=== PATIENT | male | born 1960 | race Caucasian/White ===

== ENCOUNTER 2016-06-29 | Outpatient (CLI) | END 2016-06-29 10:29 | disposition critical access hospital (66) | CPT/HCPCS: A0425; A0429 ==

== ENCOUNTER 2016-06-29 10:55 | Emergency (ER) | payer MEDICAID | END 2016-06-29 14:07 | disposition home or self-care (01) | DX: S90.822A Blister (nonthermal), left foot, initial encounter (principal); S90.821A Blister (nonthermal), right foot, initial encounter; X58.XXXA Exposure to other specified factors, initial encounter; G62.9 Polyneuropathy, unspecified; J44.9 Chronic obstructive pulmonary disease, unspecified; Z85.118 Personal history of other malignant neoplasm of bronchus and lung; F17.200 Nicotine dependence, unspecified, uncomplicated ==

== ENCOUNTER 2016-07-03 13:44 | Outpatient (CLI) | payer MEDICAID | END 2016-07-03 13:45 | disposition home or self-care (01) | DX: N40.0 Benign prostatic hyperplasia without lower urinary tract symptoms (principal) ==

== ENCOUNTER 2016-07-11 08:00 | Outpatient (CLI) | payer MEDICAID | END 2016-07-11 23:59 | disposition home or self-care (01) | DX: L97.519 Non-pressure chronic ulcer of other part of right foot with unspecified severity (principal); G62.9 Polyneuropathy, unspecified ==

== ENCOUNTER 2016-09-05 11:45 | Outpatient (CLI) | payer MEDICAID ==
--- NOTE | 2016-09-05 14:38 | XRAY Report ---
THREE-VIEW LEFT FOT: 09/05/2016 CLINICAL INDICATION: Pain. FINDINGS: AP, lateral, oblique views of the left foot are compared to previous films of 06/29/2016. There is no evidence of fracture or dislocation. Distal soft tissue swelling is unchanged. No radi opaque foreign body is seen in the soft tissues. IMPRESSION: SOFT TISSUE SWELLING. NO INTERVAL FRACTURE. JOB #: [id number] EXT JOB #:[id number]
== END 2016-09-05 11:46 | disposition home or self-care (01) ==
LOC: DI.S 11:45
PROVIDERS: ATTEND Nurse Practitioner Family
DX: M79.672 Pain in left foot (principal); G62.9 Polyneuropathy, unspecified; R22.42 Localized swelling, mass and lump, left lower limb

== ENCOUNTER 2016-10-03 14:25 | Outpatient (CLI) | payer MEDICAID | END 2016-10-03 14:26 | disposition home or self-care (01) | DX: G62.9 Polyneuropathy, unspecified (principal) ==

== ENCOUNTER 2016-10-09 13:50 | Outpatient (CLI) | payer MEDICAID | END 2016-10-09 13:51 | disposition home or self-care (01) | DX: M19.011 Primary osteoarthritis, right shoulder (principal) ==

== ENCOUNTER 2016-11-06 11:18 | Outpatient (CLI) | payer MEDICAID | END 2016-11-06 11:19 | disposition home or self-care (01) | DX: M51.36 Other intervertebral disc degeneration, lumbar region (principal); M47.896 Other spondylosis, lumbar region ==

== ENCOUNTER 2016-11-12 22:40 | Outpatient (CLI) | payer MEDICAID | END 2016-11-12 22:41 | disposition critical access hospital (66) | LOC: EMS 22:40 | PROVIDERS: ATTEND Surgery | DX: R07.9 Chest pain, unspecified (principal); R68.84 Jaw pain; R51 Headache | CPT/HCPCS: A0425; A0427 ==

== ENCOUNTER 2016-11-12 23:09 | Observation (INO) | payer MEDICAID ==
[2016-11-12] MEDS ORDERED: ASPIRIN CHEW 81 MG TABLET PO STA (23:15)
[2016-11-12] MEDS ORDERED: ASPIRIN CHEW 81 MG TABLET ONE (23:23)
[2016-11-12 23:36] LABS: BASOPHILS # (AUTO) 0.1 10^3/uL (0.0-0.1); EOSINOPHILS # (AUTO) 0.1 10^3/uL (0.0-0.7); EOSINOPHILS % (AUTO) 1.4 %; HCT - HEMATOCRIT 38.9 % (42.0-52.0); HGB - HEMOGLOBIN 13.5 g/dL (14.0-18.0); LYMPHOCYTES # (AUTO) 0.6 10^3/uL (1.5-3.5); LYMPHOCYTES % (AUTO) 10.8 %; MEAN CORPUSCULAR HEMOGLOBIN 32.7 pg (27.0-31.0); MEAN CORPUSCULAR HGB CONC 34.6 g/dL (32.0-36.0); MEAN CORPUSCULAR VOLUME 94.3 fL (80.0-94.0); MEAN PLATELET VOLUME 7.4 fL (7.4-11.4); MONOCYTES # (AUTO) 0.7 10^3/uL (0.0-1.0); MONOCYTES % (AUTO) 10.9 %; NEUTROPHILS # (AUTO) 4.5 10^3/uL (1.5-6.6); NEUTROPHILS % (AUTO) 75.9 %; NUCLEATED RED BLOOD CELLS AUTO 0.1 /100WBC; RED BLOOD COUNT 4.12 10^6/uL (4.70-6.10); RED CELL DISTRIBUTION WIDTH 15.8 % (12.0-15.0)
[2016-11-12 23:43] LABS: PT - PROTHROMBIN TIME 11.3 secs (9.9-12.6)
[2016-11-12 23:50] LABS: ALBUMIN/GLOBULIN RATIO 1.3 (1.0-2.2); BILIRUBIN,TOTAL 0.8 mg/dL (0.2-1.0); CALCIUM 8.7 mg/dL (8.5-10.3); CREATININE 0.9 mg/dL (0.6-1.2); TOTAL PROTEIN 7.3 g/dL (6.7-8.2)
--- NOTE | 2016-11-13 00:49 | CT Preliminary Report ---
Exam: CT Chest Angio (PE) IMPRESSION: 1. No pulmonary emboli seen. 2. Advanced emphysema. 3. Ill-defined irregular area of airspace opacity in the posterior segment of the right upper lobe is somewhat more platelike and less masslike compared with the prior CT of 2 years previously, but the overall region is larger at 7.2 x 5.0 cm. 4. Subtle bilateral interstitial disease with lower lobe predominance, increased compared with the pr ior CT. [facility] SITE ID: [id number]
[2016-11-13] MEDS ORDERED: IPRATROPIUM/ALBUTEROL 3 ML NEB INH STA ×3 (00:51→01:10)
--- NOTE | 2016-11-13 00:52 | CT Report ---
EXAM: CT ANGIOGRAM CHEST EXAM DATE: 11/13/2016 12:21 AM. CLINICAL HISTORY: Chest pain, hypoxia, tachycardia, lung ca. COMPARISON: 11/12/2014. TECHNIQUE: Routine helical imaging was performed through the chest in the pulmonary arterial phase. I V Contrast: Nonionic. Reconstructions: Coronal 3-D MIP reconstructions.Sagittal and coronal. In accordance with CT protocol optimization, one or more of the following dose reduction techniques w ere utilized for this exam: automated exposure control, adjustment of mA and/or KV based on patient s ize, or use of iterative reconstructive technique. FINDINGS: Pulmonary Arteries: Diagnostic quality: Adequate through the segmental arteries. No evidence for acute or chronic pulmona ry emboli. No evidence of right heart strain. Lungs/Pleura: Advanced emphysema. Irregular region of airspace opacity in the posterior segment of th e right upper lobe is larger but less masslike compared with the prior exam. Overall this area measur es about 7.2 x 5.0 cm, . There is mild interstitial disease bilaterally. No pleural effusion is s een. No pneumothorax is noted. Mediastinum: Heart size is normal. Coronary artery calcifications. Normal sized mediastinal lymph nod es. Thoracic Aorta: Ascending aorta measures 3.9 cm. Mild atherosclerosis. No aortic dissection. Upper Abdomen: Suspect fatty liver. Other: None. IMPRESSION: 1. No pulmonary emboli seen. 2. Advanced emphysema. 3. Ill-defined irregular area of airspace opacity in the posterior segment of the right upper lobe is somewhat more platelike and less masslike compared with the prior CT of 2 years previously, but the overall region is larger at 7.2 x 5.0 cm. 4. Subtle bilateral interstitial disease with lower lobe predominance, increased compared with the pr ior CT. [facility] Referring Provider Line: [phone] SITE ID: [id number]
--- NOTE | 2016-11-13 00:53 | XRAY Preliminary Report ---
Exam: XR Chest 1 View IMPRESSION: 1. Increased area of streaky right upper lobe opacity compared with 05/03/2015. See chest CT report. [facility] SITE ID: [id number]
--- NOTE | 2016-11-13 00:55 | XRAY Report ---
EXAM: CHEST RADIOGRAPHY EXAM DATE: 11/13/2016 12:21 AM. CLINICAL HISTORY: Chest pain and hypoxia. Tachycardia. Lung cancer. COMPARISON: 05/03/2015. TECHNIQUE: 1 view. FINDINGS: Lungs/Pleura: Moderate streaky right upper lobe opacity which is somewhat better seen on the chest CT . This area has increased in size compared with the prior exam. No pleural effusion. No pneumothorax. Mediastinum: Within exam limitations, cardiomediastinal contour is normal. Other: None. IMPRESSION: 1. Increased area of streaky right upper lobe opacity compared with 05/03/2015. See chest CT report. [facility] Referring Provider Line: [phone] SITE ID: [id number]
[2016-11-13] MEDS ORDERED: IPRATROPIUM/ALBUTEROL 3 ML NEB INH ONE ×3 (00:59→01:21)
--- NOTE | 2016-11-13 01:01 | ED Physician Documentation ---
PD HPI CHEST PAIN - Stated complaint Stated Complaint: CP - Chief complaint Chief Complaint: Cardiac - History obtained from History obtained from: Patient, EMS - History of Present Illness Timing - onset: How many days ago (2), Unknown Timing - onset during: Rest Timing - details: Gradual onset, Intermittant Quality: Pressure, Aching Location: Left chest, Left jaw Radiation: Jaw Improved by: Rest Worsened by: Exertion Associated symptoms: Feeling faint / dizzy. No: Shortness of air, Nausea, Vomiting Recently seen: Not recently seen - Additional information Additional information: Patient is a 56 year old male with a history of copd, (daily smoker and drinker) , htn, lung ca, htn and obesity who is presenting to the emergency department for chest pain. patient states that the chest pain has been going on for the last 2-3 days. Patient states that it is in his left chest with radiation into his left jaw. Patient denies aggravating or alleviating factors. Patient states that it never went away so he called ems. When ems arrived he was mildly htn. He was treated with nitro and morphine enroute. Review of Systems Constitutional: denies: Fever, Chills Eyes: denies: Photophobia Ears: denies: Ear pain, Drainage/discharge Nose: denies: Rhinorrhea / runny nose, Congestion Throat: denies: Dental pain / toothache, Oral lesions / sores, Sore throat Cardiac: reports: Chest pain / pressure. denies: Palpitations, Calf pain Respiratory: reports: Dyspnea, Cough, Wheezing GI: denies: Nausea, Vomiting, Constipation, Diarrhea : denies: Dysuria, Frequency, Hesitancy Skin: denies: Rash, Lesions Musculoskeletal: denies: Neck pain, Back pain, Extremity pain, Extremity swelling Neurologic: denies: Generalized weakness, Focal weakness Psychiatric: denies: Depressed Immunocompromised: denies: Immunocompromised PD PAST MEDICAL HISTORY - Past Medical History Cardiovascular: Hypertension, Coronary artery disease, Peripheral Vascular Disease Respiratory: Other Neuro: Peripheral neuropathy GI: GERD, Diverticulitis : Benign prostate hypertrophy Psych: Anxiety Musculoskeletal: Chronic back pain Derm: None - Past Surgical History Past Surgical History: Yes - Present Medications Home Medications: Ambulatory Orders Medication Instructions Recorded Confirmed Albuterol [Ventolin Hfa] 2 puffs INH BID PRN 11/11/14 11/12/16 Docusate Sodium 1 - 2 mg PO DAILY PRN 03/17/15 11/12/16 oxyCODONE [Roxicodone] 1 - 2 tab PO RTQ4H PRN 04/14/15 11/12/16 Loperamide [Imodium] 2 mg PO ONCE PRN 05/06/15 11/12/16 Lorazepam [Ativan] 1 mg PO Q8HR PRN 09/23/15 11/12/16 predniSONE [Deltasone] 2 tab PO BID 10/14/15 11/12/16 Metoprolol Succinate 100 mg PO DAILY 04/11/16 11/12/16 Potassium Gluconate 1 tab PO DAILY 04/11/16 11/12/16 Tamsulosin [Flomax] 1 cap PO DAILY 06/29/16 11/12/16 Cyanocobalamin (Vitamin B-12) 1,000 mcg PO DAILY 08/10/16 11/12/16 [Vitamin B-12] Esomeprazole Magnesium [Nexium 20 mg PO DAILY 08/10/16 11/12/16 24Hr] Gabapentin 600 mg PO BID 09/06/16 11/12/16 oxyCODONE [Roxicodone] 5 mg PO BID 09/06/16 11/12/16 Magnesium Oxide [Magnesium] 400 mg PO DAILY 10/09/16 11/12/16 Furosemide [Lasix] 20 mg PO DAILY 11/12/16 11/12/16 - Allergies Allergies/Adverse Reactions: Allergies Allergy/AdvReac Type Severity Reaction Status Date / Time BRONWYN Inhibitors Allergy Emesis Verified 11/12/16 23:14 lisinopril Allergy "THROAT Verified 11/12/16 23:14 SWELLING" - Social History Does the pt smoke?: Yes Smoking Status: Current every day smoker Does the pt drink ETOH?: Yes Does the pt have substance abuse?: No - Immunizations Immunizations are current?: Yes - POLST Patient has POLST: No PD ED PE NORMAL - Vitals Vital signs reviewed: Yes - General General: Alert and oriented X 3, No acute distress - HEENT HEENT: Atraumatic, PERRL - Neck Neck: No JVD - Neuro Neuro: No motor deficit, No sensory deficit, Normal speech - Psych Psych: Normal mood, Normal affect PD ED PE EXPANDED - General General: Alert, No acute distress - HEENT HEENT: Dry mucous membranes, Other (staining of teeth and walker from cigarette smoke) - Cardiac Cardiac: Tachy - Abdomen Abdomen: Other (obese). No: Rebound, Guarding - Extremities Extremities: Pedal edema bilateral Results - Vitals Vitals: Vital Signs - 24 hr 11/12/16 11/13/16 11/13/16 23:06 00:14 00:35 Temperature 36.6 C Heart Rate 123 H 98 Respiratory 22 16 Rate Blood Pressure 126/79 132/86 H O2 Saturation 93 94 89 L 11/13/16 11/13/16 00:36 01:11 Temperature Heart Rate 110 H Respiratory 16 Rate Blood Pressure O2 Saturation 95 Oxygen O2 Source Nasal cannula - EKG (time done) 2314 Rate: Rate (enter#) (116) Rhythm: Sinus tachycardia Bruin: Normal Intervals: Normal IN QRS: Normal Ischemia: ST depression Computer interpretation: Agree with computer - Labs Labs: Laboratory Tests 11/12/16 11/12/16 11/12/16 23:28 23:28 23:28 WBC 6.0 RBC 4.12 L Hgb 13.5 L Hct 38.9 L MCV 94.3 H MCH 32.7 H MCHC 34.6 RDW 15.8 H Plt Count 103 L MPV 7.4 Neut # 4.5 Lymph # 0.6 L [place] # 0.7 Eos # 0.1 Baso # 0.1 Absolute Nucleated RBC 0.00 Nucleated RBCs 0.1 PT 11.3 INR 1.0 APTT 27.0 Sodium 137 Potassium 4.0 Chloride 100 L Carbon Dioxide 25 Anion Gap 12.0 BUN 13 Creatinine 0.9 Estimated GFR (MDRD) 88 L Glucose 131 H Calcium 8.7 Total Bilirubin 0.8 AST 37 ALT 20 Alkaline Phosphatase 54 Troponin I B-Natriuretic Peptide Total Protein 7.3 Albumin 4.1 Globulin 3.2 Albumin/Globulin Ratio 1.3 Lipase 68 H 11/12/16 11/12/16 23:28 23:28 WBC RBC Hgb Hct MCV MCH MCHC RDW Plt Count MPV Neut # Lymph # [place] # Eos # Baso # Absolute Nucleated RBC Nucleated RBCs PT INR APTT Sodium Potassium Chloride Carbon Dioxide Anion Gap BUN Creatinine Estimated GFR (MDRD) Glucose Calcium Total Bilirubin AST ALT Alkaline Phosphatase Troponin I < 0.04 B-Natriuretic Peptide 22 Total Protein Albumin Globulin Albumin/Globulin Ratio Lipase - Rads (name of study) ct chest Radiology: Final report received (no PE, advanced emphysema, ), See rad report PD MEDICAL DECISION MAKING - ED course Complexity details: reviewed old records, reviewed results, re-evaluated patient , considered differential, d/w patient, d/w fitness consultant ED course: Patient was seen and examined at bedside. IV access was gained and labs were drawn. Patient was treated with aspirin. ekg was performed which showed sinus tachycardia. Due to the tachycardia, hypoxia and history of CA PE study was ordered. When patient's labs came back, PE study was performed. When patient returned the results were reviewed. patient had no PE. Patient's HEART score was 4 putting the patient at higher risk for a major cardiac event. Hospitalist was contacted and the case was discussed with her. patient was admitted under her service for further evaluation and care. Departure - Departure Disposition: ED Place in Observation Clinical Impression: Chest pain Condition: Good Discharge Date/Time: 11/13/16 01:41
[2016-11-13] MEDS ORDERED: ACETAMINOPHEN 325 MG TABLET PO PRN (01:17)
[2016-11-13] MEDS ORDERED: ONDANSETRON 4 MG/2 ML VIAL IVP PRN (01:17)
[2016-11-13] MEDS ORDERED: NITROGLYCERIN SL 0.4 MG TABLET SL PRN (01:21)
[2016-11-13] MEDS ORDERED: MAGNESIUM SULFATE 2 GRAM 50 ML IV ONE (01:27)
[2016-11-13] MEDS ORDERED: LORazepam 2 MG/ML SYRINGE IVP PRN (01:27)
[2016-11-13] MEDS ORDERED: LORazepam 0.5 MG TABLET PO PRN (01:34)
[2016-11-13] MEDS ORDERED: ALBUTEROL 8 GM INHALER INH PRN (01:34)
[2016-11-13] MEDS ORDERED: ALBUTEROL NEB 2.5 MG/3 ML INH PRN (01:37)
[2016-11-13 02:06] LABS: BASOPHILS % (AUTO) 0.7 %; EOSINOPHILS # (AUTO) 0.1 10^3/uL (0.0-0.7); EOSINOPHILS % (AUTO) 1.6 %; HCT - HEMATOCRIT 40.3 % (42.0-52.0); HGB - HEMOGLOBIN 13.4 g/dL (14.0-18.0); LYMPHOCYTES # (AUTO) 1.4 10^3/uL (1.5-3.5); LYMPHOCYTES % (AUTO) 24.7 %; MEAN CORPUSCULAR HGB CONC 33.4 g/dL (32.0-36.0); MEAN PLATELET VOLUME 7.4 fL (7.4-11.4); MONOCYTES # (AUTO) 0.6 10^3/uL (0.0-1.0); MONOCYTES % (AUTO) 11.7 %; NEUTROPHILS # (AUTO) 3.4 10^3/uL (1.5-6.6); NEUTROPHILS % (AUTO) 61.3 %; NUCLEATED RED BLOOD CELLS AUTO 0.1 /100WBC; RED CELL DISTRIBUTION WIDTH 15.6 % (12.0-15.0); UNCORRECTED WHITE BLOOD COUNT 5.6 x10^3/uL; WHITE BLOOD COUNT 5.6 x10^3/uL (4.8-10.8)
[2016-11-13 02:12] LABS: PT - PROTHROMBIN TIME 11.5 secs (9.9-12.6)
[2016-11-13 02:17] LABS: ALBUMIN/GLOBULIN RATIO 1.4 (1.0-2.2); BILIRUBIN,TOTAL 0.7 mg/dL (0.2-1.0); CALCIUM 8.7 mg/dL (8.5-10.3); POTASSIUM 3.8 mmol/L (3.5-5.0); TOTAL PROTEIN 7.3 g/dL (6.7-8.2)
[2016-11-13] MEDS: SODIUM CHLORIDE FLUSH 0.9% 10 ML SYRINGE IVP PRN ×4 (02:19→16:16)
[2016-11-13] MEDS: SODIUM CHLORIDE FLUSH 0.9% 10 ML SYRINGE IVP SCH ×4 (05:25→17:44)
[2016-11-13] MEDS: MORPHINE 2 MG/ML SYRINGE IVP PRN ×3 (05:25→16:12)
--- NOTE | 2016-11-13 05:57 | HISTORY & PHYSICAL EXAMINATION ---
DATE OF ADMISSION: 11/13/2016 CHIEF COMPLAINT: Chest pain. HISTORY OF PRESENT ILLNESS: This is a 56-year-old male with a history of COPD who presents with chest pain going on for approximately 2 days constant. He also has some epigastric discomfort along with s ome right upper quadrant pain. He notes some alternating constipation and diarrhea over the past few days. Denies any fevers or chills, has been nauseated x2 days and had some vomiting today. Notes no c hange in his COPD or coughing. He does have a history of coronary artery disease, had seen the cardio logist at [facility], but not recently. His evaluation in the emergency room includes an EKG, which shows sinus tachycardia at a rate of 116. No acute abnormalities seen. Initial troponin was le ss than 0.04. BNP is 22. Lipase was borderline elevated at 68. CTA of chest revealed no pulmonary emb adarsh, advanced emphysema, ill-defined irregular area of airspace and posterior segment of the right up per lobe, which is somewhat more platelike and less mass-like compared with prior CT of 2 years previ ously, but the oral region is larger, 7.2 and 5.0 cm. Of note, the patient does have a history of non small cell carcinoma of the lung that was treated with stereotactic radiation therapy. Her subtle sis ateral interstitial disease with lower lobe predominance compared with prior CT scan. Part of the [facility] er that was seen on CT of chest revealed suspect fatty liver. PAST MEDICAL HISTORY 1. History of chronic ITP associated with a prior, but treated hepatitis C. 2. History of nonsmall cell carcinoma of the lung, treated with stereotactic radiation. According to Dr. Ng's note from 11/01/2016, it was felt that there was no recurrence of nonsmall cell carc inoma of the lung present. 3. History of tobacco abuse. 4. History of ETOH dependence. MEDICATIONS UPON ADMISSION 1. Docusate 1-2 tabs p.o. daily. 2. Nexium 20 mg p.o. daily. 3. Lasix 20 mg p.o. daily. 4. Loperamide 2 mg p.o. p.r.n. 5. Magnesium oxide 400 mg p.o. daily. 6. Potassium gluconate 99 mg p.o. daily. 7. Oxycodone 5 mg p.o. b.i.d. and 1-2 tabs p.o. q.4h. p.r.n. pain. 8. Albuterol 2 puffs inhaled b.i.d. 9. Vitamin B12 1000 mcg p.o. daily. 10. Gabapentin 600 mg p.o. b.i.d. 11. Lorazepam 1 mg p.o. q.8h. p.r.n. anxiety. 12. Metoprolol succinate 100 mg p.o. daily. 13. Flomax 0.4 mg p.o. daily. 14. Prednisone 2 tabs p.o. b.i.d. ALLERGIES: BRONWYN INHIBITORS. SOCIAL HISTORY: Smoking half pack per day. Alcohol, 2 to 3 beers daily. FAMILY MEDICAL HISTORY: Mother and father with a history of lung carcinoma. REVIEW OF SYSTEMS: All other review of systems are reviewed and are negative except for as in HPI. PHYSICAL EXAMINATION VITAL SIGNS: Temperature is afebrile, heart rate 110, respiratory rate 18, 2 L nasal cannula, O2 satu ration 94%. CONSTITUTIONAL: Disheveled middle-aged male who appears older than his stated age. HEAD: Normocephalic, atraumatic. EYES: PERRLA-DC, EOMI. MOUTH: No lesions. NECK: No adenopathy. CHEST: Reveals scattered expiratory wheezes. COR: Regular rate and rhythm, S1, S2. ABDOMEN: Soft. There is tenderness in the epigastrium. Tenderness in the right upper quadrant. No rachel ound, no guarding. Bowel sounds are present. EXTREMITIES: Trace bilateral pedal edema. SKIN: Reveals no rashes. PSYCHIATRIC: Mood and affect are appropriate. NEUROLOGIC: Alert and oriented x3. Motor strength is intact bilaterally. LABORATORY: Sodium 137, potassium 4.0, chloride 100, bicarbonate 25, BUN 13, creatinine 0.9, calculat ed GFR 88, glucose 131, calcium 8.7, total bilirubin 0.8, AST 37, ALT 20, alkaline phosphatase 54, to jesús protein 7.3, albumin 4.1, lipase 68. INR 1.0, PTT 27.0. Alcohol level 141. White count 6.0, hemat ocrit 38.9, MCV 94.3, platelets 103, neutrophils 4.5. ASSESSMENT AND PLAN 1. Chest pain, acute, present on admission. It has been present for 2 days, constant. We will check s erial cardiac enzymes, but the fact that it first was negative suggests that he is not having an [place]. We will go ahead and check echocardiogram in a.m. Suspect is pain from radiating from a GI source. 2. Epigastric pain, right upper quadrant pain, acute, present on admission. We will go ahead and chec k an abdominal ultrasound, CT of abdomen if needed. We will repeat a lipase in the a.m. Recheck labs in a.m. We will go ahead and put her on IV Protonix b.i.d. May have alcoholic gastritis as another po ssibility or cholecystitis, biliary colic. 3. ETOH abuse, chronic, present on admission. We will place on CIWA protocol, supplement with MDI and thiamine. Check urine tox screen. 4. Tobacco dependence, chronic, present on admission. Employment Recruiter regarding importance of smoking cessati on and use of nicotine patches offered. 5. History of idiopathic thrombocytopenia purpura, chronic, present on admission, monitored by his on cologist. Continue prednisone therapy. 6. Chronic obstructive pulmonary disease, chronic, present on admission. Place on Albuterol nebs p.r. n. and DuoNebs q.i.d. and monitor. 7. History of nonsmall cell lung carcinoma, present on admission. According to Oncology's note on , currently has no evidence of any recurrence. 8. Deep venous thrombosis prophylaxis. We will place on subcutaneous Lovenox and SCDs. 9. Code status: THE PATIENT IS FULL CODE. TIME SPENT: 60 minutes. JOB #: [id number] EXT JOB #:[id number]
[2016-11-13] MEDS: PANTOPRAZOLE 40 MG VIAL IVP SCH ×2 (06:32→17:44)
[2016-11-13] MEDS ORDERED: IPRATROPIUM/ALBUTEROL 3 ML NEB INH SCH (07:00)
[2016-11-13 07:08] LABS: BILIRUBIN,URINE NEGATIVE (NEGATIVE); PH,URINE 5.5 PH (5.0-7.5)
[2016-11-13 07:14] LABS: UA CHARGE (STRIP ONLY) YES; UR CULTURE IF IND NOT INDICATED
[2016-11-13 08:03] LABS: BASOPHILS # (AUTO) 0.1 10^3/uL (0.0-0.1); BASOPHILS % (AUTO) 0.8 %; EOSINOPHILS # (AUTO) 0.1 10^3/uL (0.0-0.7); EOSINOPHILS % (AUTO) 1.1 %; HCT - HEMATOCRIT 36.6 % (42.0-52.0); HGB - HEMOGLOBIN 12.5 g/dL (14.0-18.0); LYMPHOCYTES # (AUTO) 0.8 10^3/uL (1.5-3.5); MEAN CORPUSCULAR HEMOGLOBIN 32.5 pg (27.0-31.0); MEAN CORPUSCULAR HGB CONC 34.2 g/dL (32.0-36.0); MEAN PLATELET VOLUME 7.4 fL (7.4-11.4); MONOCYTES # (AUTO) 0.7 10^3/uL (0.0-1.0); MONOCYTES % (AUTO) 7.5 %; NEUTROPHILS # (AUTO) 7.1 10^3/uL (1.5-6.6); NEUTROPHILS % (AUTO) 81.6 %; NUCLEATED RED BLOOD CELLS AUTO 0.1 /100WBC; RED BLOOD COUNT 3.86 10^6/uL (4.70-6.10); RED CELL DISTRIBUTION WIDTH 15.8 % (12.0-15.0); UNCORRECTED WHITE BLOOD COUNT 8.8 x10^3/uL; WHITE BLOOD COUNT 8.8 x10^3/uL (4.8-10.8)
[2016-11-13 08:26] LABS: ALBUMIN/GLOBULIN RATIO 1.4 (1.0-2.2); BILIRUBIN,TOTAL 0.9 mg/dL (0.2-1.0); BUN - BLOOD UREA NITROGEN 10 mg/dL (6-20); CALCIUM 8.7 mg/dL (8.5-10.3); CARBON DIOXIDE - CO2 23 mmol/L (21-32); CHLORIDE 102 mmol/L (101-111); CHOL/HDL RATIO 2.7 (<5.0); CHOLESTEROL 202 mg/dL; CREATININE 0.9 mg/dL (0.6-1.2); GFR - MDRD 88 (>89); GLUCOSE 101 mg/dL (70-100); HDL CHOLESTEROL 76 mg/dL; LDL/HDL RATIO 1.5 (<3.6); LIPASE 38 U/L (22-51); PHOSPHORUS 4.4 mg/dL (2.5-4.6); POTASSIUM 3.7 mmol/L (3.5-5.0); SODIUM 137 mmol/L (135-145); TOTAL PROTEIN 6.9 g/dL (6.7-8.2); TRIGLYCERIDES 45 mg/dL; VLDL CHOLESTEROL 9 mg/dL
[2016-11-13] MEDS ORDERED: THIAMINE 100 MG TABLET PO SCH (09:00)
[2016-11-13] MEDS ORDERED: METOPROLOL SUCCINATE 50 MG TABLET PO SCH (09:00)
[2016-11-13] MEDS ORDERED: PRENATAL VITAMIN TABLET PO SCH (09:00)
[2016-11-13] MEDS ORDERED: oxyCODONE 5 MG TABLET PO SCH (09:00)
[2016-11-13] MEDS ORDERED: TAMSULOSIN 0.4 MG CAPSULE PO SCH (09:00)
[2016-11-13] MEDS ORDERED: GABAPENTIN 300 MG CAPSULE PO SCH (09:00)
[2016-11-13] MEDS ORDERED: predniSONE 20 MG TABLET PO SCH (09:00)
[2016-11-13] MEDS ORDERED: ASPIRIN EC 81 MG TABLET PO SCH (09:00)
[2016-11-13] MEDS ORDERED: POLYETHYLENE GLYCOL 3350 17 GM PACKET PO SCH (09:00)
[2016-11-13] MEDS ORDERED: METOPROLOL 5 MG/5 ML VIAL IVP ONE (09:00)
[2016-11-13] MEDS ORDERED: CYANOCOBALAMIN 500 MCG TABLET PO SCH (09:00)
--- NOTE | 2016-11-13 13:10 | Discharge Plan ---
Discharge Plan Disposition: 01 Home, Self Care Condition: Stable Diet: Regular Shower Restrictions: No Driving Restrictions: No Additional Instructions or Follow Up instructions: Chest/epigastric pain x ~ 2 days persistently before admission; likely of GI source/ possible gastritis You were evaluated for possible cardiac pain. The heart enzymes were normal, your EKG did not have evidence of low oxygen to heart, your oxygen level was ok (it droppped to the low 90's hen your heart rate was fast. the fast rate was not irregular. ("sinus tachycardia") A CT-angiogram of the chest was done to be sure you did not have a blood clot in the lung; no clot An abdominal CT showed no acute finding of the gallbladder, liver or pancreas or bile ducts. Your liver enzymes and bile system labs were normal The echocardiogram per the rn procedures it support technician was unremarkable. ( formal read by cardiology pending, but she did not note left sided dysfunction. Since you were out of your nexium for a few days, this pain might reflect gastritis (inflammation of the stomach/ and or worse reflux off the nexium). It could be alcoholic gastritis (inflammation of the stomach wall due to alcohol.) It would be good to reduce the amount / frequency of beer intake to help this. (Your alcohol level was measureable at the time of presentation to the ED) You developed a fast heart rate ~ 50 after a nebulizer treatment (albuterol) YOu felt a little light headed , but after a small IV dose of you home metoprolol On our summary we will recommend a different bronchodilator (xopenex) rather than albuterol if you are in the hospital that doesnt affect your heart rate Continue your regular follow up with Blaire from the [facility] for the foot wounds No change in your medications. FYI regarding your ITP: your platelet count on admission was 103K (103,000, and on 11/13 it is 82K (82,000). frequent Alcohol can also affect the platelet count which is another reason to try to cut down No Smoking: If you smoke, Please STOP! Call for help. Follow-up with: Yessica Patel ARNP [Primary Care Provider] -
[2016-11-13 16:17] VITALS: BP 146/84
[2016-11-13] MEDS ORDERED: ALBUTEROL NEB 2.5 MG/3 ML INH SCH (19:00)
--- NOTE | 2016-11-14 10:00 | DISCHARGE SUMMARY ---
DATE OF ADMISSION: 11/13/2016 DATE OF DISCHARGE: 11/13/2016 PRIMARY CARE PHYSICIAN: RAMAN Harvey PRIMARY DISCHARGE DIAGNOSES 1. Epigastric pain, possibly alcoholic gastritis versus gastroesophageal reflux disease exacerbated by having run out of his Nexium. 2. Alcohol use. 3. Thrombocytopenia. 4. Idiopathic thrombocytopenic purpura. CONSULTATIONS: None. PROCEDURES: None. DIAGNOSTIC IMAGING STUDIES Chest x-ray done on 11/12/2016: Increased area of sticky right upper lobe opacity compared with April 2015. On a chest CT, this is further delineated. CTA of the chest on 11/12/2016: 1. No pulmonary emboli. 2. Advanced emphysema. 3. Ill-defined irregular area of airspace opacity in the posterior segment of the right upper lobe, somewhat more platelike and less masslike compared with the prior CT of 2 years previously, overall region 7.2 x 5 cm. Also, subtle bibasilar interstitial disease with lower lobe predominant. DIAGNOSTIC LABORATORY STUDIES: Hematology: White count 8.8, hemoglobin 12.5, hematocrit 36.6, platelets 82,000. admission and 94,000. INR 1.0: Sodium 137, potassium 3.7, chloride 102, bicarbonate 23, BUN 10, creatinine 0.9, glucose 101 , troponin less than 0.04 x3. BNP 22. Total cholesterol 202, LDL 117, HDL 76, triglycerides 45. Urine tox screen was positive for opiates and, of note, his alcohol level was 141 mg/dL. Urinalysis was unremarkable. An echocardiogram , thus far this is the preliminary read, normal LV size and function with an EF of approximately 65% to 70%. Compared with the prior echo, the EF actually had improved from an estimate of 50% previously. No wall motion abnormalities. Valves notable for only trace mitral regurgitation and mild tricuspid regurgitation. BRIEF HOSPITAL COURSE 1. The patient is a 56-year-old male who presented to the ED after nearly 2 days of continuous chest pain, which was primarily epigastric along with the right upper quadrant pain. 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 We requested outside records but they were not sent in the short time he was here. His EKG was without acute ischemic changes. Troponins were less than 0.04 x3. An echocardiogram actually showed an improved EF compared with prior studies. The patient had been empirically started on IV proton pump inhibitor. His abdominal imaging as well as his laboratory studies did not show any hepatobiliary dysfunction nor ductal dilatation, and in speaking further with the patient he is on Nexium chronically for GERD. He had run out for approximately a full week and only just got back on his Nexium 1 or 2 days prior to these symptoms, and of note he does drink approximately 4-5 beers daily. Given the otherwise negative workup, possibly this represented either alcoholic gastritis versus simply GERD that had been off his PPI. 2. Supraventricular tachycardia related to albuterol nebulizer; In the whey department operator of 11/13/2016 he was noted to have a heart rate in the 150s (sinus tach) . He had no chest pain with this. He was very mildly lightheaded. His oxygenation was in the low 90s, where it had been in the mid 90s. He responded to 5 mg of metoprolol IV and received his dose of oral Toprol for the day. He denied a prior history of PSVT or palpitations. Shortly thereafter it was learned from the respiratory therapist she had just given him an albuterol treatment and the SVT seems to have been related to the albuterol nebulizer. If he is admitted for any reason in the future, would recommend Xopenex nebs rather than the albuterol. He does tolerate his MDI ProAir without any difficulty at home. 3. Thrombocytopenia. His platelet count is stable. Neither 100,000. does have ITP, for which he is on prednisone. He was advised that the alcohol good effect not only possibly GERD symptoms, but also might affect his platelet count was advised to cut down on the alcohol. His pain was significantly improved at the time of discharge and he will continue his home medications, which include: 1. Magnesium oxide 400 mg once daily. 2. Oxycodone 5-10 mg every 4 hours p.r.n. pain. 3. Albuterol 2 puffs every 4 hours p.r.n. 4. Prednisone 20 mg once daily for his ITP. 5. Flomax 0.4 mg each evening. 6. Omeprazole 20 mg once daily. 7. Lasix 20 mg once daily. 8. Metoprolol succinate 100 mg once daily. 9. Ativan 1 mg every 8 hours p.r.n. anxiety. 10. Imodium 2 mg as needed for diarrhea. 11. Gabapentin 600 mg twice daily. 12. Chlorhexidine gluconate 50 mg once daily. PHYSICAL EXAMINATION ON THE DAY OF DISCHARGE GENERAL: The patient is a gentleman who appears significantly older than stated age, primarily because his hair is white and he has a very lengthy walker. He is alert, oriented and appropriate, very pleasant. HEENT: His sclerae are anicteric. His oral mucosa is moist. VITAL SIGNS: Afebrile 36.6, heart rate 87, 146/84, respiratory rate 20, 94% saturation on room air. CHEST: Clear to auscultation. CARDIOVASCULAR: This morning, his heart rate was 150s with a normal rate, which was normal sinus tachycardia on his EKG. He had a room air oxygenation of 91% on that and is consistently hemodynamically stable with a systolic between 126 and higher, with the rate improved to 1-teens after his morning beta-jessica and the IV beta jessica dose. His heart has a regular S1, S2. No appreciable extra sounds. ABDOMEN: Generous. EXTREMITIES: His periphery is notable for approximately 1-2+ edema both legs, left greater than right, with a black eschar at the base of his left 1st metatarsal and there is no open sore. This is being managed by Blaire Patino in the [facility] clinic. FOLLOWUP: Patient does not require any particular followup specifically for this hospitalization. He should continue to follow up for his ongoing management of his chronic medical problems. JOB #: [id number] EXT JOB #:[id number] MARINO
== END 2016-11-13 18:00 | disposition home or self-care (01) ==
LOC: EDUNIT# → SUPCPDRO 23:09 → ED 23:09 → MS 11-13 01:17
PROVIDERS: ADMIT Specialist; ATTEND Nurse Practitioner
DX: R10.13 Epigastric pain (principal); K21.9 Gastro-esophageal reflux disease without esophagitis; D69.3 Immune thrombocytopenic purpura; J44.9 Chronic obstructive pulmonary disease, unspecified; I11.9 Hypertensive heart disease without heart failure; I47.1 Supraventricular tachycardia; T48.6X5A Adverse effect of antiasthmatics, initial encounter; F10.10 Alcohol abuse, uncomplicated; F17.210 Nicotine dependence, cigarettes, uncomplicated; F41.9 Anxiety disorder, unspecified; E66.9 Obesity, unspecified; L98.8 Other specified disorders of the skin and subcutaneous tissue; Z68.32 Body mass index [BMI] 32.0-32.9, adult; Y92.230 Patient room in hospital as the place of occurrence of the external cause; Z86.19 Personal history of other infectious and parasitic diseases; Z85.118 Personal history of other malignant neoplasm of bronchus and lung; Z79.891 Long term (current) use of opiate analgesic; Z79.51 Long term (current) use of inhaled steroids; Z79.52 Long term (current) use of systemic steroids; Z79.899 Other long term (current) drug therapy
CPT/HCPCS: 36415; 71010; 71275; 80053; 80061; 80306; 80320; 81003; 83690; 83735; 83880; 84100; 84484; 85025; 85610; 85730; 93005; 93010; 93306; 94640; 96365; 96375; 96376; 99284; 99285; A9270; G0378; J7512; J7620; 81001; 87086

== ENCOUNTER 2016-12-11 15:08 | Outpatient (CLI) | payer MEDICAID ==
--- NOTE | 2016-12-12 08:43 | XRAY Report ---
X-RAY OF RIGHT SHOULDER, TWO VIEWS: 12/11/2016 FINDINGS: Soft tissues appear normal. Right AC joint shows no significant abnormality. There is a suggestion of some mild spurring along the inferior aspect of the distal right clavicle and inferior aspect of the right glenoid. No significant change is seen as compared to 10/09/2016. Some mild interstitial parenchymal disease is noted in the right lung. This was not definitely seen on preceding exam. Suggest chest, PA and lateral for further evaluation. IMPRESSION: 1. RIGHT SHOULDER SHOWS NO SIGNIFICANT ABNORMALITY AND NO SIGNIFICANT CHANGE. 2. INTERVAL APPEARANCE OF MILD INTERSTITIAL PARENCHYMAL DISEASE IS SEEN IN THE RIGHT [id number] LO BE. THE FINDING MAY REPRESENT ATELECTASIS OR SCARRING BUT CANNOT EXCLUDE A MINIMAL PNEUMONIA. CHE FLORES CHEST, PA AND LATERAL FOR FURTHER EVALUATION. JOB #: [id number] EXT JOB #:[id number]
--- NOTE | 2016-12-12 08:46 | XRAY Report ---
RIGHT FOOT, THREE VIEWS: 12/11/2016 CLINICAL HISTORY: The patient has been having some right toe pain. FINDINGS: Soft tissues appear normal. No significant osteoarthritic change is seen. No acute fract ures are noted. There is a suggestion of some subtle old periosteal callus formation in association with the lateral aspect of the distal shafts of the right 4th and 5th metatarsals. This suggests old metatarsal stress fractures. IMPRESSION: 1. NO ACUTE ABNORMALITY. 2. SUGGESTION OF OLD, HEALED RIGHT 4TH AND 5TH METATARSAL SHAFT FRACTURES. 3. SMALL SPUR OR EXOSTOSIS IS SEEN EXTENDING FROM THE MEDIAL ASPECT OF THE BASE OF THE MIDDLE PHALAN X OF THE RIGHT LITTLE TOE. 4. MILD OSTEOARTHRITIS IS SEEN AT THE PROXIMAL INTERPHALANGEAL JOINT OF THE RIGHT 3RD AND 4TH TOES W ITH MILD JOINT SPACE NARROWING. JOB #: [id number] EXT JOB #:[id number]
== END 2016-12-11 15:09 | disposition home or self-care (01) ==
LOC: DI.S 15:08
PROVIDERS: ATTEND Nurse Practitioner Family
DX: M25.511 Pain in right shoulder (principal); R91.8 Other nonspecific abnormal finding of lung field; M77.8 Other enthesopathies, not elsewhere classified; M19.071 Primary osteoarthritis, right ankle and foot

== ENCOUNTER 2016-12-15 15:49 | Outpatient (CLI) | payer MEDICAID ==
--- NOTE | 2016-12-15 19:08 | XRAY Report ---
EXAM: CHEST RADIOGRAPHY EXAM DATE: 12/15/2016 04:05 PM. CLINICAL HISTORY: PNEUMONIA. COMPARISON: 11/12/2016. TECHNIQUE: 2 views. FINDINGS: Lungs/Pleura: Persistent air space opacity right lower lung. There is right perihilar atelectasis and /or scarring, unchanged. The left lung remains clear. No pleural effusion or pneumothorax. Mediastinum: Heart and mediastinal contours are unremarkable. Other: None. IMPRESSION: Persistent right lower lung airspace opacities similar to the previous exam. No new findi ngs. RADIA Referring Provider Line: [phone] SITE ID: [id number]
== END 2016-12-15 15:50 | disposition home or self-care (01) ==
LOC: DI.S 15:49
PROVIDERS: ATTEND Nurse Practitioner Family
DX: J18.9 Pneumonia, unspecified organism (principal)
CPT/HCPCS: 71020

== ENCOUNTER 2017-01-05 12:00 | Outpatient (CLI) | payer MEDICAID | END 2017-01-05 12:01 | disposition home or self-care (01) | LOC: LAB.R 12:00 | PROVIDERS: ATTEND Nurse Practitioner Family | DX: Z79.891 Long term (current) use of opiate analgesic (principal) | CPT/HCPCS: 80307 ==

== ENCOUNTER 2017-01-23 12:08 | Outpatient (CLI) | payer MEDICAID | END 2017-01-23 12:09 | disposition critical access hospital (66) | LOC: EMS 12:08 | PROVIDERS: ATTEND Surgery | DX: R53.1 Weakness (principal); W18.39XA Other fall on same level, initial encounter; Y92.009 Unspecified place in unspecified non-institutional (private) residence as the place of occurrence of the external cause | CPT/HCPCS: A0425; A0429 ==

== ENCOUNTER 2017-01-23 12:08 | Emergency (ER) | payer MEDICAID ==
--- NOTE | 2017-01-23 13:17 | ED Physician Documentation ---
History of Present Illness - Stated complaint Stated Complaint: GLF - Chief complaint Chief Complaint: General - History obtained from History obtained from: Patient, EMS - Additonal information Additional information: The patient is a 56-year-old male with a history of lung cancer that was diagnosed in 2014, who presents with left leg weakness with frequent falling over the past 2 weeks. He fell today when his leg gave out on him. He denies any injury from falling. He has been using a cane to assist with ambulation. He states he has been dragging his left leg when walking for the past 2 or 3 weeks, and states that his left arm has felt "wimpy." He also complains of a right-sided headache. He denies chest pain, abdominal pain, vomiting or diarrhea. He denies dysuria or fever. In addition to lung cancer for which he underwent radiation therapy he has a history of peripheral neuropathy and history of left inguinal hernia. Review of Systems Constitutional: reports: Fatigue. denies: Fever Eyes: denies: Decreased vision Ears: denies: Tinnitus/ringing Nose: denies: Congestion Throat: denies: Sore throat Cardiac: denies: Chest pain / pressure, Palpitations Respiratory: denies: Cough GI: denies: Abdominal Pain, Vomiting, Diarrhea : denies: Dysuria Skin: denies: Rash Neurologic: reports: Focal weakness (Left upper and lower extremities.), Headache. denies: Seizure, Altered mental status PD PAST MEDICAL HISTORY - Past Medical History Past Medical History: Yes Cardiovascular: Hypertension, Coronary artery disease, Peripheral Vascular Disease Respiratory: Other (Lung cancer) Neuro: Peripheral neuropathy Endocrine/Autoimmune: None GI: GERD, Diverticulitis : Benign prostate hypertrophy Psych: Anxiety Musculoskeletal: Chronic back pain Derm: None - Past Surgical History Past Surgical History: Yes - Present Medications Home Medications: Ambulatory Orders Medication Instructions Recorded Confirmed Albuterol [Ventolin Hfa] 2 puffs INH Q4H PRN 11/11/14 01/23/17 oxyCODONE [Roxicodone] 10 mg PO QID PRN 04/14/15 01/23/17 Lorazepam [Ativan] 1 mg PO Q8HR PRN 09/23/15 01/23/17 predniSONE [Deltasone] 20 mg PO DAILY 10/14/15 01/23/17 Tamsulosin [Flomax] 0.4 mg PO QPM 06/29/16 01/23/17 Esomeprazole Magnesium [Nexium 20 mg PO DAILY 08/10/16 01/23/17 24Hr] Gabapentin 600 mg PO BID 09/06/16 01/23/17 Furosemide [Lasix] 20 mg PO DAILY 11/12/16 01/23/17 - Allergies Allergies/Adverse Reactions: Allergies Allergy/AdvReac Type Severity Reaction Status Date / Time BRONWYN Inhibitors Allergy Emesis Verified 01/23/17 12:54 lisinopril Allergy "THROAT Verified 01/23/17 12:54 SWELLING" - Social History Does the pt smoke?: Yes Smoking Status: Current every day smoker Does the pt drink ETOH?: Yes ETOH Use: Beer Does the pt have substance abuse?: No - Immunizations Immunizations are current?: Yes - POLST Patient has POLST: No PD ED PE NORMAL - Vitals Vital signs reviewed: Yes (Normal) - General General: Alert and oriented X 3, Well developed/nourished, Other (Ill kempt, with odor of stale alcohol on his breath.) - HEENT HEENT: Atraumatic, EOMI, Pharynx benign - Neck Neck: Supple, no meningeal sign, No adenopathy, No JVD - Cardiac Cardiac: RRR, No murmur - Respiratory Respiratory: No respiratory distress, Clear bilaterally - Abdomen Abdomen: Soft, Non tender, Other (Large left inguinal hernia, which I was able to reduce at the bedside with the patient in Trendelenburg.) - Back Back: No CVA TTP - Derm Derm: No rash - Extremities Extremities: No calf tenderness / cord, Other (1+ pedal edema bilaterally.1+ pedal edema bilaterally.) - Neuro Neuro: Alert and oriented X 3, Normal speech, Other (Decreased light touch sensation in the left upper extremity compared to the right. There is marked weakness in the left upper extremity and left lower extremity. No cranial nerve deficit is detected.) Results - Vitals Vitals: Vital Signs - 24 hr 01/23/17 01/23/17 01/23/17 17:00 19:38 21:14 Temperature 36.8 C 36.9 C Heart Rate 82 76 74 Respiratory 20 19 20 Rate Blood Pressure 121/69 161/92 H 163/97 H O2 Saturation 95 95 Oxygen O2 Source Room air - EKG (time done) 13:10 Rate: Rate (enter#) (74) Rhythm: NSR [place]: Normal Intervals: Normal [place] QRS: Normal Ischemia: Normal ST segments Computer interpretation: Agree with computer - Labs Labs: Laboratory Tests 01/23/17 01/23/17 01/23/17 13:05 13:52 13:52 WBC 8.0 RBC 4.17 L Hgb 13.3 L Hct 39.7 L MCV 95.2 H MCH 31.9 H MCHC 33.5 RDW 14.9 Plt Count 126 L MPV 7.0 L Neut # 6.7 H Lymph # 0.7 L [place] # 0.4 Eos # 0.2 Baso # 0.1 Absolute Nucleated RBC 0.00 Nucleated RBCs 0.0 Sodium 137 Potassium 4.1 Chloride 100 L Carbon Dioxide 26 Anion Gap 11.0 BUN 9 Creatinine 0.8 Estimated GFR (MDRD) 101 Glucose 104 H Calcium 9.1 Total Bilirubin 1.0 AST 34 ALT 21 Alkaline Phosphatase 59 Total Protein 7.6 Albumin 4.1 Globulin 3.5 Albumin/Globulin Ratio 1.2 Lipase 36 Urine Color YELLOW Urine Clarity CLEAR Urine pH 6.0 Ur Specific [place] <=1.005 Urine Protein NEGATIVE Urine Glucose (UA) NEGATIVE Urine Ketones NEGATIVE Urine Occult Blood NEGATIVE Urine Nitrite NEGATIVE Urine Bilirubin NEGATIVE Urine Urobilinogen 0.2 (NORMAL) Ur Leukocyte Esterase NEGATIVE Ur Microscopic Review NOT INDICATED Urine Culture Comments NOT INDICATED Urine Opiates Screen NEGATIVE Ur Oxycodone Screen POSITIVE H Urine Methadone Screen NEGATIVE Ur Propoxyphene Screen NEGATIVE Ur Barbiturates Screen NEGATIVE Ur Tricyclics Screen NEGATIVE Ur Phencyclidine Scrn NEGATIVE Ur Amphetamine Screen NEGATIVE U Methamphetamines Scrn NEGATIVE U Benzodiazepines Scrn NEGATIVE Urine Cocaine Screen NEGATIVE U Cannabinoids Screen NEGATIVE Ethyl Alcohol 232.2 - Rads (name of study) Head CT w/o Radiology: Prelim report reviewed, EMP read contemporaneously, See rad report ( Several highly vascular aggressive nonhemorrhagic lesions right frontal and probably right parietal lobe, as well as exuberant amount of adjacent malignant edema. Given his history of lung cancer, metastatic lung disease is first in the differential. Full differential of these lesions would also include abscesses.) PD MEDICAL DECISION MAKING - ED course Complexity details: reviewed old records, reviewed results, re-evaluated patient , considered differential, d/w patient, d/w internal audit consultant ED course: The patient's presentation is significant for frequent falling associated with edema on the right side of the brain associated with metastatic lesions. With his history of lung cancer these are most likely lung metastases. There is no intracranial hemorrhage on CT scan. Treatment in the emergency department included administration of dexamethasone 10 mg IV. I discussed his condition with Dr. Igor Damon, radiation oncologist, and subsequently with Dr. Ortega, the hospitalist. She evaluated the patient in the emergency department and subsequently discussed his condition with the interventional neurology team at [facility]. Determination was made to transfer the patient to [facility] for further evaluation and treatment. He is being transferred by [facility] ambulance. Transfer forms were completed. Departure - Departure Disposition: 02 Transfer Acute Care Hosp Clinical Impression: Brain metastases, History of lung cancer, Brain edema, Left-sided weakness Condition: Stable Discharge Date/Time: 01/23/17 21:25
[2017-01-23 13:21] LABS: BILIRUBIN,URINE NEGATIVE (NEGATIVE)
[2017-01-23 13:23] LABS: UA CHARGE (STRIP ONLY) YES; UR CULTURE IF IND NOT INDICATED
[2017-01-23 14:06] LABS: BASOPHILS # (AUTO) 0.1 10^3/uL (0.0-0.1); BASOPHILS % (AUTO) 1.5 %; EOSINOPHILS # (AUTO) 0.2 10^3/uL (0.0-0.7); EOSINOPHILS % (AUTO) 2.1 %; HCT - HEMATOCRIT 39.7 % (42.0-52.0); HGB - HEMOGLOBIN 13.3 g/dL (14.0-18.0); LYMPHOCYTES # (AUTO) 0.7 10^3/uL (1.5-3.5); LYMPHOCYTES % (AUTO) 8.3 %; MEAN CORPUSCULAR HEMOGLOBIN 31.9 pg (27.0-31.0); MEAN CORPUSCULAR HGB CONC 33.5 g/dL (32.0-36.0); MEAN CORPUSCULAR VOLUME 95.2 fL (80.0-94.0); MONOCYTES # (AUTO) 0.4 10^3/uL (0.0-1.0); MONOCYTES % (AUTO) 5.4 %; NEUTROPHILS # (AUTO) 6.7 10^3/uL (1.5-6.6); NEUTROPHILS % (AUTO) 82.7 %; RED BLOOD COUNT 4.17 10^6/uL (4.70-6.10); RED CELL DISTRIBUTION WIDTH 14.9 % (12.0-15.0)
[2017-01-23 14:18] LABS: ALBUMIN/GLOBULIN RATIO 1.2 (1.0-2.2); CALCIUM 9.1 mg/dL (8.5-10.3); CREATININE 0.8 mg/dL (0.6-1.2); POTASSIUM 4.1 mmol/L (3.5-5.0); TOTAL PROTEIN 7.6 g/dL (6.7-8.2)
--- NOTE | 2017-01-23 14:21 | CT Preliminary Report ---
Exam: CT Head W/O IMPRESSION: Several highly vascular aggressive nonhemorrhagic lesions right frontal and probably rig ht parietal lobe as well with exuberant amount of adjacent malignant edema. Given this gentleman's hi story of lung cancer, metastatic lung disease is first in the differential. Full differential of thes e lesions would also include abscesses. RADIA The above critical findings were discussed with by Dr. Kimberley Lam at 14:20 hrs on 01/23. SITE ID: [id number]
--- NOTE | 2017-01-23 14:59 | CT Report ---
EXAM: CT HEAD EXAM DATE: 01/23/2017 01:39 PM. CLINICAL HISTORY: Lung cancer. Patient fell today, could not get up. Left-sided weakness since the fa ll. COMPARISON: Head MRI 12/17/2014. No prior head CT. TECHNIQUE: Multiaxial CT images were obtained from the foramen magnum to the vertex. IV contrast: Non e. Reformats: Sagittal and coronal. In accordance with CT protocol optimization, one or more of the following dose reduction techniques w ere utilized for this exam: automated exposure control, adjustment of mA and/or KV based on patient s ize, or use of iterative reconstructive technique. FINDINGS: Parenchyma: 2.0 x 1.0 x 1.3 cm thick-walled hypervascular necrotic lesion superior mid right frontal lobe. Severa l millimeters posterior to it is a 1.2 cm similar appearing lesion. Both of these lesions are located at the cantu-white junction. Marked amount of edema with malignant characteristics, involving the sub cortical U- fibers throughout the right frontal white matter. As causes effacement of the sulci as we ll as right sylvian fissure. Equivocal visualization of several 4 mm and smaller similar lesions at the cantu-white junction superi or right parietal lobe. Moderate amount of nonspecific supratentorial white matter disease left cerebral hemisphere. Extraaxial Spaces: Normal for age. No subdural or epidural collections identified. Ventricles: Moderate effacement right lateral ventricle. No midline shift. No entrapment of the left lateral ventricle. Rest of the ventricle is of normal caliber. Sinuses: Imaged paranasal sinuses, orbits, and mastoids show no significant abnormality. Bones: No evidence of fracture or calvarial defect. No bony metastatic disease. Other: None. IMPRESSION: Several highly vascular aggressive nonhemorrhagic lesions right frontal and probably righ t parietal lobe as well with exuberant amount of adjacent malignant edema. Given this gentleman's his tory of lung cancer, metastatic lung disease is first in the differential. Full differential of these lesions would also include abscesses. RADIA The above critical findings were discussed with Dr. Moreno by Dr. Kimberley Lam at 14:20 hrs on 01/23/17. Referring Provider Line: [phone] SITE ID: [id number]
[2017-01-23] MEDS ORDERED: DEXAMETHASONE 10 MG/ML VIAL IVP STA (15:29)
[2017-01-23] MEDS ORDERED: DEXAMETHASONE 10 MG/ML VIAL ONE (15:35)
--- NOTE | 2017-01-23 20:46 | CONSULTATION NOTE ---
DATE OF CONSULTATION: 01/23/2017 00:00:00 REQUESTING PROVIDER: CONSULTATION LOCATION: Emergency room REASON FOR CONSULTATION: Neurologic changes. HISTORY OF PRESENT ILLNESS: This is a 56-year-old with a history of lung cancer for which she receive d radiation therapy that was completed 1-1/2 years ago. He is followed by a radiation oncologist. The patient states that he gets imaging studies of his chest every 6 months and that the last images wer e stable and he is not needed further radiation therapy. The patient does take prednisone daily. He also reports there is a history of "weakness of his left ventricle". He does not have any stents and denies any coronary disease. The patient presents to the emergency room with complaints of 3 weeks of falling and needing to use a cane for ambulation and then this morning having marked weakness of the left arm and leg with fallin g even more frequently today. The patient denies any chest pain, shortness of breath, fever, chills, cough, abdominal discomfort, nausea, vomiting or diarrhea. With his falls he has developed a bruise o marcin the right anterior hernandez which is healing. REVIEW OF SYSTEMS: The patient states he is seen in [facility] wound clinic for poorly healing wounds of his feet, but most recently these have all been epithelialized and he has not needed any wound care of t he feet. SOCIAL HISTORY: He is a current smoker. He drinks alcohol daily with beer, but denies excessive use. MEDICATIONS AT HOME: 1. Albuterol inhaler 2 puffs q. 4 hours p.r.n. 2. Oxycodone 10 mg p.o. q.i.d. p.r.n. 3. Ativan 1 mg p.o. every 8 hours p.r.n. 4. Prednisone 20 mg p.o. daily. 5. Flomax 0.4 mg p.o. every evening. 6. Nexium 20 mg p.o. daily. 7. Gabapentin 600 mg p.o. b.i.d. 8. Lasix 20 mg p.o. daily. ALLERGIES: BRONWYN INHIBITORS, SPECIFICALLY LISINOPRIL. FAMILY HISTORY: Is not known. PHYSICAL EXAMINATION: GENERAL: Reveals a white male who was in no distress, lying in the left lateral decubitus position an d being seen in the emergency room. VITAL SIGNS: His blood pressure is normal and heart rate is 60 to 70 in normal regular rhythm. HEENT: Shows normal moist mucosa of the oropharynx. He has poor dentition. His smile is symmetrical. Cranial nerves II through XII are grossly intact. NECK: Supple. There is no JVD in a supine position. CHEST: Has diminished breath sounds diffusely but no rales or rhonchi are heard. HEART: Sounds are normal with no audible murmur or gallop. ABDOMEN: Soft, with positive bowel sounds. It is normal. EXTREMITIES: Show 1+ edema bilaterally to the knees. There is an eschar over the right hernandez with wa rmth and redness of the area of the leg more distal to this eschar. The feet were not examined. NEUROLOGICALLY: He has decreased in strength of the left upper extremity and left lower extremity. LABORATORY DATA: Show white count of 8, hemoglobin 13.3, platelet count 126, sodium 137, potassium 4 .1, BUN is 9, creatinine 0.8, glucose 104. EKG: Normal sinus rhythm with a rate of 74, and within normal limits. Head CT showed 2.0 x 1.0 x 1.3 cm thick-walled hypervascular necrotic lesion of the superior mid-right frontal lobe and several mm posterior to it is a 1.2 cm similar-appearing lesion. Both of these lesions are located in the cantu w lon junction. There is marked amount of edema with malignant characteristics, involving the subcorti sean U fibers throughout the right frontal white matter, causing effacement of the sulci as well as th e right Sylvian fissure. There was a moderate amount of white matter disease of the left cerebral hem isphere. There is equivocal visualization of another smaller lesion in the right parietal lobe. The o verall impression is that of several highly vascular aggressive nonhemorrhagic lesions of the right f rontal and probably right parietal lobe as well with exuberant amount of adjacent malignant edema wit h differential of metastatic lung disease versus abscess. IMPRESSION: 1. Slowly progressive weakness with multiple falls and today marked left arm and leg and weakness. A bnormal head CT with evidence of brain edema as well as lesions of the brain suspicious of metastatic disease. 2. COPD with continued smoking. The patient is immunocompromised being on prednisone. PLAN: The patient was given IV dexamethasone x1 in the emergency room. I spoke to the [place] neurologis t at [facility] in [place] who advised that I contact the neurointensivist at [facility] who accept ed this patient in transfer for higher level of care. The patient will be transferred from the emerge ncy room to the accepting hospital (Dr. Montano had been contacted). Thank you for allowing us to participate in the care of this patient. JOB #: [id number] EXT JOB #:[id number]
[2017-01-23 21:14] VITALS: BP 163/97
== END 2017-01-23 21:25 | disposition short-term general hospital (02) ==
LOC: ED 12:08
DX: C79.31 Secondary malignant neoplasm of brain (principal); G93.6 Cerebral edema; M62.81 Muscle weakness (generalized); I10 Essential (primary) hypertension; I25.10 Atherosclerotic heart disease of native coronary artery without angina pectoris; I73.9 Peripheral vascular disease, unspecified; F17.200 Nicotine dependence, unspecified, uncomplicated; Z85.118 Personal history of other malignant neoplasm of bronchus and lung
CPT/HCPCS: 36415; 70450; 80053; 80306; 80320; 81001; 81003; 83690; 85025; 87086; 93005; 96374; 99284; 99285

== ENCOUNTER 2017-01-23 21:27 | Outpatient (CLI) | payer MEDICAID | END 2017-01-23 21:28 | disposition short-term general hospital (02) | LOC: EMS 21:27 | PROVIDERS: ATTEND Surgery | DX: R53.1 Weakness (principal); M54.5 Low back pain; M79.605 Pain in left leg; M79.604 Pain in right leg | CPT/HCPCS: A0170; A0425; A0428 ==

== ENCOUNTER 2017-02-26 16:05 | Outpatient (CLI) | payer MEDICAID | END 2017-02-26 16:06 | disposition short-term general hospital (02) | LOC: EMS 16:05 | PROVIDERS: ATTEND Surgery | DX: R53.1 Weakness (principal); H53.9 Unspecified visual disturbance; R51 Headache; R53.83 Other fatigue | CPT/HCPCS: A0425; A0429 ==

== ENCOUNTER 2017-06-10 19:59 | Outpatient (CLI) | payer MEDICAID | END 2017-06-10 20:00 | disposition short-term general hospital (02) | LOC: EMS 19:59 | PROVIDERS: ATTEND Surgery | DX: M79.672 Pain in left foot (principal); M79.89 Other specified soft tissue disorders | CPT/HCPCS: A0425; A0427 ==

== ENCOUNTER 2017-06-13 15:00 | Outpatient (CLI) | payer MEDICAID ==
[2017-06-13 16:13] LABS: CREATININE 1.8 mg/dL (0.6-1.2); MAGNESIUM 1.3 mg/dL (1.7-2.8)
== END 2017-06-13 15:01 | disposition home or self-care (01) ==
LOC: LAB.R 15:00
PROVIDERS: ATTEND Nurse Practitioner Family
DX: I10 Essential (primary) hypertension (principal); E87.6 Hypokalemia; E83.42 Hypomagnesemia
CPT/HCPCS: 80048; 83735

== ENCOUNTER 2017-06-26 12:25 | Outpatient (CLI) | payer MEDICAID ==
[2017-06-26 12:20] LABS: CALCIUM 9.3 mg/dL (8.5-10.3); CREATININE 1.4 mg/dL (0.6-1.2); MAGNESIUM 1.3 mg/dL (1.7-2.8)
== END 2017-06-26 12:26 | disposition home or self-care (01) ==
LOC: LAB 12:25
PROVIDERS: ATTEND Nurse Practitioner Family
DX: N28.9 Disorder of kidney and ureter, unspecified (principal)
CPT/HCPCS: 36415; 80048; 83735

== ENCOUNTER 2017-07-26 13:18 | Outpatient (CLI) | payer MEDICAID ==
--- NOTE | 2017-07-26 17:31 | CONSULTATION NOTE ---
Palliative Care Consultation - Referral Referring Provider: Dr. Jodee Castillo Time of Visit: [id number] [place] [facility] [place] [facility] [place] Reason: Non Small Cell Lung Cancer with brain mets s/p crainiotomy - Information Sources Records reviewed: Previous records reviewed History/Review of Systems obtained from: Patient, Family (sister Savana present) Exam limitations: No limitations - History of Present Illness Brief History of Present Illness: This is a 57-year-old gentleman who has metastatic non-small cell lung cancer status post craniotomy for brain metastases in 02/08. Patient has shown progression of disease from his CT scan done on 06/26/2017. He is to start immunotherapy of pembrolizumab (Keytruda) next week. He has recently and Sharif undergone amputation of his left second third fourth toe related to cellulitis and gangrene, he has had increased trouble with his lower extremity edema, and most recently several falls which has exacerbated his underlying neuropathies and chronic pain syndrome. He does have alcohol-related cardiomyopathy with systolic Heart failure, progressive neuropathy, peripheral vascular disease, and cervical disc disease with radiculopathy down his right arm. He has had increased swelling in his lower extremities, increased discomfort in his legs as well as his neck, and increased pain in his right chest area. He does report it radiates around to his front thoracic area. He has increased his use of his oxycodone 10 mg tabs up to 6 and 24 hours, he has ran out of his prescription early as it was for QID, and reports escalating pain and discomfort. .He has increased stressors as he currently is homeless, he is living with his sister Savana at this point in time on her couch, has been recently supported by home health for wound care following his surgery, as well as therapy services. He has recently been discharged though. Medical/Surgical History - Past Medical History Cardiovascular: reports: Congestive heart failure (systolic/etoh cardiomyopathy) , Hypertension, Coronary artery disease, Peripheral Vascular Disease Respiratory: reports: COPD, Shortness of breath, Other (Lung cancer dx 2013 with radiation tx; no hx of chemotherapy) Neuro: reports: Peripheral neuropathy Endocrine/Autoimmune: reports: None, Other (ITP) GI: reports: GERD, Chronic constipation, Diverticulitis : reports: Benign prostate hypertrophy Psych: reports: Anxiety Musculoskeletal: reports: Chronic back pain, Other (recent gangrene of left foot ) Derm: reports: None MRSA Hx?: No - Past Surgical History Ortho: reports: Amputation (2,3,4 toes of left foot) Cardiovascular: reports: Cardiac catheterization - Substance History Use: Uses substance without health or social issues: Tobacco (smoking about 8-9 cigarettes daily), Alcohol (2-3 beers daily) Tobacco Details: Cigarettes Social History - Living Situation Living arrangement: Homeless Living Situation: With family (Living with sister Savana who has 3 children who are teenagers at home. At this point in time does not have a solid plan, is hoping for placement, is supposedly working with [employer] application. Given phone number of [facility] for follow up on application status.) Family History - Family History Family History: Mother: , Cancer, Diabetes, Type 2, Father: , Cancer, Sister: Alive and Well (daughter has cancer), Cancer, Other family: Alive and Well Medications/Allergies - Medications Home Medications: Ambulatory Orders Medication Instructions Recorded Confirmed Albuterol [Ventolin Hfa] 2 puffs INH Q4H PRN 11/11/14 07/26/17 Lorazepam [Ativan] 1 mg PO Q8HR PRN 09/23/15 07/26/17 Tamsulosin [Flomax] 0.4 mg PO QPM 06/29/16 07/26/17 Esomeprazole Magnesium [Nexium 20 mg PO DAILY 08/10/16 07/26/17 24Hr] Oxycodone HCl [Oxycontin] 20 mg PO BID 07/04/17 07/26/17 Torsemide 10 mg PO DAILY PRN 07/04/17 07/26/17 Docusate Sodium 100 mg PO BID 07/26/17 07/26/17 Magnesium Oxide [Mag Ox] 400 mg PO DAILY 07/26/17 07/26/17 Oxycodone HCl 10 - 20 mg PO Q4HR PRN MDD 6 tabs 07/26/17 07/26/17 Potassium Chloride 20 meq PO BID 07/26/17 07/26/17 Vitamin B Complex 1 tab PO DAILY 07/26/17 07/26/17 levETIRAcetam [Levetiracetam] 500 mg PO BID 07/26/17 07/26/17 - Allergies Allergies/Adverse Reactions: Allergies Allergy/AdvReac Type Severity Reaction Status Date / Time BRONWYN Inhibitors Allergy Emesis Verified 01/23/17 12:54 lisinopril Allergy "THROAT Verified 01/23/17 12:54 SWELLING" Review of Systems - Constitutional Constitutional: reports: Fatigue, Poor appetite, Weight loss - Eyes Eyes: reports: Vision loss, Corrective lenses - Ears, Nose & Throat Ears, Nose & Throat: reports: Hearing loss, Dry mouth - Cardiovascular Cardiovascular: reports: Edema, Exertional dyspnea, Decr. exercise tolerance. denies: Chest pain - Respiratory Respiratory: reports: SOB at rest, SOB with exertion - Gastrointestinal Gastrointestinal: reports: Constipation (does not have much for bowels secondary to costs), Poor appetite, Early satiety - Genitourinary Genitourinary: reports: Frequency - Musculoskeletal Musculoskeletal: reports: Back pain, Stiffness, Limited range of motion, Muscle weakness, Assistive devices (dislikes walker but willing to learn more how to use;), Transfer issues (using transport wheelchair for mobility) - Integumentary Integumentary: reports: Dryness, Other (redness/edema le fluctuates; uses massage and "ice" to help) - Neurological Neurological: reports: General weakness, Abnormal gait - Psychiatric Psychiatric: reports: Depression, Anxiety - Hematologic/Lymphatic Hematologic/Lymphatic: reports: Recurrent infections (has struggled over this last year with "blisters" and wounds in LE) - All Other Systems All Other Systems: reports: Reviewed and negative Physical Exam - Vital Signs Temperature: 97.0 C Pulse Rate: 77 Respiratory Rate: 18 O2 Saturation: 99 (ra @ rest) Blood Pressure: 86/66 - Physical Exam General Appearance: positive: Mild distress, Anxious Eyes Bilateral: positive: Normal inspection ENT: positive: Dry mucous membranes Neck: positive: No JVD, Trachea midline, Stiff neck (limited ROM) Cardiovascular: positive: Regular rate & rhythm Respiratory: positive: Diminished in bases, Rhonchi (scattered anteriorly/clear with cough) Abdomen: positive: Non-tender, Soft Skin: positive: Other (LE dull pink ankles to mid calf; no open areas) Extremities: positive: Pedal edema (2+ LE edema; has not taken diuretic today) Neurologic/Psychiatric: positive: Oriented x3, Depressed mood/affect, Flat affect Palliative Care - POLST Patient has POLST: No Pain: Pain worsening, Location (cervical area radiating down right arm; upper right chest area worsening with cough; lower back pain; severe LE sharp shooting pains; worse at night. Using Oxycontin 20 ER mg BID; works with "background pain"; not on pregablin though on "list" or gabapentin as doesn't think it "helps"; using oxycodone 10 mg for BTP about 5-6 times a day; exacerbated pain with recent fall last week-had been taking 4 times a day; Left knee pain most acute pain currently) Tiredness/Fatigue: Moderate (4-6) Drowsiness/Sedation: Moderate (4-6) (not sleeping well; on couch and "not settled") Nausea: Mild (1-3) Depression: Moderate (4-6) Anxiety: Moderate (4-6) Dyspnea: Moderate (4-6) (having breathlessness and cough) Anorexia: Moderate (4-6) Sleep: Variable sleep pattern Constipation: Yes, Opoid induced, Unmanaged Feelings of wellbeing/Perceived Quality of Life: Poor, Worsening Performance Status: Patient walking short distances, does not trust himself with his balance off with new amputation. Is aware should use the walker, but needs some more walker training. He does have poor activity tolerance, has had a couple falls, this complicated given his current living situation. He is interested though in getting stronger, and building confidence in his ambulation. - Palliative Care Discussion: Patient currently believes his daughter is his DPO A, her name is Miya Robison, we did discuss in the context of current support whether his sister should be it or not. I did provide him with the DPOA form, as well as [address] form. His goal currently is to deal with his most immediate stressors, which of course are homelessness and his acute pain. He remains distressed at the continued difficulty with his ongoing health problems, particularly his lower extremity swelling and ongoing wound issues. Results - Lab Results Lab results reviewed: Yes Lab and Imaging Results: hct 32.2; Impression and Recommendations - Palliative Care Impression: This is a 57-year-old gentleman with metastatic adenocarcinoma of the lung with brain metastases that his symptoms progressed, he is about to start immunotherapy. He has multiple underlying comorbidities that are impacting his quality of life, including a recent toe amputations of his left foot, lower extremity edema, long-term peripheral neuropathy pain. He also has many psychosocial stressors, including trying to find permanent home, financial challenges, his goal is to try and stabilize both his physical and financial's status. Palliative care is to provide support for pain and symptom management and established goals of care. Recommendations/Counseling Done: 1. Acute on chronic pain. Patient with exacerbation of pain in neck and back and left knee secondary to recent fall, has been using oxycodone 10 mg tabs up to 6 tabs in 24 hours. He does have OxyContin 20 mg extended release twice daily for pain, he has since stopped any neuropathic pain medications. Counseling regarding underlying pathophysiology of pain, concern regarding regimen may need adjusting, patient willing to revisit in future visits. Will follow up with PCP regarding prescriptions, should only have one patient provider prescribing. Will revisit adding something for neuropathic pain, patient actually would probably be a good candidate for methadone, but given his unstable living situation more likely adding a try cyclic would be the next step. 2. Constipation multifactorial in origin and opioid induced. Patient with limited financial resources, has been instructed in the past to use senna, he does not know what he currently has at home available. We did discuss the need for regular bowel program given opioid use. 3. Lower extremity edema. Patient using torsemide 10 mg only as needed, patient does have underlying cardiomyopathy with systolic heart failure, did encourage when patient's blood pressure back into range greater than 100/60, to consider reinstating for torsemide. 4. Hypotension. Patient has been running low blood pressures, does not appear he is getting adequate fluid intake, as well as increased difficulty managing meds. Reviewed current medication list from home health reconciliation, again unclear if accurate at this point in time. Did discuss in the context of patient unable to keep up with fluids, making arrangements for IV fluids. Reports patient that he has had this before, and did not find this helpful nor did it address his underlying problem. Recommended Ensure for caloric intake as well as fluids, patient has very strong ideas about what is acceptable, particularly around taste, and cooking. Has had decreased intake overall. 5.Muscle weakness again multifactorial in origin. Patient with recent falls, increased pain exacerbation because of falls, reports increased pain and back pain. Is aware needs to work on gait training for its walker, home exercise program, and balance training. Is interested in follow-up on an outpatient as has been discharged from home health. Prescription sent for outpatient follow up at [facility] as is in [place] currently. 6.Advanced care planning. Patient's goals are to receive treatment, and helping to stabilize both his psychosocial situation, financial situation as well as his symptoms. Many barriers as far as being able to meet long-term care needs, will follow up with social work case manager at clinic to see where current standing is on [employer] and housing application. Time Spent: 60 minutes with greater than 50% of this done in counseling regarding pain and symptom management, establishing rapport, and anticipatory guidance.
== END 2017-07-26 13:19 | disposition home or self-care (01) ==
LOC: PC 13:18
PROVIDERS: ATTEND Nurse Practitioner Adult Health
DX: Z51.5 Encounter for palliative care (principal); G89.29 Other chronic pain; M54.12 Radiculopathy, cervical region; M54.42 Lumbago with sciatica, left side; K59.03 Drug induced constipation; T40.2X5D Adverse effect of other opioids, subsequent encounter; R60.0 Localized edema; I95.9 Hypotension, unspecified; M62.81 Muscle weakness (generalized); C34.90 Malignant neoplasm of unspecified part of unspecified bronchus or lung; C79.31 Secondary malignant neoplasm of brain; Z98.890 Other specified postprocedural states; Z89.422 Acquired absence of other left toe(s); Z91.81 History of falling; I42.6 Alcoholic cardiomyopathy; G62.9 Polyneuropathy, unspecified; I73.9 Peripheral vascular disease, unspecified; I10 Essential (primary) hypertension; F41.9 Anxiety disorder, unspecified; F17.210 Nicotine dependence, cigarettes, uncomplicated; Z79.891 Long term (current) use of opiate analgesic; Z79.51 Long term (current) use of inhaled steroids; F32.9 Major depressive disorder, single episode, unspecified
CPT/HCPCS: 99205

== ENCOUNTER 2017-08-02 04:58 | Outpatient (CLI) | payer MEDICAID | END 2017-08-02 04:59 | disposition critical access hospital (66) | LOC: EMS 04:58 | PROVIDERS: ATTEND Surgery | DX: R51 Headache (principal); R06.00 Dyspnea, unspecified | CPT/HCPCS: A0425; A0429 ==

== ENCOUNTER 2017-08-02 05:17 | Emergency (ER) | payer MEDICAID ==
--- NOTE | 2017-08-02 05:25 | ED Physician Documentation ---
History of Present Illness - Stated complaint Stated Complaint: CO2 EXPOSURE - History obtained from History obtained from: Patient, EMS - History of Present Illness Timing: Today - Additonal information Additional information: Patient is a 57 year old male with a history of metastatic lung cancer, chf and coronary artery disease who is presenting to the emergency department for possible carbon monoxide exposure. The heat was off in a house and there had been a generator going on for the last two days. Two children were brought in and the patient had originally refused but the patient's sister insisted that the patient come in. Patient recently had brain surgery and is supposed to start chemo. Patient complained of a mild headache. Patient states that he has had chest pain for over the past week. patient still smokes half a pack a day. Review of Systems Constitutional: denies: Fever, Chills, Myalgias Eyes: denies: Decreased vision Ears: denies: Ear pain Nose: denies: Rhinorrhea / runny nose, Congestion Throat: denies: Dental pain / toothache, Sore throat Cardiac: reports: Chest pain / pressure. denies: Calf pain Respiratory: denies: Dyspnea, Cough, Wheezing GI: denies: Abdominal Pain, Nausea, Vomiting Skin: denies: Rash, Lesions Musculoskeletal: denies: Neck pain, Back pain Neurologic: reports: Headache. denies: Near syncope, Syncope, Confused, Altered mental status, Head injury Psychiatric: denies: Depressed Immunocompromised: denies: Immunocompromised PD PAST MEDICAL HISTORY - Past Medical History Cardiovascular: Congestive heart failure, Hypertension, Coronary artery disease , Peripheral Vascular Disease Respiratory: COPD, Shortness of breath, Other Neuro: Peripheral neuropathy Endocrine/Autoimmune: None, Other GI: GERD, Chronic constipation, Diverticulitis : Benign prostate hypertrophy Psych: Anxiety Musculoskeletal: Chronic back pain, Other Derm: None - Past Surgical History Past Surgical History: Yes Ortho: Amputation Cardiovascular: Cardiac catheterization - Present Medications Home Medications: Ambulatory Orders Medication Instructions Recorded Confirmed Albuterol [Ventolin Hfa] 2 puffs INH Q4H PRN 11/11/14 07/26/17 Lorazepam [Ativan] 1 mg PO Q8HR PRN 09/23/15 07/26/17 Tamsulosin [Flomax] 0.4 mg PO QPM 06/29/16 07/26/17 Esomeprazole Magnesium [Nexium 20 mg PO DAILY 08/10/16 07/26/17 24Hr] Oxycodone HCl [Oxycontin] 20 mg PO BID 07/04/17 07/26/17 Torsemide 10 mg PO DAILY PRN 07/04/17 07/26/17 Docusate Sodium 100 mg PO BID 07/26/17 07/26/17 Magnesium Oxide [Mag Ox] 400 mg PO DAILY 07/26/17 07/26/17 Oxycodone HCl 10 - 20 mg PO Q4HR PRN MDD 6 tabs 07/26/17 07/26/17 Potassium Chloride 20 meq PO BID 07/26/17 07/26/17 Vitamin B Complex 1 tab PO DAILY 07/26/17 07/26/17 levETIRAcetam [Levetiracetam] 500 mg PO BID 07/26/17 07/26/17 - Allergies Allergies/Adverse Reactions: Allergies Allergy/AdvReac Type Severity Reaction Status Date / Time BRONWYN Inhibitors Allergy Emesis Verified 08/02/17 05:33 lisinopril Allergy "THROAT Verified 08/02/17 05:33 SWELLING" - Social History Does the pt smoke?: Yes Smoking Status: Current every day smoker Does the pt drink ETOH?: Yes Does the pt have substance abuse?: No - Immunizations Immunizations are current?: Yes - POLST Patient has POLST: No PD ED PE NORMAL - Vitals Vital signs reviewed: Yes - General General: Alert and oriented X 3, No acute distress - HEENT HEENT: Atraumatic, PERRL, Moist mucous membranes - Neck Neck: No JVD - Abdomen Abdomen: Soft, Non distended - Derm Derm: Normal color, No rash - Extremities Extremities: No deformity, Normal ROM s pain - Neuro Neuro: Alert and oriented X 3, planisher 2-12 intact, No motor deficit, No sensory deficit, Normal speech Eye Opening: Spontaneous Motor: Obeys Commands Verbal: Oriented GCS Score: 15 PD ED PE EXPANDED - HEENT HEENT: Atraumatic - Cardiac Cardiac: Tachy - Respiratory Respiratory: Clear to ausultation sis Results - Vitals Vitals: Vital Signs - 24 hr 08/02/17 08/02/17 08/02/17 05:20 05:30 06:13 Temperature 37.3 C Heart Rate 110 H 109 H 99 Respiratory 17 21 18 Rate Blood Pressure 96/62 84/61 L 89/64 L O2 Saturation 100 100 100 08/02/17 06:37 Temperature Heart Rate 88 Respiratory 21 Rate Blood Pressure 101/68 O2 Saturation 100 Oxygen O2 Source Room air Oxygen Flow Rate 10 - EKG (time done) 0525 Rate: Rate (enter#) (107) Rhythm: Sinus tachycardia [place]: Normal Intervals: Prolonged AR QRS: Normal Ischemia: Normal ST segments Compare to prior EKG: Changed from prior EKG - Labs Labs: Laboratory Tests 08/02/17 08/02/17 08/02/17 05:55 05:55 05:55 WBC 8.0 RBC 3.70 L Hgb 10.8 L Hct 31.8 L MCV 86.0 MCH 29.3 MCHC 34.0 RDW 17.0 H Plt Count 298 MPV 7.5 Neut # 6.0 Lymph # 0.9 L Stark # 0.6 Eos # 0.4 Baso # 0.1 Absolute Nucleated RBC 0.00 Nucleated RBC % 0.0 VBG pH VBG pCO2 VBG pO2 VBG HCO3 VBG Total CO2 VBG O2 Saturation VBG Base Excess VBG Total Hgb VBG Oxyhemoglobin VBG Carboxyhemoglobin VBG Methemoglobin Sodium 132 L Potassium 3.3 L Chloride 90 L Carbon Dioxide 26 Anion Gap 16.0 H BUN 10 Creatinine 1.5 H Estimated GFR (MDRD) 49 L Glucose 107 H Calcium 8.9 Total Bilirubin 0.6 AST 23 ALT < 10 L Alkaline Phosphatase 76 Troponin I < 0.04 Total Protein 6.7 Albumin 2.9 L Globulin 3.8 Albumin/Globulin Ratio 0.8 L Lipase 12 L 08/02/17 08/02/17 06:08 06:08 WBC RBC Hgb Hct MCV MCH MCHC RDW Plt Count MPV Neut # Lymph # Stark # Eos # Baso # Absolute Nucleated RBC Nucleated RBC % VBG pH 7.447 H VBG pCO2 39.0 L VBG pO2 39.8 VBG HCO3 26.3 VBG Total CO2 27.5 VBG O2 Saturation 81.8 H VBG Base Excess 2.2 H VBG Total Hgb 11.3 L VBG Oxyhemoglobin 67 L VBG Carboxyhemoglobin 17.8 H VBG Methemoglobin 0.2 Sodium Potassium Chloride Carbon Dioxide Anion Gap BUN Creatinine Estimated GFR (MDRD) Glucose Calcium Total Bilirubin AST ALT Alkaline Phosphatase Troponin I Total Protein Albumin Globulin Albumin/Globulin Ratio Lipase - Rads (name of study) chest x-ray Radiology: Final report received (no acute abnormality) ct head Radiology: Final report received (post resection of the mass, less edema, no acute changes) PD MEDICAL DECISION MAKING - ED course Complexity details: reviewed old records, reviewed results, re-evaluated patient , considered differential, d/w patient ED course: patient was seen and examined at bedside. patient was on supplemental oxygen. labs were drawn. ekg was performed and showed mild tachycardia but otherwise unremarkable. chest x-rays showed no acute changes. further questioning revealed that the patient's biggest concern was his head since he hit it and recentlay had had surgery. CT was ordered. When patient returned the results were reviewed. Patient had no acute changes on his CT. patient's CO2 level was initially elevated but patient was a daily smoker and was treated with 90 minutes of non-rebreather. Patient had multiple co-morbidities but no acute changes. Patient required no further inpatient work up and was stable for discharge with outpatient follow up. Departure - Departure Disposition: 01 Home, Self Care Clinical Impression: Carbon monoxide poisoning Condition: Good Instructions: ED CO Poisoning Follow-Up: primary,care provider [Other] - Tomorrow Comments: It is important to stay out of your house until the CO has cleared. You should follow up with your doctor today at your appointment. You may return to the emergency department as needed for new, worsening or uncontrollable symptoms.
[2017-08-02] MEDS ORDERED: SODIUM CHLORIDE 0.9% 1,000 ML IV ONE (05:41)
--- NOTE | 2017-08-02 05:56 | XRAY Report ---
EXAM: CHEST RADIOGRAPHY EXAM DATE: 08/02/2017 05:38 AM. CLINICAL HISTORY: Short of breath, lung cancer. COMPARISON: 06/26/2007 CT, 11/12/2016. TECHNIQUE: 1 view. FINDINGS: Lungs/Pleura: Large volumes. Chronic right perihilar opacity, better evaluated by CT. No new focal op acities evident. No pneumothorax or pleural effusion. Mediastinum: Within exam limitations, cardiomediastinal contour is normal. Other: None. IMPRESSION: 1. COPD without acute process seen in the chest. 2. Chronic right perihilar opacity, compatible with history of lung cancer, better evaluated by CT. [facility] Referring Provider Line: [phone] SITE ID: [id number]
[2017-08-02 06:07] LABS: BASOPHILS # (AUTO) 0.1 10^3/uL (0.0-0.1); BASOPHILS % (AUTO) 1.2 %; EOSINOPHILS # (AUTO) 0.4 10^3/uL (0.0-0.7); EOSINOPHILS % (AUTO) 4.7 %; HGB - HEMOGLOBIN 10.8 g/dL (14.0-18.0); LYMPHOCYTES # (AUTO) 0.9 10^3/uL (1.5-3.5); LYMPHOCYTES % (AUTO) 11.8 %; MEAN CORPUSCULAR HEMOGLOBIN 29.3 pg (27.0-31.0); MEAN PLATELET VOLUME 7.5 fL (7.4-11.4); MONOCYTES # (AUTO) 0.6 10^3/uL (0.0-1.0); MONOCYTES % (AUTO) 7.4 %; NEUTROPHILS % (AUTO) 74.9 %; PLT - PLATELET COUNT 298 10^3/uL (130-450)
[2017-08-02 06:11] LABS: VBG BASE EXCESS 2.2 mmol/L (-2 - +2); VBG PH 7.447 (7.31-7.41); VBG PO2 39.8 mmHg (25-47); VBG TOTAL CO2 27.5 mmol/L (24-29)
[2017-08-02 06:20] LABS: ALBUMIN 2.9 g/dL (3.2-5.5); ALBUMIN/GLOBULIN RATIO 0.8 (1.0-2.2); ALKALINE PHOSPHATASE 76 IU/L (42-121); ALT ALANINE AMINOTRANSFERASE < 10 IU/L (10-60); AST ASPARTATE AMINOTRANSFERASE 23 IU/L (10-42); BILIRUBIN,TOTAL 0.6 mg/dL (0.2-1.0); BUN - BLOOD UREA NITROGEN 10 mg/dL (6-20); CALCIUM 8.9 mg/dL (8.5-10.3); CARBON DIOXIDE - CO2 26 mmol/L (21-32); CHLORIDE 90 mmol/L (101-111); CREATININE 1.5 mg/dL (0.6-1.2); GFR - MDRD 49 (>89); GLUCOSE 107 mg/dL (70-100); LIPASE 12 U/L (22-51); SODIUM 132 mmol/L (135-145); TOTAL PROTEIN 6.7 g/dL (6.7-8.2)
--- NOTE | 2017-08-02 06:52 | CT Preliminary Report ---
Exam: CT HEAD W/O IMPRESSION: 1. Compared to the brain CT from 01/23/2017, interval resection of a mass in the posterior right fron jesús lobe with markedly decreased vasogenic edema throughout the right cerebral hemisphere. 2. No acute intracranial process identified on the current study. [facility] SITE ID: [id number]
--- NOTE | 2017-08-02 06:59 | CT Report ---
EXAM: CT HEAD EXAM DATE: 08/02/2017 06:34 AM. CLINICAL HISTORY: Shortness of breath, fall, prior brain surgery. COMPARISON: Brain CT from 01/23/2017. TECHNIQUE: Multiaxial CT images were obtained from the foramen magnum to the vertex. Reformats: Coron al. IV contrast: None. In accordance with CT protocol optimization, one or more of the following dose reduction techniques w ere utilized for this exam: automated exposure control, adjustment of mA and/or KV based on patient s ize, or use of iterative reconstructive technique. FINDINGS: Parenchyma: Since the prior brain CT, there has been interval resection of the mass in the posterior right frontal lobe. No additional intracranial mass lesion is identified. No acute intracranial hemor rhage is seen. Vasogenic edema throughout the right frontal and parietal lobes has resolved. However, patchy cerebral white matter hypodensity persists which could reflect posttreatment changes or chron ic microvascular ischemic changes. The cantu-white matter differentiation remains distinct elsewhere i n the brain. Extraaxial Spaces: Normal for age. No subdural or epidural collections identified. Ventricles: The ventricles are midline without evidence of hydrocephalus or ventricular trapping. Sinuses and Orbits: Mild mucosal thickening is noted in the right maxillary sinus. The orbits and mas toid sinuses are unremarkable. Bones: Postsurgical changes from a right-sided craniotomy are noted. There is no acute calvarial frac ture or scalp hematoma. Other: Mild intracranial atherosclerosis is noted. IMPRESSION: 1. Compared to the brain CT from 01/23/2017, interval resection of a mass in the posterior right fron jesús lobe with markedly decreased vasogenic edema throughout the right cerebral hemisphere. 2. No acute intracranial process identified on the current study. [facility] Referring Provider Line: [phone] SITE ID: [id number]
[2017-08-02 09:45] VITALS: BP 101/79
== END 2017-08-02 09:46 | disposition home or self-care (01) ==
LOC: EDUNIT# → ED 05:17
DX: T58.8X1A Toxic effect of carbon monoxide from other source, accidental (unintentional), initial encounter (principal); R51 Headache; Y92.029 Unspecified place in mobile home as the place of occurrence of the external cause; C78.00 Secondary malignant neoplasm of unspecified lung; I11.0 Hypertensive heart disease with heart failure; I50.9 Heart failure, unspecified; I25.10 Atherosclerotic heart disease of native coronary artery without angina pectoris; I73.9 Peripheral vascular disease, unspecified; G62.9 Polyneuropathy, unspecified; K21.9 Gastro-esophageal reflux disease without esophagitis; N40.0 Benign prostatic hyperplasia without lower urinary tract symptoms; F17.200 Nicotine dependence, unspecified, uncomplicated
CPT/HCPCS: 36415; 70450; 71045; 80053; 82375; 82803; 83690; 84484; 85025; 93005; 96360; 96361; 99284

== ENCOUNTER 2017-08-02 10:33 | Outpatient (CLI) | payer MEDICAID | END 2017-08-02 10:34 | disposition home or self-care (01) | LOC: PC 10:33 | PROVIDERS: ATTEND Nurse Practitioner Adult Health | DX: Z51.5 Encounter for palliative care (principal) ==

== ENCOUNTER 2017-08-10 14:17 | Outpatient (CLI) | payer MEDICAID ==
--- NOTE | 2017-08-10 18:06 | CONSULTATION NOTE ---
Palliative Care Follow Up - Referral Referring Provider: Dr. Jodee Castillo Time of Visit: [id number] Referral setting: Home (Patient is seen in his home setting secondary is considerable and taxing effort to leave the home as well as to facilitate treatment plan.) Referral Reason: Metastatic Lung Cancer - Information Sources Records reviewed: RN notes reviewed, Previous records reviewed History/Review of Systems obtained from: Patient Exam limitations: Clinical condition (Patient with short term memory issues; but appropriate answers for exam) - History of Present Illness Update Brief HPI Update: This is a 57-year-old gentleman with adenocarcinoma of the lung, with known brain metastases, and progressive disease now starting immunotherapy. He did receive his first dose a couple days ago, he is having some increased joint flare and discomfort, as well as perceived increased discomfort in his lower peripheral edema. He has multiple underlying comorbidities, as well as many financial and psychosocial stressors. I am seen in his home setting to try and assist with treatment planning, as well as evaluate medication adherence, particularly in the context of his opioid use. He continues to have severe fatigue, intermittent confusion, high anxiety, and depression. Patient presents this morning with dry heaves, exacerbation of his pain, and poor sleep. Social History - Living Situation Living arrangement: Other (Currently staying on the couch in living room area of his sister up in [place], this is a temporary arrangement until further housing can be arranged.) Medications/Allergies - Medications Home Medications: Ambulatory Orders Medication Instructions Recorded Confirmed Albuterol [Ventolin Hfa] 2 puffs INH Q4H PRN 11/11/14 08/08/17 Lorazepam [Ativan] 1 mg PO Q8HR PRN 09/23/15 08/08/17 Tamsulosin [Flomax] 0.4 mg PO QPM 06/29/16 08/08/17 Esomeprazole Magnesium [Nexium 20 mg PO DAILY 08/10/16 08/08/17 24Hr] Oxycodone HCl [Oxycontin] 20 mg PO BID 07/04/17 08/08/17 Torsemide 10 mg PO DAILY PRN 07/04/17 08/08/17 Docusate Sodium 100 mg PO BID 07/26/17 08/08/17 Magnesium Oxide [Mag Ox] 400 mg PO DAILY 07/26/17 08/08/17 Oxycodone HCl 10 - 20 mg PO Q4HR PRN MDD 6 tabs 02/01/18 02/14/18 Potassium Chloride 20 meq PO BID 07/26/17 08/08/17 Vitamin B Complex 1 tab PO DAILY 07/26/17 08/08/17 levETIRAcetam [Levetiracetam] 500 mg PO BID 07/26/17 08/08/17 Sennosides [Senna Lax] 2 tab PO BID 08/10/17 08/10/17 - Allergies Allergies/Adverse Reactions: Allergies Allergy/AdvReac Type Severity Reaction Status Date / Time BRONWYN Inhibitors Allergy Emesis Verified 08/02/17 05:33 lisinopril Allergy "THROAT Verified 08/02/17 05:33 SWELLING" Review of Systems - Constitutional Constitutional: reports: Fatigue, Poor appetite (eats a meal about once a day; otherwise just snacks), Weight loss (no weights available) - Eyes Eyes: reports: Vision loss (This is actually been huge problematic component to patient's care, he can only see very large print, unable to read pill bottles, this is worsened over the last several months. It is suspect is most likely related to his treatment/brain metastases.), Corrective lenses - Ears, Nose & Throat Ears, Nose & Throat: reports: Hearing loss, Nasal congestion, Dental decay, Dry mouth - Cardiovascular Cardiovascular: reports: Irregular heart rate, Palpitations, Edema, Lightheadedness, Exertional dyspnea, Decr. exercise tolerance, Orthopnea - Respiratory Respiratory: reports: Cough, Sputum production, Wheezing, Orthopnea, SOB at rest , SOB with exertion - Gastrointestinal Gastrointestinal: reports: Constipation, Nausea (dry heaves), Poor appetite, Early satiety - Genitourinary Genitourinary: reports: Urgency - Musculoskeletal Musculoskeletal: reports: Muscle pain, Back pain, Muscle aches, Stiffness, Limited range of motion, Muscle weakness, Assistive devices (uses rolling chair in house to get around; walker/wheelchair for appointments) - Integumentary Integumentary: reports: Dryness, Other (venous stasis lower extremities) - Neurological Neurological: reports: General weakness, Headache, Dizziness, Numbness ( bilateraly peripheral neuropathy), Memory problems, Abnormal gait, Slurred speech (speech difficult to understand at times) - Psychiatric Psychiatric: reports: Depression, Anxiety - Endocrine Endocrine: reports: Intolerance to heat - Hematologic/Lymphatic Hematologic/Lymphatic: reports: Anemia (31.8 hct) - All Other Systems All Other Systems: reports: Reviewed and negative Physical Exam - Vital Signs Temperature: 98.8 C Pulse Rate: 64 Respiratory Rate: 20 O2 Saturation: 95 (ra @ rest) Blood Pressure: 102/64 - Physical Exam General Appearance: positive: Mild distress, Anxious, Lethargic Eyes Bilateral: positive: Conjunctivae nml ENT: positive: Other (poor dentition) Neck: positive: No JVD, Trachea midline, Stiff neck Cardiovascular: positive: Regular rate & rhythm Respiratory: positive: Diminished throughout, Rhonchi (loose cough; sputum thick elizalde in color;) Abdomen: positive: Non-tender, Soft, Nml bowel sounds Skin: positive: Other (had "ice pack" wrapped with bronwyn wraps on lower extemities on arrival; skin bright pink from cold; faded through visit; no open areas or bright erythema but difficult to tell) Extremities: positive: Pedal edema (Patient reports was without his torsemide for about 10-11 days, he does have 1-2+ pedal edema up to about his mid calf, he does tend to sit with his feet in a dependent position.) Neurologic/Psychiatric: positive: Oriented x3, Weakness, Depressed mood/affect, Flat affect Palliative Care - POLST Patient has POLST: No Pain: Pain worsening, Location (Patient perceives increased pain and flare with immunotherapy in joints, particularly in his left hand, neck, and shoulders. He does have long-term peripheral neuropathy who feels this has worsened with increased pain on the balls of his feet. He currently is on OxyContin 20 mg twice daily, using oxycodone 10 mg tabs 4-6 per day, we discussed gabapentin he reports it was too sedating and did not do well with it previously. He also reports residual right rib pain from a previous fall.) Tiredness/Fatigue: Severe (7-10) Drowsiness/Sedation: Moderate (4-6) Nausea: Severe (7-10), With vomiting (Patient with dry heaves on arrival, he reports this is intermittent and more indicative when he is stressed. He reports he is quite stressed currently with his current situation. He had gone to [employer] yesterday with his daughter and continues to be frustrated with this.) Depression: Moderate (4-6) Anxiety: Severe (7-10) Dyspnea: Severe (7-10) Anorexia: Moderate (4-6) (Reports taste changes as well as difficulty getting access to food, continues to drink maybe 1 beer in 24 hours.) Sleep: Variable sleep pattern (Had a very difficult night sleep last night, reports this is related to his appointment with [employer] yesterday.) Constipation: Yes, Opoid induced, Unmanaged Feelings of wellbeing/Perceived Quality of Life: Poor, Worsening Performance Status: Patient quite frail and weak, does use rolling chair to ambulate around the house. Does have increased confusion particularly when he uses his Lorazepam or increased pain meds. He is so most likely impacted by his difficulty with reading, thus dependent on his memory as he is unable to take notes. He reports this is how he is coped in the past, and his lack of eyesight has been frustrating and overwhelming for him. Does have difficulty bathing because of his fatigue and shortness of breath, he does report dizziness also interferes with his ability to provide self-care. I would put him at a PPS at 60%. - Palliative Care Discussion: Patient has had multiple stressors, he has been trying to get Social Security disability, and because of his unstable living situation did not realize he had an appointment with [facility] until yesterday. He was as a result of documentation, needing to take a "payee" with him, he did take his daughter candosito though he has great concerns. As this means that the money goes into her account, she does have some reservations as far as trusting that he will have access to it. He is also quite concerned that if he makes different arrangements, she will disown him again. There has been a somewhat volatile relationship. He is unclear when the money will finally appear, is hoping at that point in time will have more options as far as follow-up with housing. Though it does not appear he has anyone specifically helping him navigate this task. He has been in contact with trenton from [employer] as well as Lorin from social work. Patient also has very poor insight into the seriousness of his illness, he did have metastatic disease present with as far as brain metastases earlier in the year, but has very little understanding that he has been receiving palliative interventions, with the hope to extend his quantity and quality of life. His understanding he was going for a "cure". This is somewhat distressing to him though it does appear necessary to be able to discuss this more for long-term planning. He is in agreement with this. I will follow-up with Dr. Castillo as far as expected prognosis particularly in the light of his psychosocial situation and need for long-term planning. Patient up to this point in time has wanted to be a "full code" though he is definitely poor risk for a good outcome if he were to have a need for CPR. Of note patient did take care of his father who of lung cancer at home for about 3 years so he has some perception of an experience of this journey from the viewpoint of a caregiver. Results - Lab Results Lab results reviewed: Yes Impression and Recommendations - Palliative Care Impression: This is a 57-year-old gentleman with metastatic adenocarcinoma of the lung with brain metastases, with progressive disease. He has started immunotherapy, he has multiple underlying comorbidities that are impacting his quality of life including recent toe amputations of his left foot, lower extremity edema, as well as long-term peripheral nerve neuropathic pain that is quite severe. He presents with multiple challenges both psychosocial and financial stressors, his goal is to stabilize his current situation. Palliative care to provide support for symptom management and coordination of care as well as assistance and anticipatory guidance Recommendations/Counseling Done: 1.Acute on chronic pain. Patient is self-medicating from his bottles his OxyContin, and his oxycodone 10 mg tabs. We did discuss in the context of opioid safety, and need to stay within prescribed amount. He has aware, and often runs out previous to his prescription. He does feel currently though his current regimen is satisfactory, he is not interested in adding anything else for pain as far as a neuropathic pain medication. He does feel his pain is been exacerbated with his recent immunotherapy, will continue to watch this, had encouraged to add just some acetaminophen but he declined. 2. Metastatic lung cancer. Patient is getting palliative treatment, patient with limited understanding regarding this, will follow up with his oncologist regarding prognostication to be able to support him in long-term planning. 3. Nausea and vomiting. Patient was then noted dry heaves, did offer to provide antiemetic, reports he does have some that this does not help. He attributes it to actual stressing, he does get dry heaves this is increased symptom of his anxiety. He does use Lorazepam about 1-2 if he is stressed otherwise he tends to avoid it. He does report when he went to get his Social Security appointment he [place] and just [place] through most of the appointment. 4. Constipation. Patient has been intermittently using milk of mag, did write a prescription for senna 2 tabs twice daily requested he use this versus a milk of mag secondary to needing a steady bowel program with opioid use. 5. Muscle weakness, multifactorial in origin. He is had some recent falls, has had home PT, is to start outpatient follow-up at [facility]. He is looking forward to this. 6. Advanced care planning. Is currently distressed regarding long-term planning, will reach out to Lorin see if she is still working with him, patient is going to need some assistance for navigating housing as well as a long-term plan. 7. Medication adherence. Patient unable to read bottles. He does have his pain pills placed accordingly so where he can find them and accepts them. His sister does help him with his medications once a day, as she reads the bottles and he tells how much, we did discuss in the context of his symptom management medications for the Lorazepam as well as the opioids to have one prescriber of writing for this, he is in agreement with this. We also discussed the time limits, he would like to have them more instinct there is about a week's difference between his 2 opioid prescriptions, we will continue to evaluate this as we move forward. Time Spent: 60 minutes with greater than 50% of this done in counseling coordination of care , evaluation of patient is home setting for medication adherence, as well as anticipatory guidance and counseling regarding safe opioid use
== END 2017-08-10 14:18 | disposition home or self-care (01) ==
LOC: PC 14:17
PROVIDERS: ATTEND Nurse Practitioner Adult Health
DX: Z51.5 Encounter for palliative care (principal); M54.9 Dorsalgia, unspecified; G89.29 Other chronic pain; C34.90 Malignant neoplasm of unspecified part of unspecified bronchus or lung; C79.31 Secondary malignant neoplasm of brain; K59.03 Drug induced constipation; T40.605D Adverse effect of unspecified narcotics, subsequent encounter; R11.2 Nausea with vomiting, unspecified; M62.81 Muscle weakness (generalized); R53.83 Other fatigue; G62.9 Polyneuropathy, unspecified; R63.0 Anorexia; R42 Dizziness and giddiness; R26.9 Unspecified abnormalities of gait and mobility; R47.81 Slurred speech; R41.0 Disorientation, unspecified; F41.9 Anxiety disorder, unspecified; F32.9 Major depressive disorder, single episode, unspecified; H54.7 Unspecified visual loss; H91.90 Unspecified hearing loss, unspecified ear; Z79.51 Long term (current) use of inhaled steroids; Z79.891 Long term (current) use of opiate analgesic; Z79.899 Other long term (current) drug therapy
CPT/HCPCS: 99350

== ENCOUNTER 2017-08-20 11:59 | Outpatient (CLI) | payer MEDICAID | END 2017-08-20 12:00 | disposition critical access hospital (66) | LOC: EMS 11:59 | PROVIDERS: ATTEND Surgery | DX: R55 Syncope and collapse (principal) | CPT/HCPCS: A0425; A0429 ==

== ENCOUNTER 2017-08-20 12:21 | Observation (INO) | payer MEDICAID ==
[2017-08-20 13:07] LABS: BASOPHILS # (AUTO) 0.1 10^3/uL (0.0-0.1); BASOPHILS % (AUTO) 1.1 %; EOSINOPHILS # (AUTO) 0.2 10^3/uL (0.0-0.7); EOSINOPHILS % (AUTO) 4.4 %; HGB - HEMOGLOBIN 11.3 g/dL (14.0-18.0); MEAN CORPUSCULAR HEMOGLOBIN 30.3 pg (27.0-31.0); MEAN CORPUSCULAR HGB CONC 34.7 g/dL (32.0-36.0); MEAN CORPUSCULAR VOLUME 87.4 fL (80.0-94.0); MEAN PLATELET VOLUME 6.8 fL (7.4-11.4); MONOCYTES # (AUTO) 0.5 10^3/uL (0.0-1.0); MONOCYTES % (AUTO) 9.8 %; NEUTROPHILS # (AUTO) 3.1 10^3/uL (1.5-6.6); NEUTROPHILS % (AUTO) 64.7 %; PLT - PLATELET COUNT 145 10^3/uL (130-450); RED BLOOD COUNT 3.72 10^6/uL (4.70-6.10); RED CELL DISTRIBUTION WIDTH 17.9 % (12.0-15.0); WHITE BLOOD COUNT 4.8 x10^3/uL (4.8-10.8)
[2017-08-20 13:24] LABS: ALBUMIN 3.1 g/dL (3.2-5.5); ALBUMIN/GLOBULIN RATIO 0.9 (1.0-2.2); BILIRUBIN,TOTAL 0.6 mg/dL (0.2-1.0); CALCIUM 8.1 mg/dL (8.5-10.3); TOTAL PROTEIN 6.4 g/dL (6.7-8.2)
[2017-08-20] MEDS ORDERED: POTASSIUM BICARB 25 MEQ TABLET PO STA (13:47)
--- NOTE | 2017-08-20 14:25 | ED Physician Documentation ---
PD HPI SYNCOPE - Stated complaint Stated Complaint: Syncope - Chief complaint Chief Complaint: Neuro - History obtained from History obtained from: Patient - History of Present Illness Witnessed: Unwitnessed Timing - onset: Last night (he has had increasing weakness for past several days to a week, and last night going to bathroom from bed, he fell, feeling too weak to get there. called neighber to come and help lift him off the floor and back to bed. Patient was unable to get out of bed this morning, with geeneral weakness.) Preceding symptoms: Nausea / vomiting (has had several days of nausea without vomiting nor diarrhea, but poor appetite and oral intake.), Generalized weakness. No: Headache, Abdominal pain, Light headed Associated symptoms: Nausea / vomiting. No: Incontinant of urine, Headache, Chest pain, Palpitations, Dyspnea, Abdominal pain Contributing factors: Decreased PO intake (for several days). No: Recent med change Injury occurred: Fell, Neck injury (did strike his head and is having some back of head pain. Feeling some pain in his neck after the fall as well.). No: Head injury Similar symptoms before: Has not had sx before Recently seen: Not recently seen Review of Systems Unable to obtain: Confused, Other (info from family as well) Constitutional: reports: Myalgias. denies: Fever, Chills Eyes: denies: Loss of vision, Decreased vision Nose: denies: Rhinorrhea / runny nose, Congestion Throat: denies: Sore throat Cardiac: denies: Chest pain / pressure, Palpitations Respiratory: reports: Dyspnea. denies: Cough GI: reports: Nausea. denies: Abdominal Pain, Vomiting, Diarrhea : denies: Dysuria, Frequency Skin: denies: Abrasion (s), Laceration (s) Musculoskeletal: reports: Back pain. denies: Neck pain Neurologic: reports: Generalized weakness, Confused, Altered mental status. denies: Focal weakness, Numbness, Headache, Head injury Psychiatric: denies: Suicidal Endocrine: denies: Weight loss, Easy bruising / bleeding Immunocompromised: denies: Immunocompromised PD PAST MEDICAL HISTORY - Past Medical History Cardiovascular: Congestive heart failure, Hypertension, Coronary artery disease , Peripheral Vascular Disease Respiratory: COPD, Shortness of breath, Other Neuro: Peripheral neuropathy Endocrine/Autoimmune: None, Other GI: GERD, Chronic constipation, Diverticulitis : Benign prostate hypertrophy Psych: Anxiety Musculoskeletal: Chronic back pain, Other Derm: None Other Past Medical History: 2 brain tumors removed. - Past Surgical History Past Surgical History: Yes Ortho: Amputation Cardiovascular: Cardiac catheterization - Present Medications Home Medications: Ambulatory Orders Medication Instructions Recorded Confirmed Albuterol [Ventolin Hfa] 2 puffs INH Q4H PRN 11/11/14 08/08/17 Lorazepam [Ativan] 1 mg PO Q8HR PRN 09/23/15 08/20/17 Tamsulosin [Flomax] 0.4 mg PO QPM 06/29/16 08/20/17 Esomeprazole Magnesium [Nexium 20 mg PO DAILY 08/10/16 08/08/17 24Hr] Oxycodone HCl [Oxycontin] 20 mg PO BID 07/04/17 08/20/17 Torsemide 20 mg PO BID 07/04/17 08/08/17 Magnesium Oxide [Mag Ox] 400 mg PO DAILY 07/26/17 08/08/17 Oxycodone HCl 10 mg PO Q4HR PRN MDD 6 tabs 07/26/17 08/20/17 Potassium Chloride 20 meq PO BID 07/26/17 08/08/17 Vitamin B Complex 1 tab PO DAILY 07/26/17 08/08/17 levETIRAcetam [Levetiracetam] 500 mg PO BID 07/26/17 08/08/17 Sennosides [Senna Lax] 2 tab PO BID 08/10/17 08/20/17 Lidocaine Ointment 5% [Xylocaine 1 appful TOP PRN PRN 08/20/17 08/20/17 Ointment 5%] - Allergies Allergies/Adverse Reactions: Allergies Allergy/AdvReac Type Severity Reaction Status Date / Time BRONWYN Inhibitors Allergy Emesis Verified 08/20/17 12:32 lisinopril Allergy "THROAT Verified 08/20/17 12:32 SWELLING" - Social History Does the pt smoke?: Yes Smoking Status: Current every day smoker Does the pt drink ETOH?: Yes Does the pt have substance abuse?: No - Immunizations Immunizations are current?: Yes - POLST Patient has POLST: No PD ED PE NORMAL - Vitals Vital signs reviewed: Yes - General General: No acute distress, Well developed/nourished, Other (somewhat sleepy but rousable. Moderately unkempt walker. ) - HEENT HEENT: Moist mucous membranes, Pharynx benign, Other (contusion with some local swelling left frontal area. ) - Neck Neck: Supple, no meningeal sign, No adenopathy, Other (mid to lower neck with some mid to side tenderness. ) - Respiratory Respiratory: No respiratory distress, Clear bilaterally - Abdomen Abdomen: Normal bowel sounds, Soft, Non tender, Non distended, No organomegaly - Back Back: No CVA TTP - Derm Derm: Normal color, Warm and dry - Extremities Extremities: No deformity, No tenderness to palpate - Neuro Neuro: Alert and oriented X 3, No motor deficit, Normal speech Eye Opening: To Voice Motor: Obeys Commands Verbal: Confused GCS Score: 13 - Psych Psych: No: Normal affect (somewhat flat) Results - Vitals Vitals: Vital Signs - 24 hr 08/20/17 08/20/17 12:26 16:03 Temperature 36.6 C Heart Rate 85 83 Respiratory 12 16 Rate Blood Pressure 98/69 132/89 H O2 Saturation 92 95 Oxygen O2 Source Room air - Labs Labs: Laboratory Tests 08/20/17 08/20/17 08/20/17 12:59 12:59 12:59 WBC 4.8 RBC 3.72 L Hgb 11.3 L Hct 32.5 L MCV 87.4 MCH 30.3 MCHC 34.7 RDW 17.9 H Plt Count 145 MPV 6.8 L Neut # 3.1 Lymph # 1.0 L [place] # 0.5 Eos # 0.2 Baso # 0.1 Absolute Nucleated RBC 0.00 Nucleated RBC % 0.0 Sodium 135 Potassium 2.3 L* Chloride 91 L Carbon Dioxide 29 Anion Gap 15.0 H BUN 7 Creatinine 1.0 Estimated GFR (MDRD) 78 L Glucose 97 Lactic Acid Calcium 8.1 L Magnesium 1.6 L Total Bilirubin 0.6 AST 54 H ALT 16 Alkaline Phosphatase 107 Total Protein 6.4 L Albumin 3.1 L Globulin 3.3 Albumin/Globulin Ratio 0.9 L Lipase 43 Urine Color Urine Clarity Urine pH Ur Specific [place] Urine Protein Urine Glucose (UA) Urine Ketones Urine Occult Blood Urine Nitrite Urine Bilirubin Urine Urobilinogen Ur Leukocyte Esterase Ur Microscopic Review Urine Culture Comments 08/20/17 08/20/17 13:37 15:50 WBC RBC Hgb Hct MCV MCH MCHC RDW Plt Count MPV Neut # Lymph # [place] # Eos # Baso # Absolute Nucleated RBC Nucleated RBC % Sodium Potassium Chloride Carbon Dioxide Anion Gap BUN Creatinine Estimated GFR (MDRD) Glucose Lactic Acid 2.2 Calcium Magnesium Total Bilirubin AST ALT Alkaline Phosphatase Total Protein Albumin Globulin Albumin/Globulin Ratio Lipase Urine Color YELLOW Urine Clarity CLEAR Urine pH 6.0 Ur Specific [place] 1.010 Urine Protein NEGATIVE Urine Glucose (UA) NEGATIVE Urine Ketones NEGATIVE Urine Occult Blood NEGATIVE Urine Nitrite NEGATIVE Urine Bilirubin NEGATIVE Urine Urobilinogen 0.2 (NORMAL) Ur Leukocyte Esterase NEGATIVE Ur Microscopic Review NOT INDICATED Urine Culture Comments NOT INDICATED - Rads (name of study) head and neck CT Radiology: Prelim report reviewed (no fractures, no acute bleeding) neck CT Radiology: Prelim report reviewed (no fractures) PD MEDICAL DECISION MAKING - ED course Complexity details: reviewed results, considered differential (General weakness and apparent dehydration with poor intake recently. Not clear the cause of this. He does not have any obvious sepsis or focal infections. He has not had any vomiting. He states he has some regular diarrhea. He did have a syncopal episode today. He still has general weakness with difficulty getting up. His potassium is markedly low at 2.3. He is given IV fluids as well as oral and IV potassium supplements. I do not see getting his level up adequately in the ER timeframe and also the issue of maintaining hydration given the current nausea and less intake. His syncope seems likely postural hypotension as opposed to cardiovascular per se. I talked with the hospitalist who will come and evaluate the patient for possible hospital treatment.), d/w patient Departure - Departure Disposition: ED Place in Observation Clinical Impression: Generalized weakness, Hypokalemia, Dehydration, Nausea Episode of syncope Qualifiers: Syncope type: unspecified Qualified Code(s): R55 - Syncope and collapse Condition: Stable Record reviewed to determine appropriate education?: Yes Discharge Date/Time: 08/20/17 18:20
[2017-08-20] MEDS ORDERED: SODIUM CHLORIDE 0.9% 1,000 ML IV ONE ×2 (14:50→16:35)
[2017-08-20] MEDS ORDERED: POTASSIUM CHLOR 10 MEQ/100 ML 10 MEQ/100 ML BAG IV ONE (14:51)
--- NOTE | 2017-08-20 16:03 | CT Preliminary Report ---
Exam: CT HEAD W/O IMPRESSION: No acute intracranial abnormality, specifically no intracranial hemorrhage, with similar findings of prior craniotomy and right posterior frontal lobe mass resection without evidence of comm on location. [facility] SITE ID: [id number]
--- NOTE | 2017-08-20 16:14 | CT Report ---
EXAM: CT HEAD EXAM DATE: 08/20/2017 03:37 PM. CLINICAL HISTORY: Fall and struck head. COMPARISON: CT head without contrast 08/02/2017.. TECHNIQUE: Multiaxial CT images were obtained from the foramen magnum to the vertex. Reformats: Coron al. IV contrast: None. In accordance with CT protocol optimization, one or more of the following dose reduction techniques w ere utilized for this exam: automated exposure control, adjustment of mA and/or KV based on patient s ize, or use of iterative reconstructive technique. FINDINGS: Parenchyma: No intracranial hemorrhage. No mass effect, midline shift or evidence of a mass. No evide nce of interval infarct. As before, the patient is post resection of posterior right frontal lobe mas s with patchy cerebral white matter hypodensity similar to prior exam, predominating in the region of resection, possibly posttreatment changes or chronic microvascular ischemic changes. Similar punctat e focus of hyperdensity within the resection bed, possibly calcification (09/14). Extraaxial Spaces: Normal for age. No subdural or epidural collections identified. Similar subcentime ter focus of hyperdensity immediately deep to the craniotomy, likely posttreatment change or calcific ation (09/16). Ventricles: Normal in size and position. Sinuses and Orbits: Partially visualized minimal mucosal thickening in the right maxillary sinus with out air-fluid level. Otherwise, the imaged paranasal sinuses, orbits, and mastoids show no significan t abnormality. Bones: No evidence of fracture or suspicious lesion. Post right craniotomy as before. Other: Mild intracranial calcific atherosclerosis as before. IMPRESSION: No acute intracranial abnormality, specifically no intracranial hemorrhage, with similar findings of prior craniotomy and right posterior frontal lobe mass resection without evidence of comp lication. [facility] Referring Provider Line: [phone] SITE ID: [id number]
[2017-08-20 16:17] LABS: BILIRUBIN,URINE NEGATIVE (NEGATIVE); GLUCOSE, URINE (UA) NEGATIVE (NEGATIVE); KETONES,URINE (UA) NEGATIVE (NEGATIVE); LEUKOCYTE ESTERASE, URINE NEGATIVE (NEGATIVE); NITRITE,URINE NEGATIVE (NEGATIVE); OCCULT BLOOD,URINE NEGATIVE (NEGATIVE); PROTEIN,URINE NEGATIVE (NEGATIVE); UROBILINOGEN,URINE 0.2 (NORMAL) E.U./dL (NORMAL)
[2017-08-20 16:19] LABS: CLARITY,URINE CLEAR (CLEAR)
--- NOTE | 2017-08-20 16:21 | CT Preliminary Report ---
Exam: CT CERVICAL SPINE W/O IMPRESSION: 1. No acute osseous abnormality or malalignment of the cervical spine with mild degenerative changes at C5-C6. 2. Emphysema. [facility] SITE ID: [id number]
--- NOTE | 2017-08-20 16:26 | CT Report ---
EXAM: CT CERVICAL SPINE WITHOUT CONTRAST DATE: 08/20/2017 03:50 PM. HISTORY: Fall and struck head, neck pain. COMPARISONS: CT soft tissue neck with contrast 03/12/2017. Cervical spine radiographs 04/26/2017. TECHNIQUE: Thin-section axial images were acquired of the cervical spine without contrast. Post-proce ssing: Coronal and sagittal reformats. Other: None. In accordance with CT protocol optimization, one or more of the following dose reduction techniques w ere utilized for this exam: automated exposure control, adjustment of mA and/or KV based on patient s ize, or use of iterative reconstructive technique. FINDINGS: Alignment: No scoliosis or spondylolisthesis. Bones: No fracture or bone lesion. Similar minimal superior endplate deformity of T1 with small Schmo rl's node. Interspace Levels/Facets: Minimal degenerative change at the atlantodental joint. No significant degenerative facet. Mild disk height loss at C5-C6 with bilateral uncovertebral spurring at this level causing mild bilateral neura l foraminal narrowing. Musculature: Normal. No fatty atrophy. Other: The paravertebral and prevertebral soft tissues are unremarkable. Mild centrilobular and moder ate to marked paraseptal emphysema with right upper lobe blebs/bullae. IMPRESSION: 1. No acute osseous abnormality or malalignment of the cervical spine with mild degenerative changes at C5-C6. 2. Emphysema. [facility] Referring Provider Line: [phone] SITE ID: [id number]
[2017-08-20] MEDS ORDERED: SODIUM CHLORIDE FLUSH 0.9% 10 ML SYRINGE IVP PRN (17:38)
[2017-08-20] MEDS ORDERED: HYDROmorphone 1 MG/ML SYRINGE IVP STA (17:46)
--- NOTE | 2017-08-20 19:16 | HISTORY & PHYSICAL EXAMINATION ---
Chief Complaint - Chief Complaint Chief Complaint: syncope and collapse History of Present Illness - Admitted From Admitted From:: ED - History Obtained From Records Reviewed: yes History obtained from: chart review, patient, patient's daughter Exam Limitations: none - History of Present Illness HPI Comment/Other: Pal Wise III is an ill appearing 57-year old white male with a past medical history of shortness of breath, COPD, tobacco dependence, alcohol dependence, CHF, hypertension, CAD, peripheral vascular disease, chronic BLE edema, peripheral neuropathy, GERD, chronic constipation, diverticulitis, BPH, urinary incontinence, anxiety, chronic back pain, brain tumor removal 01/2017, and recent lung mass with radiation. The patient fell at home around 11:30am today while ambulating to the bathroom. His sister, Savana heard the fall and called EMS. He claims that he frequently falls ~a few times per week, due to weakness in his legs and this usually happens as he is trying to get to the bathroom. He states that his vision has become severely impaired and can no longer see his cell phone or read. His vision loss has been progressively worse since at least May 2017, and he has been missing his ophthalmology appointments. His daughter, Miya was in the room for the admission exam and states that her father does not have help at home since his sister Savana is consumed with raising her 3 teenage sons. Once the patient got to the ED he was found to have moderate hypokalemia with a potassium of 2.3, a low magnesium of 1.6. He will be admitted for electrolyte replacement using IVFs, in observation status. History - Past Medical History Cardiovascular: reports: Congestive heart failure, Hypertension, Coronary artery disease, Peripheral Vascular Disease Respiratory: reports: COPD, Shortness of breath, Other (recent lung mass-sees Dr. [facility].) Neuro: reports: Headache/migraine, Peripheral neuropathy, Other (brain tumor removal 01/2017.) Endocrine/Autoimmune: reports: None GI: reports: GERD, Chronic constipation, Diverticulitis : reports: Benign prostate hypertrophy, Incontinence, Nocturia, Frequency HEENT: reports: Chronic vision loss Psych: reports: Anxiety Musculoskeletal: reports: Chronic back pain, Other Derm: reports: None MRSA Hx?: No - Past Surgical History Ortho: reports: Amputation Cardiovascular: reports: Cardiac catheterization - Family & Social History Family History: Mother: , Cancer, Diabetes, Type 2, Father: , Cancer, Sister: Alive and Well, Cancer, Other family: Alive and Well Living arrangement: At home Living Situation: With family - Substance History Use: Uses substance without health or social issues: Tobacco, Alcohol Use Issues: Anxiety Disorder Abuse: Recurrent use of substance despite neg consequences: Alcohol Abuse Issues: Anxiety Disorder Dependence: Experiences withdrawal or developed tolerances: Tobacco, Alcohol Dependence Issues: Anxiety Disorder Tobacco Details: Cigarettes - POLST Patient has POLST: No POLST Status: Full Code Meds/Allgy - Home Medications Home Medications: Ambulatory Orders Medication Instructions Recorded Confirmed Albuterol [Ventolin Hfa] 2 puffs INH Q4H PRN 11/11/14 08/30/17 Lorazepam [Ativan] 1 mg PO Q8HR PRN 09/23/15 08/30/17 Tamsulosin [Flomax] 0.4 mg PO QPM 06/29/16 08/30/17 Esomeprazole Magnesium [Nexium 20 mg PO DAILY 08/10/16 08/30/17 24Hr] Oxycodone HCl [Oxycontin] 20 mg PO BID 07/04/17 08/30/17 Torsemide 20 mg PO BID 07/04/17 08/30/17 Oxycodone HCl 10 mg PO Q4HR PRN MDD 8 tabs 07/26/17 08/30/17 Vitamin B Complex 1 tab PO DAILY 07/26/17 08/30/17 levETIRAcetam [Levetiracetam] 500 mg PO BID 07/26/17 08/30/17 Sennosides [Senna Lax] 2 tab PO BID 08/10/17 08/30/17 Lidocaine Ointment 5% [Xylocaine 1 appful TOP PRN PRN 08/20/17 08/30/17 Ointment 5%] Amlodipine Besylate [Amlodipine 10 mg PO DAILY 08/21/17 08/30/17 Besylate] Melatonin 1 tab PO DAILY PM 08/29/17 08/30/17 Magnesium Oxide [Magnesium] 400 mg PO BID 08/30/17 08/30/17 Potassium Chloride [K-Dur] 40 meq PO BID 08/30/17 08/30/17 - Allergies Allergies/Adverse Reactions: Allergies Allergy/AdvReac Type Severity Reaction Status Date / Time BRONWYN Inhibitors Allergy Emesis Verified 08/20/17 12:32 lisinopril Allergy "THROAT Verified 08/20/17 12:32 SWELLING" Review of Systems - Constitutional Constitutional: reports: Fatigue, Weakness - Eyes Eyes: reports: Blurred vision, Vision loss - Ears, Nose & Throat Ears, Nose & Throat: reports: Hearing loss - Cardiovascular Cariovascular: reports: Decr. exercise tolerance - Respiratory Respiratory: reports: Cough, Orthopnea, SOB with exertion - Gastrointestinal Gastrointestinal: reports: Reflux/heartburn, Poor appetite - Genitourinary Genitourinary: reports: Dysuria, Frequency, Incontinence, Nocturia - Musculoskeletal Musculoskeletal: reports: Back pain - Integumentary Integumentary: reports: Dryness - Neurological Neurological: reports: General weakness, Headache, Pre-existing deficit, Abnormal gait, Incoordination - Psychiatric Psychiatric: reports: Depression, Anxiety - All Other Systems All Other Systems: reports: Reviewed and negative Exam - Vital Signs Reviewed Vital Signs: Yes - Physical Exam General Appearance: positive: Alert, Moderate distress, Anxious Eyes Bilateral: positive: Normal inspection ENT: positive: ENT inspection nml, Pharynx nml, Dry mucous membranes Neck: positive: Nml inspection, Thyroid nml, No JVD Respiratory: positive: Chest non-tender, No respiratory distress, Wheezes, Other (crackles) Cardiovascular: positive: No gallop, Irregularly irregular, Systolic murmur, Decreased pulse(s) Peripheral Pulses: positive: 1+ Abdomen: positive: Non-tender, No organomegaly, Nml bowel sounds Back: positive: Nml inspection Skin: positive: No rash, Warm, Dry, Pallor Extremities: positive: Pedal edema, Joint swelling Neurologic/Psychiatric: positive: Oriented x3, CN's nml (2-12), Motor nml, Sensation nml, Weakness, Depressed mood/affect Reflexes: Bicep (R): 3+, Bicep (L): 3+ Conclusion/Plan - Problem List (1) Episode of syncope Conclusion/Plan: Patient presents to ED after a fall in which the neighbor came into the home to assist with transport back to bed. He admits to recent diarrhea that has made him more weak due to frequency. Plan: Check orthostatic vital signs, telemetry monitoring, replace electrolytes , complete neuro checks, and manage diarrhea. Qualifiers: Syncope type: unspecified Qualified Code(s): R55 - Syncope and collapse (2) Hypokalemia Conclusion/Plan: Potassium was reduced at 2.3 at the time of admission. Plan: Replace using PO and IV forms. Re-check labs in the AM. (3) Tobacco use disorder, continuous Conclusion/Plan: Patient admits to being "a life long smoker". He continues to use tobacco despite negative consequences such as SOB, cough and COPD exacerbations. Plan: Offer nicotine patch and encourage cessation. (4) Diarrhea Conclusion/Plan: Patient complains of cyclical diarrhea that his not new. He believes it has to do with "what he ate". He denies skin break down, but continues with mild diffuse abdominal discomfort. Plan: Give antiemetics, high fiber diet and manage electrolyte imbalance. Qualifiers: Diarrhea type: unspecified type Qualified Code(s): R19.7 - Diarrhea, unspecified - Lab Results Lab results reviewed: Yes Fish Bones: 08/21/17 05:55 08/21/17 14:43 - EKG Results EKG Interpreted Independently: Yes Core Measures - Anticipated LOS I expect patient to be DC'd or transferred within 96 hours.: Yes - DVT/VTE - Prophylaxis VTE/DVT Device ordered at admit?: Yes VTE/DVT Prophylaxis med ordered at admit?: Yes - Stroke - Rehab Assessment Rehab services assessment to be ordered?: Yes - AMI - Statin at Admit Aspirin Prescribed on Admit: Yes
[2017-08-20] MEDS: NS W/20 MEQ KCL 1,000 ML IV SCH (19:21)
[2017-08-20] MEDS ORDERED: POTASSIUM CHLORIDE 20 MEQ/15 ML UDC PO SCH (19:47)
[2017-08-20] MEDS: oxyCODONE ER 10 MG TABLET PO SCH (20:34)
[2017-08-20] MEDS: MAGNESIUM OXIDE 400 MG TABLET PO SCH (20:34)
[2017-08-20] MEDS ORDERED: TAMSULOSIN 0.4 MG CAPSULE PO SCH (21:00)
[2017-08-20] MEDS: FLUOCINONIDE 0.05% CREAM 15 GM TUBE TOP SCH ×2 (21:18→22:03)
[2017-08-20] MEDS: SENNA 8.6 MG TABLET PO SCH (22:22)
[2017-08-20] MEDS ORDERED: ALBUTEROL NEB 2.5 MG/3 ML INH PRN (22:36)
[2017-08-20] MEDS: SODIUM CHLORIDE FLUSH 0.9% 10 ML SYRINGE IVP SCH (23:29)
--- NOTE | 2017-08-21 01:52 | XRAY Report ---
EXAM: CHEST RADIOGRAPHY EXAM DATE: 08/20/2017 11:00 PM. CLINICAL HISTORY: Cough, aspiration?. COMPARISON: 08/02/2017 chest x-ray. TECHNIQUE: 1 view. FINDINGS: Lungs/Pleura: Again seen is an irregular linear right perihilar density related to known lung cancer. There is no evidence of acute airspace consolidation. Emphysematous changes again noted. Mediastinum: Within exam limitations, the cardiomediastinal contour is normal. Other: None. IMPRESSION: 1. No evidence of acute airspace disease. 2. Emphysema and right perihilar opacity related to known lung cancer or posttreatment changes. [facility] Referring Provider Line: [phone] SITE ID: [id number]
[2017-08-21] MEDS: NS W/20 MEQ KCL 1,000 ML IV SCH (04:59)
[2017-08-21 06:07] LABS: EOSINOPHILS # (AUTO) 0.1 10^3/uL (0.0-0.7); EOSINOPHILS % (AUTO) 2.9 %; HGB - HEMOGLOBIN 10.6 g/dL (14.0-18.0); LYMPHOCYTES # (AUTO) 0.8 10^3/uL (1.5-3.5); LYMPHOCYTES % (AUTO) 19.5 %; MEAN CORPUSCULAR HEMOGLOBIN 29.4 pg (27.0-31.0); MEAN CORPUSCULAR HGB CONC 33.1 g/dL (32.0-36.0); MEAN CORPUSCULAR VOLUME 88.8 fL (80.0-94.0); MEAN PLATELET VOLUME 7.3 fL (7.4-11.4); MONOCYTES # (AUTO) 0.4 10^3/uL (0.0-1.0); NEUTROPHILS # (AUTO) 2.8 10^3/uL (1.5-6.6); NEUTROPHILS % (AUTO) 66.6 %; PLT - PLATELET COUNT 125 10^3/uL (130-450); RED BLOOD COUNT 3.59 10^6/uL (4.70-6.10); RED CELL DISTRIBUTION WIDTH 17.9 % (12.0-15.0); WHITE BLOOD COUNT 4.2 x10^3/uL (4.8-10.8)
[2017-08-21 06:13] LABS: CALCIUM 7.9 mg/dL (8.5-10.3); CREATININE 0.8 mg/dL (0.6-1.2)
[2017-08-21] MEDS: SENNA 8.6 MG TABLET PO SCH (08:10)
[2017-08-21] MEDS: SODIUM CHLORIDE FLUSH 0.9% 10 ML SYRINGE IVP SCH ×2 (08:12→17:08)
[2017-08-21] MEDS: oxyCODONE ER 10 MG TABLET PO SCH (08:59)
[2017-08-21] MEDS: MAGNESIUM OXIDE 400 MG TABLET PO SCH (09:00)
[2017-08-21] MEDS ORDERED: POLYETHYLENE GLYCOL 3350 17 GM PACKET PO SCH (09:00)
[2017-08-21] MEDS: FLUOCINONIDE 0.05% CREAM 15 GM TUBE TOP SCH (09:04)
[2017-08-21] MEDS ORDERED: POTASSIUM CHLORIDE INJ 40 MEQ in SODIUM CHLORIDE 0.9% 480 ML IV ONE (10:52)
[2017-08-21] MEDS ORDERED: oxyCODONE 5 MG TABLET PO PRN (10:56)
--- NOTE | 2017-08-21 10:59 | Discharge Plan ---
Discharge Plan Disposition: 01 Home, Self Care Condition: Good Diet: Cardiac Activity Restrictions: No Restrictions Shower Restrictions: No Driving Restrictions: Yes Weight Bearing: Full Weight Additional Instructions or Follow Up instructions: You were admitted for a low potassium and after a fall. Imaging of your brain showed no bleeding. You were watched over night on telemetry. You likely had low potassium due to diarrhea. You were given potassium and a medication to slow down your bowels. You have a little more potassium to take, you will have another lab draw around 2pm today and if your potassium is improved, you may go home. Please see your PCP within a week. No Smoking: If you smoke, Please STOP! Call for help. Follow-up with: Yessica Patel ARNP [Primary Care Provider] -
[2017-08-21] MEDS: DIPHENOX/ATROPINE 2.5/0.025 MG TABLET PO SCH ×3 (11:14→17:08)
[2017-08-21 12:56] VITALS: BP 152/87
[2017-08-21] MEDS ORDERED: TORSEMIDE 20 MG TABLET PO SCH (13:45)
--- NOTE | 2017-08-21 15:19 | DISCHARGE SUMMARY ---
Discharge Summary Admit Date: 08/20/17 Discharge Date: 08/21/17 Discharging Provider: RAMAN Henriquez Primary Care Provider: Yessica Patel Code Status: Attempt Resuscitation Condition at Discharge: Good Discharge Disposition: 01 Home, Self Care - DIAGNOSES Admission Diagnoses: Syncope and collapse (R55) Hypokalemia (E87.6) Alcohol dependence (F10.20) Tobacco abuse (Z72.0) Lung malignancy (C34.90) Discharge Diagnoses with Status of Each Condition: Syncope and collapse (R55) Hypokalemia (E87.6) Alcohol dependence (F10.20) Tobacco abuse (Z72.0) Lung malignancy (C34.90) - HPI History of Present Illness: Pal Wise III is an ill appearing 57-year old white male with a past medical history of shortness of breath, COPD, tobacco dependence, alcohol dependence, CHF, hypertension, CAD, peripheral vascular disease, chronic BLE edema, peripheral neuropathy, GERD, chronic constipation, diverticulitis, BPH, urinary incontinence, anxiety, chronic back pain, brain tumor removal 01/2017, and recent lung mass with radiation. The patient fell at home around 11:30am today while ambulating to the bathroom. His sister, Savana heard the fall and called EMS. He claims that he frequently falls ~a few times per week, due to weakness in his legs and this usually happens as he is trying to get to the bathroom. He states that his vision has become severely impaired and can no longer see his cell phone or read. His vision loss has been progressively worse since at least May 2017, and he has been missing his ophthalmology appointments. His daughter, Miya was in the room for the admission exam and states that her father does not have help at home since his sister Savana is consumed with raising her 3 teenage sons. Once the patient got to the ED he was found to have moderate hypokalemia with a potassium of 2.3, a low magnesium of 1.6. He will be admitted for electrolyte replacement using IVFs, in observation status. - HOSPITAL COURSE Hospital Course: Patient had an uneventful observation stay; Electrolytes were replaced, diarrhea was managed, PT evaluated and patient was found to be back to base line. Palliative care- Kari Thornton made a visit. Patient was in stable condition at the time of discharge and was transported via private car home with sister. - ALLERGIES Allergies/Adverse Reactions: Allergies Allergy/AdvReac Type Severity Reaction Status Date / Time BRONWYN Inhibitors Allergy Emesis Verified 08/20/17 12:32 lisinopril Allergy "THROAT Verified 08/20/17 12:32 SWELLING" - MEDICATIONS Home Medications: Ambulatory Orders Medication Instructions Recorded Confirmed Albuterol [Ventolin Hfa] 2 puffs INH Q4H PRN 11/11/14 08/30/17 Lorazepam [Ativan] 1 mg PO Q8HR PRN 09/23/15 08/30/17 Tamsulosin [Flomax] 0.4 mg PO QPM 06/29/16 08/30/17 Esomeprazole Magnesium [Nexium 20 mg PO DAILY 08/10/16 08/30/17 24Hr] Oxycodone HCl [Oxycontin] 20 mg PO BID 07/04/17 08/30/17 Torsemide 20 mg PO BID 07/04/17 08/30/17 Oxycodone HCl 10 mg PO Q4HR PRN MDD 8 tabs 07/26/17 08/30/17 Vitamin B Complex 1 tab PO DAILY 07/26/17 08/30/17 levETIRAcetam [Levetiracetam] 500 mg PO BID 07/26/17 08/30/17 Sennosides [Senna Lax] 2 tab PO BID 08/10/17 08/30/17 Lidocaine Ointment 5% [Xylocaine 1 appful TOP PRN PRN 08/20/17 08/30/17 Ointment 5%] Amlodipine Besylate [Amlodipine 10 mg PO DAILY 08/21/17 08/30/17 Besylate] Melatonin 1 tab PO DAILY PM 08/29/17 08/30/17 Magnesium Oxide [Magnesium] 400 mg PO BID 08/30/17 08/30/17 Potassium Chloride [K-Dur] 40 meq PO BID 08/30/17 08/30/17 - PHYSICAL EXAM AT DISCHARGE General Appearance: positive: No acute distress, Alert Eyes Bilateral: positive: Normal inspection, PERRL ENT: positive: ENT inspection nml, Pharynx nml, Dry mucous membranes Neck: positive: Nml inspection, Thyroid nml, No JVD, Stiff neck Respiratory: positive: Chest non-tender, No respiratory distress, Other ( crackles in low bases.) Cardiovascular: positive: No gallop, Irregularly irregular, Systolic murmur, Decreased pulse(s) Peripheral Pulses: positive: 1+ Abdomen: positive: Tenderness, Guarding, Hepatomegaly, Abnml bowel sounds ( hyperactive) Back: positive: Nml inspection Skin: positive: No rash, Warm, Dry Extremities: positive: Non-tender, Full ROM, Nml appearance, Pedal edema ( chronic dependent edema), Joint swelling Neurologic/Psychiatric: positive: Oriented x3, Weakness, Sensory loss, Depressed mood/affect Reflexes: Bicep (R): 1+, Bicep (L): 1+ - LABS Result Diagrams: 08/21/17 05:55 08/21/17 14:43 - DIAGNOSTIC IMAGING Diagnostic Imaging Results: Final report reviewed Diagnostic Imaging Results Comments: EXAM: CHEST RADIOGRAPHY EXAM DATE: 08/20/2017 11:00 PM. CLINICAL HISTORY: Cough, aspiration?. COMPARISON: 08/02/2017 chest x-ray. TECHNIQUE: 1 view. FINDINGS: Lungs/Pleura: Again seen is an irregular linear right perihilar density related to known lung cancer. There is no evidence of acute airspace consolidation. Emphysematous changes again noted. Mediastinum: Within exam limitations, the cardiomediastinal contour is normal. IMPRESSION: 1. No evidence of acute airspace disease. 2. Emphysema and right perihilar opacity related to known lung cancer or posttreatment changes. - FOLLOW UP Follow Up: Disposition: 01 Home, Self Care Condition: Good Diet: Cardiac Activity Restrictions: No Restrictions Shower Restrictions: No Driving Restrictions: Yes Weight Bearing: Full Weight Additional Instructions or Follow Up instructions: You were admitted for a low potassium and after a fall. Imaging of your brain showed no bleeding. You were watched over night on telemetry. You likely had low potassium due to diarrhea. You were given potassium and a medication to slow down your bowels. You have a little more potassium to take, you will have another lab draw around 2pm today and if your potassium is improved, you may go home. Please see your PCP within a week. - TIME SPENT Time Spent in Discharge (Minutes): 40
[2017-08-21 15:20] LABS: CREATININE 0.8 mg/dL (0.6-1.2)
== END 2017-08-21 18:00 | disposition home or self-care (01) ==
LOC: EDUNIT# → ED 12:21 → OBS 17:38
PROVIDERS: ADMIT Nurse Practitioner; ATTEND Nurse Practitioner
DX: R55 Syncope and collapse (principal); E87.6 Hypokalemia; F10.280 Alcohol dependence with alcohol-induced anxiety disorder; F17.218 Nicotine dependence, cigarettes, with other nicotine-induced disorders; C34.90 Malignant neoplasm of unspecified part of unspecified bronchus or lung; E86.0 Dehydration; R11.0 Nausea; R19.7 Diarrhea, unspecified; S00.83XA Contusion of other part of head, initial encounter; M54.2 Cervicalgia; Y92.003 Bedroom of unspecified non-institutional (private) residence as the place of occurrence of the external cause; W19.XXXA Unspecified fall, initial encounter; H53.8 Other visual disturbances; I11.0 Hypertensive heart disease with heart failure; I50.9 Heart failure, unspecified; I25.10 Atherosclerotic heart disease of native coronary artery without angina pectoris; I73.9 Peripheral vascular disease, unspecified; J43.9 Emphysema, unspecified; K21.9 Gastro-esophageal reflux disease without esophagitis; G62.9 Polyneuropathy, unspecified; G89.29 Other chronic pain; N40.1 Benign prostatic hyperplasia with lower urinary tract symptoms; N39.498 Other specified urinary incontinence; Z79.891 Long term (current) use of opiate analgesic; Z92.3 Personal history of irradiation; Z91.81 History of falling
CPT/HCPCS: 36415; 51701; 70450; 71045; 72125; 80048; 80053; 81003; 83605; 83690; 83735; 85025; 87040; 93005; 96361; 96365; 96366; 96375; 97161; 99284; 99285; A9270; G0378; G8978; G8979; G8980; J1170; J3490; 81001; 87086

== ENCOUNTER 2017-08-29 15:39 | Outpatient (CLI) | payer MEDICAID ==
--- NOTE | 2017-08-30 09:01 | XRAY Report ---
TWO VIEW CHEST X-RAY: 08/29/2017 CLINICAL INDICATION: Thrombocytopenia, lung cancer. FINDINGS: Frontal and lateral views of the chest are compared to previous film of 08/20/2017. The cardiac silhouette is not enlarged. Right-sided parenchymal opacity and emphysema are stable. No effusion or pneumothorax is seen. IMPRESSION: NO SIGNIFICANT INTERVAL CHANGE AND RIGHT LUNG LESION AND EMPHYSEMA. TD: 08/30/2017 09:00
== END 2017-08-29 15:40 | disposition home or self-care (01) ==
LOC: DI 15:39
PROVIDERS: ATTEND Internal Medicine
DX: D69.6 Thrombocytopenia, unspecified (principal); C34.90 Malignant neoplasm of unspecified part of unspecified bronchus or lung; J43.9 Emphysema, unspecified
CPT/HCPCS: 71046

== ENCOUNTER 2017-08-30 20:04 | Outpatient (CLI) | payer MEDICAID ==
--- NOTE | 2017-08-30 21:44 | CONSULTATION NOTE ---
Palliative Care Follow Up - Referral Referring Provider: Dr. Castillo Time of Visit: [id number] Referral setting: Home Referral Reason: Lung Cancer with brain mets/pain of neoplastic origin - Information Sources Records reviewed: Previous records reviewed History/Review of Systems obtained from: Patient Exam limitations: Clinical condition - History of Present Illness Update Brief HPI Update: This is a feisty 52-year-old gentleman with adenocarcinoma of the lung, with known brain metastases with surgery done at [facility] in 02/2017. He is status post right parietal lobe resection, his brain metastases is being followed by MRI. His original stage IV adenocarcinoma was treated with radiation, is now on Pembrolizumab. He just completed his third cycle. He has had complications with diarrhea, musculoskeletal joint discomfort and flare, and severe fatigue. He presents today with a litany of complaints, he has now been severely hypokalemic twice, the first time resulting in hospitalization as he was not taking his potassium and having diarrhea, His potassium yesterday at clinic was 2.6, I suspect this is related to his torsemide use and not adequate supplementation.His daughter adriana whom I have not met, has set up his pill boxes, this is distressed him greatly today, as he has unable to see with his cataracts and is distrustful of what is in them. We are unable to locate a list , so med reconciliation is of concern today. Patient despite his short-term memory deficits and irritability, can usually recite the medications he is on, and today he is trying to clarify his potassium dosing. Patient does present with high symptom burden, including severe fatigue, intermittent confusion, high anxiety, depression though he feels this is improving, as well as significant pain.Today his lower extremity edema is actually fairly well controlled, reports he is feeling better after fluids and potassium yesterday, he continues quite distressed as he has awaiting the outcome of his SSI to be able to further pursue finding a place to live. Social History - Living Situation Living arrangement: Homeless, Other (living with sister on couch;) Living Situation: With family (He is currently living with his sister and her 3 teenagers, it is fairly chaotic household. He is living on the couch, his medications and pill bottles are in multiple bags and with his eyesight it is difficult for him to track most things.) Medications/Allergies - Medications Home Medications: Ambulatory Orders Medication Instructions Recorded Confirmed Albuterol [Ventolin Hfa] 2 puffs INH Q4H PRN 11/11/14 08/30/17 Lorazepam [Ativan] 1 mg PO Q8HR PRN 09/23/15 08/30/17 Tamsulosin [Flomax] 0.4 mg PO QPM 06/29/16 08/30/17 Esomeprazole Magnesium [Nexium 20 mg PO DAILY 08/10/16 08/30/17 24Hr] Oxycodone HCl [Oxycontin] 20 mg PO BID 07/04/17 08/30/17 Torsemide 20 mg PO BID 07/04/17 08/30/17 Oxycodone HCl 10 mg PO Q4HR PRN MDD 8 tabs 07/26/17 08/30/17 Vitamin B Complex 1 tab PO DAILY 07/26/17 08/30/17 levETIRAcetam [Levetiracetam] 500 mg PO BID 07/26/17 08/30/17 Sennosides [Senna Lax] 2 tab PO BID 08/10/17 08/30/17 Lidocaine Ointment 5% [Xylocaine 1 appful TOP PRN PRN 08/20/17 08/30/17 Ointment 5%] Amlodipine Besylate [Amlodipine 10 mg PO DAILY 08/21/17 08/30/17 Besylate] Melatonin 1 tab PO DAILY PM 08/29/17 08/30/17 Magnesium Oxide [Magnesium] 400 mg PO BID 08/30/17 08/30/17 Potassium Chloride [K-Dur] 40 meq PO BID 08/30/17 08/30/17 - Allergies Allergies/Adverse Reactions: Allergies Allergy/AdvReac Type Severity Reaction Status Date / Time BRONWYN Inhibitors Allergy Emesis Verified 08/20/17 12:32 lisinopril Allergy "THROAT Verified 08/20/17 12:32 SWELLING" Review of Systems - Constitutional Constitutional: reports: Fatigue. denies: Fever, Chills - Eyes Eyes: reports: Vision loss (had appointment with eye MD; has cataracts; vision changes severe) - Ears, Nose & Throat Ears, Nose & Throat: reports: Hearing loss, Other (poor dentition) - Cardiovascular Cardiovascular: reports: Chest pain (left rib pain), Edema, Lightheadedness, Decr. exercise tolerance - Respiratory Respiratory: reports: Cough, Sputum production, Wheezing, SOB at rest, SOB with exertion - Gastrointestinal Gastrointestinal: reports: Constipation, Poor appetite, Early satiety - Genitourinary Genitourinary: reports: Urgency - Musculoskeletal Musculoskeletal: reports: Muscle pain, Back pain, Muscle aches, Stiffness, Limited range of motion, Muscle weakness, Gout, Joint pain, Joint swelling, Assistive devices (uses walker) - Integumentary Integumentary: reports: Rash, Dryness, Other (venous stasis) - Neurological Neurological: reports: General weakness, Numbness, Memory problems, Abnormal gait - Psychiatric Psychiatric: reports: Depression, Anxiety - Hematologic/Lymphatic Hematologic/Lymphatic: reports: Anemia - All Other Systems All Other Systems: reports: Reviewed and negative Physical Exam - Vital Signs Temperature: 97.7 C Pulse Rate: 108 Respiratory Rate: 20 O2 Saturation: 94 (ra @ rest) Blood Pressure: 108/72 - Physical Exam General Appearance: positive: Mild distress, Anxious Eyes Bilateral: positive: Normal inspection ENT: positive: No signs of dehydration Neck: positive: Trachea midline Cardiovascular: positive: Regular rate & rhythm Respiratory: positive: Diminished in bases. negative: Wheezes, Rales, Rhonchi Abdomen: positive: Non-tender, Soft, Distended Skin: positive: Pallor, Other (lower legs wrapped; what able to examine is without blisters or openings) Extremities: positive: Pedal edema (1-2+ up to mid calf; is titrating toresimide according to swelling; takes daily adds second based on swelling; most days takes second one) Neurologic/Psychiatric: positive: Disoriented to time, Depressed mood/affect, Other (Patient cooperative and engaged in exam, he tends to be quite as per his definition "loquacious", is distracted and distressed with his daughter and her filling of the Mediset's,) Palliative Care - POLST Patient has POLST: No Pain: Pain worsening, Location (Patient reports several pain etiologies; patient has lower extremity sharp shooting pain from peripheral neuropathy, he has trialed gabapentin and disliked side effects, he also complains of left rib pain located in the rib cage radiating around to his back. Reports this occurred after a fall several weeks ago. This is not improved much. He also reports an exacerbation of joint pain in his hands elbows shoulders and hips he attributes this to his immunotherapy, does exacerbate within a few days and then starts to improve. He is currently taking OxyContin 20 mg twice daily, with oxycodone 10 mg anywhere from 6-8 tabs in 24 hours, he does feel this is actually adequate regimen.) Tiredness/Fatigue: Severe (7-10) Drowsiness/Sedation: Mild (1-3) Nausea: Mild (1-3) Depression: Moderate (4-6) (Patient reports he did have an exacerbation of his depression, when he realized that this was palliative treatment in nature and not curative. He reports usually he is able to really educated" on his treatment, he is unable to read with his cataracts and so has not been able to address his usual mode of coping which is information and searching the Internet. Of note though he also did not understand her exhibits understanding that the radiation and brain treatment is palliative in nature as well. We will continue to support and address questions as they arise) Anxiety: Moderate (4-6) Dyspnea: Moderate (4-6) Anorexia: Mild (1-3) Sleep: Variable sleep pattern Constipation: Yes, Opoid induced, Unmanaged Feelings of wellbeing/Perceived Quality of Life: Fair, Acceptable Performance Status: Patient does appear stronger this visit, he is getting from sitting to standing with only moderate effort. He is able to ambulate short distance though his balance remains of concern. He has started physical therapy, continues to be challenged with transportation and follow through on appointments.Is unable to bathe secondary to cannot get upstairs to the shower, is hoping to find a one level living space. - Palliative Care Discussion: Patient expressing frustration regarding continue to feel overwhelmed by financial stressors, current living situation, relationship with daughter. From his description, it does appear she is trying to assist with helping him manage his medications, appointments, but though he is appreciative he is quite distressed. From his personal sharing it does sound complex, with many factors playing in to this. He is able to acknowledge his fluctuating mood and depression related to the seriousness of his illness, he is hoping for the best and some increased quality and quantity of time. He gets very frustrated with the system, also appears to have some difficulty tracking information as he reports his "brain still is not together". He does have some insight into some of his cognitive deficits. Results - Lab Results Lab results reviewed: Yes Impression and Recommendations - Palliative Care Impression: This is a 57-year-old gentleman with metastatic adenocarcinoma of the lung with brain metastases, currently undergoing immunotherapy. Patient does have multiple underlying comorbidities that are impacting his quality of life, has multiple challenges both psychosocial and financial, and high symptom burden. Palliative care providing support and assistance with pain and symptom management as well as teasing out goals of care in this complex and unique patient. Recommendations/Counseling Done: 1. Hypokalemia. Patient to be on 20 mEq 2 tabs twice daily, this is reviewed with patient and written. I did follow-up with his Mediset's this is what is in his pillbox. Did receive confirmation from [facility], of dosing as well. Counseling regarding importance of medication adherence particularly in the context of his 2.6 potassium yesterday. 2. Acute on chronic pain, this is multifactorial in origin. Patient currently on OxyContin 20 mEq twice daily, and oxycodone 1-2 tablets for breakthrough pain not to exceed 8 tablets in 24 hours. Patient does have difficulty secondary eyesight and cognitive deficits as well as impulsivity staying within guidelines, we did count his pills, currently he is on track and his prescriptions should be adequate. I did write out for him on his list when next refills are to, with counseling regarding need to stay within prescribed limits. He did acknowledge understanding though admits when acutely distressed R with significant pain does take extra dosing. Given the high level of his discomfort, and increased chest pain, though did discuss weighing benefits of burdens of increasing OxyContin to 3 times daily to decrease breakthrough dosing , patient at this point in time does not want to change current regimen. Of note patient probably good candidate for methadone given the neuropathic nature of his pain, but given his living situation would need more supervision to make this transition. 3. Constipation. Patient is taking prescribed senna 2 tabs twice daily, has decreased use of [place] milk of mag as instructed. Will continue to titrate accordingly. 3. Anorexia. Patient is trying to work on adequate calorie intake, is come complex in his current living situation and presents with many frustrations regarding this. 4. Depression. Patient not currently on an antidepressant, though given his intensity for hyponatremia would like to avoid this as well as concerns regarding medication adherence. Counseling provided and normalizing his feelings of grief and loss as well as processing the seriousness of his illness. He feels like he is doing better than a couple weeks ago. 5. Anxiety. This is both most likely chronic, as well situational. Patient cannot move forward on any further plans until SSI starts. He is working with daughter for transportation, is signed up with Senior services, as well as paratransit though this is difficult for him to use given the long wait times. 6. Advanced care planning. Patient remains ambiguous as who he wants as his DPO A. By default to [facility], at this point in time it would be his daughter adriana. Will continue to explore this as we move forward. 7. Medication adherence. Patient distressed with current Mediset's, unable to locate master list, we did discuss having list with medications and available to providers who are seeing him on a regular basis. He will follow-up with his daughter. Time Spent: 60 minutes with greater than 50% of this done in counseling regarding opioid safety and management of pain, counseling for depression and anxiety, anticipatory guidance. Patient has pending appointments 09/14 cardiology, we set an appointment in 2 weeks, patient is also following up on cataract surgery and sees Dr. Castillo at end of month.
== END 2017-08-30 20:05 | disposition home or self-care (01) ==
LOC: PC 20:04
PROVIDERS: ATTEND Nurse Practitioner Adult Health
DX: Z51.5 Encounter for palliative care (principal); E87.6 Hypokalemia; K59.03 Drug induced constipation; T40.2X5D Adverse effect of other opioids, subsequent encounter; R63.0 Anorexia; F32.9 Major depressive disorder, single episode, unspecified; F41.9 Anxiety disorder, unspecified; C34.90 Malignant neoplasm of unspecified part of unspecified bronchus or lung; G89.3 Neoplasm related pain (acute) (chronic); C79.31 Secondary malignant neoplasm of brain; Z79.891 Long term (current) use of opiate analgesic
CPT/HCPCS: 99350

== ENCOUNTER 2017-09-11 15:15 | Outpatient (CLI) | payer MEDICAID ==
--- NOTE | 2017-09-11 19:57 | CONSULTATION NOTE ---
Palliative Care Follow Up - Referral Referring Provider: Dr. Castillo Time of Visit: [id number] Referral setting: Home Referral Reason: Acute on chronic Pain/Lung Cancer/CHF - Information Sources Records reviewed: Previous records reviewed History/Review of Systems obtained from: Patient Exam limitations: No limitations - History of Present Illness Update Brief HPI Update: This is a feisty 57-year-old gentleman with adenocarcinoma of the lung, with known brain metastases with surgery done at [facility] in 02/2017. Reports neurologist has instructed him to taper off his Levetiracetam, At this point it is unclear if he has had a seizure in the past, but perceives he has not. He also has had an exacerbation of his lower extremity edema for which he has taken a significant increase of his torsemide a reported 3-4 a day for couple days, currently he presents with no lower extremity edema other than baseline trace to 1+ with his feet wrapped. He does report he does get increased shortness of breath with his fluid retention. He is due to see the director fraud this Sunday, his overall complex medical management remains challenging given patient's propensity to self manage medications. Patient does present with high symptom burden, review of pain regimen of OxyContin 20 mg twice daily as well as oxycodone 10 mg tablets for breakthrough pain. Patient does try to stay within the limits, he has been given instruction for 6 tabs daily, 8 tabs for exacerbation in 24 hours. His pain is multifactorial in origin. Does have improving left chest pain, he has had exacerbation of his arthritis pain particularly in his hands and knees, this has worsened with his immunotherapy, which can be a known side effect. He also reports increased depressive symptoms, is quite tearful, is worried about the future. Continues to have multiple financial stressors, SSI did come through, and now is on search for finding housing. He does continue to drink, the reports he has decreased both alcohol and smoking from baseline. He also has severe anxiety disorder, this exacerbates with any kind of interaction related to the medical system and the current psychosocial challenges he is dealing with. Social History - Living Situation Living arrangement: Homeless, Other Living Situation: With family (Currently staying on sister's couch, this is complicated as sister has 3 teenage boys she is caring for. She is quite supportive but he is wanting to be more independent.) Medications/Allergies - Medications Home Medications: Ambulatory Orders Medication Instructions Recorded Confirmed Albuterol [Ventolin Hfa] 2 puffs INH Q4H PRN 11/11/14 09/11/17 Lorazepam [Ativan] 1 mg PO Q8HR PRN 09/23/15 09/11/17 Tamsulosin [Flomax] 0.4 mg PO QPM 06/29/16 09/11/17 Esomeprazole Magnesium [Nexium 20 mg PO DAILY 08/10/16 09/11/17 24Hr] Oxycodone HCl [Oxycontin] 20 mg PO BID 07/04/17 09/11/17 Torsemide 20 mg PO BID 07/04/17 09/11/17 Oxycodone HCl 10 mg PO Q4HR PRN MDD 8 tabs 07/26/17 09/11/17 Vitamin B Complex 1 tab PO DAILY 07/26/17 09/11/17 levETIRAcetam [Levetiracetam] 500 mg PO .TITRATING DOWN & DC 07/26/17 09/11/17 Sennosides [Senna Lax] 2 tab PO BID 08/10/17 09/11/17 Lidocaine Ointment 5% [Xylocaine 1 appful TOP PRN PRN 08/20/17 09/11/17 Ointment 5%] Amlodipine Besylate [Amlodipine 10 mg PO DAILY 08/21/17 09/11/17 Besylate] Melatonin 1 tab PO DAILY PM 08/29/17 09/11/17 Magnesium Oxide [Magnesium] 400 mg PO BID 08/30/17 09/11/17 Potassium Chloride [K-Dur] 40 meq PO BID 08/30/17 09/11/17 - Allergies Allergies/Adverse Reactions: Allergies Allergy/AdvReac Type Severity Reaction Status Date / Time [place] Inhibitors Allergy Emesis Verified 08/20/17 12:32 lisinopril Allergy "THROAT Verified 08/20/17 12:32 SWELLING" Review of Systems - Constitutional Constitutional: reports: Fatigue, Weakness, Poor appetite - Eyes Eyes: reports: Vision loss (weighting on referral for cataract surgery) - Ears, Nose & Throat Ears, Nose & Throat: reports: Hearing loss, Sore throat, Hoarseness, Dental decay - Cardiovascular Cardiovascular: reports: Edema, Exertional dyspnea, Decr. exercise tolerance. denies: Chest pain - Respiratory Respiratory: reports: Cough, Sputum production, SOB at rest, SOB with exertion, Other (attempting to decrease smoking) - Gastrointestinal Gastrointestinal: reports: Constipation (titrating Senna with better control of constipation;), Nausea (needing ondansetron a few times a week; still having intermittent gagging; worsens with anxiety), Poor appetite, Early satiety. denies: Reflux/heartburn - Genitourinary Genitourinary: reports: Frequency, Urgency, Incontinence - Musculoskeletal Musculoskeletal: reports: Back pain, Muscle aches, Stiffness, Limited range of motion, Muscle weakness, Joint pain - Integumentary Integumentary: reports: Dryness, Other (Reports saw splicer helper with review of his skin, toes, and "bump on the bottom of his left foot. Denies any open areas or areas of concern currently. Does have [place] wraps intact) - Neurological Neurological: reports: General weakness, Memory problems - Psychiatric Psychiatric: reports: Depression, Anxiety - All Other Systems All Other Systems: reports: Reviewed and negative Physical Exam - Vital Signs Temperature: 97.8 C Pulse Rate: 112 Respiratory Rate: 18 O2 Saturation: 98 (ra @ rest) Blood Pressure: 92/64 - Physical Exam General Appearance: positive: Mild distress Eyes Bilateral: positive: Normal inspection ENT: positive: Pharyngeal erythema (complaining of "sore throat" has chorohexidine rinse to be using; poor dentition) Neck: positive: No JVD, Trachea midline. negative: Lymphadenopathy (R), Lymphadenopathy (L) Cardiovascular: positive: Tachycardia (patient reports baseline; does appear dry today though taking fluids) Respiratory: positive: Diminished throughout. negative: Wheezes, Rales, Rhonchi Abdomen: positive: Soft Skin: positive: Pallor Extremities: positive: Pedal edema (1+ difficult to evaluate with [place] wraps) Neurologic/Psychiatric: positive: Oriented x3, Weakness, Depressed mood/affect ( easily moved to tears today) Palliative Care - POLST Patient has POLST: No Pain: Pain worsening, Location (exacerbation of pain in knuckles/bilat knees; baseline neuropathic pain; chest pain improved) Tiredness/Fatigue: Moderate (4-6) (sleeps alot during day; up late at night) Drowsiness/Sedation: Moderate (4-6) Nausea: Moderate (4-6) (has daily; taking ondansetron several times a week; gagging with anxiety) Depression: Severe (7-10) (reports feeling more significant feelings of loss; anticipatory grief related to dx; and overwhelmed with current situation) Anxiety: Moderate (4-6) (underlying anxiety disorder; uses lorazepam 2x a day to manage exacerbations; long term care social worker easily frustrated) Dyspnea: Moderate (4-6) (improved with use of torsemide) Anorexia: Moderate (4-6) ("forces" self to eat; suspect loosing weight) Sleep: Variable sleep pattern Constipation: Yes, Opoid induced, Intermittent constipation (baseline senna 2 tabs BID; intermittent use of MOM) - Palliative Care Discussion: Patient admits to feeling despondent today, quite tearful through visit. When asked what worries him most he is concerned about his children, is unable to really expand on the same, but is expressing feelings of anticipatory grief. He does admit he needs to talk to someone, is willing to meet with meet the manager social Mirta, has had difficulty connecting with social workers in the past. But is willing to give her a try. He does feel able to share some with CASE MANAGEMENT ASSISTANT , but does admit needing to have someone to talk to. Has not completed advanced directives, given content of conversation today will defer to next appointment. Impression and Recommendations - Palliative Care Impression: This is a 57-year-old gentleman with metastatic adenocarcinoma of the lung with brain metastases, currently Receiving immunotherapy. Patient does have multiple underlying comorbidities that are impacting his quality of life, and continued challenges both psychosocial and financial with high symptom burden. Palliative care providing support and assistance with pain and symptom management, addressing goals of care in this complex and unique patient Recommendations/Counseling Done: 1. Hypokalemia. Patient is on 20 mEq 2 tab twice daily, has abandoned the pillboxes. Did review if going to increase torsemide on his own, also needs to add increased potassium. Again counseling regarding importance of medication adherence particularly the context of his ongoing issues. 2. Acute on chronic pain, this is multifactorial in origin. Patient currently managed on OxyContin 20 mg twice a day and oxycodone up to 8 tabs for breakthrough pain medication. Actually patient not interested in increasing baseline, does appear to be managing adequately, does understand will need to stay within the limits and continue to use one provider. 3. Congestive heart failure. Patient is seeing director fraud this Sunday. Patient continues to somewhat self regulate his torsemide, patient's blood pressure low today, does have some poor health literacy and understanding regarding the impact of his titrating his torsemide. His blood pressure is 92/ 64 and he is slightly tachycardic. He reports tachycardia is his baseline though of concern, particularly in the context of his fatigue. Reviewed again the need to stay within parameters, instructed to hold torsemide this evening, to take every morning and p.m. only if swelling continues, if going to add increased torsemide needs to add potassium but recommended to remain adherent to the guidelines. 3. Depression. I discussed at length benefits and burdens regarding past experiences with antidepressants, does sound like he has had sedation and has not been adherent long enough to experience any significant results. We did discuss in the context of the situational depression using her considering allowing the manager social to provide some support. Patient is expressing feelings of grief and loss, does have underlying general anxiety disorder and difficulty processing the palliative intent of his treatment. 4. Anxiety. Patient does have chronic underlying generalized anxiety disorder , as well as increased stressors. He does have difficulty managing his multiple appointments, his sister does provide support as well his daughter. Will continue to work with him for long-term plan. 5. Advanced care planning. Patient remains ambiguous in today with high anxiety and depression, will continue to explore this as we move forward. 6 medication adherence. Patient abandoned pillboxes filled by daughter, does take from his bottles, his sister does try to support him in this. Patient able to verbalize what he is taking, unclear his adherence accordingly. Patient continues with complex needs and complex medical decision-making. Will continue to see him every 2 weeks for ongoing support.Referral to palliative care manager social for psychosocial support long-term planning and counseling for adjustment illness Time Spent: 60 minutes with greater than 50% of this done in counseling regarding pain and symptom management, depression, and anticipatory guidance
== END 2017-09-11 15:16 | disposition home or self-care (01) ==
LOC: PC 15:15
PROVIDERS: ATTEND Nurse Practitioner Adult Health
DX: Z51.5 Encounter for palliative care (principal); E87.6 Hypokalemia; G89.29 Other chronic pain; I50.9 Heart failure, unspecified; F41.8 Other specified anxiety disorders; C34.90 Malignant neoplasm of unspecified part of unspecified bronchus or lung; C79.31 Secondary malignant neoplasm of brain; F17.200 Nicotine dependence, unspecified, uncomplicated; D69.6 Thrombocytopenia, unspecified; R45.89 Other symptoms and signs involving emotional state; R53.83 Other fatigue; R53.1 Weakness; R63.0 Anorexia; H54.7 Unspecified visual loss; H91.90 Unspecified hearing loss, unspecified ear; K02.9 Dental caries, unspecified; J02.9 Acute pharyngitis, unspecified; R00.0 Tachycardia, unspecified; R06.00 Dyspnea, unspecified; Z79.891 Long term (current) use of opiate analgesic; K59.03 Drug induced constipation; Z59.0 Homelessness
CPT/HCPCS: 99350

== ENCOUNTER 2017-09-25 14:15 | Outpatient (CLI) | payer MEDICAID ==
--- NOTE | 2017-09-25 20:46 | CONSULTATION NOTE ---
Palliative Care Follow Up - Referral Referring Provider: Dr. Castillo Time of Visit: [id number] Referral setting: Home (It is a taxing and considerable effort for the patient to leave the home related to fatigue/pain; home visit to evaluate treatment plan /medication adherence) Referral Reason: Lung Cancer/ Acute on chronic pain - Information Sources Records reviewed: Previous records reviewed History/Review of Systems obtained from: Patient Exam limitations: Clinical condition (patient with intermittent STM issues; fairly clear today) - History of Present Illness Update Brief HPI Update: This is a feisty 52-year-old gentleman with adenocarcinoma of the lung, with known brain metastases, surgery done at [facility] 02/2017. Patient has been tapered off his Keppra, it is unclear if he has had seizures in the past. He is currently on pembrolizumab, just completed his fourth cycle. He does get an exacerbation of joint pain, and swelling for about a week. He reports this is fairly severe in nature, and congruent with the timing of his immunotherapy. Patient had canceled his cardiology appointment, secondary to transportation issues. Encouraged to be schedule, is somewhat nonchalant in his torsemide use , does get lower extremity edema which exacerbates his neuropathies. Is using the torsemide 20 mg twice daily, and increases for lower extremity edema. He does keep his legs wrapped, though he also keep some dependent with resulting increased swelling. Patient also recently started on gabapentin, currently at 800 mg twice daily. Patient had "panicked" as he had had a pain exacerbation, and had used more of his oxycodone. Have been told by a friend Arielleryley which is not covered by his insurance, was the magic pill. He does have severe lower extremity neuropathy, most likely related to his alcoholism. At this point in time he has not seen much improvement, though he does report some increased sedation, which is why he was not willing to try it prior. Is also on OxyContin 20 mg twice daily, did not get that filled for about a week after he ran out, so he did use more of his oxycodone. Continues to have difficulty managing with medication adherence, this certainly has significant underlying pain. He does still continue to smoke, as well as drink 1-2 beers a day, sometimes vodka. This has been a maintenance level for him for fairly long period of time. Social History - Living Situation Living arrangement: Other (staying on sister's couch; working on finding place) Support System: Is perseverating quite a bit today on having his daughter adriana as his "payee" for Social Security, he is trying to figure out his finances so as to be able to find some more permanent housing. [place] there. Medications/Allergies - Medications Home Medications: Ambulatory Orders Medication Instructions Recorded Confirmed Albuterol [Ventolin Hfa] 2 puffs INH Q4H PRN 11/11/14 09/25/17 Lorazepam [Ativan] 1 mg PO Q8HR PRN 09/23/15 09/25/17 Tamsulosin [Flomax] 0.4 mg PO BID 06/29/16 09/25/17 Esomeprazole Magnesium [Nexium 20 mg PO DAILY 08/10/16 09/25/17 24Hr] Oxycodone HCl [Oxycontin] 20 mg PO BID 07/04/17 09/25/17 Torsemide 20 mg PO BID MDD extra dose PRN 07/04/17 09/25/17 Oxycodone HCl 10 mg PO Q4HR PRN MDD 8 tabs 07/26/17 09/25/17 Vitamin B Complex 1 tab PO DAILY 07/26/17 09/25/17 Sennosides [Senna Lax] 2 tab PO BID 08/10/17 09/25/17 Lidocaine Ointment 5% [Xylocaine 1 appful TOP PRN PRN 08/20/17 09/25/17 Ointment 5%] Amlodipine Besylate [Amlodipine 10 mg PO DAILY 08/21/17 09/25/17 Besylate] Melatonin 5 mg PO DAILY PM 08/29/17 09/25/17 Magnesium Oxide [Magnesium] 400 mg PO BID 08/30/17 09/25/17 Potassium Chloride [K-Dur] 40 meq PO BID 08/30/17 09/25/17 Gabapentin [Neurontin] 800 mg PO BID 09/27/17 09/27/17 - Allergies Allergies/Adverse Reactions: Allergies Allergy/AdvReac Type Severity Reaction Status Date / Time BRONW[place] Inhibitors Allergy Emesis Verified 08/20/17 12:32 lisinopril Allergy "THROAT Verified 08/20/17 12:32 SWELLING" Review of Systems - Constitutional Constitutional: reports: Fatigue. denies: Fever, Chills - Eyes Eyes: reports: Vision loss (only able to see shapes; awaiting cataract surgery) - Ears, Nose & Throat Ears, Nose & Throat: reports: Hearing loss, Dental decay - Cardiovascular Cardiovascular: reports: Exertional dyspnea, Decr. exercise tolerance. denies: Chest pain (resolved, attributed to rib fractures) - Respiratory Respiratory: reports: Cough (occasional; "smokers" still smoking), SOB with exertion - Gastrointestinal Gastrointestinal: reports: Constipation, Nausea (using ondansetron about 2 x a day), Poor appetite (feels improved last week), Early satiety - Genitourinary Genitourinary: reports: Frequency, Urgency, Other (retentive symptoms; using tamulosin BID). denies: Dysuria - Musculoskeletal Musculoskeletal: reports: Back pain, Muscle aches, Stiffness, Limited range of motion, Muscle weakness, Joint pain, Joint swelling (worse after immunotherapy) - Integumentary Integumentary: reports: Dryness - Neurological Neurological: reports: General weakness, Memory problems (fluctuating), Abnormal gait - Psychiatric Psychiatric: reports: Depression (patient still wanting to process his concerns relate to depression with "counselor" ; tearfulness better; resmains stressed), Anxiety (gets anxiety attacks) - Endocrine Endocrine: reports: Intolerance to cold - Hematologic/Lymphatic Hematologic/Lymphatic: reports: Anemia (last hct 35.9). denies: Recurrent infections - All Other Systems All Other Systems: reports: Reviewed and negative Physical Exam - Vital Signs Temperature: 97.4 C Pulse Rate: 104 Respiratory Rate: 18 O2 Saturation: 94 (ra @ rest) Blood Pressure: 112/64 - Physical Exam General Appearance: positive: Mild distress, Anxious Eyes Bilateral: positive: No lid inflammation, Conjunctivae nml ENT: positive: No signs of dehydration Neck: positive: No JVD, Trachea midline Cardiovascular: positive: Tachycardia Respiratory: positive: Diminished throughout. negative: Wheezes, Rales, Rhonchi Abdomen: positive: Soft Skin: positive: Pallor, Dryness, Other (legs wrapped not observed) Extremities: positive: Pedal edema Neurologic/Psychiatric: positive: Oriented x3, Weakness, Depressed mood/affect, Flat affect Palliative Care - POLST Patient has POLST: No Pain: Pain worsening, Location (Patient is on OxyContin 20 mg twice a day as well as oxycodone 10 mg tabs for breakthrough pain, he has been trying to stay within his 8 tabs in 24 hours though has exceeded this as he ran out of OxyContin. His pain is multifactorial in origin, he has initiated gabapentin at 400 mg, is titrated currently at 2 capsules twice daily, has had some sedation, at this point has not noticed increased pain relief. Does have some intermittent left chest pain that this has been improving, he is post 1 week from his immunotherapy which exacerbates the arthritis in his hands and knees, which can be a known side effect.) Tiredness/Fatigue: Moderate (4-6) Drowsiness/Sedation: Moderate (4-6) Nausea: Mild (1-3) Depression: Severe (7-10) Anxiety: Moderate (4-6) Dyspnea: Moderate (4-6) Anorexia: Mild (1-3) Sleep: Sleeps poorly Constipation: Yes, Opoid induced, Managed Feelings of wellbeing/Perceived Quality of Life: Fair, Acceptable Performance Status: Patient mostly sedentary, is participating in physical therapy, is finding this quite helpful. He is ambulatory around the house, does have poor activity tolerance for longer distances. Does sleep on a couch, with most the time his feet dependent which does make this complicated. The shower is upstairs, but does do bed baths. Is hoping to find a place with a more accessible shower. I would put him at a PPS of 60%. - Palliative Care Discussion: Patient seems less depressed today, more alert and oriented and engaged in conversation. Remains quite stressed in trying to navigate the living situation , is running against many barriers with this. He is still hoping to meet with the medical palliative care rebar worker, to process some of his anxiety regarding his seriousness of his illness. Impression and Recommendations - Palliative Care Impression: This is a 57-year-old gentleman with metastatic adenocarcinoma of the lung with brain metastases, currently receiving immunotherapy, just this completed cycle 4 , will receive restaging CT scan after 6 cycles of his treatment. Continues to struggle with medication adherence, pain management, financial and social stressors. Palliative care providing support regarding pain and symptom management, as well as coordination of care as patient allows. Recommendations/Counseling Done: 1. Hypokalemia. Patient is on 20 mEq of K-Dur 2 tabs daily, continues to titrate his turned some mild, but is taking increased potassium when he does this. Did not follow through on his cardiology appointment, this no labs have been drawn, will arrange for BMP for Sunday just to monitor status given past experience. 2. 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 He is on OxyContin 20 mg twice a day and oxycodone when adherent up to 8 tabs for breakthrough pain. Has initiated gabapentin via his PCP, currently is taking 800 mg twice daily, is instructed to stay on current dosing and no further titration without support. Counseling regarding sedation and pain management expectations, will titrate again in 2 weeks, patient in agreement. Encouraged continued participation and adherence with physical therapy, as well as decreasing his isolation. 3. Congestive heart failure. Patient remains somewhat hypotensive ongoing, instructed to follow-up with cardiology appointment. He does continue to have tachycardia, though this is his baseline. Remains at high risk for exacerbation. 4. Anxiety. Patient does have underlying chronic generalized anxiety disorder , this has been exacerbated with his increased stressors. Is trying to work on long-term plan. 5. Depression. Patient at this point in time did not want to trial antidepressant, and is awaiting appointment with medical palliative care rebar worker, continues to struggle with multiple stressors, and adjustment illness. 6. Advanced care planning. Patient remains ambiguous again today about DPOA, His goals currently are defined a more supportive living environment, retain some control over his finances, and process some of his depressive symptoms. Time Spent: 60 minutes with greater than 50% of this done in counseling regarding medication adherence, pain management, and depression. Palliative care to follow for ongoing support and anticipatory guidance.
== END 2017-09-25 14:16 | disposition home or self-care (01) ==
LOC: PC 14:15
PROVIDERS: ATTEND Nurse Practitioner Adult Health
DX: Z51.5 Encounter for palliative care (principal); E87.6 Hypokalemia; G89.3 Neoplasm related pain (acute) (chronic); C34.90 Malignant neoplasm of unspecified part of unspecified bronchus or lung; C79.31 Secondary malignant neoplasm of brain; G62.1 Alcoholic polyneuropathy; I50.9 Heart failure, unspecified; F41.1 Generalized anxiety disorder; F32.9 Major depressive disorder, single episode, unspecified; Z79.899 Other long term (current) drug therapy; F17.200 Nicotine dependence, unspecified, uncomplicated; K59.03 Drug induced constipation; T40.2X5A Adverse effect of other opioids, initial encounter; Z79.891 Long term (current) use of opiate analgesic
CPT/HCPCS: 99350

== ENCOUNTER 2017-10-10 11:45 | Outpatient (CLI) | payer MEDICAID ==
--- NOTE | 2017-10-10 14:10 | CONSULTATION NOTE ---
Palliative Care Follow Up - Referral Referring Provider: Dr. Jodee Castillo Time of Visit: [id number] Referral setting: [facility] [place] Referral Reason: Pain of neoplastic origin/Depression/NSCLC - Information Sources Records reviewed: RN notes reviewed, Previous records reviewed History/Review of Systems obtained from: Patient, Family (daughter Miya at visit) Exam limitations: No limitations - History of Present Illness Update Brief HPI Update: This is a feisty 57-year-old gentleman with adenocarcinoma of the lung, with known brain metastases, surgery done at [place] [id number]. Is currently receiving pembrolizumab, Now on his fifth cycle. Plan is to restage after cycle #6. He does get exacerbation of joint pain and swelling for 1-2 weeks after immunotherapy, this is fairly severe in nature. Patient seen for management of pain, he is on OxyContin 20 mg twice daily, oxycodone 10 mg 1-2 tabs not to exceed 8 tabs in 24 hours, and recently initiated on gabapentin 400 mg twice daily. Patient reports he is finally having some relief of the neuropathy, does attribute this to the gabapentin. He is much clear today, able to engage in conversation, has been participating in physical therapy. He continues to remain quite anxious overall regarding his financial stressors, social stressors, and dealing with his ongoing addiction issues. He has been compliant with his torsemide, he does now have a follow-up appointment 11/09 with the engine inspector. His lower extremity edema does appear improved. Social History - Living Situation Living arrangement: Other (living with sister currently) Support System: Currently seen patient at his [facility] [place] appointment, daughter is accompanying him. Patient does oversee his own care, with support from his sister and daughter for transportation. Medications/Allergies - Medications Home Medications: Ambulatory Orders Medication Instructions Recorded Confirmed Albuterol [Ventolin Hfa] 2 puffs INH Q4H PRN 11/11/14 10/10/17 Lorazepam [Ativan] 1 mg PO Q8HR PRN 09/23/15 10/10/17 Tamsulosin [Flomax] 0.4 mg PO BID 06/29/16 10/10/17 Esomeprazole Magnesium [Nexium 20 mg PO DAILY 08/10/16 10/10/17 24Hr] Oxycodone HCl [Oxycontin] 20 mg PO BID 07/04/17 10/10/17 Torsemide 20 mg PO BID MDD extra dose PRN 07/04/17 10/10/17 Oxycodone HCl 10 mg PO Q4HR PRN MDD 8 tabs 07/26/17 10/10/17 Vitamin B Complex 1 tab PO DAILY 07/26/17 10/10/17 Sennosides [Senna Lax] 2 tab PO BID 08/10/17 10/10/17 Lidocaine Ointment 5% [Xylocaine 1 appful TOP PRN PRN 08/20/17 10/10/17 Ointment 5%] Amlodipine Besylate [Amlodipine 10 mg PO DAILY 08/21/17 10/10/17 Besylate] Melatonin 5 mg PO DAILY PM 08/29/17 10/10/17 Magnesium Oxide [Magnesium] 400 mg PO BID 08/30/17 10/10/17 Potassium Chloride [K-Dur] 40 meq PO BID 08/30/17 10/10/17 Gabapentin [Neurontin] 800 mg PO BID 09/27/17 10/10/17 - Allergies Allergies/Adverse Reactions: Allergies Allergy/AdvReac Type Severity Reaction Status Date / Time BRONWYN Inhibitors Allergy Emesis Verified 08/20/17 12:32 lisinopril Allergy "THROAT Verified 08/20/17 12:32 SWELLING" Review of Systems - Constitutional Constitutional: reports: Fatigue, Weight stable (226). denies: Fever - Eyes Eyes: reports: Vision loss (follow up on cataracts; surgery planned in November; disappointed as anxious to be able to read again) - Ears, Nose & Throat Ears, Nose & Throat: reports: Hearing loss (mild), Dry mouth - Cardiovascular Cardiovascular: reports: Edema, Decr. exercise tolerance. denies: Chest pain - Respiratory Respiratory: reports: Cough (chronic AM no change), SOB with exertion - Gastrointestinal Gastrointestinal: reports: Constipation (intermittent), Nausea (reports consistently on awakening; worsens with immunotherapy for a few days), Good appetite - Genitourinary Genitourinary: reports: Frequency - Musculoskeletal Musculoskeletal: reports: Muscle pain, Back pain, Muscle aches, Stiffness, Limited range of motion, Muscle weakness, Joint pain, Joint swelling (worsens for about two weeks with immunotherapy), Assistive devices (uses cane) - Integumentary Integumentary: reports: Dryness, Other (denies blisters or open areas on feet; wraps on) - Neurological Neurological: reports: General weakness, Memory problems (fluctuates) - Psychiatric Psychiatric: reports: Depression (remains tearful when talking about stressors) , Anxiety ("gets stressed" has cut back again on drinking now that has medication) - Endocrine Endocrine: reports: Intolerance to cold - Hematologic/Lymphatic Hematologic/Lymphatic: reports: Anemia. denies: Recurrent infections - All Other Systems All Other Systems: reports: Reviewed and negative Physical Exam - Physical Exam General Appearance: positive: No acute distress Eyes Bilateral: positive: Normal inspection ENT: positive: No signs of dehydration Neck: positive: No JVD, Trachea midline Cardiovascular: positive: Regular rate & rhythm Respiratory: positive: Diminished throughout Abdomen: positive: Soft, Nml bowel sounds Skin: positive: Pallor Extremities: positive: Pedal edema (left greater right) Neurologic/Psychiatric: positive: Oriented x3, Mood/affect nml Palliative Care - POLST Patient has POLST: No Pain: Pain improved, Location (midsternal chest area; left rib area; LE neuropathy; back pain) Tiredness/Fatigue: Moderate (4-6) Drowsiness/Sedation: Moderate (4-6) Nausea: Moderate (4-6) (having difficulty with RX at pharmacy; nausea most severe on awakening; does have intermittent retching; had been taking ondansetron) Depression: Severe (7-10) Anxiety: Moderate (4-6) Dyspnea: Mild (1-3) Anorexia: Moderate (4-6) Sleep: Variable sleep pattern Constipation: Yes, Opoid induced, Managed Feelings of wellbeing/Perceived Quality of Life: Fair, Improved Performance Status: Patient benefiting from physical therapy, is walking with a cane and not walker. He is feeling somewhat stronger. He still has poor activity tolerance , but is able to manage his own ADLs. He is starting to do some cooking, though has difficulty tolerating standing for long periods of time secondary to his neuropathy. I would put him at a PPS of 70% - Palliative Care Discussion: Patient continues to struggle with multiple stressors, both external and internal. He did meet with the medical palliative care social work professor, is still trying to navigate his living situation. Continues to have high anxiety ongoing regarding his cancer. Results - Lab Results Lab results reviewed: Yes Impression and Recommendations - Palliative Care Impression: This is a 57-year-old gentleman with metastatic adenocarcinoma of the lung with brain metastases, currently receiving immunotherapy completing his fifth treatment today. Continues to struggle with high symptom burden, financial and social stressors. Palliative care providing ongoing support regarding pain and symptom management as well as coordination of care. Recommendations/Counseling Done: 1. Acute on chronic pain, multifactorial in origin. Has had response to gabapentin 800 mg twice daily with his neuropathy, patient counseled to contact me if he starts using increased oxycodone, preferably would like to increase gabapentin versus use of opioid. Patient verbalizes understanding. Patient counseled on adherence and instructed on opioid safety in the context of using with benzodiazepines and alcohol. Patient verbalizes understanding. Encouraged again continue participation and adherence with physical therapy, as well as decreasing isolation. 3. Congestive heart failure. Patient continues to titrate torsemide according to lower extremity edema. This is better controlled today. He did not follow up on BMP as instructed, but labs today are within normal limits. He is taking extra potassium when he takes extra torsemide, counseled to follow-up with his cardiology appointment both with patient and daughter who provides transportation. 3. Anxiety. patient has underlying chronic generalized anxiety disorder, continues to be difficult with increased stressors, has met with medical palliative care social work professor. 4. Advanced care planning. Patient remains ambiguous again what to do about his DPOAE, his goals currently are to complete his immunotherapy, find a more supportive living environment, and focus on quality of life. Time Spent: 30 minutes spent on counseling regarding pain management, pain medications safety, counseling for depression and anxiety and anticipatory guidance
== END 2017-10-10 11:46 | disposition home or self-care (01) ==
LOC: PC 11:45
PROVIDERS: ATTEND Nurse Practitioner Adult Health
DX: Z51.5 Encounter for palliative care (principal); C34.90 Malignant neoplasm of unspecified part of unspecified bronchus or lung; G89.3 Neoplasm related pain (acute) (chronic); C79.31 Secondary malignant neoplasm of brain; G62.9 Polyneuropathy, unspecified; Z79.891 Long term (current) use of opiate analgesic; M62.81 Muscle weakness (generalized); F32.9 Major depressive disorder, single episode, unspecified; R11.0 Nausea; F41.9 Anxiety disorder, unspecified; K59.03 Drug induced constipation; T40.2X5D Adverse effect of other opioids, subsequent encounter; Z79.899 Other long term (current) drug therapy
CPT/HCPCS: 99214

== ENCOUNTER 2017-10-26 12:25 | Outpatient (CLI) | payer MEDICAID | END 2017-10-26 12:26 | disposition home or self-care (01) | LOC: LAB.R 12:25 | PROVIDERS: ATTEND Nurse Practitioner Family | DX: B82.9 Intestinal parasitism, unspecified (principal) | CPT/HCPCS: 87177; 87209 ==

== ENCOUNTER 2017-10-31 14:35 | Outpatient (CLI) | payer MEDICAID ==
--- NOTE | 2017-10-31 19:38 | CONSULTATION NOTE ---
Palliative Care Follow Up - Referral Referring Provider: Dr. Castillo Time of Visit: [id number] Referral setting: [facility] [place] Referral Reason: Acute on chronic pain/depression/Goals of care/Lung Cancer - Information Sources Records reviewed: Previous records reviewed History/Review of Systems obtained from: Patient Exam limitations: Clinical condition (patient with STM issues; poor recall) - History of Present Illness Update Brief HPI Update: This is a feisty 57-year-old gentleman with adenocarcinoma of the lung, with known brain metastases, status post CyberKnife for at [facility] 2016. He is currently receiving pembrolizumab, Now starting his 6 cycle, plan is to restage after this point. He does have a fluctuating cycle with exacerbation of joint pain and swelling after immunotherapy, this is fairly severe in nature, and more difficult to control his pain. 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 Continues to struggle with medication adherence, currently on OxyContin 20 mg twice daily, oxycodone 10 mg tabs 1-2 tabs with the goal first 6 or less a day, is consistently using 8-10 related to increase in severity over the last couple weeks. He has also been initiated on gabapentin 800 mg twice daily, most recently increased to 800 mg TID. Patient does oversee and manage his own medications, patient with poor eyesight secondary to severe cataracts. He is able to teach back his current meds and regimen. He does report increase in loose stools over the last 2 weeks, denies that it is attributed to drug withdrawal, was concerned he had parasites in his stool, we did review these tests were negative. Patient continues to deal with multiple stressors related to finances and brink of homelessness he is currently staying at his sister's couch Social History - Living Situation Living arrangement: Other Living Situation: With family (Continued to live on sister's couch in [place] , having difficulty finding housing. Now has plan to move him with disabled friend, but has no definitive apartment, but it, are pending lease. This is been a huge stressor for both patient and for her sister.) Medications/Allergies - Medications Home Medications: Ambulatory Orders Medication Instructions Recorded Confirmed Albuterol [Ventolin Hfa] 2 puffs INH Q4H PRN 11/11/14 10/31/17 Lorazepam [Ativan] 1 mg PO Q8HR PRN 09/23/15 10/31/17 Tamsulosin [Flomax] 0.4 mg PO BID 06/29/16 10/31/17 Esomeprazole Magnesium [Nexium 20 mg PO DAILY 08/10/16 10/31/17 24Hr] Oxycodone HCl [Oxycontin] 20 mg PO TID 07/04/17 10/31/17 Torsemide 20 mg PO BID MDD extra dose PRN 07/04/17 10/31/17 Oxycodone HCl 10 mg PO Q4HR PRN MDD 8 tabs 07/26/17 10/31/17 Vitamin B Complex 1 tab PO DAILY 07/26/17 10/31/17 Sennosides [Senna Lax] 2 tab PO BID 08/10/17 10/31/17 Lidocaine Ointment 5% [Xylocaine 1 appful TOP PRN PRN 08/20/17 10/31/17 Ointment 5%] Amlodipine Besylate [Amlodipine 10 mg PO DAILY 08/21/17 10/31/17 Besylate] Melatonin 5 mg PO DAILY PM 08/29/17 10/31/17 Magnesium Oxide [Magnesium] 400 mg PO BID 08/30/17 10/31/17 Potassium Chloride [K-Dur] 40 meq PO BID 08/30/17 10/31/17 Gabapentin [Neurontin] 800 mg PO TID 09/27/17 10/31/17 - Allergies Allergies/Adverse Reactions: Allergies Allergy/AdvReac Type Severity Reaction Status Date / Time BRONWYN Inhibitors Allergy Emesis Verified 08/20/17 12:32 lisinopril Allergy "THROAT Verified 08/20/17 12:32 SWELLING" Review of Systems - Constitutional Constitutional: reports: Fatigue, Weakness, Poor appetite - Eyes Eyes: reports: Vision loss (awaiting cataract surgery) - Ears, Nose & Throat Ears, Nose & Throat: reports: Hearing loss, Nasal congestion, Dental decay - Cardiovascular Cardiovascular: reports: Chest pain, Edema, Lightheadedness, Exertional dyspnea , Decr. exercise tolerance - Respiratory Respiratory: reports: Cough (reports frequent phelgm in am), SOB with exertion. denies: Hemoptysis, SOB at rest - Gastrointestinal Gastrointestinal: reports: Diarrhea (reports loose stool for "couple of weeks" had ova/parasites which was negative), Nausea (intermittent; using ondansetron with relief), Reflux/heartburn, Poor appetite, Early satiety - Genitourinary Genitourinary: reports: Frequency, Urgency, Incontinence. denies: Dysuria - Musculoskeletal Musculoskeletal: reports: Muscle pain, Back pain, Muscle aches, Stiffness, Limited range of motion, Muscle weakness, Joint pain, Assistive devices (using cane), Other (continuing to work with PT though reports "messed up visits" last week) - Integumentary Integumentary: reports: Dryness - Neurological Neurological: reports: General weakness, Memory problems, Abnormal gait - Psychiatric Psychiatric: reports: Depression, Anxiety - Endocrine Endocrine: reports: Diabetes type 2, Intolerance to cold - Hematologic/Lymphatic Hematologic/Lymphatic: denies: Recurrent infections - All Other Systems All Other Systems: reports: Reviewed and negative Physical Exam - Vital Signs Pulse Rate: 88 Blood Pressure: 120/81 - Physical Exam General Appearance: positive: Mild distress, Anxious Eyes Bilateral: positive: Normal inspection ENT: positive: No signs of dehydration, Other (poor dentition) Neck: positive: No JVD, Trachea midline Cardiovascular: positive: Regular rate & rhythm Respiratory: positive: Diminished in bases Abdomen: positive: Non-tender, Soft, Nml bowel sounds, Distended Skin: positive: Dryness, Other (LE wrapped in aces; patient history of wounds reports healed at this time) Extremities: positive: Pedal edema Neurologic/Psychiatric: positive: Oriented x3, Mood/affect nml, Weakness Palliative Care - POLST Patient has POLST: No Pain: Pain worsening, Location (Patient describes pain and midsternal chest area , increases with cough or deep breaths, denies any increase in cough or sputum production. Often radiates around to the back. Most severe pain is his lower extremities, severe sharp shooting neuropathy, does report the increase in the gabapentin from 800 twice daily to 800 3 times daily has started to help. Patient had run out of his pain medications short acting as before. Patient is using about 60-80 mg of oxycodone as well as his 40 mg of OxyContin, reports when he has "all on board" his pain is well controlled. Reviewed again concern about using lorazepam/opioids/alcohol (2 beers/some vodka) daily and risk for falls and respiratory depression.) Tiredness/Fatigue: Moderate (4-6) Drowsiness/Sedation: Moderate (4-6) Nausea: Mild (1-3) Depression: Severe (7-10) Anxiety: Severe (7-10) Dyspnea: Moderate (4-6) Anorexia: Mild (1-3) Sleep: Variable sleep pattern Constipation: Comment (not using bowel meds currently with loose stool) Feelings of wellbeing/Perceived Quality of Life: Fair, Acceptable, No change Performance Status: Patient does report some increase and baseline endurance and strength. Though he does still spend most of his time on the couch, just ambulating to the bathroom, as well as sleeping for the greater part of the day. He does get up and assist with some meal prep, he is dependent on others for transportation, was often disorganized in his thinking and ability to follow through. Shower is upstairs, patient is sponge bathing only. - Palliative Care Discussion: Patient's biggest worry is currently has financial stressors and finding of living situation. He had actually introduced that he had been watching the " end game" which is a [employer] documentary on palliative and end-of-life care, when asked about his reflections on this, he was able to share that is hard to go there, did agree that when things settle down, we should talk about his end- of-life plans. He gets very anxious and considering his future, at this point in time he does understand he is receiving palliative chemotherapy only, continues to suffer with depression, and has fluctuating moods impacted By his situation and his medication use. Has been provided resources regarding counseling, is meeting with medical palliative care social services designee on a regular basis, patient has difficulty being compliant with making appointments and follow-through Results - Lab Results Lab results reviewed: Yes Impression and Recommendations - Palliative Care Impression: This is a 57-year-old gentleman with metastatic adenocarcinoma the lung with known brain metastases status post CyberKnife. He is currently receiving immunotherapy, to initiate his fifth treatment today. He continues to struggle with high symptom burden, uncontrolled pain, financial and social stressors, uncontrolled depression and exacerbated anxiety. Palliative care team attempting to provide support for pain and symptom management in this very complex patient. Recommendations/Counseling Done: 1. Acute on chronic pain, multifactorial in origin. Gabapentin has been recently titrated up to 800 3 times daily, this is to address his increase in severity of his neuropathies, discussed his increased use of oxycodone, does feel like when he gets at a therapeutic dose which is around 100 mg of oxycodone equivalent, he does feel his chest pain and discomfort and some impact on his lower extremities. Will go ahead and increase his OxyContin 20 mg to 3 times daily today, with the goal to decrease his oxycodone use, patient did verbalize the intent and goals with this, as well as the goal to stay at 6 tabs are less than 24 hours. Patient has been counseled about safety issues, including storage, concurrent use of alcohol and benzodiazepines, as well as instructed to improve his adherence with physical therapy. Patient able to verbalize back instructions and written instructions provided in large black print given patient's inability to read with his cataracts 2. Congestive heart failure. Patient continues to titrate torsemide according to lower extremity edema, he is still not had [place] Currently his labs reflect no increasing concern. 3 depression. Patient continues to experience depressive persistent symptoms, he does attribute this to his current living situation, as well as financial stressors. He has been offered various resources, as well as support from the palliative care social services designee. Patient declines use of antidepressant, which I suspect is good not adding yet another pill. 4diarrhea. Unclear current etiology, patient is continuing still to drink, has irregular eating patterns, most recently had him which exacerbated his swelling. Patient perceives this gets a more stable living situation, would have more control over his meal prep and would be more compliant. Did instruct though to monitor closely, as patient has been having severe constipation in the past, he does have senna we reviewed bowel program. 5 Advanced care planning. Patient continues to be somewhat ambivalent and pudding wishes and to advance directives, he does have a high anxiety when contemplating end-of-life plans. He very much so wants to address this, patient initiated the conversation this time, agreed we would revisit after he is stabilized his living situation. Time Spent: Time spent 30 minutes with greater than 50% of this done in counseling regarding pain and symptom management, opioid safety, counseling for depression , and anticipatory guidance
== END 2017-10-31 14:36 | disposition home or self-care (01) ==
LOC: PC 14:35
PROVIDERS: ATTEND Nurse Practitioner Adult Health
DX: Z51.5 Encounter for palliative care (principal); C34.90 Malignant neoplasm of unspecified part of unspecified bronchus or lung; C79.31 Secondary malignant neoplasm of brain; Z79.899 Other long term (current) drug therapy; J44.9 Chronic obstructive pulmonary disease, unspecified; I50.9 Heart failure, unspecified; F32.9 Major depressive disorder, single episode, unspecified; F41.9 Anxiety disorder, unspecified; H26.9 Unspecified cataract; Z89.429 Acquired absence of other toe(s), unspecified side; Z79.891 Long term (current) use of opiate analgesic; H91.90 Unspecified hearing loss, unspecified ear; R19.7 Diarrhea, unspecified; G89.29 Other chronic pain; E11.42 Type 2 diabetes mellitus with diabetic polyneuropathy; R35.0 Frequency of micturition; R39.15 Urgency of urination; R32 Unspecified urinary incontinence
CPT/HCPCS: 99214

== ENCOUNTER 2017-11-21 15:06 | Outpatient (CLI) | payer MEDICAID ==
--- NOTE | 2017-11-21 18:11 | CONSULTATION NOTE ---
Palliative Care Follow Up - Referral Referring Provider: Dr. Jodee Castillo Time of Visit: [id number] Ref[place] setting: [facility] [place] [facility] [place] Reason: Pain of neoplastic origin/Lung Cancer - Information Sources Records reviewed: Previous records reviewed History/Review of Systems obtained from: Patient Exam limitations: Clinical condition (patient with poor short term memory) - History of Present Illness Update Brief HPI Update: Wilson has had restaging CT scan. His mass in the posterior right lung now measures 6.24.1 cm slight decrease, but there are new nodular opacities in the right middle lobe, concern with a represent infiltrate or metastatic disease. He has been started on Augmentin by the oncologist,. Patient's abdominal CT showed a stable right inguinal hernia, fatty infiltration of the liver, and no further evidence of metastatic disease. 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 Patient does struggle with addiction disorder, he is a chronic alcoholic, he reports he is drinking only 2 beers and occasional rum and coke, this is his baseline and has not changed for several months. He also continues to smoke, but reports he is down to 10 cigarettes a day. He also has ongoing pain, this is somewhat multifactorial in origin. He does have dull frequent ache in his right chest area that radiates around to the back. He also has bilateral peripheral neuropathy, that fluctuates in severity. He is currently on OxyContin 20 mg 3 times daily, oxycodone 10 mg tabs 1-2 averaging about 6-8 a day, as well as gabapentin 800 mg 3 times daily. He does oversee his own pain meds, which is a concern with his limited eyesight, but he has limited caregiving support. He continues to deal with multiple stressors and depression most of these are related to his finances, is currently on his sister 's couch, is unable to resolve his homelessproblemis is a feisty 52-year-old gentleman with adenocarcinoma of the lung with known brain metastasis disease, status post CyberKnife at [facility] 02/2017. He has received 6 cycles of Pembrolizumab, Social History - Living Situation Living arrangement: Other (continues to live with sister on couch, has not made any progress for finding living situation) Support System: Currently estranged from daughter; is distressed as she is the "payee"; is trying to find out how to change though is unable to identify back up "he trusts " Medications/Allergies - Medications Home Medications: Ambulatory Orders Medication Instructions Recorded Confirmed Albuterol [Ventolin Hfa] 2 puffs INH Q4H PRN 11/11/14 11/21/17 Lorazepam [Ativan] 1 mg PO Q8HR PRN 09/23/15 11/21/17 Tamsulosin [Flomax] 0.4 mg PO BID 06/29/16 11/21/17 Esomeprazole Magnesium [Nexium 20 mg PO DAILY 08/10/16 11/21/17 24Hr] Oxycodone HCl [Oxycontin] 20 mg PO TID 07/04/17 11/21/17 Torsemide 20 mg PO BID MDD extra dose PRN 07/04/17 11/21/17 Oxycodone HCl 10 mg PO Q4HR PRN MDD 8 tabs 07/26/17 11/21/17 Vitamin B Complex 1 tab PO DAILY 07/26/17 11/21/17 Sennosides [Senna Lax] 2 tab PO BID 08/10/17 11/21/17 Lidocaine Ointment 5% [Xylocaine 1 appful TOP PRN PRN 08/20/17 11/21/17 Ointment 5%] Amlodipine Besylate [Amlodipine 10 mg PO DAILY 08/21/17 11/21/17 Besylate] Melatonin 5 mg PO DAILY PM 08/29/17 11/21/17 Magnesium Oxide [Magnesium] 400 mg PO BID 08/30/17 11/21/17 Potassium Chloride [K-Dur] 40 meq PO BID 08/30/17 11/21/17 Gabapentin [Neurontin] 800 mg PO TID 09/27/17 11/21/17 Amox/Clav 875/125 [Augmentin 1 tab PO BID 11/21/17 11/22/17 875/125] Amoxicillin 875 mg PO BID 10 Days #20 tablet 11/22/17 - Allergies Allergies/Adverse Reactions: Allergies Allergy/AdvReac Type Severity Reaction Status Date / Time BRONWYN Inhibitors Allergy Emesis Verified 08/20/17 12:32 lisinopril Allergy "THROAT Verified 08/20/17 12:32 SWELLING" Review of Systems - Constitutional Constitutional: reports: Fatigue, Weight stable (225). denies: Fever, Chills - Eyes Eyes: reports: Vision loss, Other (worsening vision; more debilitating; scheduled for cataract surgery 12/03 & 12/17 feels this will improve his QOL significantly) - Ears, Nose & Throat Ears, Nose & Throat: reports: Hearing loss, Postnasal drainage, Dental decay - Cardiovascular Cardiovascular: reports: Edema (LE "wraps" to assist with management but often removed because of pain), Exertional dyspnea, Decr. exercise tolerance, Other ( has not followed through on cardiology appointment related to transportation; estranged from daughter again so "lost his ride"). denies: Chest pain - Respiratory Respiratory: reports: SOB at rest, SOB with exertion - Gastrointestinal Gastrointestinal: reports: Nausea (continues with baseline nausea; rarely vomits ; using ondansetron 1-2 x a day with control), Early satiety - Genitourinary Genitourinary: reports: Frequency - Musculoskeletal Musculoskeletal: reports: Back pain, Muscle aches, Stiffness, Limited range of motion, Muscle weakness, Assistive devices (uses cane; still participating in PT ; reports increase pain/discomfort in neck area exacerbated by positioning of head to see/walk/sleeping on couch) - Integumentary Integumentary: reports: Dryness, Other (reports weeping edema at incision line; "no open areas" ; but does have small area had "scratched" decline to take off wraps and examine; denies redness or pain/is going on AB for lungs; inst. follow through on plan to see PCP) - Neurological Neurological: reports: General weakness, Memory problems - Psychiatric Psychiatric: reports: Depression (reports some improvement; still wanting to see "counselor"), Anxiety (remains problematic for patient) - Endocrine Endocrine: reports: Hypothyroidism - Hematologic/Lymphatic Hematologic/Lymphatic: reports: Anemia, Recurrent infections (patient with infiltrates on CT; Dr. Castillo started on AB) - All Other Systems All Other Systems: reports: Reviewed and negative Physical Exam - Vital Signs Temperature: 36.7 C Pulse Rate: 96 Respiratory Rate: 18 Blood Pressure: 107/79 - Physical Exam General Appearance: positive: No acute distress, Alert Eyes Bilateral: positive: Normal inspection ENT: positive: No signs of dehydration Neck: positive: No JVD, Trachea midline Cardiovascular: positive: Regular rate & rhythm Respiratory: positive: Diminished in bases. negative: Wheezes, Rales, Rhonchi Abdomen: positive: Soft Skin: positive: Pallor, Other (wraps on lower extremities) Extremities: positive: Pedal edema (right greater than left;) Neurologic/Psychiatric: positive: Oriented x3, Mood/affect nml, Weakness Palliative Care - POLST Patient has POLST: No Pain: Location Tiredness/Fatigue: Moderate (4-6) Drowsiness/Sedation: Moderate (4-6) Nausea: Moderate (4-6) Depression: Moderate (4-6) Anxiety: Moderate (4-6) Dyspnea: Moderate (4-6) Anorexia: Mild (1-3) Sleep: Sleeps well Constipation: Yes, Opoid induced, Managed Feelings of wellbeing/Perceived Quality of Life: Poor, No change Performance Status: Patient does report continues to ambulate, with some improvement. He does spend most of his time in his couch and is quite sedentary. He also spends a greater part of the day sleeping. He does assist some with meal prep, is dependent for transportation, he is often disorganized in his thinking and his ability to follow through. - Palliative Care Discussion: Patient continues to perseverate that he did not understand his treatment was palliative in nature. He is encouraged for the results of this test, and is very much looking forward to his cataract surgery. He does feel this will improve his quality of life dramatically, and I did actually concur as far as the limitations it currently provides. We did approach the question again about DPOAE, he has not formalized any forms. He is currently estranged again from his daughter, she thinks I am a grumpy old man on was his comment. We did discuss by [place] law it would default to her if there was a need to make decisions. He feels he could still trust her to make the right decision though they are not talking. He remains quite skittish about talking about any kind of advanced directives are looking in the future for long-term care planning. We continue to develop rapport I do believe he can have those conversations when needed, patient is quite resistant to moving this topic forward. He does not want to be kept vegetable, nor have prolonged suffering or heroic measures. Results - Lab Results Lab results reviewed: Yes Impression and Recommendations - Palliative Care Impression: This is a 57-year-old gentleman with known metastatic adenocarcinoma of the lung currently receiving K to do. Is also known brain metastases status post CyberKnife. He continues to struggle with high symptom burden, and multiple stressors. Palliative care team providing support for pain and symptom management and anticipatory guidance as allowed Recommendations/Counseling Done: No medications prescribed are changed today. 1. Acute on chronic pain, multifactorial in origin. Patient has been titrated up, will make no further changes during the meantime. Patient has been instructed on opioid safety multiple times, particularly regarding concerns and combining alcohol, opioids, and benzodiazepines. Patient acknowledges risks, and able to verbalize back instructions. He does feel he is currently satisfied with his current regimen, he does understand he is not going to get any new early prescriptions and needs to pace himself. 2. Congestive heart failure. Patient continues to titrate torsemide carding to lower extremity edema, he is having some weeping and open areas, he has plan to follow-up with his PCP. His he has no transportation to cardiology at this point in time. We will continue to monitor his labs in the context of his heart failure as well as his cancer treatment. 3. Depression. Patient continues to experience multiple stressors both personal and financial. He has been offered various resources and support but given his disorganized thinking and follow-through has been difficult. 5. Advanced care planning patient remains ambivalent about putting his wishes to paper. He does have high anxiety regarding end-of-life conversation or planning. Does feel we have adequate rapport if needs to weigh further benefits of burdens regarding upcoming decisions. Agreed would continue to revisit it on a regular basis Time Spent: 30 minutes with greater than 50% of this done in counseling regarding pain and symptom management safety regarding use of narcotics and anticipatory guidance
== END 2017-11-21 15:07 | disposition home or self-care (01) ==
LOC: PC 15:06
PROVIDERS: ATTEND Nurse Practitioner Adult Health
DX: Z51.5 Encounter for palliative care (principal); R52 Pain, unspecified; G89.29 Other chronic pain; I50.9 Heart failure, unspecified; F32.9 Major depressive disorder, single episode, unspecified; C34.91 Malignant neoplasm of unspecified part of right bronchus or lung; C79.31 Secondary malignant neoplasm of brain; R60.0 Localized edema; K40.90 Unilateral inguinal hernia, without obstruction or gangrene, not specified as recurrent; J44.9 Chronic obstructive pulmonary disease, unspecified; G62.9 Polyneuropathy, unspecified; Z89.422 Acquired absence of other left toe(s); F10.20 Alcohol dependence, uncomplicated; F17.200 Nicotine dependence, unspecified, uncomplicated; H54.7 Unspecified visual loss; Z79.891 Long term (current) use of opiate analgesic; H91.90 Unspecified hearing loss, unspecified ear; K02.9 Dental caries, unspecified; R06.02 Shortness of breath; R11.0 Nausea; Z59.0 Homelessness
CPT/HCPCS: 99214

== ENCOUNTER 2017-11-23 10:41 | Outpatient (CLI) | payer MEDICAID | END 2017-11-23 10:42 | disposition critical access hospital (66) | LOC: EMS 10:41 | PROVIDERS: ATTEND Surgery | DX: R55 Syncope and collapse (principal); R11.2 Nausea with vomiting, unspecified; R42 Dizziness and giddiness; R41.82 Altered mental status, unspecified; W18.11XA Fall from or off toilet without subsequent striking against object, initial encounter; Y92.031 Bathroom in apartment as the place of occurrence of the external cause | CPT/HCPCS: A0425; A0427 ==

== ENCOUNTER 2017-11-23 11:10 | Emergency (ER) | payer MEDICAID ==
[2017-11-23] MEDS ORDERED: SODIUM CHLORIDE 0.9% 1,000 ML IV ONE (11:13)
--- NOTE | 2017-11-23 11:22 | ED Physician Documentation ---
PD HPI SYNCOPE - Stated complaint Stated Complaint: ALOC - History obtained from History obtained from: Patient, Family - History of Present Illness Witnessed: Witnessed Timing - onset: Today Duration: Seconds (40) Preceding symptoms: Diaphoresis, Light headed, Generalized weakness Associated symptoms: Dyspnea, Other (cough) Contributing factors: Other (pneumonia has been diagnosed yesterday) Similar symptoms before: Has not had sx before Recently seen: Clinic - Additional information Additional information: 57-year-old male who is undergoing treatment for lung cancer with keytruda has developed a secondary infection and was started on some amoxicillin/clav yesterday. He took a single dose which he vomited and this morning he was up on the commode feeling a bit weak diaphoretic and dizzy when he had a syncopal episode. He was out for about 40 seconds and he has recovered. Blood sugar at the scene was 112. Review of Systems Constitutional: reports: Chills, Fatigue, Sweats. denies: Fever Eyes: denies: Decreased vision Ears: denies: Ear pain Nose: denies: Rhinorrhea / runny nose, Congestion Throat: denies: Sore throat Cardiac: reports: Chest pain / pressure Respiratory: reports: Dyspnea, Cough GI: reports: Nausea, Vomiting. denies: Abdominal Pain : denies: Dysuria, Frequency Skin: denies: Rash Musculoskeletal: denies: Neck pain, Back pain, Extremity pain PD PAST MEDICAL HISTORY - Past Medical History Past Medical History: Yes Cardiovascular: Congestive heart failure, Hypertension, Coronary artery disease , Peripheral Vascular Disease Respiratory: COPD, Shortness of breath, Other Endocrine/Autoimmune: None GI: GERD, Chronic constipation, Diverticulitis : Benign prostate hypertrophy, Incontinence, Nocturia, Frequency HEENT: Chronic vision loss Psych: Anxiety Musculoskeletal: Chronic back pain, Other Derm: None - Past Surgical History Past Surgical History: Yes Ortho: Amputation Cardiovascular: Cardiac catheterization - Present Medications Home Medications: Ambulatory Orders Medication Instructions Recorded Confirmed Albuterol [Ventolin Hfa] 2 puffs INH Q4H PRN 11/11/14 11/21/17 Lorazepam [Ativan] 1 mg PO Q8HR PRN 09/23/15 11/21/17 Tamsulosin [Flomax] 0.4 mg PO BID 06/29/16 11/21/17 Esomeprazole Magnesium [Nexium 20 mg PO DAILY 08/10/16 11/21/17 24Hr] Oxycodone HCl [Oxycontin] 20 mg PO TID 07/04/17 11/21/17 Torsemide 20 mg PO BID MDD extra dose PRN 07/04/17 11/21/17 Oxycodone HCl 10 mg PO Q4HR PRN MDD 8 tabs 07/26/17 11/21/17 Vitamin B Complex 1 tab PO DAILY 07/26/17 11/21/17 Sennosides [Senna Lax] 2 tab PO BID 08/10/17 11/21/17 Lidocaine Ointment 5% [Xylocaine 1 appful TOP PRN PRN 08/20/17 11/21/17 Ointment 5%] Amlodipine Besylate [Amlodipine 10 mg PO DAILY 08/21/17 11/21/17 Besylate] Melatonin 5 mg PO DAILY PM 08/29/17 11/21/17 Magnesium Oxide [Magnesium] 400 mg PO BID 08/30/17 11/21/17 Potassium Chloride [K-Dur] 40 meq PO BID 08/30/17 11/21/17 Gabapentin [Neurontin] 800 mg PO TID 09/27/17 11/21/17 Amox/Clav 875/125 [Augmentin 1 tab PO BID 11/21/17 11/22/17 875/125] Amoxicillin 875 mg PO BID 10 Days #20 tablet 11/22/17 Azithromycin [Zithromax] 250 mg PO DAILY #6 tablet 11/23/17 Cefdinir 300 mg PO BID #20 capsule 11/23/17 Levetiracetam [Keppra] 500 mg PO BID #30 tablet 11/23/17 - Allergies Allergies/Adverse Reactions: Allergies Allergy/AdvReac Type Severity Reaction Status Date / Time BRONWYN Inhibitors Allergy Emesis Verified 08/20/17 12:32 lisinopril Allergy "THROAT Verified 08/20/17 12:32 SWELLING" - Social History Does the pt smoke?: Yes Smoking Status: Current every day smoker Does the pt drink ETOH?: Yes Does the pt have substance abuse?: No - Immunizations Immunizations are current?: Yes - POLST Patient has POLST: No POLST Status: Full Code PD ED PE NORMAL - Vitals Vital signs reviewed: Yes (tachy) - General General: Alert and oriented X 3, No acute distress, Well developed/nourished - HEENT HEENT: Atraumatic, PERRL, EOMI - Neck Neck: Supple, no meningeal sign - Cardiac Cardiac: No murmur, Other (tachy to 112) - Respiratory Respiratory: No respiratory distress, Other (mid lung field rhonchi on the right ) - Abdomen Abdomen: Soft, Non tender - Back Back: No CVA TTP, No spinal TTP - Derm Derm: Normal color, Warm and dry, No rash - Extremities Extremities: No deformity, No edema - Neuro Neuro: Alert and oriented X 3, No motor deficit, No sensory deficit, Normal speech Eye Opening: Spontaneous Motor: Obeys Commands Verbal: Oriented GCS Score: 15 - Psych Psych: Normal mood, Normal affect Results - Vitals Vitals: Vital Signs - 24 hr 11/23/17 11/23/17 11:11 15:09 Temperature 36.8 C Heart Rate 108 H 100 Respiratory 18 18 Rate Blood Pressure 120/73 123/85 H O2 Saturation 93 95 Oxygen O2 Source Room air - EKG (time done) 1113 Rate: Rate (enter#) (100) [place]: LAD Intervals: Prolonged GA, Prolonged QT Ischemia: ST depression (subtle laterally ) Compare to prior EKG: Changed from prior EKG (SPT 08-20-17 the rate has increased. ) Computer interpretation: Agree with computer - Labs Labs: Laboratory Tests 11/23/17 11/23/17 11/23/17 12:06 12:06 12:16 WBC 5.1 RBC 3.84 L Hgb 13.2 L Hct 37.8 L MCV 98.4 H MCH 34.3 H MCHC 34.8 RDW 15.9 H Plt Count 66 L MPV 8.6 Neut # (Auto) 3.8 Lymph # (Auto) 0.7 L [place] # (Auto) 0.3 Eos # (Auto) 0.1 Baso # (Auto) 0.1 Absolute Nucleated RBC 0.01 Nucleated RBC % 0.1 Sodium Potassium Chloride Carbon Dioxide Anion Gap BUN Creatinine Estimated GFR (MDRD) Glucose Lactic Acid Calcium Total Bilirubin AST ALT Alkaline Phosphatase Total Creatine Kinase 73 CK-MB (CK-2) 2.7 Troponin I Total Protein Albumin Globulin Albumin/Globulin Ratio Lipase Urine Color Urine Clarity Urine pH Ur Specific [place] Urine Protein Urine Glucose (UA) Urine Ketones Urine Occult Blood Urine Nitrite Urine Bilirubin Urine Urobilinogen Ur Leukocyte Esterase Ur Microscopic Review Urine Culture Comments 11/23/17 11/23/17 11/23/17 12:16 12:16 12:16 WBC RBC Hgb Hct MCV MCH MCHC RDW Plt Count MPV Neut # (Auto) Lymph # (Auto) [place] # (Auto) Eos # (Auto) Baso # (Auto) Absolute Nucleated RBC Nucleated RBC % Sodium 129 L Potassium 3.4 L Chloride 91 L Carbon Dioxide 28 Anion Gap 10.0 BUN 6 Creatinine 1.0 Estimated GFR (MDRD) 78 L Glucose 98 Lactic Acid 1.5 Calcium 8.7 Total Bilirubin 1.5 H AST 52 H ALT 13 Alkaline Phosphatase 116 Total Creatine Kinase CK-MB (CK-2) Troponin I 0.05 Total Protein 7.5 Albumin 3.7 Globulin 3.8 Albumin/Globulin Ratio 1.0 Lipase 41 Urine Color Urine Clarity Urine pH Ur Specific [place] Urine Protein Urine Glucose (UA) Urine Ketones Urine Occult Blood Urine Nitrite Urine Bilirubin Urine Urobilinogen Ur Leukocyte Esterase Ur Microscopic Review Urine Culture Comments 11/23/17 12:47 WBC RBC Hgb Hct MCV MCH MCHC RDW Plt Count MPV Neut # (Auto) Lymph # (Auto) [place] # (Auto) Eos # (Auto) Baso # (Auto) Absolute Nucleated RBC Nucleated RBC % Sodium Potassium Chloride Carbon Dioxide Anion Gap BUN Creatinine Estimated GFR (MDRD) Glucose Lactic Acid Calcium Total Bilirubin AST ALT Alkaline Phosphatase Total Creatine Kinase CK-MB (CK-2) Troponin I Total Protein Albumin Globulin Albumin/Globulin Ratio Lipase Urine Color YELLOW Urine Clarity CLEAR Urine pH 6.5 Ur Specific [place] 1.010 Urine Protein NEGATIVE Urine Glucose (UA) NEGATIVE Urine Ketones NEGATIVE Urine Occult Blood NEGATIVE Urine Nitrite NEGATIVE Urine Bilirubin NEGATIVE Urine Urobilinogen 0.2 (NORMAL) Ur Leukocyte Esterase NEGATIVE Ur Microscopic Review NOT INDICATED Urine Culture Comments NOT INDICATED - Rads (name of study) 2 view chest Radiology: Prelim report reviewed (Impression: 1. Mild right middle lobe opacification which could be related to developing pneumonia. Notably, recent CT suggested developing nodular opacities in this area. 2. Grossly stable right midlung focal opacification correlating with masslike consolidation seen on recent CT.), EMP read indepedently, See rad report CT head without Radiology: Prelim report reviewed (Impression: 1. Punctate hyperdense focus in low density consistent with gliosis at prior tumor resection site at the right frontal convexity unchanged. 2. Mild patchy hypodensity elsewhere in the bilateral cerebral white matter as before which may reflect chronic small vessel ischemic change. 3. No new low or high-density lesions no mass-effect.), EMP read indepedently, See rad report Procedures - IVC sono (time) 1117 Bedside IVC sono: IVC measures (cm) (1.34), Dehydration (est 1 liter deficit) PD MEDICAL DECISION MAKING - ED course Complexity details: reviewed results, re-evaluated patient, considered differential, d/w patient, d/w family ED course: 57-year-old male with metastatic lung cancer on ketruda has developed cough and congestion, has pneumonia on chest x-ray and CT scan. He was started on Augmentin yesterday, has taken a single dose, and had a syncopal episode this morning. He is given a dose of Rocephin here in the emergency department and a liter of saline. He does have good oxygen saturation. Late in the visit the patient describes the incident in more detail and indicates that his left leg straightened out and spasmed followed by syncope and this happened once while on the couch and once while on the commode. He is wondering about the possibility of seizure and this does seem entirely possible given the additional history. A CT scan is obtained of the head which does not demonstrate any obvious progression of disease. He is administered 10 mg of dexamethasone and we will put him back on Keppra 500 mg twice daily. Departure - Departure Disposition: 01 Home, Self Care Clinical Impression: Seizure Pneumonia Qualifiers: Pneumonia type: due to unspecified organism Laterality: right Lung location: middle lobe of lung Qualified Code(s): J18.1 - Lobar pneumonia, unspecified organism Condition: Stable Instructions: ED Pneumonia Adult, ED Seizure New Onset Unk Cause Follow-Up: Yessica Patel ARNP [Primary Care Provider] - Prescriptions: Azithromycin [Zithromax] 250 mg PO DAILY #6 tablet Cefdinir 300 mg PO BID #20 capsule Levetiracetam [Keppra] 500 mg PO BID #30 tablet Comments: Today it appears that you have a pneumonia in her right lung and it appears you are not tolerating the Augmentin. We have given you a dose of Rocephin intravenously here today and I recommend you start on azithromycin and switch the Augmentin to Cefdinidr. The episode this morning could represent a seizure and we have restarted your Keppra.
--- NOTE | 2017-11-23 12:12 | XRAY Report ---
EXAM: CHEST RADIOGRAPHY EXAM DATE: 11/23/2017 11:44 AM. CLINICAL HISTORY: Cough and syncope. COMPARISON: 08/29/2017. 11/15/2017. TECHNIQUE: 2 views. FINDINGS: Lungs/Pleura: As before, there is stable mild right midlung focal opacification. There is potential n ew right middle lobe airspace disease seen, nonspecific. The left lung is clear. There is no effusion , pneumothorax, or gastric congestion. Mediastinum: Heart and mediastinal contours are unremarkable. Other: None. IMPRESSION: 1. Mild right middle lobe opacification which could be related to developing pneumonia. Notably, rece nt CT suggested developing nodular opacities in this area. 2. Grossly stable right midlung focal opacification correlating with masslike consolidation seen on r ecent CT. [facility] Referring Provider Line: [phone] SITE ID: [id number]
--- NOTE | 2017-11-23 12:12 | XRAY Preliminary Report ---
Exam: XR CHEST 2 VIEW X-RAY IMPRESSION: 1. Mild right middle lobe opacification which could be related to developing pneumonia. Notably, rece nt CT suggested developing nodular opacities in this area. 2. Grossly stable right midlung focal opacification correlating with masslike consolidation seen on r ecent CT. [facility] SITE ID: [id number]
[2017-11-23] MEDS ORDERED: cefTRIAXone 1 GM in SODIUM CHLORIDE 0.9% MINIBAG 100 ML IV STA (12:16)
[2017-11-23 12:27] LABS: BASOPHILS # (AUTO) 0.1 10^3/uL (0.0-0.1); BASOPHILS % (AUTO) 1.1 %; EOSINOPHILS # (AUTO) 0.1 10^3/uL (0.0-0.7); EOSINOPHILS % (AUTO) 2.9 %; HGB - HEMOGLOBIN 13.2 g/dL (14.0-18.0); LYMPHOCYTES # (AUTO) 0.7 10^3/uL (1.5-3.5); LYMPHOCYTES % (AUTO) 13.9 %; MEAN CORPUSCULAR HEMOGLOBIN 34.3 pg (27.0-31.0); MEAN CORPUSCULAR HGB CONC 34.8 g/dL (32.0-36.0); MEAN CORPUSCULAR VOLUME 98.4 fL (80.0-94.0); MEAN PLATELET VOLUME 8.6 fL (7.4-11.4); MONOCYTES # (AUTO) 0.3 10^3/uL (0.0-1.0); MONOCYTES % (AUTO) 6.6 %; NEUTROPHILS # (AUTO) 3.8 10^3/uL (1.5-6.6); NEUTROPHILS % (AUTO) 75.5 %; PLT - PLATELET COUNT 66 10^3/uL (130-450); RED BLOOD COUNT 3.84 10^6/uL (4.70-6.10); RED CELL DISTRIBUTION WIDTH 15.9 % (12.0-15.0); WHITE BLOOD COUNT 5.1 x10^3/uL (4.8-10.8)
[2017-11-23 12:43] LABS: ALBUMIN 3.7 g/dL (3.2-5.5); BILIRUBIN,TOTAL 1.5 mg/dL (0.2-1.0); CALCIUM 8.7 mg/dL (8.5-10.3); TOTAL PROTEIN 7.5 g/dL (6.7-8.2)
[2017-11-23 12:59] LABS: BILIRUBIN,URINE NEGATIVE (NEGATIVE); GLUCOSE, URINE (UA) NEGATIVE (NEGATIVE); KETONES,URINE (UA) NEGATIVE (NEGATIVE); LEUKOCYTE ESTERASE, URINE NEGATIVE (NEGATIVE); NITRITE,URINE NEGATIVE (NEGATIVE); OCCULT BLOOD,URINE NEGATIVE (NEGATIVE); PH,URINE 6.5 PH (5.0-7.5); PROTEIN,URINE NEGATIVE (NEGATIVE); UROBILINOGEN,URINE 0.2 (NORMAL) E.U./dL (NORMAL)
[2017-11-23 13:02] LABS: CLARITY,URINE CLEAR (CLEAR)
--- NOTE | 2017-11-23 14:55 | CT Report ---
EXAM: CT HEAD EXAM DATE: 11/23/2017 01:58 PM. CLINICAL HISTORY: Seizure, mets. History of lung cancer. COMPARISON: 08/20/2017, 08/02/2017. MRI brain 12/17/2014. TECHNIQUE: Multiaxial CT images were obtained from the foramen magnum to the vertex. Reformats: Coron al. IV contrast: None. In accordance with CT protocol optimization, one or more of the following dose reduction techniques w ere utilized for this exam: automated exposure control, adjustment of mA and/or KV based on patient s ize, or use of iterative reconstructive technique. FINDINGS: Parenchyma: There has been no change in the appearance of the right frontal convexity tumor resection site with moderate subcortical hypodensity and a tiny 4 mm hyperdense focus. There also is mild patc hy hypodensity elsewhere in the bilateral cerebral white matter greatest in the left parietal lobe, u nchanged, without mass effect, suggesting chronic small vessel ischemic change. No new low or high-de nsity lesions. No mass effect. Nielson-white differentiation is intact. Extraaxial Spaces: Mild generalized sulcal prominence. No abnormal fluid collections. No subdural or epidural collections identified. Ventricles: Mild generalized ventriculomegaly, unchanged. Sinuses and Orbits: Imaged paranasal sinuses, orbits, and mastoids show no significant abnormality. Bones: Right frontoparietal craniotomy, as before. Other: Minimal calcification in bilateral cavernous internal carotid arteries. IMPRESSION: 1. Punctate hyperdense focus and low density consistent with gliosis at prior tumor resection site at the right frontal convexity, unchanged. 2. Mild patchy hypodensity elsewhere in the bilateral cerebral white matter as before which may refle ct chronic small vessel ischemic change. 3. No new low or high-density lesions. No mass effect. [facility] Referring Provider Line: [phone] SITE ID: [id number]
[2017-11-23] MEDS ORDERED: levETIRAcetam 250 MG TABLET PO STA (15:01)
[2017-11-23] MEDS ORDERED: DEXAMETHASONE 10 MG/ML VIAL PO STA (15:01)
[2017-11-23] MEDS ORDERED: CHERRY SYRUP 10 ML UDC PO ONE (15:17)
[2017-11-23 17:04] VITALS: BP 127/76
== END 2017-11-23 16:54 | disposition home or self-care (01) ==
LOC: ED 11:10
DX: R56.9 Unspecified convulsions (principal); J18.1 Lobar pneumonia, unspecified organism; R94.31 Abnormal electrocardiogram [ECG] [EKG]; I11.0 Hypertensive heart disease with heart failure; I50.9 Heart failure, unspecified; I73.9 Peripheral vascular disease, unspecified; F17.200 Nicotine dependence, unspecified, uncomplicated
CPT/HCPCS: 36415; 70450; 71046; 80053; 81003; 82550; 82553; 83605; 83690; 84484; 85025; 87040; 93005; 96361; 96365; 96366; 99284; A9270; 81001; 87086

== ENCOUNTER 2017-12-12 08:55 | Outpatient (CLI) | payer MEDICAID ==
--- NOTE | 2017-12-12 18:32 | XRAY Report ---
Procedure Date: 12/12/2017 Accession Number: [id number] / [id number] Procedure: XR - Chest 2 View X-Ray CPT Code: 47674 FULL RESULT: EXAM: CHEST RADIOGRAPHY EXAM DATE: 12/12/2017 09:20 AM. CLINICAL HISTORY: Thrombocytopenia, lung cancer. COMPARISON: Radiographs 11/23/[address] 10/26/2017. TECHNIQUE: 2 views. FINDINGS: Lungs/Pleura: Improved aeration of the right middle lobe with decreased airspace opacities. Some patchy and linear opacities persist in this region. Focal right midlung opacity is similar. Left lung is clear. No pleural effusion or pneumothorax. Mediastinum: Heart and mediastinal contours are unremarkable. Other: None. IMPRESSION: 1. Decreased airspace opacities right middle lobe, suggestive of improving pneumonia. Some patchy and linear opacities persist. 2. Masslike consolidation right midlung, similar. [facility]
== END 2017-12-12 08:56 | disposition home or self-care (01) ==
LOC: DI 08:55
PROVIDERS: ATTEND Internal Medicine
DX: D69.6 Thrombocytopenia, unspecified (principal); C34.90 Malignant neoplasm of unspecified part of unspecified bronchus or lung; R91.8 Other nonspecific abnormal finding of lung field
CPT/HCPCS: 71046

== ENCOUNTER 2017-12-17 12:02 | Outpatient (CLI) | payer MEDICAID | END 2017-12-17 12:03 | disposition critical access hospital (66) | LOC: EMS 12:02 | PROVIDERS: ATTEND Surgery | DX: R53.81 Other malaise (principal); R53.1 Weakness; R46.4 Slowness and poor responsiveness | CPT/HCPCS: A0425; A0429 ==

== ENCOUNTER 2017-12-17 12:21 | Emergency (ER) | payer MEDICAID ==
[2017-12-17] MEDS ORDERED: SODIUM CHLORIDE 0.9% 1,000 ML IV ONE (13:24)
--- NOTE | 2017-12-17 13:29 | ED Physician Documentation ---
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 This was originally diagnosed in 2015. He is in palliative care but not hospice. Over the last 3 days he is declined with increased cough, generalized weakness. He is basically sleeping all the time. He ran out of his pain medications and he is in pain all over. He is also been drinking alcohol.) Review of Systems Ten Systems: 10 systems reviewed and negative Constitutional: reports: Chills. denies: Fever Nose: denies: Rhinorrhea / runny nose, Congestion Cardiac: denies: Chest pain / pressure, Palpitations Respiratory: reports: Dyspnea, Cough GI: reports: Diarrhea (once today, incontinent). denies: Abdominal Pain : denies: Dysuria PD PAST MEDICAL HISTORY - Past Medical History Cardiovascular: Congestive heart failure, Hypertension, Coronary artery disease , Peripheral Vascular Disease Respiratory: COPD, Shortness of breath, Other Endocrine/Autoimmune: None GI: GERD, Chronic constipation, Diverticulitis : Benign prostate hypertrophy, Incontinence, Nocturia, Frequency HEENT: Chronic vision loss Psych: Anxiety Musculoskeletal: Chronic back pain, Other Derm: None - Past Surgical History Past Surgical History: Yes Ortho: Amputation Cardiovascular: Cardiac catheterization - Present Medications Home Medications: Ambulatory Orders Medication Instructions Recorded Confirmed Albuterol [Ventolin Hfa] 2 puffs INH Q4H PRN 11/11/14 12/12/17 Lorazepam [Ativan] 1 mg PO Q8HR PRN 09/23/15 12/12/17 Tamsulosin [Flomax] 0.4 mg PO BID 06/29/16 12/12/17 Esomeprazole Magnesium [Nexium 20 mg PO DAILY 08/10/16 12/12/17 24Hr] Oxycodone HCl [Oxycontin] 20 mg PO TID 07/04/17 12/12/17 Torsemide 20 mg PO BID MDD extra dose PRN 07/04/17 12/12/17 Oxycodone HCl 10 mg PO Q4HR PRN MDD 8 tabs 07/26/17 12/12/17 Vitamin B Complex 1 tab PO DAILY 07/26/17 12/12/17 Sennosides [Senna Lax] 2 tab PO BID 08/10/17 12/12/17 Lidocaine Ointment 5% [Xylocaine 1 appful TOP PRN PRN 08/20/17 12/12/17 Ointment 5%] Amlodipine Besylate [Amlodipine 10 mg PO DAILY 08/21/17 12/12/17 Besylate] Melatonin 5 mg PO DAILY PM 08/29/17 12/12/17 Magnesium Oxide [Magnesium] 400 mg PO BID 08/30/17 12/12/17 Potassium Chloride [K-Dur] 40 meq PO BID 08/30/17 12/12/17 Gabapentin [Neurontin] 800 mg PO TID 09/27/17 12/12/17 Amoxicillin 875 mg PO BID 10 Days #20 tablet 11/22/17 Azithromycin [Zithromax] 250 mg PO DAILY #6 tablet 11/23/17 12/12/17 Cefdinir 300 mg PO BID #20 capsule 11/23/17 12/12/17 Levetiracetam [Keppra] 500 mg PO BID #30 tablet 11/23/17 12/12/17 Cephalexin [Keflex] 500 mg PO QID #40 capsule 12/17/17 - Allergies Allergies/Adverse Reactions: Allergies Allergy/AdvReac Type Severity Reaction Status Date / Time BRONWYN Inhibitors Allergy Emesis Verified 12/17/17 12:29 amoxicillin [From Augmentin] Allergy Emesis Verified 12/17/17 12:29 clavulanic acid Allergy Emesis Verified 12/17/17 12:29 [From Augmentin] lisinopril Allergy "THROAT Verified 12/17/17 12:29 SWELLING" - Social History Does the pt smoke?: Yes Smoking Status: Current every day smoker Does the pt drink ETOH?: Yes Does the pt have substance abuse?: No - Family History Family history: reports: Non contributory - Immunizations Immunizations are current?: Yes - POLST Patient has POLST: No POLST Status: Full Code PD ED PE NORMAL - Vitals Vital signs reviewed: Yes - General General: Other (He is sleepy but easily arousable and answers questions and follows commands appropriately.) - HEENT HEENT: PERRL, EOMI - Neck Neck: Supple, no meningeal sign, No bony TTP - Cardiac Cardiac: RRR, No murmur - Respiratory Respiratory: Other (Rhonchorous throughout) - Abdomen Abdomen: Soft, Non tender - Back Back: No CVA TTP, No spinal TTP - Derm Derm: Normal color, Warm and dry - Extremities Extremities: No edema, No calf tenderness / cord, Other (hE IS s/p AMPUTATION OF lEFT 2ND-4TH TOES. There is a little bit of open area with purulent material but no cellulitis near where the second toe was.) - Neuro Neuro: Alert and oriented X 3, Normal speech - Psych Psych: Normal mood, Normal affect Results - Vitals Vitals: Vital Signs - 24 hr 12/17/17 12:24 Temperature 35.9 C L Heart Rate 86 Respiratory 18 Rate Blood Pressure 101/68 O2 Saturation 97 Oxygen O2 Source Room air - Labs Labs: Laboratory Tests 12/17/17 12/17/17 12/17/17 13:38 13:38 13:38 WBC 3.3 L RBC 3.76 L Hgb 13.2 L Hct 37.9 L MCV 100.8 H MCH 35.1 H MCHC 34.8 RDW 17.3 H Plt Count 65 L MPV 8.1 Neut # (Auto) 1.8 Lymph # (Auto) 1.0 L [place] # (Auto) 0.3 Eos # (Auto) 0.1 Baso # (Auto) 0.0 Absolute Nucleated RBC 0.00 Nucleated RBC % 0.1 Sodium 131 L Potassium 2.7 L Chloride 90 L Carbon Dioxide 29 Anion Gap 12.0 BUN 5 L Creatinine 0.7 Estimated GFR (MDRD) 117 Glucose 95 Calcium 8.1 L Magnesium 1.6 L Total Bilirubin 1.0 AST 87 H ALT 19 Alkaline Phosphatase 125 H Total Creatine Kinase 84 Troponin I < 0.04 Total Protein 7.3 Albumin 3.5 Globulin 3.8 Albumin/Globulin Ratio 0.9 L Lipase 56 H Ethyl Alcohol 424.1 - Rads (name of study) 1v chest Radiology: EMP read contemporaneously (Stable irregular densities in the right lung base.) PD MEDICAL DECISION MAKING - ED course ED course: 57-year-old gentleman presents with diffuse weakness being out of his pain medication. He is found to have some electrolyte abnormalities which are repleted both IV and orally. It seems the main issue would be significant alcohol intoxication. The family was at the bedside and they will try to keep alcohol away from him. He says he is just drinking because of the pain and being out of his pain medications. He declined to go to detox. I also spoke with palliative care nurse, they will take care of any pain medications. - Sepsis Event Vital Signs: Vital Signs - 24 hr 12/17/17 12:24 Temperature 35.9 C L Heart Rate 86 Respiratory 18 Rate Blood Pressure 101/68 O2 Saturation 97 Oxygen O2 Source Room air Departure - Departure Disposition: Home, Self Care Clinical Impression: Tobacco use disorder, continuous, History of lung cancer, Brain metastases, Dehydration, Hypokalemia Alcohol intoxication Qualifiers: Complication of substance-induced condition: uncomplicated Qualified Code(s): F10.920 - Alcohol use, unspecified with intoxication, uncomplicated Condition: Stable Record reviewed to determine appropriate education?: Yes Instructions: Hypokalemia Dc, ED Alcohol Intoxication Prescriptions: Cephalexin [Keflex] 500 mg PO QID #40 capsule Comments: SLOW DOWN THE DRINKING!!!!! Call your doctor to arrange a follow-up appointment, make the next available appointment. In the interim, return anytime if worse or if new symptoms develop.
--- NOTE | 2017-12-17 14:02 | XRAY Report ---
Procedure Date: 12/17/2017 Accession Number: [id number] / [id number] Procedure: XR - Chest 1 View X-Ray CPT Code: 64270 FULL RESULT: EXAM: CHEST RADIOGRAPHY EXAM DATE: 12/17/2017 01:34 PM. CLINICAL HISTORY: Lung cancer. Cough, weak for one day. COMPARISON: 12/12/2017. TECHNIQUE: 1 view. FINDINGS: Lungs/Pleura: Stable irregular horizontal density right mid lung. Stable interstitial infiltrate or fibrosis right medial lung base. Left lung is clear. No effusion, vascular congestion, nor pneumothorax. Mediastinum: Within exam limitations, the cardiomediastinal contour is normal. Other: Old left seventh rib fracture. IMPRESSION: Stable irregular densities/infiltrate right lung base. [facility]
[2017-12-17 14:06] LABS: BASOPHILS % (AUTO) 0.8 %; EOSINOPHILS # (AUTO) 0.1 10^3/uL (0.0-0.7); EOSINOPHILS % (AUTO) 2.9 %; HGB - HEMOGLOBIN 13.2 g/dL (14.0-18.0); LYMPHOCYTES % (AUTO) 31.9 %; MEAN CORPUSCULAR HEMOGLOBIN 35.1 pg (27.0-31.0); MEAN CORPUSCULAR HGB CONC 34.8 g/dL (32.0-36.0); MEAN CORPUSCULAR VOLUME 100.8 fL (80.0-94.0); MEAN PLATELET VOLUME 8.1 fL (7.4-11.4); MONOCYTES # (AUTO) 0.3 10^3/uL (0.0-1.0); MONOCYTES % (AUTO) 10.6 %; NEUTROPHILS # (AUTO) 1.8 10^3/uL (1.5-6.6); NEUTROPHILS % (AUTO) 53.8 %; PLT - PLATELET COUNT 65 10^3/uL (130-450); RED BLOOD COUNT 3.76 10^6/uL (4.70-6.10); RED CELL DISTRIBUTION WIDTH 17.3 % (12.0-15.0); WHITE BLOOD COUNT 3.3 x10^3/uL (4.8-10.8)
[2017-12-17] MEDS ORDERED: oxyCODONE 5 MG TABLET PO STA (14:13)
[2017-12-17 14:19] LABS: ALBUMIN 3.5 g/dL (3.2-5.5); ALBUMIN/GLOBULIN RATIO 0.9 (1.0-2.2); CALCIUM 8.1 mg/dL (8.5-10.3); CREATININE 0.7 mg/dL (0.6-1.2); MAGNESIUM 1.6 mg/dL (1.7-2.8); TOTAL PROTEIN 7.3 g/dL (6.7-8.2)
[2017-12-17] MEDS ORDERED: POTASSIUM CHLOR 10 MEQ/100 ML 10 MEQ/100 ML BAG IV ONE (14:35)
[2017-12-17] MEDS ORDERED: POTASSIUM BICARB 25 MEQ TABLET PO STA (14:35)
[2017-12-17] MEDS ORDERED: MAGNESIUM SULFATE 2 GRAM 2 GM/50 ML BAG IV ONE (14:35)
[2017-12-17] MEDS ORDERED: cephALEXin 250 MG CAPSULE PO STA (14:48)
[2017-12-17 16:18] VITALS: BP 103/68
== END 2017-12-17 16:32 | disposition home or self-care (01) ==
LOC: EDUNIT# → EDBD → ED 12:21
DX: E86.0 Dehydration (principal); E87.6 Hypokalemia; F10.920 Alcohol use, unspecified with intoxication, uncomplicated; C34.90 Malignant neoplasm of unspecified part of unspecified bronchus or lung; C79.31 Secondary malignant neoplasm of brain; F17.210 Nicotine dependence, cigarettes, uncomplicated; I11.0 Hypertensive heart disease with heart failure; I50.9 Heart failure, unspecified; I25.10 Atherosclerotic heart disease of native coronary artery without angina pectoris; J44.9 Chronic obstructive pulmonary disease, unspecified
CPT/HCPCS: 36415; 71045; 80053; 80320; 82550; 83690; 83735; 84484; 85025; 96361; 96365; 96367; 99283; 99284; A9270

== ENCOUNTER 2017-12-20 17:54 | Outpatient (CLI) | payer MEDICAID ==
--- NOTE | 2017-12-20 20:39 | CONSULTATION NOTE ---
Palliative Care Follow Up - Referral Referring Provider: Dr. Jodee Castillo Time of Visit: [id number] Referral setting: Home - Information Sources Records reviewed: RN notes reviewed, Previous records reviewed History/Review of Systems obtained from: Patient Exam limitations: Clinical condition - History of Present Illness Update Brief HPI Update: This is a feisty 57-year-old gentleman with adenocarcinoma of the lung, with known brain metastases status post [facility]Kn[facility] at [facility] 02/2017. Recently restarted on Keppra for seizures, MRI 12/11 did not show progressive dx. He is currently receiving pembrolizumab, has received 6 cycles, but has been on hold related to his ongoing health issues. Patient does struggle with addiction disorder, he is a chronic alcoholic, continues to smoke, and has difficulty with medication adherence. Unfortunately related to his social situation, he also has difficulty with adhering to his treatment plan, and now has missed both his surgeries for his cataracts, which are an important issue for him related to his quality of life. His latest mishap, as he ran out of his pain pills early, and over the weekend had a drinking binge, unfortunately it is unclear the series of events as far as teasing out etiology. He did have severe nausea and vomiting, diarrhea, and dehydration which resulted in altered mental status and electrolyte and balances and an admission to the ED on Sunday. He feels it is not related to withdrawal symptoms, as he has consistently run out before, and does not believe he "drank that much" that the alcohol reading must be wrong.He was restarted on antibiotics on Sunday, again given his social situation, I have pick those up and delivered him to her home visit today. I find him somewhat pale, though he is clear, alert and oriented today. He does report he is back to his baseline beer 1-2 daily. He has been drinking adequate amounts of water, he has been out of his OxyContin, but is taking his oxycodone and gabapentin with moderate relief. He reports his exacerbation of pain is mostly joint and muscle to his shoulders elbows and hands as well as his baseline severe peripheral neuropathy. He is only been able to eat small amounts, has had no further vomiting. Reports the diarrhea is slowing down, but is fearful of getting constipated is at his his usual norm. He reports he has been taking an extra potassium over the last few days, patient takes his pills from bottles, he has his own system, unclear exactly his adherence and accuracy. Social History - Living Situation Living arrangement: Other (He continues to live on his sister's couch, he has a friend Radha, who is coming from [place]. They are looking at moving into an apartment in [place], but finances are a huge barrier to this. She has significant health problems as well, and is an alcoholic. Transportation and support will continue to be a problem. But he does feel it would be an improvement over his current situation.) Medications/Allergies - Medications Home Medications: Ambulatory Orders Medication Instructions Recorded Confirmed Albuterol [Ventolin Hfa] 2 puffs INH Q4H PRN 11/11/14 12/20/17 Lorazepam [Ativan] 1 mg PO Q8HR PRN 09/23/15 12/20/17 Tamsulosin [Flomax] 0.4 mg PO BID 06/29/16 12/20/17 Esomeprazole Magnesium [Nexium 20 mg PO DAILY 08/10/16 12/20/17 24Hr] Oxycodone HCl [Oxycontin] 20 mg PO TID 07/04/17 12/20/17 Torsemide 20 mg PO BID MDD extra dose PRN 07/04/17 12/20/17 Oxycodone HCl 10 - 20 mg PO Q4HR PRN MDD 8 tabs 07/26/17 12/20/17 Vitamin B Complex 1 tab PO DAILY 07/26/17 12/20/17 Sennosides [Senna Lax] 2 tab PO BID 08/10/17 12/20/17 Lidocaine Ointment 5% [Xylocaine 1 appful TOP PRN PRN 08/20/17 12/20/17 Ointment 5%] Amlodipine Besylate [Amlodipine 10 mg PO DAILY 08/21/17 12/20/17 Besylate] Melatonin 5 mg PO DAILY PM 08/29/17 12/20/17 Magnesium Oxide [Magnesium] 400 mg PO BID 08/30/17 12/20/17 Potassium Chloride [K-Dur] 40 meq PO BID 08/30/17 12/20/17 Gabapentin [Neurontin] 800 mg PO TID 09/27/17 12/20/17 Levetiracetam [Keppra] 500 mg PO BID #30 tablet 11/23/17 12/20/17 Cephalexin [Keflex] 500 mg PO QID 12/19/17 12/20/17 Loperamide [Imodium] 2 mg PO Q4HR PRN 12/20/17 12/20/17 Ondansetron [Ondansetron Odt] 4 mg SL Q4HR PRN 12/20/17 12/20/17 - Allergies Allergies/Adverse Reactions: Allergies Allergy/AdvReac Type Severity Reaction Status Date / Time BRONWYN Inhibitors Allergy Emesis Verified 12/17/17 12:29 amoxicillin [From Augmentin] Allergy Emesis Verified 12/17/17 12:29 clavulanic acid Allergy Emesis Verified 12/17/17 12:29 [From Augmentin] lisinopril Allergy "THROAT Verified 12/17/17 12:29 SWELLING" Review of Systems - Constitutional Constitutional: reports: Fatigue, Malaise, Weakness, Poor appetite - Eyes Eyes: reports: Vision loss (missed appointments for cataract surgery; almost blind) - Ears, Nose & Throat Ears, Nose & Throat: reports: Other (poor dentition) - Cardiovascular Cardiovascular: reports: Edema, Decr. exercise tolerance. denies: Chest pain - Respiratory Respiratory: reports: Cough (no increase), SOB with exertion. denies: SOB at rest - Gastrointestinal Gastrointestinal: reports: Abdominal pain (exacerbation of right groin pain with coughing/ known hernia), Diarrhea (only loose stools a couple of times today), Nausea (improved/no vomiting), Poor appetite - Genitourinary Genitourinary: reports: Frequency - Musculoskeletal Musculoskeletal: reports: Back pain, Muscle aches, Stiffness, Limited range of motion, Muscle weakness, Other (difficulty walking with increased weakness last few days) - Integumentary Integumentary: reports: Other (incision left foot open to air/has not done dressings/can't find supplies in home) - Neurological Neurological: reports: General weakness, Memory problems, Seizures (no further seizures) - Psychiatric Psychiatric: reports: Depression, Anxiety - Hematologic/Lymphatic Hematologic/Lymphatic: reports: Anemia, Recurrent infections (recently treated for pnemonia; unclear why on Keflex from ED-patient said it was for his " gastric virus";) - All Other Systems All Other Systems: reports: Reviewed and negative Physical Exam - Vital Signs Temperature: 98.4 C Pulse Rate: 54 Respiratory Rate: 18 O2 Saturation: 99 (ra @ rest) Blood Pressure: 92/64 - Physical Exam General Appearance: positive: Alert, Mild distress Eyes Bilateral: positive: Normal inspection ENT: positive: No signs of dehydration Neck: positive: No JVD, Trachea midline Cardiovascular: positive: Regular rate & rhythm Respiratory: positive: Diminished in bases (right greater than left). negative : Wheezes, Rales, Rhonchi Abdomen: positive: Soft, Tenderness Skin: positive: Pallor, Dryness, Rash (upper arms), Wound (dried crusted surgical incision; no erythema or redness; great nail with dried yellow/ blackend toenail with drainage at nailbed; dressings off) Extremities: positive: Pedal edema (mild compared to norm; 1+ up to mid calf) Neurologic/Psychiatric: positive: Oriented x3, Mood/affect nml, Weakness Palliative Care - POLST Patient has POLST: No Pain: Pain unchanged, Location (Pain multifactorial in origin, does have some central chest pain, somewhat diffuse. Reports pain in multiple joints, this is been exacerbated, and has lower extremity peripheral neuropathy pain which is his most significant distress. His prescribed regimen is OxyContin 20 mg 3 times daily, with oxycodone 10 mg not to exceed 8 tabs in 24 hours. He is also on gabapentin 800 mg 3 times daily.) Tiredness/Fatigue: Severe (7-10) Drowsiness/Sedation: Moderate (4-6) Nausea: Mild (1-3) Depression: Moderate (4-6) Anxiety: Moderate (4-6) Dyspnea: Mild (1-3) Anorexia: Moderate (4-6) Sleep: Variable sleep pattern Constipation: Yes, Opoid induced, Managed, Comment (currently with acute illness struggling with diarrhea) Feelings of wellbeing/Perceived Quality of Life: Fair, Acceptable, No change, Comment (most of his QOL are social stressors currently) Performance Status: Patient had had some improvement with his functional status, today presents is quite weak and shaky, is able to ambulate short distances, but difficulty from getting from sitting to standing and has been very sedentary over the last couple weeks. - Palliative Care Discussion: Revisited with patient continued concerns regarding his struggles with being compliant with his treatment plans, doctor's appointments, and lifestyle choices. Patient does admit to be feeling quite overwhelmed, and anxious. Has very little social support and resources. Is a long-term history of dealing with his alcoholism, He is very fearful of dying of his cancer, reviewed his current lifestyle choices are putting him at more risk for end-of-life event. In reviewing his continued goals of care, patient is still quite clear he would accept CPR, but would not want to be on a ventilator or have his life extended if he were not to return back to some level of independence and functioning. He is somewhat terrified to explore further if he were to experience any ongoing decline related to his cancer, he remains hopeful that things will improve when he gets to his own place and has more control over his environment. Results - Lab Results Lab results reviewed: Yes Impression and Recommendations - Palliative Care Impression: This is a 57-year-old gentleman with known metastatic adenocarcinoma of the lung , currently receiving immunotherapy. He does have known brain metastases status post CyberKnife, recent MRI shows no progression of disease despite recurrence of his seizures. Patient continues to struggle with high symptom burden, multiple social and financial stressors, and his underlying addiction issues. Palliative care team continue to provide support and anticipatory guidance. Recommendations/Counseling Done: 1. Acute on chronic pain, multifactorial in origin. Patient is on gabapentin 800 mg 3 times daily, OxyContin 20 mg 3 times daily, and oxycodone 10 mg not to exceed 8 tabs in 24 hours. Patient continues to struggle with pacing his prescriptions, we did discuss in the context of this I was not going to increase his opioids, as most of his acute pain is peripheral neuropathy. We reviewed again concerns regarding safety, safe storage, and strategies to remain compliant with his current regimen. Patient able to verbalize risks and concerns, no changes made to current regimen. 2. Hypokalemia. Most likely related to his diarrhea and recent drinking binge. His edema is currently controlled, he has reported taking increase potassium from his baseline of 40 mEq twice daily. Will recheck at his appointment with wound care on Sunday, with appropriate recommendations for titration. 3. Congestive heart failure. Patient's lower extremity edema does appear improved today. Unclear as far as patient's compliance, he is hypotensive today , requested he hold his torsemide for this evening. 4. Left foot wound. Patient without any acute signs or symptoms of infection, instructed to keep it clean and dry at this point. Counseling the need to be compliant and follow-up, patient is concerned he is going to have his foot continued to be "trapped away". Reviewed need then to be compliant with instructions and follow-up with care 5. Acute GI distress. This does appear to be improving, unclear etiology if withdrawals, drinking on an empty stomach, or food poisoning giving the current social environment. Patient is getting adequate fluids, has decreased his drinking to his baseline daily beer, has reintroduced and eating small amounts of food and fluids. Diarrhea is improving, nauseated and vomiting resolved 6. Medication adherence. Patient able to review most medications, has difficulty reading labels and no current assistance as his sister is been gone for a few days. Did deliver the antibiotics and reviewed instruction, again instructed on opioid storage and safety. 7. Depression. Patient continues to struggle with multiple financial and social stressors, chaotic environment with minimal support regarding transportation and managing his current medical regimen. Unclear if his current plan is going to be much of an improvement. Has connections with multiple social sciences professor, just continues to struggle with follow-through. 8. Advanced care planning. Patient continues to be overwhelmed with any kind of future decision making her planning regarding his healthcare directives,. Palliative care to continue to provide support as able in this complex patient and complicated social situation. Time Spent: 45 minutes with greater than 50% of this done in counseling regarding medication adherence, opioid safety, evaluation of symptoms, and anticipatory guidance
== END 2017-12-20 17:55 | disposition home or self-care (01) ==
LOC: PC 17:54
PROVIDERS: ATTEND Nurse Practitioner Adult Health
DX: Z51.5 Encounter for palliative care (principal); C34.90 Malignant neoplasm of unspecified part of unspecified bronchus or lung; C79.31 Secondary malignant neoplasm of brain; F10.20 Alcohol dependence, uncomplicated; G89.29 Other chronic pain; G62.9 Polyneuropathy, unspecified; R07.9 Chest pain, unspecified; M25.50 Pain in unspecified joint; E87.6 Hypokalemia; I50.9 Heart failure, unspecified; K30 Functional dyspepsia; F32.9 Major depressive disorder, single episode, unspecified; F17.200 Nicotine dependence, unspecified, uncomplicated; H26.9 Unspecified cataract; Z91.14 Patient's other noncompliance with medication regimen; Z79.51 Long term (current) use of inhaled steroids; Z79.2 Long term (current) use of antibiotics; Z79.899 Other long term (current) drug therapy
CPT/HCPCS: 99349

== ENCOUNTER 2018-01-11 11:15 | Outpatient (CLI) | payer MEDICAID ==
--- NOTE | 2018-01-13 13:56 | CONSULTATION NOTE ---
Palliative Care Follow Up - Referral Referring Provider: Dr. Jodee Castillo Time of Visit: VISIT DATE THURSDAY 01/11 11:20-12:00 Referral setting: Home (It is a taxing and considerable effort for the patient to leave the home, unable to get into appointments related to transporation issues; needing follow up) Referral Reason: Neuropathic & Neoplastic Pain/Lung Cancer/Depression - Information Sources Records reviewed: RN notes reviewed, Previous records reviewed History/Review of Systems obtained from: Patient Exam limitations: Clinical condition (patient with little insight at times to seriousness of condition; STM issues) - History of Present Illness Update Brief HPI Update: This is a feisty 57-year-old gentleman with adenocarcinoma of the lung, with known brain metastases status post CyberKnife at [facility] 02/2017. Recently restarted on Keppra for seizures, MRI 12/11 Did not show any progressive disease. He is currently receiving pembrolizumab, Has received 6 cycles, has been on hold secondary to ongoing health issues and concern for pneumonia. Patient was received today, but missed his appointment secondary to transportation issues. Patient does continue to struggle with addiction disorder he is a chronic alcoholic, continues to smoke, and has difficulty with medication adherence. He does have trouble meeting his appointments, adhering to his treatment plan, and now has missed his surgeries for cataracts. He has been out of his potassium for several days, he has had several ED visits as a result of hypokalemia, could not find anyone to pick them up. I find him pale today, though he is alert and oriented and able to participate in exam. He reports he is back to his baseline beers 1-2 daily, has been drinking adequate amounts of water, he is at OxyContin 20 mg twice daily a decrease from 3 times daily secondary to his insurance issues, we have increase his gabapentin in response, he continues to have severe neuropathic pain, and chest discomfort. He has had some functional decline, is unable to continue with physical therapy, and has limited mobility as he now is experiencing increased trouble with his left foot wound/toe nail. He is missing his wound care appointment as well. Social History - Living Situation Living arrangement: Other (living with sister on couch; now has friend "Radha" who also has health issues with him; goal to move out to [facility]; more distress and complex dynamics in current situation impacting mood and anxiety) Medications/Allergies - Medications Home Medications: Ambulatory Orders Medication Instructions Recorded Confirmed Albuterol [Ventolin Hfa] 2 puffs INH Q4H PRN 11/11/14 01/13/18 Lorazepam [Ativan] 1 mg PO Q8HR PRN 09/23/15 01/13/18 Tamsulosin [Flomax] 0.4 mg PO BID 06/29/16 01/13/18 Esomeprazole Magnesium [Nexium 20 mg PO DAILY 08/10/16 01/13/18 24Hr] Oxycodone HCl [Oxycontin] 20 mg PO TID 07/04/17 01/13/18 Torsemide 20 mg PO BID MDD extra dose PRN 07/04/17 01/13/18 Oxycodone HCl 10 - 20 mg PO Q4HR PRN MDD 8 tabs 07/26/17 01/13/18 Vitamin B Complex 1 tab PO DAILY 07/26/17 01/13/18 Sennosides [Senna Lax] 2 tab PO BID PRN 08/10/17 01/13/18 Lidocaine Ointment 5% [Xylocaine 1 appful TOP PRN PRN 08/20/17 01/13/18 Ointment 5%] Amlodipine Besylate [Amlodipine 10 mg PO DAILY 08/21/17 01/13/18 Besylate] Melatonin 5 mg PO DAILY PM 08/29/17 01/13/18 Magnesium Oxide [Magnesium] 400 mg PO BID 08/30/17 01/13/18 Potassium Chloride [K-Dur] 40 meq PO BID 08/30/17 01/13/18 Gabapentin [Neurontin] 1,600 mg PO BID 09/27/17 01/13/18 Levetiracetam [Keppra] 500 mg PO BID #30 tablet 11/23/17 01/13/18 Loperamide [Imodium] 2 mg PO Q4HR PRN 12/20/17 01/13/18 Ondansetron [Ondansetron Odt] 4 mg SL Q4HR PRN 12/20/17 01/13/18 - Allergies Allergies/Adverse Reactions: Allergies Allergy/AdvReac Type Severity Reaction Status Date / Time BRONWYN Inhibitors Allergy Emesis Verified 12/17/17 12:29 amoxicillin [From Augmentin] Allergy Emesis Verified 12/17/17 12:29 clavulanic acid Allergy Emesis Verified 12/17/17 12:29 [From Augmentin] lisinopril Allergy "THROAT Verified 12/17/17 12:29 SWELLING" Review of Systems - Constitutional Constitutional: reports: Fatigue, Weakness. denies: Fever, Chills - Eyes Eyes: reports: Vision loss (has not rescheduled cataract surgery; feels left eye vision worsening with some double vision at times) - Ears, Nose & Throat Ears, Nose & Throat: reports: Dental decay, Dry mouth - Cardiovascular Cardiovascular: reports: Edema, Decr. exercise tolerance - Respiratory Respiratory: reports: Cough (not changed from baseline;), SOB with exertion - Gastrointestinal Gastrointestinal: reports: Abdominal pain (resolving with AB finished), Nausea ( intermittent), Good appetite. denies: Constipation - Genitourinary Genitourinary: reports: Frequency - Musculoskeletal Musculoskeletal: reports: Muscle aches, Stiffness, Limited range of motion, Muscle weakness, Assistive devices (uses cane when out) - Integumentary Integumentary: reports: Other (left great toe with eschar; insicion from amputation) - Neurological Neurological: reports: General weakness, Memory problems (impacted by adherence to medications and alcohol use) - Psychiatric Psychiatric: reports: Depression, Anxiety (regarding current living situation), Aggitation (easily distress in current living situation; now with Radha currently living with quentin) - Hematologic/Lymphatic Hematologic/Lymphatic: reports: Recurrent infections (finished AB for pneumonia ; feels some improvement in chest discomfort) - All Other Systems All Other Systems: reports: Reviewed and negative Physical Exam - Vital Signs Temperature: 97.8 C Pulse Rate: 96 Respiratory Rate: 18 O2 Saturation: 91 (ra @ rest) Blood Pressure: 106/68 - Physical Exam General Appearance: positive: Moderate distress, Anxious Eyes Bilateral: positive: Normal inspection ENT: positive: No signs of dehydration Neck: positive: No JVD, Trachea midline Cardiovascular: positive: Regular rate & rhythm Respiratory: positive: Diminished throughout. negative: Wheezes, Rales, Rhonchi Abdomen: positive: Non-tender, Nml bowel sounds Skin: positive: Wound (left toe; thickened brown eschar surrounding fungal nail ; does dull color no erythema or s/s cellulitis today-missed wound care appointment; patient describes digging around nail and squeezing out puss as it was swollen and red; has since resolved with serous drainage though not observe; ) Extremities: positive: Pedal edema (improved from other times seen; 1+ over instep left over right; trace up into calf area), Other (amb. short distance in home; sleeps on couch appears weak and shakey) Neurologic/Psychiatric: positive: Oriented x3, Weakness, Depressed mood/affect, Flat affect Palliative Care - POLST Patient has POLST: No Pain: Pain worsening, Location (central chest area; most severe is LE neuropathy using [id number] mg BID; 10 mg oxycodone to be staying at 8/24 hours often runs short; gabapentin 1600 mg BID; topical lidocaine;) Tiredness/Fatigue: Severe (7-10) Drowsiness/Sedation: Moderate (4-6) Nausea: Mild (1-3) Depression: Moderate (4-6) Anxiety: Severe (7-10) Dyspnea: Moderate (4-6) Anorexia: Mild (1-3) Sleep: Variable sleep pattern Constipation: Intermittent constipation Performance Status: Patient weak and shaky with ambulation, balance very poor secondary his neuropathies. He denies any recent falls. He does have a transport wheelchair , but uses a cane mostly when going further distances. He also has a 4 wheeled walker. Patient currently meeting his own ADLs, though infrequently baths secondary to the shower being upstairs - Palliative Care Discussion: Patient is quite wound up today, had counted on sister providing transportation , she has not been around for a couple days. He is brought up his new friend Radha from [place], they are arguing and in distress, as well as the kids hanging around the house are "driving him crazy". Patient is planning to get his own apartment, but having difficulty in following through. Continues to struggle and putting all the pieces together, but stays up late through the night, and sleeps through the day which adds to the complexity of scheduling and follow-through Impression and Recommendations - Palliative Care Impression: This is a 57-year-old gentleman with known metastatic adenocarcinoma of the lung , currently receiving immunotherapy. He does have known brain metastases status post CyberKnife, recent MRI shows no progression of disease, despite recurrence of his seizures. He is having some increased vision changes in his left eye on top of his cataract. Patient continues to struggle with high symptom burden, addiction issues, multiple social and financial stressors including transportation and adherence to treatment plan. Palliative care continue to provide support as able and anticipatory guidance. Recommendations/Counseling Done: 1. Acute on chronic pain, multifactorial in origin. Patient is on 1200 mg of gabapentin twice daily, he is able to be more compliant with twice a day dosing , OxyContin 20 mg twice daily secondary insurance issues decreased from 3 times daily, and oxycodone 10 mg not to exceed 8 tabs in 24 hours. Patient does continue to struggle with pacing of his prescription, he is aware he needs to follow within parameters. Counseling regarding safety, safe storage given his current living situation, and strategies to remain compliant with his current regimen. Patient able to verbalize back risks and concerns, prescription provided for oxycodone. 2. Hypokalemia. Patient without his potassium for several days, did deliver for him and recommend he take extra 20 mg for the next 4-5 days. He is to reschedule his appointments, he has had no labs recently. Will follow up, he is to have a wound care appointment if he follows through, will have him get labs then. 3. Congestive heart failure. Patient's current lower extremity edema does not appear controlled today, patient reports he does take the extra torsemide if his feet or too swollen, at this point in time it does appear controlled. 4. Left foot wound. Patient had been breathing it himself, instructed to wait wound care appointment, and no further doctoring himself. Unclear exactly what patient is doing for wound care, reports he has lots of ointments etc. Patient at this point in time the wound appears quite dried, no redness erythema, or signs or symptoms of infection. 5. Medication adherence. Patient does have his own system, is able to the most part tell me what he is taking, he does have bottles marked. Unclear patient's ongoing compliance. 6. Depression. Patient continues to struggle with multiple financial and social stressors, chaotic environment with minimally available support regarding transportation and managing his current medical regimen. Having met his new roommate Radha, am concerned about the appropriateness of his plan. He is already feeling overwhelmed and they are arguing fairly loudly. 8. Advanced care planning. Patient continues to be overwhelmed with any kind of future decision making, though does admit he understands his condition is not curable. Both his mother and father of lung cancer at fairly young ages. He is quite terrified of dying per his report, much less having a conversation about the what next, agreed we would continue to visit it around the edges as able. Time Spent: 40 minutes was given 50% of this done in counseling regarding medication medication adherence, pain medication and safety, as well as anticipatory guidance
== END 2018-01-11 11:16 | disposition home or self-care (01) ==
LOC: PC 11:15
PROVIDERS: ATTEND Nurse Practitioner Adult Health
DX: Z51.5 Encounter for palliative care (principal); G89.29 Other chronic pain; E87.6 Hypokalemia; T50.3X6A Underdosing of electrolytic, caloric and water-balance agents, initial encounter; Z91.138 Patient's unintentional underdosing of medication regimen for other reason; I50.9 Heart failure, unspecified; C34.90 Malignant neoplasm of unspecified part of unspecified bronchus or lung; C79.31 Secondary malignant neoplasm of brain; F10.20 Alcohol dependence, uncomplicated; M79.2 Neuralgia and neuritis, unspecified; F32.9 Major depressive disorder, single episode, unspecified; F41.9 Anxiety disorder, unspecified; B35.1 Tinea unguium; R56.9 Unspecified convulsions; Z72.0 Tobacco use; Z79.891 Long term (current) use of opiate analgesic; Z79.899 Other long term (current) drug therapy; Z87.01 Personal history of pneumonia (recurrent); Z60.8 Other problems related to social environment
CPT/HCPCS: 99349

== ENCOUNTER 2018-02-02 13:21 | Outpatient (CLI) | payer MEDICAID | END 2018-02-02 13:22 | disposition critical access hospital (66) | LOC: EMS 13:21 | PROVIDERS: ATTEND Surgery | DX: R11.2 Nausea with vomiting, unspecified (principal); R50.9 Fever, unspecified | CPT/HCPCS: A0425; A0429; A0999 ==

== ENCOUNTER 2018-02-02 13:43 | Emergency (ER) | payer MEDICAID ==
[2018-02-02] MEDS ORDERED: HYDROmorphone 2 MG/ML VIAL IVP STA (13:55)
[2018-02-02] MEDS ORDERED: SODIUM CHLORIDE 0.9% 1,000 ML IV ONE (13:55)
[2018-02-02] MEDS ORDERED: ONDANSETRON 4 MG/2 ML VIAL IVP STA (13:55)
--- NOTE | 2018-02-02 13:57 | ED Physician Documentation ---
PD HPI ABD PAIN - Stated complaint Stated Complaint: N/V - Chief complaint Chief Complaint: Abd Pain - History obtained from History obtained from: Patient, EMS - History of Present Illness Timing - onset: Other (58-year-old gentleman with metastatic lung cancer and palliative care undergoing immunotherapy. He has had 2 days of diarrhea and now a days worth of vomiting and abdominal pain and chills. When asked if he has had a fever he says yes and it was 98.9. He has chest and abdominal pain from the retching. He notes no hematemesis. No family or personal contacts with diarrheal/vomiting illnesses. He does have a productive cough as well. On his last visit he was quite drunk, I asked him if he has been drinking and he says he did drink last night but had to stop because of the illness.) Review of Systems Constitutional: reports: Fever ("98.9"), Chills Nose: reports: Rhinorrhea / runny nose Throat: reports: Sore throat Respiratory: reports: Dyspnea, Cough GI: reports: Abdominal Pain, Nausea, Vomiting, Diarrhea. denies: Hematemesis, Bloody / black stool PD PAST MEDICAL HISTORY - Past Medical History Cardiovascular: Congestive heart failure, Hypertension, Coronary artery disease , Peripheral Vascular Disease Respiratory: COPD, Shortness of breath, Other Endocrine/Autoimmune: None GI: GERD, Chronic constipation, Diverticulitis : Benign prostate hypertrophy, Incontinence, Nocturia, Frequency HEENT: Chronic vision loss Psych: Anxiety Musculoskeletal: Chronic back pain, Other Derm: None - Past Surgical History Past Surgical History: Yes Ortho: Amputation Cardiovascular: Cardiac catheterization - Present Medications Home Medications: Ambulatory Orders Medication Instructions Recorded Confirmed Albuterol [Ventolin Hfa] 2 puffs INH Q4H PRN 11/11/14 01/23/18 Lorazepam [Ativan] 1 mg PO Q8HR PRN 09/23/15 01/23/18 Tamsulosin [Flomax] 0.4 mg PO BID 06/29/16 01/23/18 Esomeprazole Magnesium [Nexium 20 mg PO DAILY 08/10/16 01/23/18 24Hr] Oxycodone HCl [Oxycontin] 20 mg PO TID 07/04/17 01/23/18 Torsemide 20 mg PO BID MDD extra dose PRN 07/04/17 01/23/18 Oxycodone HCl 10 - 20 mg PO Q4HR PRN MDD 8 tabs 07/26/17 01/23/18 Vitamin B Complex 1 tab PO DAILY 07/26/17 01/23/18 Sennosides [Senna Lax] 2 tab PO BID PRN 08/10/17 01/23/18 Lidocaine Ointment 5% [Xylocaine 1 appful TOP PRN PRN 08/20/17 01/23/18 Ointment 5%] Amlodipine Besylate [Amlodipine 10 mg PO DAILY 08/21/17 01/23/18 Besylate] Melatonin 5 mg PO DAILY PM 08/29/17 01/23/18 Magnesium Oxide [Magnesium] 400 mg PO BID 08/30/17 01/23/18 Potassium Chloride [K-Dur] 40 meq PO BID 08/30/17 01/23/18 Gabapentin [Neurontin] 1,600 mg PO BID 09/27/17 01/23/18 Levetiracetam [Keppra] 500 mg PO BID #30 tablet 11/23/17 01/23/18 Loperamide [Imodium] 2 mg PO Q4HR PRN 12/20/17 01/23/18 Ondansetron [Ondansetron Odt] 4 mg SL Q4HR PRN 12/20/17 01/23/18 HYDROcod/ACETAM 5/325 [Havana 5/325] 1 - 2 ea PO Q6H PRN #15 tablet 02/02/18 Loperamide [Imodium] 2 mg PO QID PRN #10 capsule 02/02/18 Nystatin 5 ml PO Q4HR #300 ml 02/02/18 Promethazine [Phenergan] 25 - 50 mg PO Q6H PRN #15 tab 02/02/18 - Allergies Allergies/Adverse Reactions: Allergies Allergy/AdvReac Type Severity Reaction Status Date / Time BRONWYN Inhibitors Allergy Emesis Verified 02/02/18 13:50 amoxicillin [From Augmentin] Allergy Emesis Verified 02/02/18 13:50 clavulanic acid Allergy Emesis Verified 02/02/18 13:50 [From Augmentin] lisinopril Allergy "THROAT Verified 02/02/18 13:50 SWELLING" - Social History Does the pt smoke?: Yes Smoking Status: Current every day smoker Does the pt drink ETOH?: Yes Does the pt have substance abuse?: No - Immunizations Immunizations are current?: Yes - POLST Patient has POLST: No POLST Status: Full Code PD ED PE NORMAL - Vitals Vital signs reviewed: Yes - General General: Alert and oriented X 3, No acute distress - HEENT HEENT: Pharynx benign, Other (He has thrush on the tongue) - Neck Neck: Supple, no meningeal sign, No bony TTP - Cardiac Cardiac: RRR, No murmur - Respiratory Respiratory: No respiratory distress, Other (Rhonchorous and diminished throughout) - Abdomen Abdomen: Other (Very mild right-sided tenderness with hyperactive bowel tones and no surgical signs) - Back Back: No CVA TTP, No spinal TTP - Derm Derm: Normal color, Warm and dry - Extremities Extremities: No edema, No calf tenderness / cord - Neuro Neuro: Alert and oriented X 3, Normal speech Results - Vitals Vitals: Vital Signs - 24 hr 02/02/18 02/02/18 02/02/18 13:46 14:21 14:51 Temperature 36.4 C L Heart Rate 118 H 116 H 118 H Respiratory 22 18 20 Rate Blood Pressure 125/81 H 113/72 110/69 O2 Saturation 98 97 95 02/02/18 15:29 Temperature Heart Rate 112 H Respiratory 10 L Rate Blood Pressure 120/76 O2 Saturation 97 Oxygen O2 Source Room air - EKG (time done) 1403 Rate: Rate (enter#) (116) Rhythm: Sinus tachycardia Cranks: RAD Intervals: Normal MI QRS: Normal Ischemia: Normal ST segments Computer interpretation: Agree with computer - Labs Labs: Laboratory Tests 02/02/18 02/02/18 02/02/18 14:03 14:03 14:05 WBC 5.7 RBC 3.99 L Hgb 13.4 L Hct 36.7 L MCV 92.1 MCH 33.5 H MCHC 36.4 H RDW 14.8 Plt Count 118 L MPV 7.8 Neut # (Auto) 4.4 Lymph # (Auto) 0.8 L [place] # (Auto) 0.4 Eos # (Auto) 0.0 Baso # (Auto) 0.0 Absolute Nucleated RBC 0.00 Nucleated RBC % 0.0 Sodium 122 L Potassium 3.6 Chloride 89 L Carbon Dioxide 23 Anion Gap 10.0 BUN 5 L Creatinine 0.7 Estimated GFR (MDRD) 117 Glucose 85 Lactic Acid 0.9 Calcium 9.3 Total Bilirubin 1.4 H AST 49 H ALT 12 Alkaline Phosphatase 96 Total Protein 7.0 Albumin 3.8 Globulin 3.2 Albumin/Globulin Ratio 1.2 Lipase 49 Ethyl Alcohol < 5.0 PD MEDICAL DECISION MAKING - ED course ED course: 68-year-old gentleman in palliative care for metastatic cancer on immunotherapy presents with vomiting and diarrhea. Sounds like a viral illness. His blood work is reassuring he was feeling better after medications and IV fluids here. He does have oral thrush and this is treated as well. - Sepsis Event Vital Signs: Vital Signs - 24 hr 02/02/18 02/02/18 02/02/18 13:46 14:21 14:51 Temperature 36.4 C L Heart Rate 118 H 116 H 118 H Respiratory 22 18 20 Rate Blood Pressure 125/81 H 113/72 110/69 O2 Saturation 98 97 95 02/02/18 15:29 Temperature Heart Rate 112 H Respiratory 10 L Rate Blood Pressure 120/76 O2 Saturation 97 Oxygen O2 Source Room air Departure - Departure Disposition: 01 Home, Self Care Clinical Impression: History of lung cancer Vomiting Qualifiers: Vomiting type: unspecified Vomiting Intractability: non-intractable Nausea presence: with nausea Qualified Code(s): R11.2 - Nausea with vomiting, unspecified Abdominal pain Qualifiers: Abdominal location: generalized Qualified Code(s): R10.84 - Generalized abdominal pain Diarrhea Qualifiers: Diarrhea type: unspecified type Qualified Code(s): R19.7 - Diarrhea, unspecified Condition: Good Record reviewed to determine appropriate education?: Yes Instructions: ED Gastroenteritis Viral, Thrush Oral Prescriptions: Nystatin 5 ml PO Q4HR #300 ml HYDROcod/ACETAM 5/325 [Havana 5/325] 1 - 2 ea PO Q6H PRN #15 tablet PRN Reason: Pain Loperamide [Imodium] 2 mg PO QID PRN #10 capsule PRN Reason: Diarrhea Promethazine [Phenergan] 25 - 50 mg PO Q6H PRN #15 tab PRN Reason: Nausea / Vomiting Comments: Call your doctor to arrange a follow-up appointment, make the next available appointment. In the interim, return anytime if worse or if new symptoms develop.
[2018-02-02 14:21] LABS: BASOPHILS % (AUTO) 0.6 %; EOSINOPHILS % (AUTO) 0.7 %; HGB - HEMOGLOBIN 13.4 g/dL (14.0-18.0); LYMPHOCYTES # (AUTO) 0.8 10^3/uL (1.5-3.5); MEAN CORPUSCULAR HEMOGLOBIN 33.5 pg (27.0-31.0); MEAN CORPUSCULAR HGB CONC 36.4 g/dL (32.0-36.0); MEAN CORPUSCULAR VOLUME 92.1 fL (80.0-94.0); MEAN PLATELET VOLUME 7.8 fL (7.4-11.4); MONOCYTES # (AUTO) 0.4 10^3/uL (0.0-1.0); MONOCYTES % (AUTO) 7.2 %; NEUTROPHILS # (AUTO) 4.4 10^3/uL (1.5-6.6); NEUTROPHILS % (AUTO) 77.5 %; PLT - PLATELET COUNT 118 10^3/uL (130-450); RED BLOOD COUNT 3.99 10^6/uL (4.70-6.10); RED CELL DISTRIBUTION WIDTH 14.8 % (12.0-15.0); WHITE BLOOD COUNT 5.7 x10^3/uL (4.8-10.8)
[2018-02-02 14:29] LABS: ALBUMIN 3.8 g/dL (3.2-5.5); ALBUMIN/GLOBULIN RATIO 1.2 (1.0-2.2); ALKALINE PHOSPHATASE 96 IU/L (42-121); ALT ALANINE AMINOTRANSFERASE 12 IU/L (10-60); AST ASPARTATE AMINOTRANSFERASE 49 IU/L (10-42); BILIRUBIN,TOTAL 1.4 mg/dL (0.2-1.0); BUN - BLOOD UREA NITROGEN 5 mg/dL (6-20); CALCIUM 9.3 mg/dL (8.5-10.3); CARBON DIOXIDE - CO2 23 mmol/L (21-32); CHLORIDE 89 mmol/L (101-111); CREATININE 0.7 mg/dL (0.6-1.2); GFR - MDRD 117 (>89); GLUCOSE 85 mg/dL (70-100); LIPASE 49 U/L (22-51); SODIUM 122 mmol/L (135-145)
--- NOTE | 2018-02-02 15:17 | XRAY Report ---
Procedure Date: 02/02/2018 Accession Number: [id number] / [id number] Procedure: XR - Chest 2 View X-Ray CPT Code: 48249 FULL RESULT: EXAM: CHEST RADIOGRAPHY EXAM DATE: 02/02/2018 02:45 PM. CLINICAL HISTORY: Cough. COMPARISON: 12/17/2017. TECHNIQUE: 2 views. FINDINGS: Lungs/Pleura: There is persistent right midlung opacification similar to prior study. Left lung is clear. Mediastinum: Heart and mediastinal contours are unremarkable. Other: None. IMPRESSION: No acute findings. Right midlung opacification is again seen. RADIA
[2018-02-02 15:29] VITALS: BP 120/76
[2018-02-02] MEDS ORDERED: NYSTATIN 500000 UNITS/5 ML UDC PO STA (15:32)
[2018-02-02] MEDS ORDERED: LIDOCAINE VISCOUS 2% 15 ML UDC MM STA (15:32)
== END 2018-02-02 16:13 | disposition home or self-care (01) ==
LOC: EDUNIT# → ED 13:43
DX: C34.90 Malignant neoplasm of unspecified part of unspecified bronchus or lung (principal); R11.2 Nausea with vomiting, unspecified; R10.84 Generalized abdominal pain; R19.7 Diarrhea, unspecified; R00.0 Tachycardia, unspecified; B37.0 Candidal stomatitis; I11.0 Hypertensive heart disease with heart failure; I50.9 Heart failure, unspecified; I25.10 Atherosclerotic heart disease of native coronary artery without angina pectoris; I73.9 Peripheral vascular disease, unspecified; F17.200 Nicotine dependence, unspecified, uncomplicated
CPT/HCPCS: 36415; 71046; 80053; 80320; 83605; 83690; 85025; 87040; 93005; 96361; 96374; 99284; A9270; J1170

== ENCOUNTER 2018-02-13 11:19 | Outpatient (CLI) | payer MEDICAID ==
--- NOTE | 2018-02-13 17:16 | CONSULTATION NOTE ---
Palliative Care Follow Up - Referral Referring Provider: Dr. Castillo Time of Visit: [id number] [place] [facility] [place] Reason: Chronic Pain/Met Lung Cancer - Information Sources Records reviewed: Previous records reviewed History/Review of Systems obtained from: Patient Exam limitations: No limitations - History of Present Illness Update Brief HPI Update: This is a feisty 58-year-old gentleman with adenocarcinoma of the lung with known branding metastases status post [facility] in 2016. He is currently receiving pembrolizumab, his CT scan done after 6 cycles show stable right lung disease. His most pressing symptoms still continue to be his lower extremity pain, he has had severe lower extremity neuropathy, is currently on gabapentin 1600 mg twice daily, OxyContin 20 mg 3 times daily, and oxycodone 10-20 mg up to 8 tabs for breakthrough pain. Patient does get an escalation when he is feeling poorly, after his treatment he does get a flare in his joint pain, he has had increased lower extremity edema which increases his neuropathic pain syndrome. He does tend to not track his pain medication on a regular basis, and often runs out. He does seem to tolerate this, he is a long-term alcoholic, and still drinking though at lower quantities. He does report he had an acute illness, it is the precipitating factor for an ED visit, they found nothing acute. Patient also recently diagnosed with cellulitis in his right great toe, and is finishing antibiotics of unknown type as he cannot remember. Today he actually feels pretty good, his pain is moderately controlled, he is making good eye contact, he is actually quite clear. He [place] this [place]. At this point in time he will be moving in with the batch and furnace manager of the apartment, his son will be helping him. He reports he will have a better bed, and Jeffry can better support with rides and assistance. He has so set up [employer]rans[employer], and has used it now for both appointments, patient does tend to get overwhelmed and missed appointments as well as his difficulty with medication adherence Social History - Living Situation Living arrangement: Other (still living at sister's on the couch; friend whom he was going to live with is at [facility] and in poor health; is going to room with apt. batch and furnace manager; plan to move in this coming weekend) Medications/Allergies - Medications Home Medications: Ambulatory Orders Medication Instructions Recorded Confirmed Albuterol [Ventolin Hfa] 2 puffs INH Q4H PRN 11/11/14 02/13/18 Lorazepam [Ativan] 1 mg PO Q8HR PRN 09/23/15 02/13/18 Tamsulosin [Flomax] 0.4 mg PO BID 06/29/16 02/13/18 Esomeprazole Magnesium [Nexium 20 mg PO DAILY 08/10/16 02/13/18 24Hr] Oxycodone HCl [Oxycontin] 20 mg PO TID 07/04/17 02/13/18 Torsemide 20 mg PO BID MDD extra dose PRN 07/04/17 02/13/18 Oxycodone HCl 10 - 20 mg PO Q4HR PRN MDD 8 tabs 07/26/17 02/13/18 Vitamin B Complex 1 tab PO DAILY 07/26/17 02/13/18 Sennosides [Senna Lax] 2 tab PO BID PRN 08/10/17 02/13/18 Lidocaine Ointment 5% [Xylocaine 1 appful TOP PRN PRN 08/20/17 02/13/18 Ointment 5%] Amlodipine Besylate [Amlodipine 10 mg PO DAILY 08/21/17 02/13/18 Besylate] Melatonin 5 mg PO DAILY PM 08/29/17 02/13/18 Magnesium Oxide [Magnesium] 400 mg PO DAILY 08/30/17 02/13/18 Potassium Chloride [K-Dur] 40 meq PO BID 08/30/17 02/13/18 Gabapentin [Neurontin] 1,600 mg PO BID 09/27/17 02/13/18 Levetiracetam [Keppra] 500 mg PO BID #30 tablet 11/23/17 02/13/18 Loperamide [Imodium] 2 mg PO Q4HR PRN 12/20/17 02/13/18 Ondansetron [Ondansetron Odt] 4 mg SL Q4HR PRN 12/20/17 02/13/18 Polyethylene Glycol 3350 [Miralax] 17 gm PO DAILY 02/13/18 02/13/18 - Allergies Allergies/Adverse Reactions: Allergies Allergy/AdvReac Type Severity Reaction Status Date / Time BRONWYN Inhibitors Allergy Emesis Verified 02/02/18 13:50 amoxicillin [From Augmentin] Allergy Emesis Verified 02/02/18 13:50 clavulanic acid Allergy Emesis Verified 02/02/18 13:50 [From Augmentin] lisinopril Allergy "THROAT Verified 02/02/18 13:50 SWELLING" Review of Systems - Constitutional Constitutional: reports: Fatigue, Chills. denies: Fever - Eyes Eyes: reports: Vision loss (severe cataracts; poor vision; has not rescheduled appointments) - Ears, Nose & Throat Ears, Nose & Throat: reports: Hearing loss, Sore throat (new today; scratchy feels might be the smoke), Dry mouth - Cardiovascular Cardiovascular: reports: Edema (reports increased over last several days; wearing aces; taking extra torsemide), Decr. exercise tolerance - Respiratory Respiratory: reports: Cough (baseline), SOB with exertion. denies: SOB at rest - Gastrointestinal Gastrointestinal: reports: Constipation (intermittent), Vomiting (resolved felt had viral illness was in ED; feeling better has resolved; does not attribute was out of pain meds though as was feeling better about the time he got his oxycontine), Good appetite. denies: Reflux/heartburn (better now he is taking his nexium again; had run out) - Genitourinary Genitourinary: reports: Frequency - Musculoskeletal Musculoskeletal: reports: Muscle pain, Back pain, Muscle aches, Stiffness, Limited range of motion, Muscle weakness, Joint pain (right shoulder), Assistive devices (uses cane for ambulation) - Integumentary Integumentary: reports: Dryness, Other (seeing wound clinic for ongoing issues related to right toe wound) - Neurological Neurological: reports: General weakness, Memory problems (intermittent) - Psychiatric Psychiatric: reports: Depression, Anxiety - Hematologic/Lymphatic Hematologic/Lymphatic: reports: Anemia, Recurrent infections (now with MRSA positive toe wound; taking AB does not know what kind but almost done) - All Other Systems All Other Systems: reports: Reviewed and negative Palliative Care - POLST Patient has POLST: No Pain: Pain unchanged, Location (bilateral neuropathies severe/right shoulder pain/back and neck pain which flair with immunotherapy) Tiredness/Fatigue: Moderate (4-6) Drowsiness/Sedation: Mild (1-3) Nausea: None Depression: Moderate (4-6) Anxiety: Moderate (4-6) Dyspnea: Moderate (4-6) Anorexia: Mild (1-3) Sleep: Variable sleep pattern Constipation: Yes, Opoid induced, Intermittent constipation Feelings of wellbeing/Perceived Quality of Life: Fair Performance Status: Patient is able to ambulate short distances with his cane, he has been quite sedentary particularly through his acute illness over the last few weeks. He is able to independently shower. His most limiting factor is actually his eyesight, he has not rescheduled his cataract surgeries. - Palliative Care Discussion: Patient continues to have multiple stressors both financial and family. He is looking forward to moving and being away from some of what he calls the craziness. His perception is he will have better psychosocial support with friends down there, and better able to manage in his own place. Patient continues to be quite anxious when talking about any kind of advanced care planning, is appreciative of palliative care support and will continue to work with patient regarding management of his serious illness Results - Lab Results Lab results reviewed: Yes Impression and Recommendations - Palliative Care Impression: This is a 58-year-old gentleman with known metastatic adenocarcinoma of the lung , with metastatic disease to the brain status post [facility]Knife. Recent MRI shows no progression of disease, despite recurrence of seizures. He is to have a repeats MRI in 6 weeks. He is currently receiving immunotherapy, his most prominent side effects have been fatigue, low-grade nausea, and flare of his arthritis and lower extremity neuropathies. Patient continues to struggle with multiple symptom burden issues, addiction issues multiple social and financial stressors. Palliative care to continue to provide support as able and anticipatory guidance Recommendations/Counseling Done: 1. Acute on chronic pain, multifactorial in origin. Patient is currently on 1600 mg of gabapentin twice daily, he is more able to be compliant with twice a day dosing, OxyContin 3 times daily, and outs E 10 mg for breakthrough pain not to exceed 8 tabs in 24 hours. He was provided a prescription of oxycodone 10 mg total of 240 tabs. Counseling done regarding opioid safety, locking hip his medications, tracking on a regular basis, and pacing his prescriptions. 2. Congestive heart failure. Patient's current lower extremity edema appears to be exacerbated again, he has been taking extra torsemide for swelling in the feet, he does not have any crackles or increased shortness of breath. He was to follow-up with a display artist, [place] , and [place] is not been followed through on. 3. Right foot wound. Patient being followed by back wound care clinic, recently diagnosed with MRSA positive and started on antibiotics, he reports this has improved. 4. Medication adherence. Patient continues to struggle though identifies his own system. It is difficult to identify the ongoing compliance. 5. Depression patient continues to struggle with multiple financial and social stressors, chaotic environment, he is looking forward to his transition to the [facility]. Hopefully this will be more supportive of him in the future. 6. Advanced care planning. Patient continues to be overwhelmed with any kind of future decision making, though he does have insight to his condition is not curable. Will continue to work on this is allowed by the patient. Time Spent: 30 minutes with >50% of this done in counseling regarding opioid safety pain management and anticipatory guidance
== END 2018-02-13 11:20 | disposition home or self-care (01) ==
LOC: PC 11:19
PROVIDERS: ATTEND Nurse Practitioner Adult Health
DX: Z51.5 Encounter for palliative care (principal); G89.29 Other chronic pain; M79.605 Pain in left leg; M79.604 Pain in right leg; G62.9 Polyneuropathy, unspecified; I50.9 Heart failure, unspecified; R60.0 Localized edema; F32.9 Major depressive disorder, single episode, unspecified; C34.90 Malignant neoplasm of unspecified part of unspecified bronchus or lung; C79.31 Secondary malignant neoplasm of brain; F10.20 Alcohol dependence, uncomplicated; K59.03 Drug induced constipation; T40.2X5A Adverse effect of other opioids, initial encounter; M62.81 Muscle weakness (generalized); A49.02 Methicillin resistant Staphylococcus aureus infection, unspecified site
CPT/HCPCS: 99214

== ENCOUNTER 2018-03-01 12:35 | Outpatient (CLI) | payer MEDICAID | END 2018-03-01 12:36 | disposition home or self-care (01) | LOC: LAB.R 12:35 | PROVIDERS: ATTEND Nurse Practitioner Family | DX: T87.81 Dehiscence of amputation stump (principal) | CPT/HCPCS: 87070; 87181; 87205 ==

== ENCOUNTER 2018-03-06 15:24 | Outpatient (CLI) | payer MEDICAID ==
--- NOTE | 2018-03-06 21:13 | CONSULTATION NOTE ---
Palliative Care Follow Up - Referral Referring Provider: Dr. Jodee Castillo Time of Visit: 2396-1922 [place] [facility] [place] Reason: Acute on Chronic Pain/Lung Cancer - Information Sources Records reviewed: Previous records reviewed History/Review of Systems obtained from: Patient Exam limitations: Clinical condition (patient with STM issues: easily overwhelmed difficulty tracking) - History of Present Illness Update Brief HPI Update: This is a feisty 58-year-old gentleman with adenocarcinoma the lung dx in 2013, with known brain metastases status post [facility] at [facility] in 02/2017. Is currently receiving pembrolizumab, and CT scan done after 6 cycles had shown stable right lung disease. His most pressing symptoms continue to be related to his severe lower extremity neuropathy, he is currently on gabapentin 1600 mg twice daily, OxyContin 20 mg 3 times daily, and oxycodone 10-20 mg up to 8 tabs for breakthrough pain. He does get escalating pain status post his immunotherapy infusion, with joint pain and muscle discomfort. It also escalates with lower extremity edema, he does have fluctuating issues around this, had never followed through on his cardiology appointment. He is managed with torsemide twice a day and as needed dosing. Most recently presented with increased infection in his left toe wound, patient has been having difficulty get [place] [facility] secondary to his increasing debilitated state, his previous unstable home situation, and with his cognitive issues compliance with appointments and medications. He saw Yessica review his PCP on Sunday, wound culture was done, today he presents with increasing redness, signs and symptoms of infection, but his lower extremity edema is improved. He attributes this to his new situation, as he is sleeping out of bed without his feet dependent, previously slept on his sister's couch. Patient somewhat discombobulated, with multiple appointments. He did not know he was receiving his immunotherapy today, he has missed most of his wound appointments, and was scheduled for follow-up with palliative care. Discussed what might make things go easier for patient, patient is currently homebound, is a taxing considerable effort for him to leave the home. He had after his original surgery with his amputation, had home health and was able to transition to outpatient PT. Again given a chaotic history over the last several weeks to months, has lost functional strength, diminished ability to ambulate, and presents is deconditioned. Social History - Living Situation Living arrangement: At home Living Situation: With friend(s) (Most of patient's support in the context of friends, and family members though they are not currently involved in his care, [place]. [place] to move back [place] there, And due to a series of unfortunate events, has finally been able to manage to find a roommate and apartment. It is furnished, he is currently now sleeping in the bed versus a couch, is less chaotic, he is able to do his own meal prep, he does have significant limitations with his cognitive issues, intermittent alcohol misuse, as well as poor eyesight secondary to cataracts.) Medications/Allergies - Medications Home Medications: Ambulatory Orders Medication Instructions Recorded Confirmed Albuterol [Ventolin Hfa] 2 puffs INH Q4H PRN 11/11/14 03/07/18 Lorazepam [Ativan] 1 mg PO Q8HR PRN 09/23/15 03/07/18 Tamsulosin [Flomax] 0.4 mg PO DAILY 06/29/16 03/07/18 Esomeprazole Magnesium [Nexium 20 mg PO DAILY 08/10/16 03/07/18 24Hr] Oxycodone HCl [Oxycontin] 20 mg PO TID 07/04/17 03/07/18 Torsemide 20 mg PO BID MDD extra dose PRN 07/04/17 03/07/18 Oxycodone HCl 10 - 20 mg PO Q4HR PRN MDD 8 tabs 07/26/17 03/07/18 Vitamin B Complex 1 tab PO DAILY 07/26/17 03/07/18 Sennosides [Senna Lax] 2 - 4 tab PO BID PRN 08/10/17 03/07/18 Lidocaine Ointment 5% [Xylocaine 1 appful TOP PRN PRN 08/20/17 03/07/18 Ointment 5%] Melatonin 5 mg PO DAILY PM 08/29/17 03/07/18 Magnesium Oxide [Magnesium] 400 mg PO DAILY 08/30/17 03/07/18 Potassium Chloride [K-Dur] 40 meq PO BID MDD extra with 08/30/17 03/07/18 diuretic Gabapentin [Neurontin] 1,600 mg PO BID 09/27/17 03/07/18 Levetiracetam [Keppra] 500 mg PO BID #30 tablet 11/23/17 03/07/18 Loperamide [Imodium] 2 mg PO Q4HR PRN 12/20/17 03/07/18 Ondansetron [Ondansetron Odt] 4 mg SL Q4HR PRN 12/20/17 03/07/18 Polyethylene Glycol 3350 [Miralax] 17 gm PO DAILY PRN 02/13/18 03/07/18 Sulfamethox/Trimeth 800/160 1 tab PO BID 03/07/18 03/07/18 [Bactrim Ds] - Allergies Allergies/Adverse Reactions: Allergies Allergy/AdvReac Type Severity Reaction Status Date / Time BRONWYN Inhibitors Allergy Emesis Verified 02/02/18 13:50 amoxicillin [From Augmentin] Allergy Emesis Verified 02/02/18 13:50 clavulanic acid Allergy Emesis Verified 02/02/18 13:50 [From Augmentin] lisinopril Allergy "THROAT Verified 02/02/18 13:50 SWELLING" Review of Systems - Constitutional Constitutional: reports: Fatigue, Malaise, Weakness. denies: Fever - Eyes Eyes: reports: Vision loss (severe cataracts; cannot read unless bolded black lettering making medication management challenging) - Ears, Nose & Throat Ears, Nose & Throat: reports: Hearing loss, Hoarseness, Dental decay, Dry mouth - Cardiovascular Cardiovascular: reports: Edema, Exertional dyspnea, Decr. exercise tolerance - Respiratory Respiratory: reports: Cough, Sputum production, SOB with exertion. denies: SOB at rest - Gastrointestinal Gastrointestinal: reports: Constipation (intermittent; has bowel medicaitons), Nausea (regularly needs 1-2 ondansetron daily), Other (fluctuating appetite; hopes to improve with new situation) - Genitourinary Genitourinary: reports: Frequency, Urgency - Musculoskeletal Musculoskeletal: reports: Muscle pain, Back pain, Muscle aches, Stiffness, Limited range of motion, Muscle weakness, Joint pain, Assistive devices (uses cane; had previous walker at home) - Integumentary Integumentary: reports: Other (Patient with nonhealing amputation incision, and great left toe wound. Recently tested positive for MRSA and treated/current wound culture negative for MRSA.) - Neurological Neurological: reports: General weakness, Dizziness, Memory problems, Incoordination - Psychiatric Psychiatric: reports: Depression, Anxiety (has longstanding anxiety disorder) - Hematologic/Lymphatic Hematologic/Lymphatic: reports: Anemia, Recurrent infections (foot/toe) - All Other Systems All Other Systems: reports: Reviewed and negative Physical Exam - Vital Signs Temperature: 36.6 C Pulse Rate: 104 Respiratory Rate: 18 Blood Pressure: 121/77 - Physical Exam General Appearance: positive: Mild distress, Anxious Neck: positive: Nml inspection Cardiovascular: positive: Regular rate & rhythm, Tachycardia Respiratory: positive: No respiratory distress Abdomen: positive: Soft, Nml bowel sounds Skin: positive: Pallor, Pruritis, Wound (left toe wound; small wounds/blisters bilaterally; legs with tubigrips put on after dressing by wound care nurse) Extremities: positive: Pedal edema (much improved from baseline) Neurologic/Psychiatric: positive: Oriented x3, Weakness, Flat affect Palliative Care - POLST Patient has POLST: No Pain: Pain worsening, Location (Patient has fluctuating pain, reports acute pain worsened with recent infection. Is on gabapentin 1400 mg twice daily, OxyContin 20 mg 3 times daily, and oxycodone 10 mg tabs that they tabs in 24 hours. Patient often runs short of Benjy codon/OxyContin; he uses 1 more than the other when runs out, he has been working on better timing and adjustment of this, recently spilled his meds when moving, new prescription provided by Yessica CAMARGO in communication. Patient usually very honest in regards to opioid use.) Tiredness/Fatigue: Severe (7-10) Drowsiness/Sedation: Moderate (4-6) Nausea: Mild (1-3) Depression: Severe (7-10) Anxiety: Severe (7-10) Dyspnea: Moderate (4-6) Anorexia: Mild (1-3) Sleep: Sleeps well, Variable sleep pattern Constipation: Yes, Opoid induced, Intermittent constipation Feelings of wellbeing/Perceived Quality of Life: Fair, Acceptable, Improved Performance Status: Patient is able to ambulate with cane, reports decreased activity in tolerance, has been mostly "couch bound" for the last several weeks given his situation and intermittent acute illness. Patient does present as deconditioned, difficulty getting from sitting to standing, and now needs to be independent. He has a new apartment, with new bathing facilities, would benefit from home exercise program with safety eval, and evaluation for equipment needs for bathroom - Palliative Care Discussion: Patient has been working all summer on his goal to transition to independent living, and move off of his sister's couch. Environment was very difficult for him, particularly in the context of his medication management, and anxiety. Patient though now feeling somewhat overwhelmed, trying to manage and organize himself, does admit to cognitive issues and memory problems which add to his distress. He wants help with transportation, though he has been given resources multiple times, does just have difficulty tracking. He does have run from [employer], [facility] director social welfare, palliative care director social welfare has worked with him as well. Will check in with her to see if she can offer him some further resources. Patient does feel like given now he is in a more stable environment he will be able to follow through on his [employer] application, this would be assistance as far is also helping with transportation Results - Lab Results Lab results reviewed: Yes Impression and Recommendations - Palliative Care Impression: This is a 58-year-old gentleman who continues to struggle with both high symptom burden and psychosocial stressors. Patient does have lung cancer currently being treated with immunotherapy, is having positive response. Patient with exacerbation of wounds, this is multifactorial in origin including lower extremity edema, difficulty with wound care clinic appointments, and poor eyesight. Patient has also lost ground regarding his current functional status. Palliative care continue to provide support for pain and symptom management and coordination of care. Recommendations/Counseling Done: 1. Left toe and wound infection. Review of culture and sensitivities, will go ahead and order Bactrim DS 1 tab twice daily, called into [facility], this is also communicated with Yessica CAMARGO, As patient had not picked up or been able to locate antibiotic prescription. Examination of wounds with wound care nurse, patient does warrant treatment at this point in time. Given patient's difficulty with wound care secondary eyesight, homebound status, needing more aggressive oversight and intervention will go ahead and facilitate home health referral. 2. Acute on chronic pain, this is multifactorial in origin. No changes made to current regimen, patient again reminded to stay within the context of his prescription, opioid safety given his new setting, RX for OxyContin 20 mg 3 times daily for 90 tabs was provided. 3. Constipation. Patient has been instructed on bowel program multiple times, this is often impacted by the medications he has in the home. He will have access to friends of friends again for his [id number] medications, he is not been financially able to afford those up to this point in time. 4. Anxiety. Patient does have underlying generalized anxiety disorder, this is been exacerbated by his recent move, he has felt quite overwhelmed. Though he is overall feeling much more hopeful now that he is in his new setting, he actually looks much better and more relaxed despite the chaos during this visit. 5. Advanced care planning. Patient did agree once he settles into his new setting that we can revisit long-term care planning as well as advanced directives, will address at next visit as patient allows. 6. Medication adherence. Review patient's current medication list was done and updated. Patient does have his own unique way of doing medications, he has the vials labeled, arranges them so he can do them from memory. Will have home health review medications with patient, continue to monitor for compliance. Patient has done many sets in the past and has found these quite distressful, patient actually has a pretty good handle on his meds just needs frequent reminding and instruction multiple times for changes. [id number] for home health. Patient is homebound it is a considerable and taxing effort for the patient to leave the home, he has declined in his overall strength with increased fatigue. Patient needing home health nursing, to evaluate and treat provide support for wound care and monitoring, patient is quite vision impaired and has difficulty with dressing and monitoring for signs or symptoms of infection. PT for home safety eval equipment recommendations, and progressive home exercise program. Patient's goal is to transition back to outpatient physical therapy when he is doing better. Time Spent: Time spent 30 minutes with greater than 50% of this done and coordination of care, review and evaluation of medications, as well as instruction on pain and safety. Addendum 03/07 follow-up regarding provider to sign plan of care, identify Dr. Ayo Mandujano through primary care clinic. Orders sent off, agreed to do [id number].
== END 2018-03-06 15:25 | disposition home or self-care (01) ==
LOC: PC 15:24
PROVIDERS: ATTEND Nurse Practitioner Adult Health
DX: Z51.5 Encounter for palliative care (principal); C34.90 Malignant neoplasm of unspecified part of unspecified bronchus or lung; C79.31 Secondary malignant neoplasm of brain; K59.00 Constipation, unspecified; G31.84 Mild cognitive impairment of uncertain or unknown etiology; G89.29 Other chronic pain; G62.9 Polyneuropathy, unspecified; T81.4XXD Infection following a procedure, subsequent encounter; B99.9 Unspecified infectious disease; Y83.5 Amputation of limb(s) as the cause of abnormal reaction of the patient, or of later complication, without mention of misadventure at the time of the procedure; H26.9 Unspecified cataract; H91.90 Unspecified hearing loss, unspecified ear; R35.0 Frequency of micturition; R39.15 Urgency of urination; Z79.891 Long term (current) use of opiate analgesic; Z79.51 Long term (current) use of inhaled steroids; Z79.899 Other long term (current) drug therapy; Z72.89 Other problems related to lifestyle
CPT/HCPCS: 99214

== ENCOUNTER 2018-03-19 18:07 | Outpatient (CLI) | payer MEDICAID | END 2018-03-19 18:08 | disposition critical access hospital (66) | LOC: EMS 18:07 | PROVIDERS: ATTEND Surgery | DX: R56.9 Unspecified convulsions (principal) | CPT/HCPCS: A0425; A0429; A0999 ==

== ENCOUNTER 2018-03-19 18:45 | Emergency (ER) | payer MEDICAID ==
--- NOTE | 2018-03-19 19:31 | ED Physician Documentation ---
PD HPI SEIZURE - Stated complaint Stated Complaint: SZ - Chief complaint Chief Complaint: Neuro - History obtained from History obtained from: Patient, EMS - History of Present Illness Timing - onset: Today Witnessed: Unwitnessed (he was by himself but says he is aware of having seizure, with legs and arms stiffening. He remained awake for it.) Number of seizures: Single, Lasted minutes (a minute or less) Description of seizure activity: Focal Injury during seizure: None Associated symptoms: No: Headache, Palpitations History of seizures: Known seizure disorder (He says he has had just a few seizures in the past 6 months or so. Prior brain surgery.) Contributing factors: Other (he was ill yesterday with vomiting and nausea. No diarrhea. Less vomiting today but still low intake. He says he did vomit some of his meds.). No: Off meds, Out of meds Similar symptoms before: Diagnosis (recent seizures with prior brain surgery) Review of Systems Constitutional: denies: Fever, Chills Nose: denies: Rhinorrhea / runny nose, Congestion Throat: denies: Sore throat Respiratory: denies: Cough GI: reports: Nausea, Vomiting (past 2 days). denies: Diarrhea Neurologic: reports: Generalized weakness. denies: Focal weakness, Numbness, Ne ar syncope PD PAST MEDICAL HISTORY - Past Medical History Cardiovascular: Congestive heart failure, Hypertension, Coronary artery disease, Peripheral Vascular Disease Respiratory: COPD, Shortness of breath, Other Neuro: Seizure disorder, Other Endocrine/Autoimmune: None GI: GERD, Chronic constipation, Diverticulitis : Benign prostate hypertrophy, Incontinence, Nocturia, Frequency HEENT: Chronic vision loss Psych: Anxiety Musculoskeletal: Chronic back pain, Other Derm: None - Past Surgical History Past Surgical History: Yes Ortho: Amputation Cardiovascular: Cardiac catheterization - Present Medications Home Medications: Ambulatory Orders Medication Instructions Recorded Confirmed Albuterol [Ventolin Hfa] 2 puffs INH Q4H PRN 11/11/14 03/07/18 Lorazepam [Ativan] 1 mg PO Q8HR PRN 09/23/15 03/07/18 Tamsulosin [Flomax] 0.4 mg PO DAILY 06/29/16 03/07/18 Esomeprazole Magnesium [Nexium 20 mg PO DAILY 08/10/16 03/07/18 24Hr] Oxycodone HCl [Oxycontin] 20 mg PO TID 07/04/17 03/07/18 Torsemide 20 mg PO BID MDD extra dose PRN 07/04/17 03/07/18 Oxycodone HCl 10 - 20 mg PO Q4HR PRN MDD 8 tabs 07/26/17 03/07/18 Vitamin B Complex 1 tab PO DAILY 07/26/17 03/07/18 Sennosides [Senna Lax] 2 - 4 tab PO BID PRN 08/10/17 03/07/18 Lidocaine Ointment 5% [Xylocaine 1 appful TOP PRN PRN 08/20/17 03/07/18 Ointment 5%] Melatonin 5 mg PO DAILY PM 08/29/17 03/07/18 Magnesium Oxide [Magnesium] 400 mg PO DAILY 08/30/17 03/07/18 Potassium Chloride [K-Dur] 40 meq PO BID MDD extra with 08/30/17 03/07/18 diuretic Gabapentin [Neurontin] 1,600 mg PO BID 09/27/17 03/07/18 Levetiracetam [Keppra] 500 mg PO BID #30 tablet 11/23/17 03/07/18 Loperamide [Imodium] 2 mg PO Q4HR PRN 12/20/17 03/07/18 Ondansetron [Ondansetron Odt] 4 mg SL Q4HR PRN 12/20/17 03/07/18 Polyethylene Glycol 3350 [Miralax] 17 gm PO DAILY PRN 02/13/18 03/07/18 Sulfamethox/Trimeth 800/160 1 tab PO BID 03/07/18 03/07/18 [Bactrim Ds] Ondansetron Odt [Zofran] 4 mg TL Q6H PRN #15 tablet 03/19/18 - Allergies Allergies/Adverse Reactions: Allergies Allergy/AdvReac Type Severity Reaction Status Date / Time BRONWYN Inhibitors Allergy Emesis Verified 03/19/18 18:51 amoxicillin [From Augmentin] Allergy Emesis Verified 03/19/18 18:51 clavulanic acid Allergy Emesis Verified 03/19/18 18:51 [From Augmentin] lisinopril Allergy "THROAT Verified 03/19/18 18:51 SWELLING" - Social History Does the pt smoke?: Yes Smoking Status: Current every day smoker Does the pt drink ETOH?: Yes Does the pt have substance abuse?: No - Immunizations Immunizations are current?: Yes - POLST Patient has POLST: No POLST Status: Full Code PD ED PE NORMAL - Vitals Vital signs reviewed: Yes - General General: Alert and oriented X 3, No acute distress, Well developed/nourished, Other (unkempt and appears frail and older than age. ) - HEENT HEENT: Atraumatic, Moist mucous membranes, Pharynx benign - Neck Neck: Supple, no meningeal sign, No adenopathy - Cardiac Cardiac: RRR, No murmur - Respiratory Respiratory: Clear bilaterally - Abdomen Abdomen: Normal bowel sounds, Soft, Non tender - Derm Derm: Normal color, Warm and dry - Extremities Extremities: No tenderness to palpate, Normal ROM s pain, Other (bilateral edema with wrapped legs up to knees. ) - Neuro Neuro: Alert and oriented X 3, mobile development manager 2-12 intact, No motor deficit, No sensory deficit, Normal speech Eye Opening: Spontaneous Motor: Obeys Commands Verbal: Oriented GCS Score: 15 Results - Vitals Vitals: Vital Signs - 24 hr 03/19/18 03/19/18 03/19/18 18:44 19:28 20:00 Temperature 37.3 C Heart Rate 112 H 111 H 104 H Respiratory 15 17 20 Rate Blood Pressure 109/60 94/53 L 103/55 L O2 Saturation 97 95 96 03/19/18 03/19/18 03/19/18 21:16 22:16 22:54 Temperature Heart Rate 100 100 100 Respiratory 18 18 20 Rate Blood Pressure 117/74 122/78 111/78 O2 Saturation 93 91 L 92 03/19/18 23:08 Temperature Heart Rate 99 Respiratory 18 Rate Blood Pressure 119/66 O2 Saturation 96 Oxygen O2 Source Room air - Labs Labs: Laboratory Tests 03/19/18 03/19/18 03/19/18 20:00 20:00 20:00 WBC 3.9 L RBC 3.29 L Hgb 10.8 L Hct 31.5 L MCV 95.6 H MCH 32.9 H MCHC 34.4 RDW 15.1 H Plt Count 77 L MPV 7.5 Neut # (Auto) 2.5 Lymph # (Auto) 0.8 L [place] # (Auto) 0.4 Eos # (Auto) 0.1 Baso # (Auto) 0.1 Absolute Nucleated RBC 0.00 Nucleated RBC % 0.1 Sodium 130 L Potassium 4.3 Chloride 95 L Carbon Dioxide 27 Anion Gap 8.0 BUN 8 Creatinine 1.0 Estimated GFR (MDRD) 77 L Glucose 94 Calcium 8.9 Magnesium 1.8 Total Bilirubin 1.4 H AST 27 ALT < 10 L Alkaline Phosphatase 95 B-Natriuretic Peptide 258 H Total Protein 6.8 Albumin 3.6 Globulin 3.2 Albumin/Globulin Ratio 1.1 Lipase 37 Urine Color Urine Clarity Urine pH Ur Specific [place] Urine Protein Urine Glucose (UA) Urine Ketones Urine Occult Blood Urine Nitrite Urine Bilirubin Urine Urobilinogen Ur Leukocyte Esterase Ur Microscopic Review Urine Culture Comments 03/19/18 22:03 WBC RBC Hgb Hct MCV MCH MCHC RDW Plt Count MPV Neut # (Auto) Lymph # (Auto) [place] # (Auto) Eos # (Auto) Baso # (Auto) Absolute Nucleated RBC Nucleated RBC % Sodium Potassium Chloride Carbon Dioxide Anion Gap BUN Creatinine Estimated GFR (MDRD) Glucose Calcium Magnesium Total Bilirubin AST ALT Alkaline Phosphatase B-Natriuretic Peptide Total Protein Albumin Globulin Albumin/Globulin Ratio Lipase Urine Color YELLOW Urine Clarity CLEAR Urine pH 8.0 H Ur Specific [place] 1.015 Urine Protein NEGATIVE Urine Glucose (UA) NEGATIVE Urine Ketones NEGATIVE Urine Occult Blood NEGATIVE Urine Nitrite NEGATIVE Urine Bilirubin NEGATIVE Urine Urobilinogen 0.2 (NORMAL) Ur Leukocyte Esterase NEGATIVE Ur Microscopic Review NOT INDICATED Urine Culture Comments NOT INDICATED PD MEDICAL DECISION MAKING - ED course Complexity details: reviewed results, considered differential (claims seizure with arms and legs spasming but he was awake and aware of it. He had been ill with vomiting yesterday and less intake today. Given IV fluids. He had missed dose of meds due to illness so given IV dose Keppra. Not clearly a seizure. He appears unkempt and frail but not ill at this time. ), d/w patient - Sepsis Event Vital Signs: Vital Signs - 24 hr 03/19/18 03/19/18 03/19/18 18:44 19:28 20:00 Temperature 37.3 C Heart Rate 112 H 111 H 104 H Respiratory 15 17 20 Rate Blood Pressure 109/60 94/53 L 103/55 L O2 Saturation 97 95 96 03/19/18 03/19/18 03/19/18 21:16 22:16 22:54 Temperature Heart Rate 100 100 100 Respiratory 18 18 20 Rate Blood Pressure 117/74 122/78 111/78 O2 Saturation 93 91 L 92 03/19/18 23:08 Temperature Heart Rate 99 Respiratory 18 Rate Blood Pressure 119/66 O2 Saturation 96 Oxygen O2 Source Room air Departure - Departure Disposition: 01 Home, Self Care Clinical Impression: Seizure, Generalized weakness Vomiting Qualifiers: Vomiting type: unspecified Vomiting Intractability: non-intractable Nausea presence: without nausea Qualified Code(s): R11.11 - Vomiting without nausea Condition: Stable Record reviewed to determine appropriate education?: Yes Follow-Up: Yessica Patel ARNP [Primary Care Provider] - Prescriptions: Ondansetron Odt [Zofran] 4 mg TL Q6H PRN #15 tablet PRN Reason: Nausea / Vomiting Comments: You may have been under hydrated because of the vomiting yesterday. We gave you some IV fluids. This can allow for a seizure to occur if you have a seizure disorder. Your looking okay at this point. I do not see any abnormality that suggests the need for being in the hospital. Continue usual medications at home. Drink lots of fluids. Discharge Date/Time: 03/19/18 23:18
[2018-03-19] MEDS ORDERED: ONDANSETRON 4 MG/2 ML VIAL IVP STA (19:46)
[2018-03-19] MEDS ORDERED: levETIRAcetam INJ 500 MG in SODIUM CHLORIDE 0.9% 100ML 100 ML IV STA (19:46)
[2018-03-19] MEDS ORDERED: SODIUM CHLORIDE 0.9% 500 ML IV ONE (19:46)
[2018-03-19 20:06] LABS: BASOPHILS # (AUTO) 0.1 10^3/uL (0.0-0.1); BASOPHILS % (AUTO) 1.3 %; EOSINOPHILS # (AUTO) 0.1 10^3/uL (0.0-0.7); EOSINOPHILS % (AUTO) 2.5 %; HGB - HEMOGLOBIN 10.8 g/dL (14.0-18.0); LYMPHOCYTES # (AUTO) 0.8 10^3/uL (1.5-3.5); LYMPHOCYTES % (AUTO) 21.5 %; MEAN CORPUSCULAR HEMOGLOBIN 32.9 pg (27.0-31.0); MEAN CORPUSCULAR HGB CONC 34.4 g/dL (32.0-36.0); MEAN CORPUSCULAR VOLUME 95.6 fL (80.0-94.0); MEAN PLATELET VOLUME 7.5 fL (7.4-11.4); MONOCYTES # (AUTO) 0.4 10^3/uL (0.0-1.0); MONOCYTES % (AUTO) 9.8 %; NEUTROPHILS # (AUTO) 2.5 10^3/uL (1.5-6.6); NEUTROPHILS % (AUTO) 64.9 %; PLT - PLATELET COUNT 77 10^3/uL (130-450); RED BLOOD COUNT 3.29 10^6/uL (4.70-6.10); RED CELL DISTRIBUTION WIDTH 15.1 % (12.0-15.0); WHITE BLOOD COUNT 3.9 x10^3/uL (4.8-10.8)
[2018-03-19 20:19] LABS: ALBUMIN 3.6 g/dL (3.2-5.5); ALBUMIN/GLOBULIN RATIO 1.1 (1.0-2.2); ALKALINE PHOSPHATASE 95 IU/L (42-121); ALT ALANINE AMINOTRANSFERASE < 10 IU/L (10-60); AST ASPARTATE AMINOTRANSFERASE 27 IU/L (10-42); BILIRUBIN,TOTAL 1.4 mg/dL (0.2-1.0); BUN - BLOOD UREA NITROGEN 8 mg/dL (6-20); CALCIUM 8.9 mg/dL (8.5-10.3); CARBON DIOXIDE - CO2 27 mmol/L (21-32); CHLORIDE 95 mmol/L (101-111); GFR - MDRD 77 (>89); GLUCOSE 94 mg/dL (70-100); LIPASE 37 U/L (22-51); MAGNESIUM 1.8 mg/dL (1.7-2.8); SODIUM 130 mmol/L (135-145); TOTAL PROTEIN 6.8 g/dL (6.7-8.2)
[2018-03-19] MEDS ORDERED: oxyCODONE 5 MG TABLET PO STA (20:38)
--- NOTE | 2018-03-19 20:49 | XRAY Report ---
Reason: dyspnea/seizure Procedure Date: 03/19/2018 Accession Number: [id number] / [id number] Procedure: XR - Chest 1 View X-Ray CPT Code: 30842 FULL RESULT: EXAM: CHEST RADIOGRAPHY EXAM DATE: 03/19/2018 08:05 PM. CLINICAL HISTORY: Dyspnea/seizure. COMPARISON: Chest 2 view 02/02/2018 2:34 PM. Chest 2 view PA/lateral 06/18/2013 3:21 PM. TECHNIQUE: 1 view. FINDINGS: Lungs/Pleura: Transverse right mid lung density again seen. Increasing reticular nodular infiltrates right base. Left lung is clear. Emphysematous changes. No pneumothorax. Mediastinum: Within exam limitations, the cardiomediastinal contour is normal. Other: Several old left rib fractures. Subacute right fifth and sixth rib mildly displaced fractures. Sixth rib fracture present previously although the fifth rib fracture not seen. IMPRESSION: 1. Increasing acute on chronic lung disease consisting of right lung base infiltrate. 2. Persistent dominant right mid lung opacity. Findings worrisome for lung cancer. Correlate clinically with consideration of chest CT. 3. Subacute right fifth and sixth rib fractures. RADIA
[2018-03-19 22:11] LABS: BILIRUBIN,URINE NEGATIVE (NEGATIVE); GLUCOSE, URINE (UA) NEGATIVE (NEGATIVE); KETONES,URINE (UA) NEGATIVE (NEGATIVE); LEUKOCYTE ESTERASE, URINE NEGATIVE (NEGATIVE); NITRITE,URINE NEGATIVE (NEGATIVE); OCCULT BLOOD,URINE NEGATIVE (NEGATIVE); PROTEIN,URINE NEGATIVE (NEGATIVE); UROBILINOGEN,URINE 0.2 (NORMAL) E.U./dL (NORMAL)
[2018-03-19 22:14] LABS: CLARITY,URINE CLEAR (CLEAR)
[2018-03-19 23:10] VITALS: BP 119/66
== END 2018-03-19 23:18 | disposition home or self-care (01) ==
LOC: EDUNIT# → ED 18:45
DX: G40.909 Epilepsy, unspecified, not intractable, without status epilepticus (principal); R53.1 Weakness; R11.11 Vomiting without nausea; R00.0 Tachycardia, unspecified; I11.0 Hypertensive heart disease with heart failure; I50.9 Heart failure, unspecified; I25.10 Atherosclerotic heart disease of native coronary artery without angina pectoris; I73.9 Peripheral vascular disease, unspecified; F17.200 Nicotine dependence, unspecified, uncomplicated
CPT/HCPCS: 36415; 71045; 80053; 80177; 81003; 83690; 83735; 83880; 85025; 93005; 96361; 96374; 99284; A9270; 81001; 87086

== ENCOUNTER 2018-03-20 16:00 | Outpatient (CLI) | payer MEDICAID ==
--- NOTE | 2018-03-20 18:04 | CONSULTATION NOTE ---
Palliative Care Follow Up - Referral Referring Provider: Dr. Jodee Castillo Time of Visit: [id number] Referral setting: Home (Patient is seen in the home setting to facilitate family conference and treatment plan and it is a taxing considerable effort for the patient to leave the home) Referral Reason: Lung Cancer/Seizure/Brain mets - Information Sources Records reviewed: Previous records reviewed History/Review of Systems obtained from: Patient, Family (son Alonso present for visit) Exam limitations: Clinical condition (pateint very anxious difficulty con centrating) - History of Present Illness Update Brief HPI Update: This is a feisty 58-year-old gentleman with adenocarcinoma of the lung diagnosed in 2013, with known brain metastases status post [facility] in 02/2017. He presented yesterday with seizure, reports he was feeling somewhat tremulous and shaky prior, he had been having some nausea and vomiting most likely was somewhat dehydrated. Patient has been very anxious given his current social situation, trying to confirm whether his insurance has been counseled or not. He reports "I puke" when he is stressed. Is very fearful about having a recurrent seizure. His last seizure was in November of this year, and he was restarted on his Keppra at that time. His last MRI was in November as well, which showed no progression or symptoms of disease. He does report over the last several weeks, increased left-sided weakness, most likely exacerbated over the last several days, reports decreased strength in his left upper extremity, some left foot drop and dragging, denies any increased confusion, headache, vision changes, dizziness, or dysphagia. He also received a chest x-ray in the ED, which shows old left rib fractures, right fifth and sixth mildly displaced fractures, increasing acute on chronic lung disease right base infiltrate. Denies any increased respiratory distress, cough, hemoptysis, wheezing, does have baseline shortness of breath with any kind of activity. Patient also has ongoing chronic pain, this is attributed to his severe lower extremity neuropathy, lower extremity edema, and does have some central chest pain. He is on OxyContin 20 mg 3 times daily, oxycodone 10-20 mg for breakthrough pain and gabapentin 1600 mg twice daily. He has had an e xacerbation of his pain as he has had to move his belongings from his sister couch down to a new apartment in [place]. He has not had a chance to settle in, his anxiety is almost immobilizing for him at this point in time. Though he is grateful to finally be in his own home setting. Social History - Living Situation Living arrangement: At home Living Situation: Other (new roomate; apt. sparse and disorganized but clean.) Support System: Patient has more friends down in the [place] area to be able to provide support, his son Alonso was at the visit. He had picked him up at the ED last night, he has limited availability to help patient, but is willing to provide what he can. Patient has been in the process of [facility] prior to move, is feeling like now he is home can focus on getting services in place. Medications/Allergies - Medications Home Medications: Ambulatory Orders Medication Instructions Recorded Confirmed Albuterol [Ventolin Hfa] 2 puffs INH Q4H PRN 11/11/14 03/21/18 Lorazepam [Ativan] 1 mg PO Q8HR PRN 09/23/15 03/21/18 Tamsulosin [Flomax] 0.4 mg PO DAILY 06/29/16 03/21/18 Esomeprazole Magnesium [Nexium 20 mg PO DAILY 08/10/16 03/21/18 24Hr] Oxycodone HCl [Oxycontin] 20 mg PO TID 07/04/17 03/21/18 Torsemide 20 mg PO BID MDD extra dose PRN 07/04/17 03/21/18 Oxycodone HCl 10 - 20 mg PO Q4HR PRN MDD 8 tabs 07/26/17 03/21/18 Vitamin B Complex 1 tab PO DAILY 07/26/17 03/21/18 Sennosides [Senna Lax] 2 - 4 tab PO BID PRN 08/10/17 03/21/18 Lidocaine Ointment 5% [Xylocaine 1 appful TOP PRN PRN 08/20/17 03/21/18 Ointment 5%] Melatonin 5 mg PO DAILY PM 08/29/17 03/21/18 Magnesium Oxide [Magnesium] 400 mg PO DAILY 08/30/17 03/21/18 Potassium Chloride [K-Dur] 40 meq PO BID MDD extra with 08/30/17 03/21/18 diuretic Gabapentin [Neurontin] 1,600 mg PO BID 09/27/17 03/21/18 Levetiracetam [Keppra] 500 mg PO BID #30 tablet 11/23/17 03/21/18 Loperamide [Imodium] 2 mg PO Q4HR PRN 12/20/17 03/21/18 Polyethylene Glycol 3350 [Miralax] 17 gm PO DAILY PRN 02/13/18 03/21/18 Ondansetron Odt [Zofran] 4 mg TL Q6H PRN #15 tablet 03/19/18 03/21/18 - Allergies Allergies/Adverse Reactions: Allergies Allergy/AdvReac Type Severity Reaction Status Date / Time BRONWYN Inhibitors Allergy Emesis Verified 03/19/18 18:51 amoxicillin [From Augmentin] Allergy Emesis Verified 03/19/18 18:51 clavulanic acid Allergy Emesis Verified 03/19/18 18:51 [From Augmentin] lisinopril Allergy "THROAT Verified 03/19/18 18:51 SWELLING" Review of Systems - Constitutional Constitutional: reports: Fatigue, Weakness, Poor appetite - Eyes Eyes: reports: Vision loss, Other (Patient has scheduled his cataract surgeries again first 1 is on 04/24 and second 1 in 05/08. This is a huge quality of life issue for him, transportation remains the barrier, his son has agreed to take him on the first 1.) - Ears, Nose & Throat Ears, Nose & Throat: reports: Hearing loss (mild), Postnasal drainage, Hoarseness, Dental decay, Dry mouth - Cardiovascular Cardiovascular: reports: Exertional dyspnea, Decr. exercise tolerance. denies: Chest pain - Respiratory Respiratory: reports: Cough, Sputum production (white frothy at baseline;), SOB with exertion, Other (patient has started smoking more again) - Gastrointestinal Gastrointestinal: reports: Constipation (had been constipated for 5-6 days feels this contributed to nausea; back on bowel meds), Nausea, Poor appetite, Early satiety, Other (has minimal food in home; using Ensure, yogurt). denies: Vomiting - Genitourinary Genitourinary: reports: Frequency, Urgency - Musculoskeletal Musculoskeletal: reports: Muscle pain, Back pain, Muscle aches, Stiffness, Limited range of motion, Muscle weakness, Joint pain, Joint swelling, Assistive devices (using rolling walker in home), Other (reports increase left sided weakness; decreased strength LUE and foot drop on LLE; has not been started with PT, [facility] appointment [facility]; has decline functionally over last few weeks) - Integumentary Integumentary: reports: Other (LE wounds improved getting HH RN; finishing care plan this week) - Neurological Neurological: reports: General weakness, Memory problems, Abnormal gait - Psychiatric Psychiatric: reports: Anxiety (very anxious about insurance issues; won't "know" until Sunday. Having difficulty focusing on anything else) - Endocrine Endocrine: reports: Intolerance to cold - Hematologic/Lymphatic Hematologic/Lymphatic: reports: Recurrent infections (finished AB today for wound infection) - All Other Systems All Other Systems: reports: Reviewed and negative Physical Exam - Vital Signs Temperature: 98.0 C Pulse Rate: 113 Respiratory Rate: 18 O2 Saturation: 91 (ra @ rest) Blood Pressure: 102/58 - Physical Exam General Appearance: positive: Moderate distress, Anxious Eyes Bilateral: positive: Normal inspection ENT: negative: Pharyngeal erythema Neck: positive: No JVD, Trachea midline Cardiovascular: positive: Tachycardia Respiratory: positive: Diminished throughout Abdomen: positive: Soft, Nml bowel sounds Skin: positive: Pallor, Dryness, Bruising, Other (LE have drsgs intact; redness and swelling improved) Extremities: positive: Pedal edema (continues to wrap at night; now has bed so can elevated legs) Neurologic/Psychiatric: positive: Oriented x3, Weakness, Depressed mood/affect. negative: Facial droop, Slurred/abnml speech Palliative Care - POLST Patient has POLST: No Pain: Pain worsening, Location (LE and chest attributed to rib fractures; exacerbated with moving and lifting related to this) Tiredness/Fatigue: Severe (7-10) Drowsiness/Sedation: Moderate (4-6) (awake at night secondary to anxiety; sleeping more in the day) Nausea: Mild (1-3) Depression: Moderate (4-6) Anxiety: Severe (7-10) Dyspnea: Moderate (4-6) Anorexia: Moderate (4-6), Weight loss Sleep: Variable sleep pattern Constipation: Yes, Opoid induced, Unmanaged, Comment (restarting on bowel program) Feelings of wellbeing/Perceived Quality of Life: Fair, Improved Performance Status: Patient ambulatory around the apartment with front wheeled walker. Has very poor activity tolerance, unclear if is going to be able to independently bathe, no equipment in the home. Is using urinal in his room and not ambulating to the bathroom. Minimal meal prep, feels like he needs to settle in before he understands what his new baseline will be. - Palliative Care Discussion: Patient unable to really focus on anything else other than his insurance issue, he is quite anxious, has gotten multiple different answers from different people. He has made multiple calls, is followed through on everything people of asked him to but has no definitive answer. I had had our insurance business analyst look into it, [employer] say he does have insurance through the end of 2018. He is also quite shaken up by the seizure, worried about his "brain". Somewhat rattled by his relocation, and all the things that are falling on him to follow- up on. He is trying to "keep it together". Results - Lab Results Lab results reviewed: Yes Lab and Imaging Results: ED results Impression and Recommendations - Palliative Care Impression: This is a 58-year-old gentleman with adenocarcinoma the lung, currently getting treatment of pembrolizumab, And had been shown to have stable disease. He also has known brain metastases status post CyberKnife, now with a second seizure. Patient very anxious related to social and financial stressors, continues to struggle with lower extremity wounds, weakness, and lower extremity edema. Palliative care providing support regarding pain and symptom management and coordination of care. Recommendations/Counseling Done: 1. Seizures. Did confirm patient has been taking his Keppra, he is fearful of seizures and is actually quite vigilant in taking his antiseizure medication. Patient does have some increased neurological left-sided weakness, had spoken with Dr. Castillo prior to visit, as far as follow-up scans prior to her visit.Message left at [facility], as office hours now closed. Will need to come through oncologist secondary to a marrow group insurance approval process. Counseling provided regarding seizures and seizure precautions. 2. Adenocarcinoma of the lung. Patient does not present with any signs or symptoms of pneumonitis, increased shortness of breath is at baseline and feels more attributed to activity intolerance. Does not seem as acute, will defer to Dr. Castillo and when timing of next CT scan. 3. Acute on chronic pain. Patient with pain exacerbation secondary to moving and increased activity. Patient is taking pain medications as prescribed, new prescription provided for oxycodone secondary to patient's fearfulness of having no insurance after Sunday, OxyContin will not be allowed to be refilled patient okay with gabapentin and oxycodone at this point in time. 4. Deconditioning. Patient's goals are to regain some independence and functional status, has made arrangements for therapy at [facility]. Message left for home health regarding current nursing plan. PT not available for home support. 5. Lower extremity wounds. Redness and swelling does seem improved, patient is finished his antibiotics as of today. Had requested he continue with home health RN to evaluate secondary to his visual limitations, he reports he will have his son Alonso check them, he does feel they are almost healed, and is doing much better. 6. Anxiety. Patient presents with overwhelming anxiety, unfortunately unable to reassure him given that he has spoken to multiple people with multiple different answers. Will need to await final outcome on Sunday to verify if continues to have insurance or is been discontinued. He is working with clinic social welfare clerk as well as a case planner, will defer. 7. Weight loss. Patient appears much thinner, attributes this to just disorganization and difficulty getting settled plus anxiety. Patient's nausea and vomiting currently controlled, encouraged to continue to push fluids but to limit that to 2 L given his propensity for lower extremity edema, CHF, and hyponatremia. He does continue to drink 1 or 2 beers a day, this is his baseline. Encouraged to increase his Ensure during this time until he gets organized. 8. Advanced care planning. Patient continues to interface with the healthcare system quite frequently, ED would like to have a [facility] on file with directions, given patient's high anxiety did not initiate this conversation at this visit. Patient has always been pretty clear he wants to be a full code, and gets quite anxious talking about his cancer and future plans. We will continue to work with patient in the context of having forward and documentation of his wishes Time Spent: 45 minutes with greater than 50% of this done in counseling, follow-up regarding patient's medications, coordination of care, counseling regarding seizure and seizure precautions
== END 2018-03-20 16:01 | disposition home or self-care (01) ==
LOC: PC 16:00
PROVIDERS: ATTEND Nurse Practitioner Adult Health
DX: Z51.5 Encounter for palliative care (principal); C34.90 Malignant neoplasm of unspecified part of unspecified bronchus or lung; C79.31 Secondary malignant neoplasm of brain; R56.9 Unspecified convulsions; G62.9 Polyneuropathy, unspecified; F41.9 Anxiety disorder, unspecified; H54.7 Unspecified visual loss; H91.90 Unspecified hearing loss, unspecified ear; R63.4 Abnormal weight loss; R53.1 Weakness; R53.83 Other fatigue; M21.372 Foot drop, left foot; R35.0 Frequency of micturition; R39.15 Urgency of urination; K59.03 Drug induced constipation; T40.2X5A Adverse effect of other opioids, initial encounter; Z79.51 Long term (current) use of inhaled steroids; Z79.891 Long term (current) use of opiate analgesic
CPT/HCPCS: 99349

== ENCOUNTER 2018-03-26 12:49 | Outpatient (CLI) | payer MEDICAID ==
[2018-03-26] MEDS ORDERED: IOPAMIDOL-300 100 ML VIAL ONE (12:53)
[2018-03-26] MEDS ORDERED: IOPAMIDOL-300 50 ML VIAL ONE (12:53)
[2018-03-26] MEDS ORDERED: IOPAMIDOL-300 50 ML VIAL PO ONE (16:32)
[2018-03-26] MEDS ORDERED: IOPAMIDOL-300 100 ML VIAL IVP ONE (16:32)
--- NOTE | 2018-03-26 16:32 | CT Report ---
Reason: LUNG CANCER, THROMPOCYTOPENIA Procedure Date: 03/26/2018 Accession Number: [id number] / [id number] Procedure: CT - Abdomen/Pelvis W/ CPT Code: FULL RESULT: EXAM: CT CHEST ABDOMEN PELVIS EXAM DATE: 03/26/2018 02:06 PM. CLINICAL HISTORY: Lung cancer, thrombocytopenia. COMPARISONS: ABDOMEN/PELVIS W/ 11/15/2017 4:06 PM CHEST W/ 03/26/2018 1:54 PM CHEST W/ 11/15/2017 4:06 PM. TECHNIQUE: Routine helical CT imaging was performed through the chest, abdomen, and pelvis. IV contrast: ISOVUE 300 100mL. Enteric contrast: No. Reconstructions: Coronal and sagittal. In accordance with CT protocol optimization, one or more of the following dose reduction techniques were utilized for this exam: automated exposure control, adjustment of mA and/or KV based on patient size, or use of iterative reconstructive technique. FINDINGS: Lungs: Advanced emphysematous changes appear similar to May. The spiculated right upper lobe mass now measures 4.0 x 1.7 cm when measured coronally in AP by CC dimensions on image 42 series 5 where it can be seen to cross the fissure (previously 3.9 x 1.8 cm when remeasured coronally in similar fashion, which is stable accounting for differences in technique). Axially, image 31 series 3. The previously seen minimal pleural effusion on the right has enlarged and is now small. There is surrounding septal thickening consistent with spread of disease in the upper lobe. Consolidative change is seen at both lung bases posteriorly. Mediastinum: Thoracic aortic as well as three-vessel coronary calcifications are noted. The heart is stable in appearance without pericardial effusion. There is no thoracic or mediastinal lymphadenopathy. Liver: Normal. No masses. Gallbladder/Bile Ducts: Unremarkable. Spleen: Normal. Pancreas: Normal. Adrenal Glands: Normal. Kidneys: Normal. No masses or hydronephrosis. Peritoneal Cavity/Bowel: Normal. No free fluid, free air or adenopathy. No masses or acute inflammatory process. The appendix is well visualized and normal. Pelvic Organs: There is a large bowel-containing left inguinal and scrotal hernia, mild fat stranding is seen at the inguinal ring. The bladder and visualized pelvic organs are within normal limits. Vasculature: Atherosclerosis without abdominal aortic aneurysm. Bones: No aggressive osseous lesion is identified. Superior endplate Schmorl's node of L4 appears similar to prior. Other: None. IMPRESSION: Interval increase in the malignant right pleural effusion with overall similar size of the primary mass when taking into account coronal projection. No evidence of metastatic disease to the abdomen or pelvis. Correlate mild fat stranding at the inguinal ring to reducibility of the bowel-containing inguinal hernia on physical exam. RADIA
== END 2018-03-26 12:50 | disposition home or self-care (01) ==
LOC: DI 12:49
PROVIDERS: ATTEND Internal Medicine
DX: C34.11 Malignant neoplasm of upper lobe, right bronchus or lung (principal); J91.0 Malignant pleural effusion; K40.90 Unilateral inguinal hernia, without obstruction or gangrene, not specified as recurrent; D69.6 Thrombocytopenia, unspecified
CPT/HCPCS: 71260; 74177; Q9967

== ENCOUNTER 2018-04-04 16:33 | Outpatient (CLI) | payer MEDICAID ==
[2018-04-04] MEDS ORDERED: GADOBUTROL 10 MMOL/10 ML VIAL ONE (17:13)
== END 2018-04-04 16:34 | disposition home or self-care (01) ==
LOC: DI 16:33
PROVIDERS: ATTEND Internal Medicine
DX: Z53.9 Procedure and treatment not carried out, unspecified reason (principal)

== ENCOUNTER 2018-04-06 10:29 | Outpatient (CLI) | payer MEDICAID | END 2018-04-06 10:30 | disposition EMS.NT | LOC: EMS 10:29 | PROVIDERS: ATTEND Surgery | DX: R56.9 Unspecified convulsions (principal) ==

== ENCOUNTER 2018-04-09 14:23 | Day surgery (SDC) | payer MEDICAID ==
[~2018-04-09 14:23] MED LIST: ceFAZolin 2 GM/50 ML 2 GM/50 ML BAG IV ONE
[2018-04-09] MEDS ORDERED: LACTATED RINGERS 1,000 ML IV ONE (14:24)
--- NOTE | 2018-04-09 14:54 | ANESTHESIA ---
Pre-Anesthesia VS, & Labs - Diagnosis Lung cancer - Procedure Port placement Vital Signs: Temp Pulse Resp BP Pulse Ox 36.3 C L 93 18 117/74 97 04/09/18 14:37 04/09/18 14:37 04/09/18 14:37 04/09/18 14:37 04/09/18 14:37 Height 6 ft Weight (kg) 98 kg Body Mass Index 28.5 - NPO >8 hours - Lab Results Lab results reviewed: Yes Home Medications and Allergies Albuterol [Ventolin Hfa] 2 puffs INH Q4H PRN 11/11/14 Lorazepam [Ativan] 1 mg PO Q8HR PRN 09/23/15 Tamsulosin [Flomax] 0.4 mg PO DAILY 06/29/16 Esomeprazole Magnesium [Nexium 24Hr] 20 mg PO DAILY 08/10/16 Oxycodone HCl [Oxycontin] 20 mg PO TID 07/04/17 Oxycodone HCl 10 - 20 mg PO Q4HR PRN MDD 8 tabs 07/26/17 Vitamin B Complex 1 tab PO DAILY 07/26/17 Sennosides [Senna Lax] 2 - 4 tab PO BID PRN 08/10/17 Lidocaine Ointment 5% [Xylocaine Ointment 5%] 1 appful TOP PRN PRN 08/20/17 Melatonin 5 mg PO DAILY PM 08/29/17 Magnesium Oxide [Magnesium] 400 mg PO DAILY 08/30/17 Potassium Chloride [K-Dur] 40 meq PO BID MDD extra with diuretic 08/30/17 Gabapentin [Neurontin] 1,600 mg PO BID 09/27/17 Loperamide [Imodium] 2 mg PO Q4HR PRN 12/20/17 Polyethylene Glycol 3350 [Miralax] 17 gm PO DAILY PRN 02/13/18 Allergies/Adverse Reactions: Allergies Allergy/AdvReac Type Severity Reaction Status Date / Time BRONWYN Inhibitors Allergy Emesis Verified 03/19/18 18:51 amoxicillin [From Augmentin] Allergy Emesis Verified 03/19/18 18:51 clavulanic acid Allergy Emesis Verified 03/19/18 18:51 [From Augmentin] lisinopril Allergy "THROAT Verified 03/19/18 18:51 SWELLING" Anes History & Medical History - Medical History Cardiovascular: reports: Congestive heart failure, Hypertension, Coronary artery disease, Peripheral Vascular Disease Pulmonary: reports: COPD, Shortness of breath, Other Gastrointestinal: reports: GERD, Chronic constipation, Diverticulitis Urinary: reports: Benign prostate hypertrophy, Incontinence, Nocturia, Frequency Neuro: reports: Seizure disorder, Other Musculoskeletal: reports: Chronic back pain, Other Endocrine/Autoimmune: reports: None Blood Disorders: reports: None Skin: reports: None Smoking Status: Current every day smoker - Surgical History Cardiothoracic: Cardiac catheterization Neurologic: Craniotomy Orthopedic: Amputation Other Past Surgical History: Craniotomy for tumor Exam General: Alert, Oriented x3, Cooperative, No acute distress Dental: Other (edentulous) Mouth Openin Fingerbreadth Neck Mobility: Limited Mallampati classification: IV Thyromental Distance: 4-6 cm Respiratory: Lungs clear, Normal breath sounds, No respiratory distress, No accessory muscle use Cardiovascular: Regular rate, Normal S1, Normal S2, No murmurs Mental/Cognitive Status: Alert/Oriented X3, Normal for patient Cognitive Status: Within normal limits Plan Anesthesia Type: MAC Consent for Procedure(s) Verified and Reviewed: Yes Code Status: Attempt Resuscitation ASA classification: 4-Incapacitating disease Is this case an emergency?: No
[2018-04-09] MEDS ORDERED: fentaNYL 100 MCG/2 ML VIAL ONE (15:04)
[2018-04-09] MEDS ORDERED: BUPIVACAINE 0.5% PF 30 ML VIAL SUBQ ONE (16:10)
[2018-04-09] MEDS ORDERED: HYDROmorphone 0.5 MG/0.5 ML SYRINGE IVP PRN (16:22)
[2018-04-09] MEDS ORDERED: HYDROcod/ACETAM 5/325 MG TABLET PO PRN (16:22)
[2018-04-09] MEDS ORDERED: ONDANSETRON 4 MG/2 ML VIAL IVP PRN (16:22)
--- NOTE | 2018-04-09 16:27 | OPERATIVE REPORT ---
Operative Report - General Procedure Date: 04/09/18 Planned Procedure: Port-A-Cath placement Pre-Op Diagnosis: Metastatic lung cancer Procedure Performed: Left subclavian vein Port-A-Cath placement Post Op Diagnosis: Same - Procedure Note Primary Surgeon: Daniel Briones MD Anesthesia Provider: Lydia Sanchez CRNA Anesthesia Technique: Local (30 mL of half percent Marcaine), MAC IV Fluids (mL): 500 Estimated Blood Loss (mL): 5 Complications: None, chest x-ray in room showing good placement in the right atrium/right supracardiac vena cava. [place] not seen well and will be seen on postop chest x- ray but no obvious pneumothorax seen. - Other Other Information/Narrative: OPERATIVE DESCRIPTION/REPORT: After verbal and written informed consent was obtained detailing the risks of infection, bleeding requiring transfusion with its risks, nerve injury, and , and after I met with the patient confirming the surgery and the site of the surgery, the patient was brought to the operative suite and placed supine on the operating table. Great care was taken to avoid pressure points to prevent pressure necrosis or nerve injury. Monitoring devices were applied along with TEDs and pneumatic compressive stockings (to prevent DVT). The patient received preoperative antibiotics for surgical prophylaxis. Lydia Sanchez CRNA sedated and anesthetized the patient for the entire procedure. The patient was prepped and draped in the usual sterile manner. A "time in" then confirmed that the patient was identified with 3 identifiers (name, date and medical record number), the history and physical was in the chart, the signed consent confirming the procedure was in the chart, the patient was in the correct position, the aforementioned prophylactic measures were in place or given, we had the correct personnel and equipment to complete the procedure and that anesthesia, surgery and nursing were given an opportunity to express any concerns. With the agreement of everyone in the room, we proceeded with the operation. After the subclavian region was anesthetized using % marcaine and the patient placed in Trendelenberg position, an Angiodynamics Smartport kit (UPN #[id number], Lot #[id number]) was opened. The finder needle was inserted into the subclavian vein taking great care to place it just under the clavicle in order to minimize the risk of pneumothorax. When good venous blood return was obtained, the wire was placed through the needle and into the vein without difficulty. Cardiac irritability confirmed that the catheter was correctly going down towards the heart. Below and lateral to the needle insertion site, the area was anesthetized again using % marcaine and a transverse incision was made just large enough to accommodate the port. This incision was taken down to the fascia using sharp dissection and the area for the port was created using blunt downward dissection. Meticulous hemostasis was obtained using Bovie electrocautery. A knife was inserted along the wire to widen the insertion site and this was further dilated using a Purvi. The port was flushed with heparinized saline and placed in the pouch and the catheter was then passed to the needle opening using the passer. The catheter was then measured against the patients anterior chest and cut so that the tip would lie 2 cm below the manubrial-sternal junction. The port was secured to the fascia using a 3-0 Prolene on the side of the opening of the port. The catheter was then wiped and wrapped with a heparinized soaked 4x4. The dilator and sheath were then carefully inserted over the wire and the dilator and wire withdrawn. The catheter was then inserted into the sheath and the sheath was broken away from the catheter leaving the catheter in place in the vein. An X-ray confirmed placement of the catheter tip in the right atrium/supracardiac vena cava without pneumothorax. The very apex of the lung was not seen on the x-ray and will be obtained in a chest x-ray ordered for the recovery room. Using a Hueber needle the port was accessed and good blood return as well as easy flush was noted. The subcutaneous tissue was approximated using 3-0 Vicryl and the skin incisions were approximated with 4-0 Monocryl in a subcuticular fashion. The skin prep was washed off and prepped with benzoin. Steristrips were applied. At this point a time out was performed that confirmed that all the counts were correct, the procedure that was performed, the blood loss, the IV fluids administered, and the patients condition. A dressing was placed on the wound. Having tolerated the procedure well, the patient was taken to short stay in good and stable condition. The patient was instructed that the Portacath could be used immediately. [employer] disclaimer: This document was created in part using voice recognition technology. Because of the inherent limitations of the system ([employer]'s [employer] user manual states that the licensee understands that speech recognition is a statistical process and that recognition errors are inherent in the process), occasional same sounding word substitutions and grammatical errors do occur and persist despite proofreading. Please read this document for context.
--- NOTE | 2018-04-09 16:56 | XRAY Report ---
Reason: line placement Procedure Date: 04/09/2018 Accession Number: [id number] / [id number] Procedure: XR - Chest for Line Placement CPT Code: FULL RESULT: EXAM: CHEST RADIOGRAPHY EXAM DATE: 04/09/2018 04:22 PM. CLINICAL HISTORY: Line placement. COMPARISON: 03/19/2018. TECHNIQUE: 1 view. FINDINGS: Left chest port catheter has been placed with tip appropriately positioned in the distal superior vena cava. The small right pleural effusion has mildly increased. Right mid and lower lung opacities have mildly increased as well. Mild reticulation in the left midlung. No left pleural effusion. No pneumothorax. IMPRESSION: 1. Appropriately positioned chest port catheter. No pneumothorax. 2. Mildly increased small right pleural effusion and adjacent opacities. RADIA
[2018-04-09] MEDS ORDERED: HYDROcod/ACETAM 5/325 MG TABLET ONE (17:16)
[2018-04-09 17:28] VITALS: BP 119/70
== END 2018-04-09 14:24 | disposition home or self-care (01) ==
LOC: SDS 14:23
PROVIDERS: ATTEND Surgery
PROC: 02HV33Z Insertion of Infusion Device into Superior Vena Cava, Percutaneous Approach (ICD-10-PCS; 2018-04-09)
PROC: 0JH60WZ Insertion of Totally Implantable Vascular Access Device into Chest Subcutaneous Tissue and Fascia, Open Approach (ICD-10-PCS; principal; 2018-04-09 14:30)
DX: C34.90 Malignant neoplasm of unspecified part of unspecified bronchus or lung (principal); C79.31 Secondary malignant neoplasm of brain; I25.10 Atherosclerotic heart disease of native coronary artery without angina pectoris; I12.9 Hypertensive chronic kidney disease with stage 1 through stage 4 chronic kidney disease, or unspecified chronic kidney disease; N18.3 Chronic kidney disease, stage 3 (moderate); J44.9 Chronic obstructive pulmonary disease, unspecified; F17.210 Nicotine dependence, cigarettes, uncomplicated; Z86.39 Personal history of other endocrine, nutritional and metabolic disease; Z79.899 Other long term (current) drug therapy
CPT/HCPCS: 36561; A9270; C1788; J0690; J7120; 71045

== ENCOUNTER 2018-04-15 22:52 | Outpatient (CLI) | payer MEDICAID | END 2018-04-15 22:53 | disposition critical access hospital (66) | LOC: EMS 22:52 | PROVIDERS: ATTEND Surgery | DX: R53.1 Weakness (principal); R52 Pain, unspecified | CPT/HCPCS: A0425; A0429; A0999 ==

== ENCOUNTER 2018-04-15 23:27 | Emergency (ER) | payer MEDICAID ==
--- NOTE | 2018-04-16 00:48 | ED Physician Documentation ---
History of Present Illness - Stated complaint Stated Complaint: WEAKNESS - Chief complaint Chief Complaint: General - History obtained from History obtained from: Patient - History of Present Illness Timing: Chronic Pain level now: 6 Improved by: nothing Worsened by: ambulating - Additonal information Additional information: Patient has multiple complaints over various time frames. More pain than usual in my feet and joints. Also tired, weak, shaky. My roommate said I looked pale. He complains of nausea and vomiting and Poor appetite for past few days. He complains of intermittent abdominal cramping for past one to 2 weeks. Review of Systems Constitutional: reports: Myalgias, Fatigue, Weight Loss. denies: Fever, Chills, Sweats Eyes: reports: Reviewed and negative Throat: denies: Sore throat Cardiac: reports: Pedal edema. denies: Chest pain / pressure Respiratory: denies: Dyspnea, Cough GI: reports: Abdominal Pain, Nausea, Vomiting : denies: Dysuria, Frequency Musculoskeletal: reports: Neck pain, Back pain, Extremity pain, Joint pain, Extremity swelling, Joint swelling, Pain with weight bearing, Other (c/o diffuse pain, neck, back, all of my joints, all extremities) Neurologic: reports: Generalized weakness. denies: Focal weakness, Numbness, Altered mental status, Headache PD PAST MEDICAL HISTORY - Past Medical History Past Medical History: Yes Cardiovascular: Congestive heart failure, Hypertension, Coronary artery disease, Peripheral Vascular Disease Respiratory: COPD, Shortness of breath, Other Neuro: Seizure disorder, Other Endocrine/Autoimmune: None GI: GERD, Chronic constipation, Diverticulitis : Benign prostate hypertrophy, Incontinence, Nocturia, Frequency HEENT: Chronic vision loss Psych: Anxiety Musculoskeletal: Chronic back pain, Other Derm: None Other Past Medical History: USES WALKER/ CANE w/ ambulation... - Past Surgical History Past Surgical History: Yes Ortho: Amputation Cardiovascular: Cardiac catheterization Neuro: Craniotomy - Present Medications Home Medications: Ambulatory Orders Medication Instructions Recorded Confirmed Albuterol [Ventolin Hfa] 2 puffs INH Q4H PRN 11/11/14 03/27/18 Lorazepam [Ativan] 1 mg PO Q8HR PRN 09/23/15 03/27/18 Tamsulosin [Flomax] 0.4 mg PO DAILY 06/29/16 03/27/18 Esomeprazole Magnesium [Nexium 20 mg PO DAILY 08/10/16 03/27/18 24Hr] Oxycodone HCl [Oxycontin] 20 mg PO TID 07/04/17 03/27/18 Oxycodone HCl 10 - 20 mg PO Q4HR PRN MDD 8 tabs 07/26/17 03/27/18 Vitamin B Complex 1 tab PO DAILY 07/26/17 03/27/18 Sennosides [Senna Lax] 2 - 4 tab PO BID PRN 08/10/17 03/27/18 Lidocaine Ointment 5% [Xylocaine 1 appful TOP PRN PRN 08/20/17 03/27/18 Ointment 5%] Melatonin 5 mg PO DAILY PM 08/29/17 03/27/18 Magnesium Oxide [Magnesium] 400 mg PO DAILY 08/30/17 03/27/18 Potassium Chloride [K-Dur] 40 meq PO BID MDD extra with 08/30/17 03/27/18 diuretic Gabapentin [Neurontin] 1,600 mg PO BID 09/27/17 03/27/18 Levetiracetam [Keppra] 500 mg PO BID #30 tablet 11/23/17 03/27/18 Loperamide [Imodium] 2 mg PO Q4HR PRN 12/20/17 03/27/18 Polyethylene Glycol 3350 [Miralax] 17 gm PO DAILY PRN 02/13/18 03/27/18 Ondansetron Odt [Zofran] 4 mg TL Q6H PRN #15 tablet 03/19/18 03/27/18 - Allergies Allergies/Adverse Reactions: Allergies Allergy/AdvReac Type Severity Reaction Status Date / Time BRONWYN Inhibitors Allergy Emesis Verified 04/15/18 23:38 amoxicillin [From Augmentin] Allergy Emesis Verified 04/15/18 23:38 clavulanic acid Allergy Emesis Verified 04/15/18 23:38 [From Augmentin] lisinopril Allergy "THROAT Verified 04/15/18 23:38 SWELLING" - Social History Does the pt smoke?: Yes Smoking Status: Current every day smoker Does the pt drink ETOH?: Yes Does the pt have substance abuse?: No - Immunizations Immunizations are current?: Yes - POLST Patient has POLST: No POLST Status: Full Code PD ED PE NORMAL - Vitals Vital signs reviewed: Yes - General General: Alert and oriented X 3, No acute distress, Well developed/nourished - HEENT HEENT: PERRL, EOMI, Moist mucous membranes - Neck Neck: Supple, no meningeal sign - Cardiac Cardiac: RRR - Respiratory Respiratory: No respiratory distress, Other (course breath sounds bilateral bases) - Abdomen Abdomen: Soft, Non tender - Derm Derm: Normal color, Warm and dry - Neuro Neuro: Alert and oriented X 3, wheat buyer 2-12 intact, No motor deficit, No sensory deficit, Normal speech Eye Opening: Spontaneous Motor: Obeys Commands Verbal: Oriented GCS Score: 15 PD ED PE EXPANDED - Extremities Extremities: Pedal edema bilateral Results - Vitals Vitals: Oxygen O2 Source Room air Oxygen Flow Rate 2 - EKG (time done) No standard instances Rate: Rate (enter#) (81) Rhythm: NSR [place]: Normal Intervals: Normal MS, Wide QRS (NSIVCD) QRS: Normal Ischemia: Normal ST segments - Labs Labs: Laboratory Tests 04/16/18 04/16/18 04/16/18 01:15 02:22 02:22 WBC 4.4 L RBC 3.22 L Hgb 10.5 L Hct 30.0 L MCV 93.2 MCH 32.7 H MCHC 35.1 RDW 14.6 Plt Count 145 MPV 6.8 L Neut # (Auto) 2.6 Lymph # (Auto) 1.0 L [place] # (Auto) 0.5 Eos # (Auto) 0.3 Baso # (Auto) 0.0 Absolute Nucleated RBC 0.00 Nucleated RBC % 0.1 Sodium 123 L Potassium 3.7 Chloride 92 L Carbon Dioxide 23 Anion Gap 8.0 BUN < 5 L Creatinine 0.6 Estimated GFR (MDRD) 139 Glucose 93 Calcium 8.1 L Total Bilirubin 0.5 AST 28 ALT < 10 L Alkaline Phosphatase 101 Total Protein 6.3 L Albumin 3.3 Globulin 3.0 Albumin/Globulin Ratio 1.1 Lipase 25 Urine Color YELLOW Urine Clarity CLEAR Urine pH 6.0 Ur Specific [place] <=1.005 Urine Protein NEGATIVE Urine Glucose (UA) NEGATIVE Urine Ketones NEGATIVE Urine Occult Blood NEGATIVE Urine Nitrite NEGATIVE Urine Bilirubin NEGATIVE Urine Urobilinogen 0.2 (NORMAL) Ur Leukocyte Esterase NEGATIVE Ur Microscopic Review NOT INDICATED Urine Culture Comments NOT INDICATED - Rads (name of study) abdominal xrays Radiology: Prelim report reviewed, See rad report PD MEDICAL DECISION MAKING - ED course Complexity details: reviewed old records, reviewed results, re-evaluated patient, considered differential, d/w patient ED course: moderate hyponatremia noted, but sodium level and H+P do not suggest need for hsopitalization at this time. given 1 liter NS bolus to improve sodium level and he appeared well on reevaluation, says he feels better and is comfortable going home. instructed to return immediately if worse in any way, and to f/u with pmd for reevaluation, particularly regarding his hyponatremia. patient indicated to me this is not a new problem for him (and previous blood tests corroborate this), and that he was given fluid restriction parameters for both his CHF as well as his low sodium levels. Departure - Departure Disposition: 01 Home, Self Care Clinical Impression: Generalized weakness, Hyponatremia Condition: Good Instructions: ED Hyponatremia, ED Weakness [facility] Follow-Up: Yessica Patel ARNP [Primary Care Provider] - Within 3 Days Discharge Date/Time: 04/16/18 07:22
[2018-04-16] MEDS ORDERED: ONDANSETRON ODT 4 MG TABLET TL STA (01:02)
[2018-04-16 01:35] LABS: BILIRUBIN,URINE NEGATIVE (NEGATIVE); GLUCOSE, URINE (UA) NEGATIVE (NEGATIVE); KETONES,URINE (UA) NEGATIVE (NEGATIVE); LEUKOCYTE ESTERASE, URINE NEGATIVE (NEGATIVE); NITRITE,URINE NEGATIVE (NEGATIVE); OCCULT BLOOD,URINE NEGATIVE (NEGATIVE); PROTEIN,URINE NEGATIVE (NEGATIVE); UROBILINOGEN,URINE 0.2 (NORMAL) E.U./dL (NORMAL)
[2018-04-16 01:36] LABS: CLARITY,URINE CLEAR (CLEAR)
[2018-04-16 02:32] LABS: BASOPHILS % (AUTO) 1.1 %; EOSINOPHILS # (AUTO) 0.3 10^3/uL (0.0-0.7); EOSINOPHILS % (AUTO) 5.7 %; HGB - HEMOGLOBIN 10.5 g/dL (14.0-18.0); LYMPHOCYTES % (AUTO) 23.4 %; MEAN CORPUSCULAR HEMOGLOBIN 32.7 pg (27.0-31.0); MEAN CORPUSCULAR HGB CONC 35.1 g/dL (32.0-36.0); MEAN CORPUSCULAR VOLUME 93.2 fL (80.0-94.0); MEAN PLATELET VOLUME 6.8 fL (7.4-11.4); MONOCYTES # (AUTO) 0.5 10^3/uL (0.0-1.0); MONOCYTES % (AUTO) 10.8 %; NEUTROPHILS # (AUTO) 2.6 10^3/uL (1.5-6.6); PLT - PLATELET COUNT 145 10^3/uL (130-450); RED BLOOD COUNT 3.22 10^6/uL (4.70-6.10); RED CELL DISTRIBUTION WIDTH 14.6 % (12.0-15.0); WHITE BLOOD COUNT 4.4 x10^3/uL (4.8-10.8)
[2018-04-16 02:46] LABS: ALBUMIN 3.3 g/dL (3.2-5.5); ALBUMIN/GLOBULIN RATIO 1.1 (1.0-2.2); ALKALINE PHOSPHATASE 101 IU/L (42-121); ALT ALANINE AMINOTRANSFERASE < 10 IU/L (10-60); AST ASPARTATE AMINOTRANSFERASE 28 IU/L (10-42); BILIRUBIN,TOTAL 0.5 mg/dL (0.2-1.0); BUN - BLOOD UREA NITROGEN < 5 mg/dL (6-20); CALCIUM 8.1 mg/dL (8.5-10.3); CARBON DIOXIDE - CO2 23 mmol/L (21-32); CHLORIDE 92 mmol/L (101-111); CREATININE 0.6 mg/dL (0.6-1.2); GFR - MDRD 139 (>89); GLUCOSE 93 mg/dL (70-100); LIPASE 25 U/L (22-51); SODIUM 123 mmol/L (135-145); TOTAL PROTEIN 6.3 g/dL (6.7-8.2)
[2018-04-16] MEDS ORDERED: SODIUM CHLORIDE 0.9% 1,000 ML IV STA (02:58)
--- NOTE | 2018-04-16 04:23 | XRAY Report ---
Reason: abd. pain, n/v Procedure Date: 04/16/2018 Accession Number: [id number] / [id number] Procedure: XR - Abdomen Acute CPT Code: FULL RESULT: EXAM: ABDOMINAL SERIES AND PA CHEST EXAM DATE: 04/16/2018 04:06 AM. CLINICAL HISTORY: Abd. pain, n/v. COMPARISON: CHEST FOR LINE PLACEMENT 04/09/2018 4:10 PM. TECHNIQUE: 2 views abdomen and 1 view chest. FINDINGS: CHEST: Lungs/Pleura: Patchy bilateral parenchymal disease, stable. Small right pleural effusion. Mediastinum: Within exam limitations, cardiomediastinal contour is normal. Stable left subclavian port. ABDOMEN: Bowel Gas Pattern: Within normal limits. No dilated loops or abnormal fluid levels. Free Air: None. Other: None. IMPRESSION: Stable right greater than left parenchymal disease and small right effusion. No evidence of bowel obstruction or perforation. RADIA
[2018-04-16 07:22] VITALS: BP 118/65
== END 2018-04-16 07:22 | disposition home or self-care (01) ==
LOC: EDUNIT# → ED 23:27
DX: R53.1 Weakness (principal); E87.1 Hypo-osmolality and hyponatremia; I11.0 Hypertensive heart disease with heart failure; I50.9 Heart failure, unspecified; I25.10 Atherosclerotic heart disease of native coronary artery without angina pectoris; I73.9 Peripheral vascular disease, unspecified; I45.9 Conduction disorder, unspecified; F17.200 Nicotine dependence, unspecified, uncomplicated
CPT/HCPCS: 36415; 74022; 80053; 81003; 83690; 85025; 93005; 96361; 96374; 99283; 99284; Q0162; 81001; 87086

== ENCOUNTER 2018-04-17 12:24 | Outpatient (CLI) | payer MEDICAID ==
--- NOTE | 2018-04-17 18:52 | XRAY Report ---
Reason: NECK PAIN Procedure Date: 04/17/2018 Accession Number: [id number] / [id number] Procedure: XR - Cervical Spine 2 View CPT Code: FULL RESULT: EXAM: CERVICAL SPINE RADIOGRAPHY. EXAM DATE: 04/17/2018 12:58 PM. CLINICAL HISTORY: Neck pain. COMPARISONS: Cervical spine CT without 08/20/2017 3:39 PM. TECHNIQUE: 5 views. FINDINGS: Alignment: Marked kyphosis of the thoracic spine such that the cervical spine is almost horizontal in orientation. Bones: The cervical vertebral bodies and posterior elements are well visualized from the skull base through C7-T1. No fractures or bone lesions. Disks: Stable mild narrowing C4-C5 and C5-C6 with tiny osteophytes, indicating very mild degenerative disk disease. Facets: No degenerative disease. Soft Tissues: Left subclavian Port-A-Cath. IMPRESSION: No significant abnormality. RADIA
--- NOTE | 2018-04-18 08:30 | XRAY Report ---
Reason: NECK BACK PAIN Procedure Date: 04/17/2018 Accession Number: [id number] / [id number] Procedure: XR - Thoracic Spine 2 View CPT Code: FULL RESULT: EXAM: THORACIC SPINE RADIOGRAPHY EXAM DATE: 04/17/2018 12:58 PM. CLINICAL HISTORY: NECK BACK PAIN. COMPARISON: CHEST FOR LINE PLACEMENT 04/09/2018 4:10 PM CERVICAL SPINE 2 VIEW 04/17/2018 12:36 PM CHEST W/ 03/26/2018 1:54 PM. TECHNIQUE: 2 views. FINDINGS: Alignment: No evidence of dislocation. There is thoracic spine kyphosis. Bones: Bones are osteopenic. No clear evidence of acute fracture or focal bony lesion. Detail of the thoracic spine is somewhat limited. Disks: Disk spacing is maintained. Soft Tissues: There is focal opacity within the posterior right chest which could represent infiltrate. No pleural effusions. IMPRESSION: Negative thoracic spine radiography. No evidence of fracture or dislocation. No evidence of focal bony lesion. RADIA
== END 2018-04-17 12:25 | disposition home or self-care (01) ==
LOC: DI 12:24
PROVIDERS: ATTEND Nurse Practitioner Family
DX: M50.321 Other cervical disc degeneration at C4-C5 level (principal); M40.294 Other kyphosis, thoracic region
CPT/HCPCS: 72040; 72070

== ENCOUNTER 2018-04-21 23:09 | Outpatient (CLI) | payer MEDICAID | END 2018-04-21 23:10 | disposition critical access hospital (66) | LOC: EMS 23:09 | PROVIDERS: ATTEND Surgery | DX: M54.2 Cervicalgia (principal); R68.89 Other general symptoms and signs; W06.XXXA Fall from bed, initial encounter; Y92.092 Bedroom in other non-institutional residence as the place of occurrence of the external cause | CPT/HCPCS: A0425; A0429; A0999 ==

== ENCOUNTER 2018-04-21 23:45 | Emergency (ER) | payer MEDICAID ==
--- NOTE | 2018-04-21 23:54 | ED Physician Documentation ---
History of Present Illness - Stated complaint Stated Complaint: FALL/NECK PAIN - History obtained from History obtained from: Patient, EMS - History of Present Illness Timing: How many days ago (3-4) Improved by: nothing Worsened by: no exacerbating factors - Additonal information Additional information: IRAIS with multiple c/o, similar to when he presented to this ED 04/15. c/o nausea, generalized weakness, shaky (per patient), generalized pain that is chronic but worse than usual. he also says he fell either tonight or last night when getting out of bed, thinks he might have hit his head but isnt certain. Review of Systems Constitutional: reports: Fatigue. denies: Fever, Chills, Sweats Eyes: reports: Reviewed and negative Cardiac: reports: Reviewed and negative Respiratory: reports: Reviewed and negative GI: reports: Nausea, Vomiting. denies: Abdominal Pain : reports: Frequency. denies: Dysuria Musculoskeletal: reports: Neck pain, Extremity pain Neurologic: reports: Generalized weakness, Headache Endocrine: reports: Polyuria PD PAST MEDICAL HISTORY - Past Medical History Cardiovascular: Congestive heart failure, Hypertension, Coronary artery disease, Peripheral Vascular Disease Respiratory: COPD, Shortness of breath, Other Neuro: Seizure disorder, Other Endocrine/Autoimmune: None GI: GERD, Chronic constipation, Diverticulitis : Benign prostate hypertrophy, Incontinence, Nocturia, Frequency HEENT: Chronic vision loss Psych: Anxiety Musculoskeletal: Chronic back pain, Other Derm: None - Past Surgical History Past Surgical History: Yes Ortho: Amputation Cardiovascular: Cardiac catheterization Neuro: Craniotomy - Present Medications Home Medications: Ambulatory Orders Medication Instructions Recorded Confirmed Albuterol [Ventolin Hfa] 2 puffs INH Q4H PRN 11/11/14 03/27/18 Lorazepam [Ativan] 1 mg PO Q8HR PRN 09/23/15 03/27/18 Tamsulosin [Flomax] 0.4 mg PO DAILY 06/29/16 03/27/18 Esomeprazole Magnesium [Nexium 20 mg PO DAILY 08/10/16 03/27/18 24Hr] Oxycodone HCl [Oxycontin] 20 mg PO TID 07/04/17 03/27/18 Oxycodone HCl 10 - 20 mg PO Q4HR PRN MDD 8 tabs 07/26/17 03/27/18 Vitamin B Complex 1 tab PO DAILY 07/26/17 03/27/18 Sennosides [Senna Lax] 2 - 4 tab PO BID PRN 08/10/17 03/27/18 Lidocaine Ointment 5% [Xylocaine 1 appful TOP PRN PRN 08/20/17 03/27/18 Ointment 5%] Melatonin 5 mg PO DAILY PM 08/29/17 03/27/18 Magnesium Oxide [Magnesium] 400 mg PO DAILY 08/30/17 03/27/18 Potassium Chloride [K-Dur] 40 meq PO BID MDD extra with 08/30/17 03/27/18 diuretic Gabapentin [Neurontin] 1,600 mg PO BID 09/27/17 03/27/18 Levetiracetam [Keppra] 500 mg PO BID #30 tablet 11/23/17 03/27/18 Loperamide [Imodium] 2 mg PO Q4HR PRN 12/20/17 03/27/18 Polyethylene Glycol 3350 [Miralax] 17 gm PO DAILY PRN 02/13/18 03/27/18 Ondansetron Odt [Zofran] 4 mg TL Q6H PRN #15 tablet 03/19/18 03/27/18 - Allergies Allergies/Adverse Reactions: Allergies Allergy/AdvReac Type Severity Reaction Status Date / Time BRONWYN Inhibitors Allergy Emesis Verified 04/15/18 23:38 amoxicillin [From Augmentin] Allergy Emesis Verified 04/15/18 23:38 clavulanic acid Allergy Emesis Verified 04/15/18 23:38 [From Augmentin] lisinopril Allergy "THROAT Verified 04/15/18 23:38 SWELLING" - Social History Does the pt smoke?: Yes Smoking Status: Current every day smoker Does the pt drink ETOH?: Yes Does the pt have substance abuse?: No - Immunizations Immunizations are current?: Yes - POLST Patient has POLST: No POLST Status: Full Code PD ED PE NORMAL - Vitals Vital signs reviewed: Yes - General General: Alert and oriented X 3, No acute distress, Well developed/nourished - HEENT HEENT: Atraumatic, PERRL, EOMI, Moist mucous membranes - Neck Neck: Supple, no meningeal sign, No bony TTP - Cardiac Cardiac: RRR, No murmur - Respiratory Respiratory: No respiratory distress, Clear bilaterally - Abdomen Abdomen: Soft, Non tender - Derm Derm: Normal color, Warm and dry, No rash - Neuro Neuro: Alert and oriented X 3, ham facer 2-12 intact, No motor deficit, No sensory deficit, Normal speech Eye Opening: Spontaneous Motor: Obeys Commands Verbal: Oriented GCS Score: 15 PD ED PE EXPANDED - Extremities Extremities: Pedal edema bilateral Results - Vitals Vitals: Vital Signs - 24 hr 04/22/18 04/22/18 04/22/18 00:01 02:39 05:42 Temperature 36.9 C Heart Rate 81 82 88 Respiratory 20 20 20 Rate Blood Pressure 145/88 H 114/72 135/97 H O2 Saturation 96 94 94 Oxygen O2 Source Room air - Labs Labs: Laboratory Tests 04/22/18 04/22/18 04/22/18 00:35 01:34 01:34 WBC 4.8 RBC 3.46 L Hgb 11.4 L Hct 31.8 L MCV 92.1 MCH 32.9 H MCHC 35.7 RDW 15.3 H Plt Count 161 MPV 7.0 L Neut # (Auto) 2.8 Lymph # (Auto) 1.1 L [place] # (Auto) 0.6 Eos # (Auto) 0.3 Baso # (Auto) 0.0 Absolute Nucleated RBC 0.00 Nucleated RBC % 0.1 PT 14.5 H INR 1.3 H APTT 44.5 H Sodium Potassium Chloride Carbon Dioxide Anion Gap BUN Creatinine Estimated GFR (MDRD) Glucose Lactic Acid Calcium Total Bilirubin AST ALT Alkaline Phosphatase B-Natriuretic Peptide Total Protein Albumin Globulin Albumin/Globulin Ratio Lipase TSH Urine Color YELLOW Urine Clarity CLEAR Urine pH 7.0 Ur Specific [place] <=1.005 Urine Protein NEGATIVE Urine Glucose (UA) NEGATIVE Urine Ketones NEGATIVE Urine Occult Blood NEGATIVE Urine Nitrite NEGATIVE Urine Bilirubin NEGATIVE Urine Urobilinogen 0.2 (NORMAL) Ur Leukocyte Esterase NEGATIVE Ur Microscopic Review NOT INDICATED Urine Culture Comments NOT INDICATED 04/22/18 04/22/18 04/22/18 01:34 01:34 01:34 WBC RBC Hgb Hct MCV MCH MCHC RDW Plt Count MPV Neut # (Auto) Lymph # (Auto) [place] # (Auto) Eos # (Auto) Baso # (Auto) Absolute Nucleated RBC Nucleated RBC % PT INR APTT Sodium 125 L Potassium 3.8 Chloride 90 L Carbon Dioxide 25 Anion Gap 10.0 BUN 6 Creatinine 0.7 Estimated GFR (MDRD) 117 Glucose 87 Lactic Acid 1.1 Calcium 8.7 Total Bilirubin 0.9 AST 32 ALT < 10 L Alkaline Phosphatase 111 B-Natriuretic Peptide 169 H Total Protein 7.0 Albumin 3.7 Globulin 3.3 Albumin/Globulin Ratio 1.1 Lipase 24 TSH Urine Color Urine Clarity Urine pH Ur Specific [place] Urine Protein Urine Glucose (UA) Urine Ketones Urine Occult Blood Urine Nitrite Urine Bilirubin Urine Urobilinogen Ur Leukocyte Esterase Ur Microscopic Review Urine Culture Comments 04/22/18 01:34 WBC RBC Hgb Hct MCV MCH MCHC RDW Plt Count MPV Neut # (Auto) Lymph # (Auto) [place] # (Auto) Eos # (Auto) Baso # (Auto) Absolute Nucleated RBC Nucleated RBC % PT INR APTT Sodium Potassium Chloride Carbon Dioxide Anion Gap BUN Creatinine Estimated GFR (MDRD) Glucose Lactic Acid Calcium Total Bilirubin AST ALT Alkaline Phosphatase B-Natriuretic Peptide Total Protein Albumin Globulin Albumin/Globulin Ratio Lipase TSH 4.86 Urine Color Urine Clarity Urine pH Ur Specific [place] Urine Protein Urine Glucose (UA) Urine Ketones Urine Occult Blood Urine Nitrite Urine Bilirubin Urine Urobilinogen Ur Leukocyte Esterase Ur Microscopic Review Urine Culture Comments - Rads (name of study) [facility] Radiology: Prelim report reviewed, See rad report PD MEDICAL DECISION MAKING - ED course Complexity details: reviewed results, re-evaluated patient, considered differential, d/w patient Departure - Departure Disposition: 01 Home, Self Care Clinical Impression: Weakness, Hyponatremia Condition: Good Instructions: ED Hyponatremia, ED Weakness [facility] Follow-Up: [facility] [Provider Group] [facility] [Provider Group] Discharge Date/Time: 04/22/18 06:23
[2018-04-22 00:58] LABS: BILIRUBIN,URINE NEGATIVE (NEGATIVE); GLUCOSE, URINE (UA) NEGATIVE (NEGATIVE); KETONES,URINE (UA) NEGATIVE (NEGATIVE); LEUKOCYTE ESTERASE, URINE NEGATIVE (NEGATIVE); NITRITE,URINE NEGATIVE (NEGATIVE); OCCULT BLOOD,URINE NEGATIVE (NEGATIVE); PROTEIN,URINE NEGATIVE (NEGATIVE); UROBILINOGEN,URINE 0.2 (NORMAL) E.U./dL (NORMAL)
[2018-04-22 00:59] LABS: CLARITY,URINE CLEAR (CLEAR)
--- NOTE | 2018-04-22 01:04 | CT Report ---
Reason: fall, head injury, BARNES Procedure Date: 04/22/2018 Accession Number: [id number] / [id number] Procedure: CT - Head W/O CPT Code: FULL RESULT: EXAM: CT HEAD EXAM DATE: 04/22/2018 12:31 AM. CLINICAL HISTORY: Fall, head injury, BARNES. COMPARISON: 11/23/2017. TECHNIQUE: Multiaxial CT images were obtained from the foramen magnum to the vertex. Reformats: Sagittal and coronal. IV contrast: None. In accordance with CT protocol optimization, one or more of the following dose reduction techniques were utilized for this exam: automated exposure control, adjustment of mA and/or KV based on patient size, or use of iterative reconstructive technique. FINDINGS: Right frontal convexity craniotomy as before. Stable appearance to white matter hypodensity, small focus of calcification and cortical injury subjacent to the craniotomy flap consistent with prior tumor resection. CSF spaces appear diffusely prominent given the patient's age. No space-occupying lesion, hemorrhage, extracerebral fluid collection, evidence of infarct or hydrocephalus. No skull fracture suspected. Frontal sinuses are partially inadvertently excluded from the imaging volume. IMPRESSION: Changes of prior right frontal tumor resection. No acute intracranial process identified. RADIA
[2018-04-22 01:40] LABS: EOSINOPHILS # (AUTO) 0.3 10^3/uL (0.0-0.7); EOSINOPHILS % (AUTO) 5.5 %; HGB - HEMOGLOBIN 11.4 g/dL (14.0-18.0); INR 1.3 (0.8-1.2); LYMPHOCYTES # (AUTO) 1.1 10^3/uL (1.5-3.5); LYMPHOCYTES % (AUTO) 23.6 %; MEAN CORPUSCULAR HEMOGLOBIN 32.9 pg (27.0-31.0); MEAN CORPUSCULAR HGB CONC 35.7 g/dL (32.0-36.0); MEAN CORPUSCULAR VOLUME 92.1 fL (80.0-94.0); MONOCYTES # (AUTO) 0.6 10^3/uL (0.0-1.0); MONOCYTES % (AUTO) 11.9 %; NEUTROPHILS # (AUTO) 2.8 10^3/uL (1.5-6.6); PLT - PLATELET COUNT 161 10^3/uL (130-450); PT - PROTHROMBIN TIME 14.5 secs (9.9-12.6); RED BLOOD COUNT 3.46 10^6/uL (4.70-6.10); RED CELL DISTRIBUTION WIDTH 15.3 % (12.0-15.0); WHITE BLOOD COUNT 4.8 x10^3/uL (4.8-10.8)
[2018-04-22 01:49] LABS: ALBUMIN 3.7 g/dL (3.2-5.5); ALBUMIN/GLOBULIN RATIO 1.1 (1.0-2.2); ALKALINE PHOSPHATASE 111 IU/L (42-121); ALT ALANINE AMINOTRANSFERASE < 10 IU/L (10-60); AST ASPARTATE AMINOTRANSFERASE 32 IU/L (10-42); BILIRUBIN,TOTAL 0.9 mg/dL (0.2-1.0); BUN - BLOOD UREA NITROGEN 6 mg/dL (6-20); CALCIUM 8.7 mg/dL (8.5-10.3); CARBON DIOXIDE - CO2 25 mmol/L (21-32); CHLORIDE 90 mmol/L (101-111); CREATININE 0.7 mg/dL (0.6-1.2); GFR - MDRD 117 (>89); GLUCOSE 87 mg/dL (70-100); LIPASE 24 U/L (22-51); SODIUM 125 mmol/L (135-145)
[2018-04-22 05:43] VITALS: BP 135/97
== END 2018-04-22 06:23 | disposition home or self-care (01) ==
LOC: EDUNIT# → ED 23:45
DX: R53.1 Weakness (principal); E87.1 Hypo-osmolality and hyponatremia; I11.0 Hypertensive heart disease with heart failure; I50.9 Heart failure, unspecified; I25.10 Atherosclerotic heart disease of native coronary artery without angina pectoris; I73.9 Peripheral vascular disease, unspecified; F17.200 Nicotine dependence, unspecified, uncomplicated
CPT/HCPCS: 36415; 36556; 70450; 80053; 81001; 81003; 83605; 83690; 83880; 84443; 85025; 85610; 85730; 87086; 96374; 99283

== ENCOUNTER 2018-04-25 22:49 | Outpatient (CLI) | payer MEDICAID | END 2018-04-25 22:50 | disposition critical access hospital (66) | LOC: EMS 22:49 | PROVIDERS: ATTEND Surgery | DX: R53.1 Weakness (principal); R41.0 Disorientation, unspecified | CPT/HCPCS: A0425; A0427; A0999 ==

== ENCOUNTER 2018-04-25 23:14 | Inpatient (IN) | payer MEDICAID ==
[2018-04-25] MEDS ORDERED: SODIUM CHLORIDE 0.9% 1,000 ML IV ONE (23:26)
[2018-04-25 23:47] LABS: BASOPHILS # (AUTO) 0.1 10^3/uL (0.0-0.1); BASOPHILS % (AUTO) 1.1 %; EOSINOPHILS # (AUTO) 0.2 10^3/uL (0.0-0.7); EOSINOPHILS % (AUTO) 5.5 %; HGB - HEMOGLOBIN 10.7 g/dL (14.0-18.0); LYMPHOCYTES # (AUTO) 0.8 10^3/uL (1.5-3.5); LYMPHOCYTES % (AUTO) 18.7 %; MEAN CORPUSCULAR HEMOGLOBIN 33.3 pg (27.0-31.0); MEAN CORPUSCULAR HGB CONC 36.2 g/dL (32.0-36.0); MEAN CORPUSCULAR VOLUME 92.2 fL (80.0-94.0); MEAN PLATELET VOLUME 7.1 fL (7.4-11.4); MONOCYTES # (AUTO) 0.7 10^3/uL (0.0-1.0); NEUTROPHILS # (AUTO) 2.6 10^3/uL (1.5-6.6); NEUTROPHILS % (AUTO) 58.7 %; PLT - PLATELET COUNT 138 10^3/uL (130-450); RED CELL DISTRIBUTION WIDTH 14.6 % (12.0-15.0); WHITE BLOOD COUNT 4.5 x10^3/uL (4.8-10.8)
[2018-04-26 00:19] LABS: ALBUMIN 3.6 g/dL (3.2-5.5); ALBUMIN/GLOBULIN RATIO 1.2 (1.0-2.2); ALKALINE PHOSPHATASE 95 IU/L (42-121); ALT ALANINE AMINOTRANSFERASE < 10 IU/L (10-60); AST ASPARTATE AMINOTRANSFERASE 31 IU/L (10-42); BUN - BLOOD UREA NITROGEN 7 mg/dL (6-20); CALCIUM 8.6 mg/dL (8.5-10.3); CARBON DIOXIDE - CO2 23 mmol/L (21-32); CHLORIDE 88 mmol/L (101-111); CREATININE 0.7 mg/dL (0.6-1.2); GFR - MDRD 117 (>89); GLUCOSE 90 mg/dL (70-100); LIPASE 32 U/L (22-51); TOTAL PROTEIN 6.7 g/dL (6.7-8.2)
[2018-04-26 01:05] LABS: BILIRUBIN,URINE NEGATIVE (NEGATIVE); GLUCOSE, URINE (UA) NEGATIVE (NEGATIVE); KETONES,URINE (UA) NEGATIVE (NEGATIVE); LEUKOCYTE ESTERASE, URINE NEGATIVE (NEGATIVE); NITRITE,URINE NEGATIVE (NEGATIVE); OCCULT BLOOD,URINE NEGATIVE (NEGATIVE); PH,URINE 6.5 PH (5.0-7.5); PROTEIN,URINE NEGATIVE (NEGATIVE); UROBILINOGEN,URINE 0.2 (NORMAL) E.U./dL (NORMAL)
[2018-04-26 01:09] LABS: CLARITY,URINE CLEAR (CLEAR)
--- NOTE | 2018-04-26 01:23 | ED Physician Documentation ---
History of Present Illness - Stated complaint Stated Complaint: PAIN/WEAKNESS - Chief complaint Chief Complaint: General - History obtained from History obtained from: Patient, EMS (1) - History of Present Illness Timing: How many weeks ago (1) - Additonal information Additional information: 58 y/o male with a history of metastatic adenocarcinoma of the lung has become progressively weak and today he has called the ambulance for failure at home. He has pain in his shoulders chronically and is on pain management for this. He has been in to see Kari Yanez and he is on palliative care services and he is getting PD1 inhibitor with no progression of disease at last check earlier this month. Review of Systems Constitutional: reports: Fatigue. denies: Fever Eyes: denies: Decreased vision Ears: denies: Ear pain Nose: denies: Rhinorrhea / runny nose, Congestion Throat: denies: Sore throat Cardiac: denies: Chest pain / pressure, Palpitations Respiratory: reports: Dyspnea, Cough GI: denies: Abdominal Pain, Nausea, Vomiting : denies: Dysuria, Frequency Musculoskeletal: reports: Extremity pain, Extremity swelling Neurologic: reports: Generalized weakness. denies: Focal weakness, Numbness PD PAST MEDICAL HISTORY - Past Medical History Cardiovascular: Congestive heart failure, Hypertension, Coronary artery disease, Peripheral Vascular Disease Respiratory: COPD, Shortness of breath, Other Neuro: Seizure disorder, Other Endocrine/Autoimmune: None GI: GERD, Chronic constipation, Diverticulitis : Benign prostate hypertrophy, Incontinence, Nocturia, Frequency HEENT: Chronic vision loss Psych: Anxiety Musculoskeletal: Chronic back pain, Other Derm: None - Past Surgical History Past Surgical History: Yes Ortho: Amputation Cardiovascular: Cardiac catheterization Neuro: Craniotomy - Present Medications Home Medications: Ambulatory Orders Medication Instructions Recorded Confirmed Albuterol [Ventolin Hfa] 2 puffs INH Q4H PRN 11/11/14 03/27/18 Lorazepam [Ativan] 1 mg PO Q8HR PRN 09/23/15 03/27/18 Tamsulosin [Flomax] 0.4 mg PO DAILY 06/29/16 03/27/18 Esomeprazole Magnesium [Nexium 20 mg PO DAILY 08/10/16 03/27/18 24Hr] Oxycodone HCl [Oxycontin] 20 mg PO TID 07/04/17 03/27/18 Oxycodone HCl 10 - 20 mg PO Q4HR PRN MDD 8 tabs 07/26/17 03/27/18 Vitamin B Complex 1 tab PO DAILY 07/26/17 03/27/18 Sennosides [Senna Lax] 2 - 4 tab PO BID PRN 08/10/17 03/27/18 Lidocaine Ointment 5% [Xylocaine 1 appful TOP PRN PRN 08/20/17 03/27/18 Ointment 5%] Melatonin 5 mg PO DAILY PM 08/29/17 03/27/18 Magnesium Oxide [Magnesium] 400 mg PO DAILY 08/30/17 03/27/18 Potassium Chloride [K-Dur] 40 meq PO BID MDD extra with 08/30/17 03/27/18 diuretic Gabapentin [Neurontin] 1,600 mg PO BID 09/27/17 03/27/18 Levetiracetam [Keppra] 500 mg PO BID #30 tablet 11/23/17 03/27/18 Loperamide [Imodium] 2 mg PO Q4HR PRN 12/20/17 03/27/18 Polyethylene Glycol 3350 [Miralax] 17 gm PO DAILY PRN 02/13/18 03/27/18 Ondansetron Odt [Zofran] 4 mg TL Q6H PRN #15 tablet 03/19/18 03/27/18 Montelukast Sodium 10 mg PO 04/25/18 - Allergies Allergies/Adverse Reactions: Allergies Allergy/AdvReac Type Severity Reaction Status Date / Time BRONWYN Inhibitors Allergy Emesis Verified 04/15/18 23:38 amoxicillin [From Augmentin] Allergy Emesis Verified 04/15/18 23:38 clavulanic acid Allergy Emesis Verified 04/15/18 23:38 [From Augmentin] lisinopril Allergy "THROAT Verified 04/15/18 23:38 SWELLING" - Social History Does the pt smoke?: Yes Smoking Status: Current every day smoker Does the pt drink ETOH?: Yes Does the pt have substance abuse?: No - Immunizations Immunizations are current?: Yes - POLST Patient has POLST: No POLST Status: Full Code PD ED PE NORMAL - Vitals Vital signs reviewed: Yes (hypoxic ) - General General: Well developed/nourished, Other (The patient prefers to lay with his eyes closed and is less interactive. He does answer and he has some delay in execution of motor commands. ) - HEENT HEENT: Atraumatic, PERRL, EOMI - Neck Neck: Supple, no meningeal sign - Cardiac Cardiac: RRR, No murmur - Respiratory Respiratory: No respiratory distress, Clear bilaterally - Abdomen Abdomen: Soft, Non tender - Back Back: No CVA TTP, No spinal TTP - Derm Derm: Normal color, Warm and dry, No rash - Extremities Extremities: Other (There is pitting edema to both LE and they are wrapped ) - Neuro Neuro: car icer 2-12 intact, No motor deficit, No sensory deficit Eye Opening: Spontaneous Motor: Obeys Commands Verbal: Oriented GCS Score: 15 - Psych Psych: Other (mood is withdrawn and the affect is blunted. ) Results - Vitals Vitals: Vital Signs - 24 hr 04/25/18 04/26/18 23:16 00:36 Temperature 36.8 C Heart Rate 92 87 Respiratory 16 16 Rate Blood Pressure 116/74 114/74 O2 Saturation 91 L 94 Oxygen O2 Source Nasal cannula Oxygen Flow Rate 2 - Labs Labs: Laboratory Tests 04/25/18 04/25/18 04/25/18 23:35 23:35 23:35 Sodium 118 L* Potassium 4.9 Chloride 88 L Carbon Dioxide 23 Anion Gap 7.0 BUN 7 Creatinine 0.7 Estimated GFR (MDRD) 117 Glucose 90 Lactic Acid 0.8 Calcium 8.6 Total Bilirubin 1.0 AST 31 ALT < 10 L Alkaline Phosphatase 95 Troponin I < 0.04 Total Protein 6.7 Albumin 3.6 Globulin 3.1 Albumin/Globulin Ratio 1.2 Lipase 32 Urine Color Urine Clarity Urine pH Ur Specific [place] Urine Protein Urine Glucose (UA) Urine Ketones Urine Occult Blood Urine Nitrite Urine Bilirubin Urine Urobilinogen Ur Leukocyte Esterase Ur Microscopic Review Urine Culture Comments 04/26/18 00:46 Sodium Potassium Chloride Carbon Dioxide Anion Gap BUN Creatinine Estimated GFR (MDRD) Glucose Lactic Acid Calcium Total Bilirubin AST ALT Alkaline Phosphatase Troponin I Total Protein Albumin Globulin Albumin/Globulin Ratio Lipase Urine Color YELLOW Urine Clarity CLEAR Urine pH 6.5 Ur Specific [place] <=1.005 Urine Protein NEGATIVE Urine Glucose (UA) NEGATIVE Urine Ketones NEGATIVE Urine Occult Blood NEGATIVE Urine Nitrite NEGATIVE Urine Bilirubin NEGATIVE Urine Urobilinogen 0.2 (NORMAL) Ur Leukocyte Esterase NEGATIVE Ur Microscopic Review NOT INDICATED Urine Culture Comments NOT INDICATED Procedures - IVC sono (time) 5587 Bedside IVC sono: IVC measures (cm) (1.38), IVC collapsed c insp (cm) (complete), Dehydration (mild est <1 liter) PD MEDICAL DECISION MAKING - ED course Complexity details: reviewed old records, reviewed results, re-evaluated patient, considered differential, d/w patient ED course: 58 y/o male with lung cancer now has significant hyponatremia and weakness. Departure - Departure Disposition: 66 [facility] DC/Xfer Clinical Impression: Generalized weakness, Hyponatremia Condition: Serious
[2018-04-26] MEDS ORDERED: LIDOCAINE OINTMENT 5% 35.44 GM TUBE TOP PRN (01:49)
[2018-04-26] MEDS ORDERED: LORazepam 1 MG TABLET PO PRN (01:49)
[2018-04-26] MEDS ORDERED: ACETAMINOPHEN 325 MG TABLET PO PRN (01:54)
[2018-04-26] MEDS ORDERED: ONDANSETRON 4 MG/2 ML VIAL IVP PRN (01:54)
[2018-04-26] MEDS ORDERED: MORPHINE 2 MG/ML CARPUJECT IVP PRN (01:54)
[2018-04-26] MEDS ORDERED: oxyCODONE 5 MG TABLET PO PRN (01:54)
[2018-04-26] MEDS ORDERED: PROMETHAZINE 25 MG/1 ML VIAL IM PRN (01:54)
[2018-04-26] MEDS ORDERED: IPRATROPIUM/ALBUTEROL 3 ML NEB INH PRN (01:54)
[2018-04-26] MEDS ORDERED: PROCHLORPERAZINE 10 MG/2 ML VIAL IVP PRN (01:54)
[2018-04-26] MEDS ORDERED: SODIUM CHLORIDE FLUSH 0.9% 10 ML SYRINGE IVP PRN (01:54)
[2018-04-26] MEDS ORDERED: SODIUM CHLORIDE 0.9% 1,000 ML IV ONE (01:54)
[2018-04-26] MEDS ORDERED: SODIUM CHLORIDE 0.9% 1,000 ML IV SCH (02:00)
--- NOTE | 2018-04-26 02:03 | HISTORY & PHYSICAL EXAMINATION ---
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 The patient states that his symptoms have been ongoing for 3 weeks and have become progressively worse. He states that he has been having generalized weakness with falls at home, shakiness and nausea. He states that he has been feeling weaker and weaker to the point where today he states he could barely stand up out of his chair on his own. He states that he is continued to have nausea and vomits twice a day. He also states that he has been having diarrhea for the last several weeks. He states that he has a chronic cough and chronic shortness of breath which are getting worse. He also states that he has chronic chest pain that is getting worse. He also states that his pain in his neck, back, feet and shoulders has been getting worse as he has had several falls. The patient also states that he has been confused more than normal. When asked he cannot really specify what he has been confused about. He states that normal stuff that he would know he is been confused on. The patient has been in the emergency room 3 times in the last month with similar complaints. He was last admitted in July 2017 after a syncopal episode. On previous visits to the emergency department the patient has been found to have hyponatremia but not severe enough to require admission. The patient is followed at home by palliative care. The patient denies any headache, blurred vision, runny nose, sore throat, nasal congestion, orthopnea, PND, abdominal pain, urinary urgency, urinary frequency, dysuria, recent unintentional weight loss, change in his appetite, skin rash, skin changes, dizziness, polyuria, polydipsia, night sweats or any focal neurologic deficits. On presentation to the emergency department the patient is afebrile and slightly hypoxic with a oxygen saturation of 91% on room air. The patient's vital signs are otherwise stable. Patient underwent routine blood work given his generalized weakness which did reveal a mild leukopenia, anemia and severe hyponatremia. The patient's sodium was found to be 118 with a chloride of 88. The remainder of the patient's lab work was within normal limits. The patient had a negative urine analysis. Given the patient's severe hyponatremia with generalized weakness and confusion the patient was admitted to the [facility] for treatment of severe hyponatremia. History - Past Medical History Cardiovascular: reports: Hypertension, Coronary artery disease, Peripheral Vascular Disease Respiratory: reports: COPD, Shortness of breath, Other Neuro: reports: Seizure disorder, Other Endocrine/Autoimmune: reports: None GI: reports: GERD, Chronic constipation, Diverticulitis : reports: Benign prostate hypertrophy, Incontinence, Nocturia, Frequency HEENT: reports: Chronic vision loss Psych: reports: Anxiety Musculoskeletal: reports: Chronic back pain, Other Derm: reports: None MRSA Hx?: Yes Other Past Medical History: Metastatic adenocarcinoma of the lung with metastasis to the brain - Past Surgical History Ortho: reports: Amputation Cardiovascular: reports: Cardiac catheterization Neuro: reports: Craniotomy - Family & Social History Family History: Mother: , Cancer, Diabetes, Type 2, Father: , Cancer, Sister: Alive and Well, Cancer, Other family: Alive and Well Living arrangement: At home Living Situation: With friend(s) Social History Notes: The patient lives in [place], [place] with a roommate whom he has recently met. The patient was born in [place] at [facility]. His father was in the but the patient himself was not in the . The patient has 3 children and is . He has a sister who lives on [facility]. The patient continues to smoke almost 1 pack/day and has been d oing so for about 40 years. He also drinks 324 ounce beers and 3 shots of vodka daily. He denies any illicit drug use. - Substance History Use: Uses substance without health or social issues: Tobacco, Alcohol - POLST Patient has POLST: No POLST Status: Full Code Meds/Allgy - Home Medications Home Medications: Ambulatory Orders Medication Instructions Recorded Confirmed Albuterol [Ventolin Hfa] 2 puffs INH Q4H PRN 11/11/14 03/27/18 Lorazepam [Ativan] 1 mg PO Q8HR PRN 09/23/15 03/27/18 Tamsulosin [Flomax] 0.4 mg PO DAILY 06/29/16 03/27/18 Esomeprazole Magnesium [Nexium 20 mg PO DAILY 08/10/16 03/27/18 24Hr] Oxycodone HCl [Oxycontin] 20 mg PO TID 07/04/17 03/27/18 Oxycodone HCl 10 - 20 mg PO Q4HR PRN MDD 8 tabs 07/26/17 03/27/18 Vitamin B Complex 1 tab PO DAILY 07/26/17 03/27/18 Sennosides [Senna Lax] 2 - 4 tab PO BID PRN 08/10/17 03/27/18 Lidocaine Ointment 5% [Xylocaine 1 appful TOP PRN PRN 08/20/17 03/27/18 Ointment 5%] Melatonin 5 mg PO DAILY PM 08/29/17 03/27/18 Magnesium Oxide [Magnesium] 400 mg PO DAILY 08/30/17 03/27/18 Potassium Chloride [K-Dur] 40 meq PO BID MDD extra with 08/30/17 03/27/18 diuretic Gabapentin [Neurontin] 1,600 mg PO BID 09/27/17 03/27/18 Levetiracetam [Keppra] 500 mg PO BID #30 tablet 11/23/17 03/27/18 Loperamide [Imodium] 2 mg PO Q4HR PRN 12/20/17 03/27/18 Polyethylene Glycol 3350 [Miralax] 17 gm PO DAILY PRN 02/13/18 03/27/18 Ondansetron Odt [Zofran] 4 mg TL Q6H PRN #15 tablet 03/19/18 03/27/18 Montelukast Sodium 10 mg PO 04/25/18 - Allergies Allergies/Adverse Reactions: Allergies Allergy/AdvReac Type Severity Reaction Status Date / Time BRONWYN Inhibitors Allergy Emesis Verified 04/15/18 23:38 amoxicillin [From Augmentin] Allergy Emesis Verified 04/15/18 23:38 clavulanic acid Allergy Emesis Verified 04/15/18 23:38 [From Augmentin] lisinopril Allergy "THROAT Verified 04/15/18 23:38 SWELLING" Review of Systems - Other Findings Other Findings: A comprehensive review of systems was performed the pertinent positives and negatives are stated above in the HPI and the remainder of the review of systems is negative. Prior Level of Functionality: Patient lives independently and is still able to perform all his activities of daily living. Exam - Vital Signs Reviewed Vital Signs: Yes Vital Signs: Vital Signs x48h Temp Pulse Resp BP Pulse Ox 04/26/18 00:36 87 16 114/74 94 04/25/18 23:16 36.8 C 92 16 116/74 91 L - Physical Exam General Appearance: positive: No acute distress, Alert, Other (Disheveled appearance, smells of tobacco looks older than stated age.) Eyes Bilateral: positive: Normal inspection, PERRL, EOMI, No lid inflammation, Conjunctivae nml, No scleral icterus ENT: positive: ENT inspection nml, Pharynx nml, Dry mucous membranes. negative: Purulent nasal drainage, Pharyngeal erythema, Oral lesions Neck: positive: Nml inspection, Thyroid nml, No JVD, Trachea midline. negative: Thyromegaly, Lymphadenopathy (R), Lymphadenopathy (L), Stiff neck, Carotid bruit, Tracheal deviation Respiratory: positive: Chest non-tender, No respiratory distress, Wheezes (Scattered at the bases), Other (Decreased lung sounds throughout) Cardiovascular: positive: Regular rate & rhythm, No murmur, No gallop Peripheral Pulses: positive: 2+ Abdomen: positive: Non-tender, No organomegaly, Nml bowel sounds, No distention. negative: Guarding, Rebound, Hepatomegaly Back: positive: Nml inspection. negative: CVA tenderness (R), CVA tenderness (L) Skin: positive: Color nml, No rash, Warm, Dry, Other (Patient has bilateral lower extremity stasis dermatitis.). negative: Cyanosis, Diaphoresis, Pallor Extremities: positive: Non-tender, Full ROM, Nml appearance, Pedal edema (Patient has bilateral lower extremity edema which appears to be chronic.), Other (Patient has amputations of his second third and fourth toes on his left foot.) Neurologic/Psychiatric: positive: Oriented x3, CN's nml (2-12), Motor nml, Sensation nml, Mood/affect nml, Sensory loss (Bilateral lower extremities) Conclusion/Plan - Problem List (1) Hyponatremia Conclusion/Plan: The patient presents to the emergency department with 3 weeks of generalized weakness, nausea, vomiting and states he has been having confusion. The patient has presented with similar complaints 2 times in the last 2 weeks. During previous visits to the emergency department the patient was found to be hyponatremic with sodium ranging from 123-125. The patient did not require hospitalization but was given fluids and seemed to improve. Today however the patient presents with a sodium of 118 and is having difficulty just sitting up from the bed. Given his severe hyponatremia he is being hospitalized for treatment of hyponatremia. The patient does appear to have hypovolemic hyponatremia although given his history of lung cancer he may also have SIADH. At this point we will treat him with IV fluids and if he is not improving then we will need to consider fluid restriction. Plan: Give 1 L IV fluid bolus and then start patient on normal saline at 250 mL's per hour Monitor sodium every 6 hours Goal to increase sodium by no more than 8 mEq/L/day If sodium is increasing at a faster rate we will need to decrease the fluid Check urine sodium, urine creatinine and urine and serum osmolality Check TSH and cortisol level (2) Tobacco abuse Conclusion/Plan: Despite having metastatic lung cancer, COPD and peripheral vascular disease patient continues to smoke almost a pack a day. Patient was counseled on the need to quit smoking. Patient will be given a nicotine patch while he is hospitalized. (3) Metastatic adenocarcinoma to lung Conclusion/Plan: The patient has metastatic adenocarcinoma of the lung with metastasis to his brain. The patient has undergone brain radiation and is currently undergoing chemotherapy. Patient's last chemotherapy treatment was about a month ago. The patient does not seem to know when his next [facility] clinic appointment is. Patient does not appear to be the most compliant as he continues to smoke and drink. Plan: Check chest x-ray Patient will be continued on his antiepileptic medication for his history of brain metastases Patient will need to follow-up with oncology once he is discharged. Qualifiers: Laterality: right Qualified Code(s): C78.01 - Secondary malignant neoplasm of right lung (4) Chronic pain Conclusion/Plan: The patient has chronic pain which she describes as in his feet, knees, shoulders, neck and back. The patient is on chronic opioids for pain control with oxycodone and OxyContin at home. Plan: We will confirm the patient's home doses of oxycodone and OxyContin and continue him on them while he is hospitalized. Qualifiers: Chronic pain type: other chronic pain Qualified Code(s): G89.29 - Other chronic pain (5) COPD (chronic obstructive pulmonary disease) with acute bronchitis Conclusion/Plan: The patient has a history of COPD secondary to smoking. The patient continues to smoke cigarettes. The patient was advised to quit. The patient does not appear to be in exacerbation today. Patient will be given duo nebs as needed and oxygen as needed. Patient will also be continued on montelukast (6) Peripheral neuropathy Conclusion/Plan: The patient has a history of peripheral neuropathy and uses gabapentin at home. The patient will be continued on gabapentin while he is hospitalized. Qualifiers: Peripheral neuropathy type: polyneuropathy, other Qualified Code(s): G62.89 - Other specified polyneuropathies (7) BPH (benign prostatic hyperplasia) Conclusion/Plan: The patient has a history of BPH and uses Flomax at home. The patient will be continued on his home dose of Flomax while he is hospitalized. (8) Alcohol abuse Conclusion/Plan: Patient is a history of alcohol abuse and continues to drink daily. The patient has not had any history of alcohol withdrawal seizures or alcohol withdrawal. While the patient is hospitalized he will be placed on Ativan as needed. We will continue to monitor if patient starts to show signs of withdrawal he will be placed on CIWA protocol. Patient was counseled on the need to quit drinking. (9) Anemia Conclusion/Plan: Patient is followed by hematology and his anemia is believed to be related to his alcohol abuse. The patient's hemoglobin is stable and he is not showing any active signs of bleeding. We will continue to monitor the hemoglobin daily. It appears stable at this time. Qualifiers: Anemia type: unspecified type Qualified Code(s): D64.9 - Anemia, unspecified - Lab Results Lab results reviewed: Yes Fish Bones: 04/25/18 23:35 04/25/18 23:35 Other Lab Results: Laboratory Results WBC 4.5 x10^3/uL (4.8-10.8) L 04/25/18 23:35 RBC 3.20 10^6/uL (4.70-6.10) L 04/25/18 23:35 Hgb 10.7 g/dL (14.0-18.0) L 04/25/18 23:35 Hct 29.5 % (42.0-52.0) L 04/25/18 23:35 MCV 92.2 fL (80.0-94.0) 04/25/18 23:35 MCH 33.3 pg (27.0-31.0) H 04/25/18 23:35 MCHC 36.2 g/dL (32.0-36.0) H 04/25/18 23:35 RDW 14.6 % (12.0-15.0) 04/25/18 23:35 Plt Count 138 10^3/uL (130-450) 04/25/18 23:35 MPV 7.1 fL (7.4-11.4) L 04/25/18 23:35 Neut # (Auto) 2.6 10^3/uL (1.5-6.6) 04/25/18 23:35 Lymph # (Auto) 0.8 10^3/uL (1.5-3.5) L 04/25/18 23:35 [place] # (Auto) 0.7 10^3/uL (0.0-1.0) 04/25/18 23:35 Eos # (Auto) 0.2 10^3/uL (0.0-0.7) 04/25/18 23:35 Baso # (Auto) 0.1 10^3/uL (0.0-0.1) 04/25/18 23:35 Absolute Nucleated RBC 0.00 x10^3/uL 04/25/18 23:35 Nucleated RBC % 0.0 /100WBC 04/25/18 23:35 Sodium 118 mmol/L (135-145) L* 04/25/18 23:35 Potassium 4.9 mmol/L (3.5-5.0) 04/25/18 23:35 Chloride 88 mmol/L (101-111) L 04/25/18 23:35 Carbon Dioxide 23 mmol/L (21-32) 04/25/18 23:35 Anion Gap 7.0 (6-13) 04/25/18 23:35 BUN 7 mg/dL (6-20) 04/25/18 23:35 Creatinine 0.7 mg/dL (0.6-1.2) 04/25/18 23:35 Estimated GFR (MDRD) 117 (>89) 04/25/18 23:35 Glucose 90 mg/dL (70-100) 04/25/18 23:35 Lactic Acid 0.8 mmol/L (0.5-2.2) 04/25/18 23:35 Calcium 8.6 mg/dL (8.5-10.3) 04/25/18 23:35 Total Bilirubin 1.0 mg/dL (0.2-1.0) 04/25/18 23:35 AST 31 IU/L (10-42) 04/25/18 23:35 ALT < 10 IU/L (10-60) L 04/25/18 23:35 Alkaline Phosphatase 95 IU/L (42-121) 04/25/18 23:35 Troponin I < 0.04 ng/mL (<0.49) 04/25/18 23:35 Total Protein 6.7 g/dL (6.7-8.2) 04/25/18 23:35 Albumin 3.6 g/dL (3.2-5.5) 04/25/18 23:35 Globulin 3.1 g/dL (2.1-4.2) 04/25/18 23:35 Albumin/Globulin Ratio 1.2 (1.0-2.2) 04/25/18 23:35 Lipase 32 U/L (22-51) 04/25/18 23:35 Urine Color YELLOW 04/26/18 00:46 Urine Clarity CLEAR (CLEAR) 04/26/18 00:46 Urine pH 6.5 PH (5.0-7.5) 04/26/18 00:46 Ur Specific [employer] <=1.005 (1.002-1.030) 04/26/18 00:46 Urine Protein NEGATIVE mg/dL (NEGATIVE) 04/26/18 00:46 Urine Glucose (UA) NEGATIVE mg/dL (NEGATIVE) 04/26/18 00:46 Urine Ketones NEGATIVE mg/dL (NEGATIVE) 04/26/18 00:46 Urine Occult Blood NEGATIVE (NEGATIVE) 04/26/18 00:46 Urine Nitrite NEGATIVE (NEGATIVE) 04/26/18 00:46 Urine Bilirubin NEGATIVE (NEGATIVE) 04/26/18 00:46 Urine Urobilinogen 0.2 (NORMAL) E.U./dL (NORMAL) 04/26/18 00:46 Ur Leukocyte Esterase NEGATIVE (NEGATIVE) 04/26/18 00:46 Ur Microscopic Review NOT INDICATED 04/26/18 00:46 Urine Culture Comments NOT INDICATED 04/26/18 00:46 Core Measures - Anticipated LOS I expect patient to be DC'd or transferred within 96 hours.: Yes - DVT/VTE - Prophylaxis VTE/DVT Prophylaxis med ordered at admit?: Yes
[2018-04-26] MEDS ORDERED: NICOTINE 14 MG PATCH TOP STA (02:09)
--- NOTE | 2018-04-26 03:58 | XRAY Report ---
Reason: History of COPD and lung ca presenting w weakness Procedure Date: 04/26/2018 Accession Number: [id number] / [id number] Procedure: XR - Chest 1 View X-Ray CPT Code: 09517 FULL RESULT: EXAM: CHEST RADIOGRAPHY EXAM DATE: 04/26/2018 02:52 AM. CLINICAL HISTORY: History of COPD and lung cancer presenting with confusion and weakness. COMPARISON: 04/16/2018. TECHNIQUE: 1 view. FINDINGS: Lungs/Pleura: Small to moderate right pleural effusion is similar compared with the prior exam. Asymmetric interstitial and airspace opacities, left greater than right, also similar. No left pleural effusion is seen. No pneumothorax is identified. Mediastinum: Within exam limitations, heart size is upper normal. Other: Left-sided Port-A-Cath is unchanged. The tip is in the upper SVC. IMPRESSION: 1. Small to moderate right pleural effusion and asymmetric pulmonary opacities, right greater than left, which are similar compared with the prior exam. RADIA
[2018-04-26] MEDS: oxyCODONE 5 MG TABLET PO PRN ×2 (04:26→09:57)
[2018-04-26 05:22] LABS: CREATININE,URINE 13.5 mg/dL; POTASSIUM,URINE 35.3 mmol/L
[2018-04-26 05:53] LABS: SODIUM 118 mmol/L (135-145)
[2018-04-26] MEDS ORDERED: oxyCODONE ER 10 MG TABLET PO SCH (06:00)
[2018-04-26] MEDS: PANTOPRAZOLE 40 MG TABLET PO SCH (06:31)
[2018-04-26 07:52] LABS: INR 1.3 (0.8-1.2); PT - PROTHROMBIN TIME 14.7 secs (9.9-12.6)
[2018-04-26 08:01] LABS: CALCIUM 8.6 mg/dL (8.5-10.3); CREATININE 0.6 mg/dL (0.6-1.2); MAGNESIUM 1.7 mg/dL (1.7-2.8)
[2018-04-26] MEDS: SODIUM CHLORIDE 0.9% 1,000 ML IV SCH ×3 (09:12→17:56)
[2018-04-26] MEDS: ENOXAPARIN 40 MG/0.4 ML SYRINGE SUBQ SCH (09:14)
[2018-04-26] MEDS: levETIRAcetam 250 MG TABLET PO SCH ×2 (09:14→20:45)
[2018-04-26] MEDS: MAGNESIUM OXIDE 400 MG TABLET PO SCH (09:14)
[2018-04-26] MEDS: GABAPENTIN 400 MG CAPSULE PO SCH ×2 (09:14→20:44)
[2018-04-26] MEDS: TAMSULOSIN 0.4 MG CAPSULE PO SCH (09:15)
[2018-04-26] MEDS: predniSONE 20 MG TABLET PO SCH (09:15)
[2018-04-26] MEDS: NICOTINE 14 MG PATCH TOP SCH (09:15)
[2018-04-26] MEDS: SODIUM CHLORIDE FLUSH 0.9% 10 ML SYRINGE IVP SCH ×3 (09:15→23:40)
[2018-04-26] MEDS: POTASSIUM CHLORIDE 20 MEQ TABLET PO SCH ×2 (09:15→20:44)
[2018-04-26] MEDS: POLYETHYLENE GLYCOL 3350 17 GM PACKET PO SCH (09:15)
[2018-04-26 11:33] LABS: CALCIUM 8.4 mg/dL (8.5-10.3); CREATININE 0.7 mg/dL (0.6-1.2)
[2018-04-26 11:35] LABS: BASOPHILS % (AUTO) 1.2 %; EOSINOPHILS # (AUTO) 0.2 10^3/uL (0.0-0.7); EOSINOPHILS % (AUTO) 5.4 %; LYMPHOCYTES # (AUTO) 0.7 10^3/uL (1.5-3.5); LYMPHOCYTES % (AUTO) 17.7 %; MEAN CORPUSCULAR HEMOGLOBIN 33.1 pg (27.0-31.0); MEAN CORPUSCULAR HGB CONC 35.6 g/dL (32.0-36.0); MEAN CORPUSCULAR VOLUME 92.8 fL (80.0-94.0); MEAN PLATELET VOLUME 7.3 fL (7.4-11.4); MONOCYTES # (AUTO) 0.5 10^3/uL (0.0-1.0); NEUTROPHILS # (AUTO) 2.4 10^3/uL (1.5-6.6); NEUTROPHILS % (AUTO) 61.7 %; PLT - PLATELET COUNT 136 10^3/uL (130-450); RED BLOOD COUNT 3.33 10^6/uL (4.70-6.10); RED CELL DISTRIBUTION WIDTH 14.6 % (12.0-15.0); WHITE BLOOD COUNT 3.8 x10^3/uL (4.8-10.8)
--- NOTE | 2018-04-26 11:52 | CONSULTATION NOTE ---
Palliative Care Follow Up - Referral Referring Provider: Dr. Ragsdale Time of Visit: [id number] Referral setting: Hospitalized patient Referral Reason: Lung Cancer mets to brain s/p cyberknife; - Information Sources Records reviewed: RN notes reviewed History/Review of Systems obtained from: Patient Exam limitations: Clinical condition (patient with STM issues;) - History of Present Illness Update Brief HPI Update: This is a 58-year-old gentleman with adenocarcinoma originally diagnosed in 2013, has known brain metastases status post CyberKnife in [facility] 02/2017. He has been receiving pembrolizumab With his last treatment over a month ago. Patient had presented with several seizures right in a row, last seizure 10 days ago. For him to have an MRI of the brain, to evaluate if has recurrent disease, patient unable to lay flat because of his severe kyphosis in his neck, so arrangements were being made to have an open MRI. Unfortunately related to the fact he had surgery for his Port-A-Cath, he is not a candidate for MRI until 6 weeks out. His treatment was delayed in weighing benefits and burdens of going forward until had that information, the patient is continued to present multiple times with falls, increased confusion, intermittent diarrhea and nausea, and now presents to the hospital with hyponatremia of 118. Patient at baseline has multiple comorbidities, including CHF, lower extremity edema for which he takes torsemide often titrates himself. 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 Patient also has ongoing chronic pain, this is mostly attributed to his severe left lower extremity neuropathy, which worsens with treatment and joint pain with his Keytruda. He does have mild central chest pain, he has been on OxyContin 20 mg 3 times daily, oxycodone 20 mg up to 4 times a day, though often is noncompliant with this. He also has a severe underlying anxiety disorder, continues to smoke, and drinks at baseline 1-2 beers a day. He recently moved into his own apartment, has been trying to track his appointments, is feeling somewhat overwhelmed. He had hoped to have his cataracts, which is a huge quality of life issue, treated on Sunday but because of his kyphosis was unable to have surgery. He was unable to lay flat her back for them to be able to do the surgery. Patient gets very anxious when he comes to the hospital, worried they are not going to be giving him his right medications, as well as very worried he might , though he does understand he has lung cancer and getting palliative treatment. Social History - Living Situation Living arrangement: At home Living Situation: Other (roomate though does not participate in care) Support System: patient had VANDANA evaluation this week; unsure about where at in final hours/obt aining caregivers; patient trying to manage multiple appointments and care; does not have primary caregiver; son Alonso helps with transportation / groceries; has friend who helps some; paratransit has been set up; daughter Miya currently estranged; sister Mary calls frequently but is in [facility]; Medications/Allergies - Medications Active Medication List: Active Medications Acetaminophen (Tylenol) 650 mg PO Q4HR PRN PRN Reason: Pain 1 to 4 Albuterol/Ipratropium (Duoneb) 3 ml INH Q4HR PRN PRN Reason: Wheezing Enoxaparin Sodium (Lovenox) 40 mg SUBQ DAILY [facility] Last Admin: 04/26/18 09:14 Dose: Not Given Gabapentin (Neurontin) 1,600 mg PO BID [facility] Last Admin: 04/26/18 09:14 Dose: 1,600 mg Sodium Chloride (Normal Saline 0.9%) 1,000 mls @ 125 mls/hr IV .Q8H [facility] Last Admin: 04/26/18 09:12 Dose: 125 mls/hr Levetiracetam (Keppra) 500 mg PO BID [facility] Last Admin: 04/26/18 09:14 Dose: 500 mg Lorazepam (Ativan) 1 mg PO Q8HR PRN PRN Reason: Anxiety Last Admin: 04/26/18 09:57 Dose: 1 mg Magnesium Oxide (Mag Ox) 400 mg PO DAILY [facility] Last Admin: 04/26/18 09:14 Dose: 400 mg Morphine Sulfate (Morphine (Carpuject)) 2 mg IVP Q2HR PRN PRN Reason: Pain 8 to 10 Nicotine (Nicoderm) 1 patch TOP DAILY [facility] Last Admin: 04/26/18 09:15 Dose: 1 patch Ondansetron HCl (Zofran Inj) 4 mg IVP Q6HR PRN PRN Reason: Nausea / Vomiting Oxycodone HCl (Oxycontin) 20 mg PO QID [facility] Pantoprazole Sodium (Protonix) 40 mg PO QDAC [facility] Last Admin: 04/26/18 06:31 Dose: 40 mg Polyethylene Glycol (Miralax) 17 gm PO DAILY [facility] Last Admin: 04/26/18 09:15 Dose: 17 gm Potassium Chloride (K-Dur) 40 meq PO BID [facility] Last Admin: 04/26/18 09:15 Dose: 40 meq Prednisone (Deltasone) 20 mg PO DAILYWM [facility] Last Admin: 04/26/18 09:15 Dose: 20 mg Prochlorperazine Edisylate (Compazine Inj) 10 mg IVP Q6HR PRN PRN Reason: Nausea / Vomiting Promethazine HCl (Phenergan Inj) 25 mg IM Q6HR PRN PRN Reason: Nausea / Vomiting Sodium Chloride (Normal Saline Flush 0.9%) 10 ml IVP PRN PRN PRN Reason: NEEDED PER PROVIDER ORDERS Sodium Chloride (Normal Saline Flush 0.9%) 10 ml IVP 0100,0900,1700 [facility] Last Admin: 04/26/18 09:15 Dose: Not Given Tamsulosin HCl (Flomax) 0.4 mg PO DAILY [facility] Last Admin: 04/26/18 09:15 Dose: 0.4 mg Lorazepam [Ativan] 1 mg PO Q8HR PRN 16 Tamsulosin [Flomax] 0.4 mg PO DAILY 06/29/16 Esomeprazole Magnesium [Nexium 24Hr] 20 mg PO DAILY 08/10/16 Oxycodone HCl [Oxycontin] 20 mg PO TID 07/04/17 Oxycodone HCl 10 - 20 mg PO Q4HR PRN MDD 8 tabs 07/26/17 Vitamin B Complex 1 tab PO DAILY 07/26/17 Sennosides [Senna Lax] 17.2 mg PO TID 08/10/17 Lidocaine Ointment 5% [Xylocaine Ointment 5%] 1 appful TOP PRN PRN 08/20/17 Melatonin 3 mg PO DAILY PM 08/29/17 Magnesium Oxide [Magnesium] 400 mg PO DAILY 08/30/17 Potassium Chloride [K-Dur] 40 meq PO BID MDD extra with diuretic 08/30/17 Gabapentin [Neurontin] 800 mg PO TID 09/27/17 Loperamide [Imodium] 2 mg PO Q4HR PRN 12/20/17 Polyethylene Glycol 3350 [Miralax] 17 gm PO DAILY PRN 02/13/18 Torsemide 20 mg PO BID 04/26/18 Triamterene/Hydrochlorothiazid [Triamterene-Hctz 37.5-25 mg Tb] 1 tab PO DAILY 04/26/18 - Allergies Allergies/Adverse Reactions: Allergies Allergy/AdvReac Type Severity Reaction Status Date / Time BRONWYN Inhibitors Allergy Emesis Verified 04/15/18 23:38 amoxicillin [From Augmentin] Allergy Emesis Verified 04/15/18 23:38 clavulanic acid Allergy Emesis Verified 04/15/18 23:38 [From Augmentin] lisinopril Allergy "THROAT Verified 04/15/18 23:38 SWELLING" Review of Systems - Constitutional Constitutional: reports: Fatigue - Eyes Eyes: reports: Vision loss (went to [facility] for cataract surgery on ; unable to lay flat so not able to do; very disappointed as vision issues are signficant) - Ears, Nose & Throat Ears, Nose & Throat: reports: Hearing loss (mild), Nasal congestion, Dental decay - Cardiovascular Cardiovascular: reports: Edema (LE edema fluctuates; patient adjusts torsemide), Decr. exercise tolerance. denies: Chest pain - Respiratory Respiratory: reports: Cough (productive of yellow tinged sputum; no change), Orthopnea, SOB with exertion. denies: SOB at rest - Gastrointestinal Gastrointestinal: reports: Constipation, Diarrhea (alternates between constipation/diarrhea some incontinence), Nausea (intermittent; uses ondansetron a couple of times a day), Poor appetite, Early satiety - Genitourinary Genitourinary: reports: Frequency, Urgency - Musculoskeletal Musculoskeletal: reports: Muscle pain, Back pain, Muscle aches, Limited range of motion, Muscle weakness, Joint pain, Assistive devices - Integumentary Integumentary: reports: Dryness - Neurological Neurological: reports: Headache (new symptom over last couple of weeks; frontal; some relief with oxycodone;), Numbness (bilateral peripheral neuropathy; worsening over time; gabapentin 1600 mg BID;), Memory problems (flucutating difficulty to tell if medication use/ETOH/metabolic abnormalities;), Seizures (last seizure 10 days ago) - Psychiatric Psychiatric: reports: Depression, Anxiety, Aggitation (very irritable; gets anxious in hospital paranoid about getting wrong medications;) - All Other Systems All Other Systems: reports: Reviewed and negative Physical Exam - Vital Signs Vital Signs: Vital Signs x48h Temp Pulse Resp BP Pulse Ox 04/26/18 08:11 36.6 C 101 H 20 136/80 H 93 - Physical Exam General Appearance: positive: No acute distress, Alert, Anxious Eyes Bilateral: positive: Normal inspection Neck: positive: No JVD, Trachea midline Cardiovascular: positive: Regular rate & rhythm Respiratory: positive: Diminished throughout, Other (no BS RLL; dull to per cussion) Abdomen: positive: Soft, Nml bowel sounds Skin: positive: Pallor, Other Extremities: positive: Pedal edema, Other (Patient's left foot is hot to touch, no your erythema noted, patient does wrap his leg and ice and uses topical lidocaine to manage the significant pain on an ongoing basis. Patient has been treated multiple times for cellulitis in his left foot, has poor circulation, and has difficulty monitoring because of his vision) Neurologic/Psychiatric: positive: Oriented x3, Weakness, Depressed mood/affect, Flat affect Palliative Care - POLST Patient has POLST: No Pain: Pain worsening, Location (reports headache pain increasing over last couple of weeks; baseline back/lower extremity neuropathy and left chest pain unchanged;) Tiredness/Fatigue: Moderate (4-6) Drowsiness/Sedation: Moderate (4-6) Nausea: Moderate (4-6) Depression: Moderate (4-6) Anxiety: Severe (7-10) Dyspnea: Mild (1-3) Anorexia: Mild (1-3) Sleep: Sleeps poorly, Variable sleep pattern Constipation: Yes, Opoid induced, Intermittent constipation Feelings of wellbeing/Perceived Quality of Life: Poor, Worsening Performance Status: Patient had improved with his functional status short-term, but has continued to decline over the last several weeks. He did start physical therapy, his goal is to improve mobility and positioning of his head, though his neck x-rays are fairly extreme with the severe kyphosis. Patient is only able to ambulate short distances, he does use a walker, has difficulty getting from sit to stand. Patient would benefit from ongoing therapy during his stay here. - Palliative Care Discussion: Met with patient, remains quite irritable. Reviewed medications, particular a round pain meds, will follow up with hospitalist to release get to baseline. Patient reports he still wants to be a full code, remains quite anxious about dying or getting worse. Discussed with him again about Syeda HIGGINBOTHAM, reports he want his daughter Miya to do it but currently they are estranged. He does have 3 children actually total, but has not designated decision maker. Patient gets easily overwhelmed, he has many financial and social stressors, as well as multiple appointments and transportation issues. Results - Lab Results Lab results reviewed: Yes Fish Bones: 04/26/18 07:42 04/26/18 16:57 Lab and Imaging Results: Lab Results x24hrs 04/26/18 04/26/18 04/26/18 Range/Units 11:10 07:42 07:42 WBC (4.8-10.8) x10^3/uL RBC (4.70-6.10) 10^6/uL Hgb (14.0-18.0) g/dL Hct (42.0-52.0) % MCV (80.0-94.0) fL MCH (27.0-31.0) pg MCHC (32.0-36.0) g/dL RDW (12.0-15.0) % Plt Count (130-450) 10^3/uL MPV (7.4-11.4) fL Neut # (Auto) (1.5-6.6) 10^3/uL Lymph # (Auto) (1.5-3.5) 10^3/uL [place] # (Auto) (0.0-1.0) 10^3/uL Eos # (Auto) (0.0-0.7) 10^3/uL Baso # (Auto) (0.0-0.1) 10^3/uL Absolute Nucleated RBC x10^3/uL Nucleated RBC % /100WBC PT (9.9-12.6) secs INR (0.8-1.2) Sodium 126 L (135-145) mmol/L Potassium 4.4 (3.5-5.0) mmol/L Chloride 97 L (101-111) mmol/L Carbon Dioxide 23 (21-32) mmol/L Anion Gap 6.0 (6-13) BUN 7 (6-20) mg/dL Creatinine 0.7 (0.6-1.2) mg/dL Estimated GFR (MDRD) 117 (>89) Glucose 94 (70-100) mg/dL Lactic Acid (0.5-2.2) mmol/L Calcium 8.4 L (8.5-10.3) mg/dL Phosphorus (2.5-4.6) mg/dL Magnesium (1.7-2.8) mg/dL Total Bilirubin (0.2-1.0) mg/dL AST (10-42) IU/L ALT (10-60) IU/L Alkaline Phosphatase (42-121) IU/L Troponin I (<0.49) ng/mL Total Protein (6.7-8.2) g/dL Albumin (3.2-5.5) g/dL Globulin (2.1-4.2) g/dL Albumin/Globulin Ratio (1.0-2.2) Lipase (22-51) U/L TSH 5.58 (0.34-5.60) uIU/mL Cortisol AM Sample 1.4 ug/dL Urine Color Urine Clarity (CLEAR) Urine pH (5.0-7.5) PH Ur Specific [place] (1.002-1.030) Urine Protein (NEGATIVE) mg/dL Urine Glucose (UA) (NEGATIVE) mg/dL Urine Ketones (NEGATIVE) mg/dL Urine Occult Blood (NEGATIVE) Urine Nitrite (NEGATIVE) Urine Bilirubin (NEGATIVE) Urine Urobilinogen (NORMAL) E.U./dL Ur Leukocyte Esterase (NEGATIVE) Ur Microscopic Review Urine Culture Comments Urine Creatinine mg/dL Urine Sodium mmol/L Urine Potassium mmol/L 04/26/18 04/26/18 04/26/18 Range/Units 07:42 07:42 07:42 WBC (4.8-10.8) x10^3/uL RBC (4.70-6.10) 10^6/uL Hgb (14.0-18.0) g/dL Hct (42.0-52.0) % MCV (80.0-94.0) fL MCH (27.0-31.0) pg MCHC (32.0-36.0) g/dL RDW (12.0-15.0) % Plt Count (130-450) 10^3/uL MPV (7.4-11.4) fL Neut # (Auto) (1.5-6.6) 10^3/uL Lymph # (Auto) (1.5-3.5) 10^3/uL [place] # (Auto) (0.0-1.0) 10^3/uL Eos # (Auto) (0.0-0.7) 10^3/uL Baso # (Auto) (0.0-0.1) 10^3/uL Absolute Nucleated RBC x10^3/uL Nucleated RBC % /100WBC PT 14.7 H (9.9-12.6) secs INR 1.3 H (0.8-1.2) Sodium 126 L (135-145) mmol/L Potassium 4.4 (3.5-5.0) mmol/L Chloride 97 L (101-111) mmol/L Carbon Dioxide 22 (21-32) mmol/L Anion Gap 7.0 (6-13) BUN 7 (6-20) mg/dL Creatinine 0.6 (0.6-1.2) mg/dL Estimated GFR (MDRD) 139 (>89) Glucose 90 (70-100) mg/dL Lactic Acid 0.6 (0.5-2.2) mmol/L Calcium 8.6 (8.5-10.3) mg/dL Phosphorus 4.0 (2.5-4.6) mg/dL Magnesium 1.7 (1.7-2.8) mg/dL Total Bilirubin (0.2-1.0) mg/dL AST (10-42) IU/L ALT (10-60) IU/L Alkaline Phosphatase (42-121) IU/L Troponin I (<0.49) ng/mL Total Protein (6.7-8.2) g/dL Albumin (3.2-5.5) g/dL Globulin (2.1-4.2) g/dL Albumin/Globulin Ratio (1.0-2.2) Lipase (22-51) U/L TSH (0.34-5.60) uIU/mL Cortisol AM Sample ug/dL Urine Color Urine Clarity (CLEAR) Urine pH (5.0-7.5) PH Ur Specific [place] (1.002-1.030) Urine Protein (NEGATIVE) mg/dL Urine Glucose (UA) (NEGATIVE) mg/dL Urine Ketones (NEGATIVE) mg/dL Urine Occult Blood (NEGATIVE) Urine Nitrite (NEGATIVE) Urine Bilirubin (NEGATIVE) Urine Urobilinogen (NORMAL) E.U./dL Ur Leukocyte Esterase (NEGATIVE) Ur Microscopic Review Urine Culture Comments Urine Creatinine mg/dL Urine Sodium mmol/L Urine Potassium mmol/L 04/26/18 04/26/18 04/26/18 Range/Units 07:42 02:48 00:46 WBC 3.8 L (4.8-10.8) x10^3/uL RBC 3.33 L (4.70-6.10) 10^6/uL Hgb 11.0 L (14.0-18.0) g/dL Hct 30.9 L (42.0-52.0) % MCV 92.8 (80.0-94.0) fL MCH 33.1 H (27.0-31.0) pg MCHC 35.6 (32.0-36.0) g/dL RDW 14.6 (12.0-15.0) % Plt Count 136 (130-450) 10^3/uL MPV 7.3 L (7.4-11.4) fL Neut # (Auto) 2.4 (1.5-6.6) 10^3/uL Lymph # (Auto) 0.7 L (1.5-3.5) 10^3/uL [place] # (Auto) 0.5 (0.0-1.0) 10^3/uL Eos # (Auto) 0.2 (0.0-0.7) 10^3/uL Baso # (Auto) 0.0 (0.0-0.1) 10^3/uL Absolute Nucleated RBC 0.00 x10^3/uL Nucleated RBC % 0.1 /100WBC PT (9.9-12.6) secs INR (0.8-1.2) Sodium (135-145) mmol/L Potassium (3.5-5.0) mmol/L Chloride (101-111) mmol/L Carbon Dioxide (21-32) mmol/L Anion Gap (6-13) BUN (6-20) mg/dL Creatinine (0.6-1.2) mg/dL Estimated GFR (MDRD) (>89) Glucose (70-100) mg/dL Lactic Acid (0.5-2.2) mmol/L Calcium (8.5-10.3) mg/dL Phosphorus (2.5-4.6) mg/dL Magnesium (1.7-2.8) mg/dL Total Bilirubin (0.2-1.0) mg/dL AST (10-42) IU/L ALT (10-60) IU/L Alkaline Phosphatase (42-121) IU/L Troponin I (<0.49) ng/mL Total Protein (6.7-8.2) g/dL Albumin (3.2-5.5) g/dL Globulin (2.1-4.2) g/dL Albumin/Globulin Ratio (1.0-2.2) Lipase (22-51) U/L TSH (0.34-5.60) uIU/mL Cortisol AM Sample ug/dL Urine Color YELLOW Urine Clarity CLEAR (CLEAR) Urine pH 6.5 (5.0-7.5) PH Ur Specific [place] <=1.005 (1.002-1.030) Urine Protein NEGATIVE (NEGATIVE) mg/dL Urine Glucose (UA) NEGATIVE (NEGATIVE) mg/dL Urine Ketones NEGATIVE (NEGATIVE) mg/dL Urine Occult Blood NEGATIVE (NEGATIVE) Urine Nitrite NEGATIVE (NEGATIVE) Urine Bilirubin NEGATIVE (NEGATIVE) Urine Urobilinogen 0.2 (NORMAL) (NORMAL) E.U./dL Ur Leukocyte Esterase NEGATIVE (NEGATIVE) Ur Microscopic Review NOT INDICATED Urine Culture Comments NOT INDICATED Urine Creatinine 13.5 mg/dL Urine Sodium < 12.0 mmol/L Urine Potassium 35.3 mmol/L 04/25/18 04/25/18 04/25/18 Range/Units 23:35 23:35 23:35 WBC (4.8-10.8) x10^3/uL RBC (4.70-6.10) 10^6/uL Hgb (14.0-18.0) g/dL Hct (42.0-52.0) % MCV (80.0-94.0) fL MCH (27.0-31.0) pg MCHC (32.0-36.0) g/dL RDW (12.0-15.0) % Plt Count (130-450) 10^3/uL MPV (7.4-11.4) fL Neut # (Auto) (1.5-6.6) 10^3/uL Lymph # (Auto) (1.5-3.5) 10^3/uL [place] # (Auto) (0.0-1.0) 10^3/uL Eos # (Auto) (0.0-0.7) 10^3/uL Baso # (Auto) (0.0-0.1) 10^3/uL Absolute Nucleated RBC x10^3/uL Nucleated RBC % /100WBC PT (9.9-12.6) secs INR (0.8-1.2) Sodium 118 L* (135-145) mmol/L Potassium 4.9 (3.5-5.0) mmol/L Chloride 88 L (101-111) mmol/L Carbon Dioxide 23 (21-32) mmol/L Anion Gap 7.0 (6-13) BUN 7 (6-20) mg/dL Creatinine 0.7 (0.6-1.2) mg/dL Estimated GFR (MDRD) 117 (>89) Glucose 90 (70-100) mg/dL Lactic Acid 0.8 (0.5-2.2) mmol/L Calcium 8.6 (8.5-10.3) mg/dL Phosphorus (2.5-4.6) mg/dL Magnesium (1.7-2.8) mg/dL Total Bilirubin 1.0 (0.2-1.0) mg/dL AST 31 (10-42) IU/L ALT < 10 L (10-60) IU/L Alkaline Phosphatase 95 (42-121) IU/L Troponin I < 0.04 (<0.49) ng/mL Total Protein 6.7 (6.7-8.2) g/dL Albumin 3.6 (3.2-5.5) g/dL Globulin 3.1 (2.1-4.2) g/dL Albumin/Globulin Ratio 1.2 (1.0-2.2) Lipase 32 (22-51) U/L TSH (0.34-5.60) uIU/mL Cortisol AM Sample ug/dL Urine Color Urine Clarity (CLEAR) Urine pH (5.0-7.5) PH Ur Specific [place] (1.002-1.030) Urine Protein (NEGATIVE) mg/dL Urine Glucose (UA) (NEGATIVE) mg/dL Urine Ketones (NEGATIVE) mg/dL Urine Occult Blood (NEGATIVE) Urine Nitrite (NEGATIVE) Urine Bilirubin (NEGATIVE) Urine Urobilinogen (NORMAL) E.U./dL Ur Leukocyte Esterase (NEGATIVE) Ur Microscopic Review Urine Culture Comments Urine Creatinine mg/dL Urine Sodium mmol/L Urine Potassium mmol/L 04/25/18 Range/Units 23:35 WBC 4.5 L (4.8-10.8) x10^3/uL RBC 3.20 L (4.70-6.10) 10^6/uL Hgb 10.7 L (14.0-18.0) g/dL Hct 29.5 L (42.0-52.0) % MCV 92.2 (80.0-94.0) fL MCH 33.3 H (27.0-31.0) pg MCHC 36.2 H (32.0-36.0) g/dL RDW 14.6 (12.0-15.0) % Plt Count 138 (130-450) 10^3/uL MPV 7.1 L (7.4-11.4) fL Neut # (Auto) 2.6 (1.5-6.6) 10^3/uL Lymph # (Auto) 0.8 L (1.5-3.5) 10^3/uL [place] # (Auto) 0.7 (0.0-1.0) 10^3/uL Eos # (Auto) 0.2 (0.0-0.7) 10^3/uL Baso # (Auto) 0.1 (0.0-0.1) 10^3/uL Absolute Nucleated RBC 0.00 x10^3/uL Nucleated RBC % 0.0 /100WBC PT (9.9-12.6) secs INR (0.8-1.2) Sodium (135-145) mmol/L Potassium (3.5-5.0) mmol/L Chloride (101-111) mmol/L Carbon Dioxide (21-32) mmol/L Anion Gap (6-13) BUN (6-20) mg/dL Creatinine (0.6-1.2) mg/dL Estimated GFR (MDRD) (>89) Glucose (70-100) mg/dL Lactic Acid (0.5-2.2) mmol/L Calcium (8.5-10.3) mg/dL Phosphorus (2.5-4.6) mg/dL Magnesium (1.7-2.8) mg/dL Total Bilirubin (0.2-1.0) mg/dL AST (10-42) IU/L ALT (10-60) IU/L Alkaline Phosphatase (42-121) IU/L Troponin I (<0.49) ng/mL Total Protein (6.7-8.2) g/dL Albumin (3.2-5.5) g/dL Globulin (2.1-4.2) g/dL Albumin/Globulin Ratio (1.0-2.2) Lipase (22-51) U/L TSH (0.34-5.60) uIU/mL Cortisol AM Sample ug/dL Urine Color Urine Clarity (CLEAR) Urine pH (5.0-7.5) PH Ur Specific [place] (1.002-1.030) Urine Protein (NEGATIVE) mg/dL Urine Glucose (UA) (NEGATIVE) mg/dL Urine Ketones (NEGATIVE) mg/dL Urine Occult Blood (NEGATIVE) Urine Nitrite (NEGATIVE) Urine Bilirubin (NEGATIVE) Urine Urobilinogen (NORMAL) E.U./dL Ur Leukocyte Esterase (NEGATIVE) Ur Microscopic Review Urine Culture Comments Urine Creatinine mg/dL Urine Sodium mmol/L Urine Potassium mmol/L Impression and Recommendations - Palliative Care Impression: This is a 58-year-old gentleman with adenocarcinoma of the lung, Patient has known brain metastases status post CyberKnife, with recent seizures. Now presents acutely with hyponatremia, and functional decline. Patient continues to struggle, gets easily overwhelmed, with multiple stressors. Palliative care has been trying to assist with pain and symptom management, patient often misses his appointments. Recommendations/Counseling Done: 1. Pain of neoplastic origin. I would recommend keeping patient on his current regimen of OxyContin 20 mg 3 times daily, oxycodone 20 mg up to 4 times a day, and gabapentin 1600 mg twice daily. When patient is not in acute crisis this does seem to manage appropriately, he is aware of the limitations as far as what he is going to receive here. He just wants to be getting his baseline. This is communicated to the hospitalist. 2. Generalized weakness. Patient has had physical therapy, physical therapy at home, he is started on outpatient rehab. With the goal to improve his neck and shoulder pain and discomfort as well as kyphosis. Would recommend continue with physical therapy as patient is had multiple falls at home, any progress or improvement he can make care would be of benefit. 3. Seizures. Unfortunately patient's workup for seizures, and MRI are currently further delayed. Did follow-up with Dr. Castillo, left a message of patient's hospitalization. There seems to be some confusion about when patient is to restart immunotherapy, now given the delay in being able to evaluate for his brain metastases. We will follow-up next week. Patient quite anxious to have this answer. 4. Lower extremity edema. Patient at high risk for recurrent cellulitis, poor circulation, skin integrity often compromised. Patient has been using compression wraps, will have hospitalist order wound care support for wraps and evaluation 5. Advanced care planning. Patient has been evaluated for vandana, hopefully will have some increased support in the home, patient is easily overwhelmed, does not have a primary caregiver and gets often confused trying to manage all of his medical needs. Patient continues to express desires for full code, unable to identify D POA, does want to get this resolved, is hoping to get his children together over the next few months. Time Spent: 60 minutes with greater than 50% of this done in counseling and follow-up regarding patient's coordination of care for baseline pain management, lower extremity management, and counseling for goals of care.
[2018-04-26] MEDS: oxyCODONE ER 10 MG TABLET PO SCH ×3 (14:10→20:45)
--- NOTE | 2018-04-26 16:22 | PROVIDER PROGRESS NOTE ---
Subjective - Prog Note Date Prog Note Date: 04/26/18 - Subjective Pt reports feeling: No change Subjective: pt report he feel fatigue and weakness. he denies chest pain, fever, chill, cough, shortness of breath. Current Medications - Current Medications Current Medications: Active Medications Acetaminophen (Tylenol) 650 mg PO Q4HR PRN PRN Reason: Pain 1 to 4 Albuterol/Ipratropium (Duoneb) 3 ml INH Q4HR PRN PRN Reason: Wheezing Enoxaparin Sodium (Lovenox) 40 mg SUBQ DAILY [facility] Last Admin: 04/26/18 09:14 Dose: Not Given Gabapentin (Neurontin) 1,600 mg PO BID [facility] Last Admin: 04/26/18 09:14 Dose: 1,600 mg Sodium Chloride (Normal Saline 0.9%) 1,000 mls @ 125 mls/hr IV .Q8H [facility] Last Admin: 04/26/18 09:12 Dose: 125 mls/hr Levetiracetam (Keppra) 500 mg PO BID [facility] Last Admin: 04/26/18 09:14 Dose: 500 mg Lorazepam (Ativan) 1 mg PO Q8HR PRN PRN Reason: Anxiety Last Admin: 04/26/18 09:57 Dose: 1 mg Magnesium Oxide (Mag Ox) 400 mg PO DAILY [facility] Last Admin: 04/26/18 09:14 Dose: 400 mg Morphine Sulfate (Morphine (Carpuject)) 2 mg IVP Q2HR PRN PRN Reason: Pain 8 to 10 Nicotine (Nicoderm) 1 patch TOP DAILY [facility] Last Admin: 04/26/18 09:15 Dose: 1 patch Ondansetron HCl (Zofran Inj) 4 mg IVP Q6HR PRN PRN Reason: Nausea / Vomiting Oxycodone HCl (Oxycontin) 20 mg PO QID [facility] Last Admin: 04/26/18 14:10 Dose: 20 mg Pantoprazole Sodium (Protonix) 40 mg PO QDAC [facility] Last Admin: 04/26/18 06:31 Dose: 40 mg Polyethylene Glycol (Miralax) 17 gm PO DAILY [facility] Last Admin: 04/26/18 09:15 Dose: 17 gm Potassium Chloride (K-Dur) 40 meq PO BID [facility] Last Admin: 04/26/18 09:15 Dose: 40 meq Prednisone (Deltasone) 20 mg PO DAILYWM [facility] Last Admin: 04/26/18 09:15 Dose: 20 mg Prochlorperazine Edisylate (Compazine Inj) 10 mg IVP Q6HR PRN PRN Reason: Nausea / Vomiting Promethazine HCl (Phenergan Inj) 25 mg IM Q6HR PRN PRN Reason: Nausea / Vomiting Sodium Chloride (Normal Saline Flush 0.9%) 10 ml IVP PRN PRN PRN Reason: NEEDED PER PROVIDER ORDERS Sodium Chloride (Normal Saline Flush 0.9%) 10 ml IVP 0100,0900,1700 [facility] Last Admin: 04/26/18 09:15 Dose: Not Given Tamsulosin HCl (Flomax) 0.4 mg PO DAILY [facility] Last Admin: 04/26/18 09:15 Dose: 0.4 mg Lorazepam [Ativan] 1 mg PO Q8HR PRN 09/23/15 Tamsulosin [Flomax] 0.4 mg PO DAILY 06/29/16 Esomeprazole Magnesium [Nexium 24Hr] 20 mg PO DAILY 08/10/16 Oxycodone HCl [Oxycontin] 20 mg PO TID 07/04/17 Oxycodone HCl 10 - 20 mg PO Q4HR PRN MDD 8 tabs 07/26/17 Vitamin B Complex 1 tab PO DAILY 07/26/17 Sennosides [Senna Lax] 17.2 mg PO TID 08/10/17 Lidocaine Ointment 5% [Xylocaine Ointment 5%] 1 appful TOP PRN PRN 08/20/17 Melatonin 3 mg PO DAILY PM 08/29/17 Magnesium Oxide [Magnesium] 400 mg PO DAILY 08/30/17 Potassium Chloride [K-Dur] 40 meq PO BID MDD extra with diuretic 08/30/17 Gabapentin [Neurontin] 800 mg PO TID 09/27/17 Loperamide [Imodium] 2 mg PO Q4HR PRN 12/20/17 Polyethylene Glycol 3350 [Miralax] 17 gm PO DAILY PRN 02/13/18 Torsemide 20 mg PO BID 04/26/18 Triamterene/Hydrochlorothiazid [Triamterene-Hctz 37.5-25 mg Tb] 1 tab PO DAILY 04/26/18 Objective - Vital Signs/Intake & Output Reviewed Vital Signs: Yes Vital Signs: Vital Signs x48h Temp Pulse Pulse Resp BP BP Pulse Ox 04/26/18 16:00 36.9 C 84 24 111/62 98 04/26/18 13:18 36.6 C 100 22 117/74 94 04/26/18 11:15 87 14 Intake & Output: Intake & Output 04/23/18 04/24/18 04/25/18 04/26/18 23:59 23:59 23:59 23:59 Intake Total 3580.000 Output Total 4050 Balance -470.000 - Objective General Appearance: positive: No acute distress, Alert. negative: Lethargic Eyes Bilateral: positive: Normal inspection, PERRL, No lid inflammation, Conj unctivae nml ENT: positive: ENT inspection nml, Pharynx nml, No signs of dehydration. negative: Purulent nasal drainage, Pharyngeal erythema, Oral lesions Neck: positive: Nml inspection, Thyroid nml, No JVD, Trachea midline. negative: Thyromegaly, Lymphadenopathy (R), Lymphadenopathy (L), Stiff neck, Swelling/bruising, Tracheal deviation Respiratory: positive: Chest non-tender, No respiratory distress, Breath sounds nml. negative: Wheezes, Rales, Rhonchi Cardiovascular: positive: Regular rate & rhythm, No murmur, No gallop. negative: Irregularly irregular, Extrasystoles, Tachycardia, Bradycardia, JVD present, Systolic murmur, Diastolic murmur Peripheral Pulses: 2+ Radial (R), 2+ Radial (L), 2+ Dorsalis pedis (R), 2+ Dorsalis pedis (L) Abdomen: positive: Non-tender, No organomegaly, Nml bowel sounds, No distention. negative: Tenderness, Guarding, Rebound Back: positive: Nml inspection. negative: CVA tenderness (R), CVA tenderness (L) Skin: negative: Color nml Extremities: positive: Non-tender. negative: Calf tenderness, Joint swelling, Abhijit's sign/cords Neurologic/Psychiatric: positive: Oriented x3, Sensation nml, Mood/affect nml. negative: Weakness, Sensory loss, Facial droop, Slurred/abnml speech, Depressed mood/affect - Lab Results Fish Bones: 04/26/18 07:42 04/26/18 11:10 Other Labs: Lab Results x24hrs 04/26/18 04/26/18 04/26/18 Range/Units 11:10 07:42 07:42 WBC (4.8-10.8) x10^3/uL RBC (4.70-6.10) 10^6/uL Hgb (14.0-18.0) g/dL Hct (42.0-52.0) % MCV (80.0-94.0) fL MCH (27.0-31.0) pg MCHC (32.0-36.0) g/dL RDW (12.0-15.0) % Plt Count (130-450) 10^3/uL MPV (7.4-11.4) fL Neut # (Auto) (1.5-6.6) 10^3/uL Lymph # (Auto) (1.5-3.5) 10^3/uL [place] # (Auto) (0.0-1.0) 10^3/uL Eos # (Auto) (0.0-0.7) 10^3/uL Baso # (Auto) (0.0-0.1) 10^3/uL Absolute Nucleated RBC x10^3/uL Nucleated RBC % /100WBC PT (9.9-12.6) secs INR (0.8-1.2) Sodium 126 L (135-145) mmol/L Potassium 4.4 (3.5-5.0) mmol/L Chloride 97 L (101-111) mmol/L Carbon Dioxide 23 (21-32) mmol/L Anion Gap 6.0 (6-13) BUN 7 (6-20) mg/dL Creatinine 0.7 (0.6-1.2) mg/dL Estimated GFR (MDRD) 117 (>89) Glucose 94 (70-100) mg/dL Lactic Acid (0.5-2.2) mmol/L Calcium 8.4 L (8.5-10.3) mg/dL Phosphorus (2.5-4.6) mg/dL Magnesium (1.7-2.8) mg/dL Total Bilirubin (0.2-1.0) mg/dL AST (10-42) IU/L ALT (10-60) IU/L Alkaline Phosphatase (42-121) IU/L Troponin I (<0.49) ng/mL Total Protein (6.7-8.2) g/dL Albumin (3.2-5.5) g/dL Globulin (2.1-4.2) g/dL Albumin/Globulin Ratio (1.0-2.2) Lipase (22-51) U/L TSH 5.58 (0.34-5.60) uIU/mL Cortisol AM Sample 1.4 ug/dL Urine Color Urine Clarity (CLEAR) Urine pH (5.0-7.5) PH Ur Specific [place] (1.002-1.030) Urine Protein (NEGATIVE) mg/dL Urine Glucose (UA) (NEGATIVE) mg/dL Urine Ketones (NEGATIVE) mg/dL Urine Occult Blood (NEGATIVE) Urine Nitrite (NEGATIVE) Urine Bilirubin (NEGATIVE) Urine Urobilinogen (NORMAL) E.U./dL Ur Leukocyte Esterase (NEGATIVE) Ur Microscopic Review Urine Culture Comments Urine Creatinine mg/dL Urine Sodium mmol/L Urine Potassium mmol/L 04/26/18 04/26/18 04/26/18 Range/Units 07:42 07:42 07:42 WBC (4.8-10.8) x10^3/uL RBC (4.70-6.10) 10^6/uL Hgb (14.0-18.0) g/dL Hct (42.0-52.0) % MCV (80.0-94.0) fL MCH (27.0-31.0) pg MCHC (32.0-36.0) g/dL RDW (12.0-15.0) % Plt Count (130-450) 10^3/uL MPV (7.4-11.4) fL Neut # (Auto) (1.5-6.6) 10^3/uL Lymph # (Auto) (1.5-3.5) 10^3/uL [place] # (Auto) (0.0-1.0) 10^3/uL Eos # (Auto) (0.0-0.7) 10^3/uL Baso # (Auto) (0.0-0.1) 10^3/uL Absolute Nucleated RBC x10^3/uL Nucleated RBC % /100WBC PT 14.7 H (9.9-12.6) secs INR 1.3 H (0.8-1.2) Sodium 126 L (135-145) mmol/L Potassium 4.4 (3.5-5.0) mmol/L Chloride 97 L (101-111) mmol/L Carbon Dioxide 22 (21-32) mmol/L Anion Gap 7.0 (6-13) BUN 7 (6-20) mg/dL Creatinine 0.6 (0.6-1.2) mg/dL Estimated GFR (MDRD) 139 (>89) Glucose 90 (70-100) mg/dL Lactic Acid 0.6 (0.5-2.2) mmol/L Calcium 8.6 (8.5-10.3) mg/dL Phosphorus 4.0 (2.5-4.6) mg/dL Magnesium 1.7 (1.7-2.8) mg/dL Total Bilirubin (0.2-1.0) mg/dL AST (10-42) IU/L ALT (10-60) IU/L Alkaline Phosphatase (42-121) IU/L Troponin I (<0.49) ng/mL Total Protein (6.7-8.2) g/dL Albumin (3.2-5.5) g/dL Globulin (2.1-4.2) g/dL Albumin/Globulin Ratio (1.0-2.2) Lipase (22-51) U/L TSH (0.34-5.60) uIU/mL Cortisol AM Sample ug/dL Urine Color Urine Clarity (CLEAR) Urine pH (5.0-7.5) PH Ur Specific [place] (1.002-1.030) Urine Protein (NEGATIVE) mg/dL Urine Glucose (UA) (NEGATIVE) mg/dL Urine Ketones (NEGATIVE) mg/dL Urine Occult Blood (NEGATIVE) Urine Nitrite (NEGATIVE) Urine Bilirubin (NEGATIVE) Urine Urobilinogen (NORMAL) E.U./dL Ur Leukocyte Esterase (NEGATIVE) Ur Microscopic Review Urine Culture Comments Urine Creatinine mg/dL Urine Sodium mmol/L Urine Potassium mmol/L 04/26/18 04/26/18 04/26/18 Range/Units 07:42 02:48 00:46 WBC 3.8 L (4.8-10.8) x10^3/uL RBC 3.33 L (4.70-6.10) 10^6/uL Hgb 11.0 L (14.0-18.0) g/dL Hct 30.9 L (42.0-52.0) % MCV 92.8 (80.0-94.0) fL MCH 33.1 H (27.0-31.0) pg MCHC 35.6 (32.0-36.0) g/dL RDW 14.6 (12.0-15.0) % Plt Count 136 (130-450) 10^3/uL MPV 7.3 L (7.4-11.4) fL Neut # (Auto) 2.4 (1.5-6.6) 10^3/uL Lymph # (Auto) 0.7 L (1.5-3.5) 10^3/uL [place] # (Auto) 0.5 (0.0-1.0) 10^3/uL Eos # (Auto) 0.2 (0.0-0.7) 10^3/uL Baso # (Auto) 0.0 (0.0-0.1) 10^3/uL Absolute Nucleated RBC 0.00 x10^3/uL Nucleated RBC % 0.1 /100WBC PT (9.9-12.6) secs INR (0.8-1.2) Sodium (135-145) mmol/L Potassium (3.5-5.0) mmol/L Chloride (101-111) mmol/L Carbon Dioxide (21-32) mmol/L Anion Gap (6-13) BUN (6-20) mg/dL Creatinine (0.6-1.2) mg/dL Estimated GFR (MDRD) (>89) Glucose (70-100) mg/dL Lactic Acid (0.5-2.2) mmol/L Calcium (8.5-10.3) mg/dL Phosphorus (2.5-4.6) mg/dL Magnesium (1.7-2.8) mg/dL Total Bilirubin (0.2-1.0) mg/dL AST (10-42) IU/L ALT (10-60) IU/L Alkaline Phosphatase (42-121) IU/L Troponin I (<0.49) ng/mL Total Protein (6.7-8.2) g/dL Albumin (3.2-5.5) g/dL Globulin (2.1-4.2) g/dL Albumin/Globulin Ratio (1.0-2.2) Lipase (22-51) U/L TSH (0.34-5.60) uIU/mL Cortisol AM Sample ug/dL Urine Color YELLOW Urine Clarity CLEAR (CLEAR) Urine pH 6.5 (5.0-7.5) PH Ur Specific [place] <=1.005 (1.002-1.030) Urine Protein NEGATIVE (NEGATIVE) mg/dL Urine Glucose (UA) NEGATIVE (NEGATIVE) mg/dL Urine Ketones NEGATIVE (NEGATIVE) mg/dL Urine Occult Blood NEGATIVE (NEGATIVE) Urine Nitrite NEGATIVE (NEGATIVE) Urine Bilirubin NEGATIVE (NEGATIVE) Urine Urobilinogen 0.2 (NORMAL) (NORMAL) E.U./dL Ur Leukocyte Esterase NEGATIVE (NEGATIVE) Ur Microscopic Review NOT INDICATED Urine Culture Comments NOT INDICATED Urine Creatinine 13.5 mg/dL Urine Sodium < 12.0 mmol/L Urine Potassium 35.3 mmol/L 04/25/18 04/25/18 04/25/18 Range/Units 23:35 23:35 23:35 WBC (4.8-10.8) x10^3/uL RBC (4.70-6.10) 10^6/uL Hgb (14.0-18.0) g/dL Hct (42.0-52.0) % MCV (80.0-94.0) fL MCH (27.0-31.0) pg MCHC (32.0-36.0) g/dL RDW (12.0-15.0) % Plt Count (130-450) 10^3/uL MPV (7.4-11.4) fL Neut # (Auto) (1.5-6.6) 10^3/uL Lymph # (Auto) (1.5-3.5) 10^3/uL [place] # (Auto) (0.0-1.0) 10^3/uL Eos # (Auto) (0.0-0.7) 10^3/uL Baso # (Auto) (0.0-0.1) 10^3/uL Absolute Nucleated RBC x10^3/uL Nucleated RBC % /100WBC PT (9.9-12.6) secs INR (0.8-1.2) Sodium 118 L* (135-145) mmol/L Potassium 4.9 (3.5-5.0) mmol/L Chloride 88 L (101-111) mmol/L Carbon Dioxide 23 (21-32) mmol/L Anion Gap 7.0 (6-13) BUN 7 (6-20) mg/dL Creatinine 0.7 (0.6-1.2) mg/dL Estimated GFR (MDRD) 117 (>89) Glucose 90 (70-100) mg/dL Lactic Acid 0.8 (0.5-2.2) mmol/L Calcium 8.6 (8.5-10.3) mg/dL Phosphorus (2.5-4.6) mg/dL Magnesium (1.7-2.8) mg/dL Total Bilirubin 1.0 (0.2-1.0) mg/dL AST 31 (10-42) IU/L ALT < 10 L (10-60) IU/L Alkaline Phosphatase 95 (42-121) IU/L Troponin I < 0.04 (<0.49) ng/mL Total Protein 6.7 (6.7-8.2) g/dL Albumin 3.6 (3.2-5.5) g/dL Globulin 3.1 (2.1-4.2) g/dL Albumin/Globulin Ratio 1.2 (1.0-2.2) Lipase 32 (22-51) U/L TSH (0.34-5.60) uIU/mL Cortisol AM Sample ug/dL Urine Color Urine Clarity (CLEAR) Urine pH (5.0-7.5) PH Ur Specific [place] (1.002-1.030) Urine Protein (NEGATIVE) mg/dL Urine Glucose (UA) (NEGATIVE) mg/dL Urine Ketones (NEGATIVE) mg/dL Urine Occult Blood (NEGATIVE) Urine Nitrite (NEGATIVE) Urine Bilirubin (NEGATIVE) Urine Urobilinogen (NORMAL) E.U./dL Ur Leukocyte Esterase (NEGATIVE) Ur Microscopic Review Urine Culture Comments Urine Creatinine mg/dL Urine Sodium mmol/L Urine Potassium mmol/L 04/25/18 Range/Units 23:35 WBC 4.5 L (4.8-10.8) x10^3/uL RBC 3.20 L (4.70-6.10) 10^6/uL Hgb 10.7 L (14.0-18.0) g/dL Hct 29.5 L (42.0-52.0) % MCV 92.2 (80.0-94.0) fL MCH 33.3 H (27.0-31.0) pg MCHC 36.2 H (32.0-36.0) g/dL RDW 14.6 (12.0-15.0) % Plt Count 138 (130-450) 10^3/uL MPV 7.1 L (7.4-11.4) fL Neut # (Auto) 2.6 (1.5-6.6) 10^3/uL Lymph # (Auto) 0.8 L (1.5-3.5) 10^3/uL [place] # (Auto) 0.7 (0.0-1.0) 10^3/uL Eos # (Auto) 0.2 (0.0-0.7) 10^3/uL Baso # (Auto) 0.1 (0.0-0.1) 10^3/uL Absolute Nucleated RBC 0.00 x10^3/uL Nucleated RBC % 0.0 /100WBC PT (9.9-12.6) secs INR (0.8-1.2) Sodium (135-145) mmol/L Potassium (3.5-5.0) mmol/L Chloride (101-111) mmol/L Carbon Dioxide (21-32) mmol/L Anion Gap (6-13) BUN (6-20) mg/dL Creatinine (0.6-1.2) mg/dL Estimated GFR (MDRD) (>89) Glucose (70-100) mg/dL Lactic Acid (0.5-2.2) mmol/L Calcium (8.5-10.3) mg/dL Phosphorus (2.5-4.6) mg/dL Magnesium (1.7-2.8) mg/dL Total Bilirubin (0.2-1.0) mg/dL AST (10-42) IU/L ALT (10-60) IU/L Alkaline Phosphatase (42-121) IU/L Troponin I (<0.49) ng/mL Total Protein (6.7-8.2) g/dL Albumin (3.2-5.5) g/dL Globulin (2.1-4.2) g/dL Albumin/Globulin Ratio (1.0-2.2) Lipase (22-51) U/L TSH (0.34-5.60) uIU/mL Cortisol AM Sample ug/dL Urine Color Urine Clarity (CLEAR) Urine pH (5.0-7.5) PH Ur Specific [place] (1.002-1.030) Urine Protein (NEGATIVE) mg/dL Urine Glucose (UA) (NEGATIVE) mg/dL Urine Ketones (NEGATIVE) mg/dL Urine Occult Blood (NEGATIVE) Urine Nitrite (NEGATIVE) Urine Bilirubin (NEGATIVE) Urine Urobilinogen (NORMAL) E.U./dL Ur Leukocyte Esterase (NEGATIVE) Ur Microscopic Review Urine Culture Comments Urine Creatinine mg/dL Urine Sodium mmol/L Urine Potassium mmol/L ABX Reporting Has patient been on IV antibiotics over the past 48 hours?: No Assessment/Plan - Problem List (1) Hyponatremia Impression: Na is 126, less than 10 per 24 hours, not too fast adjusted, improved continue NS IV. pt's cortsol is low, add Prednisone 20 mg continue lab monitor (2) Tobacco abuse encourage pt quit (3) Metastatic adenocarcinoma to lung Conclusion/Plan: continue antiepileptic medication continue follow up oncologist as out-pt (4) Chronic pain Conclusion/Plan: continue home pain regimen (5) COPD (chronic obstructive pulmonary disease) with acute bronchitis stable, continue duo nebs as needed and oxygen as needed. Patient will also be continued on montelukast (6) Peripheral neuropathy history of peripheral neuropathy, continue gabapentin (7) BPH (benign prostatic hyperplasia) history of BPH, continue to uses Flomax at home. (8) Alcohol abuse Conclusion/Plan: Ativan as needed, continue CIWA protocol. Patient was counseled on the need to quit drinking. (9) Anemia Conclusion/Plan: hemoglobin is stable, anemia is believed to be related to his alcohol abuse, no any active signs of bleeding. monitor the hemoglobin daily.
[2018-04-26 17:39] LABS: CALCIUM 8.7 mg/dL (8.5-10.3); CREATININE 0.7 mg/dL (0.6-1.2)
[2018-04-26] MEDS: LORazepam 2 MG/ML VIAL IVP PRN ×2 (18:07→21:39)
--- NOTE | 2018-04-26 19:10 | Ultrasound Report ---
Reason: swelling, special left lower extremity Procedure Date: 04/26/2018 Accession Number: [id number] / [id number] Procedure: US - Duplex Ext Veins Bilateral CPT Code: FULL RESULT: EXAM: BILATERAL LOWER EXTREMITY VENOUS ULTRASOUND EXAM DATE: 04/26/2018 03:22 PM. CLINICAL HISTORY: Swelling, special left lower extremity. COMPARISON: None. TECHNIQUE: Real-time sonographic vascular imaging was performed by the resident physician in radiology through the lower extremities utilizing both color-flow and Doppler spectral analysis. Multiple patient financial representative static images were saved for review. FINDINGS: Right: Common Femoral Vein (CFV): Normal. CFV-GSV Junction: Normal. Profunda Femoral Vein (PFV): Normal. Femoral Vein (FV) Prox: Normal. Femoral Vein (FV) Mid: Normal. Femoral Vein (FV) Dist: Normal. Popliteal Vein: Normal. Left: Not imaged. Other: None. IMPRESSION: 1. No evidence of deep venous thrombosis within the right lower extremity above the level of the popliteal vein. 2. The left lower extremity was not imaged. RADIA
[2018-04-26 23:54] LABS: CALCIUM 8.4 mg/dL (8.5-10.3); CREATININE 0.8 mg/dL (0.6-1.2)
[2018-04-27 05:41] LABS: EOSINOPHILS % (AUTO) 1.3 %; HGB - HEMOGLOBIN 10.9 g/dL (14.0-18.0); LYMPHOCYTES # (AUTO) 0.8 10^3/uL (1.5-3.5); LYMPHOCYTES % (AUTO) 21.3 %; MEAN CORPUSCULAR HEMOGLOBIN 32.5 pg (27.0-31.0); MEAN CORPUSCULAR HGB CONC 34.5 g/dL (32.0-36.0); MEAN PLATELET VOLUME 7.3 fL (7.4-11.4); MONOCYTES # (AUTO) 0.5 10^3/uL (0.0-1.0); MONOCYTES % (AUTO) 14.3 %; NEUTROPHILS # (AUTO) 2.4 10^3/uL (1.5-6.6); NEUTROPHILS % (AUTO) 62.1 %; PLT - PLATELET COUNT 136 10^3/uL (130-450); RED BLOOD COUNT 3.37 10^6/uL (4.70-6.10); RED CELL DISTRIBUTION WIDTH 15.3 % (12.0-15.0); WHITE BLOOD COUNT 3.8 x10^3/uL (4.8-10.8)
[2018-04-27 05:52] LABS: CALCIUM 8.8 mg/dL (8.5-10.3); CREATININE 0.7 mg/dL (0.6-1.2); MAGNESIUM 1.7 mg/dL (1.7-2.8); PHOSPHORUS 3.4 mg/dL (2.5-4.6)
[2018-04-27] MEDS: SODIUM CHLORIDE 0.9% 1,000 ML IV SCH (07:23)
[2018-04-27] MEDS: oxyCODONE ER 10 MG TABLET PO SCH (08:19)
[2018-04-27] MEDS: predniSONE 20 MG TABLET PO SCH (08:21)
[2018-04-27] MEDS: PANTOPRAZOLE 40 MG TABLET PO SCH (08:21)
[2018-04-27] MEDS: TAMSULOSIN 0.4 MG CAPSULE PO SCH (08:23)
[2018-04-27] MEDS: levETIRAcetam 250 MG TABLET PO SCH (08:23)
[2018-04-27] MEDS: GABAPENTIN 400 MG CAPSULE PO SCH (08:23)
[2018-04-27] MEDS: POTASSIUM CHLORIDE 20 MEQ TABLET PO SCH (08:24)
[2018-04-27] MEDS: PRENATAL VITAMIN TABLET PO SCH ×2 (08:24→09:54)
[2018-04-27] MEDS: MAGNESIUM OXIDE 400 MG TABLET PO SCH (08:25)
[2018-04-27] MEDS: POLYETHYLENE GLYCOL 3350 17 GM PACKET PO SCH (08:27)
[2018-04-27] MEDS: SODIUM CHLORIDE FLUSH 0.9% 10 ML SYRINGE IVP SCH (08:31)
[2018-04-27] MEDS: ENOXAPARIN 40 MG/0.4 ML SYRINGE SUBQ SCH (08:40)
[2018-04-27] MEDS: NICOTINE 14 MG PATCH TOP SCH (08:41)
[2018-04-27] MEDS ORDERED: THIAMINE 100 MG TABLET PO SCH (09:00)
[2018-04-27] MEDS ORDERED: SENNA 8.6 MG TABLET PO SCH (09:00)
[2018-04-27 11:17] LABS: CALCIUM 8.9 mg/dL (8.5-10.3); CREATININE 0.8 mg/dL (0.6-1.2)
--- NOTE | 2018-04-27 11:45 | Discharge Plan ---
Discharge Plan Disposition: 01 Home, Self Care Condition: Serious Prescriptions: Prednisone 10 mg PO DAILY #7 [id number] Diet: Regular Activity Restrictions: Activity as Tolerated Shower Restrictions: No (fall precaution) Instruction Topics: Prednisone tablets, Alcoholism Get Help, Quit Smoking Get Support, Smoke Free Benefits, Hyponatremia Dc, ED Fall Dizziness Weakn Balance Additional Instructions or Follow Up instructions: You may follow up your PCP in one week, recheck your electrolytic including sodium, followup your oncologist at out-pt. Your Sodium increase to 130 from 118. You are advised to hold Triamterene-hydrochlorothiazide because this medication will reduce sodium. Your Cortisol in the test is low, you are prescribed 10 mg Prednison daily, please follow up your PCP to continue management. Should your symptoms return or worsen, you may present ER or call 911 for help. No Smoking: If you smoke, Please STOP! Call for help. Follow-up with: Yessica Patel ARNP [Provider Admit Priv/Credential] -
--- NOTE | 2018-04-27 12:17 | DISCHARGE SUMMARY ---
Discharge Summary Discharge Date: 04/27/18 Discharging Provider: Rolando Arreguin Primary Care Provider: Yessica Leija Condition at Discharge: Serious Discharge Disposition: 01 Home, Self Care Discharge Facility Name: home - DIAGNOSES Admission Diagnoses: (1) Hyponatremia (2) Tobacco abuse (3) Metastatic adenocarcinoma to lung (4) Chronic pain (5) COPD (chronic obstructive pulmonary disease) with acute bronchitis (6) Peripheral neuropathy (7) BPH (benign prostatic hyperplasia) (8) Alcohol abuse (9) Anemia Discharge Diagnoses with Status of Each Condition: (1) generalized weakness great improved, walk with PT per PT report. pt report he is ready to be d/c. 2) Hyponatremia improved from 118 to 130, reach pt's baseline. pt has chronic hyponatremia hold pt's home meds hydrochlorothiazide (3) Tobacco abuse advise pt quit (4) Metastatic adenocarcinoma to lung continue followup his oncologist, follow up palliative care (5) Chronic pain stable, follow up palliative care (6) COPD (chronic obstructive pulmonary disease) with acute bronchitis stable (7) Peripheral neuropathy stable, continue home regimen (8) BPH (benign prostatic hyperplasia) stable (9) Alcohol abuse pt even bring lots of alcohol into hospital advise pt reduce and finally cut (10) Anemia stable. (11) low cortisol level Cortisol level is down to 1.4 at morning, and pt is with hyponatremia prescribed is prescribe 10 mg Prednisone daily, follow up PCP and palliative care management. - HPI History of Present Illness: refer from Dr. 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 The patient states that his symptoms have been ongoing for 3 weeks and have become progressively worse. He states that he has been having generalized weakness with falls at home, shakiness and nausea. He states that he has been feeling weaker and weaker to the point where today he states he could barely stand up out of his chair on his own. He states that he is continued to have nausea and vomits twice a day. He also states that he has been having diarrhea for the last several weeks. He states that he has a chronic cough and chronic shortness of breath which are getting worse. He also states that he has chronic chest pain that is getting worse. He also states that his pain in his neck, back, feet and shoulders has been getting worse as he has had several falls. The patient also states that he has been confused more t lloyd normal. When asked he cannot really specify what he has been confused about. He states that normal stuff that he would know he is been confused on. The patient has been in the emergency room 3 times in the last month with similar complaints. He was last admitted in July 2017 after a syncopal episode. On previous visits to the emergency department the patient has been found to have hyponatremia but not severe enough to require admission. The patient is followed at home by palliative care. The patient denies any headache, blurred vision, runny nose, sore throat, nasal congestion, orthopnea, PND, abdominal pain, urinary urgency, urinary frequency, dysuria, recent unintentional weight loss, change in his appetite, skin rash, skin changes, dizziness, polyuria, polydipsia, night sweats or any focal neurologic deficits. On presentation to the emergency department the patient is afebrile and slightly hypoxic with a oxygen saturation of 91% on room air. The patient's vital signs are otherwise stable. Patient underwent routine blood work given his generalized weakness which did reveal a mild leukopenia, anemia and severe hyponatremia. The patient's sodium was found to be 118 with a chloride of 88. The remainder of the patient's lab work was within normal limits. The patient had a negative urine analysis. Given the patient's severe hyponatremia with generalized weakness and confusion the patient was admitted to the [facility] for treatment of severe hyponatremia. - HOSPITAL COURSE Hospital Course: pt was admitted for generalized weakness. pt had PT/OT evaluation and treatment, and had TSH, cortisol test. pt was found low cortisol level and hyponatremia at 118. Pt was treated with hydration with NS, and prescribed prednisone. After treatment, pt's Na level is increase to 130. pt report he had much more strong and walk with PT. he state he is ready to D/C to home. - ALLERGIES Allergies/Adverse Reactions: Allergies Allergy/AdvReac Type Severity Reaction Status Date / Time BRONWYN Inhibitors Allergy Emesis Verified 04/15/18 23:38 amoxicillin [From Augmentin] Allergy Emesis Verified 04/15/18 23:38 clavulanic acid Allergy Emesis Verified 04/15/18 23:38 [From Augmentin] lisinopril Allergy "THROAT Verified 04/15/18 23:38 SWELLING" - MEDICATIONS Home Medications: Ambulatory Orders Medication Instructions Recorded Confirmed Lorazepam [Ativan] 1 mg PO Q8HR PRN 09/23/15 04/26/18 Tamsulosin [Flomax] 0.4 mg PO DAILY 06/29/16 04/26/18 Esomeprazole Magnesium [Nexium 20 mg PO DAILY 08/10/16 04/26/18 24Hr] Oxycodone HCl [Oxycontin] 20 mg PO TID 07/04/17 04/26/18 Oxycodone HCl 10 - 20 mg PO Q4HR PRN MDD 8 tabs 07/26/17 04/26/18 Vitamin B Complex 1 tab PO DAILY 07/26/17 04/26/18 Sennosides [Senna Lax] 17.2 mg PO TID 08/10/17 04/26/18 Lidocaine Ointment 5% [Xylocaine 1 appful TOP PRN PRN 08/20/17 04/26/18 Ointment 5%] Melatonin 3 mg PO DAILY PM 08/29/17 04/26/18 Magnesium Oxide [Magnesium] 400 mg PO DAILY 08/30/17 04/26/18 Potassium Chloride [K-Dur] 40 meq PO BID MDD extra with 08/30/17 04/26/18 diuretic Gabapentin [Neurontin] 800 mg PO TID 09/27/17 04/26/18 Levetiracetam [Keppra] 500 mg PO BID #30 tablet 11/23/17 04/26/18 Loperamide [Imodium] 2 mg PO Q4HR PRN 12/20/17 04/26/18 Polyethylene Glycol 3350 [Miralax] 17 gm PO DAILY PRN 02/13/18 04/26/18 Ondansetron Odt [Zofran Odt] 4 mg TL Q6H PRN #15 tablet 03/19/18 04/26/18 Torsemide 20 mg PO BID 04/26/18 04/26/18 Prednisone 10 mg PO DAILY #7 tab.ds.pk 04/27/18 - PHYSICAL EXAM AT DISCHARGE General Appearance: positive: No acute distress, Alert. negative: Lethargic Eyes Bilateral: positive: Normal inspection, PERRL, No lid inflammation, Conjunctivae nml ENT: positive: ENT inspection nml, Pharynx nml, No signs of dehydration. negative: Purulent nasal drainage, Pharyngeal erythema, Oral lesions Neck: positive: Nml inspection, Thyroid nml, No JVD, Trachea midline. negative: Thyromegaly, Lymphadenopathy (R), Lymphadenopathy (L), Stiff neck, Swelling/bruising, Tracheal deviation Respiratory: positive: Chest non-tender, No respiratory distress, Breath sounds nml. negative: Wheezes, Rales, Rhonchi Cardiovascular: positive: Regular rate & rhythm, No murmur, No gallop. negative: Irregularly irregular, Extrasystoles, Tachycardia, Bradycardia, JVD present, Systolic murmur, Diastolic murmur Peripheral Pulses: positive: 2+ Abdomen: positive: Non-tender, No organomegaly, Nml bowel sounds, No distention. negative: Tenderness, Guarding, Rebound Back: positive: Nml inspection. negative: CVA tenderness (R), CVA tenderness (L) Skin: positive: Color nml, No rash, Warm, Dry. negative: Cyanosis, Diaphoresis, Pallor Extremities: positive: Non-tender. negative: Calf tenderness, Joint swelling, Abhijit's sign/cords Neurologic/Psychiatric: positive: Oriented x3, Sensation nml. negative: Weakness, Sensory loss, Facial droop, Slurred/abnml speech, Depressed mood/af fect - LABS Result Diagrams: 04/27/18 05:15 04/27/18 11:00 - FOLLOW UP Follow Up: You may follow up your PCP in one week, recheck your electrolytic including sodium, followup your oncologist at out-pt. Your Sodium increase to 130 from 118. You are advised to hold Triamterene-hydrochlorothiazide because this medication will reduce sodium. Your Cortisol in the test is low, you are prescribed 10 mg Prednison daily, please follow up your PCP to continue management. Should your symptoms return or worsen, you may present ER or call 911 for help. - TIME SPENT Time Spent in Discharge (Minutes): 50
[2018-04-27 12:35] VITALS: BP 127/78
== END 2018-04-27 13:10 | disposition home or self-care (01) | DRG 641 ==
LOC: EDUNIT# → ED 23:14 → MS2 04-26 01:54
PROVIDERS: ADMIT Internal Medicine; ATTEND Nurse Practitioner Gerontology
DX: E87.1 Hypo-osmolality and hyponatremia (principal); J44.0 Chronic obstructive pulmonary disease with (acute) lower respiratory infection; E27.40 Unspecified adrenocortical insufficiency; C78.01 Secondary malignant neoplasm of right lung; C79.31 Secondary malignant neoplasm of brain; J20.9 Acute bronchitis, unspecified; G62.9 Polyneuropathy, unspecified; F10.20 Alcohol dependence, uncomplicated; F17.210 Nicotine dependence, cigarettes, uncomplicated; D63.8 Anemia in other chronic diseases classified elsewhere; I10 Essential (primary) hypertension; G40.909 Epilepsy, unspecified, not intractable, without status epilepticus; I73.9 Peripheral vascular disease, unspecified; I87.2 Venous insufficiency (chronic) (peripheral); K21.9 Gastro-esophageal reflux disease without esophagitis; F41.9 Anxiety disorder, unspecified; M54.9 Dorsalgia, unspecified; I25.10 Atherosclerotic heart disease of native coronary artery without angina pectoris; M25.519 Pain in unspecified shoulder; M25.562 Pain in left knee; M25.561 Pain in right knee; M79.672 Pain in left foot; G89.3 Neoplasm related pain (acute) (chronic); R60.0 Localized edema; M79.671 Pain in right foot; D72.819 Decreased white blood cell count, unspecified; K59.09 Other constipation; N40.1 Benign prostatic hyperplasia with lower urinary tract symptoms; N39.498 Other specified urinary incontinence; R35.0 Frequency of micturition; R35.1 Nocturia; H54.7 Unspecified visual loss; Z51.5 Encounter for palliative care; Z89.422 Acquired absence of other left toe(s); Z79.51 Long term (current) use of inhaled steroids; Z79.891 Long term (current) use of opiate analgesic; Z79.899 Other long term (current) drug therapy; Z92.3 Personal history of irradiation; Z85.118 Personal history of other malignant neoplasm of bronchus and lung
CPT/HCPCS: 36415; 71045; 80048; 80053; 81001; 81003; 82533; 82570; 83605; 83690; 83735; 83930; 83935; 84100; 84133; 84300; 84443; 84484; 85025; 85610; 87086; 87640; 93970; 99233; 99283; 99284

== ENCOUNTER 2018-05-02 18:38 | Outpatient (CLI) | payer MEDICAID | END 2018-05-02 18:39 | disposition critical access hospital (66) | LOC: EMS 18:38 | PROVIDERS: ATTEND Surgery | DX: R41.82 Altered mental status, unspecified (principal); R53.1 Weakness | CPT/HCPCS: A0425; A0429; A0999 ==

== ENCOUNTER 2018-05-02 19:16 | Observation (INO) | payer MEDICAID ==
[2018-05-02 19:59] LABS: BASOPHILS # (AUTO) 0.1 10^3/uL (0.0-0.1); EOSINOPHILS # (AUTO) 0.1 10^3/uL (0.0-0.7); EOSINOPHILS % (AUTO) 1.2 %; HGB - HEMOGLOBIN 11.1 g/dL (14.0-18.0); LYMPHOCYTES # (AUTO) 0.9 10^3/uL (1.5-3.5); LYMPHOCYTES % (AUTO) 11.6 %; MEAN CORPUSCULAR HEMOGLOBIN 32.1 pg (27.0-31.0); MEAN CORPUSCULAR HGB CONC 34.3 g/dL (32.0-36.0); MEAN CORPUSCULAR VOLUME 93.7 fL (80.0-94.0); MEAN PLATELET VOLUME 6.5 fL (7.4-11.4); MONOCYTES # (AUTO) 1.1 10^3/uL (0.0-1.0); MONOCYTES % (AUTO) 13.8 %; NEUTROPHILS # (AUTO) 5.9 10^3/uL (1.5-6.6); NEUTROPHILS % (AUTO) 72.4 %; PLT - PLATELET COUNT 151 10^3/uL (130-450); RED BLOOD COUNT 3.47 10^6/uL (4.70-6.10); WHITE BLOOD COUNT 8.2 x10^3/uL (4.8-10.8)
[2018-05-02 20:15] LABS: ACETAMINOPHEN < 10 ug/mL (10-30); ALBUMIN 4.1 g/dL (3.2-5.5); ALBUMIN/GLOBULIN RATIO 1.3 (1.0-2.2); ALKALINE PHOSPHATASE 99 IU/L (42-121); ALT ALANINE AMINOTRANSFERASE 28 IU/L (10-60); AST ASPARTATE AMINOTRANSFERASE 137 IU/L (10-42); BILIRUBIN,TOTAL 1.7 mg/dL (0.2-1.0); BUN - BLOOD UREA NITROGEN 18 mg/dL (6-20); CALCIUM 8.9 mg/dL (8.5-10.3); CARBON DIOXIDE - CO2 24 mmol/L (21-32); CHLORIDE 95 mmol/L (101-111); CREATININE 1.2 mg/dL (0.6-1.2); GFR - MDRD 63 (>89); GLUCOSE 99 mg/dL (70-100); LIPASE 32 U/L (22-51); SALICYLATE < 6.0 mg/dL; SODIUM 128 mmol/L (135-145); TOTAL PROTEIN 7.2 g/dL (6.7-8.2)
[2018-05-02 20:38] LABS: MUDS CUTOFF CONCENTRATIONS CUTOFF CONC BELOW:
[2018-05-02 20:41] LABS: BILIRUBIN,URINE NEGATIVE (NEGATIVE); GLUCOSE, URINE (UA) NEGATIVE (NEGATIVE); KETONES,URINE (UA) NEGATIVE (NEGATIVE); LEUKOCYTE ESTERASE, URINE NEGATIVE (NEGATIVE); NITRITE,URINE NEGATIVE (NEGATIVE); OCCULT BLOOD,URINE SMALL (NEGATIVE); PH,URINE 5.5 PH (5.0-7.5); PROTEIN,URINE NEGATIVE (NEGATIVE); UROBILINOGEN,URINE 0.2 (NORMAL) E.U./dL (NORMAL)
[2018-05-02 20:52] LABS: CLARITY,URINE CLEAR (CLEAR)
[2018-05-02 20:53] LABS: BACTERIA,URINE None Seen /HPF (None Seen); RBC,URINE 0-5 /HPF (0-5); SQUAMOUS EPITHELIAL CELL,UR RARE Squamous (<= Few)
[2018-05-02 20:54] LABS: AMPHETAMINE SCREEN,URINE NEGATIVE (NEGATIVE); BENZODIAZEPINES SCREEN, URINE POSITIVE (NEGATIVE); COCAINE SCREEN URINE NEGATIVE (NEGATIVE); METHAMPHETAMINES SCREEN, URINE NEGATIVE (NEGATIVE); OPIATE SCREEN, URINE NEGATIVE (NEGATIVE)
[2018-05-02 20:55] LABS: METHADONE SCREEN, URINE NEGATIVE (NEGATIVE); OXYCODONE SCREEN, URINE POSITIVE (NEGATIVE); PROPOXYPHENE SCREEN, URINE NEGATIVE (NEGATIVE); TRICYCLIC ANTIDEPRESSANT,URINE NEGATIVE (NEGATIVE)
[2018-05-02] MEDS ORDERED: SODIUM CHLORIDE 0.9% 1,000 ML IV ONE (21:48)
--- NOTE | 2018-05-02 21:53 | ED Physician Documentation ---
History of Present Illness - Stated complaint Stated Complaint: CONFUSION - Chief complaint Chief Complaint: Neuro - History obtained from History obtained from: Patient - History of Present Illness Timing: Today - Additonal information Additional information: 58-year-old male with a history of lung cancer metastasis to the brain who is status post gamma knife and chemo who is now on pembrolizumab has recently been admitted in the hospital for hyponatremia and weakness. His sodium came up his strength improved he returned home for several days and today he feels confused and weak. He states he is having a hard time understanding why this is. He does have a chronic cough he is a smoker he states he has had some alcohol but not a lot. He is come to the emergency department today with chief complaint of generalized weakness and confusion. Review of Systems Constitutional: reports: Fatigue, Sweats. denies: Fever Eyes: reports: Decreased vision (cataracts) Ears: denies: Ear pain Nose: reports: Congestion Throat: denies: Sore throat Cardiac: reports: Pedal edema. denies: Chest pain / pressure, Palpitations Respiratory: reports: Dyspnea, Cough GI: denies: Abdominal Pain, Nausea, Vomiting : denies: Dysuria, Frequency Skin: denies: Rash Musculoskeletal: reports: Neck pain, Back pain Neurologic: reports: Generalized weakness, Confused. denies: Focal weakness, Numbness, Difficulty speaking, Headache, Head injury, LOC PD PAST MEDICAL HISTORY - Past Medical History Cardiovascular: Hypertension, Coronary artery disease, Peripheral Vascular Disease Respiratory: COPD, Shortness of breath, Other Neuro: Seizure disorder, Other Endocrine/Autoimmune: None GI: GERD, Chronic constipation, Diverticulitis : Benign prostate hypertrophy, Incontinence, Nocturia, Frequency HEENT: Chronic vision loss Psych: Anxiety Musculoskeletal: Chronic back pain, Other Derm: None - Past Surgical History Past Surgical History: Yes Ortho: Amputation Cardiovascular: Cardiac catheterization Neuro: Craniotomy - Present Medications Home Medications: Ambulatory Orders Medication Instructions Recorded Confirmed Lorazepam [Ativan] 1 mg PO Q8HR PRN 09/23/15 04/26/18 Tamsulosin [Flomax] 0.4 mg PO DAILY 06/29/16 04/26/18 Esomeprazole Magnesium [Nexium 20 mg PO DAILY 08/10/16 04/26/18 24Hr] Oxycodone HCl [Oxycontin] 20 mg PO TID 07/04/17 04/26/18 Oxycodone HCl 10 - 20 mg PO Q4HR PRN MDD 8 tabs 07/26/17 04/26/18 Vitamin B Complex 1 tab PO DAILY 07/26/17 04/26/18 Sennosides [Senna Lax] 17.2 mg PO TID 08/10/17 04/26/18 Lidocaine Ointment 5% [Xylocaine 1 appful TOP PRN PRN 08/20/17 04/26/18 Ointment 5%] Melatonin 3 mg PO DAILY PM 08/29/17 04/26/18 Magnesium Oxide [Magnesium] 400 mg PO DAILY 08/30/17 04/26/18 Potassium Chloride [K-Dur] 40 meq PO BID MDD extra with 08/30/17 04/26/18 diuretic Gabapentin [Neurontin] 800 mg PO TID 09/27/17 04/26/18 Levetiracetam [Keppra] 500 mg PO BID #30 tablet 11/23/17 04/26/18 Loperamide [Imodium] 2 mg PO Q4HR PRN 12/20/17 04/26/18 Polyethylene Glycol 3350 [Miralax] 17 gm PO DAILY PRN 02/13/18 04/26/18 Ondansetron Odt [Zofran Odt] 4 mg TL Q6H PRN #15 tablet 03/19/18 04/26/18 Torsemide 20 mg PO BID 04/26/18 04/26/18 Prednisone 10 mg PO DAILY #7 tab.ds.pk 04/27/18 - Allergies Allergies/Adverse Reactions: Allergies Allergy/AdvReac Type Severity Reaction Status Date / Time BRONWYN Inhibitors Allergy Emesis Verified 04/15/18 23:38 amoxicillin [From Augmentin] Allergy Emesis Verified 04/15/18 23:38 clavulanic acid Allergy Emesis Verified 04/15/18 23:38 [From Augmentin] lisinopril Allergy "THROAT Verified 04/15/18 23:38 SWELLING" - Social History Does the pt smoke?: Yes Smoking Status: Current every day smoker Does the pt drink ETOH?: Yes Does the pt have substance abuse?: No - Immunizations Immunizations are current?: Yes - POLST Patient has POLST: No POLST Status: Full Code PD ED PE NORMAL - Vitals Vital signs reviewed: Yes (normal ) - General General: No acute distress, Well developed/nourished, Other (awakens easily lays with the head tilted forward speaks slowly and has delay in execution of motor commands. ) - HEENT HEENT: Atraumatic, PERRL, EOMI - Neck Neck: Supple, no meningeal sign, No bony TTP - Cardiac Cardiac: Other (tachycardic with 2/6 holosystolic murmer. ) - Respiratory Respiratory: No respiratory distress, Other (diminished breath sounds right base and mild rhonchi in left base. ) - Abdomen Abdomen: Soft, Non tender - Back Back: No CVA TTP, No spinal TTP - Derm Derm: Normal color, Warm and dry - Extremities Extremities: Other (There is marked pitting edema of both lower ext. Seems less than last week. ) Results - Vitals Vitals: Vital Signs - 24 hr 05/02/18 05/02/18 05/02/18 19:24 21:35 23:40 Temperature 36.9 C Heart Rate 97 108 H 99 Respiratory 18 14 15 Rate Blood Pressure 131/77 H 130/73 111/66 O2 Saturation 92 90 L 90 L Oxygen O2 Source Room air - Labs Labs: Laboratory Tests 05/02/18 05/02/18 05/02/18 19:50 19:50 20:37 WBC 8.2 RBC 3.47 L Hgb 11.1 L Hct 32.5 L MCV 93.7 MCH 32.1 H MCHC 34.3 RDW 15.0 Plt Count 151 MPV 6.5 L Neut # (Auto) 5.9 Lymph # (Auto) 0.9 L Dyer # (Auto) 1.1 H Eos # (Auto) 0.1 Baso # (Auto) 0.1 Absolute Nucleated RBC 0.00 Nucleated RBC % 0.0 Sodium 128 L Potassium 4.6 Chloride 95 L Carbon Dioxide 24 Anion Gap 9.0 BUN 18 Creatinine 1.2 Estimated GFR (MDRD) 63 L Glucose 99 Calcium 8.9 Total Bilirubin 1.7 H AST 137 H ALT 28 Alkaline Phosphatase 99 Total Protein 7.2 Albumin 4.1 Globulin 3.1 Albumin/Globulin Ratio 1.3 Lipase 32 Urine Color YELLOW Urine Clarity CLEAR Urine pH 5.5 Ur Specific Gordon 1.015 Urine Protein NEGATIVE Urine Glucose (UA) NEGATIVE Urine Ketones NEGATIVE Urine Occult Blood SMALL H Urine Nitrite NEGATIVE Urine Bilirubin NEGATIVE Urine Urobilinogen 0.2 (NORMAL) Ur Leukocyte Esterase NEGATIVE Urine RBC 0-5 Urine WBC 0-3 Ur Squamous Epith Cells RARE Squamous Urine Bacteria None Seen Ur Microscopic Review INDICATED Urine Culture Comments NOT INDICATED Salicylates < 6.0 Urine Opiates Screen NEGATIVE Ur Oxycodone Screen POSITIVE H Urine Methadone Screen NEGATIVE Ur Propoxyphene Screen NEGATIVE Acetaminophen < 10 L Ur Barbiturates Screen NEGATIVE Ur Tricyclics Screen NEGATIVE Ur Phencyclidine Scrn NEGATIVE Ur Amphetamine Screen NEGATIVE U Methamphetamines Scrn NEGATIVE U Benzodiazepines Scrn POSITIVE H Urine Cocaine Screen NEGATIVE U Cannabinoids Screen NEGATIVE Ethyl Alcohol < 5.0 - Rads (name of study) 2 view chest Radiology: Prelim report reviewed (Impression: Small right pleural effusion appears unchanged. Mild right lung airspace disease more moderate at the right base, unchanged. Right mid upper posterior mass concerning for lung malignancy is again noted. New mild diffuse left lung airspace disease.), EMP read indepedently, See rad report Procedures - IVC sono (time) 2129 Bedside IVC sono: IVC measures (cm) (1.55), IVC collapsed c insp (cm) (complete), Dehydration (est <1 liter dificit) PD MEDICAL DECISION MAKING - ED course Complexity details: reviewed old records, reviewed results, re-evaluated patient, considered differential, d/w patient ED course: 58-year-old male with history of metastatic lung cancer who is on palliative treatment with pembrolizumab has recently been admitted to the hospital with hyponatremia and weakness he returned home in 5 days later he has complained of confusion and weakness. On workup today noted is some rhonchi in the left lung base and a chest x-ray demonstrating what appears to be some increased left lung disease in comparison to a chest x-ray done 6 days ago. He does have a chronic right lower effusion and mass. This appears unchanged from recent. He has had a scan of his head recently. He is found to be mildly dehydrated today and a liter of saline is administered he does not feel well following this. I suspect the findings on the CXR represent a developing infection or possibly pneumonitis related to the pembrolizumab. I have asked the hospitalist to hospitalize the patient for treatment. Departure - Departure Disposition: 66 [facility] DC/Xfer Clinical Impression: Dehydration, Pneumonitis Pneumonia Qualifiers: Pneumonia type: due to unspecified organism Laterality: left Lung location: lower lobe of lung Qualified Code(s): J18.1 - Lobar pneumonia, unspecified organism
--- NOTE | 2018-05-02 23:26 | XRAY Report ---
Reason: persistent weakness Procedure Date: 05/02/2018 Accession Number: [id number] / [id number] Procedure: XR - Chest 2 View X-Ray CPT Code: 11648 FULL RESULT: EXAM: CHEST RADIOGRAPHY EXAM DATE: 05/02/2018 10:35 PM. CLINICAL HISTORY: Persistent weakness. COMPARISON: CHEST 1 VIEW 04/26/2018 2:52 AM CHEST W/ 03/26/2018 1:54 PM. TECHNIQUE: 2 views. FINDINGS: Left Port-A-Cath central line with the tip at the distal supra vena cava, unchanged. Small right pleural effusion appears unchanged. Mild right lung airspace disease more moderate at the right base, unchanged. Right mid upper posterior mass concerning for lung malignancy is again noted. New mild diffuse left lung airspace disease. Normal heart size. IMPRESSION: Small right pleural effusion appears unchanged. Mild right lung airspace disease more moderate at the right base, unchanged. Right mid upper posterior mass concerning for lung malignancy is again noted. New mild diffuse left lung airspace disease. RADIA
[2018-05-03] MEDS ORDERED: TEMAZEPAM 15 MG CAPSULE PO PRN (00:17)
[2018-05-03] MEDS ORDERED: HYDROcod/ACETAM 5/325 MG TABLET PO PRN (00:17)
[2018-05-03] MEDS ORDERED: PROMETHAZINE 25 MG/1 ML VIAL IM PRN (00:17)
[2018-05-03] MEDS ORDERED: ACETAMINOPHEN 325 MG TABLET PO PRN (00:17)
[2018-05-03] MEDS ORDERED: SODIUM CHLORIDE FLUSH 0.9% 10 ML SYRINGE IVP PRN (00:17)
[2018-05-03] MEDS ORDERED: ONDANSETRON 4 MG/2 ML VIAL IVP PRN (00:17)
[2018-05-03] MEDS ORDERED: POLYETHYLENE GLYCOL 3350 17 GM PACKET PO PRN (00:19)
[2018-05-03] MEDS ORDERED: NON FORMULARY MED (Lorazepam [Ativan] 1 MG) PO PRN (00:19)
[2018-05-03] MEDS ORDERED: NON FORMULARY MED (Melatonin [Melatonin] 3 MG) PO SCH (00:30)
[2018-05-03] MEDS ORDERED: LORazepam 1 MG TABLET PO PRN (00:59)
--- NOTE | 2018-05-03 01:15 | HISTORY & PHYSICAL EXAMINATION ---
Chief Complaint - Chief Complaint Chief Complaint: Weakness History of Present Illness - Admitted From Admitted From:: ED - History Obtained From Records Reviewed: ED and previous admit History obtained from: Pt and Dr Carrillo, ED physician Exam Limitations: None - History of Present Illness HPI Comment/Other: Patient is a 58-year-old male with a past medical history significant for Lung cancer with metastatic lesions to the brain who was recently discharged from this facility having been admitted with severe hyponatremia and weakness who is now presenting with weakness and transient altered mental status noticed by his son who is at is his caregiver. Patient is living with a roommate in an apartment after the last discharge, and his son who came by to check on him noticed that he was saying things that did not make sense and seemed to be confused and he was taken to the emergency room. He was seen by Dr. Carrillo, the emergency room physician who has seen him several times in the past who noticed a change from his baseline. He seems to be improved since in the emergency room but not back to his baseline status. Some left basilar crackles were heard on exam and the patient ended up having a chest x-ray suggestive of a possible pneumonitis versus infection. He has recently been treated with pembrolizumab for his metastatic lung cancer for palliative treatments and apparently pneumonitis as a possible complication of this treatment.Patient is undergoing palliative care and is followed by palliati ve care team. Patient's lab work was otherwise generally unremarkable, and we were asked to admit the patient for observation and discharge planning to ensure safe discharge given his decrease in mobility. History - Past Medical History Cardiovascular: reports: Hypertension, Coronary artery disease, Peripheral Vascular Disease Respiratory: reports: COPD, Shortness of breath, Other Neuro: reports: Seizure disorder, Other (Lung cancer with metastatic brain lesions status post craniotomy) Endocrine/Autoimmune: reports: None GI: reports: GERD, Chronic constipation, Diverticulitis : reports: Benign prostate hypertrophy, Incontinence, Nocturia, Frequency HEENT: reports: Chronic vision loss Psych: reports: Anxiety Musculoskeletal: reports: Chronic back pain, Other Derm: reports: None MRSA Hx?: No - Past Surgical History Ortho: reports: Amputation Cardiovascular: reports: Cardiac catheterization Neuro: reports: Craniotomy, Gamma knife - Family & Social History Family History: Mother: , Cancer, Diabetes, Type 2, Father: , Cancer, Sister: Alive and Well, Cancer, Other family: Alive and Well Social History Notes: The patient lives in [place], [place] with a roommate whom he has recently met. The patient was born in [place] at [facility]. His father was in the but the patient himself was not in the . The patient has 3 children and is . He has a sister who lives on [facility]. The patient continues to smoke almost 1 pack/day and has been doing so for about 40 years. He also drinks 324 ounce beers and 3 shots of vodka daily. He denies any illicit drug use. - Substance History Use: Uses substance without health or social issues: Tobacco, Alcohol - POLST Patient has POLST: No POLST Status: Patient is to resuscitate but DO NOT INTUBATE Meds/Allgy - Home Medications Home Medications: Ambulatory Orders Medication Instructions Recorded Confirmed Lorazepam [Ativan] 1 mg PO Q8HR PRN 09/23/15 04/26/18 Tamsulosin [Flomax] 0.4 mg PO DAILY 06/29/16 04/26/18 Esomeprazole Magnesium [Nexium 20 mg PO DAILY 08/10/16 04/26/18 24Hr] Oxycodone HCl [Oxycontin] 20 mg PO TID 07/04/17 04/26/18 Oxycodone HCl 10 - 20 mg PO Q4HR PRN MDD 8 tabs 07/26/17 04/26/18 Vitamin B Complex 1 tab PO DAILY 07/26/17 04/26/18 Sennosides [Senna Lax] 17.2 mg PO TID 08/10/17 04/26/18 Lidocaine Ointment 5% [Xylocaine 1 appful TOP PRN PRN 08/20/17 04/26/18 Ointment 5%] Melatonin 3 mg PO DAILY PM 08/29/17 04/26/18 Magnesium Oxide [Magnesium] 400 mg PO DAILY 08/30/17 04/26/18 Potassium Chloride [K-Dur] 40 meq PO BID MDD extra with 08/30/17 04/26/18 diuretic Gabapentin [Neurontin] 800 mg PO TID 09/27/17 04/26/18 Levetiracetam [Keppra] 500 mg PO BID #30 tablet 11/23/17 04/26/18 Loperamide [Imodium] 2 mg PO Q4HR PRN 12/20/17 04/26/18 Polyethylene Glycol 3350 [Miralax] 17 gm PO DAILY PRN 02/13/18 04/26/18 Ondansetron Odt [Zofran Odt] 4 mg TL Q6H PRN #15 tablet 03/19/18 04/26/18 Torsemide 20 mg PO BID 04/26/18 04/26/18 Prednisone 10 mg PO DAILY #7 tab.ds.pk 04/27/18 - Allergies Allergies/Adverse Reactions: Allergies Allergy/AdvReac Type Severity Reaction Status Date / Time BRONWYN Inhibitors Allergy Emesis Verified 04/15/18 23:38 amoxicillin [From Augmentin] Allergy Emesis Verified 04/15/18 23:38 clavulanic acid Allergy Emesis Verified 04/15/18 23:38 [From Augmentin] lisinopril Allergy "THROAT Verified 04/15/18 23:38 SWELLING" Review of Systems - Constitutional Constitutional: reports: Fatigue, Weakness - Respiratory Respiratory: reports: Cough, Sputum production, SOB at rest - Neurological Neurological: reports: Pre-existing deficit, Abnormal gait, Other (Neuropathic pain) Prior Level of Functionality: Relatively independent, ambulatory Exam - Vital Signs Reviewed Vital Signs: Yes Vital Signs: Vital Signs x48h Temp Pulse Resp BP Pulse Ox 05/02/18 23:40 99 15 111/66 90 L 05/02/18 21:35 108 H 14 130/73 90 L 05/02/18 19:24 36.9 C 97 18 131/77 H 92 - Physical Exam General Appearance: positive: No acute distress Eyes Bilateral: positive: Normal inspection ENT: positive: ENT inspection nml Neck: positive: Nml inspection Respiratory: positive: Rhonchi. negative: Wheezes, Rales Cardiovascular: positive: Regular rate & rhythm, No murmur, No gallop Peripheral Pulses: positive: 2+ Abdomen: positive: Non-tender, No organomegaly, Nml bowel sounds Extremities: positive: Pedal edema Neurologic/Psychiatric: positive: Oriented x3, CN's nml (2-12), Mood/affect nml, Weakness Conclusion/Plan - Problem List (1) Pneumonitis Conclusion/Plan: Possibly related to pembrolizumab. Although this is not a definitive diagnosis and may benefit from a CT scan pending clinical course. There is no evidence of infection with respect to fever, elevated white blood cell counts, so at this point will hold off on antibiotics. If not improved with oral prednisone 60 mg daily, consider further diagnostic imaging versus addition of antibiotics if there is development of signs of infection. (2) Generalized weakness Conclusion/Plan: This is acute on chronic. Very similar to his most recent admission. Metabolically he seems better with no significant hyponatremia. It is unclear how much of this is going to really improve and the patient may benefit from a physical therapy evaluation is still weak in the morning and reconsideration of the discharge plan to home alone. (3) History of lung cancer Conclusion/Plan: Continue palliative care plan. Possible new lesion on chest x-ray. Will defer to outpatient treatment with oncologist already established. (4) Hyponatremia Conclusion/Plan: Patient's current sodium level is near his baseline. Is not demonstrating any significant signs of acute hyponatremia. We will continue to monitor. (5) Peripheral neuropathy Conclusion/Plan: Patient asking to continue the topical lidocaine. I think this is appropriate however he had previously been on 800 mg of gabapentin 3 times daily and this may be to have a dose given the change in mental status and gait. I will decrease this to 600 mg 3 times daily and see how he does. Qualifiers: Peripheral neuropathy type: polyneuropathy, other Qualified Code(s): G62.89 - Other specified polyneuropathies (6) Thoracic back pain Conclusion/Plan: Patient has chronic back pain with chronic narcotics, high doses. We will decrease the as needed but maintain his scheduled long-acting opiate to avoid withdrawal. May be worth trying to taper down slightly in the outpatient to see if this helps with preventing confusion and gait disturbances, weakness. (7) Tobacco use disorder, continuous Conclusion/Plan: Patient continues to smoke, counseled to quit. Will provide nicotine patch. - Lab Results Fish Bones: 05/02/18 19:50 05/02/18 19:50 - Diagnostic Imaging Results Diagnostic Imaging Results: positive: Final report reviewed, Read independently Core Measures - Anticipated LOS I expect patient to be DC'd or transferred within 96 hours.: Yes - DVT/VTE - Prophylaxis VTE/DVT Device ordered at admit?: Yes
[2018-05-03] MEDS: SODIUM CHLORIDE FLUSH 0.9% 10 ML SYRINGE IVP SCH ×3 (02:16→10:49)
[2018-05-03] MEDS: LIDOCAINE OINTMENT 5% 35.44 GM TUBE TOP SCH ×3 (02:16→14:06)
[2018-05-03] MEDS ORDERED: OXYCODONE HCL 20 MG PO SCH (06:00)
[2018-05-03] MEDS: oxyCODONE ER 10 MG TABLET PO SCH ×3 (06:57→14:18)
[2018-05-03] MEDS: GABAPENTIN 300 MG CAPSULE PO SCH ×3 (06:57→14:18)
[2018-05-03] MEDS ORDERED: predniSONE 20 MG TABLET PO SCH (08:00)
[2018-05-03] MEDS ORDERED: MAGNESIUM OXIDE 400 MG TABLET PO SCH (08:00)
[2018-05-03] MEDS: NICOTINE 14 MG PATCH TOP SCH ×2 (08:23→08:29)
[2018-05-03] MEDS ORDERED: VITAMIN B COMPLEX PO SCH (09:00)
[2018-05-03] MEDS ORDERED: POTASSIUM CHLORIDE 20 MEQ TABLET PO SCH (09:00)
[2018-05-03] MEDS ORDERED: MAGNESIUM OXIDE 400 MG PO SCH (09:00)
[2018-05-03] MEDS ORDERED: TAMSULOSIN 0.4 MG CAPSULE PO SCH (09:00)
[2018-05-03] MEDS ORDERED: TORSEMIDE 20 MG TABLET PO SCH (09:00)
[2018-05-03] MEDS ORDERED: PREDNISONE 40 MG PO SCH (09:00)
[2018-05-03] MEDS ORDERED: levETIRAcetam 250 MG TABLET PO SCH (09:00)
[2018-05-03] MEDS ORDERED: SENNA 8.6 MG TABLET PO SCH (09:00)
[2018-05-03] MEDS ORDERED: POLYETHYLENE GLYCOL 3350 17 GM PACKET PO SCH (09:00)
[2018-05-03] MEDS ORDERED: LEVETIRACETAM 500 MG PO SCH (09:00)
--- NOTE | 2018-05-03 11:18 | Discharge Plan ---
Discharge Plan Disposition: 01 Home, Self Care Condition: Good Prescriptions: Budesonide/Formoterol Fumarate [Symbicort 160-4.5 Mcg Inhaler] 10.2 gm IH BID #1 hfa.aer.ad Ipratropium/Albuterol [Duoneb] 3 ml INH Q4H PRN #120 neb PRN Reason: Shortness Of Air/Wheezing Nebulizer and Compressor [Easy Air Compressor Nebulizer] 1 each MC QID #1 each Nicotine 14 mg Patch [Nicoderm] 1 each TOP Q24H #7 patch Nicotine 7 mg Patch [Nicoderm] 1 each TOP Q24H #7 patch Prednisone 10 mg PO DAILY #14 tab.ds.pk Saccharomyces Boulardii [Florastor] 250 mg PO BID #60 capsule Sulfamethox/Trimeth 800/160 [Bactrim Ds] 1 each PO BID #14 tablet Diet: Regular Activity Restrictions: No Restrictions Shower Restrictions: No Weight Bearing: Full Weight Additional Instructions or Follow Up instructions: You were admitted for a short stay due to your requirement of oxygen and persistent shortness of breath. This was caused by either COPD or pneumonitis, so a short course of antibiotics will be needed along with a steroid taper. To help prevent this type of episode, I have prescribed a long acting steroid inhaler (to be taken twice daily), and nicotine patches, since smoking is irrita ting to your respiratory tract. I have also sent an order for a nebulizer, with duo-nebs that may be easier to use than an inhaler, as needed. A call was made to update Kari Thornton, Palliative care. Please continue to see your out patient providers/primary care within one week. No Smoking: If you smoke, Please STOP! Call for help. Follow-up with: Yessica Patel ARNP [Primary Care Provider] -
--- NOTE | 2018-05-03 11:37 | DISCHARGE SUMMARY ---
Discharge Summary Admit Date: 05/03/18 Discharge Date: 05/03/18 Discharging Provider: RAMAN Henriquez Primary Care Provider: Yessica Patel Code Status: Do Not Attempt Resuscitation Condition at Discharge: Good Discharge Disposition: 01 Home, Self Care - DIAGNOSES Admission Diagnoses: Pneumonia, unspecified organism (J18.9) Weakness (R53.1) Personal history of malignant neoplasm of bronchus and lung (Z85.118) Hypo-osmolality and hyponatremia (E87.1) Polyneuropathy, unspecified (G62.9) Pain in thoracic spine (M54.6) Tobacco use (Z72.0) Discharge Diagnoses with Status of Each Condition: Acute pneumonitis (J18.9) new on this admit, short course of antibiotic and steroid taper to continue at home. COPD exacerbation (J44.1) chronic COPD, LABA inhaler BID sent to pharmacy. Continue O/P therapies. Primary malignant neoplasm of lung with metastasis to brain (C34.90) chronic, set up with Palliative care, DNR status. Weakness (R53.1) progressive, ongoing, stable. Hypo-osmolality and hyponatremia (E87.1) chronic, stable. Polyneuropathy, unspecified (G62.9) chronic, stable. Pain in thoracic spine (M54.6) chronic, stable. Tobacco use (Z72.0)chronic, stable. Patient encouraged to stop, nicotine patches sent. Alcohol dependence (F10.20) chronic, stable. Multiple open wounds of lower extremity (S81.273G) chronic, wound consult not completed in the hospital due to staffing/scheduling. Would benefit out patient with a wound consult. - HPI History of Present Illness: Patient is a 58-year-old male with a past medical history significant for Lung cancer with metastatic lesions to the brain who was recently discharged from this facility having been admitted with severe hyponatremia and weakness who is now presenting with weakness and transient altered mental status noticed by his son who is at is his caregiver. Patient is living with a roommate in an apartment after the last discharge, and his son who came by to check on him noticed that he was saying things that did not make sense and seemed to be confused and he was taken to the emergency room. He was seen by Dr. Carrillo, the emergency room physician who has seen him several times in the past who noticed a change from his baseline. He seems to be improved since in the emergency room but not back to his baseline status. Some left basilar crackles were heard on exam and the patient ended up having a chest x-ray suggestive of a possible pneumonitis versus infection. He has recently been treated with pembrolizumab for his metastatic lung cancer for palliative treatments and apparently pneumonitis as a possible complication of this treatment.Patient is undergoing palliative care [facility] Patient's lab work was otherwise generally unremarkable, and we were asked to a dmit the patient for observation and discharge planning to ensure safe discharge given his decrease in mobility. - HOSPITAL COURSE Hospital Course: The patient was kept as a same day observation as he required oxygen and had ongoing shortness of breath concerning for COPD exacerbation/pneumonitis. He was very anxious to be on his way back home where he is closely followed by Palliative care. He was prescribed nicotine patches in hopes that he will quit smoking to limit these exacerbations. New prescriptions for a short course of Bactrim, steroid taper, a LABA inhaler, duo nebs, a nebulizer device and a probiotic. He was medically stable, and his brother transported him home via private car. He had hyponatremia while here, but on 04/25/18 his sodium was down to 118 and is now 128. His mental status was not altered, and this condition is most likely due to his chronic alcohol use, dehydration, and poor heart function. A wound care consult was made for his BLE/feet wounds, but this was not possible due to scheduling, so this will need to be deferred to out patient consult. - ALLERGIES Allergies/Adverse Reactions: Allergies Allergy/AdvReac Type Severity Reaction Status Date / Time BRONWYN Inhibitors Allergy Emesis Verified 04/15/18 23:38 amoxicillin [From Augmentin] Allergy Emesis Verified 04/15/18 23:38 clavulanic acid Allergy Emesis Verified 04/15/18 23:38 [From Augmentin] lisinopril Allergy "THROAT Verified 04/15/18 23:38 SWELLING" - MEDICATIONS Home Medications: Ambulatory Orders Medication Instructions Recorded Confirmed Lorazepam [Ativan] 1 mg PO Q8HR PRN 09/23/15 05/03/18 Tamsulosin [Flomax] 0.4 mg PO DAILY 06/29/16 05/03/18 Oxycodone HCl 10 - 20 mg PO Q4HR PRN MDD 8 tabs 07/26/17 05/03/18 Sennosides [Senna Lax] 17.2 mg PO TID 08/10/17 05/03/18 Lidocaine Ointment 5% [Xylocaine 1 appful TOP PRN PRN 08/20/17 05/03/18 Ointment 5%] Potassium Chloride [K-Dur] 40 meq PO BID 08/30/17 05/03/18 Gabapentin [Neurontin] 800 mg PO TID 09/27/17 05/03/18 Levetiracetam [Keppra] 500 mg PO BID #30 tablet 11/23/17 05/03/18 Ondansetron Odt [Zofran Odt] 4 mg TL Q6H PRN #15 tablet 03/19/18 05/03/18 Torsemide 20 mg PO BID 04/26/18 05/03/18 Budesonide/Formoterol Fumarate 10.2 gm IH BID #1 hfa.aer.ad 05/03/18 [Symbicort 160-4.5 Mcg Inhaler] Ipratropium/Albuterol [Duoneb] 3 ml INH Q4H PRN #120 neb 05/03/18 Nebulizer and Compressor [Easy Air 1 each MC QID #1 each 05/03/18 Compressor Nebulizer] Nicotine 14 mg Patch [Nicoderm] 1 each TOP Q24H #7 patch 05/03/18 Nicotine 7 mg Patch [Nicoderm] 1 each TOP Q24H #7 patch 05/03/18 Oxycodone HCl [Oxycodone HCl ER] 20 mg PO TID 05/03/18 05/03/18 Pantoprazole Sodium [Protonix] 40 mg PO QDAC 05/03/18 05/03/18 Prednisone 10 mg PO DAILY #14 tab.ds.pk 05/03/18 Saccharomyces Boulardii [Florastor] 250 mg PO BID #60 capsule 05/03/18 Sulfamethox/Trimeth 800/160 1 each PO BID #14 tablet 05/03/18 [Bactrim Ds] - PHYSICAL EXAM AT DISCHARGE General Appearance: positive: No acute distress, Alert Eyes Bilateral: positive: PERRL, No lid inflammation ENT: positive: Pharynx nml, No signs of dehydration Neck: positive: Thyroid nml, No JVD, Trachea midline Respiratory: positive: Chest non-tender, No respiratory distress, Rhonchi Cardiovascular: positive: No gallop, Irregularly irregular, Systolic murmur Peripheral Pulses: positive: 1+ Abdomen: positive: Non-tender, Nml bowel sounds, Other (rounded, soft) Back: positive: Nml inspection Skin: positive: No rash, Warm, Dry, Cyanosis, Pallor Extremities: positive: Pedal edema (gross edema, BLE), Joint swelling Neurologic/Psychiatric: positive: Oriented x3, CN's nml (2-12), Motor nml, Weakness, Depressed mood/affect Reflexes: Bicep (R): 2+, Bicep (L): 2+ - LABS Result Diagrams: 05/02/18 19:50 05/02/18 19:50 - DIAGNOSTIC IMAGING Diagnostic Imaging Results: Final report reviewed Diagnostic Imaging Results Comments: EXAM: CHEST RADIOGRAPHY EXAM DATE: 05/02/2018 10:35 PM. IMPRESSION: Small right pleural effusion appears unchanged. Mild right lung airspace disease more moderate at the right base, unchanged. Right mid upper posterior mass concerning for lung malignancy is again noted. New mild diffuse left lung airspace disease. - FOLLOW UP Follow Up: Disposition: Home, Self Care Prescriptions: Budesonide/Formoterol Fumarate [Symbicort 160-4.5 Mcg Inhaler] 10.2 gm IH BID #1 hfa.aer.ad Ipratropium/Albuterol [Duoneb] 3 ml INH Q4H PRN #120 neb PRN Reason: Shortness Of Air/Wheezing Nebulizer and Compressor [Easy Air Compressor Nebulizer] 1 each MC QID #1 each Nicotine 14 mg Patch [Nicoderm] 1 each TOP Q24H #7 patch Nicotine 7 mg Patch [Nicoderm] 1 each TOP Q24H #7 patch Prednisone 10 mg PO DAILY #14 tab.ds.pk Saccharomyces Boulardii [Florastor] 250 mg PO BID #60 capsule Sulfamethox/Trimeth 800/160 [Bactrim Ds] 1 each PO BID #14 tablet Additional Instructions or Follow Up instructions: You were admitted for a short stay due to your requirement of oxygen and persistent shortness of breath. This was caused by either COPD or pneumonitis, so a short course of antibiotics will be needed along with a steroid taper. To help prevent this type of episode, I have prescribed a long acting steroid inhaler (to be taken twice daily), and nicotine patches, since smoking is irritating to your respiratory tract. I have also sent an order for a nebulizer, with duo-nebs that may be easier to use than an inhaler, as needed. A call was made to update Kari Thornton, Palliative care. Please continue to see your out patient providers/primary care within one week. - TIME SPENT Time Spent in Discharge (Minutes): 55
[2018-05-03 11:42] VITALS: BP 146/90
== END 2018-05-03 14:15 | disposition home or self-care (01) ==
LOC: ED 19:16 → MS2 05-03 00:17
PROVIDERS: ADMIT Family Medicine Sports Medicine; ATTEND Nurse Practitioner
DX: J18.9 Pneumonia, unspecified organism (principal); J44.0 Chronic obstructive pulmonary disease with (acute) lower respiratory infection; J44.1 Chronic obstructive pulmonary disease with (acute) exacerbation; C34.90 Malignant neoplasm of unspecified part of unspecified bronchus or lung; C79.31 Secondary malignant neoplasm of brain; Z51.5 Encounter for palliative care; Z66 Do not resuscitate; E87.1 Hypo-osmolality and hyponatremia; G62.9 Polyneuropathy, unspecified; F17.210 Nicotine dependence, cigarettes, uncomplicated; M54.6 Pain in thoracic spine; F10.20 Alcohol dependence, uncomplicated; S81.809A Unspecified open wound, unspecified lower leg, initial encounter; I10 Essential (primary) hypertension; I25.10 Atherosclerotic heart disease of native coronary artery without angina pectoris; I73.9 Peripheral vascular disease, unspecified; G40.909 Epilepsy, unspecified, not intractable, without status epilepticus; F41.9 Anxiety disorder, unspecified; G89.29 Other chronic pain; M54.9 Dorsalgia, unspecified; K21.9 Gastro-esophageal reflux disease without esophagitis; K59.09 Other constipation; N40.1 Benign prostatic hyperplasia with lower urinary tract symptoms; N39.45 Continuous leakage; R35.0 Frequency of micturition; R35.1 Nocturia; Z79.891 Long term (current) use of opiate analgesic; Z79.51 Long term (current) use of inhaled steroids; Z79.52 Long term (current) use of systemic steroids; Z79.899 Other long term (current) drug therapy
CPT/HCPCS: 36415; 71046; 80053; 80306; 80307; 80320; 80329; 81001; 83690; 85025; 96360; 99284; A9270; G0378; J7512; J8499; 81003; 87086

== ENCOUNTER 2018-05-08 14:00 | Outpatient (CLI) | payer MEDICAID ==
--- NOTE | 2018-05-09 05:04 | CONSULTATION NOTE ---
Palliative Care Follow Up - Referral Referring Provider: Dr. Jodee Castillo Time of Visit: 05/08/2018 WED [id number] Referral setting: Home (Is a taxing considerable effort for the patient to leave the home secondary to fatigue and chronic pain. Home visit also arranged to verify medication adherence) Referral Reason: Lung Cancer with Brain mets/Pneumonia - Information Sources Records reviewed: Previous records reviewed History/Review of Systems obtained from: Patient Exam limitations: Clinical condition (patient with some STM issues; mental status improved today) - History of Present Illness Update Brief HPI Update: This is a feisty 58-year-old gentleman with adenocarcinoma of the lung originally diagnosed in 2013, with known brain metastases status post CyberKnife at [facility] 02/2017. He had been receiving Pembrolizumab, now on hold pending outcome of brain MRI. This is been complicated as patient was unable to lay flat for MRI at [facility], unfortunately in the meantime he gotten a Port-A-Cath. So receiving a alternative MRI has been pushed out to the required 8 weeks. Currently he is scheduled on 05/27 in [place], for stand up MRI. In the meantime the last few weeks he has had multiple encounters with the emergency room department and admits related to his hyponatremia, increased confusion, and now most recently on 05/03 for diagnosis of pneumonia. He has been on antibiotics and steroids, and actually is looking fairly good, his shortness of breath is improved, unfortunately he has not received his nebulizer, continues to have intermittent wheezing. Patient presents with multiple complex issues regarding his pain management, which palliative care has been overseeing. Patient has severe peripheral neuropathy, which actually had been escalating, related to his increased swelling, edema, exacerbated by his home situation with his feet down all the time. There is also been some concern regarding his current immunotherapy adding to as a side effect, to his pain syndrome. This is somewhat confirmed as his pain has improved the further out from his treatments he has gotten. Patient has found topical, that includes CBD, that has added to his relief, he has been able to titrate back his gabapentin to 1200 mg in the a.m. and 800 mg in the p.m. This is helped with his underlying altered mental status and confusion as well. In his new living situation he has been able to elevate his feet, his swelling is much better controlled, but he still struggles with intermittent wound issues. His other area of pain as upper neck and shoulder bilateral, does have pain that radiates to the chest and rib area, has a constant ache in his right "lung". He has been on OxyContin 20 mg 3 times daily, with oxycodone 10- 20 mg every 4 hours with a maximum of 8 tabs. He actually has been able to stay within his allotted amount of around 6-7 tabs a day. Social History - Living Situation Living arrangement: At home Living Situation: Other (has roomate; but is not involved in patient care) Support System: [facility] [place], does have a roommate but not involved in care. His son Alonso has been trying to assist him with appointments, follow-through, medications this is been somewhat sporadic in nature. Patient does have a few friends that he calls upon, but is continuing himself needing to direct and advocate for himself. He he is working on getting [employer] support, does have an interview with a caregiver this afternoon. Patiently easily overwhelmed with multiple phone calls, appointments, difficulty at times with follow-through. Medications/Allergies - Medications Home Medications: Ambulatory Orders Medication Instructions Recorded Confirmed Lorazepam [Ativan] 1 mg PO Q8HR PRN 09/23/15 05/09/18 Tamsulosin [Flomax] 0.4 mg PO DAILY 06/29/16 05/09/18 Oxycodone HCl 10 - 20 mg PO Q4HR PRN MDD 8 tabs 07/26/17 05/09/18 Sennosides [Senna Lax] 17.2 mg PO TID 08/10/17 05/09/18 Lidocaine Ointment 5% [Xylocaine 1 appful TOP PRN PRN 08/20/17 05/09/18 Ointment 5%] Potassium Chloride [K-Dur] 40 meq PO BID 08/30/17 05/09/18 Gabapentin [Neurontin] 400 mg PO .1200MG AM;800 MGPM 09/27/17 05/09/18 Levetiracetam [Keppra] 500 mg PO BID #30 tablet 11/23/17 05/09/18 Ondansetron Odt [Zofran Odt] 4 mg TL Q6H PRN #15 tablet 03/19/18 05/09/18 Torsemide 20 mg PO DAILY MDD 40 mg; second 04/26/18 05/09/18 dose prn Budesonide/Formoterol Fumarate 10.2 gm IH BID #1 hfa.aer.ad 05/03/18 05/09/18 [Symbicort 160-4.5 Mcg Inhaler] Ipratropium/Albuterol [Duoneb] 3 ml INH Q4H PRN #120 neb 05/03/18 05/09/18 Nebulizer and Compressor [Easy Air 1 each MC QID #1 each 05/03/18 05/09/18 Compressor Nebulizer] Oxycodone HCl [Oxycodone HCl ER] 20 mg PO TID 05/03/18 05/09/18 Prednisone 10 mg PO DAILY #14 tab.ds.pk 05/03/18 05/09/18 Sulfamethox/Trimeth 800/160 1 each PO BID #14 tablet 05/03/18 05/09/18 [Bactrim Ds] Albuterol Sulf [Ventolin Hfa 2 puffs INH Q4HR PRN 05/09/18 05/09/18 Inhaler] Esomeprazole Magnesium [Nexium] 1 tab PO DAILY 05/09/18 05/09/18 Loperamide [Imodium] 2 mg PO QID PRN 05/09/18 05/09/18 Magnesium Oxide [Magnesium] 400 mg PO DAILY 05/09/18 05/09/18 Melatonin 3 - 6 mg PO QPM PRN 05/09/18 05/09/18 Nystatin 5 ml PO QID 05/09/18 05/09/18 Vitamin B Complex/Folic Acid 1 tab PO DAILY 05/09/18 05/09/18 [Vitamin B-100 Complex Tablet] - Allergies Allergies/Adverse Reactions: Allergies Allergy/AdvReac Type Severity Reaction Status Date / Time BRONWYN Inhibitors Allergy Emesis Verified 04/15/18 23:38 amoxicillin [From Augmentin] Allergy Emesis Verified 04/15/18 23:38 clavulanic acid Allergy Emesis Verified 04/15/18 23:38 [From Augmentin] lisinopril Allergy "THROAT Verified 04/15/18 23:38 SWELLING" Review of Systems - Constitutional Constitutional: reports: Fatigue, Weight loss. denies: Fever, Chills - Eyes Eyes: reports: Vision loss, Corrective lenses - Ears, Nose & Throat Ears, Nose & Throat: reports: Hearing loss (mild), Dental decay (one tooth left) - Cardiovascular Cardiovascular: reports: Edema (improved), Exertional dyspnea, Decr. exercise tolerance - Respiratory Respiratory: reports: Cough, Wheezing, SOB with exertion - Gastrointestinal Gastrointestinal: reports: Nausea (using ondansetron 1-2 times a day), Early satiety. denies: Diarrhea - Genitourinary Genitourinary: reports: Frequency, Urgency - Musculoskeletal Musculoskeletal: reports: Muscle aches, Stiffness, Muscle weakness, Assistive devices (uses walker for longer distances) - Integumentary Integumentary: reports: Other (reports some open blisters; has wraps on) - Neurological Neurological: reports: General weakness, Memory problems. denies: Seizures (non recently) - Psychiatric Psychiatric: reports: Anxiety - Endocrine Endocrine: reports: Intolerance to cold - Hematologic/Lymphatic Hematologic/Lymphatic: reports: Recurrent infections (new dx of pneumonia) - All Other Systems All Other Systems: reports: Reviewed and negative Physical Exam - Vital Signs Temperature: 97.5 C Pulse Rate: 112 Respiratory Rate: 18 O2 Saturation: 97 (ra @ rest) Blood Pressure: 132/74 - Physical Exam General Appearance: positive: No acute distress, Anxious Eyes Bilateral: positive: Normal inspection ENT: negative: Pharyngeal erythema, Oral lesions Neck: positive: No JVD, Trachea midline Cardiovascular: positive: Tachycardia Respiratory: positive: Diminished throughout, Wheezes. negative: Rales, Rhonchi Abdomen: positive: Soft, Nml bowel sounds Skin: positive: Pallor, Dryness Extremities: positive: Pedal edema (much improved 1+ up to midcalf) Neurologic/Psychiatric: positive: Oriented x3, Weakness, Depressed mood/affect, Flat affect Palliative Care - POLST Patient has POLST: No POLST Status: Full Code Pain: Pain improved, Location (see HPI) Tiredness/Fatigue: Moderate (4-6) Drowsiness/Sedation: Moderate (4-6) Nausea: Moderate (4-6) Depression: Mild (1-3) Anxiety: Severe (7-10) Dyspnea: Moderate (4-6) Anorexia: Moderate (4-6) Sleep: Variable sleep pattern Constipation: Yes, Opoid induced, Managed Feelings of wellbeing/Perceived Quality of Life: Fair, Improved Performance Status: Patient has been ambulatory around apartment, does get quite winded with any exertion. Patient's activity tolerance has steadily gone down, most recently though was admitted with pneumonia. Patient has made several attempts to re- start physical therapy, multiple barriers regarding this including transportation, follow-through. Patient does report though trying to do home exercise program currently has. Awaiting [facility]AMES support to help with bathing; currently sponge bathing related to safety. - Palliative Care Discussion: Patient does have underlying anxiety disorder, chronic alcoholism, and has been feeling very stressed with all the multiple complexities of managing his current care situation and schedule. He is feeling somewhat better with his pneumonia treated, and as he has been able to back off on multiple medications has felt somewhat clear as well. He is pleased his son is somewhat supportive in his new situation, but continues to get easily frustrated. Patient continues to be quite anxious about his underlying serious illness, continues to access the healthcare system frequently, many attempts both by his PCP and myself to mitigate some of this has been difficult. Results - Lab Results Lab results reviewed: Yes Impression and Recommendations - Palliative Care Impression: This is a 58-year-old gentleman with adenocarcinoma of the lung brain metastases status post CyberKnife, history of seizures, hyponatremia, and now presents with pneumonia. Patient continues to struggle in the management of his medical condition, financial stressors, and social situation. Palliative care continue to try to assist with pain and symptom management, patient often misses appointments, home visit made today to evaluate medication adherence Recommendations/Counseling Done: 1. Pneumonia. Patient does appear much improved both mentally, and with respiratory status. Patient continues with some expiratory wheezes, does have the DuoNeb medications but not the nebulizer. Was not ordered from the right place, will facilitate receiving nebulizer from [facility] [place], and ongoing medications. Patient will benefit long-term from the use of the duo nebs given patient continues to smoke, and is quite fragile as far as his respiratory status. Counseling was provided regarding tobacco use, patient's perception is he has cut down, using a carton every 2 weeks instead of 1 week. Reviewed inhalers, patient is finishing up appropriately his antibiotic and steroids. 2. Pain of neoplastic origin. Patient has been able to stay within his allotted opioid use, reports his pain has improved somewhat, is using the OxyContin 20 mg 3 times a day, and Oxycodone 10- 20 mg up to 4 times a day. Rx provided for oxycontin, has "spilled" his oxycodone, aware he is not due for new RX, and has mapped out for rest of time. 3. Peripheral neuropathy. This has improved with the use of his topical "drag improve", this does include CBD. His swelling also has improved which has added to his management of his pain as well. In agreement with previous conversations, he has been decreasing his gabapentin, this is to assist with his altered mental clarity, he is down to 1200 mg a.m., and 800 mg in the evening, does feel he is at a good medium currently. 3. Medication adherence. We did review, all of his medications, patient does have a unique system but is able to verbalize exactly what is taking, he does have vision problems, is marked big letters on the top, he has not been able to use his DuoNeb so as he does not have a nebulizer. Arrangements will be made to get this delivered. Patient was going to put in hot water and boil to use his DuoNeb medication, using the steam. Patient was counseled this is not safe nor appropriate use of this medication. 4. Seizures. Still awaiting MRI, patient reports does have intermittent initial trembles, if patient can lay down with feet up, using Lorazepam can mitigate any seizure-like activity. This happens about 2 times a week. 5. Lower extremity edema. Patient continues at high risk for recurrent cellulitis, poor skin circulation, is seen PCP tomorrow for wound care check. Patient currently wrapped and declined evaluation at home visit today. 6. Advanced care planning. Patient awaiting follow-up to [facility] trying to secure worker at this point in time. Patient continues to get easily overwhelmed, he reports son is providing more support. Problem solving done regarding transportation and visit for MRI on 05/27. Will revisit close to the time to confirm patient has transportation and plans to follow through. Patient continues to express desires for full code, is thinking about having son for DPOA. [id number] for nebulizer treatment. Patient presents with lung cancer, long- standing COPD, now with pneumonia. Patient requires DuoNeb for management of wheezing, symptoms regarding his COPD, and delivery of medication. Time Spent: 45 minutes with greater than 50% of this done in counseling regarding medication management, pain management, safe use of storage of opioids, as well as anticipatory guidance and home safety check
== END 2018-05-08 14:01 | disposition home or self-care (01) ==
LOC: PC 14:00
PROVIDERS: ATTEND Nurse Practitioner Adult Health
DX: Z51.5 Encounter for palliative care (principal); J18.9 Pneumonia, unspecified organism; C34.90 Malignant neoplasm of unspecified part of unspecified bronchus or lung; G89.3 Neoplasm related pain (acute) (chronic); C79.31 Secondary malignant neoplasm of brain; R56.9 Unspecified convulsions; R60.0 Localized edema; F41.9 Anxiety disorder, unspecified; F10.20 Alcohol dependence, uncomplicated; G62.9 Polyneuropathy, unspecified; Z79.891 Long term (current) use of opiate analgesic; Z79.51 Long term (current) use of inhaled steroids; Z79.899 Other long term (current) drug therapy; R35.0 Frequency of micturition; R39.15 Urgency of urination
CPT/HCPCS: 99349

== ENCOUNTER 2018-05-09 11:56 | Outpatient (CLI) | payer MEDICAID ==
[2018-05-09 18:38] LABS: CALCIUM 8.8 mg/dL (8.5-10.3)
== END 2018-05-09 11:57 | disposition home or self-care (01) ==
LOC: LAB.F 11:56
PROVIDERS: ATTEND Nurse Practitioner Family
DX: E87.1 Hypo-osmolality and hyponatremia (principal)
CPT/HCPCS: 36415; 80048

== ENCOUNTER 2018-05-11 04:40 | Outpatient (CLI) | payer MEDICAID | END 2018-05-11 04:41 | disposition critical access hospital (66) | LOC: EMS 04:40 | PROVIDERS: ATTEND Surgery | DX: R68.89 Other general symptoms and signs (principal); R51 Headache | CPT/HCPCS: A0425; A0429; A0999 ==

== ENCOUNTER 2018-05-11 05:15 | Emergency (ER) | payer MEDICAID ==
--- NOTE | 2018-05-11 05:20 | ED Physician Documentation ---
History of Present Illness - Stated complaint Stated Complaint: ETOH, TIRED, SHAKY - History obtained from History obtained from: Patient - History of Present Illness Timing: How many days ago (2 days) Pain level now: 0 Improved by: nothing Worsened by: no ameliorating factors - Additonal information Additional information: IRAIS, patient called 911 due to feeling kind of shaky and confused (per patient). he says he has been having these symptoms on a recurrent basis for weeks and he is worried his sodium is low again. he had outpatient BMP 2 days ago, sodium was 128 at that time Review of Systems Constitutional: reports: Fatigue. denies: Fever, Chills, Sweats Cardiac: reports: Reviewed and negative Respiratory: reports: Reviewed and negative GI: reports: Reviewed and negative Neurologic: reports: Generalized weakness, Confused. denies: Focal weakness, Numbness, Headache PD PAST MEDICAL HISTORY - Past Medical History Past Medical History: Yes Other Past Medical History: lung CA with brain mets, hyponatremia - Present Medications Home Medications: Ambulatory Orders Medication Instructions Recorded Confirmed Lorazepam [Ativan] 1 mg PO Q8HR PRN 09/23/15 05/09/18 Tamsulosin [Flomax] 0.4 mg PO DAILY 06/29/16 05/09/18 Oxycodone HCl 10 - 20 mg PO Q4HR PRN MDD 8 tabs 07/26/17 05/09/18 Sennosides [Senna Lax] 17.2 mg PO TID 08/10/17 05/09/18 Lidocaine Ointment 5% [Xylocaine 1 appful TOP PRN PRN 08/20/17 05/09/18 Ointment 5%] Potassium Chloride [K-Dur] 40 meq PO BID 08/30/17 05/09/18 Gabapentin [Neurontin] 400 mg PO .1200MG AM;800 MGPM 09/27/17 05/09/18 Levetiracetam [Keppra] 500 mg PO BID #30 tablet 11/23/17 05/09/18 Ondansetron Odt [Zofran Odt] 4 mg TL Q6H PRN #15 tablet 03/19/18 05/09/18 Torsemide 20 mg PO DAILY MDD 40 mg; second 04/26/18 05/09/18 dose prn Budesonide/Formoterol Fumarate 10.2 gm IH BID #1 hfa.aer.ad 05/03/18 05/09/18 [Symbicort 160-4.5 Mcg Inhaler] Ipratropium/Albuterol [Duoneb] 3 ml INH Q4H PRN #120 neb 05/03/18 05/09/18 Nebulizer and Compressor [Easy Air 1 each MC QID #1 each 05/03/18 05/09/18 Compressor Nebulizer] Oxycodone HCl [Oxycodone HCl ER] 20 mg PO TID 05/03/18 05/09/18 Prednisone 10 mg PO DAILY #14 tab.ds.pk 05/03/18 05/09/18 Sulfamethox/Trimeth 800/160 1 each PO BID #14 tablet 05/03/18 05/09/18 [Bactrim Ds] Albuterol Sulf [Ventolin Hfa 2 puffs INH Q4HR PRN 05/09/18 05/09/18 Inhaler] Esomeprazole Magnesium [Nexium] 1 tab PO DAILY 05/09/18 05/09/18 Loperamide [Imodium] 2 mg PO QID PRN 05/09/18 05/09/18 Magnesium Oxide [Magnesium] 400 mg PO DAILY 05/09/18 05/09/18 Melatonin 3 - 6 mg PO QPM PRN 05/09/18 05/09/18 Nystatin 5 ml PO QID 05/09/18 05/09/18 Vitamin B Complex/Folic Acid 1 tab PO DAILY 05/09/18 05/09/18 [Vitamin B-100 Complex Tablet] - Allergies Allergies/Adverse Reactions: Allergies Allergy/AdvReac Type Severity Reaction Status Date / Time BRONWYN Inhibitors Allergy Emesis Verified 05/11/18 05:27 amoxicillin [From Augmentin] Allergy Emesis Verified 05/11/18 05:27 clavulanic acid Allergy Emesis Verified 05/11/18 05:27 [From Augmentin] lisinopril Allergy "THROAT Verified 05/11/18 05:27 SWELLING" - Living Situation Living Situation: reports: Alone Living Arrangement: reports: At home - Social History Does the pt drink ETOH?: Yes PD ED PE NORMAL - Vitals Vital signs reviewed: Yes - General General: Alert and oriented X 3, No acute distress, Well developed/nourished - HEENT HEENT: PERRL, EOMI, Moist mucous membranes - Neck Neck: Supple, no meningeal sign - Cardiac Cardiac: RRR, No murmur - Respiratory Respiratory: No respiratory distress, Other (bilateral end-expiratory wheezing) - Abdomen Abdomen: Soft, Non tender - Neuro Neuro: Alert and oriented X 3, vacuum furnace operator 2-12 intact, No motor deficit, No sensory deficit, Normal speech Eye Opening: Spontaneous Motor: Obeys Commands Verbal: Oriented GCS Score: 15 PD ED PE EXPANDED - Extremities Extremities: Pedal edema bilateral Results - Vitals Vitals: Vital Signs - 24 hr 05/11/18 05/11/18 05/11/18 05:13 05:34 06:46 Temperature 36.9 C Heart Rate 92 86 83 Respiratory 19 16 15 Rate Blood Pressure 134/84 H 113/71 131/79 H O2 Saturation 97 95 94 05/11/18 07:48 Temperature Heart Rate 84 Respiratory 18 Rate Blood Pressure 138/88 H O2 Saturation 95 Oxygen O2 Source Room air - Labs Labs: Laboratory Tests 05/11/18 05/11/18 05/11/18 06:25 06:25 06:35 WBC 8.1 RBC 3.28 L Hgb 10.7 L Hct 31.5 L MCV 96.1 H MCH 32.5 H MCHC 33.8 RDW 15.3 H Plt Count 164 MPV 6.2 L Neut # (Auto) 6.1 Lymph # (Auto) 1.2 L [place] # (Auto) 0.7 Eos # (Auto) 0.0 Baso # (Auto) 0.0 Absolute Nucleated RBC 0.00 Nucleated RBC % 0.1 Sodium 132 L Potassium 4.2 Chloride 100 L Carbon Dioxide 22 Anion Gap 10.0 BUN 20 Creatinine 0.7 Estimated GFR (MDRD) 117 Glucose 105 H Calcium 8.5 Total Bilirubin 0.5 AST 22 ALT 13 Alkaline Phosphatase 68 Total Protein 7.1 Albumin 3.8 Globulin 3.3 Albumin/Globulin Ratio 1.2 Lipase 62 H Urine Color YELLOW Urine Clarity CLEAR Urine pH 6.0 Ur Specific [place] <=1.005 Urine Protein NEGATIVE Urine Glucose (UA) NEGATIVE Urine Ketones NEGATIVE Urine Occult Blood NEGATIVE Urine Nitrite NEGATIVE Urine Bilirubin NEGATIVE Urine Urobilinogen 0.2 (NORMAL) Ur Leukocyte Esterase NEGATIVE Ur Microscopic Review NOT INDICATED Urine Culture Comments NOT INDICATED PD MEDICAL DECISION MAKING - ED course Complexity details: reviewed old records, reviewed results, re-evaluated patient, considered differential, d/w patient Departure - Departure Disposition: 01 Home, Self Care Clinical Impression: Generalized weakness Condition: Good Instructions: ED Weakness [facility]O Follow-Up: Yessica Patel ARNP [Provider Admit Priv/Credential] - Within 1 week Discharge Date/Time: 05/11/18 08:47
[2018-05-11 06:31] LABS: BASOPHILS % (AUTO) 0.5 %; EOSINOPHILS % (AUTO) 0.6 %; HGB - HEMOGLOBIN 10.7 g/dL (14.0-18.0); LYMPHOCYTES # (AUTO) 1.2 10^3/uL (1.5-3.5); LYMPHOCYTES % (AUTO) 14.5 %; MEAN CORPUSCULAR HEMOGLOBIN 32.5 pg (27.0-31.0); MEAN CORPUSCULAR HGB CONC 33.8 g/dL (32.0-36.0); MEAN CORPUSCULAR VOLUME 96.1 fL (80.0-94.0); MEAN PLATELET VOLUME 6.2 fL (7.4-11.4); MONOCYTES # (AUTO) 0.7 10^3/uL (0.0-1.0); MONOCYTES % (AUTO) 8.3 %; NEUTROPHILS # (AUTO) 6.1 10^3/uL (1.5-6.6); NEUTROPHILS % (AUTO) 76.1 %; PLT - PLATELET COUNT 164 10^3/uL (130-450); RED BLOOD COUNT 3.28 10^6/uL (4.70-6.10); RED CELL DISTRIBUTION WIDTH 15.3 % (12.0-15.0); WHITE BLOOD COUNT 8.1 x10^3/uL (4.8-10.8)
[2018-05-11 06:44] LABS: ALBUMIN 3.8 g/dL (3.2-5.5); ALBUMIN/GLOBULIN RATIO 1.2 (1.0-2.2); BILIRUBIN,TOTAL 0.5 mg/dL (0.2-1.0); CALCIUM 8.5 mg/dL (8.5-10.3); CREATININE 0.7 mg/dL (0.6-1.2); TOTAL PROTEIN 7.1 g/dL (6.7-8.2)
[2018-05-11 07:03] LABS: BILIRUBIN,URINE NEGATIVE (NEGATIVE); GLUCOSE, URINE (UA) NEGATIVE (NEGATIVE); KETONES,URINE (UA) NEGATIVE (NEGATIVE); LEUKOCYTE ESTERASE, URINE NEGATIVE (NEGATIVE); NITRITE,URINE NEGATIVE (NEGATIVE); OCCULT BLOOD,URINE NEGATIVE (NEGATIVE); PROTEIN,URINE NEGATIVE (NEGATIVE); UROBILINOGEN,URINE 0.2 (NORMAL) E.U./dL (NORMAL)
[2018-05-11 07:06] LABS: CLARITY,URINE CLEAR (CLEAR)
[2018-05-11 07:51] VITALS: BP 138/88
== END 2018-05-11 08:47 | disposition home or self-care (01) ==
LOC: EDUNIT# → ED 05:15
DX: R53.1 Weakness (principal); R60.0 Localized edema; C34.90 Malignant neoplasm of unspecified part of unspecified bronchus or lung; C79.31 Secondary malignant neoplasm of brain
CPT/HCPCS: 36415; 80053; 81001; 81003; 83690; 85025; 87086; 99282; 99283

== ENCOUNTER 2018-05-21 03:35 | Outpatient (CLI) | payer MEDICAID | END 2018-05-21 03:36 | disposition critical access hospital (66) | LOC: EMS 03:35 | PROVIDERS: ATTEND Surgery | DX: R06.02 Shortness of breath (principal); R50.9 Fever, unspecified; R00.0 Tachycardia, unspecified | CPT/HCPCS: A0425; A0427; A0999 ==

== ENCOUNTER 2018-05-21 04:09 | Emergency (ER) | payer MEDICAID ==
--- NOTE | 2018-05-21 04:17 | ED Physician Documentation ---
History of Present Illness - Stated complaint Stated Complaint: SOA, WEAKNESS - History obtained from History obtained from: Patient, EMS - History of Present Illness Timing: How many hours ago (2) Pain level now: 5 (chronic BLE pain) Improved by: no ameliorating factors Worsened by: no exacerbating factors - Additonal information Additional information: woke from sleep approximately 2 hours [employer] with shaking chills, dyspnea, generalized weakness. He called 911 and medics measured a temperature of 101 and pulse 150. Review of Systems Constitutional: reports: Fever, Chills, Myalgias. denies: Sweats Nose: reports: Reviewed and negative Throat: denies: Sore throat Cardiac: reports: Pedal edema (chronic). denies: Chest pain / pressure, Palpitations Respiratory: reports: Dyspnea, Cough. denies: Hemoptysis, Wheezing GI: denies: Abdominal Pain, Nausea, Vomiting, Constipation, Diarrhea : denies: Dysuria, Frequency Musculoskeletal: reports: Extremity pain (chronic BLE pain). denies: Neck pain, Back pain Neurologic: reports: Generalized weakness. denies: Focal weakness, Numbness, Headache PD PAST MEDICAL HISTORY - Past Medical History Cardiovascular: Hypertension, Coronary artery disease, Peripheral Vascular Disease Respiratory: COPD, Shortness of breath, Other Neuro: Seizure disorder, Other Endocrine/Autoimmune: None GI: GERD, Chronic constipation, Diverticulitis : Benign prostate hypertrophy, Incontinence, Nocturia, Frequency HEENT: Chronic vision loss Psych: Anxiety Musculoskeletal: Chronic back pain, Other Derm: None - Past Surgical History Past Surgical History: Yes Ortho: Amputation Cardiovascular: Cardiac catheterization Neuro: Craniotomy, Gamma knife - Present Medications Home Medications: Ambulatory Orders Medication Instructions Recorded Confirmed Lorazepam [Ativan] 1 mg PO Q8HR PRN 09/23/15 05/09/18 Tamsulosin [Flomax] 0.4 mg PO DAILY 06/29/16 05/09/18 Oxycodone HCl 10 - 20 mg PO Q4HR PRN MDD 8 tabs 07/26/17 05/09/18 Sennosides [Senna Lax] 17.2 mg PO TID 08/10/17 05/09/18 Lidocaine Ointment 5% [Xylocaine 1 appful TOP PRN PRN 08/20/17 05/09/18 Ointment 5%] Potassium Chloride [K-Dur] 40 meq PO BID 08/30/17 05/09/18 Gabapentin [Neurontin] 400 mg PO .1200MG AM;800 MGPM 09/27/17 05/09/18 Levetiracetam [Keppra] 500 mg PO BID #30 tablet 11/23/17 05/09/18 Ondansetron Odt [Zofran Odt] 4 mg TL Q6H PRN #15 tablet 03/19/18 05/09/18 Torsemide 20 mg PO DAILY MDD 40 mg; second 04/26/18 05/09/18 dose prn Budesonide/Formoterol Fumarate 10.2 gm IH BID #1 hfa.aer.ad 05/03/18 05/09/18 [Symbicort 160-4.5 Mcg Inhaler] Ipratropium/Albuterol [Duoneb] 3 ml INH Q4H PRN #120 neb 05/03/18 05/09/18 Nebulizer and Compressor [Easy Air 1 each MC QID #1 each 05/03/18 05/09/18 Compressor Nebulizer] Oxycodone HCl [Oxycodone HCl ER] 20 mg PO TID 05/03/18 05/09/18 Prednisone 10 mg PO DAILY #14 tab.ds.pk 05/03/18 05/09/18 Sulfamethox/Trimeth 800/160 1 each PO BID #14 tablet 05/03/18 05/09/18 [Bactrim Ds] Albuterol Sulf [Ventolin Hfa 2 puffs INH Q4HR PRN 05/09/18 05/09/18 Inhaler] Esomeprazole Magnesium [Nexium] 1 tab PO DAILY 05/09/18 05/09/18 Loperamide [Imodium] 2 mg PO QID PRN 05/09/18 05/09/18 Magnesium Oxide [Magnesium] 400 mg PO DAILY 05/09/18 05/09/18 Melatonin 3 - 6 mg PO QPM PRN 05/09/18 05/09/18 Nystatin 5 ml PO QID 05/09/18 05/09/18 Vitamin B Complex/Folic Acid 1 tab PO DAILY 05/09/18 05/09/18 [Vitamin B-100 Complex Tablet] Azithromycin [Zithromax] 250 mg PO DAILY #4 tablet 05/21/18 predniSONE [Prednisone] 40 mg PO DAILY 3 Days #6 tablet 05/21/18 - Allergies Allergies/Adverse Reactions: Allergies Allergy/AdvReac Type Severity Reaction Status Date / Time BRONWYN Inhibitors Allergy Emesis Verified 05/21/18 04:38 amoxicillin [From Augmentin] Allergy Emesis Verified 05/21/18 04:38 clavulanic acid Allergy Emesis Verified 05/21/18 04:38 [From Augmentin] lisinopril Allergy "THROAT Verified 05/21/18 04:38 SWELLING" - Social History Does the pt smoke?: Yes Smoking Status: Current every day smoker Does the pt drink ETOH?: Yes Does the pt have substance abuse?: No - Immunizations Immunizations are current?: Yes - POLST Patient has POLST: No POLST Status: Other PD ED PE NORMAL - Vitals Vital signs reviewed: Yes - General General: Alert and oriented X 3, No acute distress, Well developed/nourished - HEENT HEENT: Moist mucous membranes - Neck Neck: Supple, no meningeal sign - Cardiac Cardiac: No murmur - Respiratory Respiratory: No respiratory distress, Other (diminished breath sounds bilaterally with scattered rhonichi, most pronounced at right base) - Abdomen Abdomen: Soft, Non tender, Non distended - Back Back: No CVA TTP - Derm Derm: Normal color - Neuro Neuro: Alert and oriented X 3 Eye Opening: Spontaneous Motor: Obeys Commands Verbal: Oriented GCS Score: 15 PD ED PE EXPANDED - Cardiac Cardiac: Tachy, Regular Rhythm - Extremities Extremities: Pedal edema bilateral Results - Vitals Vitals: Vital Signs - 24 hr 05/21/18 07:51 Heart Rate 120 H Respiratory 20 Rate Blood Pressure 105/74 O2 Saturation 90 L Oxygen O2 Source Room air - Labs Labs: Microbiology 05/21/18 04:55 Blood Culture - Preliminary Blood - Left Arm NO GROWTH AFTER 1 DAY 05/21/18 04:30 Blood Culture - Preliminary Blood - Right Arm NO GROWTH AFTER 1 DAY Laboratory Tests 05/21/18 05/21/18 05/21/18 04:30 04:30 04:30 WBC 9.3 RBC 3.40 L Hgb 11.1 L Hct 31.7 L MCV 93.2 MCH 32.7 H MCHC 35.0 RDW 15.4 H Plt Count 85 L MPV 6.5 L Neut # (Auto) 8.0 H Lymph # (Auto) 0.7 L [place] # (Auto) 0.6 Eos # (Auto) 0.0 Baso # (Auto) 0.1 Absolute Nucleated RBC 0.00 Nucleated RBC % 0.0 Sodium 126 L Potassium 4.0 Chloride 91 L Carbon Dioxide 25 Anion Gap 10.0 BUN 17 Creatinine 0.9 Estimated GFR (MDRD) 87 L Glucose 100 Lactic Acid Calcium 8.4 L B-Natriuretic Peptide 64 Urine Color Urine Clarity Urine pH Ur Specific [place] Urine Protein Urine Glucose (UA) Urine Ketones Urine Occult Blood Urine Nitrite Urine Bilirubin Urine Urobilinogen Ur Leukocyte Esterase Ur Microscopic Review Urine Culture Comments Ethyl Alcohol 37.9 Influenza A (Rapid) Influenza B (Rapid) 05/21/18 05/21/18 05/21/18 04:30 04:30 05:05 WBC RBC Hgb Hct MCV MCH MCHC RDW Plt Count MPV Neut # (Auto) Lymph # (Auto) [place] # (Auto) Eos # (Auto) Baso # (Auto) Absolute Nucleated RBC Nucleated RBC % Sodium Potassium Chloride Carbon Dioxide Anion Gap BUN Creatinine Estimated GFR (MDRD) Glucose Lactic Acid 1.4 Calcium B-Natriuretic Peptide Urine Color YELLOW Urine Clarity CLEAR Urine pH 7.5 Ur Specific [place] 1.010 Urine Protein NEGATIVE Urine Glucose (UA) NEGATIVE Urine Ketones NEGATIVE Urine Occult Blood NEGATIVE Urine Nitrite NEGATIVE Urine Bilirubin NEGATIVE Urine Urobilinogen 0.2 (NORMAL) Ur Leukocyte Esterase NEGATIVE Ur Microscopic Review NOT INDICATED Urine Culture Comments NOT INDICATED Ethyl Alcohol Influenza A (Rapid) Negative Influenza B (Rapid) Negative - Rads (name of study) chest xray Radiology: Prelim report reviewed, See rad report PD MEDICAL DECISION MAKING - ED course Complexity details: reviewed old records, reviewed results, re-evaluated patient, considered differential, d/w patient ED course: Patient improved significantly during ED stay, in appearance as well as per patient. Tmax in ED was 101.1, and he was afebrile prior to discharge (Tmax in field, by medics, was 101). Pulse improved to 100s during ED stay, would increase to 120 with movement/ambulation, but rapidly improved to 100s with rest. Pulse ox lower 90s room air and decreased briefly to 90 with ambulation; however, this did not correlate with worsening symptoms. He reported feeling improved and well enough to go home. He did c/o chronic BLE pain and says he was late for his morning dose of 10mg oxycodone, which was thus given in ED with good relief per patient. Departure - Departure Disposition: 01 Home, Self Care Clinical Impression: Pneumonia Qualifiers: Pneumonia type: due to unspecified organism Laterality: right Lung location: lower lobe of lung Qualified Code(s): J18.1 - Lobar pneumonia, unspecified organism Condition: Good Instructions: ED Pneumonia Adult Follow-Up: [facility] [Provider Group] [facility] [Provider Group] Prescriptions: Azithromycin [Zithromax] 250 mg PO DAILY #4 tablet predniSONE [Prednisone] 40 mg PO DAILY 3 Days #6 tablet Discharge Date/Time: 05/21/18 08:20
[2018-05-21 04:42] LABS: BASOPHILS # (AUTO) 0.1 10^3/uL (0.0-0.1); BASOPHILS % (AUTO) 0.9 %; EOSINOPHILS % (AUTO) 0.1 %; HGB - HEMOGLOBIN 11.1 g/dL (14.0-18.0); LYMPHOCYTES # (AUTO) 0.7 10^3/uL (1.5-3.5); MEAN CORPUSCULAR HEMOGLOBIN 32.7 pg (27.0-31.0); MEAN CORPUSCULAR VOLUME 93.2 fL (80.0-94.0); MEAN PLATELET VOLUME 6.5 fL (7.4-11.4); MONOCYTES # (AUTO) 0.6 10^3/uL (0.0-1.0); MONOCYTES % (AUTO) 6.3 %; NEUTROPHILS % (AUTO) 85.7 %; PLT - PLATELET COUNT 85 10^3/uL (130-450); RED CELL DISTRIBUTION WIDTH 15.4 % (12.0-15.0); WHITE BLOOD COUNT 9.3 x10^3/uL (4.8-10.8)
[2018-05-21 04:52] LABS: CALCIUM 8.4 mg/dL (8.5-10.3); CREATININE 0.9 mg/dL (0.6-1.2)
[2018-05-21 04:56] LABS: BILIRUBIN,URINE NEGATIVE (NEGATIVE); GLUCOSE, URINE (UA) NEGATIVE (NEGATIVE); KETONES,URINE (UA) NEGATIVE (NEGATIVE); LEUKOCYTE ESTERASE, URINE NEGATIVE (NEGATIVE); NITRITE,URINE NEGATIVE (NEGATIVE); OCCULT BLOOD,URINE NEGATIVE (NEGATIVE); PH,URINE 7.5 PH (5.0-7.5); PROTEIN,URINE NEGATIVE (NEGATIVE); UROBILINOGEN,URINE 0.2 (NORMAL) E.U./dL (NORMAL)
[2018-05-21 04:58] LABS: CLARITY,URINE CLEAR (CLEAR)
--- NOTE | 2018-05-21 05:10 | XRAY Report ---
Reason: fever, cough Procedure Date: 05/21/2018 Accession Number: [id number] / [id number] Procedure: XR - Chest 2 View X-Ray CPT Code: 74989 FULL RESULT: EXAM: CHEST RADIOGRAPHY EXAM DATE: 05/21/2018 05:01 AM. CLINICAL HISTORY: Fever, cough. COMPARISON: CHEST 2 VIEW 05/02/2018 10:35 PM. TECHNIQUE: 2 views. FINDINGS: Lungs/Pleura: There is a persistent and progressive infiltrate in the right lower lobe. The lung volumes remain shallow. The left lung remains clear. Mediastinum: The heart is not enlarged. There is a Port-A-Cath on the left with the tip in the superior vena cava. Other: None. IMPRESSION: Progressive right lower lobe infiltrate/pneumonia. RADIA
[2018-05-21] MEDS ORDERED: AZITHROMYCIN INJ 500 MG in SODIUM CHLORIDE 0.9% 250 ML IV STA (05:45)
[2018-05-21] MEDS ORDERED: cefTRIAXone 1 GM in SODIUM CHLORIDE 0.9% MINIBAG 100 ML IV STA (05:45)
[2018-05-21] MEDS ORDERED: DEXAMETHASONE 10 MG/ML VIAL IVP STA (05:45)
[2018-05-21] MEDS ORDERED: IPRATROPIUM/ALBUTEROL 3 ML NEB INH STA (05:46)
[2018-05-21] MEDS ORDERED: oxyCODONE 5 MG TABLET PO STA (06:33)
[2018-05-21 07:52] VITALS: BP 105/74
== END 2018-05-21 08:20 | disposition home or self-care (01) ==
LOC: EDUNIT# → ED 04:09
DX: J18.1 Lobar pneumonia, unspecified organism (principal); I10 Essential (primary) hypertension; I25.10 Atherosclerotic heart disease of native coronary artery without angina pectoris; I73.9 Peripheral vascular disease, unspecified
CPT/HCPCS: 36415; 71046; 80048; 80320; 81003; 83605; 83880; 85025; 87040; 87275; 87276; 94640; 96365; 96367; 96375; 99283; 99284; A9270; 81001; 87086

== ENCOUNTER 2018-06-01 17:23 | Outpatient (CLI) | payer MEDICAID | END 2018-06-01 17:24 | disposition critical access hospital (66) | LOC: EMS 17:23 | PROVIDERS: ATTEND Surgery | DX: R53.1 Weakness (principal); R53.83 Other fatigue; R25.9 Unspecified abnormal involuntary movements | CPT/HCPCS: A0425; A0429; A0999 ==

== ENCOUNTER 2018-06-01 17:57 | Emergency (ER) | payer MEDICAID ==
[2018-06-01] MEDS ORDERED: SODIUM CHLORIDE 0.9% 1,000 ML IV STA (18:13)
[2018-06-01 18:36] LABS: BASOPHILS % (AUTO) 0.3 %; EOSINOPHILS # (AUTO) 0.1 10^3/uL (0.0-0.7); EOSINOPHILS % (AUTO) 0.7 %; HGB - HEMOGLOBIN 10.6 g/dL (14.0-18.0); LYMPHOCYTES % (AUTO) 11.7 %; MEAN CORPUSCULAR HEMOGLOBIN 32.5 pg (27.0-31.0); MEAN CORPUSCULAR HGB CONC 33.8 g/dL (32.0-36.0); MEAN PLATELET VOLUME 6.5 fL (7.4-11.4); MONOCYTES # (AUTO) 0.5 10^3/uL (0.0-1.0); MONOCYTES % (AUTO) 6.6 %; NEUTROPHILS # (AUTO) 6.5 10^3/uL (1.5-6.6); NEUTROPHILS % (AUTO) 80.7 %; PLT - PLATELET COUNT 111 10^3/uL (130-450); RED BLOOD COUNT 3.27 10^6/uL (4.70-6.10); RED CELL DISTRIBUTION WIDTH 16.6 % (12.0-15.0); WHITE BLOOD COUNT 8.1 x10^3/uL (4.8-10.8)
[2018-06-01 18:49] LABS: ALBUMIN 3.9 g/dL (3.2-5.5); ALBUMIN/GLOBULIN RATIO 1.3 (1.0-2.2); BILIRUBIN,TOTAL 0.7 mg/dL (0.2-1.0); CALCIUM 8.5 mg/dL (8.5-10.3); CREATININE 0.8 mg/dL (0.6-1.2)
[2018-06-01 19:19] LABS: BILIRUBIN,URINE NEGATIVE (NEGATIVE); GLUCOSE, URINE (UA) NEGATIVE (NEGATIVE); KETONES,URINE (UA) NEGATIVE (NEGATIVE); LEUKOCYTE ESTERASE, URINE NEGATIVE (NEGATIVE); NITRITE,URINE NEGATIVE (NEGATIVE); OCCULT BLOOD,URINE NEGATIVE (NEGATIVE); PH,URINE 6.5 PH (5.0-7.5); PROTEIN,URINE NEGATIVE (NEGATIVE); UROBILINOGEN,URINE 0.2 (NORMAL) E.U./dL (NORMAL)
[2018-06-01 19:24] LABS: CLARITY,URINE CLEAR (CLEAR)
--- NOTE | 2018-06-01 19:52 | XRAY Report ---
Reason: cough Procedure Date: 06/01/2018 Accession Number: [id number] / [id number] Procedure: XR - Chest 2 View X-Ray CPT Code: 89423 FULL RESULT: EXAM: CHEST RADIOGRAPHY EXAM DATE: 06/01/2018 07:39 PM. CLINICAL HISTORY: Cough. COMPARISON: CHEST 2 VIEW 05/21/2018 4:41 AM. TECHNIQUE: 2 views. FINDINGS: Tunneled left subclavian central venous Port-A-Cath terminates near the superior cavoatrial junction. Cardiac leads overlie the chest. Heart size is normal. Calcified plaques in the thoracic aorta. Lung volumes are low. Slightly increased patchy posterior right lower lobe opacity compared to the recent prior exam. No new consolidation visualized. No pleural effusions or pneumothoraces. Displaced fractures of the posterior right fifth and sixth ribs again seen. IMPRESSION: Persistent and slightly increased posterior right lower lobe opacity, possibly pneumonia. RADIA
[2018-06-01] MEDS ORDERED: levoFLOXacin 250 MG TABLET PO STA (20:08)
--- NOTE | 2018-06-01 20:08 | ED Physician Documentation ---
History of Present Illness - Stated complaint Stated Complaint: LETHARGY - Chief complaint Chief Complaint: General - History obtained from History obtained from: Patient - History of Present Illness Timing: Today Pain level max: 0 Pain level now: 0 Improved by: rest Worsened by: exertion - Additonal information Additional information: Patient states that he has not been feeling well today. States he feels weaker than usual. Still smokes half a pack or more daily. Was recently treated for pneumonia. No repeat x-ray to ensure clearance. States he had a fever today at home. Does not use oxygen at home. Review of Systems Constitutional: reports: Fever Nose: reports: Rhinorrhea / runny nose, Congestion Respiratory: reports: Cough GI: denies: Abdominal Pain, Nausea, Vomiting, Diarrhea Skin: denies: Rash Musculoskeletal: denies: Neck pain, Back pain Neurologic: denies: Headache PD PAST MEDICAL HISTORY - Past Medical History Past Medical History: Yes Cardiovascular: Hypertension, Coronary artery disease, Peripheral Vascular Disease Respiratory: COPD, Shortness of breath, Other Neuro: Seizure disorder, Other Endocrine/Autoimmune: None GI: GERD, Chronic constipation, Diverticulitis : Benign prostate hypertrophy, Incontinence, Nocturia, Frequency HEENT: Chronic vision loss Psych: Anxiety Musculoskeletal: Chronic back pain, Other Derm: None - Past Surgical History Past Surgical History: Yes Ortho: Amputation Cardiovascular: Cardiac catheterization Neuro: Craniotomy, Gamma knife - Present Medications Home Medications: Ambulatory Orders Medication Instructions Recorded Confirmed Lorazepam [Ativan] 1 mg PO Q8HR PRN 09/23/15 05/09/18 Tamsulosin [Flomax] 0.4 mg PO DAILY 06/29/16 05/09/18 Oxycodone HCl 10 - 20 mg PO Q4HR PRN MDD 8 tabs 07/26/17 05/09/18 Sennosides [Senna Lax] 17.2 mg PO TID 08/10/17 05/09/18 Lidocaine Ointment 5% [Xylocaine 1 appful TOP PRN PRN 08/20/17 05/09/18 Ointment 5%] Potassium Chloride [K-Dur] 40 meq PO BID 08/30/17 05/09/18 Gabapentin [Neurontin] 400 mg PO .1200MG AM;800 MGPM 09/27/17 05/09/18 Levetiracetam [Keppra] 500 mg PO BID #30 tablet 11/23/17 05/09/18 Ondansetron Odt [Zofran Odt] 4 mg TL Q6H PRN #15 tablet 03/19/18 05/09/18 Torsemide 20 mg PO DAILY MDD 40 mg; second 04/26/18 05/09/18 dose prn Budesonide/Formoterol Fumarate 10.2 gm IH BID #1 hfa.aer.ad 05/03/18 05/09/18 [Symbicort 160-4.5 Mcg Inhaler] Ipratropium/Albuterol [Duoneb] 3 ml INH Q4H PRN #120 neb 05/03/18 05/09/18 Nebulizer and Compressor [Easy Air 1 each MC QID #1 each 05/03/18 05/09/18 Compressor Nebulizer] Oxycodone HCl [Oxycodone HCl ER] 20 mg PO TID 05/03/18 05/09/18 Prednisone 10 mg PO DAILY #14 tab.ds.pk 05/03/18 05/09/18 Albuterol Sulf [Ventolin Hfa 2 puffs INH Q4HR PRN 05/09/18 05/09/18 Inhaler] Esomeprazole Magnesium [Nexium] 1 tab PO DAILY 05/09/18 05/09/18 Loperamide [Imodium] 2 mg PO QID PRN 05/09/18 05/09/18 Magnesium Oxide [Magnesium] 400 mg PO DAILY 05/09/18 05/09/18 Melatonin 3 - 6 mg PO QPM PRN 05/09/18 05/09/18 Nystatin 5 ml PO QID 05/09/18 05/09/18 Vitamin B Complex/Folic Acid 1 tab PO DAILY 05/09/18 05/09/18 [Vitamin B-100 Complex Tablet] predniSONE [Prednisone] 40 mg PO DAILY 3 Days #6 tablet 05/21/18 Levofloxacin [Levaquin] 750 mg PO DAILY #4 tablet 06/01/18 - Allergies Allergies/Adverse Reactions: Allergies Allergy/AdvReac Type Severity Reaction Status Date / Time BRONWYN Inhibitors Allergy Emesis Verified 06/01/18 18:08 amoxicillin [From Augmentin] Allergy Emesis Verified 06/01/18 18:08 clavulanic acid Allergy Emesis Verified 06/01/18 18:08 [From Augmentin] lisinopril Allergy "THROAT Verified 06/01/18 18:08 SWELLING" - Social History Does the pt smoke?: Yes Smoking Status: Current every day smoker Does the pt drink ETOH?: Yes Does the pt have substance abuse?: No - Immunizations Immunizations are current?: Yes - POLST Patient has POLST: No POLST Status: Other PD ED PE NORMAL - Vitals Vital signs reviewed: Yes - General General: Alert and oriented X 3, No acute distress, Well developed/nourished - HEENT HEENT: PERRL, Moist mucous membranes - Neck Neck: Supple, no meningeal sign - Cardiac Cardiac: RRR - Respiratory Respiratory: Other (ronchi B, no resp distress) - Abdomen Abdomen: Soft, Non tender, Non distended - Derm Derm: Warm and dry, No rash - Extremities Extremities: No calf tenderness / cord - Neuro Neuro: Alert and oriented X 3 - Psych Psych: Normal mood, Normal affect Results - Vitals Vitals: Vital Signs - 24 hr 06/01/18 06/01/18 06/01/18 18:03 19:20 19:42 Temperature 36.3 C L 36.9 C 37.1 C Heart Rate 95 94 92 Respiratory 18 12 Rate Blood Pressure 144/97 H 129/83 H 124/84 H O2 Saturation 100 95 95 06/01/18 20:41 Temperature 36.9 C Heart Rate 95 Respiratory 13 Rate Blood Pressure 149/85 H O2 Saturation 96 Oxygen O2 Source Room air - Labs Labs: Laboratory Tests 06/01/18 06/01/18 06/01/18 18:30 18:30 19:05 WBC 8.1 RBC 3.27 L Hgb 10.6 L Hct 31.4 L MCV 96.0 H MCH 32.5 H MCHC 33.8 RDW 16.6 H Plt Count 111 L MPV 6.5 L Neut # (Auto) 6.5 Lymph # (Auto) 1.0 L [place] # (Auto) 0.5 Eos # (Auto) 0.1 Baso # (Auto) 0.0 Absolute Nucleated RBC 0.00 Nucleated RBC % 0.0 Sodium 136 Potassium 4.0 Chloride 102 Carbon Dioxide 25 Anion Gap 9.0 BUN 9 Creatinine 0.8 Estimated GFR (MDRD) 100 Glucose 100 Calcium 8.5 Total Bilirubin 0.7 AST 26 ALT 13 Alkaline Phosphatase 64 Total Protein 7.0 Albumin 3.9 Globulin 3.1 Albumin/Globulin Ratio 1.3 Lipase 46 Urine Color YELLOW Urine Clarity CLEAR Urine pH 6.5 Ur Specific [place] <=1.005 Urine Protein NEGATIVE Urine Glucose (UA) NEGATIVE Urine Ketones NEGATIVE Urine Occult Blood NEGATIVE Urine Nitrite NEGATIVE Urine Bilirubin NEGATIVE Urine Urobilinogen 0.2 (NORMAL) Ur Leukocyte Esterase NEGATIVE Ur Microscopic Review NOT INDICATED Urine Culture Comments NOT INDICATED - Rads (name of study) cxr Radiology: Prelim report reviewed, EMP read contemporaneously, See rad report (Persistent and slightly increased posterior right lower lobe opacity, possible pneumonia) PD MEDICAL DECISION MAKING - ED course Complexity details: reviewed old records, reviewed results, re-evaluated patient, considered differential, d/w patient ED course: Patient is a 58-year-old male with what appears to be persistent pneumonia on chest x-ray.He did not clear with the azithromycin, will try Levaquin. He is well-appearing, nontoxic. Afebrile. No hypoxia. Patient counseled regarding signs and symptoms for which I believe and urgent re-evaluation would be necessary. Patient with good understanding of and agreement to plan and is comfortable going home at this time This document was made in part using voice recognition software. While efforts are made to proofread this document, sound alike and grammatical errors may occur. Departure - Departure Disposition: 01 Home, Self Care Clinical Impression: Pneumonia Qualifiers: Pneumonia type: due to unspecified organism Laterality: right Lung location: lower lobe of lung Qualified Code(s): J18.1 - Lobar pneumonia, unspecified organism Condition: Good Instructions: ED Pneumonia Adult Follow-Up: Yessica Patel ARNP [Primary Care Provider] - Within 1 week Prescriptions: Levofloxacin [Levaquin] 750 mg PO DAILY #4 tablet Comments: Take all antibiotics until gone. Return if you worsen. You need a repeat chest x-ray in 1-2 weeks to ensure that your pneumonia has cleared. You can do this with your primary care doctor. Discharge Date/Time: 06/01/18 20:52
[2018-06-01 20:51] VITALS: BP 149/85
== END 2018-06-01 20:52 | disposition home or self-care (01) ==
LOC: EDUNIT# → ED 17:57
DX: J18.1 Lobar pneumonia, unspecified organism (principal); I10 Essential (primary) hypertension; I25.10 Atherosclerotic heart disease of native coronary artery without angina pectoris; I73.9 Peripheral vascular disease, unspecified; F17.200 Nicotine dependence, unspecified, uncomplicated
CPT/HCPCS: 36415; 71046; 80053; 81003; 83690; 85025; 93005; 96361; 96374; 99283; 99284; A9270; 81001; 87086

== ENCOUNTER 2018-06-17 11:36 | Outpatient (CLI) | payer MEDICAID ==
--- NOTE | 2018-06-17 12:12 | XRAY Report ---
Reason: PNEUMONIA Procedure Date: 06/17/2018 Accession Number: [id number] / [id number] Procedure: XR - Chest 2 View X-Ray CPT Code: 24387 FULL RESULT: EXAM: CHEST RADIOGRAPHY EXAM DATE: 06/17/2018 11:54 AM. CLINICAL HISTORY: Pneumonia. COMPARISON: CHEST 2 VIEW 06/01/2018 7:26 PM. TECHNIQUE: 2 views. FINDINGS: Lungs/Pleura: Previously seen predominantly linear opacities in the right mid and lower lung have decreased in prominence. Left retrocardiac linear opacities are similar to before. There is no new lobar consolidation and no pleural effusion or pneumothorax. Mediastinum: Heart and mediastinal contours are unremarkable. Other: Stable positioning of left subclavian approach central venous port. IMPRESSION: Interval decrease in bilateral linear opacities. The appearance is most suggestive of atelectasis/scarring. Resolving pneumonia is also possible. RADIA
== END 2018-06-17 11:37 | disposition home or self-care (01) ==
LOC: DI 11:36
PROVIDERS: ATTEND Nurse Practitioner Family
DX: J18.9 Pneumonia, unspecified organism (principal); E87.1 Hypo-osmolality and hyponatremia; E27.8 Other specified disorders of adrenal gland
CPT/HCPCS: 36415; 71046; 82533; 84295

== ENCOUNTER 2018-06-17 11:55 | Outpatient (CLI) | payer MEDICAID | END 2018-06-17 11:56 | disposition home or self-care (01) | LOC: LAB 11:55 | PROVIDERS: ATTEND Nurse Practitioner Family | DX: E87.1 Hypo-osmolality and hyponatremia (principal); E27.8 Other specified disorders of adrenal gland | CPT/HCPCS: 36415; 82533; 84295 ==

== ENCOUNTER 2018-06-20 12:42 | Emergency (ER) | payer MEDICAID ==
--- NOTE | 2018-06-20 14:07 | ED Physician Documentation ---
PD HPI LOWER EXT INJURY - Stated complaint Stated Complaint: LEFT TOE LOWER EXTREMITY-RED,SWOLLEN,HOT - Chief complaint Chief Complaint: Wound - History obtained from History obtained from: Patient - History of Present Illness PD HPI LOW EXT INJURY LOCATION: Left, Foot Type of injury: Other (This is a 58-year-old gentleman with history of metastatic lung cancer and neuropathy of the feet. He has a wound of the left great toe, that is been going on for about a week with increasing drainage and redness up the foot. There is really no pain because of the neuropathy and he denies fevers or chills. Because of similar wound infections he is already had the second through fourth toes of that foot amputated.) Review of Systems Ten Systems: 10 systems reviewed and negative Constitutional: denies: Fever, Myalgias Throat: denies: Sore throat Cardiac: denies: Chest pain / pressure, Palpitations Respiratory: denies: Dyspnea, Cough PD PAST MEDICAL HISTORY - Past Medical History Cardiovascular: Hypertension, Coronary artery disease, Peripheral Vascular Disease Respiratory: COPD, Shortness of breath, Other Neuro: Seizure disorder, Other Endocrine/Autoimmune: None GI: GERD, Chronic constipation, Diverticulitis : Benign prostate hypertrophy, Incontinence, Nocturia, Frequency HEENT: Chronic vision loss Psych: Anxiety Musculoskeletal: Chronic back pain, Other Derm: None - Past Surgical History Past Surgical History: Yes Ortho: Amputation Cardiovascular: Cardiac catheterization Neuro: Craniotomy, Gamma knife - Present Medications Home Medications: Ambulatory Orders Medication Instructions Recorded Confirmed Lorazepam [Ativan] 1 mg PO Q8HR PRN 09/23/15 05/09/18 Tamsulosin [Flomax] 0.4 mg PO DAILY 06/29/16 05/09/18 Oxycodone HCl 10 - 20 mg PO Q4HR PRN MDD 8 tabs 07/26/17 05/09/18 Sennosides [Senna Lax] 17.2 mg PO TID 08/10/17 05/09/18 Lidocaine Ointment 5% [Xylocaine 1 appful TOP PRN PRN 08/20/17 05/09/18 Ointment 5%] Potassium Chloride [K-Dur] 40 meq PO BID 08/30/17 05/09/18 Gabapentin [Neurontin] 400 mg PO .1200MG AM;800 MGPM 09/27/17 05/09/18 Levetiracetam [Keppra] 500 mg PO BID #30 tablet 11/23/17 05/09/18 Ondansetron Odt [Zofran Odt] 4 mg TL Q6H PRN #15 tablet 03/19/18 05/09/18 Torsemide 20 mg PO DAILY MDD 40 mg; second 04/26/18 05/09/18 dose prn Budesonide/Formoterol Fumarate 10.2 gm IH BID #1 hfa.aer.ad 05/03/18 05/09/18 [Symbicort 160-4.5 Mcg Inhaler] Ipratropium/Albuterol [Duoneb] 3 ml INH Q4H PRN #120 neb 05/03/18 05/09/18 Nebulizer and Compressor [Easy Air 1 each MC QID #1 each 05/03/18 05/09/18 Compressor Nebulizer] Oxycodone HCl [Oxycodone HCl ER] 20 mg PO TID 05/03/18 05/09/18 Albuterol Sulf [Ventolin Hfa 2 puffs INH Q4HR PRN 05/09/18 05/09/18 Inhaler] Esomeprazole Magnesium [Nexium] 1 tab PO DAILY 05/09/18 05/09/18 Loperamide [Imodium] 2 mg PO QID PRN 05/09/18 05/09/18 Magnesium Oxide [Magnesium] 400 mg PO DAILY 05/09/18 05/09/18 Melatonin 3 - 6 mg PO QPM PRN 05/09/18 05/09/18 Nystatin 5 ml PO QID 05/09/18 05/09/18 Vitamin B Complex/Folic Acid 1 tab PO DAILY 05/09/18 05/09/18 [Vitamin B-100 Complex Tablet] Levofloxacin [Levaquin] 750 mg PO DAILY #4 tablet 06/01/18 - Allergies Allergies/Adverse Reactions: Allergies Allergy/AdvReac Type Severity Reaction Status Date / Time BRONWYN Inhibitors Allergy Emesis Verified 06/20/18 13:00 amoxicillin [From Augmentin] Allergy Emesis Verified 06/20/18 13:00 clavulanic acid Allergy Emesis Verified 06/20/18 13:00 [From Augmentin] lisinopril Allergy "THROAT Verified 06/20/18 13:00 SWELLING" - Social History Does the pt smoke?: Yes Smoking Status: Current every day smoker Does the pt drink ETOH?: Yes Does the pt have substance abuse?: No - Family History Family history: reports: Non contributory - Immunizations Immunizations are current?: Yes - POLST Patient has POLST: No POLST Status: Other PD ED PE NORMAL - Vitals Vital signs reviewed: Yes - General General: Alert and oriented X 3, No acute distress - HEENT HEENT: PERRL, EOMI - Neck Neck: Supple, no meningeal sign, No bony TTP - Cardiac Cardiac: RRR, No murmur - Respiratory Respiratory: No respiratory distress - Abdomen Abdomen: Soft, Non tender - Back Back: No CVA TTP, No spinal TTP - Derm Derm: Normal color, Warm and dry - Extremities Extremities: Other (The left foot is status post healed amputations of the second, third, and fourth toes. There is a large necrotic ulcer on the tip of the great toe with redness up to above the ankle. He actually has excellent pedal pulses.) - Neuro Neuro: Alert and oriented X 3, Normal speech - Psych Psych: Normal mood, Normal affect Results - Vitals Vitals: Vital Signs - 24 hr 06/20/18 12:56 Temperature 37.2 C Heart Rate 130 H Respiratory 20 Rate Blood Pressure 98/66 O2 Saturation 96 Oxygen O2 Source Room air - Labs Labs: Microbiology 06/20/18 14:00 Wound Culture - Preliminary Toe - Left Big Laboratory Tests 06/20/18 06/20/18 06/20/18 15:00 15:00 15:00 WBC 9.9 RBC 3.65 L Hgb 11.8 L Hct 34.5 L MCV 94.5 H MCH 32.4 H MCHC 34.3 RDW 16.4 H Plt Count 168 MPV 6.7 L Neut # (Auto) 7.8 H Lymph # (Auto) 0.9 L [place] # (Auto) 1.1 H Eos # (Auto) 0.1 Baso # (Auto) 0.0 Absolute Nucleated RBC 0.00 Nucleated RBC % 0.0 ESR 69 H Sodium 130 L Potassium 4.1 Chloride 98 L Carbon Dioxide 22 Anion Gap 10.0 BUN 16 Creatinine 0.9 Estimated GFR (MDRD) 87 L Glucose 91 Calcium 9.0 Total Bilirubin 1.5 H AST 171 H ALT 43 Alkaline Phosphatase 60 C-Reactive Protein Total Protein 7.7 Albumin 3.9 Globulin 3.8 Albumin/Globulin Ratio 1.0 Lipase 28 06/20/18 15:00 WBC RBC Hgb Hct MCV MCH MCHC RDW Plt Count MPV Neut # (Auto) Lymph # (Auto) [place] # (Auto) Eos # (Auto) Baso # (Auto) Absolute Nucleated RBC Nucleated RBC % ESR Sodium Potassium Chloride Carbon Dioxide Anion Gap BUN Creatinine Estimated GFR (MDRD) Glucose Calcium Total Bilirubin AST ALT Alkaline Phosphatase C-Reactive Protein 22.1 H Total Protein Albumin Globulin Albumin/Globulin Ratio Lipase - Rads (name of study) 3v L foot Radiology: EMP read contemporaneously (Some question of osseous changes in the distal head of the fifth metatarsal concerning for osteomyelitis.) PD MEDICAL DECISION MAKING - ED course ED course: This is a 58-year-old gentleman with a wound on the left great toe in the setting of neuropathy but no history of diabetes. He has cellulitis up to the ankle and imaging is concerning for osteomyelitis. He was cultured up including from the tip of the great toe and blood x2. He was started on vancomycin, he has a history of both regular staph and MRSA from his wound infections and the initial wound culture demonstrates gram-positive cocci in clusters so this is likely staphylococcal. I discussed with him admission to the hospital and he would like to be transferred, patient preference, to [place]. Accepted to [facility] by Dr Xiao at 1634, nba completed. Departure - Departure Disposition: 02 Transfer Acute Care Hosp Clinical Impression: Toe osteomyelitis, left Cellulitis Qualifiers: Site of cellulitis: extremity Site of cellulitis of extremity: lower extremity Laterality: left Qualified Code(s): L03.116 - Cellulitis of left lower limb Condition: Stable
[2018-06-20 15:11] LABS: BASOPHILS % (AUTO) 0.5 %; EOSINOPHILS # (AUTO) 0.1 10^3/uL (0.0-0.7); EOSINOPHILS % (AUTO) 1.4 %; HGB - HEMOGLOBIN 11.8 g/dL (14.0-18.0); LYMPHOCYTES # (AUTO) 0.9 10^3/uL (1.5-3.5); LYMPHOCYTES % (AUTO) 8.8 %; MEAN CORPUSCULAR HEMOGLOBIN 32.4 pg (27.0-31.0); MEAN CORPUSCULAR HGB CONC 34.3 g/dL (32.0-36.0); MEAN CORPUSCULAR VOLUME 94.5 fL (80.0-94.0); MEAN PLATELET VOLUME 6.7 fL (7.4-11.4); MONOCYTES # (AUTO) 1.1 10^3/uL (0.0-1.0); MONOCYTES % (AUTO) 10.7 %; NEUTROPHILS # (AUTO) 7.8 10^3/uL (1.5-6.6); NEUTROPHILS % (AUTO) 78.6 %; PLT - PLATELET COUNT 168 10^3/uL (130-450); RED BLOOD COUNT 3.65 10^6/uL (4.70-6.10); RED CELL DISTRIBUTION WIDTH 16.4 % (12.0-15.0); WHITE BLOOD COUNT 9.9 x10^3/uL (4.8-10.8)
--- NOTE | 2018-06-20 15:11 | XRAY Report ---
Reason: foot infection Procedure Date: 06/20/2018 Accession Number: [id number] / [id number] Procedure: XR - Foot 3 View LT CPT Code: FULL RESULT: EXAM: LEFT FOOT RADIOGRAPHY EXAM DATE: 06/20/2018 02:56 PM. CLINICAL HISTORY: Left foot swelling and redness for 4 days, concern for infection. COMPARISON: Foot 3 views left 09/05/2016 11:56 AM. TECHNIQUE: 3 views. FINDINGS: Bones: The patient is status post interval amputation of the second through fourth toes. Interval development of a lucency in the fifth metatarsal head with subtle sclerotic border, new compared to 2017. No jose associated destruction. No fracture is detected. Joints: Normal. No subluxations. Soft Tissues: Marked soft tissue swelling of the great toe with imaging suggestion of a toe ulcer. IMPRESSION: Marked soft tissue swelling with suggestion of an ulcer in the great toe. No definite osseous destruction of the first ray. Questionable osseous changes in the distal head of the fifth metatarsal which were not seen on the previous radiograph. If there is soft tissue infection in the region of the fifth metatarsophalangeal joint, findings are suspicious for osteomyelitis. RADIA
[2018-06-20 15:23] LABS: ALBUMIN 3.9 g/dL (3.2-5.5); BILIRUBIN,TOTAL 1.5 mg/dL (0.2-1.0); CREATININE 0.9 mg/dL (0.6-1.2); TOTAL PROTEIN 7.7 g/dL (6.7-8.2)
[2018-06-20] MEDS ORDERED: ACETAMINOPHEN 325 MG TABLET PO STA (17:03)
[2018-06-20] MEDS ORDERED: VANCOMYCIN INJ 2 GM in SODIUM CHLORIDE 0.9% 500 ML IV STA (17:23)
[2018-06-20 18:54] VITALS: BP 101/65
== END 2018-06-20 19:05 | disposition short-term general hospital (02) ==
LOC: ED 12:42
DX: M86.9 Osteomyelitis, unspecified (principal); L03.116 Cellulitis of left lower limb; I10 Essential (primary) hypertension; I25.10 Atherosclerotic heart disease of native coronary artery without angina pectoris; I73.9 Peripheral vascular disease, unspecified; Z85.118 Personal history of other malignant neoplasm of bronchus and lung
CPT/HCPCS: 36415; 73630; 80053; 83690; 85025; 85651; 86140; 87040; 87070; 87181; 87205; 96374; 99284; A9270; J3370

== ENCOUNTER 2018-06-20 19:08 | Outpatient (CLI) | payer MEDICAID | END 2018-06-20 19:09 | disposition short-term general hospital (02) | LOC: EMS 19:08 | PROVIDERS: ATTEND Surgery | DX: M86.9 Osteomyelitis, unspecified (principal) | CPT/HCPCS: A0425; A0426; A0999 ==

== ENCOUNTER 2018-07-02 13:30 | Outpatient (CLI) | payer MEDICAID ==
--- NOTE | 2018-07-02 20:38 | CONSULTATION NOTE ---
Palliative Care Follow Up - Referral Referring Provider: Dr. Jodee Castillo Time of Visit: [id number] Referral setting: [facility] Referral Reason: Peripheral neuropathy/Lung Ca with brain mets/osteomyelitis left toe - Information Sources Records reviewed: Previous records reviewed History/Review of Systems obtained from: Patient Exam limitations: No limitations, Clinical condition - History of Present Illness Update Brief HPI Update: This is a feisty 58-year-old gentleman with adenocarcinoma lung originally diagnosed in 2013, with known brain metastases status post CyberKnife at [facility] 02/2017. He had been receiving Pembrolizumab, has been on hold for several months pending outcome of brain MRI and recurrent episodes of pneumonia. This was complicated the patient was able to lay flat for MRI at [facility], in the meantime he was gotten up Port-A-Cath and it got pushed out. He did have a MRI done in the middle of May, I do not have those results but he told me he thought they were negative. He is also had multiple ED visits for weakness, concern for seizures, and community-acquired pneumonia. He continues to have severe peripheral neuropathy, difficult to control despite being on opioids and high doses of gabapentin, and most recently now was admitted on 1227 to [facility] for osteomyelitis of his left toe. Patient has been treated multiple times for cellulitis in that left toe, as well as being seen on and off by the [facility] clinic often determined by patient's compliance with appointments, adequate wound care, and he himself "digging" into toe nail. Patient has had amputation of his second third and fourth toe, he is currently at the [facility] receiving IV antibiotics daptomycin, With the goal to try and save his left toe. ID notes from [facility] report left great toe osteomyelitis with cultures growing staph RS and enterococcus bacillus. ID is involved and is doing a trial of 6 weeks. There was some confusion regarding patient's ability to get wound care at the [facility], patient has not had a recent amputation, he did have some debridement by the adolescent specialist at [facility] with instructions to have follow-up done at the [facility]. On examination, dressing is quite black externally, patient is not change since home. Wound underneath is dry, with multiple divots in it from debriding. Given patient's underlying neuropathy, does have some pain, is more intense pain though is his peripheral neuropathy. Wound was examined with wound care nurse, will go ahead and order [facility] wound care to facilitate and coordinate care. Patient also continued to struggle with COPD, is continue to smoke. He is using his DuoNeb 4 times a day, with productive cough of yellow clear sputum he continues with shortness of breath. He is not drinking as he knows interferes with his antibiotics. He continues with 8-10/10 pain in his lower extremities secondary to peripheral neuropathy attributed to alcohol abuse, PVD, and has generalized osteoarthritis. Continues to have some residual chest pain, though this is improved with the treatment of his pneumonia. Patient currently on gabapentin 1600 mg twice daily, OxyContin 20 mg 3 times daily, and oxycodone 10- 20 mg for breakthrough pain not to exceed 8 tabs in 24 hours. Social History - Living Situation Living arrangement: At home Living Situation: Other Support System: Patient currently living in small apartment with roommate. Has finally started [employer], it sounds like he has a variety of workers. Continues to struggle with transportation, using [employer]rans[employer] but is hoping to transition to [employer]. At this time, his son is been the most active in his care, does have minimal family/psychosocial support. Medications/Allergies - Medications Home Medications: Ambulatory Orders Medication Instructions Recorded Confirmed Lorazepam [Ativan] 1 mg PO Q8HR PRN 09/23/15 07/03/18 Tamsulosin [Flomax] 0.4 mg PO DAILY 06/29/16 07/03/18 Oxycodone HCl 10 - 20 mg PO Q4HR PRN MDD 8 tabs 07/26/17 07/03/18 Sennosides [Senna Lax] 3 - 4 tab PO BID 08/10/17 07/03/18 Lidocaine Ointment 5% [Xylocaine 1 appful TOP PRN PRN 08/20/17 07/03/18 Ointment 5%] Potassium Chloride [K-Dur] 40 meq PO BID 08/30/17 07/03/18 Gabapentin [Neurontin] 1,600 mg PO BID 09/27/17 07/03/18 Levetiracetam [Keppra] 500 mg PO BID #30 tablet 11/23/17 07/03/18 Ondansetron Odt [Zofran Odt] 4 mg TL Q6H PRN #15 tablet 03/19/18 07/03/18 Torsemide 20 mg PO DAILY MDD 40 mg; second 04/26/18 07/03/18 dose prn Budesonide/Formoterol Fumarate 10.2 gm IH BID #1 hfa.aer.ad 05/03/18 07/03/18 [Symbicort 160-4.5 Mcg Inhaler] Ipratropium/Albuterol [Duoneb] 3 ml INH Q4H PRN #120 neb 05/03/18 07/03/18 Oxycodone HCl [Oxycodone HCl ER] 20 mg PO TID 05/03/18 07/03/18 Albuterol Sulf [Ventolin Hfa 2 puffs INH Q4HR PRN 05/09/18 07/03/18 Inhaler] Loperamide [Imodium] 2 mg PO QID PRN 05/09/18 07/03/18 Magnesium Oxide [Magnesium] 400 mg PO DAILY 05/09/18 07/03/18 Melatonin 3 - 6 mg PO QPM PRN 05/09/18 07/03/18 Vitamin B Complex/Folic Acid 1 tab PO DAILY 05/09/18 07/03/18 [Vitamin B-100 Complex Tablet] DAPTOmycin [Daptomycin] 540 mg IV DAILY MDD 6 weeks 07/03/18 07/03/18 - Allergies Allergies/Adverse Reactions: Allergies Allergy/AdvReac Type Severity Reaction Status Date / Time BRONWYN Inhibitors Allergy Emesis Verified 06/20/18 13:00 amoxicillin [From Augmentin] Allergy Emesis Verified 06/20/18 13:00 clavulanic acid Allergy Emesis Verified 06/20/18 13:00 [From Augmentin] lisinopril Allergy "THROAT Verified 06/20/18 13:00 SWELLING" Review of Systems - Constitutional Constitutional: reports: Fatigue. denies: Fever, Chills - Eyes Eyes: reports: Vision loss (severe cataracts) - Ears, Nose & Throat Ears, Nose & Throat: reports: Hearing loss (mild), Nasal congestion, Dental pain - Cardiovascular Cardiovascular: reports: Edema, Decr. exercise tolerance - Respiratory Respiratory: reports: Cough, Sputum production. denies: SOB at rest - Gastrointestinal Gastrointestinal: reports: Constipation (managed with titration of bowel meds), Nausea (intermittent using zofran with relief), Early satiety - Genitourinary Genitourinary: reports: Frequency - Musculoskeletal Musculoskeletal: reports: Muscle pain, Back pain, Muscle aches, Stiffness, Limited range of motion, Muscle weakness, Joint pain, Assistive devices (uses walker; was active in PT now has to offload on toe) - Integumentary Integumentary: reports: Dryness, Other (left great toe wound; right wound dorsum of foot) - Neurological Neurological: reports: General weakness, Numbness (LE), Memory problems - Psychiatric Psychiatric: reports: Depression, Anxiety - Hematologic/Lymphatic Hematologic/Lymphatic: reports: Anemia (hgb 10.6), Recurrent infections (cellulitis/pneumonia) - All Other Systems All Other Systems: reports: Reviewed and negative Physical Exam - Physical Exam General Appearance: positive: Moderate distress, Anxious Eyes Bilateral: positive: Normal inspection ENT: positive: Other (most of teeth gone) Neck: positive: Other (kyphosis with neck / chin to chest) Cardiovascular: positive: Regular rate & rhythm Respiratory: positive: Diminished throughout Skin: positive: Pallor, Wound (see HPI; did not exam dorsum right foot; in hospital records and pateint reported; patient in offload boot) Extremities: positive: Pedal edema (mild over foot; trace up to knees) Neurologic/Psychiatric: positive: Oriented x3, Mood/affect nml, Flat affect Palliative Care - POLST Patient has POLST: No Pain: Pain worsening, Location (LE neuropathies/general achiness/joint and hip pain with new boot) Tiredness/Fatigue: Moderate (4-6) Drowsiness/Sedation: Moderate (4-6) (struggling to keep schedule; doesn't sleep well at night) Nausea: Mild (1-3), With vomiting (occasional) Depression: Moderate (4-6) Anxiety: Severe (7-10) Dyspnea: Moderate (4-6) Anorexia: Mild (1-3) Sleep: Variable sleep pattern Constipation: Yes, Opoid induced, Managed Feelings of wellbeing/Perceived Quality of Life: Fair, Acceptable Performance Status: Patient had been receiving physical therapy, has had a multiple of issues and unable to follow through including repeat ED visits for hyponatremia, CAP, cellulitis. Patient is ambulatory with his walker, is getting assistance from [employer], though does mostly spit baths. Patient reports poor activity tolerance needing frequent rest periods - Palliative Care Discussion: Patient does have underlying anxiety, gets quite anxious and trying to take care of "all the things" on his list. Is trying to stay on top of it, despite fluctuating mood and memory issues. Patient is hoping not to have his toe amputated, at this point is quite committed to following through on his therapy. Treatment for his lung cancer continues to be on hold, will see Dr. Castillo on the . Results - Lab Results Lab results reviewed: Yes Lab and Imaging Results: Patient to get weekly labs, concern for kidney function creatinine 1.4, GFR 52, sodium sitting at 132. Impression and Recommendations - Palliative Care Impression: This is a 58-year-old gentleman with multiple complex comorbidities, recent diagnosis of osteomyelitis of his left toe, recurrent community-acquired pneumonia, known adenocarcinoma of the lung with metastases status post CyberKnife for brain metastases. He also has history of seizures though denies any recent seizure activity. He continues to struggle to manage the complexities of his medical treatment, financial stressors, and ongoing fluctuating social situation. Palliative care continue to try to assist with pain and symptom management and facilitate coordination of care. Recommendations/Counseling Done: 1.Osteomyelitis of his left toe. Due to miscommunication, patient has not received his wound care at [facility]. Examination of the toe, does reveal does need continued treatment. We will go ahead and coordinate and write for orders. He does see ID next week. We will facilitate and get appropriate notes over to wound care for visit tomorrow. Patient is aware on his current daptomycin he is not to drink, reports he has been compliant. Patient actually usually quite honest about his alcohol use. Is also off his Nexium secondary to interactions, he is to see his PCP tomorrow, most likely to get some ranitidine as he is having some rebound reflux. 2. Peripheral neuropathy. This is exacerbated over the last several weeks, we had been decreasing his gabapentin, he is back up to 1600 mg twice daily after hospitalization. He is using topical CBD along with his lidocaine for exacerbations. 3. Pain of neoplastic origin. Patient continues to have intermittent chest discomfort as well as exacerbation of his joint and neck pain. Patient has been compliant with his Dilaudid opioid use, using OxyContin 20 mg 3 times daily, and oxycodone 10-20 mg up to 4 times a day. He is aware he needs to stay within the allotted prescription. Rx for OxyContin provided today. 4. Seizures. Patient reports has had MRI, have not seen the results reports they were negative. Reports seizure-like activity has decreased and has not had any recently. He does use lorazepam if he does feel seizure coming on with good results. 5. COPD. Patient continue to use nebulizer 4 times daily, continues to smoke despite counseling otherwise. Patient reports sputum improving with only light yellow to clear. Chest discomfort improved, do not see in his records he had a chest x-ray, but this point in time does not present with further symptoms of his pneumonia though he has had several rounds of treatment. 6. Advanced care planning. Patient continues to express desires for full code, again is difficult to nail down for Syeda HIGGINBOTHAM, currently is feeling overwhelmed with all his multiple comorbidities. We will continue to provide support and discuss patient's wishes as anxiety allows Time Spent: 45 minutes with greater than 50% of this done in counseling and coordination of care for wound care, pain management, anxiety, and anticipatory guidance
== END 2018-07-02 13:31 | disposition home or self-care (01) ==
LOC: PC 13:30
PROVIDERS: ATTEND Nurse Practitioner Adult Health
DX: Z51.5 Encounter for palliative care (principal); G89.3 Neoplasm related pain (acute) (chronic); D49.1 Neoplasm of unspecified behavior of respiratory system; C79.31 Secondary malignant neoplasm of brain; M86.8X7 Other osteomyelitis, ankle and foot; G62.9 Polyneuropathy, unspecified; R56.9 Unspecified convulsions; J44.9 Chronic obstructive pulmonary disease, unspecified; F17.200 Nicotine dependence, unspecified, uncomplicated; Z79.891 Long term (current) use of opiate analgesic; Z79.51 Long term (current) use of inhaled steroids; Z87.01 Personal history of pneumonia (recurrent)
CPT/HCPCS: 99215

== ENCOUNTER 2018-08-20 03:51 | Outpatient (CLI) | payer MEDICAID | END 2018-08-20 03:52 | disposition critical access hospital (66) | LOC: EMS 03:51 | PROVIDERS: ATTEND Surgery | DX: R25.2 Cramp and spasm (principal) ==

== ENCOUNTER 2018-08-20 04:26 | Emergency (ER) | payer MEDICAID ==
[2018-08-20] MEDS ORDERED: diazePAM 5 MG TABLET PO STA (04:53)
--- NOTE | 2018-08-20 04:56 | ED Physician Documentation ---
PD HPI LOWER EXT INJURY - Stated complaint Stated Complaint: LEG CRAMPS - Chief complaint Chief Complaint: Ext Problem - History obtained from History obtained from: Patient - History of Present Illness PD HPI LOW EXT INJURY LOCATION: Both Type of injury: Other (None) Where injury occurred: Home Timing - onset: How many days ago (3) Timing - duration: Days (3) Timing - details: Gradual onset Pain level max: 3 Pain level now: 3 Severity Comments: Mild Improved by: Meds (Gabapentin) Worsened by: Other (Resting) Associated symptoms: Numbness, Tingling Review of Systems Constitutional: reports: Reviewed and negative Eyes: reports: Reviewed and negative Ears: reports: Reviewed and negative Nose: reports: Reviewed and negative Throat: reports: Reviewed and negative Cardiac: reports: Reviewed and negative Respiratory: reports: Reviewed and negative GI: reports: Reviewed and negative : reports: Reviewed and negative Skin: reports: Reviewed and negative Musculoskeletal: reports: Reviewed and negative Neurologic: reports: Reviewed and negative Psychiatric: reports: Reviewed and negative Endocrine: reports: Reviewed and negative Immunocompromised: reports: Reviewed and negative PD PAST MEDICAL HISTORY - Past Medical History Cardiovascular: Hypertension, Coronary artery disease, Peripheral Vascular Disease Respiratory: COPD, Shortness of breath, Other Neuro: Seizure disorder, Other Endocrine/Autoimmune: None GI: GERD, Chronic constipation, Diverticulitis : Benign prostate hypertrophy, Incontinence, Nocturia, Frequency HEENT: Chronic vision loss Psych: Anxiety Musculoskeletal: Chronic back pain, Other Derm: None - Past Surgical History Past Surgical History: Yes Ortho: Amputation Cardiovascular: Cardiac catheterization Neuro: Craniotomy, Gamma knife - Present Medications Home Medications: Ambulatory Orders Medication Instructions Recorded Confirmed Lorazepam [Ativan] 1 mg PO Q8HR PRN 09/23/15 08/20/18 Tamsulosin [Flomax] 0.4 mg PO DAILY 06/29/16 08/20/18 Oxycodone HCl 10 - 20 mg PO Q4HR PRN MDD 8 tabs 07/26/17 08/20/18 Sennosides [Senna Lax] 3 - 4 tab PO BID 08/10/17 08/20/18 Lidocaine Ointment 5% [Xylocaine 1 appful TOP PRN PRN 08/20/17 08/20/18 Ointment 5%] Potassium Chloride [K-Dur] 40 meq PO BID 08/30/17 08/20/18 Gabapentin [Neurontin] 1,600 mg PO BID 09/27/17 08/20/18 Levetiracetam [Keppra] 500 mg PO BID #30 tablet 11/23/17 08/20/18 Ondansetron Odt [Zofran Odt] 4 mg TL Q6H PRN #15 tablet 03/19/18 08/20/18 Torsemide 20 mg PO DAILY MDD 40 mg; second 04/26/18 08/20/18 dose prn Budesonide/Formoterol Fumarate 10.2 gm IH BID #1 hfa.aer.ad 05/03/18 08/20/18 [Symbicort 160-4.5 Mcg Inhaler] Ipratropium/Albuterol [Duoneb] 3 ml INH Q4H PRN #120 neb 05/03/18 08/20/18 Oxycodone HCl [Oxycodone HCl ER] 20 mg PO TID 05/03/18 08/20/18 Albuterol Sulf [Ventolin Hfa 2 puffs INH Q4HR PRN 05/09/18 08/20/18 Inhaler] Loperamide [Imodium] 2 mg PO QID PRN 05/09/18 08/20/18 Magnesium Oxide [Magnesium] 400 mg PO DAILY 05/09/18 08/20/18 Melatonin 3 - 6 mg PO QPM PRN 05/09/18 08/20/18 Vitamin B Complex/Folic Acid 1 tab PO DAILY 05/09/18 08/20/18 [Vitamin B-100 Complex Tablet] DAPTOmycin [Daptomycin] 540 mg IV DAILY MDD 6 weeks 07/03/18 08/20/18 - Allergies Allergies/Adverse Reactions: Allergies Allergy/AdvReac Type Severity Reaction Status Date / Time BRONWYN Inhibitors Allergy Emesis Verified 08/20/18 04:33 amoxicillin [From Augmentin] Allergy Emesis Verified 08/20/18 04:33 clavulanic acid Allergy Emesis Verified 08/20/18 04:33 [From Augmentin] lisinopril Allergy "THROAT Verified 08/20/18 04:33 SWELLING" - Living Situation Living Situation: reports: Alone Living Arrangement: reports: At home - Social History Does the pt smoke?: Yes Smoking Status: Current every day smoker Does the pt drink ETOH?: Yes Does the pt have substance abuse?: No - Family History Family history: reports: Other (Reviewed and not pertinent) - Immunizations Immunizations are current?: Yes - POLST Patient has POLST: No POLST Status: Other PD ED PE NORMAL - Vitals Vital signs reviewed: Yes - General General: Alert and oriented X 3, No acute distress - HEENT HEENT: PERRL - Neck Neck: Supple, no meningeal sign - Cardiac Cardiac: RRR, No murmur - Respiratory Respiratory: Clear bilaterally - Abdomen Abdomen: Normal bowel sounds, Soft, Non tender, Non distended - Derm Derm: Warm and dry - Extremities Extremities: No deformity - Neuro Neuro: Alert and oriented X 3 - Psych Psych: Normal mood, Normal affect Results - Vitals Vitals: Vital Signs - 24 hr 08/20/18 04:31 Temperature 36.7 C Heart Rate 80 Respiratory 16 Rate Blood Pressure 179/115 H O2 Saturation 98 Oxygen O2 Source Room air PD MEDICAL DECISION MAKING - ED course Complexity details: reviewed results, re-evaluated patient, considered differential, d/w patient ED course: 58-year-old male with restless leg syndrome worse this morning. Given dose of Valium and discharged with primary care follow-up. Departure - Departure Disposition: 01 Home, Self Care Clinical Impression: Restless leg syndrome Condition: Stable Instructions: Restless Leg Syndrome, Restless Legs Syndrome What Do Follow-Up: Your, PCP [Other] Comments: Follow-up with PCP within 24 hours. Return with worsening symptoms.
[2018-08-20 05:11] VITALS: BP 160/72
== END 2018-08-20 05:10 | disposition home or self-care (01) ==
LOC: EDUNIT# → ED 04:26
DX: G25.81 Restless legs syndrome (principal); I73.9 Peripheral vascular disease, unspecified; I10 Essential (primary) hypertension; F17.200 Nicotine dependence, unspecified, uncomplicated
CPT/HCPCS: 99281; 99282; A9270

== ENCOUNTER 2018-08-21 12:29 | Outpatient (CLI) | payer MEDICAID ==
--- NOTE | 2018-08-21 14:50 | CONSULTATION NOTE ---
Palliative Care Follow Up - Referral Referring Provider: Dr. Jodee Castillo Time of Visit: 1115-11:50 Referral setting: [facility] [place] Reason: Peripheral neuropathy/Lung ca with brain mets - Information Sources Records reviewed: Previous records reviewed History/Review of Systems obtained from: Patient Exam limitations: No limitations - History of Present Illness Update Brief HPI Update: This is a feisty 58-year-old gentleman with adenocarcinoma the lung, originally diagnosed in 2013. He had known brain metastases status post [facility] at [facility] in 02/2017. In 2018 he had recurrence of the disease in his right lung, and received pembrolizumab 8 cycles until 03/2018. Patient did have significant side effects of muscular and joint discomfort, Exacerbated by his ongoing difficulties with peripheral vascular disease and recurrent cellulitis in his feet. Patient does have severe peripheral neuropathy attributed to alcohol abuse. Concern regarding recurrent brain metastases, patient finally had an MRI done at [facility] in 06/05/2018 which was stable. His most recent CT scan of his chest, abdomen, and pelvis done 07/30/2018 was stable with actually improved size of his right upper lobe mass and decrease in his mediastinal lymphadenopathy as well. This most likely correlates with improved chest pain and discomfort as well. He is now on surveillance every 3 months, concern of patient being able to tolerate treatment in the future given his multiple other health problems and compliance issues. Patient has finished his IV daptomycin, he was on 6 weeks related to suspected osteomyelitis of his left foot. His wound of his right great toe, is still needs ongoing debridement and intervention. Patient was seen in the ED on 08/20, attributed to restless leg syndrome. In review with patient, reports escalating pain, this is most often exacerbated by his peripheral neuropathy, and he had run out of all pain meds including OxyContin and oxycodone 3 days ago. Patient though denies having any kind of withdrawal symptoms. Patient often runs out of his narcotics early. In review of pain. It is still the severe sharp shooting pain of his neuropathy, he is on 1600 mg of gabapentin twice daily, he continues to have some left chest discomfort and mediastinal pressure, though this is improved some. He is on OxyContin 30 mg 3 times daily as well as up to 80 mg of oxycodone for breakthrough pain, he does have intermittent sharp pain spikes for which he uses his breakthrough pain medication. He reports with the cold weather[place] pain has been more problematic thus is running out of his pain meds. Social History - Living Situation Living arrangement: At home Living Situation: Other (roomate) Support System: Patient currently living in small apartment with roommate, trying to oversee and manage his medical appointments and affairs. He is doing much better with this, but continues to struggle. He does now have [employer] worker, 3 hours 3 times a week. He is though hesitant to have him bathe. His son has been less involved in his care, says he has recently changed jobs. He has been using [employer] for driving, does have access to [employer]. Medications/Allergies - Medications Home Medications: Ambulatory Orders Medication Instructions Recorded Confirmed Lorazepam [Ativan] 1 mg PO Q8HR PRN 09/23/15 08/20/18 Tamsulosin [Flomax] 0.4 mg PO DAILY 06/29/16 08/20/18 Oxycodone HCl 10 - 20 mg PO Q4HR PRN MDD 8 tabs 07/26/17 08/20/18 Sennosides [Senna Lax] 3 - 4 tab PO BID 08/10/17 08/20/18 Lidocaine Ointment 5% [Xylocaine 1 appful TOP PRN PRN 08/20/17 08/20/18 Ointment 5%] Potassium Chloride [K-Dur] 40 meq PO BID 08/30/17 08/20/18 Gabapentin [Neurontin] 1,600 mg PO BID 09/27/17 08/20/18 Levetiracetam [Keppra] 500 mg PO BID #30 tablet 11/23/17 08/20/18 Ondansetron Odt [Zofran Odt] 4 mg TL Q6H PRN #15 tablet 03/19/18 08/20/18 Torsemide 20 mg PO DAILY MDD 40 mg; second 04/26/18 08/20/18 dose prn Budesonide/Formoterol Fumarate 10.2 gm IH BID #1 hfa.aer.ad 05/03/18 08/20/18 [Symbicort 160-4.5 Mcg Inhaler] Ipratropium/Albuterol [Duoneb] 3 ml INH Q4H PRN #120 neb 05/03/18 08/20/18 Oxycodone HCl [Oxycodone HCl ER] 20 mg PO TID 05/03/18 08/20/18 Albuterol Sulf [Ventolin Hfa 2 puffs INH Q4HR PRN 05/09/18 08/20/18 Inhaler] Loperamide [Imodium] 2 mg PO QID PRN 05/09/18 08/20/18 Magnesium Oxide [Magnesium] 400 mg PO DAILY 05/09/18 08/20/18 Melatonin 3 - 6 mg PO QPM PRN 05/09/18 08/20/18 Vitamin B Complex/Folic Acid 1 tab PO DAILY 05/09/18 08/20/18 [Vitamin B-100 Complex Tablet] DAPTOmycin [Daptomycin] 540 mg IV DAILY MDD 6 weeks 07/03/18 08/20/18 - Allergies Allergies/Adverse Reactions: Allergies Allergy/AdvReac Type Severity Reaction Status Date / Time BRONWYN Inhibitors Allergy Emesis Verified 08/20/18 04:33 amoxicillin [From Augmentin] Allergy Emesis Verified 08/20/18 04:33 clavulanic acid Allergy Emesis Verified 08/20/18 04:33 [From Augmentin] lisinopril Allergy "THROAT Verified 08/20/18 04:33 SWELLING" Review of Systems - Constitutional Constitutional: reports: Fatigue, Poor appetite. denies: Fever, Chills - Eyes Eyes: reports: Vision loss (has severe cataracts) - Ears, Nose & Throat Ears, Nose & Throat: reports: Hearing loss (mild), Dental decay - Cardiovascular Cardiovascular: reports: Edema, Exertional dyspnea, Decr. exercise tolerance - Respiratory Respiratory: reports: Cough (treated for bronchitis with z pack 08/14), SOB with exertion - Gastrointestinal Gastrointestinal: reports: Other (difficulty with meal prep). denies: Abdominal pain, Constipation, Nausea - Musculoskeletal Musculoskeletal: reports: Stiffness, Muscle weakness (reports L sided weakness since brain surgery;), Assistive devices (uses cane), Other (difficulty with walking related to amputation of toes on left; has been walking less with cold weather) - Integumentary Integumentary: reports: Dryness, Other (present for wound appointment; healing but still left toe with dark eschar/requiring debriding; callous bottom of left foot; thick fungal peraza) - Neurological Neurological: reports: General weakness, Memory problems (STM but improved from previous visits), Abnormal gait. denies: Seizures - Psychiatric Psychiatric: reports: Depression, Anxiety - Hematologic/Lymphatic Hematologic/Lymphatic: reports: Recurrent infections (finished IV AB for osteomylitis; zpack for bronchitis; has had recurrent pneumonia) - All Other Systems All Other Systems: reports: Reviewed and negative Physical Exam - Vital Signs Pulse Rate: 90 Respiratory Rate: 18 O2 Saturation: 98 (ra @ rest) Blood Pressure: 136/87 - Physical Exam General Appearance: positive: Mild distress, Anxious (did run out of pain pills 3 days early; using lorazepam 1-2 times a day for nighttime anxiety) Eyes Bilateral: positive: Normal inspection ENT: positive: Other (poor dental / gum health) Neck: positive: Trachea midline, Other (kyphotic) Cardiovascular: positive: Regular rate & rhythm Respiratory: positive: Diminished throughout, Rhonchi (RLL clear with cough), Other (patient continues to smoke). negative: Wheezes, Rales Abdomen: positive: Non-tender, Soft, Nml bowel sounds Skin: positive: Pallor, Dryness, Wound Extremities: positive: No pedal edema Neurologic/Psychiatric: positive: Mood/affect nml, Disoriented to time, Weakness, Flat affect Palliative Care - POLST Patient has POLST: No Pain: Pain worsening, Comment (see HPI. Patient supplements pain management with topical CBD, aspercreme and lidocaine with temporary relief) Tiredness/Fatigue: Moderate (4-6) Drowsiness/Sedation: Moderate (4-6) Nausea: None Depression: Mild (1-3) Anxiety: Severe (7-10) Dyspnea: Moderate (4-6) Anorexia: Moderate (4-6) Sleep: Sleeps poorly Constipation: Intermittent constipation Feelings of wellbeing/Perceived Quality of Life: Fair, Acceptable, No change Performance Status: Patient does now received assistance with household tasks, assistance with personal care and has found this to be of benefit. He is resistant to letting the caregiver provide bathing in the shower, with the cold weather he has not been ambulating as much. He does report he has been much more sedentary and attributes this to adding to his deconditioning as well as his pain syndrome. Recent previous to his diagnosis of pneumonia and osteomylitis a couple months ago, was actually doing fairly well functionally Unable to ambulate just with a cane for longer periods of distance. And was walking on a regular basis. - Palliative Care Discussion: Patient continues to struggle with his multiple medical problems, appointments, and managing his own affairs. He does admit to increased isolation and tendency towards depression particularly now he is not having daily interaction for his IV infusions. He is quite isolated, though he has roommate, they are not "friends" but do get along. Impression and Recommendations - Palliative Care Impression: This is a 58-year-old gentleman with multiple complex comorbidities, known adenocarcinoma of the lung with metastases, recurrent community-acquired pneumonia, recent diagnosis of bronchitis, and recently treated osteomyelitis of his left toe. He continues to struggle to manage the complexity of his medical treatment, financial stressors, and ongoing fluctuating social situation. Palliative care continued just to try to assist with pain and symptom management and facilitate coordination of care. Recommendations/Counseling Done: 11. Peripheral neuropathy. This is continue to be exacerbated on and off over the last several weeks. To 1600 mg twice daily of gabapentin. He is using a variety of topicals with intermittent relief of exacerbations. Discussed in the context of moving forward, would recommend when wound healed, to consider restarting physical therapy. Patient does do better and does admit when he is walking more regularly. 2. Pain of neoplastic origin. Patient's chest discomfort is improved, his CT scan does show some decrease of his tumor burden. Patient is on oxycodone, using 20 mg 3 times daily and oxycodone up to 80 mg a day. He continues to struggle with than his allotted prescription, he is aware we are not going to increase this. He does present with symptoms of opioid use disorder, but has remained in agreement with her current dosing regimen 3. Anorexia. Patient continues to struggle with meal prep, encouraged to follow-up on considering implementing Meals on Wheels. Various before had included not having a stable environment. Patient is well connected to the [facility], encouraged him to follow through as well as to explore ensure. Patient reports he is taking 1-2 Ensure a day, but often runs out secondary to cost. 4. COPD. Patient using nebulizer about twice a day, he continues to smoke despite counseling otherwise. He does feel if things stabilize out, he could try and cut back again. But he gets very anxious. He has had recurrent pneumonia, and most recently bronchitis. He has just completed a Z-Eris. 5. Osteomyelitis of left toe. Patient has completed his IV antibiotics, he is getting monitored by wound care weekly, including debridement. Patient recommended to follow-up with Dr. drake both for orthotics to offload where patient is getting recurrent callus, as well as address thick fungal nail. Patient does report he is going to follow through on this. 6. Advanced care planning. Patient continues to feel overwhelmed, patient with high anxiety did not address at this visit today.. Time Spent: Time spent 35 minutes with getting 50% of this counseling provided regarding pain and symptom management, encouragement of follow-through on bathing, Meals on Wheels, podiatry appointment. Rx provided for oxycodone 10 mg tabs. Patient expected to have visit next week, will arrange for OxyContin prescription to be available.
== END 2018-08-21 12:30 | disposition home or self-care (01) ==
LOC: PC 12:29
PROVIDERS: ATTEND Nurse Practitioner Adult Health
DX: Z51.5 Encounter for palliative care (principal); G62.1 Alcoholic polyneuropathy; F10.10 Alcohol abuse, uncomplicated; G89.3 Neoplasm related pain (acute) (chronic); C34.11 Malignant neoplasm of upper lobe, right bronchus or lung; F63.0 Pathological gambling; I73.9 Peripheral vascular disease, unspecified; J44.9 Chronic obstructive pulmonary disease, unspecified; M86.9 Osteomyelitis, unspecified; L84 Corns and callosities; B35.1 Tinea unguium; F41.9 Anxiety disorder, unspecified; I10 Essential (primary) hypertension; R59.0 Localized enlarged lymph nodes; Z85.89 Personal history of malignant neoplasm of other organs and systems; Z79.899 Other long term (current) drug therapy; Z72.0 Tobacco use; Z87.01 Personal history of pneumonia (recurrent); Z59.6 Low income; Z79.891 Long term (current) use of opiate analgesic
CPT/HCPCS: 99214

== ENCOUNTER 2018-08-26 19:44 | Outpatient (CLI) | payer MEDICAID | END 2018-08-26 19:45 | disposition critical access hospital (66) | LOC: EMS 19:44 | PROVIDERS: ATTEND Surgery | DX: R06.02 Shortness of breath (principal) ==

== ENCOUNTER 2018-08-26 20:20 | Emergency (ER) | payer MEDICAID ==
--- NOTE | 2018-08-26 21:12 | ED Physician Documentation ---
PD HPI DYSPNEA - Stated complaint Stated Complaint: SOA LAST FEW DAYS - Chief complaint Chief Complaint: Resp - History obtained from History obtained from: Patient, EMS - History of Present Illness Timing - onset: How many days ago (3) Timing - duration: Days (3) Timing - details: Gradual onset, Waxing and waning Inciting event(s): Out of meds (torsemide x 1 week) Associated symptoms: Cough, Wheezing, Bilateral edema. No: Fever, Hemoptysis, Chest pain / discomfort, Palpitations, Diaphoresis, Unilateral edema Recently seen: Emergency Dept (T+R approximately 1 week ago from this ED for leg cramps) - Additional information Additional information: c/o 3 days of generalized weakness, tremulous/"shaky", sore throat, dyspnea, [employer] cough. He has been out of torsemide x 1 week Review of Systems Constitutional: reports: Myalgias, Fatigue. denies: Fever, Chills, Sweats Throat: reports: Sore throat Cardiac: reports: Pedal edema. denies: Chest pain / pressure, Palpitations, Calf pain Respiratory: reports: Dyspnea, Wheezing. denies: Cough GI: reports: Reviewed and negative PD PAST MEDICAL HISTORY - Past Medical History Cardiovascular: Hypertension, Coronary artery disease, Peripheral Vascular Disease Respiratory: COPD, Shortness of breath, Other Neuro: Seizure disorder, Other Endocrine/Autoimmune: None GI: GERD, Chronic constipation, Diverticulitis : Benign prostate hypertrophy, Incontinence, Nocturia, Frequency HEENT: Chronic vision loss Psych: Anxiety Musculoskeletal: Chronic back pain, Other Derm: None - Past Surgical History Past Surgical History: Yes Ortho: Amputation Cardiovascular: Cardiac catheterization Neuro: Craniotomy, Gamma knife - Present Medications Home Medications: Ambulatory Orders Medication Instructions Recorded Confirmed Lorazepam [Ativan] 1 mg PO Q8HR PRN 09/23/15 08/20/18 Tamsulosin [Flomax] 0.4 mg PO DAILY 06/29/16 08/20/18 Oxycodone HCl 10 - 20 mg PO Q4HR PRN MDD 8 tabs 07/26/17 08/27/18 Sennosides [Senna Lax] 3 - 4 tab PO BID 08/10/17 08/20/18 Lidocaine Ointment 5% [Xylocaine 1 appful TOP PRN PRN 08/20/17 08/20/18 Ointment 5%] Potassium Chloride [K-Dur] 40 meq PO BID 08/30/17 08/27/18 Gabapentin [Neurontin] 1,600 mg PO BID 09/27/17 08/27/18 Levetiracetam [Keppra] 500 mg PO BID #30 tablet 11/23/17 08/27/18 Ondansetron Odt [Zofran Odt] 4 mg TL Q6H PRN #15 tablet 03/19/18 08/27/18 Torsemide 20 mg PO DAILY MDD 40 mg; second 04/26/18 08/27/18 dose prn Budesonide/Formoterol Fumarate 10.2 gm IH BID #1 hfa.aer.ad 05/03/18 08/20/18 [Symbicort 160-4.5 Mcg Inhaler] Ipratropium/Albuterol [Duoneb] 3 ml INH Q4H PRN #120 neb 05/03/18 08/27/18 Oxycodone HCl [Oxycodone HCl ER] 20 mg PO TID 05/03/18 08/27/18 Albuterol Sulf [Ventolin Hfa 2 puffs INH Q4HR PRN 05/09/18 08/27/18 Inhaler] Loperamide [Imodium] 2 mg PO QID PRN 05/09/18 08/20/18 Magnesium Oxide [Magnesium] 400 mg PO DAILY 05/09/18 08/20/18 Melatonin 3 - 6 mg PO QPM PRN 05/09/18 08/20/18 Vitamin B Complex/Folic Acid 1 tab PO DAILY 05/09/18 08/20/18 [Vitamin B-100 Complex Tablet] DAPTOmycin [Daptomycin] 540 mg IV DAILY MDD 6 weeks 07/03/18 08/20/18 - Allergies Allergies/Adverse Reactions: Allergies Allergy/AdvReac Type Severity Reaction Status Date / Time BRONWYN Inhibitors Allergy Emesis Verified 08/26/18 20:28 amoxicillin [From Augmentin] Allergy Emesis Verified 08/26/18 20:28 clavulanic acid Allergy Emesis Verified 08/26/18 20:28 [From Augmentin] lisinopril Allergy "THROAT Verified 08/26/18 20:28 SWELLING" - Social History Does the pt smoke?: Yes Smoking Status: Current every day smoker Does the pt drink ETOH?: Yes Does the pt have substance abuse?: No - Immunizations Immunizations are current?: Yes - POLST Patient has POLST: No POLST Status: Other PD ED PE NORMAL - Vitals Vital signs reviewed: Yes - General General: Alert and oriented X 3, No acute distress, Well developed/nourished - HEENT HEENT: Moist mucous membranes - Neck Neck: Supple, no meningeal sign - Cardiac Cardiac: RRR, No murmur - Respiratory Respiratory: No respiratory distress - Abdomen Abdomen: Soft, Non tender - Back Back: No CVA TTP - Derm Derm: Normal color, Warm and dry, No rash - Extremities Extremities: Other (BLE pitting edema) - Neuro Neuro: Alert and oriented X 3 PD ED PE EXPANDED - Respiratory Respiratory: Rales (bilateral bases), Decreased breath sounds Results - Vitals Vitals: Oxygen O2 Source Room air - EKG (time done) No standard instances Rate: Rate (enter#) (105), Tachy Rhythm: NSR [place]: Normal Intervals: Normal IN Ischemia: Normal ST segments - Labs Labs: Microbiology 08/26/18 22:01 Group A Strep Throat Culture - Final Throat MIXED OROPHARYNGEAL CAMRYN PRESENT. NO BETA STREP PRESENT IN CULTURE. Laboratory Tests 08/26/18 08/26/18 08/26/18 21:57 21:57 21:57 WBC 7.0 RBC 3.92 L Hgb 12.0 L Hct 35.2 L MCV 89.8 MCH 30.7 MCHC 34.2 RDW 15.4 H Plt Count 196 MPV 6.7 L Neut # (Auto) 5.3 Lymph # (Auto) 0.9 L [place] # (Auto) 0.7 Eos # (Auto) 0.1 Baso # (Auto) 0.0 Absolute Nucleated RBC 0.00 Nucleated RBC % 0.0 Sodium 132 L Potassium 4.5 Chloride 96 L Carbon Dioxide 25 Anion Gap 11.0 BUN 8 Creatinine 0.8 Estimated GFR (MDRD) 100 Glucose 111 H Calcium 9.3 Troponin I < 0.04 B-Natriuretic Peptide Influenza A (Rapid) Influenza B (Rapid) Group A Strep Rapid 08/26/18 08/26/18 08/26/18 21:57 22:01 22:01 WBC RBC Hgb Hct MCV MCH MCHC RDW Plt Count MPV Neut # (Auto) Lymph # (Auto) [place] # (Auto) Eos # (Auto) Baso # (Auto) Absolute Nucleated RBC Nucleated RBC % Sodium Potassium Chloride Carbon Dioxide Anion Gap BUN Creatinine Estimated GFR (MDRD) Glucose Calcium Troponin I B-Natriuretic Peptide 73 Influenza A (Rapid) Negative Influenza B (Rapid) Negative Group A Strep Rapid Negative - Rads (name of study) chest xray Radiology: Prelim report reviewed, See rad report PD MEDICAL DECISION MAKING - ED course Complexity details: reviewed results, re-evaluated patient, considered differential, d/w patient ED course: On reevaluation, reported improvement after torsemide and prednisone. Mild bi basilar rales, improved from initial exam. Departure - Departure Disposition: 01 Home, Self Care Clinical Impression: Dyspnea Qualifiers: Dyspnea type: unspecified Qualified Code(s): R06.00 - Dyspnea, unspecified Condition: Good Instructions: ED Dyspnea Shortness of Breath Follow-Up: Noy Hunter ARNP [Primary Care Provider] - Discharge Date/Time: 08/27/18 02:01
[2018-08-26] MEDS ORDERED: predniSONE 20 MG TABLET PO STA (21:46)
[2018-08-26] MEDS ORDERED: TORSEMIDE 20 MG TABLET PO STA (21:46)
[2018-08-26 22:13] LABS: BASOPHILS % (AUTO) 0.5 %; EOSINOPHILS # (AUTO) 0.1 10^3/uL (0.0-0.7); EOSINOPHILS % (AUTO) 1.1 %; LYMPHOCYTES # (AUTO) 0.9 10^3/uL (1.5-3.5); LYMPHOCYTES % (AUTO) 13.4 %; MEAN CORPUSCULAR HEMOGLOBIN 30.7 pg (27.0-31.0); MEAN CORPUSCULAR HGB CONC 34.2 g/dL (32.0-36.0); MEAN CORPUSCULAR VOLUME 89.8 fL (80.0-94.0); MEAN PLATELET VOLUME 6.7 fL (7.4-11.4); MONOCYTES # (AUTO) 0.7 10^3/uL (0.0-1.0); MONOCYTES % (AUTO) 9.2 %; NEUTROPHILS # (AUTO) 5.3 10^3/uL (1.5-6.6); NEUTROPHILS % (AUTO) 75.8 %; PLT - PLATELET COUNT 196 10^3/uL (130-450); RED BLOOD COUNT 3.92 10^6/uL (4.70-6.10); RED CELL DISTRIBUTION WIDTH 15.4 % (12.0-15.0)
[2018-08-26 22:25] LABS: CALCIUM 9.3 mg/dL (8.5-10.3)
--- NOTE | 2018-08-26 22:29 | XRAY Report ---
Reason: cough, dyspnea Procedure Date: 08/26/2018 Accession Number: [id number] / [id number] Procedure: XR - Chest 2 View X-Ray CPT Code: 93130 FULL RESULT: EXAM: CHEST RADIOGRAPHY EXAM DATE: 08/26/2018 10:08 PM. CLINICAL HISTORY: Cough, dyspnea. COMPARISON: CHEST 2 VIEW 06/17/2018 11:41 AM ABDOMEN/PELVIS W/ 07/30/2018 2:18 PM CHEST W07/30/2018 2:18 PM. TECHNIQUE: 2 views. FINDINGS: Lungs/Pleura: Areas of reticular opacity are again seen within the lower lungs. No evidence of acute infiltrate. There are small bilateral pleural effusions. No pneumothorax. Mediastinum: Heart size is within normal limits. Other: Left Port-A-Cath tip projects over the mid SVC. There are remote right-sided rib fractures. IMPRESSION: 1. Areas of reticular opacity within the mid and lower lungs are relatively stable. 2. There are small bilateral pleural effusions. 3. No evidence of pneumothorax. RADIA
[2018-08-26 22:52] LABS: CREATININE 0.8 mg/dL (0.6-1.2)
[2018-08-27 01:16] VITALS: BP 120/63
== END 2018-08-27 02:01 | disposition home or self-care (01) ==
LOC: EDUNIT# → ED 20:20
DX: R06.00 Dyspnea, unspecified (principal); I10 Essential (primary) hypertension; J44.9 Chronic obstructive pulmonary disease, unspecified; F17.200 Nicotine dependence, unspecified, uncomplicated
CPT/HCPCS: 36415; 71046; 80048; 83880; 84484; 85025; 87070; 87275; 87276; 87430; 93005; 99283; A9270; J7512

== ENCOUNTER 2018-09-24 11:45 | Outpatient (CLI) | payer MEDICAID | END 2018-09-24 23:59 | disposition home or self-care (01) | LOC: LAB.R 11:45 | PROVIDERS: ATTEND Nurse Practitioner Family | DX: L97.529 Non-pressure chronic ulcer of other part of left foot with unspecified severity (principal) | CPT/HCPCS: 87070; 87075; 87147; 87186; 87205 ==

== ENCOUNTER 2018-10-04 13:13 | Outpatient (CLI) | payer MEDICAID ==
--- NOTE | 2018-10-04 17:03 | CONSULTATION NOTE ---
Palliative Care Follow Up - Referral Referring Provider: Dr. Jodee Castillo Time of Visit: [id number] Referral setting: [facility] Referral Reason: Acute on Chronic Pain/Metastatic Lung Cancer with brain mets - Information Sources Records reviewed: Previous records reviewed History/Review of Systems obtained from: Patient Exam limitations: No limitations - History of Present Illness Update Brief HPI Update: This is a feisty 58-year-old gentleman with adenocarcinoma of the lung, originally diagnosed in 2013. He has known brain metastases status post [facility] in 02/2017. In 2018 he had recurrence of disease in his right lung, and has received pembrolizumab 8 cycles total until 03/2018. He has been on surveillance since this time, with seemingly stable disease. He does though have multiple other comorbidities, including severe peripheral neuropathy attributed to his alcohol abuse, suspected osteomyelitis of his left foot, for which she is received IV antibiotics and continues to get wound care support. He also has had multiple exacerbations of his COPD including visits to the ED, has been treated intermittently with antibiotics and prednisone. Palliative care continues to follow him related to his pain. Patient with very poor social support, continues alcohol consumption, though reports is only 2-3 beers a day, and as of note has gained probably 20 pounds over the last several months. Patient's pain is mostly 10 out of 10 in his lower extremities, related to severe peripheral neuropathy. He had titrated himself back to 1200 mg twice daily, as he was frightened that there would be a drug shortage and need to titrate off. Assured gabapentin is not the medication were having difficulty with, indeed the day unable to locate any OxyContin for which she has to have refilled at 20 mg 3 times daily today. His regular regimen is 20 mg extended relief 3 times daily, with oxycodone 10 mg tabs up to 8 tabs daily. Patient often has difficulty with pacing has opioid use, but is staying compliant with allotted amounts. Patient's other source of pain in his right upper chest area, this fluctuates as well, has not exacerbated over the last several months and states somewhat stable. It really is his lower extremity peripheral neuropathy that fluctuates in severity. Patient's other symptom burden includes intermittent insomnia, severe anxiety, mild depression, intermittent nausea, shortness of breath with activity and moderate fatigue. Social History - Living Situation Living arrangement: At home Living Situation: Other (with roomate) Support System: Patient lives in apartment [facility], with a roommate. He does oversee his own care, though this gets complicated and overwhelming for him. He does have friends and families that help occasionally, but has minimal reliable support Medications/Allergies - Medications Home Medications: Ambulatory Orders Medication Instructions Recorded Confirmed Lorazepam [Ativan] 1 mg PO Q8HR PRN 09/23/15 10/04/18 Tamsulosin [Flomax] 0.4 mg PO DAILY 06/29/16 10/04/18 Oxycodone HCl 10 - 20 mg PO Q4HR PRN MDD 8 tabs 07/26/17 10/04/18 Sennosides [Senna Lax] 3 - 4 tab PO BID 08/10/17 10/04/18 Lidocaine Ointment 5% [Xylocaine 1 appful TOP PRN PRN 08/20/17 10/04/18 Ointment 5%] Potassium Chloride [K-Dur] 40 meq PO BID 08/30/17 10/04/18 Gabapentin [Neurontin] 1,600 mg PO BID 09/27/17 10/04/18 Levetiracetam [Keppra] 500 mg PO BID #30 tablet 11/23/17 10/04/18 Ondansetron Odt [Zofran Odt] 4 mg TL Q6H PRN #15 tablet 03/19/18 10/04/18 Torsemide 20 mg PO DAILY MDD 40 mg; second 04/26/18 10/04/18 dose prn Budesonide/Formoterol Fumarate 10.2 gm IH BID #1 hfa.aer.ad 05/03/18 10/04/18 [Symbicort 160-4.5 Mcg Inhaler] Ipratropium/Albuterol [Duoneb] 3 ml INH Q4H PRN #120 neb 05/03/18 10/04/18 Albuterol Sulf [Ventolin Hfa 2 puffs INH Q4HR PRN 05/09/18 10/04/18 Inhaler] Loperamide [Imodium] 2 mg PO QID PRN 05/09/18 10/04/18 Magnesium Oxide [Magnesium] 400 mg PO DAILY 05/09/18 10/04/18 Melatonin 3 - 6 mg PO QPM PRN 05/09/18 10/04/18 Vitamin B Complex/Folic Acid 1 tab PO DAILY 05/09/18 10/04/18 [Vitamin B-100 Complex Tablet] Morphine Sulfate ER [Ms Contin] 30 mg PO TID 10/04/18 10/04/18 Nystatin 5 ml PO QID 10/04/18 10/04/18 Sulfamethox/Trimeth 800/160 1 tab PO BID 10/04/18 10/04/18 [Bactrim Ds] diphenhydrAMINE [Benadryl] 25 mg PO Q6HR PRN 10/04/18 10/04/18 - Allergies Allergies/Adverse Reactions: Allergies Allergy/AdvReac Type Severity Reaction Status Date / Time BRONWYN Inhibitors Allergy Emesis Verified 09/13/18 11:18 amoxicillin [From Augmentin] Allergy Emesis Verified 09/13/18 11:18 clavulanic acid Allergy Emesis Verified 09/13/18 11:18 [From Augmentin] lisinopril Allergy "THROAT Verified 09/13/18 11:18 SWELLING" Review of Systems - Constitutional Constitutional: reports: Fatigue, Weight gain (248; reports eating too many danishes). denies: Fever, Chills - Eyes Eyes: reports: Vision loss (has severe cataracts; doesn't have transportation to get appointments off [facility]) - Ears, Nose & Throat Ears, Nose & Throat: reports: Hearing loss (mild), Hoarseness, Dental decay, Dry mouth, Other (c/o yeast as started AB again) - Cardiovascular Cardiovascular: reports: Chest pain (located right of sternum; baseline flucutates 20-60 minutes), Decr. exercise tolerance - Respiratory Respiratory: reports: Cough, Sputum production (clear sputum; thick in am; co ntinues to c/o "bronchitis"), SOB with exertion. denies: Orthopnea, SOB at rest - Gastrointestinal Gastrointestinal: reports: Constipation (patient has not been able to afford bowel medications; intermittent constipation continues), Nausea (intermittent), Good appetite. denies: Reflux/heartburn - Genitourinary Genitourinary: reports: Urgency - Musculoskeletal Musculoskeletal: reports: Muscle pain, Back pain, Muscle aches, Stiffness, Limited range of motion, Muscle weakness, Joint pain, Joint swelling, Assistive devices (uses cane) - Integumentary Integumentary: reports: Dryness, Other (getting wound care for left toe wound; recently treated for positive culture) - Neurological Neurological: reports: General weakness, Memory problems, Abnormal gait - Psychiatric Psychiatric: reports: Depression, Anxiety, Aggitation - Endocrine Endocrine: reports: Intolerance to cold - Hematologic/Lymphatic Hematologic/Lymphatic: reports: Recurrent infections - All Other Systems All Other Systems: reports: Reviewed and negative Physical Exam - Vital Signs Pulse Rate: 92 Respiratory Rate: 20 O2 Saturation: 96 (ra @ rest) Blood Pressure: 131/85 - Physical Exam General Appearance: positive: Mild distress, Anxious (worried about getting oxycontin; no pharmacies have it; ran out a couple of days ago) Eyes Bilateral: positive: Normal inspection ENT: positive: Pharyngeal erythema, Other (no candidiasis noted; reports sc rapped tongue so better but knows he has it; does have nystatin RX already) Neck: positive: Trachea midline, Other (kyphosis of cervical spine; reports difficulty sleeping) Cardiovascular: positive: Regular rate & rhythm Respiratory: positive: No respiratory distress, Diminished in bases. negative: Wheezes, Rales, Rhonchi Abdomen: positive: Distended (this is new for him; has gained about 20 + pounds), Taut, Obese Skin: positive: Pallor, Dryness, Wound (left toe wound; seeing WOCN) Extremities: positive: Pedal edema (trace pedal edema; wearing wraps; improved today) Neurologic/Psychiatric: positive: Oriented x3, Flat affect Palliative Care - POLST Patient has POLST: No POLST Status: Full Code Pain: Pain unchanged, Location (Patient on oxycodone 10 mg tabs, often overuses 8 designated for 24 hours. Reports has had increased leg pain, had decreased his gabapentin to 1200 twice daily, was worried they were going to stop making it, and need to titrate down. Ran out of his OxyContin 20 mg 3 times daily a couple days ago, was going to get new prescription at [facility], as [facility] not [facility] it. Pain continues to be severe peripheral neuropathy in his lower legs and feet, intermittent left chest and rib pain and right upper thoracic pain. Reports when he is taking all his medications, his pain control is adequate, it does get exacerbated when he is more active, has lower extremity swelling, or overdoes. He is easily overwhelmed and often runs out of his meds early.) Tiredness/Fatigue: Severe (7-10) Drowsiness/Sedation: Mild (1-3) Nausea: Moderate (4-6) Depression: Moderate (4-6) Anxiety: Moderate (4-6) Dyspnea: Mild (1-3) Anorexia: None Sleep: Variable sleep pattern Constipation: Yes, Opoid induced, Unmanaged Feelings of wellbeing/Perceived Quality of Life: Fair, Acceptable, No change Performance Status: Patient is able to ambulate short distances with his cane, is most often limited by dyspnea and fatigue as well as his lower extremity peripheral neuropathy. He does have CO PES, but does assist with household tasks. Patient is mostly sedentary in his home setting. Patient has participated in physical therapy in the past, currently with his toe infection, this is not been continued. - Palliative Care Discussion: Patient continues to be a challenge and overwhelmed with his multiple medical needs and appointments as well as tracking his medications. He remains quite anxious about his quality of life, he does remain isolated. His son who had been providing most of his support, is working full-time and less available. He continues to be resistant to talking about any end-of-life planning, and feels like he is doing quite well at this point in time. Patient has continue to chose to be full code with interface with the medical system. Impression and Recommendations - Palliative Care Impression: This is a 58-year-old gentleman with multiple complex comorbidities, known adenocarcinoma of lung with metastases, recurrent bronchitis and COPD exacerbation, and recurrent infection of his left toe. His baseline COPD, CHF, severe peripheral neuropathy, CKD, add to the complex picture. Palliative care continues to try to assist with pain and symptom management and facilitate coordination of care. Recommendations/Counseling Done: 1. Peripheral neuropathy. This continues to exacerbate, he had decreased his gabapentin to 1200 twice daily, given the severity of his pain, and the fact he uses his opioids at times to medicate his neuropathy, instructed him to continue at the 1600 mg. Reassured this is not the drug that is in shortage right now. Patient still needing debridement and weekly wound care, at the point of time this is healed, would recommend moving forward with recent starting physical therapy. 2. Pain of neoplastic origin. Patient's chest discomfort, pain severity is stable. Patient has been using OxyContin 20 mg 3 times daily, with oxycodone allotted 80 mg a day. [place] been on OxyContin versus MS Contin secondary to pruritus. Patient denies any acute allergic reaction, reports he will use Benadryl if becomes problematic, and will discontinue if any severe reactions. 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 3. Weight gain. Patient admits to poor dietary choices, including eating a lot of [place]kin[place]. Patient does present with obese abdomen, is firm in nature, does not appear to be acetic. Patient struggles with meal prep related to financial stressors as well as being able to follow through on shopping. 4. COPD. Patient using nebulizer 2-4 times a day, continues to smoke despite counseling otherwise. Has been on multiple medications and prednisone to manage. Patient gets very anxious with any shortness of breath. 5.Constipation. Patient continues to struggle with constipation, he has in the past been able to titrate MiraLAX and senna with good results. His insurance no longer covers the senna per his report, did send prescription to [facility] to help him obtain. He reports he cannot read the labels off the shelf, and no one is been willing to assist him. He is using friends of friends for medication support, reiterated if unable to obtain the appropriate medicines, to please contact and will look at his formulary again. Senna had been covered in the past. 5. Advanced care planning. Patient continues to present with high anxiety regarding any kind of long-term planning. Patient's current goals are to revisit cataract surgery, as this is a huge quality of life issue for him. Unfortunately no one on the [facility] takes his insurance, and he has transportation issues to go off [facility]. Time Spent: 50 minutes with greater than 50% of this done in counseling regarding pain and symptom management, goals of care, anticipatory guidance and psychosocial support
== END 2018-10-04 13:14 | disposition home or self-care (01) ==
LOC: PC 13:13
PROVIDERS: ATTEND Nurse Practitioner Adult Health
DX: Z51.5 Encounter for palliative care (principal); G62.9 Polyneuropathy, unspecified; G89.3 Neoplasm related pain (acute) (chronic); R63.5 Abnormal weight gain; J44.9 Chronic obstructive pulmonary disease, unspecified; K59.03 Drug induced constipation; T40.2X5A Adverse effect of other opioids, initial encounter; C34.90 Malignant neoplasm of unspecified part of unspecified bronchus or lung; C79.31 Secondary malignant neoplasm of brain; F17.200 Nicotine dependence, unspecified, uncomplicated; L08.9 Local infection of the skin and subcutaneous tissue, unspecified
CPT/HCPCS: 99215

== ENCOUNTER 2018-11-05 12:47 | Outpatient (CLI) | payer MEDICAID ==
[2018-11-05] MEDS ORDERED: IOVERSOL 320 50 ML VIAL ONE (12:57)
[2018-11-05] MEDS ORDERED: IOVERSOL 320 100 ML VIAL IVP ONE ×2 (12:57→14:38)
[2018-11-05] MEDS ORDERED: IOVERSOL 320 50 ML VIAL PO ONE (14:38)
--- NOTE | 2018-11-06 08:37 | CT Report ---
Reason: MALIGNANT NEOPLASM OF UPPER LOBE, RIGHT BRONCHUS O Procedure Date: 11/05/2018 Accession Number: [id number] / [id number] Procedure: CT - Abdomen/Pelvis W CPT Code: FULL RESULT: EXAM: CT ABDOMEN AND PELVIS EXAM DATE: 11/05/2018 02:10 PM. CLINICAL HISTORY: Malignant neoplasm of upper lobe, right bronchus, pain. COMPARISONS: ABDOMEN/PELVIS W/ 07/30/2018 2:18 PM. TECHNIQUE: Routine helical CT imaging was performed through the abdomen and pelvis. IV contrast: 100 cc Optiray 320 contrast. Enteric contrast: Yes. Reconstructions: Coronal and sagittal. In accordance with CT protocol optimization, one or more of the following dose reduction techniques were utilized for this exam: automated exposure control, adjustment of mA and/or KV based on patient size, or use of iterative reconstructive technique. FINDINGS: Lung Bases: Dictated separately; please see chest dictation same date. Liver: Normal. No masses. Gallbladder/Bile Ducts: Unremarkable. Spleen: Normal. Pancreas: Normal. Adrenal Glands: Normal. Kidneys: Normal. No masses or hydronephrosis. Peritoneal Cavity/Bowel: There is a stable, large left inguinal hernia containing mesenteric fat and long loop of sigmoid colon without evidence of obstruction or incarceration. Stable diastases recti. No free fluid, free air or adenopathy. No masses or acute inflammatory process. The appendix is well visualized and normal. Pelvic Organs: Normal. The bladder and visualized pelvic organs are within normal limits. Vasculature: No aneurysms or other significant abnormality. Bones: Stable compression fracture superior endplate of L4. Other: None. IMPRESSION: 1. No evidence of intra-abdominal metastases. 2. Stable large left inguinal hernia containing mesenteric fat and non-incarcerated sigmoid colon. RADIA
--- NOTE | 2018-11-06 08:45 | CT Report ---
Reason: MALIGNANT NEOPLASM OF UPPER LOBE, RIGHT BRONCHUS O Procedure Date: 11/05/2018 Accession Number: [id number] / [id number] Procedure: CT - CHEST W CPT Code: FULL RESULT: EXAM: CT CHEST EXAM DATE: 11/05/2018 02:10 PM. CLINICAL HISTORY: Malignant neoplasm of upper lobe, right bronchus. COMPARISONS: CHEST W/ 03/26/2018 1:54 PM CHEST W/ 07/30/2018 2:18 PM. TECHNIQUE: Routine helical CT imaging was performed through the chest. IV contrast: 100 mL of Optiray 320 contrast. Reconstructions: Coronal and sagittal. In accordance with CT protocol optimization, one or more of the following dose reduction techniques were utilized for this exam: automated exposure control, adjustment of mA and/or KV based on patient size, or use of iterative reconstructive technique. FINDINGS: Lungs/Pleura: Since most recent comparison, there has been no interval change in an irregular, diskoid 6 x 3 x 1.2 cm mass of the posterior right upper lobe abutting the apex of the major fissure, consistent with a treated primary tumor. Mass is slightly diminished in volume compared to study of 03/26/2018, measuring nearly a centimeter or less in craniocaudal measurement. Stable pattern of savage acinar and paraseptal emphysema involving the upper lobes and posterior lower lobes respectively. Subsegmental atelectasis noted in the right middle lobe. No new nodules or masses noted. No bronchial thickening, consolidation, or edema. Pulmonary vasculature is normal. No pericardial or pleural effusion. No pneumothorax. Mediastinum: Stable shotty mediastinal lymph nodes as before. At least mild 3 vessel coronary artery calcium again noted. No adenopathy or masses. The heart and great vessels are normal. Bones: Unremarkable. Visualized Abdomen: Dictated separately. Other: Stable mild gynecomastia. IMPRESSION: 1. Stable appearance of diskoid 6 x 3 x 1.2 cm mass right upper lobe abutting the major fissure since 07/30/2018, slightly improved since 03/26/2018, consistent with treated primary tumor. 2. Stable superimposed emphysema. No new nodules or masses. RADIA
== END 2018-11-05 12:48 | disposition home or self-care (01) ==
LOC: DI 12:47
PROVIDERS: ATTEND Internal Medicine
DX: C34.11 Malignant neoplasm of upper lobe, right bronchus or lung (principal); K40.90 Unilateral inguinal hernia, without obstruction or gangrene, not specified as recurrent; J43.9 Emphysema, unspecified
CPT/HCPCS: 71260; 74177

== ENCOUNTER 2018-11-30 02:43 | Outpatient (CLI) | payer SELFPAY | END 2018-11-30 02:44 | disposition EMS.NT | LOC: EMS 02:43 | PROVIDERS: ATTEND Surgery | DX: M79.672 Pain in left foot (principal) ==

== ENCOUNTER 2018-11-30 21:22 | Outpatient (CLI) | payer MEDICAID | END 2018-11-30 21:23 | disposition short-term general hospital (02) | LOC: EMS 21:22 | PROVIDERS: ATTEND Surgery | DX: R06.02 Shortness of breath (principal); R19.7 Diarrhea, unspecified; M79.89 Other specified soft tissue disorders; R05 Cough; R52 Pain, unspecified; R53.1 Weakness | CPT/HCPCS: A0425; A0429; A0999 ==

== ENCOUNTER 2018-12-18 15:09 | Outpatient (CLI) | payer MEDICAID ==
--- NOTE | 2018-12-18 16:14 | CONSULTATION NOTE ---
Palliative Care Follow Up - Referral Referring Provider: Dr. Jodee Castillo Time of Visit: [id number] [place] setting[place] [facility] [place]erral Reason: Acute on Chronic Pain/Lung cancer with brain mets/Cellulitis right foot - Information Sources Records reviewed: Previous records reviewed History/Review of Systems obtained from: Patient Exam limitations: Clinical condition (patient with STM issues/easily overwhelmed) - History of Present Illness Update Brief HPI Update: This is a 58-year-old gentleman well-known to me with adenocarcinoma the lung originally diagnosed in 2013. He has known brain mets, status post CyberKnife at in 02/2017. He had originally received radiation therapy, in 2018 had recurrence of disease in his right lung, and has received pembrolizumab 8 cycles total finishing 03/2018. He has been on surveillance since this time, with seemingly stable disease. He does not have a multiple casts of other comorbidities, including most recently a stay at [facility] from 11/30/2018 to 12/17/2018. He was admitted there after he had developed a new blister on his right foot, and the ED stay. He has been seen by wound care for care of his left great toe wound, it was told to seek medical care and imaging on his right foot. He had declined, until the weekend where he had increased pain to me concerned about a foot infection. He has had some intermittent diarrhea, though no fever and chills. He was found on his right fifth metatarsal foot ulcer with infection, status post debridement and resection of the fifth metatarsal head by podiatry on 12/04. The surgical wound culture grew MRSA, staph epidermidis, Enterobacter. He has a wound VAC in place, they attempted to place him in SNF but was unable to procure anyone who would accept him. Unfortunately they sent him home, he has very little social support. He has a few hours from [facility], His current care plan includes daily IV antibiotics at the [facility] and wound VAC at wound care 3 times a week. He is feeling somewhat overwhelmed, very confused about his medications, and has brought those in for medication reconciliation and follow-up. Patient has also been unable with his discharge, to locate his pain meds, he was given a short dose of oxycodone to tide him over. Patient has known alcoholic cardiomyopathy, ejection fraction 55 to 60%, hypertension, with lower extremity edema recently restarted on his torsemide. He has known peripheral neuropathy, managed with his gabapentin. His COPD, uses his inhalers and DuoNeb's 2-3 times a day. He continues to smoke. Also alcohol abuse continues drink a few beers a day, though usually withholds during antibiotic infusion. Patient has been treated for chronic wounds on his lower extremities secondary to peripheral vascular disease and neuropathies. He has had amputation on his left foot, currently getting treated with wound care team requiring ongoing debridement. Now with new wound on his right foot, increase in intensity with the wound VAC.Patient was also acute on chronic pain. Continues with residual right-sided pain, increased with deep inspiration, along with his chronic ongoing peripheral neuropathy which fluctuates, but has mostly been managed on his gabapentin 1600 mg twice daily. He has been unstable OxyContin 20 mg 3 times daily, and oxycodone 10 mg tablets not to exceed 8 tablets in a day, though he does often tend to run out. He reports he is having intermittent and fluctuating loose stools alternating with constipation. Also continues with intermittent nausea. He presents as somewhat disheveled, has been stressed trying to manage transportation, meal prep, and medications. He is easily overwhelmed, he has severe cataracts and is unable to read labels. He does have somewhat of a system, who was instructed to bring all meds up today. Social History - Living Situation Living arrangement: At home Living Situation: Other (has a roomate. Does have a few JAMES hours a week. [place] and is unable to help patient, and daughter whom he is currently estranged) Medications/Allergies - Medications Home Medications: Ambulatory Orders Medication Instructions Recorded Confirmed Lorazepam [Ativan] 1 mg PO Q8HR PRN 09/23/15 12/19/18 Tamsulosin [Flomax] 0.4 mg PO DAILY 06/29/16 12/19/18 Oxycodone HCl 10 - 20 mg PO Q4HR PRN MDD 8 tabs 07/26/17 12/19/18 Lidocaine Ointment 5% [Xylocaine 1 appful TOP PRN PRN 08/20/17 12/19/18 Ointment 5%] Potassium Chloride [K-Dur] 40 meq PO BID 08/30/17 12/19/18 Gabapentin [Neurontin] 1,600 mg PO BID 09/27/17 12/19/18 Levetiracetam [Keppra] 500 mg PO BID #30 tablet 11/23/17 12/19/18 Ondansetron Odt [Zofran Odt] 4 mg TL Q6H PRN #15 tablet 03/19/18 12/19/18 Budesonide/Formoterol Fumarate 10.2 gm IH BID #1 hfa.aer.ad 05/03/18 12/19/18 [Symbicort 160-4.5 Mcg Inhaler] Ipratropium/Albuterol [Duoneb] 3 ml INH Q4H PRN #120 neb 05/03/18 12/19/18 Albuterol Sulf [Ventolin Hfa 2 puffs INH Q4HR PRN 05/09/18 12/19/18 Inhaler] Melatonin 3 - 6 mg PO QPM PRN 05/09/18 12/19/18 Vitamin B Complex/Folic Acid 1 tab PO DAILY 05/09/18 12/19/18 [Vitamin B-100 Complex Tablet] Nystatin 5 ml PO QID 10/04/18 12/19/18 diphenhydrAMINE [Benadryl] 25 mg PO Q6HR PRN 10/04/18 12/19/18 Sennosides/Docusate Sodium 1 tab PO BID PRN 11/13/18 12/19/18 [Docusate Sodium-Senna Tablet] Chlorhexidine Gluconate [Peridex] 15 ml PO Q7D 12/18/18 12/19/18 Esomeprazole Magnesium [Nexium] 20 mg PO DAILY 12/18/18 12/19/18 Magnesium 250 mg PO DAILY 12/18/18 12/19/18 Oxycodone HCl [Oxycontin] 20 mg PO TID 12/18/18 12/19/18 Polyethylene Glycol 3350 [Miralax] 17 gm PO DAILY PRN 12/18/18 12/19/18 Torsemide 20 mg PO BID 12/19/18 12/19/18 - Allergies Allergies/Adverse Reactions: Allergies Allergy/AdvReac Type Severity Reaction Status Date / Time BRONWYN Inhibitors Allergy Emesis Verified 12/19/18 16:42 amoxicillin [From Augmentin] Allergy Emesis Verified 12/19/18 16:42 clavulanic acid Allergy Emesis Verified 12/19/18 16:42 [From Augmentin] lisinopril Allergy "THROAT Verified 12/19/18 16:42 SWELLING" Review of Systems - Constitutional Constitutional: reports: Fatigue, Weakness, Weight gain. denies: Fever, Chills - Eyes Eyes: reports: Vision loss - Ears, Nose & Throat Ears, Nose & Throat: reports: Hearing loss, Dental decay, Dry mouth, Other (recently with severe oral candidiasis; treated with fluconazole in hospital) - Cardiovascular Cardiovascular: reports: Decr. exercise tolerance - Respiratory Respiratory: reports: Cough (intermittent), SOB at rest, SOB with exertion. denies: Sputum production - Gastrointestinal Gastrointestinal: reports: Constipation, Diarrhea, Nausea, Good appetite. denies: Reflux/heartburn - Genitourinary Genitourinary: reports: Frequency, Urgency - Musculoskeletal Musculoskeletal: reports: Stiffness, Muscle weakness, Assistive devices (is suppose to limit weight bearing has been difficult to manage), Transfer issues (difficulty with wound vac on right foot;) - Integumentary Integumentary: reports: Dryness - Neurological Neurological: reports: General weakness, Headache, Memory problems, Abnormal gait - Psychiatric Psychiatric: reports: Depression, Anxiety - Endocrine Endocrine: reports: Diabetes type 2, Intolerance to cold - Hematologic/Lymphatic Hematologic/Lymphatic: reports: Anemia, Recurrent infections (recurrent pnemonia/cellulits) - All Other Systems All Other Systems: reports: Reviewed and negative Physical Exam - Vital Signs Temperature: 36.6 C Pulse Rate: 93 Respiratory Rate: 16 Blood Pressure: 124/77 - Physical Exam General Appearance: positive: Mild distress, Anxious Eyes Bilateral: positive: Normal inspection ENT: positive: Other (no s/s candidiasis; patient reports starting to feel like starting again; has nystatin will initiate) Neck: positive: No JVD, Trachea midline Cardiovascular: positive: Regular rate & rhythm Respiratory: positive: Diminished throughout. negative: Wheezes, Rales, Rhonchi Abdomen: positive: Non-tender, Nml bowel sounds, Distended, Obese Skin: positive: Pallor, Dryness, Wound (wound vac on right; cont. with Left great toe wound care at clinic) Extremities: positive: Pedal edema (1-2+ right greater than left) Neurologic/Psychiatric: positive: Oriented x3, Weakness, Depressed mood/affect, Flat affect Palliative Care - POLST Patient has POLST: No POLST Status: Full Code Pain: Pain worsening, Location (Patient currently on OxyContin 20 mg 3 times daily, has not had for several days, does have oxycodone 10 mg tabs, he takes 1- 2 at a time he is not to exceed 8 tabs though reports this fluctuates. He is on gabapentin 1600 mg twice daily for his severe peripheral neuropathy. He reports he still has a dull and fluctuating pain in his right chest area, worse at night. Pain is been exacerbated with multiple transfers as well as application of the wound VAC.) Tiredness/Fatigue: Moderate (4-6) Drowsiness/Sedation: Severe (7-10) (has been stressed over last 24 hours, has not been sleeping well) Nausea: Mild (1-3) Depression: Severe (7-10) (very distressed did not get place in SNF; wanted to go to [facility], very little insight to why they would not accept him anywhere with hx and dx) Anxiety: Severe (7-10) (feeling overwhelmed by trying to manage it all.) Dyspnea: Moderate (4-6) Anorexia: Mild (1-3) Sleep: Sleeps poorly Constipation: Intermittent constipation Feelings of wellbeing/Perceived Quality of Life: Fair, Worsening Performance Status: Patient previous to procedure, was ambulatory for short distances with rolling walker. He had poor activity tolerance visit was able to manage his ADLs with only moderate assist from [place] [employer] worker. Patient reports he is quite weak and deconditioned from his prolonged hospital stay, he is quite distressed he did not get a chance to go to rehab. It does look like he has outpatient therapy scheduled pending. He was not a candidate to manage at home. Patient is able to manage transfers in the wheelchair, and ambulate a few steps. He is at high risk for falls. - Palliative Care Discussion: He has very little insight or patients for his current situation. He has multiple financial and social stressors. He has been working with senior transportation, as well as [place] [employer] program and trying to put together a care plan. He is very worried about his ride on Sunday. Patient is having difficulty meeting his care needs at home, would have benefit from a SNF stay, but unable to place. Palliative care continues to provide support, patient continues to be a high utilizer of the healthcare system, with multiple comorbidities is at high risk for ongoing sequela. Patient now with new episode of cellulitis, prolonged hospitalization, and outpatient treatment plan. Patient has had some functional and cognitive decline, and is overwhelmed by his current situation. Impression and Recommendations - Palliative Care Impression: This is a 58-year-old gentleman who continues to struggle with multiple comorbidities, now with acute cellulitis of his right foot. Patient has high symptom burden, poor social support, and acute on chronic pain. Palliative care continue to provide support regarding pain and symptom management and assessment with coordination and navigating healthcare needs. Recommendations/Counseling Done: 1. Acute on chronic pain. Patient has severe peripheral neuropathy multifactorial in relationship to his peripheral vascular disease, most likely exacerbated by his long-term alcohol use, and managed currently with gabapentin 1600 mg twice daily. Patient also presents with residual right chest pain secondary to his lung cancer, history of rib fractures, and overall osteoarthritic and fibromyalgia pain. Patient unable to locate his original oxycodone prescription, hospital had discharged him on a short dose, insurance will not fill until Sunday. Patient has been instructed to take as directed and pace will not be release until Sunday. He is going to pick it up at [facility]. Patient with acute pain related to cellulitis and right toe wound, patient awaiting to pick up and delivery driver his OxyContin with his son. Pain is only moderately to poorly controlled, patient has been instructed on safety, to minimize alcohol use and benzodiazepine use. He is also instructed on safe storage, unfortunately he does rent a room, and was absent and unclear where his prescriptions landed. He usually keeps them on him or safely stored. 2. Cellitus the right foot. Patient continues On IV antibiotics, and currently being supported by wound care team with wound VAC 3 times a week. Patient has difficulty complying with minimal weightbearing secondary to his social situation. Patient is due for labs on Sunday. 3. Medication adherence. Patient brought up his meds, reviewed discharge list, patient with lower extremity edema and is resumed his torsemide. He is to follow-up with his PCP soon, did go through his list and current supply of medications, reviewed with patient. 4. Anorexia. Patient having difficulty with meal prep, Directed need to stay hydrated with water and other substances other than alcohol. Message left for his [employer] digital production manager Mya Adorno, she will redo assessment to increase caregiver hours, but most likely will not be able to meet patient's main concern which is transportation on Sunday. 5. Metastatic lung cancer. Follow-up with oncology clinic, regarding patient's next appointment. Patient has not set anything up, he was with Dr. Castillo, they will look at accommodating him in the next couple weeks. Time Spent: 45 minutes was given 50% of this done in reconciling medications, review of pain regimen and renewal of Rx, and coordination of care with needed follow up and support services.
== END 2018-12-18 15:10 | disposition home or self-care (01) ==
LOC: PC 15:09
PROVIDERS: ATTEND Nurse Practitioner Adult Health
DX: Z51.5 Encounter for palliative care (principal); C34.90 Malignant neoplasm of unspecified part of unspecified bronchus or lung; G89.3 Neoplasm related pain (acute) (chronic); C79.31 Secondary malignant neoplasm of brain; L03.115 Cellulitis of right lower limb; F32.9 Major depressive disorder, single episode, unspecified; F41.9 Anxiety disorder, unspecified; Z99.3 Dependence on wheelchair; Z91.81 History of falling; E11.42 Type 2 diabetes mellitus with diabetic polyneuropathy; E11.51 Type 2 diabetes mellitus with diabetic peripheral angiopathy without gangrene; R63.0 Anorexia; F10.10 Alcohol abuse, uncomplicated; D69.6 Thrombocytopenia, unspecified; I25.10 Atherosclerotic heart disease of native coronary artery without angina pectoris; J44.9 Chronic obstructive pulmonary disease, unspecified; I42.6 Alcoholic cardiomyopathy; I10 Essential (primary) hypertension; F17.200 Nicotine dependence, unspecified, uncomplicated; M21.962 Unspecified acquired deformity of left lower leg; R11.0 Nausea; R19.7 Diarrhea, unspecified; K59.00 Constipation, unspecified; R53.83 Other fatigue; R53.1 Weakness; H54.7 Unspecified visual loss; H91.90 Unspecified hearing loss, unspecified ear; R35.0 Frequency of micturition; R39.15 Urgency of urination; Z79.891 Long term (current) use of opiate analgesic; Z79.51 Long term (current) use of inhaled steroids; Z87.01 Personal history of pneumonia (recurrent); Z86.19 Personal history of other infectious and parasitic diseases
CPT/HCPCS: 99215

== ENCOUNTER 2018-12-19 16:34 | Inpatient (IN) | payer MEDICAID ==
[2018-12-19 16:47] LABS: BASOPHILS # (AUTO) 0.1 10^3/uL (0.0-0.1); BASOPHILS % (AUTO) 0.7 %; EOSINOPHILS # (AUTO) 0.3 10^3/uL (0.0-0.7); EOSINOPHILS % (AUTO) 2.8 %; HGB - HEMOGLOBIN 11.6 g/dL (14.0-18.0); LYMPHOCYTES # (AUTO) 2.9 10^3/uL (1.5-3.5); LYMPHOCYTES % (AUTO) 26.7 %; MEAN CORPUSCULAR HEMOGLOBIN 28.9 pg (27.0-31.0); MEAN CORPUSCULAR HGB CONC 31.4 g/dL (32.0-36.0); MEAN CORPUSCULAR VOLUME 91.8 fL (80.0-94.0); MEAN PLATELET VOLUME 9.6 fL (7.4-11.4); MONOCYTES # (AUTO) 1.3 10^3/uL (0.0-1.0); MONOCYTES % (AUTO) 11.8 %; NEUTROPHILS # (AUTO) 5.9 10^3/uL (1.5-6.6); NEUTROPHILS % (AUTO) 54.7 %; PLT - PLATELET COUNT 188 10^3/uL (130-450); RED BLOOD COUNT 4.02 10^6/uL (4.70-6.10); RED CELL DISTRIBUTION WIDTH 18.6 % (12.0-15.0); WHITE BLOOD COUNT 10.8 x10^3/uL (4.8-10.8)
[2018-12-19] MEDS ORDERED: levETIRAcetam INJ 500 MG in SODIUM CHLORIDE 0.9% 100ML 100 ML IV STA (16:54)
--- NOTE | 2018-12-19 16:54 | ED Physician Documentation ---
History of Present Illness - Stated complaint Stated Complaint: POST ARREST - Chief complaint Chief Complaint: Cardiac - History obtained from History obtained from: Patient - History of Present Illness Timing: Today Pain level max: 0 Pain level now: 0 - Additonal information Additional information: Patient has a history of metastatic adenocarcinoma of the lung with mets to the brain. He has had brain metastases since 2014 had a resection in 2018. Had a recurrence in his right long and has been off of chemotherapy since March 2018. His surveillance CT scans of the lung mass has been reportedly improving per his oncologist. Has a history of candidiasis in his throat. Also has a history of anemia, thrombocytopenia and is on antibiotics for an infection in his left foot. He has had multiple infections lately per oncology, has reported shortness of breath on exertion to oncology as well. He had a seizure in the MAC clinic today followed by occlusion of his airway, hypoxia and brief loss of pulses. Airway was reopened, oxygen applied and pulses returned. He was then postictal and is now back to baseline. Has had seizures in the past. He is unclear if he is taking his Keppra or not, he states that he "assumes they are giving it to me". Lives at home and has caregivers. Review of Systems Ten Systems: 10 systems reviewed and negative Constitutional: denies: Fever, Chills Ears: denies: Ear pain Nose: denies: Rhinorrhea / runny nose, Congestion Throat: denies: Sore throat Cardiac: reports: Chest pain / pressure (States that his chest is sore after CPR) Respiratory: reports: Dyspnea GI: denies: Vomiting, Diarrhea Skin: denies: Rash Musculoskeletal: denies: Neck pain, Back pain Neurologic: denies: Headache PD PAST MEDICAL HISTORY - Past Medical History Cardiovascular: Hypertension, Coronary artery disease, Peripheral Vascular Disease Respiratory: COPD, Shortness of breath, Other Neuro: Seizure disorder, Other Endocrine/Autoimmune: None GI: GERD, Chronic constipation, Diverticulitis : Benign prostate hypertrophy, Incontinence, Nocturia, Frequency HEENT: Chronic vision loss Psych: Anxiety Musculoskeletal: Chronic back pain, Other Derm: None - Past Surgical History Past Surgical History: Yes Ortho: Amputation Cardiovascular: Cardiac catheterization Neuro: Craniotomy, Gamma knife - Present Medications Home Medications: Ambulatory Orders Medication Instructions Recorded Confirmed Lorazepam [Ativan] 1 mg PO Q8HR PRN 09/23/15 12/19/18 Tamsulosin [Flomax] 0.4 mg PO DAILY 06/29/16 12/19/18 Oxycodone HCl 10 - 20 mg PO Q4HR PRN MDD 8 tabs 07/26/17 12/19/18 Lidocaine Ointment 5% [Xylocaine 1 appful TOP PRN PRN 08/20/17 12/19/18 Ointment 5%] Potassium Chloride [K-Dur] 40 meq PO BID 08/30/17 12/19/18 Gabapentin [Neurontin] 1,600 mg PO BID 09/27/17 12/19/18 Levetiracetam [Keppra] 500 mg PO BID #30 tablet 11/23/17 12/19/18 Ondansetron Odt [Zofran Odt] 4 mg TL Q6H PRN #15 tablet 03/19/18 12/19/18 Budesonide/Formoterol Fumarate 10.2 gm IH BID #1 hfa.aer.ad 05/03/18 12/19/18 [Symbicort 160-4.5 Mcg Inhaler] Ipratropium/Albuterol [Duoneb] 3 ml INH Q4H PRN #120 neb 05/03/18 12/19/18 Albuterol Sulf [Ventolin Hfa 2 puffs INH Q4HR PRN 05/09/18 12/19/18 Inhaler] Melatonin 3 - 6 mg PO QPM PRN 05/09/18 12/19/18 Vitamin B Complex/Folic Acid 1 tab PO DAILY 05/09/18 12/19/18 [Vitamin B-100 Complex Tablet] Nystatin 5 ml PO QID 10/04/18 12/19/18 diphenhydrAMINE [Benadryl] 25 mg PO Q6HR PRN 10/04/18 12/19/18 Sennosides/Docusate Sodium 1 tab PO BID PRN 11/13/18 12/19/18 [Docusate Sodium-Senna Tablet] Chlorhexidine Gluconate [Peridex] 15 ml PO Q7D 12/18/18 12/19/18 Esomeprazole Magnesium [Nexium] 20 mg PO DAILY 12/18/18 12/19/18 Magnesium 250 mg PO DAILY 12/18/18 12/19/18 Oxycodone HCl [Oxycontin] 20 mg PO TID 12/18/18 12/19/18 Polyethylene Glycol 3350 [Miralax] 17 gm PO DAILY PRN 12/18/18 12/19/18 Torsemide 20 mg PO BID 12/19/18 12/19/18 - Allergies Allergies/Adverse Reactions: Allergies Allergy/AdvReac Type Severity Reaction Status Date / Time BRONWYN Inhibitors Allergy Emesis Verified 12/19/18 16:42 amoxicillin [From Augmentin] Allergy Emesis Verified 12/19/18 16:42 clavulanic acid Allergy Emesis Verified 12/19/18 16:42 [From Augmentin] lisinopril Allergy "THROAT Verified 12/19/18 16:42 SWELLING" - Social History Does the pt smoke?: Yes Smoking Status: Current every day smoker Does the pt drink ETOH?: Yes Does the pt have substance abuse?: No - Immunizations Immunizations are current?: Yes - POLST Patient has POLST: No POLST Status: Other PD ED PE NORMAL - Vitals Vital signs reviewed: Yes - General General: Alert and oriented X 3, No acute distress, Well developed/nourished - HEENT HEENT: Atraumatic, PERRL, Ears normal, Moist mucous membranes - Neck Neck: Supple, no meningeal sign, No bony TTP - Cardiac Cardiac: RRR, No murmur, Strong equal pulses - Respiratory Respiratory: No respiratory distress, Clear bilaterally - Abdomen Abdomen: Soft, Non tender, Non distended - Derm Derm: Warm and dry, No rash - Extremities Extremities: Other (2+ pitting edema bilateral lower extremity) - Neuro Neuro: Alert and oriented X 3, satellite communications engineer 2-12 intact, No motor deficit, No sensory deficit Eye Opening: Spontaneous Motor: Obeys Commands Verbal: Oriented GCS Score: 15 - Psych Psych: Normal mood, Normal affect Results - Vitals Vitals: Vital Signs - 24 hr 12/19/18 12/19/18 12/19/18 16:39 16:42 17:33 Temperature 37.1 C Heart Rate 87 106 H 105 H Respiratory 21 21 17 Rate Blood Pressure 105/68 125/70 90/51 L O2 Saturation 94 96 95 12/19/18 12/19/18 12/19/18 18:16 18:42 19:03 Temperature Heart Rate 105 H 97 100 Respiratory 15 16 18 Rate Blood Pressure 97/56 L 95/57 L 117/66 O2 Saturation 98 99 100 12/19/18 12/19/18 12/19/18 19:27 19:30 19:35 Temperature Heart Rate 94 98 93 Respiratory 17 17 17 Rate Blood Pressure 113/75 117/81 H O2 Saturation 96 10 L 12/19/18 20:00 Temperature 37.4 C Heart Rate 88 Respiratory 20 Rate Blood Pressure 136/82 H O2 Saturation 100 Oxygen O2 Source Non-rebreather mask - EKG (time done) 1636 Rate: Rate (enter#) (99) Rhythm: NSR [place]: Normal Intervals: Normal AL QRS: Normal Ischemia: Normal ST segments - Labs Labs: Laboratory Tests 12/19/18 12/19/18 12/19/18 16:15 16:15 16:15 WBC 10.8 RBC 4.02 L Hgb 11.6 L Hct 36.9 L MCV 91.8 MCH 28.9 MCHC 31.4 L RDW 18.6 H Plt Count 188 MPV 9.6 Neut # (Auto) 5.9 Lymph # (Auto) 2.9 [place] # (Auto) 1.3 H Eos # (Auto) 0.3 Baso # (Auto) 0.1 Absolute Nucleated RBC 0.04 Nucleated RBC % 0.4 Sodium 135 Potassium 4.8 Chloride 101 Carbon Dioxide 16 L Anion Gap 18.0 H BUN 8 Creatinine 0.9 Estimated GFR (MDRD) 87 L Glucose 109 H POC Whole Bld Glucose Lactic Acid Calcium 9.2 Magnesium Total Bilirubin 1.1 H AST 23 ALT 13 Alkaline Phosphatase 60 Troponin I < 0.04 B-Natriuretic Peptide Total Protein 7.3 Albumin 3.7 Globulin 3.6 Albumin/Globulin Ratio 1.0 Lipase 24 TSH 12/19/18 12/19/18 12/19/18 16:15 16:15 16:15 WBC RBC Hgb Hct MCV MCH MCHC RDW Plt Count MPV Neut # (Auto) Lymph # (Auto) [place] # (Auto) Eos # (Auto) Baso # (Auto) Absolute Nucleated RBC Nucleated RBC % Sodium Potassium Chloride Carbon Dioxide Anion Gap BUN Creatinine Estimated GFR (MDRD) Glucose POC Whole Bld Glucose Lactic Acid > 10.0 H* Calcium Magnesium 2.2 Total Bilirubin AST ALT Alkaline Phosphatase Troponin I B-Natriuretic Peptide Total Protein Albumin Globulin Albumin/Globulin Ratio Lipase TSH 2.49 12/19/18 12/19/18 16:40 17:04 WBC RBC Hgb Hct MCV MCH MCHC RDW Plt Count MPV Neut # (Auto) Lymph # (Auto) [place] # (Auto) Eos # (Auto) Baso # (Auto) Absolute Nucleated RBC Nucleated RBC % Sodium Potassium Chloride Carbon Dioxide Anion Gap BUN Creatinine Estimated GFR (MDRD) Glucose POC Whole Bld Glucose 134 H Lactic Acid Calcium Magnesium Total Bilirubin AST ALT Alkaline Phosphatase Troponin I B-Natriuretic Peptide 101 H Total Protein Albumin Globulin Albumin/Globulin Ratio Lipase TSH - Rads (name of study) cxr Radiology: Prelim report reviewed, EMP read contemporaneously, See rad report (1. Question mildly displaced right lower rib fractures on the first image, suboptimally evaluated. 2. Low expansion with increased hazy basilar opacities that may represent atelectasis or edema. ) head CT Radiology: Prelim report reviewed, EMP read contemporaneously, See rad report (No acute intracranial changes) chest w/o CT Radiology: Prelim report reviewed, EMP read contemporaneously, See rad report (Acute, mildly displaced right posterior sixth rib fracture and nondisplaced left anterior fifth rib fracture. Multiple old, healed fractures. Emphysema and bilateral lower lobe consolidation. ) PD MEDICAL DECISION MAKING - ED course Complexity details: reviewed old records, reviewed results, re-evaluated patient, considered differential, d/w patient, d/w network pricing consultant ED course: Patient with rib fractures from the CPR. Possible pulmonary contusions versus edema and continued hypoxia. Given nebulizer treatment in the emergency department. IV fluids given. He stated he had not taken his Keppra for several days, this is reloaded in the emergency department. Ativan given as well. Will admit the patient for further care. Discussed the case with the hospitalist, Dr. Granados who accepts. This document was made in part using voice recognition software. While efforts are made to proofread this document, sound alike and grammatical errors may occur. Departure - Departure Disposition: ED Place in Observation Clinical Impression: Hypoxia, Recurrent seizures, Brain metastases Rib fractures Qualifiers: Encounter type: initial encounter Rib fracture type: single rib Fracture type: closed Laterality: right Qualified Code(s): S22.31XA - Fracture of one rib, right side, initial encounter for closed fracture Metastatic adenocarcinoma to lung Qualifiers: Laterality: right Qualified Code(s): C78.01 - Secondary malignant neoplasm of right lung Condition: Stable Discharge Date/Time: 12/19/18 20:53
[2018-12-19] MEDS ORDERED: LORazepam 2 MG/ML VIAL IVP STA (16:55)
[2018-12-19 16:57] LABS: ALBUMIN 3.7 g/dL (3.2-5.5); BILIRUBIN,TOTAL 1.1 mg/dL (0.2-1.0); CALCIUM 9.2 mg/dL (8.5-10.3); CREATININE 0.9 mg/dL (0.6-1.2); TOTAL PROTEIN 7.3 g/dL (6.7-8.2)
[2018-12-19] MEDS ORDERED: SODIUM CHLORIDE 0.9% 1,000 ML IV ONE ×3 (16:59→19:13)
--- NOTE | 2018-12-19 17:06 | XRAY Report ---
Reason: Chest Pain Procedure Date: 12/19/2018 Accession Number: [id number] / [id number] Procedure: XR - Chest 1 View X-Ray CPT Code: 60637 FULL RESULT: EXAM: CHEST RADIOGRAPHY EXAM DATE: 12/19/2018 04:53 PM. CLINICAL HISTORY: Chest Pain. COMPARISON: CHEST 2 VIEW 08/26/2018 9:54 PM CHEST W/ 11/05/2018 2:05 PM. TECHNIQUE: 1 view. FINDINGS: Heart size within normal limits. Left chest port catheter in appropriate position. Low expansion. Right midlung scarring is similar. Increased hazy perihilar and basilar opacities from prior. No pleural effusion or pneumothorax seen. There may be a few mildly displaced right lower rib fractures on the first image, suboptimally evaluated. IMPRESSION: 1. Question mildly displaced right lower rib fractures on the first image, suboptimally evaluated. 2. Low expansion with increased hazy basilar opacities that may represent atelectasis or edema. RADIA
[2018-12-19] MEDS ORDERED: HYDROmorphone 1 MG/ML CARPUJECT IVP STA ×2 (17:41→20:29)
--- NOTE | 2018-12-19 18:37 | CT Report ---
Reason: increase seizure activity, known mets Procedure Date: 12/19/2018 Accession Number: [id number] / [id number] Procedure: CT - HEAD WO CPT Code: FULL RESULT: EXAM: CT HEAD EXAM DATE: 12/19/2018 06:10 PM. CLINICAL HISTORY: Increase seizure activity, known mets. COMPARISON: HEAD W/O 04/22/2018 12:31 AM. TECHNIQUE: Multiaxial CT images were obtained from the foramen magnum to the vertex. Reformats: Sagittal and coronal. IV contrast: None. In accordance with CT protocol optimization, one or more of the following dose reduction techniques were utilized for this exam: automated exposure control, adjustment of mA and/or KV based on patient size, or use of iterative reconstructive technique. FINDINGS: Again seen is a right frontal craniotomy. No suspicious lytic or blastic region is seen in the calvarium. A region of encephalomalacia is seen beneath the right frontal craniotomy defect. There is some hyperattenuation which is somewhat linear which might reflect mineralization in this region. Areas of low attenuation in the cerebral hemisphere white matter bilaterally are again seen. The lateral ventricles are prominent for the patient's age. They are stable. This could be due to central volume loss or developing NPH, No intracranial hemorrhage is present. There is no extraaxial fluid collection. IMPRESSION: 1. No acute intracranial process. 2. The head CT is not changed since the comparison study. RADIA
[2018-12-19] MEDS ORDERED: IPRATROPIUM/ALBUTEROL 3 ML NEB INH STA (19:13)
[2018-12-19] MEDS ORDERED: PROCHLORPERAZINE 10 MG/2 ML VIAL IVP PRN (20:23)
[2018-12-19] MEDS ORDERED: oxyCODONE 5 MG TABLET PO PRN (20:23)
[2018-12-19] MEDS ORDERED: DOCUSATE SODIUM PO PRN (20:29)
[2018-12-19] MEDS ORDERED: diphenhydrAMINE 25 MG CAPSULE PO PRN (20:29)
[2018-12-19] MEDS ORDERED: SENNOSIDES PO PRN (20:29)
[2018-12-19] MEDS ORDERED: POLYETHYLENE GLYCOL 3350 17 GM PACKET PO PRN (20:29)
[2018-12-19] MEDS ORDERED: LACTATED RINGERS 1,000 ML IV SCH (21:00)
--- NOTE | 2018-12-19 21:00 | HISTORY & PHYSICAL EXAMINATION ---
Chief Complaint - Chief Complaint Chief Complaint: Patient sustained 2 seizures witnessed along with CP arrest Stroke/TIA/Neuro Template - Admitted From Admitted from: ED - History Obtained From Records Reviewed: RN notes reviewed, Old records reviewed History obtained from: Patient Exam limitations: No limitations - History of Present Illness HPI Comment/Other: This is a 58-year-old male who looks older than what he appears with a complex medical history to consist of history of metastatic adenocarcinoma of the lung with mets to the brain. Past medical history significant for hypertension, coronary disease, peripheral vascular disease, COPD, seizure disorder, GERD, diverticulits, chronic constipation, BPH, CVL, CBP, Opiate dependent on oxycodone, ischemic peripheral disease nonhealing ulcer to the right foot, anem ia, chronic current every day smoker/tobacco dependence, medical noncompliance. Previously seeing Dr. Jodee Castillo as primary hem/onc, now sees a Dr. Arellano at [facility]. He has had brain metastases since 2014 had a resection in 2018. Had a recurrence in his right long and has been off of chemotherapy since March 2018. His surveillance CT scans of the lung mass has been reportedly improving per his oncologist. Has a history of candidiasis in his throat. Also has a history of anemia, thrombocytopenia and is on antibiotics for an infection in his left foot. He has had multiple infections lately per oncology, has reported shortness of breath on exertion to oncology as well. He had a seizure in the [facility] clinic today followed by occlusion of his airway, hypoxia and brief loss of pulses. Airway was reopened, oxygen applied and pulses returned. He was then postictal and is now back to baseline. Has had seizures in the past. He is unclear if he is taking his Keppra or not, he state s that he "assumes they are giving it to me". Lives at home and has caregivers. On Exam patient was c/o severe back pain, was given IV keppra, ativan, dilauid, as well as fluids in ED. Patient did sustain R-rib fractures as a result of aggressive CPR, non-contrast CT ordered. EKG shows no ST-T wave abnormalities, Labs were unremarkbale with the exception of co2 16, was SOB after CPR sec to pulmonary contusion and or edema formation with a BNP 101, trop neg. VSS initially showed hypotension, placed on NRB 10L at 98% o2 sat, BP went from 90/51 to 113/75, NT/NT. Patient was admitted and d/c'ed on 05/03/18 here for COPD exacerbation and was a DNR back then but has reverted that and sees Palliative Kari Yanez. Still continues to smoke despite lung adenoCA with mets to brain. CT head shows no brain lesions surprisingly with no lytic lesions to calvarium. PMH/PSH - Past Medical History Cardiovascular: positive: Hypertension, Coronary artery disease, Peripheral Vascular Disease Respiratory: positive: COPD, Shortness of breath, Other Neuro: positive: Seizure disorder, Other Endocrine/Autoimmune: positive: None GI: positive: GERD, Chronic constipation, Diverticulitis : positive: Benign prostate hypertrophy, Incontinence, Nocturia, Frequency HEENT: positive: Chronic vision loss Psych: positive: Anxiety Musculoskeletal: positive: Chronic back pain, Other Derm: positive: None MRSA Hx?: No Other Past Medical History: osteomyelitis, brain tumor, lung cancer - Past Surgical History Ortho: positive: Amputation Cardiovascular: positive: Cardiac catheterization Neuro: positive: Craniotomy, Gamma knife Social & Family Hx - Social History Does the pt smoke?: Yes Smoking Status: Current every day smoker Does the pt drink ETOH?: Yes Does the pt have substance abuse?: No - POLST Patient has POLST: No POLST Status: Other Meds/Allgy - Home Medications Home Medications: Ambulatory Orders Medication Instructions Recorded Confirmed Lorazepam [Ativan] 1 mg PO Q8HR PRN 09/23/15 12/19/18 Tamsulosin [Flomax] 0.4 mg PO DAILY 06/29/16 12/19/18 Oxycodone HCl 10 - 20 mg PO Q4HR PRN MDD 8 tabs 07/26/17 12/19/18 Lidocaine Ointment 5% [Xylocaine 1 appful TOP PRN PRN 08/20/17 12/19/18 Ointment 5%] Potassium Chloride [K-Dur] 40 meq PO BID 08/30/17 12/19/18 Gabapentin [Neurontin] 1,600 mg PO BID 09/27/17 12/19/18 Levetiracetam [Keppra] 500 mg PO BID #30 tablet 11/23/17 12/19/18 Ondansetron Odt [Zofran Odt] 4 mg TL Q6H PRN #15 tablet 03/19/18 12/19/18 Budesonide/Formoterol Fumarate 10.2 gm IH BID #1 hfa.aer.ad 05/03/18 12/19/18 [Symbicort 160-4.5 Mcg Inhaler] Ipratropium/Albuterol [Duoneb] 3 ml INH Q4H PRN #120 neb 05/03/18 12/19/18 Albuterol Sulf [Ventolin Hfa 2 puffs INH Q4HR PRN 05/09/18 12/19/18 Inhaler] Melatonin 3 - 6 mg PO QPM PRN 05/09/18 12/19/18 Vitamin B Complex/Folic Acid 1 tab PO DAILY 05/09/18 12/19/18 [Vitamin B-100 Complex Tablet] Nystatin 5 ml PO QID 10/04/18 12/19/18 diphenhydrAMINE [Benadryl] 25 mg PO Q6HR PRN 10/04/18 12/19/18 Sennosides/Docusate Sodium 1 tab PO BID PRN 11/13/18 12/19/18 [Docusate Sodium-Senna Tablet] Chlorhexidine Gluconate [Peridex] 15 ml PO Q7D 12/18/18 12/19/18 Esomeprazole Magnesium [Nexium] 20 mg PO DAILY 12/18/18 12/19/18 Magnesium 250 mg PO DAILY 12/18/18 12/19/18 Oxycodone HCl [Oxycontin] 20 mg PO TID 12/18/18 12/19/18 Polyethylene Glycol 3350 [Miralax] 17 gm PO DAILY PRN 12/18/18 12/19/18 Torsemide 20 mg PO BID 12/19/18 12/19/18 - Allergies Allergies/Adverse Reactions: Allergies Allergy/AdvReac Type Severity Reaction Status Date / Time BRONWYN Inhibitors Allergy Emesis Verified 12/19/18 16:42 amoxicillin [From Augmentin] Allergy Emesis Verified 12/19/18 16:42 clavulanic acid Allergy Emesis Verified 12/19/18 16:42 [From Augmentin] lisinopril Allergy "THROAT Verified 12/19/18 16:42 SWELLING" Review of Systems - All Other Systems All Other Systems: reports: Reviewed and negative Prior Level of Functionality: Patient is ambulatory, has caregivers and FC/Home ADL's adequate Exam - Vital Signs Reviewed Vital Signs: Yes Vital Signs: Vital Signs x48h Temp Pulse Resp BP Pulse Ox 12/19/18 20:38 37.1 C 99 28 H 138/86 H 92 12/19/18 20:00 37.4 C 88 20 136/82 H 100 12/19/18 19:35 93 17 12/19/18 19:30 98 17 117/81 H 10 L 12/19/18 19:27 94 17 113/75 96 12/19/18 19:03 100 18 117/66 100 12/19/18 18:42 97 16 95/57 L 99 12/19/18 18:16 105 H 15 97/56 L 98 12/19/18 17:33 105 H 17 90/51 L 95 12/19/18 16:42 37.1 C 106 H 21 125/70 96 12/19/18 16:39 87 21 105/68 94 - Physical Exam General Appearance: positive: No acute distress, Alert, Mild distress, Anxious, Other (Chronically ill-appearing) Eyes Bilateral: positive: Normal inspection, PERRL, EOMI, Conjunctivae nml ENT: positive: ENT inspection nml, Pharynx nml, No signs of dehydration Neck: positive: Nml inspection, Thyroid nml, No JVD, Trachea midline. negative: Thyromegaly Respiratory: positive: Breath sounds nml, Rhonchi, Other (Tenderness to right anterior and lateral thorax, pain on deep inspiration). negative: Wheezes, Rales Cardiovascular: positive: Regular rate & rhythm, No murmur, No gallop Peripheral Pulses: positive: 1+ Abdomen: positive: Non-tender, No organomegaly, Nml bowel sounds, No distention Back: positive: CVA tenderness (R) Skin: positive: Color nml, No rash, Warm, Dry, Other (Ischemic ulcerative region to right lateral foot) Neurologic/Psychiatric: positive: Oriented x3, CN's nml (2-12) Results - Lab Results Lab results reviewed: Yes Fish Bones: 12/19/18 16:15 12/19/18 16:15 Other Lab Results: Lab Results x24hrs 12/19/18 12/19/18 12/19/18 Range/Units 17:04 16:40 16:15 WBC (4.8-10.8) x10^3/uL RBC (4.70-6.10) 10^6/uL Hgb (14.0-18.0) g/dL Hct (42.0-52.0) % MCV (80.0-94.0) fL MCH (27.0-31.0) pg MCHC (32.0-36.0) g/dL RDW (12.0-15.0) % Plt Count (130-450) 10^3/uL MPV (7.4-11.4) fL Neut # (Auto) (1.5-6.6) 10^3/uL Lymph # (Auto) (1.5-3.5) 10^3/uL [place] # (Auto) (0.0-1.0) 10^3/uL Eos # (Auto) (0.0-0.7) 10^3/uL Baso # (Auto) (0.0-0.1) 10^3/uL Absolute Nucleated RBC x10^3/uL Nucleated RBC % /100WBC Sodium (135-145) mmol/L Potassium (3.5-5.0) mmol/L Chloride (101-111) mmol/L Carbon Dioxide (21-32) mmol/L Anion Gap (6-13) BUN (6-20) mg/dL Creatinine (0.6-1.2) mg/dL Estimated GFR (MDRD) (>89) Glucose (70-100) mg/dL POC Whole Bld Glucose 134 H (70 - 100) mg/dL Calcium (8.5-10.3) mg/dL Magnesium 2.2 (1.7-2.8) mg/dL Total Bilirubin (0.2-1.0) mg/dL AST (10-42) IU/L ALT (10-60) IU/L Alkaline Phosphatase (42-121) IU/L Troponin I (<0.49) ng/mL B-Natriuretic Peptide 101 H (5-100) pg/mL Total Protein (6.7-8.2) g/dL Albumin (3.2-5.5) g/dL Globulin (2.1-4.2) g/dL Albumin/Globulin Ratio (1.0-2.2) Lipase (22-51) U/L 12/19/18 12/19/18 12/19/18 Range/Units 16:15 16:15 16:15 WBC 10.8 (4.8-10.8) x10^3/uL RBC 4.02 L (4.70-6.10) 10^6/uL Hgb 11.6 L (14.0-18.0) g/dL Hct 36.9 L (42.0-52.0) % MCV 91.8 (80.0-94.0) fL MCH 28.9 (27.0-31.0) pg MCHC 31.4 L (32.0-36.0) g/dL RDW 18.6 H (12.0-15.0) % Plt Count 188 (130-450) 10^3/uL MPV 9.6 (7.4-11.4) fL Neut # (Auto) 5.9 (1.5-6.6) 10^3/uL Lymph # (Auto) 2.9 (1.5-3.5) 10^3/uL [place] # (Auto) 1.3 H (0.0-1.0) 10^3/uL Eos # (Auto) 0.3 (0.0-0.7) 10^3/uL Baso # (Auto) 0.1 (0.0-0.1) 10^3/uL Absolute Nucleated RBC 0.04 x10^3/uL Nucleated RBC % 0.4 /100WBC Sodium 135 (135-145) mmol/L Potassium 4.8 (3.5-5.0) mmol/L Chloride 101 (101-111) mmol/L Carbon Dioxide 16 L (21-32) mmol/L Anion Gap 18.0 H (6-13) BUN 8 (6-20) mg/dL Creatinine 0.9 (0.6-1.2) mg/dL Estimated GFR (MDRD) 87 L (>89) Glucose 109 H (70-100) mg/dL POC Whole Bld Glucose (70 - 100) mg/dL Calcium 9.2 (8.5-10.3) mg/dL Magnesium (1.7-2.8) mg/dL Total Bilirubin 1.1 H (0.2-1.0) mg/dL AST 23 (10-42) IU/L ALT 13 (10-60) IU/L Alkaline Phosphatase 60 (42-121) IU/L Troponin I < 0.04 (<0.49) ng/mL B-Natriuretic Peptide (5-100) pg/mL Total Protein 7.3 (6.7-8.2) g/dL Albumin 3.7 (3.2-5.5) g/dL Globulin 3.6 (2.1-4.2) g/dL Albumin/Globulin Ratio 1.0 (1.0-2.2) Lipase 24 (22-51) U/L - Diagnostic Imaging Results Diagnostic Imaging Results: positive: Final report reviewed - EKG Results EKG Interpreted Independently: Yes EKG Comparison: positive: Old EKG unavailable Impression/Plan - Problem List Problem List: 1. Seizure disorder, uncontrolled 2. Acute cardiopulmonary arrest status post CPR 3. Acute pulmonary contusion and associated rib fractures sec to CPR 4. Hypotensive event 5. Acute respiratory arrest with transient hypoxia 6. COPD w/o exacerabation 7. Adenocarcinoma of lung with mets to brain s/p chemotx with pembrolizumab 8. PVD with ischemic ulcer to right lateral foot, recent left foot infection s/p IV daptomycin 9. Chronic pain syndrome with opiate dependence/CBP 10. Oropharyngeal Con 11. CAD 12. Medical noncompliance 13. Chronic tobacco use/dependence DVT ppx with lovenox due to adenoca with mets, H2 jessica for GI ppx. Plan: Admit to OBs/Tele, continue with IV keppra, Ativan prn, likely from patient;s non-compliance, continue with fluids, reconcile meds, on oxy tid plus ER BID at home, would sub for morphine, lidoderm patch for rib fx's, palliative needs to see patient to re-address pain control, code status and goals of care, duonebs+performist BID, add singuliar, optimize o2tx, non-contrast CT to eval for pulm contusion/rib fx's, sodium bicarb for mild MA, IV abx with rocephin for ischemic PVD NH-ulcer to right lateral foot, likely needs wound care, place on vistaril prn, nicotine patch with smoking education and counseling and cessation especially in the setting of adenoCA lung with mets to brain. ASA and statin for CAD/PVD. Continue with torsemide for BLLE edema which does not appear cellulitic, continue with Nystatin plus peridex for OP-con. CT head shows no lbrain lesions surprisingly with no lytic lesions to calvarium. Core Measures - Anticipated LOS I expect patient to be DC'd or transferred within 96 hours.: Yes - Issues Hospital Issues and Management Plan: Med mgmt, palliative care, wound care, pain mgmt - DVT/VTE - Prophylaxis VTE/DVT Device ordered at admit?: Yes VTE/DVT Prophylaxis med ordered at admit?: Yes - Stroke - Rehab Assessment Rehab services assessment to be ordered?: No Not Ordered - Medical Reason: Not indicated - AMI - Statin at Admit Aspirin Prescribed on Admit: Yes
[2018-12-19] MEDS ORDERED: DOCUSATE SODIUM 100 MG CAPSULE PO PRN (21:05)
[2018-12-19] MEDS ORDERED: SENNA 8.6 MG TABLET PO PRN (21:06)
[2018-12-19] MEDS ORDERED: NICOTINE 21 MG PATCH TOP STA (21:12)
[2018-12-19 21:27] LABS: BILIRUBIN,URINE NEGATIVE (NEGATIVE); GLUCOSE, URINE (UA) NEGATIVE (NEGATIVE); KETONES,URINE (UA) NEGATIVE (NEGATIVE); LEUKOCYTE ESTERASE, URINE NEGATIVE (NEGATIVE); NITRITE,URINE NEGATIVE (NEGATIVE); OCCULT BLOOD,URINE NEGATIVE (NEGATIVE); PROTEIN,URINE NEGATIVE (NEGATIVE); UROBILINOGEN,URINE 0.2 (NORMAL) E.U./dL (NORMAL)
[2018-12-19] MEDS ORDERED: SODIUM CHLORIDE FLUSH 0.9% 10 ML SYRINGE IVP PRN (21:27)
[2018-12-19] MEDS ORDERED: hydrOXYzine PAMOATE 25 MG CAPSULE PO PRN (21:31)
[2018-12-19] MEDS ORDERED: NALOXONE 0.4 MG/ML VIAL IVP PRN (21:36)
[2018-12-19 21:38] LABS: CLARITY,URINE CLEAR (CLEAR)
[2018-12-19] MEDS ORDERED: LORazepam 2 MG/ML VIAL IVP PRN (21:42)
[2018-12-19] MEDS ORDERED: cefTRIAXone 2 GM VIAL IVP SCH (22:00)
--- NOTE | 2018-12-19 22:23 | CT Report ---
Reason: rib fractures s/p cpr Procedure Date: 12/19/2018 Accession Number: [id number] / [id number] Procedure: CT - CHEST WO CPT Code: FULL RESULT: EXAM: CT CHEST EXAM DATE: 12/19/2018 09:56 PM. CLINICAL HISTORY: Rib fractures s/p cpr. COMPARISONS: ABDOMEN/PELVIS W/ 11/05/2018 2:05 PM. TECHNIQUE: Routine helical CT imaging was performed through the chest. IV contrast: None. Reconstructions: Coronal and sagittal. In accordance with CT protocol optimization, one or more of the following dose reduction techniques were utilized for this exam: automated exposure control, adjustment of mA and/or KV based on patient size, or use of iterative reconstructive technique. FINDINGS: Lungs/Pleura: Extensive emphysema. Bilateral lower lobe consolidation. No effusion or pneumothorax. Mediastinum: Atherosclerotic calcifications. No cardiomegaly or adenopathy. Bones: Acute, nondisplaced fracture of the left anterior fifth rib and mildly displaced fracture of the right posterior sixth rib. Multiple old, healed bilateral rib fractures. Visualized Abdomen: Unremarkable. Other: Left subclavian port terminating in the superior vena cava. IMPRESSION: Acute, mildly displaced right posterior sixth rib fracture and nondisplaced left anterior fifth rib fracture. Multiple old, healed fractures. Emphysema and bilateral lower lobe consolidation. RADIA
[2018-12-19] MEDS: IPRATROPIUM/ALBUTEROL 3 ML NEB INH PRN (22:57)
[2018-12-20] MEDS: NYSTATIN 500000 UNITS/5 ML UDC PO SCH ×5 (00:35→22:18)
[2018-12-20] MEDS: MONTELUKAST 10 MG TABLET PO SCH ×2 (00:35→22:16)
[2018-12-20] MEDS: SODIUM BICARBONATE 650 MG TABLET PO SCH ×3 (00:36→22:16)
[2018-12-20] MEDS: FAMOTIDINE 20 MG TABLET PO SCH ×3 (00:36→22:17)
[2018-12-20] MEDS: GABAPENTIN 400 MG CAPSULE PO SCH ×2 (00:36→13:26)
[2018-12-20] MEDS: oxyCODONE ER 10 MG TABLET PO SCH ×2 (00:36→09:04)
[2018-12-20] MEDS: ENOXAPARIN 40 MG/0.4 ML SYRINGE SUBQ SCH ×3 (00:38→22:23)
[2018-12-20] MEDS: TORSEMIDE 20 MG TABLET PO SCH ×2 (00:57→13:24)
[2018-12-20] MEDS: CHLORHEXIDINE GLUCONATE 15 ML UDC PO SCH (00:58)
[2018-12-20] MEDS ORDERED: SODIUM CHLORIDE 0.9% 500 ML IV ONE ×2 (01:02→21:05)
[2018-12-20] MEDS: SODIUM CHLORIDE FLUSH 0.9% 10 ML SYRINGE IVP SCH ×3 (01:07→18:11)
[2018-12-20] MEDS: MORPHINE 2 MG/ML CARPUJECT IVP PRN ×3 (06:12→22:37)
[2018-12-20 06:29] LABS: CHOL/HDL RATIO 5.3 (<5.0); CHOLESTEROL 154 mg/dL; HDL CHOLESTEROL 29 mg/dL; LDL CHOLESTEROL,CALCULATED 104 mg/dL; LDL/HDL RATIO 3.6 (<3.6); VLDL CHOLESTEROL 21 mg/dL
[2018-12-20] MEDS: FORMOTEROL FUMARATE NEB 20 MCG/2 ML INH SCH ×2 (07:40→19:32)
[2018-12-20] MEDS: IPRATROPIUM/ALBUTEROL 3 ML NEB INH PRN ×2 (07:40→19:32)
[2018-12-20] MEDS: BUDESONIDE 0.5 MG/2 ML NEB INH SCH ×2 (07:40→19:32)
[2018-12-20] MEDS ORDERED: AZITHROMYCIN INJ 500 MG in SODIUM CHLORIDE 0.9% 250 ML IV SCH (09:00)
[2018-12-20] MEDS: TAMSULOSIN 0.4 MG CAPSULE PO SCH (09:05)
[2018-12-20] MEDS: ASPIRIN CHEW 81 MG TABLET PO SCH (09:05)
[2018-12-20] MEDS: levETIRAcetam INJ 500 MG in SODIUM CHLORIDE 0.9% 100ML 100 ML IV SCH ×2 (09:49→22:18)
--- NOTE | 2018-12-20 09:55 | CONSULTATION NOTE ---
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 very fearful of . He has significant anxieties regarding this, though he continues to participate in fairly risky behaviors. Discussed given the context that he did have CPR, though may or may not have needed, he is willing to revisit the conversation, but asked that he stay a full code for at least a few more days. This is been fairly consistent with his decision making over the last couple years. Time Spent: 30 minutes was given 50% of this done in counseling regarding pain and symptom management, coordination of care with hospitalist wound care, and anticipatory guidance.
[2018-12-20] MEDS ORDERED: oxyCODONE ER 10 MG TABLET PO SCH ×2 (11:00→21:00)
[2018-12-20] MEDS ORDERED: oxyCODONE ER 10 MG TABLET PO ONE (13:00)
[2018-12-20] MEDS: oxyCODONE 5 MG TABLET PO PRN ×2 (13:22→19:10)
[2018-12-20] MEDS: POLYETHYLENE GLYCOL 3350 17 GM PACKET PO SCH (13:29)
[2018-12-20] MEDS: MEROPENEM 1 GM in SODIUM CHLORIDE 0.9% MINIBAG 100 ML IV SCH ×2 (13:45→22:42)
[2018-12-20] MEDS: DAPTOMYCIN IV SCH (16:28)
[2018-12-20] MEDS: SODIUM CHLORIDE 0.9% IV SCH (16:28)
--- NOTE | 2018-12-20 18:18 | PROVIDER PROGRESS NOTE ---
Subjective - Prog Note Date Prog Note Date: 12/20/18 - Subjective Pt reports feeling: Improved Subjective: pt is sleeping at the bed. pt has no seizure since admission. pt report to his palliative care Kari Steinberg, he still has lots of pain. Kari asked me add more dosage and frequency of Oxycodon to pt. Current Medications - Current Medications Current Medications: Active Medications Acetaminophen (Tylenol) 650 mg PO Q4HR PRN PRN Reason: Pain 1 to 4 Last Admin: 12/21/18 00:29 Dose: 650 mg Albuterol/Ipratropium (Duoneb) 3 ml INH Q4HR PRN PRN Reason: Wheezing Last Admin: 12/21/18 20:32 Dose: 3 ml Aspirin ([facility] [place] Aspirin) 81 mg PO DAILY [facility] Last Admin: 12/22/18 10:34 Dose: Not Given Atorvastatin Calcium (Lipitor) 10 mg PO QPM [facility] Last Admin: 12/21/18 21:21 Dose: Not Given Budesonide (Pulmicort) 0.5 mg INH RTBID [facility] Last Admin: 12/22/18 07:27 Dose: 0.5 mg Chlorhexidine Gluconate (Peridex) 15 ml PO Q7D [facility] Last Admin: 12/20/18 00:58 Dose: Not Given Diphenhydramine HCl (Benadryl) 25 mg PO Q6HR PRN PRN Reason: ITCHING Docusate Sodium (Colace 100mg Capsule) 100 mg PO BID PRN PRN Reason: Constipation Enoxaparin Sodium (Lovenox) 40 mg SUBQ HS [facility] Last Admin: 12/21/18 21:16 Dose: Not Given Famotidine (Pepcid) 20 mg PO BID [facility] Last Admin: 12/22/18 10:36 Dose: 20 mg Formoterol Fumarate (Perforomist) 20 mcg INH RTBID [facility] Last Admin: 12/22/18 07:27 Dose: 20 mcg Furosemide (Lasix) 20 mg PO BIDDIURETIC [facility] Last Admin: 12/22/18 15:04 Dose: 20 mg Gabapentin (Neurontin) 800 mg PO BID [facility] Last Admin: 12/22/18 10:46 Dose: 800 mg Guaifenesin (Mucinex) 600 mg PO BID [facility] Last Admin: 12/22/18 10:47 Dose: 600 mg Heparin Sodium (Beef Lung) () 30 - 50 unit IVP PRN PRN PRN Reason: Port Protocol (<24 hours) Last Admin: 12/22/18 11:41 Dose: 50 unit Meropenem 1 gm/ Sodium (Chloride) 100 mls @ 200 mls/hr IV Q8HR [facility] Last Admin: 12/22/18 14:48 Dose: 200 mls/hr Daptomycin 708 mg/ Sodium (Chloride) 100 mls @ 200 mls/hr IV Q24H [facility] Last Infusion: 12/21/18 16:57 Dose: Infused Lactobacillus Rhamnosus (Culturelle) 1 cap PO DAILY [facility] Last Admin: 12/22/18 10:48 Dose: 1 cap Levetiracetam (Keppra) 500 mg PO BID [facility] Last Admin: 12/22/18 10:47 Dose: 500 mg Lidocaine (Lidoderm Patch) 2 patch TOP DAILY PRN PRN Reason: PAIN Last Admin: 12/20/18 19:15 Dose: 1 patch Lorazepam (Ativan Inj (Vial)) 2 mg IVP Q2H PRN PRN Reason: seizures Magnesium Oxide (Mag Ox) 400 mg PO DAILYWM [facility] Last Admin: 12/22/18 08:09 Dose: 400 mg Midodrine () 10 mg PO TID PRN PRN Reason: SBP<100 Montelukast Sodium (Singulair) 10 mg PO QPM [facility] Last Admin: 12/21/18 21:16 Dose: 10 mg Morphine Sulfate (Morphine (Carpuject)) 2 mg IVP Q2HR PRN PRN Reason: Pain 8 to 10 Last Admin: 12/22/18 11:16 Dose: 2 mg Naloxone HCl (Narcan) 2 mg IVP PRN PRN PRN Reason: opiod od Nystatin (Mycostatin) 5 ml PO QID [facility] Last Admin: 12/22/18 15:04 Dose: 5 ml Ondansetron HCl (Zofran Odt) 4 mg TL Q6HR PRN PRN Reason: Nausea / Vomiting Last Admin: 12/21/18 09:29 Dose: 4 mg Oxycodone HCl (Roxicodone) 10 mg PO Q4HR PRN PRN Reason: Pain 5 to 7 Last Admin: 12/22/18 08:06 Dose: 10 mg Melatonin 3 Mg 1 each PO QPM PRN PRN Reason: Insomnia Polyethylene Glycol (Miralax) 17 gm PO DAILY [facility] Last Admin: 12/22/18 11:02 Dose: 17 gm Polyethylene Glycol (Miralax) 17 gm PO DAILY PRN PRN Reason: Constipation Prochlorperazine Edisylate (Compazine Inj) 10 mg IVP Q6HR PRN PRN Reason: Nausea / Vomiting Saccharomyces Boulardii ([facility]astor) [facility] Last Admin: 12/22/18 08:09 Dose: 500 mg Senna (Senokot) 8.6 mg PO BID PRN PRN Reason: Constipation Sodium Bicarbonate (Sodium Bicarbonate) 650 mg PO BID [facility] Last Admin: 12/22/18 10:48 Dose: 650 mg Sodium Chloride (Normal Saline Flush 0.9%) 10 ml IVP PRN PRN PRN Reason: NEEDED PER PROVIDER ORDERS Last Admin: 12/22/18 11:39 Dose: 10 ml Sodium Chloride (Normal Saline Flush 0.9%) 10 ml IVP 0100,0900,1700 [facility] Last Admin: 12/22/18 11:16 Dose: 10 ml Sodium Chloride (Normal Saline Flush 0.9%) 20 ml IVP PRN PRN PRN Reason: After Blood Draw Tamsulosin HCl (Flomax) 0.4 mg PO DAILY [facility] Last Admin: 12/22/18 10:48 Dose: 0.4 mg Lorazepam [Ativan] 1 mg PO Q8HR PRN 09/23/15 Tamsulosin [Flomax] 0.4 mg PO DAILY 06/29/16 Oxycodone HCl 10 - 20 mg PO Q4HR PRN MDD 8 tabs 07/26/17 Lidocaine Ointment 5% [Xylocaine Ointment 5%] 1 appful TOP PRN PRN 08/20/17 Potassium Chloride [K-Dur] 40 meq PO BID 08/30/17 Gabapentin [Neurontin] 1,600 mg PO BID 09/27/17 Albuterol Sulf [Ventolin Hfa Inhaler] 2 puffs INH Q4HR PRN 05/09/18 Melatonin 3 - 6 mg PO QPM PRN 05/09/18 Vitamin B Complex/Folic Acid [Vitamin B-100 Complex Tablet] 1 tab PO DAILY 05/09/18 Nystatin 5 ml PO QID 10/04/18 diphenhydrAMINE [Benadryl] 25 mg PO Q6HR PRN 10/04/18 Sennosides/Docusate Sodium [Docusate Sodium-Senna Tablet] 1 tab PO BID PRN 11/13/18 Chlorhexidine Gluconate [Peridex] 15 ml PO DAILY 12/18/18 Esomeprazole Magnesium [Nexium] 20 mg PO DAILY 12/18/18 Magnesium 250 mg PO DAILY 12/18/18 Oxycodone HCl [Oxycontin] 20 mg PO TID 12/18/18 Polyethylene Glycol 3350 [Miralax] 17 gm PO DAILY PRN 12/18/18 Torsemide 20 mg PO BID 12/19/18 Budesonide/Formoterol Fumarate [Symbicort 160-4.5 Mcg Inhaler] 2 puffs IH BID 12/20/18 hydrOXYzine PAMOATE [Vistaril] 25 mg PO TID PRN 12/20/18 Objective - Vital Signs/Intake & Output Reviewed Vital Signs: Yes Vital Signs: Vital Signs x48h Temp Pulse Pulse Resp Resp BP BP 12/20/18 15:31 37.4 C 99 98/61 12/20/18 13:29 37.3 C 104 H 20 97/56 L 12/20/18 11:45 105 H 18 111/66 Pulse Ox Pulse Ox 12/20/18 15:31 98 12/20/18 13:29 91 L 12/20/18 11:45 86 L Intake & Output: Intake & Output 12/17/18 12/18/18 12/19/18 12/20/18 23:59 23:59 23:59 23:59 Intake Total 2227.5 2845 Output Total 950 3925 Balance 1277.5 -1080 - Objective General Appearance: positive: No acute distress, Alert. negative: Lethargic Eyes Bilateral: positive: Normal inspection, PERRL, No lid inflammation, Conjunctivae nml ENT: positive: ENT inspection nml, Pharynx nml, No signs of dehydration. negative: Purulent nasal drainage, Pharyngeal erythema, Oral lesions Neck: positive: Nml inspection, Thyroid nml, No JVD, Trachea midline. negative: Thyromegaly, Lymphadenopathy (R), Lymphadenopathy (L), Stiff neck Respiratory: positive: Chest non-tender, No respiratory distress. negative: Wheezes, Rales, Rhonchi Cardiovascular: positive: Regular rate & rhythm, No murmur, No gallop, Irregular ly irregular. negative: Extrasystoles, Tachycardia, Bradycardia, JVD present, Systolic murmur, Diastolic murmur Peripheral Pulses: 2+ Radial (R), 2+ Radial (L), 2+ Dorsalis pedis (R), 2+ Dorsalis pedis (L) Abdomen: positive: Non-tender, No organomegaly, Nml bowel sounds, No distention. negative: Tenderness, Guarding, Rebound Back: positive: Nml inspection. negative: CVA tenderness (R), CVA tenderness (L) Skin: positive: Warm, Dry. negative: Cyanosis, Diaphoresis, Pallor Extremities: positive: Non-tender. negative: Calf tenderness, Joint swelling, Abhijit's sign/cords Neurologic/Psychiatric: negative: Weakness, Sensory loss, Facial droop, S lurred/abnml speech, Depressed mood/affect - Lab Results Fish Bones: 12/22/18 06:25 12/22/18 06:30 Other Labs: Lab Results x24hrs 12/20/18 12/19/18 12/19/18 Range/Units 05:36 21:24 21:18 Lactic Acid 0.6 (0.5-2.2) mmol/L Magnesium (1.7-2.8) mg/dL B-Natriuretic Peptide (5-100) pg/mL Triglycerides 106 ( - 149) mg/dL Cholesterol 154 ( - 199) mg/dL LDL Cholesterol, Calc 104 ( - 129) mg/dL VLDL Cholesterol 21 mg/dL HDL Cholesterol 29 L (60 - ) mg/dL LDL/HDL Ratio 3.6 (<3.6) Cholesterol/HDL Ratio 5.3 (<5.0) TSH (0.34-5.60) uIU/mL Urine Color YELLOW Urine Clarity CLEAR (CLEAR) Urine pH 6.0 (5.0-7.5) PH Ur Specific [place] <=1.005 (1.002-1.030) Urine Protein NEGATIVE (NEGATIVE) mg/dL Urine Glucose (UA) NEGATIVE (NEGATIVE) mg/dL Urine Ketones NEGATIVE (NEGATIVE) mg/dL Urine Occult Blood NEGATIVE (NEGATIVE) Urine Nitrite NEGATIVE (NEGATIVE) Urine Bilirubin NEGATIVE (NEGATIVE) Urine Urobilinogen 0.2 (NORMAL) (NORMAL) E.U./dL Ur Leukocyte Esterase NEGATIVE (NEGATIVE) Ur Microscopic Review NOT INDICATED Urine Culture Comments NOT INDICATED 12/19/18 12/19/18 12/19/18 Range/Units 16:40 16:15 16:15 Lactic Acid > 10.0 H* (0.5-2.2) mmol/L Magnesium (1.7-2.8) mg/dL B-Natriuretic Peptide 101 H (5-100) pg/mL Triglycerides ( - 149) mg/dL Cholesterol ( - 199) mg/dL LDL Cholesterol, Calc ( - 129) mg/dL VLDL Cholesterol mg/dL HDL Cholesterol (60 - ) mg/dL LDL/HDL Ratio (<3.6) Cholesterol/HDL Ratio (<5.0) TSH 2.49 (0.34-5.60) uIU/mL Urine Color Urine Clarity (CLEAR) Urine pH (5.0-7.5) PH Ur Specific [place] (1.002-1.030) Urine Protein (NEGATIVE) mg/dL Urine Glucose (UA) (NEGATIVE) mg/dL Urine Ketones (NEGATIVE) mg/dL Urine Occult Blood (NEGATIVE) Urine Nitrite (NEGATIVE) Urine Bilirubin (NEGATIVE) Urine Urobilinogen (NORMAL) E.U./dL Ur Leukocyte Esterase (NEGATIVE) Ur Microscopic Review Urine Culture Comments 12/19/18 Range/Units 16:15 Lactic Acid (0.5-2.2) mmol/L Magnesium 2.2 (1.7-2.8) mg/dL B-Natriuretic Peptide (5-100) pg/mL Triglycerides ( - 149) mg/dL Cholesterol ( - 199) mg/dL LDL Cholesterol, Calc ( - 129) mg/dL VLDL Cholesterol mg/dL HDL Cholesterol (60 - ) mg/dL LDL/HDL Ratio (<3.6) Cholesterol/HDL Ratio (<5.0) TSH (0.34-5.60) uIU/mL Urine Color Urine Clarity (CLEAR) Urine pH (5.0-7.5) PH Ur Specific [place] (1.002-1.030) Urine Protein (NEGATIVE) mg/dL Urine Glucose (UA) (NEGATIVE) mg/dL Urine Ketones (NEGATIVE) mg/dL Urine Occult Blood (NEGATIVE) Urine Nitrite (NEGATIVE) Urine Bilirubin (NEGATIVE) Urine Urobilinogen (NORMAL) E.U./dL Ur Leukocyte Esterase (NEGATIVE) Ur Microscopic Review Urine Culture Comments ABX Reporting Has patient been on IV antibiotics over the past 48 hours?: Yes Sepsis Event Note (H) - Evaluation Current Stage of Sepsis: Ruled out Assessment/Plan - Problem List (1) Seizure Impression: pt has hx of seizure since he had brain surgery. but pt has non compliance his medical treatment, report he did not take his seizure meds continue Keppra seizure precaution. 2. Acute cardiopulmonary arrest status post CPR hemodynamic stable now continue tele and vital monitor 3. Acute pulmonary contusion and associated rib fractures sec to CPR continue pain control, but precaution of pt's respiratory status incentive spirometer 4. Hypotensive event hold pt's BP meds now will reduce pt's pain meds to remain his BP level continue vital monitor 5. Acute respiratory arrest with transient hypoxia stable, continue RT and breath treatment supple O2 as needed 6. COPD w/o exacerabation continue Duoneb and pulmocord as needed 7. 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 PVD with ischemic ulcer to right lateral foot, recent left foot infection s/p IV daptomycin continue wound care and wound consult continue Dr. Fleming's ID recommendation to treat infection with Meropenem and Daptomycin 9. Chronic pain syndrome with opiate dependence/CBP pain control, precaution of hypotensive 10. Oropharyngeal Heather resolved 11. CAD stable, continue home continue tele and vital monitor 12. Medical noncompliance advise pt for medical compliance 13. Chronic tobacco use/dependence advise pt quit tobacco
[2018-12-20 18:50] LABS: BASOPHILS # (AUTO) 0.1 10^3/uL (0.0-0.1); BASOPHILS % (AUTO) 0.9 %; EOSINOPHILS # (AUTO) 0.3 10^3/uL (0.0-0.7); EOSINOPHILS % (AUTO) 3.3 %; HGB - HEMOGLOBIN 10.6 g/dL (14.0-18.0); LYMPHOCYTES # (AUTO) 1.2 10^3/uL (1.5-3.5); LYMPHOCYTES % (AUTO) 14.8 %; MEAN CORPUSCULAR HEMOGLOBIN 27.7 pg (27.0-31.0); MEAN CORPUSCULAR HGB CONC 31.7 g/dL (32.0-36.0); MEAN CORPUSCULAR VOLUME 87.4 fL (80.0-94.0); MEAN PLATELET VOLUME 9.1 fL (7.4-11.4); MONOCYTES % (AUTO) 12.2 %; NEUTROPHILS # (AUTO) 5.3 10^3/uL (1.5-6.6); NEUTROPHILS % (AUTO) 68.3 %; PLT - PLATELET COUNT 144 10^3/uL (130-450); RED BLOOD COUNT 3.82 10^6/uL (4.70-6.10); RED CELL DISTRIBUTION WIDTH 18.9 % (12.0-15.0); WHITE BLOOD COUNT 7.8 x10^3/uL (4.8-10.8)
[2018-12-20 18:52] LABS: ALBUMIN 3.2 g/dL (3.2-5.5); BILIRUBIN,TOTAL 0.9 mg/dL (0.2-1.0); CALCIUM 8.3 mg/dL (8.5-10.3); TOTAL PROTEIN 6.4 g/dL (6.7-8.2)
[2018-12-20] MEDS ORDERED: SODIUM CHLORIDE 0.9% 1,000 ML IV SCH (19:00)
[2018-12-20] MEDS: LIDOCAINE PATCH 5% TOP PRN (19:15)
[2018-12-20] MEDS ORDERED: NALOXONE 0.4 MG/ML VIAL IVP PRN (21:11)
[2018-12-20] MEDS: ATORVASTATIN 10 MG TABLET PO SCH (22:16)
[2018-12-20] MEDS: SODIUM CHLORIDE 0.9% 1,000 ML IV SCH (22:18)
[2018-12-21] MEDS: SODIUM CHLORIDE FLUSH 0.9% 10 ML SYRINGE IVP SCH ×4 (00:28→16:34)
[2018-12-21] MEDS: ACETAMINOPHEN 325 MG TABLET PO PRN (00:29)
[2018-12-21] MEDS: MORPHINE 2 MG/ML CARPUJECT IVP PRN ×3 (01:28→16:34)
--- NOTE | 2018-12-21 03:22 | XRAY Report ---
Reason: fevers Procedure Date: 12/21/2018 Accession Number: [id number] / [id number] Procedure: XR - Chest 1 View X-Ray CPT Code: 90089 FULL RESULT: EXAM: CHEST RADIOGRAPHY EXAM DATE: 12/21/2018 03:17 AM. CLINICAL HISTORY: Fevers. Recent CPR. COMPARISON: CHEST 1 VIEW 12/19/2018 4:37 PM. TECHNIQUE: 1 view. FINDINGS: Lungs/Pleura: Pulmonary vascular congestion with probable interstitial edema. Mild bibasilar atelectasis or infiltrate. Small pleural effusions. No pneumothorax. Mediastinum: Mild cardiomegaly. Other: Left sided Port-A-Cath with the tip in the upper SVC. IMPRESSION: 1. Cardiomegaly and pulmonary vascular congestion with probable interstitial edema and small pleural effusions. 2. Mild bibasilar atelectasis or infiltrate. RADIA
[2018-12-21] MEDS: MEROPENEM 1 GM in SODIUM CHLORIDE 0.9% MINIBAG 100 ML IV SCH ×3 (05:42→22:04)
[2018-12-21 06:59] LABS: BASOPHILS # (AUTO) 0.1 10^3/uL (0.0-0.1); BASOPHILS % (AUTO) 0.8 %; EOSINOPHILS # (AUTO) 0.3 10^3/uL (0.0-0.7); EOSINOPHILS % (AUTO) 4.2 %; HGB - HEMOGLOBIN 10.4 g/dL (14.0-18.0); LYMPHOCYTES # (AUTO) 1.2 10^3/uL (1.5-3.5); LYMPHOCYTES % (AUTO) 15.7 %; MEAN CORPUSCULAR HEMOGLOBIN 28.7 pg (27.0-31.0); MEAN CORPUSCULAR HGB CONC 32.3 g/dL (32.0-36.0); MEAN PLATELET VOLUME 9.5 fL (7.4-11.4); MONOCYTES % (AUTO) 13.1 %; NEUTROPHILS # (AUTO) 5.1 10^3/uL (1.5-6.6); NEUTROPHILS % (AUTO) 65.6 %; PLT - PLATELET COUNT 143 10^3/uL (130-450); RED BLOOD COUNT 3.62 10^6/uL (4.70-6.10); RED CELL DISTRIBUTION WIDTH 18.8 % (12.0-15.0); WHITE BLOOD COUNT 7.8 x10^3/uL (4.8-10.8)
[2018-12-21] MEDS: FORMOTEROL FUMARATE NEB 20 MCG/2 ML INH SCH ×2 (07:08→20:32)
[2018-12-21 07:09] LABS: ALBUMIN 2.8 g/dL (3.2-5.5); ALBUMIN/GLOBULIN RATIO 0.9 (1.0-2.2); BILIRUBIN,TOTAL 1.3 mg/dL (0.2-1.0); CALCIUM 7.9 mg/dL (8.5-10.3); CREATININE 1.1 mg/dL (0.6-1.2); MAGNESIUM 1.6 mg/dL (1.7-2.8); TOTAL PROTEIN 5.9 g/dL (6.7-8.2)
[2018-12-21] MEDS: BUDESONIDE 0.5 MG/2 ML NEB INH SCH ×2 (07:09→20:32)
[2018-12-21] MEDS: oxyCODONE 5 MG TABLET PO PRN ×3 (07:54→17:24)
[2018-12-21] MEDS ORDERED: POTASSIUM CHLORIDE 20 MEQ TABLET PO ONE (08:31)
[2018-12-21] MEDS ORDERED: POTASSIUM CHLOR 10 MEQ/100 ML 10 MEQ/100 ML BAG IV ONE ×2 (08:32→10:00)
[2018-12-21 08:35] LABS: BILIRUBIN,URINE NEGATIVE (NEGATIVE); GLUCOSE, URINE (UA) NEGATIVE (NEGATIVE); KETONES,URINE (UA) NEGATIVE (NEGATIVE); LEUKOCYTE ESTERASE, URINE NEGATIVE (NEGATIVE); NITRITE,URINE NEGATIVE (NEGATIVE); OCCULT BLOOD,URINE NEGATIVE (NEGATIVE); PROTEIN,URINE NEGATIVE (NEGATIVE); UROBILINOGEN,URINE 0.2 (NORMAL) E.U./dL (NORMAL)
[2018-12-21 08:38] LABS: CLARITY,URINE CLEAR (CLEAR)
[2018-12-21 08:44] LABS: BACTERIA,URINE Rare /HPF (None Seen); RBC,URINE 0-5 /HPF (0-5); SQUAMOUS EPITHELIAL CELL,UR FEW Squamous (<= Few)
[2018-12-21] MEDS: ONDANSETRON ODT 4 MG TABLET TL PRN (09:29)
[2018-12-21] MEDS ORDERED: MAGNESIUM SULFATE 1 GM in SODIUM CHLORIDE 0.9% 50 ML IV ONE (10:00)
[2018-12-21] MEDS: MAGNESIUM OXIDE 400 MG TABLET PO SCH (11:08)
[2018-12-21] MEDS: SODIUM BICARBONATE 650 MG TABLET PO SCH ×2 (11:09→21:16)
[2018-12-21] MEDS: LACTOBACILLUS RHAMNOSUS GG CAPSULE PO SCH (11:11)
[2018-12-21] MEDS: levETIRAcetam 250 MG TABLET PO SCH ×2 (11:12→11:16)
[2018-12-21] MEDS: TAMSULOSIN 0.4 MG CAPSULE PO SCH (11:17)
[2018-12-21] MEDS: NYSTATIN 500000 UNITS/5 ML UDC PO SCH ×4 (11:18→21:16)
[2018-12-21] MEDS: POLYETHYLENE GLYCOL 3350 17 GM PACKET PO SCH (11:18)
[2018-12-21] MEDS: ASPIRIN CHEW 81 MG TABLET PO SCH (11:19)
[2018-12-21] MEDS: SACCHAROMYCES BOULARDII 250 MG CAPSULE PO SCH ×2 (11:20→17:21)
[2018-12-21] MEDS: FAMOTIDINE 20 MG TABLET PO SCH ×2 (11:22→21:16)
[2018-12-21] MEDS: IPRATROPIUM/ALBUTEROL 3 ML NEB INH PRN ×2 (11:34→20:32)
[2018-12-21] MEDS: SODIUM CHLORIDE 0.9% 1,000 ML IV SCH (12:45)
[2018-12-21] MEDS: SODIUM CHLORIDE 0.9% IV SCH (16:27)
[2018-12-21] MEDS: DAPTOMYCIN IV SCH (16:27)
--- NOTE | 2018-12-21 18:22 | PROVIDER PROGRESS NOTE ---
Subjective - Prog Note Date Prog Note Date: 12/21/18 - Subjective Pt reports feeling: Improved Subjective: pt report he feel better and has appetite to eat. he denies seizure and admitted his medical noncompliance. he denies chest pain, shortness of breath. Current Medications - Current Medications Current Medications: Active Medications Acetaminophen (Tylenol) 650 mg PO Q4HR PRN PRN Reason: Pain 1 to 4 Last Admin: 12/21/18 00:29 Dose: 650 mg Albuterol () 2.5 mg INH RTQ4H PRN PRN Reason: Wheezing Albuterol/Ipratropium (Duoneb) 3 ml INH Q4HR PRN PRN Reason: Wheezing Last Admin: 12/21/18 20:32 Dose: 3 ml Aspirin ([place] Aspirin) 81 mg PO DAILY [facility] Last Admin: 12/22/18 10:34 Dose: Not Given Atorvastatin Calcium (Lipitor) 10 mg PO QPM [facility] Last Admin: 12/21/18 21:21 Dose: Not Given Budesonide (Pulmicort) 0.5 mg INH RTBID [facility] Last Admin: 12/22/18 07:27 Dose: 0.5 mg Chlorhexidine Gluconate (Peridex) 15 ml PO Q7D [facility] Last Admin: 12/20/18 00:58 Dose: Not Given Diphenhydramine HCl (Benadryl) 25 mg PO Q6HR PRN PRN Reason: ITCHING Docusate Sodium (Colace 100mg Capsule) 100 mg PO BID PRN PRN Reason: Constipation Enoxaparin Sodium (Lovenox) 40 mg SUBQ HS [facility] Last Admin: 12/21/18 21:16 Dose: Not Given Famotidine (Pepcid) 20 mg PO BID [facility] Last Admin: 12/22/18 10:36 Dose: 20 mg Formoterol Fumarate (Perforomist) 20 mcg INH RTBID [facility] Last Admin: 12/22/18 07:27 Dose: 20 mcg Furosemide (Lasix) 20 mg PO BIDDIURETIC [facility] Last Admin: 12/22/18 15:04 Dose: 20 mg Gabapentin (Neurontin) 800 mg PO BID [facility] Last Admin: 12/22/18 10:46 Dose: 800 mg Guaifenesin (Mucinex) 600 mg PO BID [facility] Last Admin: 12/22/18 10:47 Dose: 600 mg Heparin Sodium (Beef Lung) () 30 - 50 unit IVP PRN PRN PRN Reason: Port Protocol (<24 hours) Last Admin: 12/22/18 11:41 Dose: 50 unit Meropenem 1 gm/ Sodium (Chloride) 100 mls @ 200 mls/hr IV Q8HR [facility] Last Admin: 12/22/18 14:48 Dose: 200 mls/hr Daptomycin 708 mg/ Sodium (Chloride) 100 mls @ 200 mls/hr IV Q24H [facility] Last Infusion: 12/21/18 16:57 Dose: Infused Lactobacillus Rhamnosus (Culturelle) 1 cap PO DAILY [facility] Last Admin: 12/22/18 10:48 Dose: 1 cap Levetiracetam (Keppra) 500 mg PO BID [facility] Last Admin: 12/22/18 10:47 Dose: 500 mg Lidocaine (Lidoderm Patch) 2 patch TOP DAILY PRN PRN Reason: PAIN Last Admin: 12/20/18 19:15 Dose: 1 patch Lorazepam (Ativan Inj (Vial)) 2 mg IVP Q2H PRN PRN Reason: seizures Magnesium Oxide (Mag Ox) 400 mg PO DAILYWM [facility] Last Admin: 12/22/18 08:09 Dose: 400 mg Midodrine () 10 mg PO TID PRN PRN Reason: SBP<100 Montelukast Sodium (Singulair) 10 mg PO QPM [facility] Last Admin: 12/21/18 21:16 Dose: 10 mg Morphine Sulfate (Morphine (Carpuject)) 2 mg IVP Q2HR PRN PRN Reason: Pain 8 to 10 Last Admin: 12/22/18 15:21 Dose: 2 mg Naloxone HCl (Narcan) 2 mg IVP PRN PRN PRN Reason: opiod od Nystatin (Mycostatin) 5 ml PO QID [facility] Last Admin: 12/22/18 15:04 Dose: 5 ml Ondansetron HCl (Zofran Odt) 4 mg TL Q6HR PRN PRN Reason: Nausea / Vomiting Last Admin: 12/21/18 09:29 Dose: 4 mg Oxycodone HCl (Roxicodone) 10 mg PO Q4HR PRN PRN Reason: Pain 5 to 7 Last Admin: 12/22/18 08:06 Dose: 10 mg Melatonin 3 Mg 1 each PO QPM PRN PRN Reason: Insomnia Polyethylene Glycol (Miralax) 17 gm PO DAILY [facility] Last Admin: 12/22/18 11:02 Dose: 17 gm Polyethylene Glycol (Miralax) 17 gm PO DAILY PRN PRN Reason: Constipation Prochlorperazine Edisylate (Compazine Inj) 10 mg IVP Q6HR PRN PRN Reason: Nausea / Vomiting Saccharomyces Boulardii (Florastor) 500 mg PO BIDWM [facility] Last Admin: 12/22/18 08:09 Dose: 500 mg Senna (Senokot) 8.6 mg PO BID PRN PRN Reason: Constipation Sodium Bicarbonate (Sodium Bicarbonate) 650 mg PO BID [facility] Last Admin: 12/22/18 10:48 Dose: 650 mg Sodium Chloride (Normal Saline Flush 0.9%) 10 ml IVP PRN PRN PRN Reason: NEEDED PER PROVIDER ORDERS Last Admin: 12/22/18 11:39 Dose: 10 ml Sodium Chloride (Normal Saline Flush 0.9%) 10 ml IVP 0100,0900,1700 [facility] Last Admin: 12/22/18 15:22 Dose: 10 ml Sodium Chloride (Normal Saline Flush 0.9%) 20 ml IVP PRN PRN PRN Reason: After Blood Draw Last Admin: 12/22/18 15:29 Dose: 10 ml Tamsulosin HCl (Flomax) 0.4 mg PO DAILY [facility] Last Admin: 12/22/18 10:48 Dose: 0.4 mg Lorazepam [Ativan] 1 mg PO Q8HR PRN 09/23/15 Tamsulosin [Flomax] 0.4 mg PO DAILY 06/29/16 Oxycodone HCl 10 - 20 mg PO Q4HR PRN MDD 8 tabs 07/26/17 Lidocaine Ointment 5% [Xylocaine Ointment 5%] 1 appful TOP PRN PRN 08/20/17 Potassium Chloride [K-Dur] 40 meq PO BID 08/30/17 Gabapentin [Neurontin] 1,600 mg PO BID 09/27/17 Albuterol Sulf [Ventolin Hfa Inhaler] 2 puffs INH Q4HR PRN 05/09/18 Melatonin 3 - 6 mg PO QPM PRN 05/09/18 Vitamin B Complex/Folic Acid [Vitamin B-100 Complex Tablet] 1 tab PO DAILY 05/09/18 Nystatin 5 ml PO QID 10/04/18 diphenhydrAMINE [Benadryl] 25 mg PO Q6HR PRN 10/04/18 Sennosides/Docusate Sodium [Docusate Sodium-Senna Tablet] 1 tab PO BID PRN 11/13/18 Chlorhexidine Gluconate [Peridex] 15 ml PO DAILY 12/18/18 Esomeprazole Magnesium [Nexium] 20 mg PO DAILY 12/18/18 Magnesium 250 mg PO DAILY 12/18/18 Oxycodone HCl [Oxycontin] 20 mg PO TID 12/18/18 Polyethylene Glycol 3350 [Miralax] 17 gm PO DAILY PRN 12/18/18 Torsemide 20 mg PO BID 12/19/18 Budesonide/Formoterol Fumarate [Symbicort 160-4.5 Mcg Inhaler] 2 puffs IH BID hydrOXYzine PAMOATE [Vistaril] 25 mg PO TID PRN 12/20/18 Objective - Vital Signs/Intake & Output Reviewed Vital Signs: Yes Vital Signs: Vital Signs x48h Temp Pulse Pulse Resp BP BP Pulse Ox 12/21/18 17:27 37.1 C 18 105/67 12/21/18 16:22 123 H 20 109/62 89 L 12/21/18 13:31 133 H 114/78 12/21/18 13:00 129 H 21 92/74 92 Pulse Ox 12/21/18 17:27 12/21/18 16:22 12/21/18 13:31 92 12/21/18 13:00 Intake & Output: Intake & Output 12/18/18 12/19/18 12/20/18 12/21/18 23:59 23:59 23:59 23:59 Intake Total 2227.5 3100 3750 Output Total 950 3925 1075 Balance 1277.5 -825 2675 - Objective General Appearance: positive: No acute distress, Alert. negative: Lethargic Eyes Bilateral: positive: Normal inspection, PERRL, No lid inflammation, Conjunctivae nml ENT: positive: ENT inspection nml, Pharynx nml, No signs of dehydration. negative: Purulent nasal drainage, Pharyngeal erythema, Oral lesions Neck: positive: Nml inspection, Thyroid nml, No JVD, Trachea midline. negative: Thyromegaly, Lymphadenopathy (R), Lymphadenopathy (L), Stiff neck, Swelling/bruising, Tracheal deviation Respiratory: positive: Chest non-tender, No respiratory distress. negative: Wheezes, Rales, Rhonchi Cardiovascular: positive: Regular rate & rhythm, No murmur, No gallop. negative: Irregularly irregular, Extrasystoles, Tachycardia, Bradycardia, JVD present, Systolic murmur, Diastolic murmur Peripheral Pulses: 2+ Radial (R), 2+ Radial (L), 2+ Dorsalis pedis (R), 2+ Dorsalis pedis (L) Abdomen: positive: Non-tender, No organomegaly, Nml bowel sounds, No distention. negative: Tenderness, Guarding, Rebound Back: positive: Nml inspection. negative: CVA tenderness (R), CVA tenderness (L) Skin: positive: Warm, Dry. negative: Cyanosis, Diaphoresis, Pallor Extremities: positive: Non-tender. negative: Calf tenderness, Joint swelling, Abhijit's sign/cords Neurologic/Psychiatric: positive: Oriented x3, Sensation nml. negative: Weakness, Sensory loss, Facial droop, Slurred/abnml speech, Depressed mood/affect - Lab Results Fish Bones: 12/22/18 06:25 12/22/18 06:30 Other Labs: Lab Results x24hrs 12/21/18 12/21/18 12/21/18 Range/Units 07:50 06:30 06:30 WBC 7.8 (4.8-10.8) x10^3/uL RBC 3.62 L (4.70-6.10) 10^6/uL Hgb 10.4 L (14.0-18.0) g/dL Hct 32.2 L (42.0-52.0) % MCV 89.0 (80.0-94.0) fL MCH 28.7 (27.0-31.0) pg MCHC 32.3 (32.0-36.0) g/dL RDW 18.8 H (12.0-15.0) % Plt Count 143 (130-450) 10^3/uL MPV 9.5 (7.4-11.4) fL Neut # (Auto) 5.1 (1.5-6.6) 10^3/uL Lymph # (Auto) 1.2 L (1.5-3.5) 10^3/uL [place] # (Auto) 1.0 (0.0-1.0) 10^3/uL Eos # (Auto) 0.3 (0.0-0.7) 10^3/uL Baso # (Auto) 0.1 (0.0-0.1) 10^3/uL Absolute Nucleated RBC 0.00 x10^3/uL Nucleated RBC % 0.0 /100WBC Sodium 138 (135-145) mmol/L Potassium 2.9 L (3.5-5.0) mmol/L Chloride 104 (101-111) mmol/L Carbon Dioxide 25 (21-32) mmol/L Anion Gap 9.0 (6-13) BUN 7 (6-20) mg/dL Creatinine 1.1 (0.6-1.2) mg/dL Estimated GFR (MDRD) 69 L (>89) Glucose 103 H (70-100) mg/dL Calcium 7.9 L (8.5-10.3) mg/dL Magnesium 1.6 L (1.7-2.8) mg/dL Total Bilirubin 1.3 H (0.2-1.0) mg/dL AST 15 (10-42) IU/L ALT 10 (10-60) IU/L Alkaline Phosphatase 54 (42-121) IU/L Total Protein 5.9 L (6.7-8.2) g/dL Albumin 2.8 L (3.2-5.5) g/dL Globulin 3.1 (2.1-4.2) g/dL Albumin/Globulin Ratio 0.9 L (1.0-2.2) Urine Color DARK YELLOW Urine Clarity CLEAR (CLEAR) Urine pH 6.0 (5.0-7.5) PH Ur Specific [place] 1.015 (1.002-1.030) Urine Protein NEGATIVE (NEGATIVE) mg/dL Urine Glucose (UA) NEGATIVE (NEGATIVE) mg/dL Urine Ketones NEGATIVE (NEGATIVE) mg/dL Urine Occult Blood NEGATIVE (NEGATIVE) Urine Nitrite NEGATIVE (NEGATIVE) Urine Bilirubin NEGATIVE (NEGATIVE) Urine Urobilinogen 0.2 (NORMAL) (NORMAL) E.U./dL Ur Leukocyte Esterase NEGATIVE (NEGATIVE) Urine RBC 0-5 (0-5) /HPF Urine WBC 0-3 (0-3) /HPF Ur Squamous Epith Cells FEW Squamous (<= Few) Urine Bacteria Rare (None Seen) /HPF Urine Culture Comments NOT INDICATED 12/20/18 12/20/18 Range/Units 18:25 18:25 WBC 7.8 (4.8-10.8) x10^3/uL RBC 3.82 L (4.70-6.10) 10^6/uL Hgb 10.6 L (14.0-18.0) g/dL Hct 33.4 L (42.0-52.0) % MCV 87.4 (80.0-94.0) fL MCH 27.7 (27.0-31.0) pg MCHC 31.7 L (32.0-36.0) g/dL RDW 18.9 H (12.0-15.0) % Plt Count 144 (130-450) 10^3/uL MPV 9.1 (7.4-11.4) fL Neut # (Auto) 5.3 (1.5-6.6) 10^3/uL Lymph # (Auto) 1.2 L (1.5-3.5) 10^3/uL [place] # (Auto) 1.0 (0.0-1.0) 10^3/uL Eos # (Auto) 0.3 (0.0-0.7) 10^3/uL Baso # (Auto) 0.1 (0.0-0.1) 10^3/uL Absolute Nucleated RBC 0.00 x10^3/uL Nucleated RBC % 0.0 /100WBC Sodium 139 (135-145) mmol/L Potassium 3.1 L (3.5-5.0) mmol/L Chloride 101 (101-111) mmol/L Carbon Dioxide 26 (21-32) mmol/L Anion Gap 12.0 (6-13) BUN 8 (6-20) mg/dL Creatinine 1.0 (0.6-1.2) mg/dL Estimated GFR (MDRD) 77 L (>89) Glucose 100 (70-100) mg/dL Calcium 8.3 L (8.5-10.3) mg/dL Magnesium (1.7-2.8) mg/dL Total Bilirubin 0.9 (0.2-1.0) mg/dL AST 20 (10-42) IU/L ALT 13 (10-60) IU/L Alkaline Phosphatase 56 (42-121) IU/L Total Protein 6.4 L (6.7-8.2) g/dL Albumin 3.2 (3.2-5.5) g/dL Globulin 3.2 (2.1-4.2) g/dL Albumin/Globulin Ratio 1.0 (1.0-2.2) Urine Color Urine Clarity (CLEAR) Urine pH (5.0-7.5) PH Ur Specific [place] (1.002-1.030) Urine Protein (NEGATIVE) mg/dL Urine Glucose (UA) (NEGATIVE) mg/dL Urine Ketones (NEGATIVE) mg/dL Urine Occult Blood (NEGATIVE) Urine Nitrite (NEGATIVE) Urine Bilirubin (NEGATIVE) Urine Urobilinogen (NORMAL) E.U./dL Ur Leukocyte Esterase (NEGATIVE) Urine RBC (0-5) /HPF Urine WBC (0-3) /HPF Ur Squamous Epith Cells (<= Few) Urine Bacteria (None Seen) /HPF Urine Culture Comments ABX Reporting Has patient been on IV antibiotics over the past 48 hours?: Yes Sepsis Event Note (H) - Evaluation Current Stage of Sepsis: Ruled out Assessment/Plan - Problem List (1) Seizure Impression: 12/21 pt has no seizure since pt was admitted continue Keppra, seizure precaution pt has hx of seizure since he had brain surgery. but pt has non compliance his medical treatment, report he did not take his seizure meds continue Keppra seizure precaution. 2. Acute cardiopulmonary arrest status post CPR hemodynamic stable now continue tele and vital monitor 3. Acute pulmonary contusion and associated rib fractures sec to CPR continue pain control, but precaution of pt's respiratory status incentive spirometer 4. Hypotensive event hold pt's BP meds now will reduce pt's pain meds to remain his BP level continue vital monitor 5. Acute respiratory arrest with transient hypoxia stable, continue RT and breath treatment supple O2 as needed 6. COPD w/o exacerabation continue Duoneb and pulmocord as needed 7. 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 PVD with ischemic ulcer to right lateral foot, recent left foot infection s/p IV daptomycin continue wound care and wound consult continue Dr. Fleming's ID recommendation to treat infection with Meropenem and Daptomycin 9. Chronic pain syndrome with opiate dependence/CBP pain control, precaution of hypotensive 10. Oropharyngeal Heather resolved 11. CAD stable, continue home continue tele and vital monitor 12. Medical noncompliance advise pt for medical compliance 13. Chronic tobacco use/dependence advise pt quit tobacco 14 weakness 12/21 consult with PT/OT, will followup 15, pneumonia CXR reveals pt has mild pulmonary edema with infiltrate continue meropenem and Daptomycin continue RT treatment add Lasix, lab monitor
[2018-12-21] MEDS: guaiFENesin 600 MG TABLET PO SCH (21:16)
[2018-12-21] MEDS: ENOXAPARIN 40 MG/0.4 ML SYRINGE SUBQ SCH (21:16)
[2018-12-21] MEDS: MONTELUKAST 10 MG TABLET PO SCH (21:16)
[2018-12-21] MEDS: ATORVASTATIN 10 MG TABLET PO SCH (21:21)
[2018-12-21] MEDS: GABAPENTIN 400 MG CAPSULE PO SCH (22:11)
[2018-12-22] MEDS: MORPHINE 2 MG/ML CARPUJECT IVP PRN ×3 (00:03→15:21)
[2018-12-22] MEDS: oxyCODONE 5 MG TABLET PO PRN ×4 (02:05→21:50)
[2018-12-22] MEDS: MEROPENEM 1 GM in SODIUM CHLORIDE 0.9% MINIBAG 100 ML IV SCH ×3 (06:21→21:40)
[2018-12-22 06:30] LABS: BASOPHILS # (AUTO) 0.1 10^3/uL (0.0-0.1); BASOPHILS % (AUTO) 0.6 %; EOSINOPHILS # (AUTO) 0.4 10^3/uL (0.0-0.7); EOSINOPHILS % (AUTO) 4.5 %; HGB - HEMOGLOBIN 10.2 g/dL (14.0-18.0); LYMPHOCYTES # (AUTO) 1.3 10^3/uL (1.5-3.5); LYMPHOCYTES % (AUTO) 15.7 %; MEAN CORPUSCULAR HEMOGLOBIN 28.4 pg (27.0-31.0); MEAN CORPUSCULAR HGB CONC 32.1 g/dL (32.0-36.0); MEAN CORPUSCULAR VOLUME 88.6 fL (80.0-94.0); MONOCYTES % (AUTO) 12.4 %; NEUTROPHILS # (AUTO) 5.4 10^3/uL (1.5-6.6); NEUTROPHILS % (AUTO) 66.3 %; PLT - PLATELET COUNT 136 10^3/uL (130-450); RED BLOOD COUNT 3.59 10^6/uL (4.70-6.10); RED CELL DISTRIBUTION WIDTH 18.3 % (12.0-15.0); WHITE BLOOD COUNT 8.2 x10^3/uL (4.8-10.8)
[2018-12-22 06:43] LABS: ALBUMIN 2.8 g/dL (3.2-5.5); ALBUMIN/GLOBULIN RATIO 0.9 (1.0-2.2); ALKALINE PHOSPHATASE 49 IU/L (42-121); ALT ALANINE AMINOTRANSFERASE < 10 IU/L (10-60); AST ASPARTATE AMINOTRANSFERASE 14 IU/L (10-42); BILIRUBIN,TOTAL 1.5 mg/dL (0.2-1.0); BUN - BLOOD UREA NITROGEN 7 mg/dL (6-20); CALCIUM 8.1 mg/dL (8.5-10.3); CARBON DIOXIDE - CO2 23 mmol/L (21-32); CHLORIDE 104 mmol/L (101-111); CREATININE 0.8 mg/dL (0.6-1.2); GFR - MDRD 100 (>89); GLUCOSE 99 mg/dL (70-100); SODIUM 137 mmol/L (135-145); TOTAL PROTEIN 5.9 g/dL (6.7-8.2)
[2018-12-22] MEDS: FORMOTEROL FUMARATE NEB 20 MCG/2 ML INH SCH ×2 (07:27→20:02)
[2018-12-22] MEDS: BUDESONIDE 0.5 MG/2 ML NEB INH SCH ×2 (07:27→20:02)
[2018-12-22] MEDS ORDERED: POTASSIUM CHLORIDE 20 MEQ TABLET PO ONE (08:01)
[2018-12-22] MEDS: SACCHAROMYCES BOULARDII 250 MG CAPSULE PO SCH ×2 (08:09→16:58)
[2018-12-22] MEDS: MAGNESIUM OXIDE 400 MG TABLET PO SCH (08:09)
[2018-12-22] MEDS: ASPIRIN CHEW 81 MG TABLET PO SCH (10:34)
[2018-12-22] MEDS: FAMOTIDINE 20 MG TABLET PO SCH ×2 (10:36→20:50)
[2018-12-22] MEDS: FUROSEMIDE 20 MG TABLET PO SCH ×2 (10:46→15:04)
[2018-12-22] MEDS: GABAPENTIN 400 MG CAPSULE PO SCH ×2 (10:46→20:50)
[2018-12-22] MEDS: levETIRAcetam 250 MG TABLET PO SCH ×2 (10:47→20:50)
[2018-12-22] MEDS: guaiFENesin 600 MG TABLET PO SCH ×2 (10:47→20:50)
[2018-12-22] MEDS: SODIUM BICARBONATE 650 MG TABLET PO SCH ×2 (10:48→20:50)
[2018-12-22] MEDS: LACTOBACILLUS RHAMNOSUS GG CAPSULE PO SCH (10:48)
[2018-12-22] MEDS: TAMSULOSIN 0.4 MG CAPSULE PO SCH (10:48)
[2018-12-22] MEDS: POLYETHYLENE GLYCOL 3350 17 GM PACKET PO SCH (11:02)
[2018-12-22] MEDS: NYSTATIN 500000 UNITS/5 ML UDC PO SCH ×4 (11:09→20:50)
[2018-12-22] MEDS: SODIUM CHLORIDE FLUSH 0.9% 10 ML SYRINGE IVP SCH ×2 (11:16→15:22)
[2018-12-22] MEDS: SODIUM CHLORIDE FLUSH 0.9% 10 ML SYRINGE IVP PRN (11:39)
--- NOTE | 2018-12-22 15:52 | PROVIDER PROGRESS NOTE ---
Subjective - Prog Note Date Prog Note Date: 12/22/18 - Subjective Pt reports feeling: Improved Subjective: pt is staying at bed to eat his breakfast. Discuss with pt the care plan, encourage pt out of the bed and ambulate safely as possible, at least to the chair. pt agree. I discuss with nurse for the care plan, let pt have more safely ambulation Current Medications - Current Medications Current Medications: Active Medications Acetaminophen (Tylenol) 650 mg PO Q4HR PRN PRN Reason: Pain 1 to 4 Last Admin: 12/21/18 00:29 Dose: 650 mg Albuterol () 2.5 mg INH RTQ4H PRN PRN Reason: Wheezing Albuterol/Ipratropium (Duoneb) 3 ml INH Q4HR PRN PRN Reason: Wheezing Last Admin: 12/21/18 20:32 Dose: 3 ml Aspirin (St Bogdan Aspirin) 81 mg PO DAILY [facility] Last Admin: 12/22/18 10:34 Dose: Not Given Atorvastatin Calcium (Lipitor) 10 mg PO QPM [facility] Last Admin: 12/21/18 21:21 Dose: Not Given Budesonide (Pulmicort) 0.5 mg INH RTBID [facility] Last Admin: 12/22/18 07:27 Dose: 0.5 mg Chlorhexidine Gluconate (Peridex) 15 ml PO Q7D [facility] Last Admin: 12/20/18 00:58 Dose: Not Given Diphenhydramine HCl (Benadryl) 25 mg PO Q6HR PRN PRN Reason: ITCHING Docusate Sodium (Colace 100mg Capsule) 100 mg PO BID PRN PRN Reason: Constipation Enoxaparin Sodium (Lovenox) 40 mg SUBQ HS [facility] Last Admin: 12/21/18 21:16 Dose: Not Given Famotidine (Pepcid) 20 mg PO BID [facility] Last Admin: 12/22/18 10:36 Dose: 20 mg Formoterol Fumarate (Perforomist) 20 mcg INH RTBID [facility] Last Admin: 12/22/18 07:27 Dose: 20 mcg Furosemide (Lasix) 20 mg PO BIDDIURETIC [facility] Last Admin: 12/22/18 15:04 Dose: 20 mg Gabapentin (Neurontin) 800 mg PO BID [facility] Last Admin: 12/22/18 10:46 Dose: 800 mg Guaifenesin (Mucinex) 600 mg PO BID [facility] Last Admin: 12/22/18 10:47 Dose: 600 mg Heparin Sodium (Beef Lung) () 30 - 50 unit IVP PRN PRN PRN Reason: Port Protocol (<24 hours) Last Admin: 12/22/18 11:41 Dose: 50 unit Meropenem 1 gm/ Sodium (Chloride) 100 mls @ 200 mls/hr IV Q8HR [facility] Last Infusion: 12/22/18 15:18 Dose: Infused Daptomycin 708 mg/ Sodium (Chloride) 100 mls @ 200 mls/hr IV Q24H [facility] Last Infusion: 12/21/18 16:57 Dose: Infused Lactobacillus Rhamnosus (Culturelle) 1 cap PO DAILY [facility] Last Admin: 12/22/18 10:48 Dose: 1 cap Levetiracetam (Keppra) 500 mg PO BID [facility] Last Admin: 12/22/18 10:47 Dose: 500 mg Lidocaine (Lidoderm Patch) 2 patch TOP DAILY PRN PRN Reason: PAIN Last Admin: 12/20/18 19:15 Dose: 1 patch Lorazepam (Ativan Inj (Vial)) 2 mg IVP Q2H PRN PRN Reason: seizures Magnesium Oxide (Mag Ox) 400 mg PO DAILYWM [facility] Last Admin: 12/22/18 08:09 Dose: 400 mg Midodrine () 10 mg PO TID PRN PRN Reason: SBP<100 Montelukast Sodium (Singulair) 10 mg PO QPM [facility] Last Admin: 12/21/18 21:16 Dose: 10 mg Morphine Sulfate (Morphine (Carpuject)) 2 mg IVP Q2HR PRN PRN Reason: Pain 8 to 10 Last Admin: 12/22/18 15:21 Dose: 2 mg Naloxone HCl (Narcan) 2 mg IVP PRN PRN PRN Reason: opiod od Nystatin (Mycostatin) 5 ml PO QID [facility] Last Admin: 12/22/18 15:04 Dose: 5 ml Ondansetron HCl (Zofran Odt) 4 mg TL Q6HR PRN PRN Reason: Nausea / Vomiting Last Admin: 12/21/18 09:29 Dose: 4 mg Oxycodone HCl (Roxicodone) 10 mg PO Q4HR PRN PRN Reason: Pain 5 to 7 Last Admin: 12/22/18 08:06 Dose: 10 mg Melatonin 3 Mg 1 each PO QPM PRN PRN Reason: Insomnia Polyethylene Glycol (Miralax) 17 gm PO DAILY [facility] Last Admin: 12/22/18 11:02 Dose: 17 gm Polyethylene Glycol (Miralax) 17 gm PO DAILY PRN PRN Reason: Constipation Prochlorperazine Edisylate (Compazine Inj) 10 mg IVP Q6HR PRN PRN Reason: Nausea / Vomiting Saccharomyces Boulardii (Florastor) 500 mg PO BIDWM [facility] Last Admin: 12/22/18 08:09 Dose: 500 mg Senna (Senokot) 8.6 mg PO BID PRN PRN Reason: Constipation Sodium Bicarbonate (Sodium Bicarbonate) 650 mg PO BID [facility] Last Admin: 12/22/18 10:48 Dose: 650 mg Sodium Chloride (Normal Saline Flush 0.9%) 10 ml IVP PRN PRN PRN Reason: NEEDED PER PROVIDER ORDERS Last Admin: 12/22/18 11:39 Dose: 10 ml Sodium Chloride (Normal Saline Flush 0.9%) 10 ml IVP 0100,0900,1700 [facility] Last Admin: 12/22/18 15:22 Dose: 10 ml Sodium Chloride (Normal Saline Flush 0.9%) 20 ml IVP PRN PRN PRN Reason: After Blood Draw Last Admin: 12/22/18 15:29 Dose: 10 ml Tamsulosin HCl (Flomax) 0.4 mg PO DAILY [facility] Last Admin: 12/22/18 10:48 Dose: 0.4 mg RX: Lorazepam [Ativan] 1 mg PO Q8HR PRN 09/23/15 RX: Tamsulosin [Flomax] 0.4 mg PO DAILY 06/29/16 RX: Oxycodone HCl 10 - 20 mg PO Q4HR PRN MDD 8 tabs 07/26/17 RX: Lidocaine Ointment 5% [Xylocaine Ointment 5%] 1 appful TOP PRN PRN 08/20/17 RX: Potassium Chloride [K-Dur] 40 meq PO BID 08/30/17 RX: Gabapentin [Neurontin] 1,600 mg PO BID 09/27/17 Albuterol Sulf [Ventolin Hfa Inhaler] 2 puffs INH Q4HR PRN 05/09/18 RX: Melatonin 3 - 6 mg PO QPM PRN 05/09/18 RX: Vitamin B Complex/Folic Acid [Vitamin B-100 Complex Tablet] 1 tab PO DAILY 05/09/18 RX: Nystatin 5 ml PO QID 10/04/18 diphenhydrAMINE [Benadryl] 25 mg PO Q6HR PRN 10/04/18 Sennosides/Docusate Sodium [Docusate Sodium-Senna Tablet] 1 tab PO BID PRN 11/13/18 Chlorhexidine Gluconate [Peridex] 15 ml PO DAILY 12/18/18 Esomeprazole Magnesium [Nexium] 20 mg PO DAILY 12/18/18 Oxycodone HCl [Oxycontin] 20 mg PO TID 12/18/18 Polyethylene Glycol 3350 [Miralax] 17 gm PO DAILY PRN 12/18/18 RX: Magnesium 250 mg PO DAILY 12/18/18 RX: Torsemide 20 mg PO BID 12/19/18 Budesonide/Formoterol Fumarate [Symbicort 160-4.5 Mcg Inhaler] 2 puffs IH BID 12/20/18 hydrOXYzine PAMOATE [Vistaril] 25 mg PO TID PRN 12/20/18 Objective - Vital Signs/Intake & Output Vital Signs: Vital Signs x48h Temp Pulse Pulse Resp BP Pulse Ox 12/22/18 10:40 36.6 C 90 22 92 12/22/18 09:00 36.6 C 90 20 130/79 92 Intake & Output: Intake & Output 12/19/18 12/20/18 12/21/18 12/22/18 23:59 23:59 23:59 23:59 Intake Total 2227.5 3100 5231.667 868.333 Output Total 950 3925 1225 2750 Balance 1277.5 -825 4006.667 -1881.667 - Objective General Appearance: positive: No acute distress, Alert. negative: Lethargic Eyes Bilateral: positive: Normal inspection, PERRL, No lid inflammation, Conjunctivae nml ENT: positive: ENT inspection nml, Pharynx nml, No signs of dehydration. negative: Purulent nasal drainage, Pharyngeal erythema, Oral lesions Neck: positive: Nml inspection, Thyroid nml, No JVD, Trachea midline. negative: Thyromegaly, Lymphadenopathy (R), Lymphadenopathy (L), Stiff neck, Swelling/bruising, Tracheal deviation Respiratory: positive: Chest non-tender, No respiratory distress. negative: Wheezes, Rales, Rhonchi Cardiovascular: positive: Regular rate & rhythm, No murmur, No gallop. negative: Irregularly irregular, Extrasystoles, Tachycardia, Bradycardia, JVD present, Systolic murmur, Diastolic murmur Peripheral Pulses: 2+ Radial (R), 2+ Radial (L), 2+ Dorsalis pedis (R), 2+ Dorsalis pedis (L) Abdomen: positive: Non-tender, No organomegaly, Nml bowel sounds, No distention. negative: Tenderness, Guarding, Rebound Back: positive: Nml inspection. negative: CVA tenderness (R), CVA tenderness (L) Skin: positive: Warm, Dry. negative: Cyanosis, Diaphoresis, Pallor Extremities: positive: Non-tender. negative: Calf tenderness, Joint swelling, Abhijit's sign/cords Neurologic/Psychiatric: positive: Oriented x3, Sensation nml, Mood/affect nml. negative: Weakness, Sensory loss, Facial droop, Slurred/abnml speech, Depressed mood/affect - Lab Results Fish Bones: 12/22/18 06:25 12/22/18 06:30 Other Labs: Lab Results x24hrs 12/22/18 12/22/18 Range/Units 06:30 06:25 WBC 8.2 (4.8-10.8) x10^3/uL RBC 3.59 L (4.70-6.10) 10^6/uL Hgb 10.2 L (14.0-18.0) g/dL Hct 31.8 L (42.0-52.0) % MCV 88.6 (80.0-94.0) fL MCH 28.4 (27.0-31.0) pg MCHC 32.1 (32.0-36.0) g/dL RDW 18.3 H (12.0-15.0) % Plt Count 136 (130-450) 10^3/uL MPV 9.0 (7.4-11.4) fL Neut # (Auto) 5.4 (1.5-6.6) 10^3/uL Lymph # (Auto) 1.3 L (1.5-3.5) 10^3/uL [place] # (Auto) 1.0 (0.0-1.0) 10^3/uL Eos # (Auto) 0.4 (0.0-0.7) 10^3/uL Baso # (Auto) 0.1 (0.0-0.1) 10^3/uL Absolute Nucleated RBC 0.00 x10^3/uL Nucleated RBC % 0.0 /100WBC Sodium 137 (135-145) mmol/L Potassium 3.7 (3.5-5.0) mmol/L Chloride 104 (101-111) mmol/L Carbon Dioxide 23 (21-32) mmol/L Anion Gap 10.0 (6-13) BUN 7 (6-20) mg/dL Creatinine 0.8 (0.6-1.2) mg/dL Estimated GFR (MDRD) 100 (>89) Glucose 99 (70-100) mg/dL Calcium 8.1 L (8.5-10.3) mg/dL Total Bilirubin 1.5 H (0.2-1.0) mg/dL AST 14 (10-42) IU/L ALT < 10 L (10-60) IU/L Alkaline Phosphatase 49 (42-121) IU/L Total Protein 5.9 L (6.7-8.2) g/dL Albumin 2.8 L (3.2-5.5) g/dL Globulin 3.1 (2.1-4.2) g/dL Albumin/Globulin Ratio 0.9 L (1.0-2.2) ABX Reporting Has patient been on IV antibiotics over the past 48 hours?: Yes Sepsis Event Note (H) - Evaluation Current Stage of Sepsis: Ruled out Assessment/Plan - Problem List (1) Seizure Impression: 12/22 no seizure, stable,continue Keppra 12/21 pt has no seizure since pt was admitted continue Keppra, seizure precaution pt has hx of seizure since he had brain surgery. but pt has non compliance his medical treatment, report he did not take his seizure meds continue Keppra seizure precaution. 2. Acute cardiopulmonary arrest status post CPR hemodynamic stable now continue tele and vital monitor 3. Acute pulmonary contusion and associated rib fractures sec to CPR continue pain control, but precaution of pt's respiratory status incentive spirometer 4. Hypotensive event hold pt's BP meds now will reduce pt's pain meds to remain his BP level continue vital monitor 5. Acute respiratory distress with hypoxia 12/22 pt require 5 liter of O2, his O2 sat is 92%. pt has pneumonia with pulmonary edema, with hx of COPD and current tobacco smoker treat pneumonia with antibiotics, pulmcort and Duoneb PRN supplement of O2 as needed stable, continue RT and breath treatment supple O2 as needed 6. COPD w/o exacerabation continue Duoneb and pulmocord as needed 7. 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 PVD with ischemic ulcer to right lateral foot, recent left foot infection s/p IV daptomycin continue wound care and wound consult continue Dr. Fleming's ID recommendation to treat infection with Meropenem and Daptomycin 9. Chronic pain syndrome with opiate dependence/CBP pain control, precaution of hypotensive 10. Oropharyngeal Heather resolved 11. CAD stable, continue home continue tele and vital monitor 12. Medical noncompliance advise pt for medical compliance 13. Chronic tobacco use/dependence advise pt quit tobacco 14 weakness 12/22 continue PT/OT 12/21 consult with PT/OT, will followup 15, pneumonia 12/22 pt request O2 at 5 liter, O2 sat is 92% pt need more ambulate, can not only stay in the bed, discussed with pt, nurse, will discuss with PT/OT continue incentive Spirometer continue meropenem and Daptomycin continue RT treatment add Lasix, lab monitor CXR reveals pt has mild pulmonary edema with infiltrate continue meropenem and Daptomycin continue RT treatment add Lasix, lab monitor
[2018-12-22] MEDS: SODIUM CHLORIDE 0.9% IV SCH (16:50)
[2018-12-22] MEDS: DAPTOMYCIN IV SCH (16:50)
[2018-12-22] MEDS: MONTELUKAST 10 MG TABLET PO SCH (20:50)
[2018-12-22] MEDS: ATORVASTATIN 10 MG TABLET PO SCH (20:50)
[2018-12-22] MEDS: CHLORHEXIDINE GLUCONATE 15 ML UDC PO SCH (20:51)
[2018-12-22] MEDS: ENOXAPARIN 40 MG/0.4 ML SYRINGE SUBQ SCH (20:51)
[2018-12-22] MEDS: ONDANSETRON ODT 4 MG TABLET TL PRN (21:40)
[2018-12-23] MEDS: SODIUM CHLORIDE FLUSH 0.9% 10 ML SYRINGE IVP SCH ×3 (01:34→16:53)
[2018-12-23] MEDS: MORPHINE 2 MG/ML CARPUJECT IVP PRN ×2 (06:00→11:01)
[2018-12-23] MEDS: FUROSEMIDE 20 MG TABLET PO SCH ×2 (06:05→13:30)
[2018-12-23] MEDS: MEROPENEM 1 GM in SODIUM CHLORIDE 0.9% MINIBAG 100 ML IV SCH ×3 (06:06→22:18)
[2018-12-23 06:47] LABS: BASOPHILS # (AUTO) 0.1 10^3/uL (0.0-0.1); BASOPHILS % (AUTO) 0.7 %; EOSINOPHILS # (AUTO) 0.4 10^3/uL (0.0-0.7); EOSINOPHILS % (AUTO) 5.1 %; HGB - HEMOGLOBIN 10.5 g/dL (14.0-18.0); LYMPHOCYTES # (AUTO) 1.5 10^3/uL (1.5-3.5); MEAN CORPUSCULAR HEMOGLOBIN 28.4 pg (27.0-31.0); MEAN CORPUSCULAR HGB CONC 32.3 g/dL (32.0-36.0); MEAN CORPUSCULAR VOLUME 87.8 fL (80.0-94.0); MEAN PLATELET VOLUME 9.9 fL (7.4-11.4); MONOCYTES # (AUTO) 0.9 10^3/uL (0.0-1.0); MONOCYTES % (AUTO) 12.3 %; NEUTROPHILS # (AUTO) 4.6 10^3/uL (1.5-6.6); NEUTROPHILS % (AUTO) 61.5 %; PLT - PLATELET COUNT 156 10^3/uL (130-450); RED CELL DISTRIBUTION WIDTH 18.1 % (12.0-15.0); WHITE BLOOD COUNT 7.4 x10^3/uL (4.8-10.8)
[2018-12-23 07:07] LABS: ALBUMIN/GLOBULIN RATIO 0.9 (1.0-2.2); ALKALINE PHOSPHATASE 50 IU/L (42-121); ALT ALANINE AMINOTRANSFERASE < 10 IU/L (10-60); AST ASPARTATE AMINOTRANSFERASE 15 IU/L (10-42); BILIRUBIN,TOTAL 1.2 mg/dL (0.2-1.0); BUN - BLOOD UREA NITROGEN 9 mg/dL (6-20); CALCIUM 8.4 mg/dL (8.5-10.3); CARBON DIOXIDE - CO2 22 mmol/L (21-32); CHLORIDE 101 mmol/L (101-111); CREATININE 0.9 mg/dL (0.6-1.2); GFR - MDRD 87 (>89); GLUCOSE 100 mg/dL (70-100); MAGNESIUM 1.9 mg/dL (1.7-2.8); SODIUM 135 mmol/L (135-145); TOTAL PROTEIN 6.3 g/dL (6.7-8.2)
[2018-12-23] MEDS: SACCHAROMYCES BOULARDII 250 MG CAPSULE PO SCH ×2 (07:43→17:04)
[2018-12-23] MEDS: MAGNESIUM OXIDE 400 MG TABLET PO SCH (07:43)
[2018-12-23] MEDS: oxyCODONE 5 MG TABLET PO PRN ×3 (07:44→17:43)
[2018-12-23] MEDS: ALBUTEROL NEB 2.5 MG/3 ML INH PRN (07:56)
[2018-12-23] MEDS: BUDESONIDE 0.5 MG/2 ML NEB INH SCH ×2 (07:56→20:23)
[2018-12-23] MEDS: FORMOTEROL FUMARATE NEB 20 MCG/2 ML INH SCH ×2 (07:56→20:24)
[2018-12-23] MEDS: ASPIRIN CHEW 81 MG TABLET PO SCH (08:25)
[2018-12-23] MEDS: LACTOBACILLUS RHAMNOSUS GG CAPSULE PO SCH (08:26)
[2018-12-23] MEDS: guaiFENesin 600 MG TABLET PO SCH ×2 (08:26→22:07)
[2018-12-23] MEDS: GABAPENTIN 400 MG CAPSULE PO SCH ×2 (08:26→22:07)
[2018-12-23] MEDS: FAMOTIDINE 20 MG TABLET PO SCH ×2 (08:26→22:08)
[2018-12-23] MEDS: levETIRAcetam 250 MG TABLET PO SCH ×2 (08:26→22:07)
[2018-12-23] MEDS: POLYETHYLENE GLYCOL 3350 17 GM PACKET PO SCH (08:27)
[2018-12-23] MEDS: SODIUM BICARBONATE 650 MG TABLET PO SCH ×2 (08:27→22:07)
[2018-12-23] MEDS: TAMSULOSIN 0.4 MG CAPSULE PO SCH (08:27)
[2018-12-23] MEDS: NYSTATIN 500000 UNITS/5 ML UDC PO SCH ×4 (08:35→22:07)
[2018-12-23] MEDS: CARBOXYMETHYLCELLULOSE OPHTH DROPS EACHEYE PRN (13:31)
[2018-12-23] MEDS: SODIUM CHLORIDE 0.9% IV SCH (15:51)
[2018-12-23] MEDS: MIDODRINE 2.5 MG TABLET PO PRN (15:51)
[2018-12-23] MEDS: DAPTOMYCIN IV SCH (15:51)
[2018-12-23] MEDS: LIDOCAINE PATCH 5% TOP PRN (15:51)
[2018-12-23] MEDS ORDERED: SODIUM CHLORIDE 0.9% 500 ML IV ONE (18:08)
--- NOTE | 2018-12-23 18:13 | PROVIDER PROGRESS NOTE ---
Subjective - Prog Note Date Prog Note Date: 12/23/18 - Subjective Pt reports feeling: Improved Subjective: pt report he better but complain foot pain when he tried to move. He denies fever, chill, chest pain. No seizure is reported Current Medications - Current Medications Current Medications: Active Medications Acetaminophen (Tylenol) 650 mg PO Q4HR PRN PRN Reason: Pain 1 to 4 Last Admin: 12/21/18 00:29 Dose: 650 mg Albuterol () 2.5 mg INH RTQ4H PRN PRN Reason: Wheezing Last Admin: 12/23/18 07:56 Dose: 2.5 mg Albuterol/Ipratropium (Duoneb) 3 ml INH Q4HR PRN PRN Reason: Wheezing Last Admin: 12/24/18 13:45 Dose: 3 ml Aspirin ([facility] Bogdan Aspirin) 81 mg PO DAILY [facility] Last Admin: 12/24/18 08:38 Dose: Not Given Atorvastatin Calcium (Lipitor) 10 mg PO QPM [facility] Last Admin: 12/23/18 22:07 Dose: 10 mg Budesonide (Pulmicort) 0.5 mg INH RTBID [facility] Last Admin: 12/24/18 09:10 Dose: 0.5 mg Carboxymethylcellulose (Refresh 1% Ophth Drops) 1 drops EACHEYE PRN PRN PRN Reason: Dry Eye Last Admin: 12/24/18 13:23 Dose: 1 drops Chlorhexidine Gluconate (Peridex) 15 ml PO Q7D [facility] Last Admin: 12/22/18 20:51 Dose: 15 ml Diphenhydramine HCl (Benadryl) 25 mg PO Q6HR PRN PRN Reason: ITCHING Docusate Sodium (Colace 100mg Capsule) 100 mg PO BID PRN PRN Reason: Constipation Docusate Sodium (Colace 250mg Capsule) 250 - 500 mg PO DAILY [facility] Last Admin: 12/24/18 13:22 Dose: 250 mg Enoxaparin Sodium (Lovenox) 40 mg SUBQ HS [facility] Last Admin: 12/23/18 21:41 Dose: Not Given Famotidine (Pepcid) 20 mg PO BID [facility] Last Admin: 12/24/18 08:39 Dose: 20 mg Formoterol Fumarate (Perforomist) 20 mcg INH RTBID [facility] Last Admin: 12/24/18 09:10 Dose: 20 mcg Gabapentin (Neurontin) 1,600 mg PO BID [facility] Guaifenesin (Mucinex) 600 mg PO BID [facility] Last Admin: 12/24/18 08:39 Dose: 600 mg Heparin Sodium (Beef Lung) () 30 - 50 unit IVP PRN PRN PRN Reason: Port Protocol (<24 hours) Last Admin: 12/22/18 11:41 Dose: 50 unit Meropenem 1 gm/ Sodium (Chloride) 100 mls @ 200 mls/hr IV Q8HR [facility] Last Infusion: 12/24/18 14:12 Dose: Infused Daptomycin 708 mg/ Sodium (Chloride) 100 mls @ 200 mls/hr IV Q24H [facility] Last Infusion: 12/23/18 16:21 Dose: Infused Ketorolac Tromethamine (Toradol Inj (15mg)) 30 mg IVP Q6HR PRN PRN Reason: PAIN Stop: 12/28/18 21:37 Last Admin: 12/23/18 22:07 Dose: 30 mg Lactobacillus Rhamnosus (Culturelle) 1 cap PO DAILY [facility] Last Admin: 12/24/18 08:39 Dose: 1 cap Levetiracetam (Keppra) 500 mg PO BID [facility] Last Admin: 12/24/18 08:39 Dose: 500 mg Lidocaine (Lidoderm Patch) 2 patch TOP DAILY PRN PRN Reason: PAIN Last Admin: 12/23/18 15:51 Dose: 2 patch Lorazepam (Ativan) 1 mg PO Q6H PRN PRN Reason: Anxiety Last Admin: 12/23/18 22:07 Dose: 1 mg Magnesium Oxide (Mag Ox) 400 mg PO DAILYWM [facility] Last Admin: 12/24/18 07:47 Dose: 400 mg Midodrine () 10 mg PO TID PRN PRN Reason: SBP<100 Last Admin: 12/24/18 00:51 Dose: 10 mg Montelukast Sodium (Singulair) 10 mg PO QPM [facility] Last Admin: 12/23/18 22:07 Dose: 10 mg Morphine Sulfate (Morphine (Carpuject)) 2 mg IVP Q2HR PRN PRN Reason: Pain 8 to 10 Last Admin: 12/24/18 12:14 Dose: 2 mg Naloxone HCl (Narcan) 2 mg IVP PRN PRN PRN Reason: opiod od Nystatin (Mycostatin) 5 ml PO QID [facility] Last Admin: 12/24/18 12:14 Dose: 5 ml Ondansetron HCl (Zofran Odt) 4 mg TL Q6HR PRN PRN Reason: Nausea / Vomiting Last Admin: 12/22/18 21:40 Dose: 4 mg Oxycodone HCl (Roxicodone) 5 mg PO Q4HR PRN PRN Reason: PAIN Last Admin: 12/24/18 14:59 Dose: 5 mg Melatonin 3 Mg 1 each PO QPM PRN PRN Reason: Insomnia Polyethylene Glycol (Miralax) 17 gm PO DAILY [facility] Last Admin: 12/24/18 08:40 Dose: 17 gm Polyethylene Glycol (Miralax) 17 gm PO DAILY PRN PRN Reason: Constipation Prochlorperazine Edisylate (Compazine Inj) 10 mg IVP Q6HR PRN PRN Reason: Nausea / Vomiting Saccharomyces Boulardii (Florastor) 500 mg PO BIDWM [facility] Last Admin: 12/24/18 07:47 Dose: 500 mg Senna (Senokot) 8.6 mg PO BID PRN PRN Reason: Constipation Senna (Senokot) 8.6 - 17.2 mg PO DAILY [facility] Last Admin: 12/24/18 12:13 Dose: 17.2 mg Sodium Bicarbonate (Sodium Bicarbonate) 650 mg PO BID [facility] Last Admin: 12/24/18 08:40 Dose: 650 mg Sodium Chloride (Normal Saline Flush 0.9%) 10 ml IVP PRN PRN PRN Reason: NEEDED PER PROVIDER ORDERS Last Admin: 12/22/18 11:39 Dose: 10 ml Sodium Chloride (Normal Saline Flush 0.9%) 10 ml IVP 0100,0900,1700 [facility] Last Admin: 12/24/18 08:41 Dose: Not Given Sodium Chloride (Normal Saline Flush 0.9%) 20 ml IVP PRN PRN PRN Reason: After Blood Draw Last Admin: 12/22/18 15:29 Dose: 10 ml Tamsulosin HCl (Flomax) 0.4 mg PO DAILY [facility] Last Admin: 12/24/18 08:41 Dose: 0.4 mg Lorazepam [Ativan] 1 mg PO Q8HR PRN 09/23/15 Tamsulosin [Flomax] 0.4 mg PO DAILY 06/29/16 Oxycodone HCl 10 - 20 mg PO Q4HR PRN MDD 8 tabs 07/26/17 Lidocaine Ointment 5% [Xylocaine Ointment 5%] 1 appful TOP PRN PRN 08/20/17 Potassium Chloride [K-Dur] 40 meq PO BID 08/30/17 Gabapentin [Neurontin] 1,600 mg PO BID 09/27/17 Albuterol Sulf [Ventolin Hfa Inhaler] 2 puffs INH Q4HR PRN 05/09/18 Melatonin 3 - 6 mg PO QPM PRN 05/09/18 Vitamin B Complex/Folic Acid [Vitamin B-100 Complex Tablet] 1 tab PO DAILY 05/09/18 Nystatin 5 ml PO QID 10/04/18 diphenhydrAMINE [Benadryl] 25 mg PO Q6HR PRN 10/04/18 Sennosides/Docusate Sodium [Docusate Sodium-Senna Tablet] 1 tab PO BID PRN 11/13/18 Chlorhexidine Gluconate [Peridex] 15 ml PO DAILY 12/18/18 Esomeprazole Magnesium [Nexium] 20 mg PO DAILY 12/18/18 Magnesium 250 mg PO DAILY 12/18/18 Oxycodone HCl [Oxycontin] 20 mg PO TID 12/18/18 Polyethylene Glycol 3350 [Miralax] 17 gm PO DAILY PRN 12/18/18 Torsemide 20 mg PO BID 12/19/18 Budesonide/Formoterol Fumarate [Symbicort 160-4.5 Mcg Inhaler] 2 puffs IH BID 12/20/18 hydrOXYzine PAMOATE [Vistaril] 25 mg PO TID PRN 12/20/18 Objective - Vital Signs/Intake & Output Reviewed Vital Signs: Yes Vital Signs: Vital Signs x48h Temp Pulse Pulse Pulse Resp BP BP 12/23/18 17:04 88 107/67 12/23/18 16:00 36.3 C L 100 18 87/59 L 12/23/18 13:06 133 H 105 H BP BP Pulse Ox Pulse Ox 12/23/18 17:04 12/23/18 16:00 96 12/23/18 13:06 114/78 111/66 77 L Intake & Output: Intake & Output 12/20/18 12/21/18 12/22/18 07/01/19 23:59 23:59 23:59 23:59 Intake Total 3100 5231.667 8703.920 0763 Output Total 4169 1229 0160 3050 Balance -825 4006.667 -2151.667 -660 - Objective General Appearance: positive: No acute distress, Alert. negative: Lethargic Eyes Bilateral: positive: Normal inspection, PERRL, No lid inflammation, Conjunctivae nml ENT: positive: ENT inspection nml, Pharynx nml, No signs of dehydration. negative: Purulent nasal drainage, Pharyngeal erythema, Oral lesions Neck: positive: Nml inspection, Thyroid nml, No JVD, Trachea midline. negative: Thyromegaly, Lymphadenopathy (R), Lymphadenopathy (L), Stiff neck, Swelling/ bruising, Tracheal deviation Respiratory: positive: Chest non-tender, No respiratory distress. negative: Wheezes, Rales, Rhonchi Cardiovascular: positive: Regular rate & rhythm, No murmur, No gallop. negative: Irregularly irregular, Extrasystoles, Tachycardia, Bradycardia, JVD present, Systolic murmur, Diastolic murmur Peripheral Pulses: 2+ Radial (R), 2+ Radial (L), 2+ Dorsalis pedis (R), 2+ Dorsalis pedis (L) Abdomen: positive: Non-tender, No organomegaly, Nml bowel sounds. negative: No distention, Tenderness, Guarding, Rebound - Lab Results Fish Bones: 12/24/18 04:35 12/24/18 04:35 Other Labs: Lab Results x24hrs 12/23/18 12/23/18 Range/Units 05:49 05:49 WBC 7.4 (4.8-10.8) x10^3/uL RBC 3.70 L (4.70-6.10) 10^6/uL Hgb 10.5 L (14.0-18.0) g/dL Hct 32.5 L (42.0-52.0) % MCV 87.8 (80.0-94.0) fL MCH 28.4 (27.0-31.0) pg MCHC 32.3 (32.0-36.0) g/dL RDW 18.1 H (12.0-15.0) % Plt Count 156 (130-450) 10^3/uL MPV 9.9 (7.4-11.4) fL Neut # (Auto) 4.6 (1.5-6.6) 10^3/uL Lymph # (Auto) 1.5 (1.5-3.5) 10^3/uL [place] # (Auto) 0.9 (0.0-1.0) 10^3/uL Eos # (Auto) 0.4 (0.0-0.7) 10^3/uL Baso # (Auto) 0.1 (0.0-0.1) 10^3/uL Absolute Nucleated RBC 0.00 x10^3/uL Nucleated RBC % 0.0 /100WBC Sodium 135 (135-145) mmol/L Potassium 3.7 (3.5-5.0) mmol/L Chloride 101 (101-111) mmol/L Carbon Dioxide 22 (21-32) mmol/L Anion Gap 12.0 (6-13) BUN 9 (6-20) mg/dL Creatinine 0.9 (0.6-1.2) mg/dL Estimated GFR (MDRD) 87 L (>89) Glucose 100 (70-100) mg/dL Calcium 8.4 L (8.5-10.3) mg/dL Magnesium 1.9 (1.7-2.8) mg/dL Total Bilirubin 1.2 H (0.2-1.0) mg/dL AST 15 (10-42) IU/L ALT < 10 L (10-60) IU/L Alkaline Phosphatase 50 (42-121) IU/L Total Protein 6.3 L (6.7-8.2) g/dL Albumin 3.0 L (3.2-5.5) g/dL Globulin 3.3 (2.1-4.2) g/dL Albumin/Globulin Ratio 0.9 L (1.0-2.2) Sepsis Event Note (H) - Evaluation Current Stage of Sepsis: Ruled out Assessment/Plan - Problem List (1) Seizure Impression: 12/23 no seizure, stable, continue Keppra pt is ready for d/c 12/22 no seizure, stable,continue Keppra 12/21 pt has no seizure since pt was admitted continue Keppra, seizure precaution pt has hx of seizure since he had brain surgery. but pt has non compliance his medical treatment, report he did not take his seizure meds continue Keppra seizure precaution. 2. Acute cardiopulmonary arrest status post CPR hemodynamic stable now continue tele and vital monitor 3. Acute pulmonary contusion and associated rib fractures sec to CPR 12/23 continue pain, precaution of hypotension continue incentive spirometer continue pain control, but precaution of pt's respiratory status incentive spirometer 4. Hypotensive event 12/23 stable, vital monitor hold pt's BP meds now will reduce pt's pain meds to remain his BP level continue vital monitor 5. Acute respiratory distress with hypoxia 12/23 stable, encourage ambulation safely treat pneumonia with antibiotics, pulmcort and Duoneb PRN supplement of O2 as needed 12/22 pt require 5 liter of O2, his O2 sat is 92%. pt has pneumonia with pulmonary edema, with hx of COPD and current tobacco smoker treat pneumonia with antibiotics, pulmcort and Duoneb PRN supplement of O2 as needed stable, continue RT and breath treatment supple O2 as needed 6. COPD w/o exacerabation continue Duoneb and pulmocord as needed 7. 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 PVD with ischemic ulcer to right lateral foot, recent left foot infection s/p IV daptomycin 12/23 continue antibiotics continue vac and wound care continue wound care and wound consult continue Dr. Fleming's ID recommendation to treat infection with Meropenem and Daptomycin 9. Chronic pain syndrome with opiate dependence/CBP pain control, precaution of hypotensive 10. Oropharyngeal Heather resolved 11. CAD stable, continue home continue tele and vital monitor 12. Medical noncompliance advise pt for medical compliance 13. Chronic tobacco use/dependence advise pt quit tobacco 14 weakness 12/22 continue PT/OT 12/21 consult with PT/OT, will followup 15, pneumonia 12/23 continue antibiotics encourage ambulation continue incentive spirometer 12/22 pt request O2 at 5 liter, O2 sat is 92% pt need more ambulate, can not only stay in the bed, discussed with pt, nurse, will discuss with PT/OT continue incentive Spirometer continue meropenem and Daptomycin continue RT treatment add Lasix, lab monitor CXR reveals pt has mild pulmonary edema with infiltrate continue meropenem and Daptomycin continue RT treatment add Lasix, lab monitor
[2018-12-23] MEDS: IPRATROPIUM/ALBUTEROL 3 ML NEB INH PRN (20:24)
[2018-12-23] MEDS: ENOXAPARIN 40 MG/0.4 ML SYRINGE SUBQ SCH (21:41)
[2018-12-23] MEDS: ATORVASTATIN 10 MG TABLET PO SCH (22:07)
[2018-12-23] MEDS: LORazepam 1 MG TABLET PO PRN (22:07)
[2018-12-23] MEDS: MONTELUKAST 10 MG TABLET PO SCH (22:07)
[2018-12-23] MEDS: KETOROLAC 15 MG/ML VIAL IVP PRN (22:07)
[2018-12-24] MEDS: MIDODRINE 2.5 MG TABLET PO PRN (00:51)
[2018-12-24] MEDS: SODIUM CHLORIDE FLUSH 0.9% 10 ML SYRINGE IVP SCH ×3 (02:14→16:39)
[2018-12-24 05:08] LABS: BASOPHILS # (AUTO) 0.1 10^3/uL (0.0-0.1); BASOPHILS % (AUTO) 0.8 %; EOSINOPHILS # (AUTO) 0.4 10^3/uL (0.0-0.7); EOSINOPHILS % (AUTO) 5.7 %; HGB - HEMOGLOBIN 10.5 g/dL (14.0-18.0); LYMPHOCYTES # (AUTO) 1.3 10^3/uL (1.5-3.5); LYMPHOCYTES % (AUTO) 20.8 %; MEAN CORPUSCULAR HEMOGLOBIN 28.6 pg (27.0-31.0); MEAN CORPUSCULAR HGB CONC 32.4 g/dL (32.0-36.0); MEAN CORPUSCULAR VOLUME 88.3 fL (80.0-94.0); MEAN PLATELET VOLUME 9.4 fL (7.4-11.4); MONOCYTES # (AUTO) 0.8 10^3/uL (0.0-1.0); NEUTROPHILS # (AUTO) 3.8 10^3/uL (1.5-6.6); NEUTROPHILS % (AUTO) 60.2 %; PLT - PLATELET COUNT 175 10^3/uL (130-450); RED BLOOD COUNT 3.67 10^6/uL (4.70-6.10); RED CELL DISTRIBUTION WIDTH 17.9 % (12.0-15.0); WHITE BLOOD COUNT 6.3 x10^3/uL (4.8-10.8)
[2018-12-24 05:23] LABS: ALBUMIN 2.9 g/dL (3.2-5.5); ALBUMIN/GLOBULIN RATIO 0.9 (1.0-2.2); BILIRUBIN,TOTAL 0.7 mg/dL (0.2-1.0); CALCIUM 8.5 mg/dL (8.5-10.3); CREATININE 1.1 mg/dL (0.6-1.2); TOTAL PROTEIN 6.1 g/dL (6.7-8.2)
[2018-12-24] MEDS: GABAPENTIN 400 MG CAPSULE PO SCH ×2 (05:23→21:13)
[2018-12-24] MEDS: MEROPENEM 1 GM in SODIUM CHLORIDE 0.9% MINIBAG 100 ML IV SCH ×3 (05:27→22:07)
[2018-12-24] MEDS: MORPHINE 2 MG/ML CARPUJECT IVP PRN ×4 (07:17→21:04)
[2018-12-24] MEDS: MAGNESIUM OXIDE 400 MG TABLET PO SCH (07:47)
[2018-12-24] MEDS: SACCHAROMYCES BOULARDII 250 MG CAPSULE PO SCH ×2 (07:47→16:39)
[2018-12-24] MEDS: ASPIRIN CHEW 81 MG TABLET PO SCH (08:38)
[2018-12-24] MEDS: FAMOTIDINE 20 MG TABLET PO SCH ×2 (08:39→21:13)
[2018-12-24] MEDS: guaiFENesin 600 MG TABLET PO SCH ×2 (08:39→21:13)
[2018-12-24] MEDS: LACTOBACILLUS RHAMNOSUS GG CAPSULE PO SCH (08:39)
[2018-12-24] MEDS: levETIRAcetam 250 MG TABLET PO SCH ×2 (08:39→21:13)
[2018-12-24] MEDS: POLYETHYLENE GLYCOL 3350 17 GM PACKET PO SCH (08:40)
[2018-12-24] MEDS: NYSTATIN 500000 UNITS/5 ML UDC PO SCH ×4 (08:40→21:13)
[2018-12-24] MEDS: SODIUM BICARBONATE 650 MG TABLET PO SCH ×2 (08:40→21:15)
[2018-12-24] MEDS: TAMSULOSIN 0.4 MG CAPSULE PO SCH (08:41)
[2018-12-24] MEDS: FORMOTEROL FUMARATE NEB 20 MCG/2 ML INH SCH ×2 (09:10→20:20)
[2018-12-24] MEDS: BUDESONIDE 0.5 MG/2 ML NEB INH SCH ×2 (09:10→20:20)
[2018-12-24] MEDS: IPRATROPIUM/ALBUTEROL 3 ML NEB INH PRN ×2 (09:10→13:45)
[2018-12-24] MEDS ORDERED: GABAPENTIN 400 MG CAPSULE PO ONE (12:00)
[2018-12-24] MEDS: SENNA 8.6 MG TABLET PO SCH (12:13)
[2018-12-24] MEDS: DOCUSATE SODIUM 250 MG CAPSULE PO SCH (13:22)
[2018-12-24] MEDS: CARBOXYMETHYLCELLULOSE OPHTH DROPS EACHEYE PRN ×2 (13:23→23:56)
[2018-12-24] MEDS: oxyCODONE 5 MG TABLET PO PRN ×2 (14:59→22:07)
[2018-12-24] MEDS: DAPTOMYCIN IV SCH (16:39)
[2018-12-24] MEDS: SODIUM CHLORIDE 0.9% IV SCH (16:39)
--- NOTE | 2018-12-24 18:30 | PROVIDER PROGRESS NOTE ---
Subjective - Prog Note Date Prog Note Date: 12/24/18 - Subjective Pt reports feeling: Improved Subjective: pt request his home dosage of Gabapentin to his current medical management, otherwise he has no complaint Current Medications - Current Medications Current Medications: Active Medications Acetaminophen (Tylenol) 650 mg PO Q4HR PRN PRN Reason: Pain 1 to 4 Last Admin: 12/21/18 00:29 Dose: 650 mg Albuterol () 2.5 mg INH RTQ4H PRN PRN Reason: Wheezing Last Admin: 12/23/18 07:56 Dose: 2.5 mg Albuterol/Ipratropium (Duoneb) 3 ml INH Q4HR PRN PRN Reason: Wheezing Last Admin: 12/25/18 07:30 Dose: 3 ml Aspirin ([place]dan Aspirin) 81 mg PO DAILY ON LICENSE OF [facility] Last Admin: 12/25/18 08:28 Dose: Not Given Atorvastatin Calcium (Lipitor) 10 mg PO QPM ON LICENSE OF [facility] Last Admin: 12/24/18 21:13 Dose: 10 mg Budesonide (Pulmicort) 0.5 mg INH RTBID ON LICENSE OF [facility] Last Admin: 12/25/18 07:30 Dose: 0.5 mg Carboxymethylcellulose (Refresh 1% Ophth Drops) 1 drops EACHEYE PRN PRN PRN Reason: Dry Eye Last Admin: 12/24/18 23:56 Dose: 1 drops Chlorhexidine Gluconate (Peridex) 15 ml PO Q7D ON LICENSE OF [facility] Last Admin: 12/22/18 20:51 Dose: 15 ml Diphenhydramine HCl (Benadryl) 25 mg PO Q6HR PRN PRN Reason: ITCHING Docusate Sodium (Colace 100mg Capsule) 100 mg PO BID PRN PRN Reason: Constipation Docusate Sodium (Colace 250mg Capsule) 250 - 500 mg PO DAILY ON LICENSE OF [facility] Last Admin: 12/25/18 08:30 Dose: 250 mg Enoxaparin Sodium (Lovenox) 40 mg SUBQ HS ON LICENSE OF [facility] Last Admin: 12/24/18 21:15 Dose: Not Given Famotidine (Pepcid) 20 mg PO BID ON LICENSE OF [facility] Last Admin: 12/25/18 08:30 Dose: 20 mg Formoterol Fumarate (Perforomist) 20 mcg INH RTBID ON LICENSE OF [facility] Last Admin: 12/25/18 07:30 Dose: 20 mcg Gabapentin (Neurontin) 1,600 mg PO BID ON LICENSE OF [facility] Last Admin: 12/25/18 08:31 Dose: 1,600 mg Guaifenesin (Mucinex) 600 mg PO BID ON LICENSE OF [facility] Last Admin: 12/25/18 08:31 Dose: 600 mg Heparin Sodium (Beef Lung) () 30 - 50 unit IVP PRN PRN PRN Reason: Port Protocol (<24 hours) Last Admin: 12/22/18 11:41 Dose: 50 unit Meropenem 1 gm/ Sodium (Chloride) 100 mls @ 200 mls/hr IV Q8HR ON LICENSE OF [facility] Last Infusion: 12/25/18 14:51 Dose: Infused Daptomycin 708 mg/ Sodium (Chloride) 100 mls @ 200 mls/hr IV Q24H ON LICENSE OF [facility] Last Infusion: 12/24/18 17:10 Dose: Infused Ketorolac Tromethamine (Toradol Inj (15mg)) 30 mg IVP Q6HR PRN PRN Reason: PAIN Stop: 12/28/18 21:37 Last Admin: 12/25/18 10:08 Dose: 30 mg Lactobacillus Rhamnosus (Culturelle) 1 cap PO DAILY ON LICENSE OF [facility] Last Admin: 12/25/18 08:31 Dose: 1 cap Levetiracetam (Keppra) 500 mg PO BID ON LICENSE OF [facility] Last Admin: 12/25/18 08:31 Dose: 500 mg Lidocaine (Lidoderm Patch) 2 patch TOP DAILY PRN PRN Reason: PAIN Last Admin: 12/24/18 19:16 Dose: 2 patch Lorazepam (Ativan) 1 mg PO Q6H PRN PRN Reason: Anxiety Last Admin: 12/23/18 22:07 Dose: 1 mg Magnesium Oxide (Mag Ox) 400 mg PO DAILYWM ON LICENSE OF [facility] Last Admin: 12/25/18 08:08 Dose: 400 mg Midodrine () 10 mg PO TID PRN PRN Reason: SBP<100 Last Admin: 12/24/18 00:51 Dose: 10 mg Montelukast Sodium (Singulair) 10 mg PO QPM ON LICENSE OF [facility] Last Admin: 12/24/18 21:13 Dose: 10 mg Morphine Sulfate (Morphine (Carpuject)) 2 mg IVP Q2HR PRN PRN Reason: Pain 8 to 10 Last Admin: 12/25/18 14:47 Dose: 2 mg Naloxone HCl (Narcan) 2 mg IVP PRN PRN PRN Reason: opiod od Nystatin (Mycostatin) 5 ml PO QID ON LICENSE OF [facility] Last Admin: 12/25/18 14:06 Dose: 5 ml Ondansetron HCl (Zofran Odt) 4 mg TL Q6HR PRN PRN Reason: Nausea / Vomiting Last Admin: 12/22/18 21:40 Dose: 4 mg Oxycodone HCl (Roxicodone) 5 mg PO Q4HR PRN PRN Reason: PAIN Last Admin: 12/24/18 22:07 Dose: 5 mg Melatonin 3 Mg 1 each PO QPM PRN PRN Reason: Insomnia Polyethylene Glycol (Miralax) 17 gm PO DAILY ON LICENSE OF [facility] Last Admin: 12/25/18 08:32 Dose: 17 gm Polyethylene Glycol (Miralax) 17 gm PO DAILY PRN PRN Reason: Constipation Prochlorperazine Edisylate (Compazine Inj) 10 mg IVP Q6HR PRN PRN Reason: Nausea / Vomiting Saccharomyces Boulardii (Florastor) 500 mg PO BIDWM ON LICENSE OF [facility] Last Admin: 12/25/18 08:08 Dose: 500 mg Senna (Senokot) 8.6 mg PO BID PRN PRN Reason: Constipation Senna (Senokot) 8.6 - 17.2 mg PO DAILY ON LICENSE OF [facility] Last Admin: 12/25/18 08:32 Dose: 8.6 mg Sodium Bicarbonate (Sodium Bicarbonate) 650 mg PO BID ON LICENSE OF [facility] Last Admin: 12/25/18 08:32 Dose: 650 mg Sodium Chloride (Normal Saline Flush 0.9%) 10 ml IVP PRN PRN PRN Reason: NEEDED PER PROVIDER ORDERS Last Admin: 12/25/18 02:30 Dose: 10 ml Sodium Chloride (Normal Saline Flush 0.9%) 10 ml IVP 0100,0900,1700 ON LICENSE OF [facility] Last Admin: 12/25/18 08:32 Dose: Not Given Sodium Chloride (Normal Saline Flush 0.9%) 20 ml IVP PRN PRN PRN Reason: After Blood Draw Last Admin: 12/22/18 15:29 Dose: 10 ml Tamsulosin HCl (Flomax) 0.4 mg PO DAILY ON LICENSE OF [facility] Last Admin: 12/25/18 08:32 Dose: 0.4 mg Lorazepam [Ativan] 1 mg PO Q8HR PRN 09/23/15 Tamsulosin [Flomax] 0.4 mg PO DAILY 06/29/16 Oxycodone HCl 10 - 20 mg PO Q4HR PRN MDD 8 tabs 07/26/17 Lidocaine Ointment 5% [Xylocaine Ointment 5%] 1 appful TOP PRN PRN 08/20/17 Potassium Chloride [K-Dur] 40 meq PO BID 08/30/17 Gabapentin [Neurontin] 1,600 mg PO BID 09/27/17 Albuterol Sulf [Ventolin Hfa Inhaler] 2 puffs INH Q4HR PRN 05/09/18 Melatonin 3 - 6 mg PO QPM PRN 05/09/18 Vitamin B Complex/Folic Acid [Vitamin B-100 Complex Tablet] 1 tab PO DAILY 05/09/18 Nystatin 5 ml PO QID 10/04/18 diphenhydrAMINE [Benadryl] 25 mg PO Q6HR PRN 10/04/18 Sennosides/Docusate Sodium [Docusate Sodium-Senna Tablet] 1 tab PO BID PRN 11/13/18 Chlorhexidine Gluconate [Peridex] 15 ml PO DAILY 12/18/18 Esomeprazole Magnesium [Nexium] 20 mg PO DAILY 12/18/18 Magnesium 250 mg PO DAILY 12/18/18 Oxycodone HCl [Oxycontin] 20 mg PO TID 12/18/18 Polyethylene Glycol 3350 [Miralax] 17 gm PO DAILY PRN 12/18/18 Torsemide 20 mg PO BID 12/19/18 Budesonide/Formoterol Fumarate [Symbicort 160-4.5 Mcg Inhaler] 2 puffs IH BID 12/20/18 hydrOXYzine PAMOATE [Vistaril] 25 mg PO TID PRN 12/20/18 Objective - Vital Signs/Intake & Output Reviewed Vital Signs: Yes Vital Signs: Vital Signs x48h Temp Pulse Pulse Resp BP BP Pulse Ox 12/24/18 15:29 36.5 C 89 20 119/74 96 12/24/18 14:59 111/70 12/24/18 13:45 77 18 Intake & Output: Intake & Output 12/21/18 12/22/18 12/23/18 12/24/18 23:59 23:59 23:59 23:59 Intake Total 5231.667 3716.272 7123 1646 Output Total 7790 6995 0595 Balance 4006.667 -2151.667 -310 1646 - Objective General Appearance: positive: No acute distress, Alert. negative: Lethargic Eyes Bilateral: positive: Normal inspection, PERRL, No lid inflammation, Conjunctivae nml ENT: positive: ENT inspection nml, Pharynx nml, No signs of dehydration. negative: Purulent nasal drainage, Pharyngeal erythema, Oral lesions Neck: positive: Nml inspection, Thyroid nml, No JVD, Trachea midline. negative: Thyromegaly, Lymphadenopathy (R), Lymphadenopathy (L), Stiff neck, Swelling/bruising, Tracheal deviation Respiratory: positive: Chest non-tender, No respiratory distress. negative: Wheezes, Rales, Rhonchi Cardiovascular: positive: Regular rate & rhythm, No murmur, No gallop. negative: Irregularly irregular, Extrasystoles, Tachycardia, Bradycardia, JVD present, Systolic murmur, Diastolic murmur Peripheral Pulses: 2+ Radial (R), 2+ Radial (L), 2+ Dorsalis pedis (R), 2+ Dorsalis pedis (L) Abdomen: positive: Non-tender, No organomegaly, Nml bowel sounds, No distention. negative: Tenderness, Guarding, Rebound Back: positive: Nml inspection. negative: CVA tenderness (R), CVA tenderness (L) Skin: positive: No rash, Warm, Dry. negative: Cyanosis, Diaphoresis, Pallor Extremities: positive: Non-tender. negative: Calf tenderness, Joint swelling, Abhijit's sign/cords Neurologic/Psychiatric: positive: Oriented x3, Sensation nml, Mood/affect nml. negative: Weakness, Sensory loss, Facial droop, Slurred/abnml speech, Depressed mood/affect - Lab Results Fish Bones: 12/25/18 05:20 12/25/18 05:20 Other Labs: Lab Results x24hrs 12/24/18 12/24/18 Range/Units 04:35 04:35 WBC 6.3 (4.8-10.8) x10^3/uL RBC 3.67 L (4.70-6.10) 10^6/uL Hgb 10.5 L (14.0-18.0) g/dL Hct 32.4 L (42.0-52.0) % MCV 88.3 (80.0-94.0) fL MCH 28.6 (27.0-31.0) pg MCHC 32.4 (32.0-36.0) g/dL RDW 17.9 H (12.0-15.0) % Plt Count 175 (130-450) 10^3/uL MPV 9.4 (7.4-11.4) fL Neut # (Auto) 3.8 (1.5-6.6) 10^3/uL Lymph # (Auto) 1.3 L (1.5-3.5) 10^3/uL [place] # (Auto) 0.8 (0.0-1.0) 10^3/uL Eos # (Auto) 0.4 (0.0-0.7) 10^3/uL Baso # (Auto) 0.1 (0.0-0.1) 10^3/uL Absolute Nucleated RBC 0.00 x10^3/uL Nucleated RBC % 0.0 /100WBC Sodium 138 (135-145) mmol/L Potassium 3.7 (3.5-5.0) mmol/L Chloride 102 (101-111) mmol/L Carbon Dioxide 25 (21-32) mmol/L Anion Gap 11.0 (6-13) BUN 13 (6-20) mg/dL Creatinine 1.1 (0.6-1.2) mg/dL Estimated GFR (MDRD) 69 L (>89) Glucose 112 H (70-100) mg/dL Calcium 8.5 (8.5-10.3) mg/dL Total Bilirubin 0.7 (0.2-1.0) mg/dL AST 17 (10-42) IU/L ALT 10 (10-60) IU/L Alkaline Phosphatase 52 (42-121) IU/L Total Protein 6.1 L (6.7-8.2) g/dL Albumin 2.9 L (3.2-5.5) g/dL Globulin 3.2 (2.1-4.2) g/dL Albumin/Globulin Ratio 0.9 L (1.0-2.2) ABX Reporting Has patient been on IV antibiotics over the past 48 hours?: Yes Sepsis Event Note (H) - Evaluation Current Stage of Sepsis: Ruled out Assessment/Plan - Problem List (1) Seizure Impression: 12/24 no seizure, pt is medical ready to be d/c 12/23 no seizure, stable, continue Keppra pt is ready for d/c 12/22 no seizure, stable,continue Keppra 12/21 pt has no seizure since pt was admitted continue Keppra, seizure precaution pt has hx of seizure since he had brain surgery. but pt has non compliance his medical treatment, report he did not take his seizure meds continue Keppra seizure precaution. 2. Acute cardiopulmonary arrest status post CPR hemodynamic stable now continue tele and vital monitor 3. Acute pulmonary contusion and associated rib fractures sec to CPR 12/23 continue pain, precaution of hypotension continue incentive spirometer continue pain control, but precaution of pt's respiratory status incentive spirometer 4. Hypotensive event 12/23 stable, vital monitor hold pt's BP meds now will reduce pt's pain meds to remain his BP level continue vital monitor 5. Acute respiratory distress with hypoxia 12/23 stable, encourage ambulation safely treat pneumonia with antibiotics, pulmcort and Duoneb PRN supplement of O2 as needed 12/22 pt require 5 liter of O2, his O2 sat is 92%. pt has pneumonia with pulmonary edema, with hx of COPD and current tobacco smoker treat pneumonia with antibiotics, pulmcort and Duoneb PRN supplement of O2 as needed stable, continue RT and breath treatment supple O2 as needed 6. COPD w/o exacerabation continue Duoneb and pulmocord as needed 7. 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 PVD with ischemic ulcer to right lateral foot, recent left foot infection s/p IV daptomycin 12/23 continue antibiotics continue vac and wound care continue wound care and wound consult continue Dr. Fleming's ID recommendation to treat infection with Meropenem and Daptomycin 9. Chronic pain syndrome with opiate dependence/CBP pain control, precaution of hypotensive 10. Oropharyngeal Heather resolved 11. CAD stable, continue home continue tele and vital monitor 12. Medical noncompliance advise pt for medical compliance 13. Chronic tobacco use/dependence advise pt quit tobacco 14 weakness 12/22 continue PT/OT 12/21 consult with PT/OT, will followup 15, pneumonia 12/23 continue antibiotics encourage ambulation continue incentive spirometer 12/22 pt request O2 at 5 liter, O2 sat is 92% pt need more ambulate, can not only stay in the bed, discussed with pt, nurse, will discuss with PT/OT continue incentive Spirometer continue meropenem and Daptomycin continue RT treatment add Lasix, lab monitor CXR reveals pt has mild pulmonary edema with infiltrate continue meropenem and Daptomycin continue RT treatment add Lasix, lab monitor
[2018-12-24] MEDS: LIDOCAINE PATCH 5% TOP PRN (19:16)
[2018-12-24] MEDS: MONTELUKAST 10 MG TABLET PO SCH (21:13)
[2018-12-24] MEDS: ATORVASTATIN 10 MG TABLET PO SCH (21:13)
[2018-12-24] MEDS: ENOXAPARIN 40 MG/0.4 ML SYRINGE SUBQ SCH (21:15)
[2018-12-25] MEDS: MORPHINE 2 MG/ML CARPUJECT IVP PRN ×9 (00:29→21:22)
[2018-12-25] MEDS: SODIUM CHLORIDE FLUSH 0.9% 10 ML SYRINGE IVP SCH ×3 (02:12→16:02)
[2018-12-25] MEDS: SODIUM CHLORIDE FLUSH 0.9% 10 ML SYRINGE IVP PRN (02:30)
[2018-12-25 05:36] LABS: BASOPHILS % (AUTO) 0.6 %; EOSINOPHILS # (AUTO) 0.4 10^3/uL (0.0-0.7); EOSINOPHILS % (AUTO) 5.6 %; HGB - HEMOGLOBIN 10.1 g/dL (14.0-18.0); LYMPHOCYTES # (AUTO) 1.6 10^3/uL (1.5-3.5); LYMPHOCYTES % (AUTO) 23.6 %; MEAN CORPUSCULAR HEMOGLOBIN 27.7 pg (27.0-31.0); MEAN CORPUSCULAR HGB CONC 31.6 g/dL (32.0-36.0); MEAN CORPUSCULAR VOLUME 87.9 fL (80.0-94.0); MEAN PLATELET VOLUME 9.4 fL (7.4-11.4); MONOCYTES # (AUTO) 0.7 10^3/uL (0.0-1.0); MONOCYTES % (AUTO) 10.8 %; NEUTROPHILS # (AUTO) 3.9 10^3/uL (1.5-6.6); NEUTROPHILS % (AUTO) 58.9 %; PLT - PLATELET COUNT 183 10^3/uL (130-450); RED BLOOD COUNT 3.64 10^6/uL (4.70-6.10); RED CELL DISTRIBUTION WIDTH 18.2 % (12.0-15.0); WHITE BLOOD COUNT 6.6 x10^3/uL (4.8-10.8)
[2018-12-25 05:48] LABS: BILIRUBIN,TOTAL 0.7 mg/dL (0.2-1.0); CALCIUM 8.7 mg/dL (8.5-10.3); CREATININE 0.8 mg/dL (0.6-1.2)
[2018-12-25] MEDS: MEROPENEM 1 GM in SODIUM CHLORIDE 0.9% MINIBAG 100 ML IV SCH ×3 (06:46→22:21)
[2018-12-25] MEDS: IPRATROPIUM/ALBUTEROL 3 ML NEB INH PRN ×3 (07:30→20:35)
[2018-12-25] MEDS: BUDESONIDE 0.5 MG/2 ML NEB INH SCH ×2 (07:30→20:35)
[2018-12-25] MEDS: FORMOTEROL FUMARATE NEB 20 MCG/2 ML INH SCH ×2 (07:30→20:35)
[2018-12-25] MEDS: MAGNESIUM OXIDE 400 MG TABLET PO SCH (08:08)
[2018-12-25] MEDS: SACCHAROMYCES BOULARDII 250 MG CAPSULE PO SCH ×2 (08:08→17:24)
[2018-12-25] MEDS: ASPIRIN CHEW 81 MG TABLET PO SCH (08:28)
[2018-12-25] MEDS: FAMOTIDINE 20 MG TABLET PO SCH ×2 (08:30→21:21)
[2018-12-25] MEDS: DOCUSATE SODIUM 250 MG CAPSULE PO SCH (08:30)
[2018-12-25] MEDS: guaiFENesin 600 MG TABLET PO SCH ×2 (08:31→21:22)
[2018-12-25] MEDS: levETIRAcetam 250 MG TABLET PO SCH ×2 (08:31→21:21)
[2018-12-25] MEDS: LACTOBACILLUS RHAMNOSUS GG CAPSULE PO SCH (08:31)
[2018-12-25] MEDS: NYSTATIN 500000 UNITS/5 ML UDC PO SCH ×4 (08:31→21:22)
[2018-12-25] MEDS: GABAPENTIN 400 MG CAPSULE PO SCH ×2 (08:31→21:21)
[2018-12-25] MEDS: POLYETHYLENE GLYCOL 3350 17 GM PACKET PO SCH (08:32)
[2018-12-25] MEDS: SODIUM BICARBONATE 650 MG TABLET PO SCH ×2 (08:32→21:21)
[2018-12-25] MEDS: SENNA 8.6 MG TABLET PO SCH (08:32)
[2018-12-25] MEDS: TAMSULOSIN 0.4 MG CAPSULE PO SCH (08:32)
[2018-12-25] MEDS: KETOROLAC 15 MG/ML VIAL IVP PRN ×3 (10:08→22:21)
--- NOTE | 2018-12-25 15:44 | PROVIDER PROGRESS NOTE ---
Subjective - Prog Note Date Prog Note Date: 12/25/18 - Subjective Subjective: pt is sleeping at the bed, no complaints. discussed with nurse and PT/OT, pt need ambulate pt is ready and stable to be d/c Current Medications - Current Medications Current Medications: Active Medications Acetaminophen (Tylenol) 650 mg PO Q4HR PRN PRN Reason: Pain 1 to 4 Last Admin: 12/21/18 00:29 Dose: 650 mg Albuterol () 2.5 mg INH RTQ4H PRN PRN Reason: Wheezing Last Admin: 12/23/18 07:56 Dose: 2.5 mg Albuterol/Ipratropium (Duoneb) 3 ml INH Q4HR PRN PRN Reason: Wheezing Last Admin: 12/25/18 07:30 Dose: 3 ml Aspirin ([place] Aspirin) 81 mg PO DAILY [facility] Last Admin: 12/25/18 08:28 Dose: Not Given Atorvastatin Calcium (Lipitor) 10 mg PO QPM [facility] Last Admin: 12/24/18 21:13 Dose: 10 mg Budesonide (Pulmicort) 0.5 mg INH RTBID [facility] Last Admin: 12/25/18 07:30 Dose: 0.5 mg Carboxymethylcellulose (Refresh 1% Ophth Drops) 1 drops EACHEYE PRN PRN PRN Reason: Dry Eye Last Admin: 12/24/18 23:56 Dose: 1 drops Chlorhexidine Gluconate (Peridex) 15 ml PO Q7D [facility] Last Admin: 12/22/18 20:51 Dose: 15 ml Diphenhydramine HCl (Benadryl) 25 mg PO Q6HR PRN PRN Reason: ITCHING Docusate Sodium (Colace 100mg Capsule) 100 mg PO BID PRN PRN Reason: Constipation Docusate Sodium (Colace 250mg Capsule) 250 - 500 mg PO DAILY [facility] Last Admin: 12/25/18 08:30 Dose: 250 mg Enoxaparin Sodium (Lovenox) 40 mg SUBQ HS [facility] Last Admin: 12/24/18 21:15 Dose: Not Given Famotidine (Pepcid) 20 mg PO BID [facility] Last Admin: 12/25/18 08:30 Dose: 20 mg Formoterol Fumarate (Perforomist) 20 mcg INH RTBID [facility] Last Admin: 07/03/19 07:30 Dose: 20 mcg Gabapentin (Neurontin) 1,600 mg PO BID [facility] Last Admin: 12/25/18 08:31 Dose: 1,600 mg Guaifenesin (Mucinex) 600 mg PO BID [facility] Last Admin: 12/25/18 08:31 Dose: 600 mg Heparin Sodium (Beef Lung) () 30 - 50 unit IVP PRN PRN PRN Reason: Port Protocol (<24 hours) Last Admin: 12/22/18 11:41 Dose: 50 unit Meropenem 1 gm/ Sodium (Chloride) 100 mls @ 200 mls/hr IV Q8HR [facility] Last Infusion: 12/25/18 14:51 Dose: Infused Daptomycin 708 mg/ Sodium (Chloride) 100 mls @ 200 mls/hr IV Q24H [facility] Last Infusion: 12/24/18 17:10 Dose: Infused Ketorolac Tromethamine (Toradol Inj (15mg)) 30 mg IVP Q6HR PRN PRN Reason: PAIN Stop: 12/28/18 21:37 Last Admin: 12/25/18 10:08 Dose: 30 mg Lactobacillus Rhamnosus (Culturelle) 1 cap PO DAILY [facility] Last Admin: 12/25/18 08:31 Dose: 1 cap Levetiracetam (Keppra) 500 mg PO BID [facility] Last Admin: 12/25/18 08:31 Dose: 500 mg Lidocaine (Lidoderm Patch) 2 patch TOP DAILY PRN PRN Reason: PAIN Last Admin: 12/24/18 19:16 Dose: 2 patch Lorazepam (Ativan) 1 mg PO Q6H PRN PRN Reason: Anxiety Last Admin: 12/23/18 22:07 Dose: 1 mg Magnesium Oxide (Mag Ox) 400 mg PO DAILYWM [facility] Last Admin: 12/25/18 08:08 Dose: 400 mg Midodrine () 10 mg PO TID PRN PRN Reason: SBP<100 Last Admin: 12/24/18 00:51 Dose: 10 mg Montelukast Sodium (Singulair) 10 mg PO QPM [facility] Last Admin: 12/24/18 21:13 Dose: 10 mg Morphine Sulfate (Morphine (Carpuject)) 2 mg IVP Q2HR PRN PRN Reason: Pain 8 to 10 Last Admin: 12/25/18 14:47 Dose: 2 mg Naloxone HCl (Narcan) 2 mg IVP PRN PRN PRN Reason: opiod od Nystatin (Mycostatin) 5 ml PO QID [facility] Last Admin: 12/25/18 14:06 Dose: 5 ml Ondansetron HCl (Zofran Odt) 4 mg TL Q6HR PRN PRN Reason: Nausea / Vomiting Last Admin: 12/22/18 21:40 Dose: 4 mg Oxycodone HCl (Roxicodone) 5 mg PO Q4HR PRN PRN Reason: PAIN Last Admin: 12/24/18 22:07 Dose: 5 mg Melatonin 3 Mg 1 each PO QPM PRN PRN Reason: Insomnia Polyethylene Glycol (Miralax) 17 gm PO DAILY [facility] Last Admin: 12/25/18 08:32 Dose: 17 gm Polyethylene Glycol (Miralax) 17 gm PO DAILY PRN PRN Reason: Constipation Prochlorperazine Edisylate (Compazine Inj) 10 mg IVP Q6HR PRN PRN Reason: Nausea / Vomiting Saccharomyces Boulardii (Florastor) 500 mg PO BIDWM [facility] Last Admin: 12/25/18 08:08 Dose: 500 mg Senna (Senokot) 8.6 mg PO BID PRN PRN Reason: Constipation Senna (Senokot) 8.6 - 17.2 mg PO DAILY [facility] Last Admin: 12/25/18 08:32 Dose: 8.6 mg Sodium Bicarbonate (Sodium Bicarbonate) 650 mg PO BID [facility] Last Admin: 12/25/18 08:32 Dose: 650 mg Sodium Chloride (Normal Saline Flush 0.9%) 10 ml IVP PRN PRN PRN Reason: NEEDED PER PROVIDER ORDERS Last Admin: 12/25/18 02:30 Dose: 10 ml Sodium Chloride (Normal Saline Flush 0.9%) 10 ml IVP 0100,0900,1700 [facility] Last Admin: 12/25/18 08:32 Dose: Not Given Sodium Chloride (Normal Saline Flush 0.9%) 20 ml IVP PRN PRN PRN Reason: After Blood Draw Last Admin: 12/22/18 15:29 Dose: 10 ml Tamsulosin HCl (Flomax) 0.4 mg PO DAILY [facility] Last Admin: 12/25/18 08:32 Dose: 0.4 mg Lorazepam [Ativan] 1 mg PO Q8HR PRN 09/23/15 Tamsulosin [Flomax] 0.4 mg PO DAILY 06/29/16 Oxycodone HCl 10 - 20 mg PO Q4HR PRN MDD 8 tabs 07/26/17 Lidocaine Ointment 5% [Xylocaine Ointment 5%] 1 appful TOP PRN PRN 08/20/17 Potassium Chloride [K-Dur] 40 meq PO BID 08/30/17 Gabapentin [Neurontin] 1,600 mg PO BID 09/27/17 Albuterol Sulf [Ventolin Hfa Inhaler] 2 puffs INH Q4HR PRN 05/09/18 Melatonin 3 - 6 mg PO QPM PRN 05/09/18 Vitamin B Complex/Folic Acid [Vitamin B-100 Complex Tablet] 1 tab PO DAILY 05/09/18 Nystatin 5 ml PO QID 10/04/18 diphenhydrAMINE [Benadryl] 25 mg PO Q6HR PRN 10/04/18 Sennosides/Docusate Sodium [Docusate Sodium-Senna Tablet] 1 tab PO BID PRN 11/13/18 Chlorhexidine Gluconate [Peridex] 15 ml PO DAILY 12/18/18 Esomeprazole Magnesium [Nexium] 20 mg PO DAILY 12/18/18 Magnesium 250 mg PO DAILY 12/18/18 Oxycodone HCl [Oxycontin] 20 mg PO TID 12/18/18 Polyethylene Glycol 3350 [Miralax] 17 gm PO DAILY PRN 12/18/18 Torsemide 20 mg PO BID 12/19/18 Budesonide/Formoterol Fumarate [Symbicort 160-4.5 Mcg Inhaler] 2 puffs IH BID 12/20/18 hydrOXYzine PAMOATE [Vistaril] 25 mg PO TID PRN 12/20/18 Objective - Vital Signs/Intake & Output Vital Signs: Vital Signs x48h Temp Pulse Resp BP Pulse Ox 12/25/18 10:08 131/80 H 12/25/18 08:00 36.6 C 93 18 115/75 97 Intake & Output: Intake & Output 12/22/18 12/23/18 12/24/18 12/25/18 23:59 23:59 23:59 23:59 Intake Total 3892.013 7887 2196 1220 Output Total 3870 3300 1150 925 Balance -2151.667 -805 1046 295 - Objective General Appearance: positive: No acute distress, Alert. negative: Lethargic Eyes Bilateral: positive: Normal inspection, PERRL, No lid inflammation, Conjunctivae nml ENT: positive: ENT inspection nml, Pharynx nml, No signs of dehydration. negative: Purulent nasal drainage, Pharyngeal erythema, Oral lesions Neck: positive: Nml inspection, Thyroid nml, No JVD, Trachea midline. negative: Thyromegaly, Lymphadenopathy (R), Lymphadenopathy (L), Stiff neck, Swelling/bruising, Tracheal deviation Respiratory: positive: Chest non-tender, No respiratory distress. negative: Wheezes, Rales, Rhonchi Cardiovascular: positive: Regular rate & rhythm, No murmur, No gallop. negative: Irregularly irregular, Extrasystoles, Tachycardia, Bradycardia, JVD present, Systolic murmur, Diastolic murmur Peripheral Pulses: 2+ Radial (R), 2+ Radial (L), 2+ Dorsalis pedis (R), 2+ Dorsalis pedis (L) Abdomen: positive: Non-tender, No organomegaly, Nml bowel sounds, No distention. negative: Tenderness, Guarding, Rebound Back: positive: Nml inspection. negative: CVA tenderness (R), CVA tenderness (L) Skin: positive: Color nml, No rash, Warm, Dry. negative: Cyanosis, Diaphoresis, Pallor, Skin rash Extremities: positive: Non-tender. negative: Calf tenderness, Abhijit's sign/cords Neurologic/Psychiatric: positive: Oriented x3, Sensation nml. negative: Weakness, Sensory loss, Facial droop, Slurred/abnml speech, Depressed mood/affect - Lab Results Fish Bones: 12/25/18 05:20 12/25/18 05:20 Other Labs: Lab Results x24hrs 12/25/18 12/25/18 Range/Units 05:20 05:20 WBC 6.6 (4.8-10.8) x10^3/uL RBC 3.64 L (4.70-6.10) 10^6/uL Hgb 10.1 L (14.0-18.0) g/dL Hct 32.0 L (42.0-52.0) % MCV 87.9 (80.0-94.0) fL MCH 27.7 (27.0-31.0) pg MCHC 31.6 L (32.0-36.0) g/dL RDW 18.2 H (12.0-15.0) % Plt Count 183 (130-450) 10^3/uL MPV 9.4 (7.4-11.4) fL Neut # (Auto) 3.9 (1.5-6.6) 10^3/uL Lymph # (Auto) 1.6 (1.5-3.5) 10^3/uL Bennett # (Auto) 0.7 (0.0-1.0) 10^3/uL Eos # (Auto) 0.4 (0.0-0.7) 10^3/uL Baso # (Auto) 0.0 (0.0-0.1) 10^3/uL Absolute Nucleated RBC 0.00 x10^3/uL Nucleated RBC % 0.0 /100WBC Sodium 140 (135-145) mmol/L Potassium 4.0 (3.5-5.0) mmol/L Chloride 107 (101-111) mmol/L Carbon Dioxide 23 (21-32) mmol/L Anion Gap 10.0 (6-13) BUN 14 (6-20) mg/dL Creatinine 0.8 (0.6-1.2) mg/dL Estimated GFR (MDRD) 100 (>89) Glucose 107 H (70-100) mg/dL Calcium 8.7 (8.5-10.3) mg/dL Total Bilirubin 0.7 (0.2-1.0) mg/dL AST 16 (10-42) IU/L ALT 10 (10-60) IU/L Alkaline Phosphatase 55 (42-121) IU/L Total Protein 6.0 L (6.7-8.2) g/dL Albumin 3.0 L (3.2-5.5) g/dL Globulin 3.0 (2.1-4.2) g/dL Albumin/Globulin Ratio 1.0 (1.0-2.2) ABX Reporting Has patient been on IV antibiotics over the past 48 hours?: Yes Sepsis Event Note (H) - Evaluation Current Stage of Sepsis: Ruled out Assessment/Plan - Problem List (1) Seizure Impression: 7/3 no seizure, continue take Keppra pt is clinic stable and ready to be d/c, social services seek placement for pt. 12/24 no seizure, pt is medical ready to be d/c 12/23 no seizure, stable, continue Keppra pt is ready for d/c 12/22 no seizure, stable,continue Keppra 12/21 pt has no seizure since pt was admitted continue Keppra, seizure precaution pt has hx of seizure since he had brain surgery. but pt has non compliance his medical treatment, report he did not take his seizure meds continue Keppra seizure precaution. 2. Acute cardiopulmonary arrest status post CPR hemodynamic stable now continue tele and vital monitor 3. Acute pulmonary contusion and associated rib fractures sec to CPR 12/25 continue incentive spirometer 12/23 continue pain, precaution of hypotension continue incentive spirometer continue pain control, but precaution of pt's respiratory status incentive spirometer 4. Hypotensive event 12/23 stable, vital monitor hold pt's BP meds now will reduce pt's pain meds to remain his BP level continue vital monitor 5. Acute respiratory distress with hypoxia 12/23 stable, encourage ambulation safely treat pneumonia with antibiotics, pulmcort and Duoneb PRN supplement of O2 as needed 12/22 pt require 5 liter of O2, his O2 sat is 92%. pt has pneumonia with pulmonary edema, with hx of COPD and current tobacco smoker treat pneumonia with antibiotics, pulmcort and Duoneb PRN supplement of O2 as needed stable, continue RT and breath treatment supple O2 as needed 6. COPD w/o exacerabation continue Duoneb and pulmocord as needed 7. 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 PVD with ischemic ulcer to right lateral foot, recent left foot infection s/p IV daptomycin 12/23 continue antibiotics continue vac and wound care continue wound care and wound consult continue Dr. Fleming's ID recommendation to treat infection with Meropenem and Daptomycin 9. Chronic pain syndrome with opiate dependence/CBP pain control, precaution of hypotensive 10. Oropharyngeal Heather resolved 11. CAD stable, continue home continue tele and vital monitor 12. Medical noncompliance advise pt for medical compliance 13. Chronic tobacco use/dependence advise pt quit tobacco 14 weakness 12/22 continue PT/OT 12/21 consult with PT/OT, will followup 15, pneumonia 12/23 continue antibiotics encourage ambulation continue incentive spirometer 12/22 pt request O2 at 5 liter, O2 sat is 92% pt need more ambulate, can not only stay in the bed, discussed with pt, nurse, will discuss with PT/OT continue incentive Spirometer continue meropenem and Daptomycin continue RT treatment add Lasix, lab monitor CXR reveals pt has mild pulmonary edema with infiltrate continue meropenem and Daptomycin continue RT treatment add Lasix, lab monitor
[2018-12-25] MEDS: SODIUM CHLORIDE 0.9% IV SCH (16:02)
[2018-12-25] MEDS: DAPTOMYCIN IV SCH (16:02)
[2018-12-25] MEDS: MONTELUKAST 10 MG TABLET PO SCH (21:21)
[2018-12-25] MEDS: ATORVASTATIN 10 MG TABLET PO SCH (21:21)
[2018-12-25] MEDS: ENOXAPARIN 40 MG/0.4 ML SYRINGE SUBQ SCH (21:22)
[2018-12-25] MEDS: LORazepam 1 MG TABLET PO PRN (22:21)
[2018-12-26] MEDS: SODIUM CHLORIDE FLUSH 0.9% 10 ML SYRINGE IVP SCH ×3 (00:02→16:54)
[2018-12-26] MEDS: MORPHINE 2 MG/ML CARPUJECT IVP PRN ×6 (00:03→18:11)
[2018-12-26] MEDS: SODIUM CHLORIDE FLUSH 0.9% 10 ML SYRINGE IVP PRN ×2 (03:15→11:24)
[2018-12-26 05:00] LABS: BASOPHILS # (AUTO) 0.1 10^3/uL (0.0-0.1); BASOPHILS % (AUTO) 0.9 %; EOSINOPHILS # (AUTO) 0.4 10^3/uL (0.0-0.7); EOSINOPHILS % (AUTO) 6.3 %; HGB - HEMOGLOBIN 9.9 g/dL (14.0-18.0); LYMPHOCYTES # (AUTO) 1.6 10^3/uL (1.5-3.5); MEAN CORPUSCULAR HEMOGLOBIN 27.4 pg (27.0-31.0); MEAN CORPUSCULAR HGB CONC 30.8 g/dL (32.0-36.0); MEAN CORPUSCULAR VOLUME 88.9 fL (80.0-94.0); MEAN PLATELET VOLUME 9.2 fL (7.4-11.4); MONOCYTES # (AUTO) 0.6 10^3/uL (0.0-1.0); MONOCYTES % (AUTO) 10.8 %; NEUTROPHILS % (AUTO) 53.5 %; PLT - PLATELET COUNT 172 10^3/uL (130-450); RED BLOOD COUNT 3.61 10^6/uL (4.70-6.10); RED CELL DISTRIBUTION WIDTH 17.9 % (12.0-15.0); WHITE BLOOD COUNT 5.7 x10^3/uL (4.8-10.8)
[2018-12-26 05:09] LABS: CALCIUM 9.1 mg/dL (8.5-10.3); CREATININE 0.9 mg/dL (0.6-1.2)
[2018-12-26] MEDS: MEROPENEM 1 GM in SODIUM CHLORIDE 0.9% MINIBAG 100 ML IV SCH ×3 (05:39→21:09)
[2018-12-26] MEDS: KETOROLAC 15 MG/ML VIAL IVP PRN ×2 (05:41→21:57)
[2018-12-26] MEDS: FORMOTEROL FUMARATE NEB 20 MCG/2 ML INH SCH ×2 (07:27→20:48)
[2018-12-26] MEDS: ALBUTEROL NEB 2.5 MG/3 ML INH PRN (07:27)
[2018-12-26] MEDS: BUDESONIDE 0.5 MG/2 ML NEB INH SCH ×2 (07:27→20:48)
[2018-12-26] MEDS: MAGNESIUM OXIDE 400 MG TABLET PO SCH (08:10)
[2018-12-26] MEDS: NYSTATIN 500000 UNITS/5 ML UDC PO SCH ×4 (08:10→21:07)
[2018-12-26] MEDS: POLYETHYLENE GLYCOL 3350 17 GM PACKET PO SCH (08:10)
[2018-12-26] MEDS: ASPIRIN CHEW 81 MG TABLET PO SCH ×2 (08:10→11:05)
[2018-12-26] MEDS: GABAPENTIN 400 MG CAPSULE PO SCH ×2 (08:11→21:07)
[2018-12-26] MEDS: SACCHAROMYCES BOULARDII 250 MG CAPSULE PO SCH ×2 (08:11→16:54)
[2018-12-26] MEDS: DOCUSATE SODIUM 250 MG CAPSULE PO SCH ×2 (08:11→11:05)
[2018-12-26] MEDS: SENNA 8.6 MG TABLET PO SCH ×2 (08:13→11:05)
[2018-12-26] MEDS: LACTOBACILLUS RHAMNOSUS GG CAPSULE PO SCH (08:13)
[2018-12-26] MEDS: TAMSULOSIN 0.4 MG CAPSULE PO SCH (08:13)
[2018-12-26] MEDS: levETIRAcetam 250 MG TABLET PO SCH ×2 (08:13→21:08)
[2018-12-26] MEDS: guaiFENesin 600 MG TABLET PO SCH ×2 (08:13→21:08)
[2018-12-26] MEDS: SODIUM BICARBONATE 650 MG TABLET PO SCH ×2 (08:13→21:08)
[2018-12-26] MEDS: FAMOTIDINE 20 MG TABLET PO SCH ×2 (08:14→21:08)
[2018-12-26] MEDS ORDERED: SODIUM CHLORIDE 0.9% IV SCH (10:32)
[2018-12-26] MEDS ORDERED: DAPTOMYCIN IV SCH (10:32)
[2018-12-26] MEDS: ACETAMINOPHEN 325 MG TABLET PO PRN (11:23)
[2018-12-26] MEDS: oxyCODONE 5 MG TABLET PO PRN (11:23)
--- NOTE | 2018-12-26 14:34 | PROVIDER PROGRESS NOTE ---
Subjective - Prog Note Date Prog Note Date: 12/26/18 Prog Note Time: 14:27 - Subjective Pt reports feeling: Improved Subjective: Alonso complains of not getting his regular pain medications. He denies any seizures, chest pain, shortness of breath (puts oxygen on if this occurs), a new cough or a rash. Current Medications - Current Medications Current Medications: Active Medications: Acetaminophen (Tylenol) 650 mg PO Q4HR PRN Albuterol 2.5 mg INH RTQ4H PRN Albuterol/Ipratropium (Duoneb) 3 ml INH Q4HR PRN Aspirin ([facility] [place] Aspirin) 81 mg PO DAILY [facility] Atorvastatin Calcium (Lipitor) 10 mg PO QPM [facility] Budesonide (Pulmicort) 0.5 mg INH RTBID [facility] Carboxymethylcellulose (Refresh 1% Ophth Drops) 1 drops EACHEYE PRN PRN Chlorhexidine Gluconate (Peridex) 15 ml PO Q7D [facility] Diphenhydramine HCl (Benadryl) 25 mg PO Q6HR PRN Docusate Sodium (Colace 100mg Capsule) 100 mg PO BID PRN Docusate Sodium (Colace 250mg Capsule) 250 - 500 mg PO DAILY [facility] Enoxaparin Sodium (Lovenox) 40 mg SUBQ HS [facility] Famotidine (Pepcid) 20 mg PO BID [facility] Formoterol Fumarate (Perforomist) 20 mcg INH RTBID [facility] Gabapentin (Neurontin) 1,600 mg PO BID [facility] Guaifenesin (Mucinex) 600 mg PO TID [facility] Heparin Sodium (Beef Lung) 30 - 50 unit IVP PRN PRN Hydroxyzine Pamoate (Vistaril) 25 mg PO TID PRN Meropenem 1 gm/ Sodium (Chloride) 100 mls @ 200 mls/hr IV Q8HR [facility] Daptomycin 708 mg/ Sodium (Chloride) 114.2 mls @ 200 mls/hr IV Q24H [facility] Ketorolac Tromethamine (Toradol Inj (15mg)) 30 mg IVP Q6HR PRN Lactobacillus Rhamnosus (Culturelle) 1 cap PO DAILY [facility] Levetiracetam (Keppra) 500 mg PO BID [facility] Lidocaine (Lidoderm Patch) 2 patch TOP DAILY PRN Lorazepam (Ativan) 1 mg PO Q6H PRN Magnesium Oxide (Mag Ox) 400 mg PO DAILYWM [facility] Midodrine 10 mg PO TID PRN Montelukast Sodium (Singulair) 10 mg PO QPM [facility] Morphine Sulfate (Morphine (Carpuject) 2 mg IVP Q2HR PRN Naloxone HCl (Narcan) 2 mg IVP PRN PRN Nystatin (Mycostatin) 5 ml PO QID [facility] Ondansetron HCl (Zofran Odt) 4 mg TL Q6HR PRN Oxycodone HCl (Roxicodone) 10 mg PO Q4HR PRN Oxycodone HCl (Oxycontin) 10 mg PO BID [facility] Melatonin 3 Mg 1 each PO QPM PRN Polyethylene Glycol (Miralax) 17 gm PO DAILY [facility] Polyethylene Glycol (Miralax) 17 gm PO DAILY PRN Prochlorperazine Edisylate (Compazine Inj) 10 mg IVP Q6HR PRN Saccharomyces Boulardii (Florastor) 500 mg PO BIDWM [facility] Senna (Senokot) 8.6 mg PO BID PRN Senna (Senokot) 8.6 - 17.2 mg PO DAILY [facility] Sodium Bicarbonate (Sodium Bicarbonate) 650 mg PO BID [facility] Spironolactone (Aldactone) 25 mg PO DAILY [facility] Tamsulosin HCl (Flomax) 0.4 mg PO DAILY [facility] HOME meds: Lorazepam [Ativan] 1 mg PO Q8HR PRN 09/23/15 Tamsulosin [Flomax] 0.4 mg PO DAILY 06/29/16 Oxycodone HCl 10 - 20 mg PO Q4HR PRN MDD 8 tabs 07/26/17 Lidocaine Ointment 5% [Xylocaine Ointment 5%] 1 appful TOP PRN PRN 08/20/17 Potassium Chloride [K-Dur] 40 meq PO BID 08/30/17 Gabapentin [Neurontin] 1,600 mg PO BID 09/27/17 Albuterol Sulf [Ventolin Hfa Inhaler] 2 puffs INH Q4HR PRN 05/09/18 Melatonin 3 - 6 mg PO QPM PRN 05/09/18 Vitamin B Complex/Folic Acid [Vitamin B-100 Complex Tablet] 1 tab PO DAILY 05/09/18 Nystatin 5 ml PO QID 10/04/18 diphenhydrAMINE [Benadryl] 25 mg PO Q6HR PRN 10/04/18 Sennosides/Docusate Sodium [Docusate Sodium-Senna Tablet] 1 tab PO BID PRN 11/13/18 Chlorhexidine Gluconate [Peridex] 15 ml PO DAILY 12/18/18 Esomeprazole Magnesium [Nexium] 20 mg PO DAILY 12/18/18 Magnesium 250 mg PO DAILY 12/18/18 Oxycodone HCl [Oxycontin] 20 mg PO TID 12/18/18 Polyethylene Glycol 3350 [Miralax] 17 gm PO DAILY PRN 12/18/18 Torsemide 20 mg PO BID 12/19/18 Budesonide/Formoterol Fumarate [Symbicort 160-4.5 Mcg Inhaler] 2 puffs IH BID 12/20/18 hydrOXYzine PAMOATE [Vistaril] 25 mg PO TID PRN 12/20/18 Objective - Vital Signs/Intake & Output Reviewed Vital Signs: Yes Vital Signs: Vital Signs x48h Temp Pulse Pulse Resp BP Pulse Ox 12/26/18 07:30 80 18 12/26/18 07:21 36.1 C L 80 17 126/90 H 96 Intake & Output: Intake & Output 12/23/18 12/24/18 12/25/18 12/26/18 23:59 23:59 23:59 23:59 Intake Total 2990 2196 2620 590 Output Total 3300 1150 1250 1150 Balance -310 1046 1370 -560 - Objective General Appearance: positive: Alert, Moderate distress, Anxious Eyes Bilateral: positive: No lid inflammation Eyes: OU Conjunctivae pale, OU Scleral icterus ENT: positive: Pharynx nml, Dry mucous membranes Neck: positive: No JVD, Trachea midline Respiratory: positive: Chest non-tender, No respiratory distress, Other (diminshed with fine crackles) Cardiovascular: positive: No gallop, Irregularly irregular, Systolic murmur, Decreased pulse(s) Peripheral Pulses: 1+ Radial (R), 1+ Radial (L) Abdomen: positive: Non-tender, Hepatomegaly, Other (rounded, soft) Back: positive: Nml inspection Skin: positive: No rash, Warm, Dry, Pallor, Other (yellowing of fingernails/hair) Neurologic/Psychiatric: positive: Oriented x3, CN's nml (2-12), Motor nml, Weakness, Sensory loss, Slurred/abnml speech (baseline at times), Depressed mood/affect Reflexes: Bicep (R): 3+, Bicep (L): 3+ - Lab Results Fish Bones: 12/27/18 05:10 12/27/18 05:10 Other Labs: Lab Results x24hrs 12/26/18 12/26/18 12/25/18 Range/Units 04:45 04:45 18:00 WBC 5.7 (4.8-10.8) x10^3/uL RBC 3.61 L (4.70-6.10) 10^6/uL Hgb 9.9 L (14.0-18.0) g/dL Hct 32.1 L (42.0-52.0) % MCV 88.9 (80.0-94.0) fL MCH 27.4 (27.0-31.0) pg MCHC 30.8 L (32.0-36.0) g/dL RDW 17.9 H (12.0-15.0) % Plt Count 172 (130-450) 10^3/uL MPV 9.2 (7.4-11.4) fL Neut # (Auto) 3.0 (1.5-6.6) 10^3/uL Lymph # (Auto) 1.6 (1.5-3.5) 10^3/uL Callahan # (Auto) 0.6 (0.0-1.0) 10^3/uL Eos # (Auto) 0.4 (0.0-0.7) 10^3/uL Baso # (Auto) 0.1 (0.0-0.1) 10^3/uL Absolute Nucleated RBC 0.00 x10^3/uL Nucleated RBC % 0.0 /100WBC Sodium 142 (135-145) mmol/L Potassium 4.1 (3.5-5.0) mmol/L Chloride 108 (101-111) mmol/L Carbon Dioxide 23 (21-32) mmol/L Anion Gap 11.0 (6-13) BUN 16 (6-20) mg/dL Creatinine 0.9 (0.6-1.2) mg/dL Estimated GFR (MDRD) 87 L (>89) Glucose 101 H (70-100) mg/dL Calcium 9.1 (8.5-10.3) mg/dL C. difficile Tox B Gene NEGATIVE (NEGATIVE) ABX Reporting Has patient been on IV antibiotics over the past 48 hours?: Yes Assessment/Plan - Problem List (1) Right foot ulcer Impression: - Medically cleared for discharge, pending set up with [facility] to ensure continued IV treatment verses an accepting facility - Discharged from [place] [facility] on 12/17/2018 with orders to continue; Daptomycin IV 700 mg Q24 hours for 25 days ~ 01/11 Ertapenem IV 1 G Q24H for 16 days ~ 01/02 - Was getting IV infusion through the [facility] - Likely discharge in the AM with IV infusion set up Plan: Continue to monitor, continue IV treatment, encourage leg elevation when in the chair (2) Pneumonia Impression: - Temp max 39.1 on 12/21 - Infiltrates on chest x-ray - Chest CT notes NEW rib fractures to the anterior left 5th rib, 6th posterior - Continues on Daptomycin, and Ertapenem for his leg ulcers - Chronic sputum, no worse - Intermittently uses oxygen - Diminished with crackles on exam Plan: Continue to monitor, consider at walking oxygen test upon discharge Qualifiers: Pneumonia type: due to unspecified organism Laterality: right Lung location: lower lobe of lung Qualified Code(s): J18.1 - Lobar pneumonia, unspecified organism (3) Recurrent seizures Impression: - The patient suffered a witnessed seizure while in the [facility] - He was then postictal, but now back to baseline - He was unclear if he was taking his Keppra or not, he states that he "assumes they are giving it to me" - Lives at home and has caregivers - No reported seizures from nursing staff Plan: Continue to monitor, continue Keppra (4) COPD (chronic obstructive pulmonary disease) with acute bronchitis Impression: - Patient continues to smoke at home - Life long, >40 years - Now with metastatic lung cancer Plan: Continue to monitor, oxygen walking test upon discharge (5) Episode of syncope Impression: - The patient had a seizure in the [facility] clinic followed by occlusion of his airway, hypoxia and brief loss of pulses - Airway was reopened, oxygen applied and pulses returned He was then postictal and is now back to baseline. Has had seizures in the past. He is unclear if he is taking his Keppra or not, he states that he "assumes they are giving it to me". Lives at home and has caregivers. Qualifiers: Syncope type: unspecified Qualified Code(s): R55 - Syncope and collapse (6) PVD (peripheral vascular disease) Impression: - Recurrent wounds, [facility] clinic follows - Recently at [place] and discharged with instructions to continue IV Ertapenem through 01/02 Plan: Continue to support, IV antibiotics, maintain wound VAC per [facility] (7) Chronic pain syndrome Impression: - Takes oxycodone, OxyContin and gabapentin for this - No radiation of pain - Worse when attempting to walk - Drinks 4-6 24 oz. [place]ricanes per day - States that he takes 3200 mg of gabapentin per day - Increased from BID to TID gabapentin Plan: Continue oxycodone, resume long acting oxycontin, monitor for improvement (8) Brain cancer Impression: - 2 brain mets from lung CA - Status post craniotomy in 2017 - Consequently has recurrent seizures of which he takes Keppra for Plan: Continue Keppra, monitor for seizures (9) Cor pulmonale Impression: - As per the patient's last echo, Moderate RV dilation with normal systolic function - Enlarged RA- severe - RVSP at rest was 52 mmHg - Torsemide listed on pharmacy list, but he was not discharged on this from [place] [facility] on 12/17/2018 - Possibly start Spironolactone Plan: Resume diuretics after pharmacy review (10) Metastatic non-small cell lung cancer Impression: - Has a port a cath over the SVC since his chemo treatment - Status post chemo - No reports of bloody sputum - May require O2 for home use based on this diagnosis and Cor pulmonale Plan: Continue to monitor, give oxygen (11) Alcohol abuse Impression: - [facility] notes that he was treated for ETOH withdrawal at the beginning of his stay on 11/30/2018 - Patient admits to continued use - Also with 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
[2018-12-26] MEDS: DAPTOMYCIN IV SCH (15:53)
[2018-12-26] MEDS: SODIUM CHLORIDE 0.9% IV SCH (15:53)
[2018-12-26] MEDS: IPRATROPIUM/ALBUTEROL 3 ML NEB INH PRN (16:27)
[2018-12-26] MEDS: LORazepam 1 MG TABLET PO PRN (16:54)
[2018-12-26] MEDS ORDERED: hydrOXYzine PAMOATE 25 MG CAPSULE PO PRN (19:22)
[2018-12-26] MEDS: MONTELUKAST 10 MG TABLET PO SCH (21:07)
[2018-12-26] MEDS: ATORVASTATIN 10 MG TABLET PO SCH (21:08)
[2018-12-26] MEDS: oxyCODONE ER 10 MG TABLET PO SCH (21:08)
[2018-12-26] MEDS: ENOXAPARIN 40 MG/0.4 ML SYRINGE SUBQ SCH (21:08)
[2018-12-26] MEDS: CHLORHEXIDINE GLUCONATE 15 ML UDC PO SCH (21:08)
[2018-12-27] MEDS: MORPHINE 2 MG/ML CARPUJECT IVP PRN ×8 (00:12→20:03)
[2018-12-27] MEDS: SODIUM CHLORIDE FLUSH 0.9% 10 ML SYRINGE IVP SCH ×3 (00:16→17:08)
[2018-12-27] MEDS: MEROPENEM 1 GM in SODIUM CHLORIDE 0.9% MINIBAG 100 ML IV SCH ×3 (05:35→21:27)
[2018-12-27] MEDS: guaiFENesin 600 MG TABLET PO SCH ×3 (05:35→21:02)
[2018-12-27 05:45] LABS: BASOPHILS # (AUTO) 0.1 10^3/uL (0.0-0.1); BASOPHILS % (AUTO) 0.8 %; EOSINOPHILS # (AUTO) 0.4 10^3/uL (0.0-0.7); EOSINOPHILS % (AUTO) 6.2 %; HGB - HEMOGLOBIN 10.3 g/dL (14.0-18.0); LYMPHOCYTES # (AUTO) 1.6 10^3/uL (1.5-3.5); LYMPHOCYTES % (AUTO) 26.1 %; MEAN CORPUSCULAR HGB CONC 32.8 g/dL (32.0-36.0); MEAN CORPUSCULAR VOLUME 88.5 fL (80.0-94.0); MEAN PLATELET VOLUME 9.4 fL (7.4-11.4); MONOCYTES # (AUTO) 0.7 10^3/uL (0.0-1.0); MONOCYTES % (AUTO) 10.5 %; NEUTROPHILS # (AUTO) 3.5 10^3/uL (1.5-6.6); NEUTROPHILS % (AUTO) 56.1 %; PLT - PLATELET COUNT 196 10^3/uL (130-450); RED BLOOD COUNT 3.55 10^6/uL (4.70-6.10); RED CELL DISTRIBUTION WIDTH 17.4 % (12.0-15.0); WHITE BLOOD COUNT 6.2 x10^3/uL (4.8-10.8)
[2018-12-27 05:52] LABS: CALCIUM 8.7 mg/dL (8.5-10.3); CREATININE 0.8 mg/dL (0.6-1.2)
[2018-12-27] MEDS: BUDESONIDE 0.5 MG/2 ML NEB INH SCH ×2 (07:25→19:59)
[2018-12-27] MEDS: FORMOTEROL FUMARATE NEB 20 MCG/2 ML INH SCH ×2 (07:26→19:59)
[2018-12-27] MEDS: GABAPENTIN 400 MG CAPSULE PO SCH ×2 (09:08→20:54)
[2018-12-27] MEDS: NYSTATIN 500000 UNITS/5 ML UDC PO SCH ×4 (09:09→20:55)
[2018-12-27] MEDS: SACCHAROMYCES BOULARDII 250 MG CAPSULE PO SCH ×2 (09:09→17:08)
[2018-12-27] MEDS: LACTOBACILLUS RHAMNOSUS GG CAPSULE PO SCH (09:09)
[2018-12-27] MEDS: MAGNESIUM OXIDE 400 MG TABLET PO SCH (09:10)
[2018-12-27] MEDS: oxyCODONE ER 10 MG TABLET PO SCH ×2 (09:10→20:54)
[2018-12-27] MEDS: levETIRAcetam 250 MG TABLET PO SCH ×2 (09:11→20:55)
[2018-12-27] MEDS: SODIUM BICARBONATE 650 MG TABLET PO SCH ×2 (09:11→20:57)
[2018-12-27] MEDS: ASPIRIN CHEW 81 MG TABLET PO SCH (09:13)
[2018-12-27] MEDS: POLYETHYLENE GLYCOL 3350 17 GM PACKET PO SCH (09:14)
[2018-12-27] MEDS: DOCUSATE SODIUM 250 MG CAPSULE PO SCH (09:14)
[2018-12-27] MEDS: SENNA 8.6 MG TABLET PO SCH (09:14)
[2018-12-27] MEDS: FAMOTIDINE 20 MG TABLET PO SCH ×2 (09:14→20:55)
[2018-12-27] MEDS: TAMSULOSIN 0.4 MG CAPSULE PO SCH (09:15)
[2018-12-27] MEDS: SODIUM CHLORIDE FLUSH 0.9% 10 ML SYRINGE IVP PRN ×3 (10:48→20:04)
[2018-12-27] MEDS ORDERED: LORazepam 2 MG/ML VIAL IVP ONE ×2 (11:05)
[2018-12-27] MEDS: LORazepam 1 MG TABLET PO PRN (12:57)
--- NOTE | 2018-12-27 13:35 | MRI Report ---
Reason: seizures, brain mets Procedure Date: 12/27/2018 Accession Number: [id number] / [id number] Procedure: MRI - Brain W/O CPT Code: FULL RESULT: EXAM: MRI BRAIN WITHOUT CONTRAST EXAM DATE: 12/27/2018 12:18 PM. CLINICAL HISTORY: Seizures, brain metastases. COMPARISON: BRAIN W/WO 12/11/2017 12:23 PM. TECHNIQUE: Multiplanar, multisequence T1-weighted and fluid-sensitive MR sequences of the brain were performed. Sequences optimized for routine evaluation. Other: None. IV Contrast: None. FINDINGS: Noncontrast images of the brain again demonstrate a right high frontal craniotomy. There is a surgical resection site in the right frontal lobe which has decreased in size with some associated magnetic susceptibility. The amount of adjacent FLAIR signal is stable. No restricted diffusion signal is present in the brain parenchyma. No new focus of magnetic susceptibility has developed in the brain parenchyma. Areas of FLAIR hyperintense signal scattered throughout the cerebral hemisphere white matter involving the subcortical and deep white matter are stable. Some of this is confluent particularly in the periventricular white matter of each parietal lobe. This is stable. No new mass-like area of FLAIR hyperintense signal has developed. No abnormal T2 or FLAIR hyperintense signal is present in the cerebral hemisphere white matter. No extra-axial fluid collection is seen. The ventricles and sulci are prominent, which is stable. There is an expected flow void in the major intracranial vessels at the skull base. No mass is present in either orbit or in either Meckel's cave. There is an expected flow void in the superior sagittal sinus. Bilateral maxillary sinus mucosal thickening is seen. Retention cyst/polyp formation is seen in the right maxillary sinus. No cerebellar tonsillar ectopia is present. The hippocampal formations are grossly symmetric in size without abnormal signal noted in either hippocampal formation. IMPRESSION: 1. Interval decrease in size of the surgical resection site. 2. Stable edema adjacent to the surgical resection site. 3. No new intracranial mass is identified by noncontrast MRI. 4. FLAIR hyperintensities in the cerebral hemisphere white matter could be the sequela of small vessel ischemic change or could be related to prior treatment for intracranial metastatic disease. 5. Generalized cerebral and cerebellar atrophy is seen. This might well be the sequelae of prior treatment. 6. No acute or subacute CVA. RADIA
[2018-12-27] MEDS: SODIUM CHLORIDE 0.9% IV SCH (17:07)
[2018-12-27] MEDS: DAPTOMYCIN IV SCH (17:07)
[2018-12-27] MEDS: oxyCODONE 5 MG TABLET PO PRN (17:16)
[2018-12-27] MEDS: IPRATROPIUM/ALBUTEROL 3 ML NEB INH PRN (19:59)
[2018-12-27] MEDS: MONTELUKAST 10 MG TABLET PO SCH (20:54)
[2018-12-27] MEDS: ATORVASTATIN 10 MG TABLET PO SCH (20:55)
[2018-12-27] MEDS: ENOXAPARIN 40 MG/0.4 ML SYRINGE SUBQ SCH (20:55)
[2018-12-27] MEDS: LIDOCAINE PATCH 5% TOP PRN (22:32)
[2018-12-28] MEDS: oxyCODONE 5 MG TABLET PO PRN ×2 (01:10→06:51)
[2018-12-28] MEDS: MORPHINE 2 MG/ML CARPUJECT IVP PRN ×5 (01:15→15:06)
[2018-12-28] MEDS: SODIUM CHLORIDE FLUSH 0.9% 10 ML SYRINGE IVP SCH ×2 (01:16→09:18)
[2018-12-28] MEDS: MEROPENEM 1 GM in SODIUM CHLORIDE 0.9% MINIBAG 100 ML IV SCH ×2 (06:44→14:35)
[2018-12-28] MEDS: guaiFENesin 600 MG TABLET PO SCH ×2 (06:45→13:51)
[2018-12-28] MEDS: FORMOTEROL FUMARATE NEB 20 MCG/2 ML INH SCH (07:20)
[2018-12-28] MEDS: IPRATROPIUM/ALBUTEROL 3 ML NEB INH PRN (07:20)
[2018-12-28] MEDS: BUDESONIDE 0.5 MG/2 ML NEB INH SCH (07:20)
[2018-12-28] MEDS: SACCHAROMYCES BOULARDII 250 MG CAPSULE PO SCH (08:12)
[2018-12-28] MEDS: MAGNESIUM OXIDE 400 MG TABLET PO SCH (08:12)
[2018-12-28] MEDS: ASPIRIN CHEW 81 MG TABLET PO SCH (08:17)
[2018-12-28] MEDS: SENNA 8.6 MG TABLET PO SCH (08:18)
[2018-12-28] MEDS: POLYETHYLENE GLYCOL 3350 17 GM PACKET PO SCH (08:19)
--- NOTE | 2018-12-28 08:54 | PROVIDER PROGRESS NOTE ---
Subjective - Prog Note Date Prog Note Date: 12/27/18 Prog Note Time: 10:00 - Subjective Pt reports feeling: Improved Subjective: Alonso is agreeable to staying another night to ensure the [facility] clinic can administer the IV medications needed. He denies new symptoms. Current Medications - Current Medications Current Medications: Active Medications: Acetaminophen (Tylenol) 650 mg PO Q4HR PRN Albuterol 2.5 mg INH RTQ4H PRN Albuterol/Ipratropium (Duoneb) 3 ml INH Q4HR PRN Aspirin ([place] Aspirin) 81 mg PO DAILY [facility] Atorvastatin Calcium (Lipitor) 10 mg PO QPM [facility] Budesonide (Pulmicort) 0.5 mg INH RTBID [facility] Carboxymethylcellulose (Refresh 1% Ophth Drops) 1 drops EACHEYE PRN PRN Chlorhexidine Gluconate (Peridex) 15 ml PO Q7D [facility] Diphenhydramine HCl (Benadryl) 25 mg PO Q6HR PRN Docusate Sodium (Colace 100mg Capsule) 100 mg PO BID PRN Docusate Sodium (Colace 250mg Capsule) 250 - 500 mg PO DAILY [facility] Enoxaparin Sodium (Lovenox) 40 mg SUBQ HS [facility] Famotidine (Pepcid) 20 mg PO BID [facility] Formoterol Fumarate (Perforomist) 20 mcg INH RTBID [facility] Gabapentin (Neurontin) 1,600 mg PO BID [facility] Guaifenesin (Mucinex) 600 mg PO TID [facility] Heparin Sodium (Beef Lung) 30 - 50 unit IVP PRN PRN Hydroxyzine Pamoate (Vistaril) 25 mg PO TID PRN Meropenem 1 gm/ Sodium (Chloride) 100 mls @ 200 mls/hr IV Q8HR [facility] Daptomycin 708 mg/ Sodium (Chloride) 114.2 mls @ 200 mls/hr IV Q24H [facility] Ketorolac Tromethamine (Toradol Inj (15mg)) 30 mg IVP Q6HR PRN Lactobacillus Rhamnosus (Culturelle) 1 cap PO DAILY [facility] Levetiracetam (Keppra) 500 mg PO BID [facility] Lidocaine (Lidoderm Patch) 2 patch TOP DAILY PRN Lorazepam (Ativan) 1 mg PO Q6H PRN Magnesium Oxide (Mag Ox) 400 mg PO DAILYWM [facility] Midodrine 10 mg PO TID PRN Montelukast Sodium (Singulair) 10 mg PO QPM [facility] Morphine Sulfate (Morphine (Carpuject) 2 mg IVP Q2HR PRN Naloxone HCl (Narcan) 2 mg IVP PRN PRN Nystatin (Mycostatin) 5 ml PO QID [facility] Ondansetron HCl (Zofran Odt) 4 mg TL Q6HR PRN Oxycodone HCl (Roxicodone) 10 mg PO Q4HR PRN Oxycodone HCl (Oxycontin) 10 mg PO BID [facility] Melatonin 3 Mg 1 each PO QPM PRN Polyethylene Glycol (Miralax) 17 gm PO DAILY [facility] Polyethylene Glycol (Miralax) 17 gm PO DAILY PRN Prochlorperazine Edisylate (Compazine Inj) 10 mg IVP Q6HR PRN Saccharomyces Boulardii (Florastor) [facility] [place] Senna (Senokot) 8.6 mg PO BID PRN Senna (Senokot) 8.6 - 17.2 mg PO DAILY [facility] Sodium Bicarbonate (Sodium Bicarbonate) 650 mg PO BID [facility] Spironolactone (Aldactone) 25 mg PO DAILY [facility] Tamsulosin HCl (Flomax) 0.4 mg PO DAILY [facility] HOME meds: Lorazepam [Ativan] 1 mg PO Q8HR PRN 09/23/15 Tamsulosin [Flomax] 0.4 mg PO DAILY 06/29/16 Oxycodone HCl 10 - 20 mg PO Q4HR PRN MDD 8 tabs 07/26/17 Lidocaine Ointment 5% [Xylocaine Ointment 5%] 1 appful TOP PRN PRN 08/20/17 Potassium Chloride [K-Dur] 40 meq PO BID 08/30/17 Gabapentin [Neurontin] 1,600 mg PO BID 09/27/17 Albuterol Sulf [Ventolin Hfa Inhaler] 2 puffs INH Q4HR PRN 05/09/18 Melatonin 3 - 6 mg PO QPM PRN 05/09/18 Vitamin B Complex/Folic Acid [Vitamin B-100 Complex Tablet] 1 tab PO DAILY 05/09/18 Nystatin 5 ml PO QID 10/04/18 diphenhydrAMINE [Benadryl] 25 mg PO Q6HR PRN 10/04/18 Sennosides/Docusate Sodium [Docusate Sodium-Senna Tablet] 1 tab PO BID PRN 11/13/18 Chlorhexidine Gluconate [Peridex] 15 ml PO DAILY 12/18/18 Esomeprazole Magnesium [Nexium] 20 mg PO DAILY 12/18/18 Magnesium 250 mg PO DAILY 12/18/18 Oxycodone HCl [Oxycontin] 20 mg PO TID 12/18/18 Polyethylene Glycol 3350 [Miralax] 17 gm PO DAILY PRN 12/18/18 Torsemide 20 mg PO BID 12/19/18 Budesonide/Formoterol Fumarate [Symbicort 160-4.5 Mcg Inhaler] 2 puffs IH BID 12/20/18 hydrOXYzine PAMOATE [Vistaril] 25 mg PO TID PRN 12/20/18 Objective - Vital Signs/Intake & Output Reviewed Vital Signs: Yes Vital Signs: Vital Signs x48h Temp Pulse Pulse Resp BP BP Pulse Ox 12/28/18 08:00 36.4 C L 82 18 129/82 H 94 12/28/18 07:20 80 18 12/28/18 04:16 82 128/83 H 91 L 12/28/18 01:05 36.4 C L 77 14 137/74 H 95 Intake & Output: Intake & Output 12/25/18 12/26/18 12/27/18 12/28/18 23:59 23:59 23:59 23:59 Intake Total 2620 1750.2 3834.2 400 Output Total 1250 1150 5085 2750 Balance 1370 600.2 -1250.8 -2350 - Objective General Appearance: positive: No acute distress, Alert Eyes Bilateral: positive: PERRL Eyes: OU Conjunctivae pale ENT: positive: Pharynx nml, Dry mucous membranes Neck: positive: Thyroid nml, No JVD, Stiff neck Respiratory: positive: Chest non-tender, No respiratory distress Cardiovascular: positive: Regular rate & rhythm, No gallop, Systolic murmur, Decreased pulse(s) Peripheral Pulses: 1+ Radial (R), 1+ Radial (L) Abdomen: positive: Non-tender, Nml bowel sounds, Hepatomegaly Back: positive: Nml inspection Skin: positive: No rash, Warm, Dry Extremities: positive: Pedal edema, Calf tenderness, Other (wound vac to anterior right foot- intact) Neurologic/Psychiatric: positive: Oriented x3, CN's nml (2-12), Motor nml, Weakness, Sensory loss, Depressed mood/affect Reflexes: Bicep (R): 3+, Bicep (L): 3+ - Lab Results Fish Bones: 12/27/18 05:10 12/27/18 05:10 ABX Reporting Has patient been on IV antibiotics over the past 48 hours?: Yes Assessment/Plan - Problem List (1) Right foot ulcer Impression: - Medically cleared for discharge, pending set up with [facility] to ensure continued IV treatment verses an accepting facility - Discharged from [facility] on 12/17/2018 with orders to continue; Daptomycin IV 700 mg Q24 hours for 25 days ~ 01/11 Ertapenem IV 1 G Q24H for 16 days ~ 01/02 - Was getting IV infusion through the [facility] - Discharge is on hold pending ID through [facility] to re-write for IV infusions to ensure the [facility] can administer Plan: Continue to monitor, continue IV treatment, encourage leg elevation when in the chair (2) Pneumonia Impression: - Temp max 39.1 on 12/21 - Infiltrates on chest x-ray - Chest CT notes NEW rib fractures to the anterior left 5th rib, 6th posterior - Continues on Daptomycin, and Ertapenem for his leg ulcers - Chronic sputum, no worse - Intermittently uses oxygen - Diminished with crackles on exam Plan: Continue to monitor, consider at walking oxygen test upon discharge, de- sat test while sleeping has been ordered for tonight Qualifiers: Pneumonia type: due to unspecified organism Laterality: right Lung location: lower lobe of lung Qualified Code(s): J18.1 - Lobar pneumonia, unspecified organism (3) Recurrent seizures Impression: - The patient suffered a witnessed seizure while in the [facility] - He was then postictal, but now back to baseline - He was unclear if he was taking his Keppra or not, he states that he "assumes they are giving it to me" - Lives at home and has caregivers - No reported seizures from nursing staff Plan: Continue to monitor, continue Keppra (4) Episode of syncope Impression: - The patient had a seizure in the [facility] clinic followed by occlusion of his airway, hypoxia and brief loss of pulses - Airway was reopened, oxygen applied and pulses returned - Inconclusive syncopal work was completed on admission, now ordered a head MRI to rule out other causes, or new mets Plan: Continue to monitor for seizures, await follow up MRI results Qualifiers: Syncope type: unspecified Qualified Code(s): R55 - Syncope and collapse (5) COPD (chronic obstructive pulmonary disease) with acute bronchitis Impression: - Patient continues to smoke at home - Life long, >40 years - Now with metastatic lung cancer - Takes Symbicort, atrovent at home - Continues on duo-nebs as needed here Plan: Continue to monitor, oxygen walking test upon discharge (6) PVD (peripheral vascular disease) Impression: - Recurrent wounds, [facility] clinic follows - Recently at [facility] and discharged with instructions to continue IV Ertapenem through 01/02 Plan: Continue to support, IV antibiotics, maintain wound VAC per [facility] (7) Chronic pain syndrome Impression: - Takes oxycodone, OxyContin and gabapentin for this - No radiation of pain - Worse when attempting to walk - Drinks 4-6 24 oz. Hurricanes per day - States that he takes 3200 mg of gabapentin per day - Increased from BID to TID gabapentin Plan: Continue oxycodone, resume long acting oxycontin, monitor for improvement (8) Brain cancer Impression: - 2 brain mets from lung CA - Status post craniotomy in 2017 - Consequently has recurrent seizures of which he takes Keppra for Plan: Continue Keppra, monitor for seizures (9) Cor pulmonale Impression: - As per the patient's last echo, Moderate RV dilation with normal systolic function - Enlarged RA- severe - RVSP at rest was 52 mmHg - Torsemide listed on pharmacy list, but he was not discharged on this from [facility] on 12/17/2018 - Start Spironolactone in the AM Plan: Monitor for SOB, await de-sat night study (10) Metastatic non-small cell lung cancer Impression: - Has a port a cath over the SVC since his chemo treatment - Status post chemo - No reports of bloody sputum - May require O2 for home use based on this diagnosis and Cor pulmonale Plan: Continue to monitor, give oxygen (11) Alcohol abuse Impression: - [facility] notes that he was treated for ETOH withdrawal at the beginning of his stay on 11/30/2018 - Patient admits to continued use - Also with 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
[2018-12-28] MEDS ORDERED: SPIRONOLACTONE 25 MG TABLET PO SCH (09:00)
[2018-12-28] MEDS: levETIRAcetam 250 MG TABLET PO SCH (09:15)
[2018-12-28] MEDS: DOCUSATE SODIUM 250 MG CAPSULE PO SCH (09:16)
[2018-12-28] MEDS: FAMOTIDINE 20 MG TABLET PO SCH (09:16)
[2018-12-28] MEDS: TAMSULOSIN 0.4 MG CAPSULE PO SCH (09:16)
[2018-12-28] MEDS: SODIUM BICARBONATE 650 MG TABLET PO SCH (09:17)
[2018-12-28] MEDS: LACTOBACILLUS RHAMNOSUS GG CAPSULE PO SCH (09:17)
[2018-12-28] MEDS: GABAPENTIN 400 MG CAPSULE PO SCH (09:17)
[2018-12-28] MEDS: oxyCODONE ER 10 MG TABLET PO SCH (09:18)
[2018-12-28] MEDS: NYSTATIN 500000 UNITS/5 ML UDC PO SCH ×2 (09:43→13:51)
[2018-12-28] MEDS: SODIUM CHLORIDE FLUSH 0.9% 10 ML SYRINGE IVP PRN ×2 (13:09→15:06)
--- NOTE | 2018-12-28 13:15 | Discharge Plan ---
Discharge Plan Problem Reviewed?: Yes Disposition: Home, Self Care Condition: Stable Prescriptions: DAPTOmycin [Cubicin] 700 mg IV Q24H #11 vial Ertapenem [INVanz] 1 gm IV Q24H #5 vial Montelukast [Singulair] 10 mg PO QPM #30 tablet Spironolactone [Aldactone] 25 mg PO DAILY #30 tablet Diet: Regular Activity Restrictions: Activity as Tolerated Shower Restrictions: No Instruction Topics: Spironolactone tablets Health Concerns: Recurrent soft tissue infection of bilateral lower extremities Tobacco and alcohol use Seizures Lung cancer with brain mets Plan of Treatment: Continue to make daily trips to the [facility] clinic for IV infusions, one will end on 01/02, and the other on 01/11 for full treatment of your right foot wound and to treat pneumonia. Take your Keppra as scheduled to prevent seizures. Please start taking a medication called Spironolactone to treat swelling in your belly and legs, this will also help preserve your heart function. I have ordered a walking oxygen test to provide you with home oxygen- pending. Given your Cor Pulmonale (a type of right sided heart failure with high pressures in the lungs/heart), AND your lung cancer history. Please establish care with a regular provider and have a clinic visit within one week. Care Goals: Avoid hospital stays Keep free of infection, especially with your right foot Take your medications as directed Attend daily [facility] infusion appointments Assessment: You were admitted after having a witnessed seizure while in the [facility] clinic, that turned into a blockage of the airway and a brief loss of pulse. CPR was performed on you and you sustained 2 broken ribs (right 6th rib, left 5th rib). Since being in the hospital, there have been no other seizures noted by you or by nursing staff. You were continued on daptomycin and Ertapenem, which is what [facility] recommended when they discharged for full treatment of your right foot wound. You have been seen by the wound nurse for regular wound vac changes. A head MRI was completed to evaulate for any other causes for seizures. Yue art will be able to have these images which show NO new intracranial mass and no new strokes. To ease your breathing, and reduce swelling in your belly and legs, a new medication called Spironolactone was started. Please do not take any Potassium when taking this medication. Follow-Up Care: [facility] - Medical No Smoking: If you smoke, Please STOP! Call for help.
[2018-12-28] MEDS ORDERED: DAPTOMYCIN IV SCH (14:00)
[2018-12-28] MEDS ORDERED: SODIUM CHLORIDE 0.9% IV SCH (14:00)
[2018-12-28 14:37] VITALS: BP 88/68
--- NOTE | 2018-12-28 15:54 | DISCHARGE SUMMARY ---
Discharge Summary Admit Date: 12/19/18 Discharge Date: 12/28/18 Discharging Provider: RAMAN Henriquez Primary Care Provider: Ron Vazquez Code Status: Attempt Resuscitation Condition at Discharge: Stable Discharge Disposition: 01 Home, Self Care - DIAGNOSES Admission Diagnoses: Seizure disorder Pulmonary contusion Cardiac arrest Hypotension COPD without exacerbation Respiratory distress Lung cancer metastatic to brain Peripheral vascular disease Ischemic ulcer of foot Oropharyngeal candidiasis Chronic pain syndrome Tobacco dependence Coronary artery disease Medical non-compliance Discharge Diagnoses with Status of Each Condition: Seizure disorder Pulmonary contusion Cardiac arrest Hypotension COPD without exacerbation Respiratory distress Lung cancer metastatic to brain Peripheral vascular disease Ischemic ulcer of foot Oropharyngeal candidiasis Chronic pain syndrome Tobacco dependence Coronary artery disease Medical non-compliance Pneumonia Episode of syncope Brain cancer Cor Pulmonale Alcohol abuse - HPI History of Present Illness: HPI per Dr. Granados: This is a 58-year-old male who looks older than what he appears with a complex medical history to consist of history of metastatic adenocarcinoma of the lung with mets to the brain. Past medical history signif icant for hypertension, coronary disease, peripheral vascular disease, COPD, seizure disorder, GERD, diverticulits, chronic constipation, BPH, CVL, CBP, Opiate dependent on oxycodone, ischemic peripheral disease nonhealing ulcer to the right foot, anemia, chronic current every day smoker/tobacco dependence, medical noncompliance. Previously seeing Dr. Jodee Castillo as primary hem/onc, now sees a Dr. Arellano at [facility]. He has had brain metastases since 2014 had a resection in 2018. Had a recur rence in his right long and has been off of chemotherapy since March 2018. His surveillance CT scans of the lung mass has been reportedly improving per his oncologist. Has a history of candidiasis in his throat. Also has a history of anemia, thrombocytopenia and is on antibiotics for an infection in his left foot. He has had multiple infections lately per oncology, has reported shortness of breath on exertion to oncology as well. He had a seizure in the [facility] clinic today followed by occlusion of his airway, hypoxia and brief loss of pulses. Airway was reopened, oxygen applied and pulses returned. He was then postictal and is now back to baseline. Has had seizures in the past. He is unclear if he is taking his Keppra or not, he states that he "assumes they are giving it to me". Lives at home and has caregivers. On Exam patient was c/o severe back pain, was given IV keppra, ativan, dilauid, as well as fluids in ED. Patient did sustain R-rib fractures as a result of aggressive CPR, non-contrast CT ordered. EKG shows no ST-T wave abnormalities, Labs were unremarkbale with the exception of co2 16, was SOB after CPR sec to pulmonary contusion and or edema formation with a BNP 101, trop neg. VSS initially showed hypotension, placed on NRB 10L at 98% o2 sat, BP went from 90/5 1 to 113/75, NT/NT. Patient was admitted and d/c'ed on 05/03/18 here for COPD exacerbation and was a DNR back then but has reverted that and sees Palliative Kari Yanez. Still continues to smoke despite lung adenoCA with mets to brain. CT head shows no brain lesions surprisingly with no lytic lesions to calvarium. - HOSPITAL COURSE Hospital Course: - Problem List (1) Right foot ulcer Impression: - Medically cleared for discharge, pending set up with [facility] to ensure continued IV treatment verses an accepting facility - Discharged from [facility] on 12/17/2018 with orders to continue; Daptomycin IV 700 mg Q24 hours for 25 days ~ 01/11 Ertapenem IV 1 G Q24H for 16 days ~ 01/02 - Was getting IV infusion through the [facility] - Discharge is on hold pending ID through [facility] to re-write for IV infusions to ensure the [facility] can administer Plan: Continue to monitor, continue IV treatment, encourage leg elevation when in the chair (2) Pneumonia Impression: - Temp max 39.1 on 12/21 - Infiltrates on chest x-ray - Chest CT notes NEW rib fractures to the anterior left 5th rib, 6th posterior - Continues on Daptomycin, and Ertapenem for his leg ulcers - Chronic sputum, no worse - Intermittently uses oxygen - Diminished with crackles on exam Plan: Continue to monitor, consider at walking oxygen test upon discharge, de- sat test while sleeping has been ordered for tonight Qualifiers: Pneumonia type: due to unspecified organism Laterality: right Lung location: lower lobe of lung Qualified Code(s): J18.1 - Lobar pneumonia, unspecified organism (3) Recurrent seizures Impression: - The patient suffered a witnessed seizure while in the [facility] - He was then postictal, but now back to baseline - He was unclear if he was taking his Keppra or not, he states that he "assumes they are giving it to me" - Lives at home and has caregivers - No reported seizures from nursing staff Plan: Continue to monitor, continue Keppra (4) Episode of syncope Impression: - The patient had a seizure in the [facility] clinic followed by occlusion of his airway, hypoxia and brief loss of pulses - Airway was reopened, oxygen applied and pulses returned - Inconclusive syncopal work was completed on admission, now ordered a head MRI to rule out other causes, or new mets Plan: Continue to monitor for seizures, await follow up MRI results Qualifiers: Syncope type: unspecified Qualified Code(s): R55 - Syncope and collapse (5) COPD (chronic obstructive pulmonary disease) with acute bronchitis Impression: - Patient continues to smoke at home - Life long, >40 years - Now with metastatic lung cancer - Takes Symbicort, atrovent at home - Continues on duo-nebs as needed here Plan: Continue to monitor, oxygen walking test upon discharge (6) PVD (peripheral vascular disease) Impression: - Recurrent wounds, [facility] clinic follows - Recently at [facility] and discharged with instructions to continue IV Ertapenem through 01/02 Plan: Continue to support, IV antibiotics, maintain wound VAC per [facility] (7) Chronic pain syndrome Impression: - Takes oxycodone, OxyContin and gabapentin for this - No radiation of pain - Worse when attempting to walk - Drinks 4-6 24 oz. Hurricanes per day - States that he takes 3200 mg of gabapentin per day - Increased from BID to TID gabapentin Plan: Continue oxycodone, resume long acting oxycontin, monitor for improvement (8) Brain cancer Impression: - 2 brain mets from lung CA - Status post craniotomy in 2017 - Consequently has recurrent seizures of which he takes Keppra for Plan: Continue Keppra, monitor for seizures (9) Cor pulmonale Impression: - As per the patient's last echo, Moderate RV dilation with normal systolic function - Enlarged RA- severe - RVSP at rest was 52 mmHg - Torsemide listed on pharmacy list, but he was not discharged on this from [facility] on 12/17/2018 - Start Spironolactone in the AM Plan: Monitor for SOB, await de-sat night study (10) Metastatic non-small cell lung cancer Impression: - Has a port a cath over the SVC since his chemo treatment - Status post chemo - No reports of bloody sputum - May require O2 for home use based on this diagnosis and Cor pulmonale Plan: Continue to monitor, give oxygen (11) Alcohol abuse Impression: - Pablo notes that he was treated for ETOH withdrawal at the beginning of his stay on 11/30/2018 - Patient admits to continued use - Also with 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 - ALLERGIES Allergies/Adverse Reactions: Allergies Allergy/AdvReac Type Severity Reaction Status Date / Time BRONWYN Inhibitors Allergy Emesis Verified 12/19/18 16:42 amoxicillin [From Augmentin] Allergy Emesis Verified 12/19/18 16:42 clavulanic acid Allergy Emesis Verified 12/19/18 16:42 [From Augmentin] lisinopril Allergy "THROAT Verified 12/19/18 16:42 SWELLING" - MEDICATIONS Home Medications: Ambulatory Orders Medication Instructions Recorded Confirmed Lorazepam [Ativan] 1 mg PO Q8HR PRN 09/23/15 12/20/18 Tamsulosin [Flomax] 0.4 mg PO DAILY 06/29/16 12/20/18 Oxycodone HCl 10 - 20 mg PO Q4HR PRN MDD 8 tabs 07/26/17 12/20/18 Lidocaine Ointment 5% [Xylocaine 1 appful TOP PRN PRN 08/20/17 12/20/18 Ointment 5%] Gabapentin [Neurontin] 1,600 mg PO BID 09/27/17 12/20/18 Levetiracetam [Keppra] 500 mg PO BID #30 tablet 11/23/17 12/20/18 Ondansetron Odt [Zofran Odt] 4 mg TL Q6H PRN #15 tablet 03/19/18 12/20/18 Albuterol Sulf [Ventolin Hfa 2 puffs INH Q4HR PRN 05/09/18 12/20/18 Inhaler] Melatonin 3 - 6 mg PO QPM PRN 05/09/18 12/20/18 Vitamin B Complex/Folic Acid 1 tab PO DAILY 05/09/18 12/20/18 [Vitamin B-100 Complex Tablet] Nystatin 5 ml PO QID 10/04/18 12/20/18 diphenhydrAMINE [Benadryl] 25 mg PO Q6HR PRN 10/04/18 12/20/18 Sennosides/Docusate Sodium 1 tab PO BID PRN 11/13/18 12/20/18 [Docusate Sodium-Senna Tablet] Chlorhexidine Gluconate [Peridex] 15 ml PO DAILY 12/18/18 12/20/18 Esomeprazole Magnesium [Nexium] 20 mg PO DAILY 12/18/18 12/20/18 Magnesium 250 mg PO DAILY 12/18/18 12/20/18 Oxycodone HCl [Oxycontin] 20 mg PO TID 12/18/18 12/20/18 Polyethylene Glycol 3350 [Miralax] 17 gm PO DAILY PRN 12/18/18 12/20/18 Budesonide/Formoterol Fumarate 2 puffs IH BID 12/20/18 12/20/18 [Symbicort 160-4.5 Mcg Inhaler] hydrOXYzine PAMOATE [Vistaril] 25 mg PO TID PRN 12/20/18 12/20/18 DAPTOmycin [Cubicin] 700 mg IV Q24H #11 vial 12/28/18 Ertapenem [INVanz] 1 gm IV Q24H #5 vial 12/28/18 Montelukast [Singulair] 10 mg PO QPM #30 tablet 12/28/18 Spironolactone [Aldactone] 25 mg PO DAILY #30 tablet 12/28/18 - PHYSICAL EXAM AT DISCHARGE General Appearance: positive: No acute distress, Alert Eyes Bilateral: positive: PERRL ENT: positive: Pharynx nml, Dry mucous membranes Neck: positive: No JVD, Trachea midline Respiratory: positive: Chest non-tender, No respiratory distress, Other (dimin ished) Cardiovascular: positive: No gallop, Irregularly irregular, Systolic murmur, Decreased pulse(s) Peripheral Pulses: positive: 1+ Abdomen: positive: Non-tender, Guarding, Hepatomegaly, Other (obese, soft) Back: positive: Nml inspection Skin: positive: No rash, Warm, Dry, Pallor Extremities: positive: Pedal edema, Joint swelling, Other (pitting BLEs, wound, poor pulses- chronic) Neurologic/Psychiatric: positive: Oriented x3, CN's nml (2-12), Weakness, Sensory loss, Slurred/abnml speech, Depressed mood/affect, Other (baseline early dementia) Reflexes: Bicep (R): 2+, Bicep (L): 2+ - LABS Result Diagrams: 12/27/18 05:10 12/27/18 05:10 - DIAGNOSTIC IMAGING Diagnostic Imaging Results: Final report reviewed Diagnostic Imaging Results Comments: EXAM: CHEST RADIOGRAPHY EXAM DATE: 12/21/2018 03:17 AM IMPRESSION: 1. Cardiomegaly and pulmonary vascular congestion with probable interstitial edema and small pleural effusions. 2. Mild bibasilar atelectasis or infiltrate. EXAM: MRI BRAIN WITHOUT CONTRAST EXAM DATE: 12/27/2018 12:18 PM. IMPRESSION: 1. Interval decrease in size of the surgical resection site. 2. Stable edema adjacent to the surgical resection site. 3. No new intracranial mass is identified by noncontrast MRI. 4. FLAIR hyperintensities in the cerebral hemisphere white matter could be the sequela of small vessel ischemic change or could be related to prior treatment for intracranial metastatic disease. 5. Generalized cerebral and cerebellar atrophy is seen. This might well be the sequelae of prior treatment. 6. No acute or subacute CVA. - SEPSIS Current Stage of Sepsis: Ruled out - TIME SPENT Time Spent in Discharge (Minutes): 45
== END 2018-12-28 15:25 | disposition home or self-care (01) | DRG 981 ==
LOC: ED 16:34 → OBS 20:23 → OBSVTOIN 12-21 10:30 → MS2 12-21 16:32
PROVIDERS: ADMIT Family Medicine; ATTEND Nurse Practitioner
PROC: 0KDV0ZZ Extraction of Right Foot Muscle, Open Approach (ICD-10-PCS; principal; 2018-12-27)
DX: J18.1 Lobar pneumonia, unspecified organism (principal); I46.9 Cardiac arrest, cause unspecified; Q04.3 Other reduction deformities of brain; S22.31XA Fracture of one rib, right side, initial encounter for closed fracture; M96.89 Other intraoperative and postprocedural complications and disorders of the musculoskeletal system; C34.91 Malignant neoplasm of unspecified part of right bronchus or lung; C79.31 Secondary malignant neoplasm of brain; B37.0 Candidal stomatitis; F11.20 Opioid dependence, uncomplicated; S27.321A Contusion of lung, unilateral, initial encounter; J95.88 Other intraoperative complications of respiratory system, not elsewhere classified; I42.6 Alcoholic cardiomyopathy; L97.515 Non-pressure chronic ulcer of other part of right foot with muscle involvement without evidence of necrosis; L03.115 Cellulitis of right lower limb; J44.0 Chronic obstructive pulmonary disease with (acute) lower respiratory infection; G40.909 Epilepsy, unspecified, not intractable, without status epilepticus; J20.9 Acute bronchitis, unspecified; R55 Syncope and collapse; I95.9 Hypotension, unspecified; R06.03 Acute respiratory distress; R09.02 Hypoxemia; I73.9 Peripheral vascular disease, unspecified; G62.9 Polyneuropathy, unspecified; G89.29 Other chronic pain; M54.9 Dorsalgia, unspecified; I25.10 Atherosclerotic heart disease of native coronary artery without angina pectoris; I27.81 Cor pulmonale (chronic); F10.10 Alcohol abuse, uncomplicated; I10 Essential (primary) hypertension; K21.9 Gastro-esophageal reflux disease without esophagitis; K59.09 Other constipation; D64.9 Anemia, unspecified; D69.6 Thrombocytopenia, unspecified; F17.200 Nicotine dependence, unspecified, uncomplicated; F41.9 Anxiety disorder, unspecified; Y84.8 Other medical procedures as the cause of abnormal reaction of the patient, or of later complication, without mention of misadventure at the time of the procedure; Y92.238 Other place in hospital as the place of occurrence of the external cause; T42.6X6A Underdosing of other antiepileptic and sedative-hypnotic drugs, initial encounter; Y92.009 Unspecified place in unspecified non-institutional (private) residence as the place of occurrence of the external cause; N40.1 Benign prostatic hyperplasia with lower urinary tract symptoms; N39.498 Other specified urinary incontinence; R35.0 Frequency of micturition; R33.9 Retention of urine, unspecified; R35.1 Nocturia; R39.15 Urgency of urination; K59.00 Constipation, unspecified; R19.7 Diarrhea, unspecified; H54.7 Unspecified visual loss; H26.9 Unspecified cataract; H91.90 Unspecified hearing loss, unspecified ear; Z51.5 Encounter for palliative care; Z79.51 Long term (current) use of inhaled steroids; Z92.21 Personal history of antineoplastic chemotherapy; Z92.3 Personal history of irradiation; Z87.01 Personal history of pneumonia (recurrent)
CPT/HCPCS: 36415; 70450; 70551; 71045; 71250; 80048; 80053; 80061; 81001; 81003; 83605; 83690; 83735; 83880; 84443; 84484; 85025; 87040; 87045; 87046; 87493; 92950; 93005; 93306; 94640; 94761; 96361; 96365; 96366; 96367; 96375; 96376; 97110; 97116; 97161; 97163; 97166; 97530; 97535; 99232; 99284; 99285; A9270; G0378; J0878; J1170; J2060; J2185; J7040; J7120; J7626; J8499; Q0162; 83721; 87086

== ENCOUNTER 2019-01-08 13:43 | Outpatient (CLI) | payer MEDICAID ==
[2019-01-08 14:15] LABS: CALCIUM 8.7 mg/dL (8.5-10.3)
== END 2019-01-08 13:44 | disposition home or self-care (01) ==
LOC: LAB 13:43
PROVIDERS: ATTEND Nurse Practitioner Adult Health
DX: Z79.899 Other long term (current) drug therapy (principal)
CPT/HCPCS: 36415; 80048

== ENCOUNTER 2019-01-08 14:15 | Outpatient (CLI) | payer MEDICAID ==
--- NOTE | 2019-01-08 16:24 | CONSULTATION NOTE ---
Palliative Care Follow Up - Referral Referring Provider: Dr Vazquez Time of Visit: Sun01/08/2019. 14:15 - 14:45 Referral setting: [facility] Referral Reason: Pedal edema - Information Sources Records reviewed: Previous records reviewed History/Review of Systems obtained from: Patient, Nursing Exam limitations: No limitations - History of Present Illness Update Brief HPI Update: 58-year-old man with adenocarcinoma the lung originally diagnosed in 2013. He has known brain mets, S/P [facility] in 02/2017. He had originally received radiation therapy, in 2018 had recurrence of disease in his right lung, and has received pembrolizumab 8 cycles total finishing 03/2018. He has been on surveillance since this time, with seemingly stable disease. 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 Today patient is at [facility] for scheduled wound care of feet which he receives twice weekly. He reports doing "all right" all things considered. He was recently at [facility] 11/30/18 - 12/17/18 for R foot blister, then became a wound which developed MRSA, staph epidermidis, Enterobacter. He was placed on wound vac. When they were not able to place him in SNF he was discharged home, where he has very little social support. His primary STAFF CONSULTANT provider has been adjusting his torsemide, potassium, and opioids since his discharge home. The plan for today is that patient's BMP would be checked for potassium level and kidney function, and further adjustments made depending on results. Patient reports that he stopped his potassium (20meq) yesterday, and didn't take his torsemide (20mg) this morning. He continues to take the spironolactone 25mg. Since he's been taking it he says he feels better, and his BP has regulated, he's no longer hypotensive. BMP reveals potassium is in normal range, GFR is 77. Palliative care provider instructed patient to continue to take torsemide 20mg daily and potassium 20meq daily, starting today (Sun) until Sunday, when he will be seen by the palliative care provider at his wound appointment at the [facility]. Patient agrees to this plan. He has an adequate supply of torsemide and potassium tablets at home. Social History - Living Situation Living arrangement: At home Living Situation: Other ("Roommate" lives in apartment in [facility]; has JAMES hours. Family unavailable to provide support, son works, daughter and patient are currently estranged) Medications/Allergies - Medications Home Medications: Ambulatory Orders Medication Instructions Recorded Confirmed Lorazepam [Ativan] 1 mg PO Q8HR PRN 09/23/15 12/20/18 Tamsulosin [Flomax] 0.4 mg PO DAILY 06/29/16 12/20/18 Oxycodone HCl 10 - 20 mg PO Q4HR PRN MDD 8 tabs 07/26/17 12/20/18 Lidocaine Ointment 5% [Xylocaine 1 appful TOP PRN PRN 08/20/17 12/20/18 Ointment 5%] Gabapentin [Neurontin] 1,600 mg PO BID 09/27/17 12/20/18 Levetiracetam [Keppra] 500 mg PO BID #30 tablet 11/23/17 12/20/18 Ondansetron Odt [Zofran Odt] 4 mg TL Q6H PRN #15 tablet 03/19/18 12/20/18 Albuterol Sulf [Ventolin Hfa 2 puffs INH Q4HR PRN 05/09/18 12/20/18 Inhaler] Melatonin 3 - 6 mg PO QPM PRN 05/09/18 12/20/18 Vitamin B Complex/Folic Acid 1 tab PO DAILY 05/09/18 12/20/18 [Vitamin B-100 Complex Tablet] Nystatin 5 ml PO QID 10/04/18 12/20/18 diphenhydrAMINE [Benadryl] 25 mg PO Q6HR PRN 10/04/18 12/20/18 Sennosides/Docusate Sodium 1 tab PO BID PRN 11/13/18 12/20/18 [Docusate Sodium-Senna Tablet] Chlorhexidine Gluconate [Peridex] 15 ml PO DAILY 12/18/18 12/20/18 Esomeprazole Magnesium [Nexium] 20 mg PO DAILY 12/18/18 12/20/18 Magnesium 250 mg PO DAILY 12/18/18 12/20/18 Oxycodone HCl [Oxycontin] 20 mg PO TID 12/18/18 12/20/18 Polyethylene Glycol 3350 [Miralax] 17 gm PO DAILY PRN 12/18/18 12/20/18 Budesonide/Formoterol Fumarate 2 puffs IH BID 12/20/18 12/20/18 [Symbicort 160-4.5 Mcg Inhaler] hydrOXYzine PAMOATE [Vistaril] 25 mg PO TID PRN 12/20/18 12/20/18 DAPTOmycin [Cubicin] 700 mg IV Q24H #11 vial 12/28/18 Ertapenem [INVanz] 1 gm IV Q24H #5 vial 12/28/18 Montelukast [Singulair] 10 mg PO QPM #30 tablet 12/28/18 Spironolactone [Aldactone] 25 mg PO DAILY #30 tablet 12/28/18 - Allergies Allergies/Adverse Reactions: Allergies Allergy/AdvReac Type Severity Reaction Status Date / Time BRONWYN Inhibitors Allergy Emesis Verified 12/19/18 16:42 amoxicillin [From Augmentin] Allergy Emesis Verified 12/19/18 16:42 clavulanic acid Allergy Emesis Verified 12/19/18 16:42 [From Augmentin] lisinopril Allergy "THROAT Verified 12/19/18 16:42 SWELLING" Review of Systems - Constitutional Constitutional: reports: Fatigue - Eyes Eyes: reports: Vision loss (severe cataracts) - Ears, Nose & Throat Ears, Nose & Throat: reports: Hearing loss (mild), Dental decay - Cardiovascular Cardiovascular: reports: Decr. exercise tolerance - Respiratory Respiratory: reports: SOB at rest, SOB with exertion - Gastrointestinal Gastrointestinal: reports: Abdominal distention, Constipation, Diarrhea (alternating with constipation) - Genitourinary Genitourinary: reports: Frequency - Musculoskeletal Musculoskeletal: reports: Back pain, Muscle aches, Stiffness, Assistive devices (using wheelchair), Transfer issues - Integumentary Integumentary: reports: Dryness - Neurological Neurological: reports: General weakness, Memory problems - Psychiatric Psychiatric: reports: Depression, Anxiety - Hematologic/Lymphatic Hematologic/Lymphatic: reports: Recurrent infections Physical Exam - Vital Signs Temperature: 96.7 F Pulse Rate: 103 (chronically tachycardic) O2 Saturation: 86 (room air) Blood Pressure: 118/70 - Physical Exam General Appearance: positive: No acute distress Eyes Bilateral: positive: Normal inspection ENT: positive: No signs of dehydration Neck: positive: Trachea midline Cardiovascular: positive: No murmur, Tachycardia Respiratory: positive: No respiratory distress, Diminished throughout. negative: Wheezes, Rales, Rhonchi Abdomen: positive: Distended Skin: positive: Pallor, Dryness, Wound (L toe; R lateral foot) Extremities: positive: Pedal edema (2-3+) Neurologic/Psychiatric: positive: Oriented x3, Flat affect Palliative Care - POLST Patient has POLST: No POLST Status: Full Code Performance Status: functional decline limited ambulatory capability due to R foot wound and boot that was provided increased edema and pain also affects ambulation R rib fractures resolving. Results - Lab Results Lab results reviewed: Yes Lab and Imaging Results: Labs 01/01/19 Labs 01/08/19 Na 131 L Na 124 L K+ 4.3 norm K+ 3.8 norm Chl 97 L Chl 85 L BUN 11 norm BUN 11 norm Cr 0.9 norm Cr 1.0 norm GFR 87 L GFR 77 L Impression and Recommendations - Palliative Care Impression: 58-year-old man with multiple serious comorbidities, receiving wound care for new wound of R foot, as well as L foot. Patient has high symptom burden, poor social support, and acute on chronic pain and increased pedal edema. Palliative care will continue to provide ongoing support for pain and symptom management. Recommendations/Counseling Done: Acute on chronic pain: Related to recent R foot wound and increased pedal edema. Managed with OxyContin and oxycodone for breakthough. Patient has history of self medication with alcohol use and benzodiazepine use. R foot wound: Wound improving on twice weekly wound care at [facility]. Lower extremity edema: Still fluctuating 2-3+, red and painful. BMP drawn today, kidney function OK, Na decreased more due to fluid overload. Continue torsemide 20mg and potassium 20meq for 3 more days and palliative care provider will reevaluate. He continues on 25mg spironolactone. Time Spent: 30 minutes were spent with more than 50% of the time spent on counseling and coordination of care.
== END 2019-01-08 14:16 | disposition home or self-care (01) ==
LOC: PC 14:15
PROVIDERS: ATTEND Nurse Practitioner
DX: Z51.5 Encounter for palliative care (principal); I42.6 Alcoholic cardiomyopathy; J44.9 Chronic obstructive pulmonary disease, unspecified; G62.1 Alcoholic polyneuropathy; F10.10 Alcohol abuse, uncomplicated; I10 Essential (primary) hypertension; T50.3X6A Underdosing of electrolytic, caloric and water-balance agents, initial encounter; T50.1X6A Underdosing of loop [high-ceiling] diuretics, initial encounter; Z91.128 Patient's intentional underdosing of medication regimen for other reason; Y92.039 Unspecified place in apartment as the place of occurrence of the external cause; S90.821D Blister (nonthermal), right foot, subsequent encounter; S91.302A Unspecified open wound, left foot, initial encounter; B95.62 Methicillin resistant Staphylococcus aureus infection as the cause of diseases classified elsewhere; B96.89 Other specified bacterial agents as the cause of diseases classified elsewhere; G89.29 Other chronic pain; Z79.899 Other long term (current) drug therapy; Z79.891 Long term (current) use of opiate analgesic; Z85.118 Personal history of other malignant neoplasm of bronchus and lung; Z92.3 Personal history of irradiation; Z99.3 Dependence on wheelchair
CPT/HCPCS: 99214

== ENCOUNTER 2019-01-10 14:15 | Outpatient (CLI) | payer MEDICAID ==
--- NOTE | 2019-01-10 15:18 | CONSULTATION NOTE ---
Palliative Care Follow Up - Referral Referring Provider: Dr Vazquez Time of Visit: Sun01/10/2019. 14:15 - 14:30 Referral setting: [facility] Referral Reason: Edema - Information Sources History/Review of Systems obtained from: Patient, Nursing Exam limitations: No limitations - History of Present Illness Update Brief HPI Update: 58-year-old man with adenocarcinoma the lung originally diagnosed in 2013. He has known brain mets, S/P [facility] at [facility] in 02/2017. He had originally received radiation therapy, in 2018 had recurrence of disease in his right lung, and has received pembrolizumab 8 cycles total finishing 03/2018. He has been on surveillance since this time, with seemingly stable disease. 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 Today's assessment is in the [facility] whereis receiving his twice weekly wound care. Patient affirms he's continued on 20mg torsemide and 20meq potassium, along with 25mg spironolactone over the last 3 days. He reports continued discomfort and pain in R foot with difficulty walking. Lower RLE is warm and red, but nursing reports it's improved since he's been elevating it during the wound care. Patient came here via [employer] van, so leg has been dependent during the trip. He confirms elevating his leg at home, with pillows, while he's watching TV. He will do that when he gets home this afternoon. He does report pain in neck and shoulders, continues oxycontin TID and uses oxycodone 10mg 7 tablets throughout the day, for breakthrough pain. He denies SOA; lungs sounds diminished, very mild crackles R side more than left. Did confirm with patient to come one hour prior to next Sunday's [facility] visit for lab draw; palliative care will fax order to [place] lab. Social History - Living Situation Living arrangement: At home Support System: "Roommate" lives in apartment in [facility]; has JAMES hours. Family unavailable to provide support, son works, daughter and patient are currently estranged. Transport is an ongoing challenge. Medications/Allergies - Medications Home Medications: Ambulatory Orders Medication Instructions Recorded Confirmed Lorazepam [Ativan] 1 mg PO Q8HR PRN 09/23/15 01/11/19 Tamsulosin [Flomax] 0.4 mg PO DAILY 06/29/16 01/11/19 Oxycodone HCl 10 - 20 mg PO Q4HR PRN MDD 8 tabs 07/26/17 01/11/19 Lidocaine Ointment 5% [Xylocaine 1 appful TOP PRN PRN 08/20/17 01/11/19 Ointment 5%] Gabapentin [Neurontin] 1,600 mg PO BID 09/27/17 01/11/19 Levetiracetam [Keppra] 500 mg PO BID #30 tablet 11/23/17 01/11/19 Ondansetron Odt [Zofran Odt] 4 mg TL Q6H PRN #15 tablet 03/19/18 01/11/19 Albuterol Sulf [Ventolin Hfa 2 puffs INH Q4HR PRN 05/09/18 01/11/19 Inhaler] Melatonin 3 - 6 mg PO QPM PRN 05/09/18 01/11/19 Vitamin B Complex/Folic Acid 1 tab PO DAILY 05/09/18 01/11/19 [Vitamin B-100 Complex Tablet] Nystatin 5 ml PO QID 10/04/18 01/11/19 diphenhydrAMINE [Benadryl] 25 mg PO Q6HR PRN 10/04/18 01/11/19 Sennosides/Docusate Sodium 1 tab PO BID PRN 11/13/18 01/11/19 [Docusate Sodium-Senna Tablet] Chlorhexidine Gluconate [Peridex] 15 ml PO DAILY 12/18/18 01/11/19 Esomeprazole Magnesium [Nexium] 20 mg PO DAILY 12/18/18 01/11/19 Magnesium 250 mg PO DAILY 12/18/18 01/11/19 Oxycodone HCl [Oxycontin] 20 mg PO TID 12/18/18 01/11/19 Polyethylene Glycol 3350 [Miralax] 17 gm PO DAILY PRN 12/18/18 01/11/19 Budesonide/Formoterol Fumarate 2 puffs IH BID 06/28/19 07/20/19 [Symbicort 160-4.5 Mcg Inhaler] hydrOXYzine PAMOATE [Vistaril] 25 mg PO TID PRN 12/20/18 01/11/19 Montelukast [Singulair] 10 mg PO QPM #30 tablet 12/28/18 01/11/19 Spironolactone [Aldactone] 25 mg PO DAILY #30 tablet 12/28/18 01/11/19 Potassium Chloride 20 meq PO DAILY 01/11/19 01/11/19 Torsemide 20 mg PO DAILY 01/11/19 01/11/19 - Allergies Allergies/Adverse Reactions: Allergies Allergy/AdvReac Type Severity Reaction Status Date / Time BRONWYN Inhibitors Allergy Emesis Verified 12/19/18 16:42 amoxicillin [From Augmentin] Allergy Emesis Verified 12/19/18 16:42 clavulanic acid Allergy Emesis Verified 12/19/18 16:42 [From Augmentin] lisinopril Allergy "THROAT Verified 12/19/18 16:42 SWELLING" Review of Systems - Constitutional Constitutional: reports: Fatigue - Eyes Eyes: reports: Vision loss (severe cataracts) - Ears, Nose & Throat Ears, Nose & Throat: reports: Hearing loss (mild), Dental decay - Cardiovascular Cardiovascular: reports: Edema, Decr. exercise tolerance. denies: Chest pain - Respiratory Respiratory: denies: Wheezing - Gastrointestinal Gastrointestinal: denies: Constipation - Genitourinary Genitourinary: denies: Dysuria, Incontinence - Musculoskeletal Musculoskeletal: reports: Back pain (neck, shoulders), Muscle aches, Stiffness, Assistive devices (wheelchair at hospital), Transfer issues (difficulty/pain ambulating, stepping up into [facility]) - Integumentary Integumentary: reports: Dryness - Neurological Neurological: reports: General weakness, Memory problems - Psychiatric Psychiatric: reports: Depression, Anxiety - Hematologic/Lymphatic Hematologic/Lymphatic: reports: Recurrent infections Physical Exam - Vital Signs Temperature: 96.2 F Pulse Rate: 112 (chronically tachycardic) O2 Saturation: 86 (room air, denies SOA) Blood Pressure: 117/73 (wrist cuff) - Physical Exam General Appearance: positive: No acute distress Eyes Bilateral: positive: Normal inspection ENT: positive: No signs of dehydration Neck: positive: Trachea midline Cardiovascular: positive: No murmur, Tachycardia Respiratory: positive: Diminished throughout, Rales (mild, more on R than L) Abdomen: positive: Non-tender, Soft, Distended Skin: positive: Pallor, Dryness, Wound (R lateral foot; L toes) Neurologic/Psychiatric: positive: Oriented x3, Flat affect Palliative Care - POLST Patient has POLST: No POLST Status: Full Code Pain: Location (neck and shoulders; continues oxycontin and oxycodone. pain in RLE from edema, aggravated with ambulation) Tiredness/Fatigue: Moderate (4-6) Performance Status: functional decline limited ambulatory continues secondary to R foot wound and edema, significant difficulty navigating any steps (such as [employer] bus) - Palliative Care Discussion: Palliative care was notified that today's visit to [facility] will be the last time the patient will be able to use the [employer] transport service. Patient was notified of this by RN at [facility] clinic, he said he was told by the seasonal driver and by Pat of [employer] that they will continue to drive him. Results - Lab Results Lab results reviewed: Yes Lab and Imaging Results: Labs 01/01/19 Labs 01/08/19 Na 131 L Na 124 L K+ 4.3 norm K+ 3.8 norm Chl 97 L Chl 85 L BUN 11 norm BUN 11 norm Cr 0.9 norm Cr 1.0 norm GFR 87 L GFR 77 L Impression and Recommendations - Palliative Care Impression: 58-year-old man with multiple serious comorbidities, receiving ongonig outpatient wound care for new wound of R foot, as well as L foot. Patient has high symptom burden, poor social support, acute on chronic pain and pedal edema. Palliative care will continue to provide ongoing support for pain and symptom management. Recommendations/Counseling Done: Acute on chronic pain: Related to recent R foot wound and increased pedal edema. Continues on OxyContin and oxycodone for breakthough. Patient has history of self medication with alcohol use and benzodiazepine use. R foot wound: Wound improving on twice weekly wound care at [facility]. Lower extremity edema: Still fluctuating 2-3+, red and painful. Advised patient to continue current dosing on torsemide (20mg), potassium (20meq) and spironolactone (25mg). Redness and heat improved at the MAR after he elevated. Encouraged persistent elevation of RLE above head height when he is at home. Patient confirmed he will elevate R leg with pillows at home. Will redraw labs (BMP, CBC) on prior to his next [facility] appointment Advance care planning: Patient has been using [employer] transport to get to his wound care appointments. [employer] has not been feasible due to significant difficult navigating the steps. Palliative Care and [facility] had been notified [employer] will no longer transport the patient. This was discussed with patient after his visit today. However, he was told by the [employer] seasonal driver as well as Pat that they would continue. RN at [facility] is following up and will notify Palliative Care. Time Spent: 15 minutes were spent with more than 50% of the time spent on counseling and coordination of care with patient and [facility] staff.
== END 2019-01-10 14:16 | disposition home or self-care (01) ==
LOC: PC 14:15
PROVIDERS: ATTEND Nurse Practitioner
DX: Z51.5 Encounter for palliative care (principal); G89.29 Other chronic pain; S91.302D Unspecified open wound, left foot, subsequent encounter; S91.301D Unspecified open wound, right foot, subsequent encounter; R60.0 Localized edema; M54.2 Cervicalgia; M25.512 Pain in left shoulder; M25.511 Pain in right shoulder; G62.1 Alcoholic polyneuropathy; I42.6 Alcoholic cardiomyopathy; I10 Essential (primary) hypertension; F10.10 Alcohol abuse, uncomplicated; J44.9 Chronic obstructive pulmonary disease, unspecified; Z85.118 Personal history of other malignant neoplasm of bronchus and lung; Z79.899 Other long term (current) drug therapy; Z79.891 Long term (current) use of opiate analgesic
CPT/HCPCS: 99213

== ENCOUNTER 2019-01-31 15:11 | Outpatient (CLI) | payer MEDICAID | END 2019-01-31 15:12 | disposition EMS.NT | LOC: EMS 15:11 | PROVIDERS: ATTEND Surgery | DX: R53.1 Weakness (principal) ==

== ENCOUNTER 2019-02-02 20:48 | Outpatient (CLI) | payer MEDICAID | END 2019-02-02 20:49 | disposition short-term general hospital (02) | LOC: EMS 20:48 | PROVIDERS: ATTEND Surgery | DX: R53.1 Weakness (principal); R06.02 Shortness of breath | CPT/HCPCS: A0425; A0427; A0999 ==

== ENCOUNTER 2019-02-13 13:15 | Outpatient (CLI) | payer MEDICAID ==
[2019-02-13 17:05] LABS: CALCIUM 9.1 mg/dL (8.5-10.3); CREATININE 0.9 mg/dL (0.6-1.2)
== END 2019-02-13 13:16 | disposition home or self-care (01) ==
LOC: LAB.S 13:15
PROVIDERS: ATTEND Nurse Practitioner Adult Health
DX: Z79.899 Other long term (current) drug therapy (principal)
CPT/HCPCS: 36415; 80048

== ENCOUNTER 2019-02-14 13:53 | Outpatient (CLI) | payer MEDICAID ==
--- NOTE | 2019-02-14 18:27 | CONSULTATION NOTE ---
Palliative Care Follow Up - Referral Referring Provider: Dr. Jodee Castillo Time of Visit: [id number] Referral setting: [facility] Referral Reason: Chronic Pain Syndrome/Stage IV Lung CA/CHF - Information Sources Records reviewed: Previous records reviewed History/Review of Systems obtained from: Patient Exam limitations: Clinical condition (patient easily overwhelmed; poor eyesight secondary to cataracts and can't read) - History of Present Illness Update Brief HPI Update: This is a complex 59-year-old gentleman known to me from his oncology diagnosis of adenocarcinoma of the lung stage IV originally diagnosed in 2013. He does have known brain mets status post [facility] at [facility] 02/2017. In 2018 had recurrence of disease in his right lung, as it originally received radiation therapy he received pembrolizumab 8 cycles finishing 03/2018. He is currently on surveillance, is due to have dating scans in the next 1 to 2 months. He did have an MRI of the brain, that did not show recurrent disease either and most likely seizure activity related to his hyponatremia and/or missing his Keppra. Patient is actually most problematic diagnoses end up being his lower extremity chronic peripheral neuropathy, multiple admits for heart failure attributed to alcoholic cardiomyopathy, and multiple recurring cellulitis and foot wounds requiring intermittent hospitalization. Patient is been hospitalized almost every 4 to 6 weeks related to cardiac status seizures, or cellulitis. Patient has poor social support, is managing his own care, is unable to read secondary to cataracts often unable to follow directions, and ongoing intermittent alcohol abuse. He is currently down to just a few beers a day, reporting he is cut back even further, given his ongoing issues around hyponatremia. Patient's most recent hospitalization was at [facility] 02/02 to 02/07/2019 with an exacerbation of acute combined systolic and diastolic congestive heart failure, was started on metoprolol. He feels he has been doing better. He was quite confused regarding his diuretics and potassium, he was instructed to stop his potassium as he is on Spironolactone and labs were drawn. He remains hyponatremic at 125, but his potassium is in normal range. Continues with intermittent COPD exacerbations, he is using his nebulizer 2-3 times a day, continues to smoke though he is trying to cut down, and continues with intermittent acute respiratory failure with hypoxia, this is multifactorial as well. Patient actually has fairly high symptom burden, with severe fatigue, he has been not weightbearing because of his most recent wound care issues, so has declined in functional status much to his dismay. He does have a fairly significant acute on chronic pain syndrome, particularly related to his peripheral neuropathy. Originally he also had multifactorial pain with pain in the chest, status post rib fractures, and continues to have a fairly high level of pain despite gabapentin 1600 mg twice daily, and opioid support. Patient's other past medical history includes anxiety, osteoarthritis, BPH, CAD, COPD, diverticulitis, history of seizures secondary to brain mets, hypertension, nephrolithiasis, history of pneumonia, GERD, status post amputation of lesser toe on the left, sleep apnea, thrombocytopenia, hyponatremia, and tobacco dependence. Social History - Living Situation Living arrangement: At home Living Situation: Alone, Other (has roomate) Support System: Patient lives in an apartment in the [facility], he is getting support through [place] [employer], they are assisting him with bathing, some meal prep. He continues to struggle with transportation, and overseeing the complexity of his care and appointments. He has to keep most of it in his head, as he cannot read related to his eyesight and bad cataracts. Is feeling somewhat adrift as he does not have a primary care provider, he is quite dependent and uses the medical system quite frequently. He did see Dr. Abbott, but she is leaving at the end of the year. Patient would benefit from a stable and regular relationship with a provider and primary care. He often calls palliative care when he gets overwhelmed, or is trying to navigate the system. Medications/Allergies - Medications Home Medications: Ambulatory Orders Medication Instructions Recorded Confirmed Lorazepam [Ativan] 1 mg PO Q8HR PRN 09/23/15 02/15/19 Tamsulosin [Flomax] 0.4 mg PO DAILY 06/29/16 02/15/19 Oxycodone HCl 10 - 20 mg PO Q4HR PRN MDD 8 tabs 07/26/17 02/15/19 Lidocaine Ointment 5% [Xylocaine 1 appful TOP PRN PRN 08/20/17 02/15/19 Ointment 5%] Gabapentin [Neurontin] 1,600 mg PO BID 09/27/17 02/15/19 Levetiracetam [Keppra] 500 mg PO BID #30 tablet 11/23/17 02/15/19 Ondansetron Odt [Zofran Odt] 4 mg TL Q6H PRN #15 tablet 03/19/18 02/15/19 Albuterol Sulf [Ventolin Hfa 2 puffs INH Q4HR PRN 05/09/18 02/15/19 Inhaler] Melatonin 3 - 6 mg PO QPM PRN 05/09/18 02/15/19 Vitamin B Complex/Folic Acid 1 tab PO DAILY 05/09/18 02/15/19 [Vitamin B-100 Complex Tablet] Nystatin 5 ml PO QID 10/04/18 02/15/19 diphenhydrAMINE [Benadryl] 25 mg PO Q6HR PRN 10/04/18 02/15/19 Sennosides/Docusate Sodium 1 tab PO BID PRN 11/13/18 02/15/19 [Docusate Sodium-Senna Tablet] Chlorhexidine Gluconate [Peridex] 15 ml PO DAILY 12/18/18 02/15/19 Esomeprazole Magnesium [Nexium] 20 mg PO DAILY 12/18/18 02/15/19 Magnesium 250 mg PO DAILY 12/18/18 02/15/19 Oxycodone HCl [Oxycontin] 20 mg PO BID 12/18/18 02/15/19 Polyethylene Glycol 3350 [Miralax] 17 gm PO DAILY PRN 12/18/18 02/15/19 Budesonide/Formoterol Fumarate 2 puffs IH BID 12/20/18 02/15/19 [Symbicort 160-4.5 Mcg Inhaler] Montelukast [Singulair] 10 mg PO QPM #30 tablet 12/28/18 02/15/19 Spironolactone [Aldactone] 25 mg PO DAILY #30 tablet 12/28/18 02/15/19 Torsemide 20 mg PO DAILY 01/11/19 02/15/19 Ipratropium/Albuterol [Duoneb] 3 ml INH Q4HR PRN 02/15/19 02/15/19 Naloxone HCl [Narcan] 1 spray CHANCE PRN PRN 02/15/19 02/15/19 - Allergies Allergies/Adverse Reactions: Allergies Allergy/AdvReac Type Severity Reaction Status Date / Time BRONWYN Inhibitors Allergy Emesis Verified 12/19/18 16:42 amoxicillin [From Augmentin] Allergy Emesis Verified 12/19/18 16:42 clavulanic acid Allergy Emesis Verified 12/19/18 16:42 [From Augmentin] lisinopril Allergy "THROAT Verified 12/19/18 16:42 SWELLING" Review of Systems - Constitutional Constitutional: reports: Fatigue, Weakness, Poor appetite. denies: Fever, Chills - Eyes Eyes: reports: Vision loss (severe cataracts has never been able to finish appointments needed; told he was not a candidate as he cannot lay back due to his severe kyphosis) - Ears, Nose & Throat Ears, Nose & Throat: reports: Hearing loss, Sore throat, Dry mouth (patient with increase pain/dry mouth felt it was his yeast again, took nystatin with resolution of symptoms) - Cardiovascular Cardiovascular: reports: Edema, Lightheadedness, Exertional dyspnea, Decr. exercise tolerance - Respiratory Respiratory: reports: SOB at rest (at times), SOB with exertion, Other (reports episodes of hypoxia; has to remember to position his airway) - Gastrointestinal Gastrointestinal: reports: Constipation, Nausea (uses ondansetron 1-2 x a day), Reflux/heartburn, Good appetite - Genitourinary Genitourinary: reports: Frequency, Urgency - Musculoskeletal Musculoskeletal: reports: Muscle pain, Back pain, Muscle aches, Stiffness, Limited range of motion, Muscle weakness, Joint pain, Assistive devices (has walker), Transfer issues (suppose to be nwb on right foot) - Integumentary Integumentary: reports: Pruritis (with oxycontin), Dryness, Nail changes (thickened fungal toes; wound care requesting help with facilitating podiatry appointment) - Neurological Neurological: reports: General weakness, Memory problems - Psychiatric Psychiatric: reports: Depression, Anxiety - Hematologic/Lymphatic Hematologic/Lymphatic: reports: Recurrent infections (currently not on AB; on frequently for cellulitis including IV a MAC recently) - All Other Systems All Other Systems: reports: Reviewed and negative Physical Exam - Vital Signs Pulse Rate: 67 Respiratory Rate: 18 O2 Saturation: 92 (ra @ rest) Blood Pressure: 111/67 - Physical Exam General Appearance: positive: Mild distress, Anxious Eyes Bilateral: positive: Conjunctivae nml, No scleral icterus ENT: positive: No signs of dehydration, Pharyngeal erythema. negative: Oral lesions Neck: positive: No JVD, Trachea midline Cardiovascular: positive: Regular rate & rhythm Respiratory: positive: Diminished throughout, Other (increased RR with activity and talking) Abdomen: positive: Non-tender, Nml bowel sounds, Distended, Taut, Obese Skin: positive: Pallor, Dryness, Wound (left foot wounds almost healed; right wounds still needing 2x a week drsg changes and debridement; discussed given patients homebound status have RN do weekly beginning of week and appt at [facility] end to ease burden) Extremities: positive: Pedal edema (1-2+; improved from baseline) Neurologic/Psychiatric: positive: Oriented x3, Weakness, Depressed mood/affect, Flat affect Palliative Care - POLST Patient has POLST: No POLST Status: Full Code Pain: Pain improved, Location (Patient's pain from CPR attempt and fractured ribs has improved back to baseline, still with some chest tenderness with deep breathing. Pain mostly located in his lower extremities, sharp shooting, using gabapentin 1600 mg twice daily, OxyContin 2-3 extended release 20 mg a day, and his oxycodone 10 mg up to 8 tabs. He is also using topical lidocaine for his lower extremities. Patient reports pain worsens in the morning, and at night after he is been up on them for the day.) Tiredness/Fatigue: Moderate (4-6) Drowsiness/Sedation: Mild (1-3) Nausea: Mild (1-3) Depression: Moderate (4-6) Anxiety: Severe (7-10) Dyspnea: Moderate (4-6) Anorexia: Mild (1-3) Sleep: Variable sleep pattern Constipation: Yes, Opoid induced, Intermittent constipation Feelings of wellbeing/Perceived Quality of Life: Fair, Acceptable, Improved Performance Status: Patient is suppose to be nonweightbearing on his right leg. This is provided challenging for him, he does have a transport chair but no unrelated to assist him other than when his caregivers there are he is in clinic. He does have a friend who is helping him some with meal prep, does feel like he is lost ground as he has not been able to weight-bear for several months or follow-through consistently on conditioning with physical therapy. Patient actually had gotten to the place where he was ambulating with his cane and much more independent. He has had both functional and noted some cognitive decline. - Palliative Care Discussion: Patient continues to be somewhat unrealistic about his health outcomes, continues to be a high utilizer of medical resources with his multiple comorbidities and multiple exacerbations of CHF, COPD, and cellulitis. He did have an episode where he had "stopped breathing", most likely due to his airway being cut off, and was administered CPR with resulting fractures. Patient continues to be quite anxious and difficulty visiting the concept of limited interventions. He did find it quite distressful, but he perceives it was better than the alternative which was an early in his mind. Patient does admit to severe anxiety, he has been trying to limit his lorazepam use in the context of counseling provided regarding safety. He has not wanted to pursue an antidepressant, with his hyponatremia it makes him a poor candidate for SSRIs anyway. Patient does have good rapport with palliative care practitioner, will continue to provide ongoing support and direction as able. Results - Lab Results Lab results reviewed: Yes Lab and Imaging Results: Reviewed BMP with patient, patient tends to "pop potassium" when he is feeling weak or not well. We discussed given his current medication regimen this is not advisable and counseled against. Will redraw in 2 weeks though. Patient also counseled regarding his hyponatremia Impression and Recommendations - Palliative Care Impression: Is a 59-year-old gentleman with severe and multiple comorbidities, continues to receive outpatient wound care, home health services, as well as multiple hospitalizations. Patient has high symptom burden, poor social support, poor insight, and acute on chronic pain. Palliative care continues to provide support as best allowed given patient's health care belief system and on going poor choices. Recommendations/Counseling Done: 1. Acute on chronic pain. Patient currently managed on gabapentin 1600 mg twice daily for his peripheral neuropathy. Patient provided OxyContin 20 mg twice daily, reviewed again concerns regarding his intermittent periods of hypoxia, combined choices with his beer and worried about his lack of social support. He did agree to trial a decreased dose. Patient does have naloxone, and does have control over a short acting oxycodone given his propensity to overuse, we did discuss again pacing himself and guidelines for monthly allotments only. Rx provided for 60 tabs of OxyContin 20 mg ER, with goal to consider ongoing decrease, and 240 tabs of 10 mg SA oxycodone NTE 8/24 hours. 2. Right foot wound. Patient is currently being supported by home health physical therapy, we did discuss in the context of anxiety and stressors, and coordination with wound care I GRADUATE STUDENT will initiate through primary care provider orders for home health nursing 1 time a week and wound care to see at the end of the week. Home health was communicated with and patient in the que, patient does have transportation for next week and wanted to start the week after next which was actually when home health was available. 3. Hyponatremia. This is multifactorial origin, patient may have SIADH, most likely though related to patient's ongoing beer consumption, counseling provided and reinforced from PCP regarding limitation of free water. Instructed to use other fluids, and will continue to monitor. 4. COPD. Patient wanted prescription for prednisone, he feels better on it. We discussed he is currently on Symbicort this is an oral support for his COPD, prednisone is not indicated at this point in time and would add to his problems with swelling, and immnosuppression, and ongoing thrush. Viewed meds patient has to support his breathing, including his nebulizer which he is using 2-3 times a day, and his singular. Patient acknowledged understanding. 5. Medication adherence. Patient quite anxious about medications, we did review he is to stop the potassium. He is on Spironolactone. We can recheck in 2 weeks as he does have a tendency to ache down even on the Spironolactone. 6. Acute combined systolic and diastolic congestive heart failure. Patient does have new medication metoprolol, he is being compliant with it. He is taking his torsemide 20 mg, he is unable to do daily weights to monitor. His edema does look better than in the past and he feels it is currently controlled. Patient continues to be at risk for ongoing sequela and hospitalizations. 7. Advanced care planning. Patient continues to be quite anxious regarding his ongoing and multiple health problems, he is trying to manage independently and gets overwhelmed easily. He has limited both cognitive and financial resources, continues to receive support through the palliative care team as well as through home health physical therapy, and wound care. He is due to see his oncologist in February, he is to initiate care with a commercial litigation paralegal. Did suggest try and given his transportation problems to see commercial litigation paralegal here at [facility]. He is concerned about having a PCP, as Dr. Abbott is only here to the end of the year. We discussed revisiting this closer to that time. Time Spent: 40 minutes is greater than 50% of this done in counseling, med reconciliation, anticipatory guidance, counseling regarding pain and symptom management and coordination of care will facilitate obtaining home health orders for nursing, coordinate with home health team, and coordinate with PCP for podiatry referral.
== END 2019-02-14 13:54 | disposition home or self-care (01) ==
LOC: PC 13:53
PROVIDERS: ATTEND Nurse Practitioner Adult Health
DX: Z51.5 Encounter for palliative care (principal); C34.90 Malignant neoplasm of unspecified part of unspecified bronchus or lung; C79.31 Secondary malignant neoplasm of brain; G89.29 Other chronic pain; F10.10 Alcohol abuse, uncomplicated; E87.1 Hypo-osmolality and hyponatremia; D69.6 Thrombocytopenia, unspecified; I11.0 Hypertensive heart disease with heart failure; I50.41 Acute combined systolic (congestive) and diastolic (congestive) heart failure; I25.10 Atherosclerotic heart disease of native coronary artery without angina pectoris; I73.9 Peripheral vascular disease, unspecified; J44.9 Chronic obstructive pulmonary disease, unspecified; G62.9 Polyneuropathy, unspecified; R56.9 Unspecified convulsions; H26.9 Unspecified cataract; F17.200 Nicotine dependence, unspecified, uncomplicated; R53.83 Other fatigue; F41.9 Anxiety disorder, unspecified; F32.9 Major depressive disorder, single episode, unspecified; N40.1 Benign prostatic hyperplasia with lower urinary tract symptoms; R35.0 Frequency of micturition; R39.15 Urgency of urination; K21.9 Gastro-esophageal reflux disease without esophagitis; G47.30 Sleep apnea, unspecified; H91.90 Unspecified hearing loss, unspecified ear; K59.00 Constipation, unspecified; R11.0 Nausea; L29.9 Pruritus, unspecified; B35.1 Tinea unguium; R53.1 Weakness; R41.3 Other amnesia; Z89.422 Acquired absence of other left toe(s); M19.90 Unspecified osteoarthritis, unspecified site; Z79.891 Long term (current) use of opiate analgesic; Z79.51 Long term (current) use of inhaled steroids; Z87.442 Personal history of urinary calculi; Z87.01 Personal history of pneumonia (recurrent)
CPT/HCPCS: 99215

== ENCOUNTER 2019-02-22 15:31 | Outpatient (CLI) | payer MEDICAID | END 2019-02-22 15:32 | disposition critical access hospital (66) | LOC: EMS 15:31 | PROVIDERS: ATTEND Surgery | DX: R06.00 Dyspnea, unspecified (principal) | CPT/HCPCS: A0425; A0427; A0999 ==

== ENCOUNTER 2019-02-22 16:13 | Inpatient (IN) | payer MEDICAID ==
[2019-02-22] MEDS ORDERED: HYDROmorphone 1 MG/ML CARPUJECT IVP STA (16:25)
--- NOTE | 2019-02-22 16:27 | ED Physician Documentation ---
PD HPI DYSPNEA - Stated complaint Stated Complaint: SOA - History obtained from History obtained from: Patient, EMS - History of Present Illness Timing - onset: Today (59-year-old gentleman with history of coronary disease, peripheral vascular disease, COPD, lung cancer with brain mets and resultant seizure disorder, chronic back pain. He presents by ambulance today because he has shortness of breath and pedal edema which is new. He also complains of back and foot pain. That is not new. About a month ago he had a short cardiac arrest after a seizure and was hospitalized here. He continues to smoke. He is in palliative care but is full code.) Review of Systems Constitutional: reports: Fatigue. denies: Fever, Chills Nose: denies: Rhinorrhea / runny nose, Congestion Cardiac: reports: Chest pain / pressure (from CPR last month, nothing new), Pedal edema. denies: Palpitations, Calf pain Respiratory: reports: Dyspnea. denies: Cough ("not more than normal") GI: denies: Abdominal Pain, Nausea, Vomiting, Diarrhea : denies: Dysuria, Frequency PD PAST MEDICAL HISTORY - Past Medical History Cardiovascular: Hypertension, Coronary artery disease, Peripheral Vascular Disease Respiratory: COPD, Shortness of breath, Other Neuro: Seizure disorder, Other Endocrine/Autoimmune: None GI: GERD, Chronic constipation, Diverticulitis : Benign prostate hypertrophy, Incontinence, Nocturia, Frequency HEENT: Chronic vision loss Psych: Anxiety Musculoskeletal: Chronic back pain, Other Derm: None - Past Surgical History Past Surgical History: Yes Ortho: Amputation Cardiovascular: Cardiac catheterization Neuro: Craniotomy, Gamma knife - Present Medications Home Medications: Ambulatory Orders Medication Instructions Recorded Confirmed Lorazepam [Ativan] 1 mg PO Q8HR PRN 09/23/15 02/15/19 Tamsulosin [Flomax] 0.4 mg PO DAILY 06/29/16 02/15/19 Oxycodone HCl 10 - 20 mg PO Q4HR PRN MDD 8 tabs 07/26/17 02/15/19 Lidocaine Ointment 5% [Xylocaine 1 appful TOP PRN PRN 08/20/17 02/15/19 Ointment 5%] Gabapentin [Neurontin] 1,600 mg PO BID 09/27/17 02/15/19 Levetiracetam [Keppra] 500 mg PO BID #30 tablet 11/23/17 02/15/19 Ondansetron Odt [Zofran Odt] 4 mg TL Q6H PRN #15 tablet 03/19/18 02/15/19 Albuterol Sulf [Ventolin Hfa 2 puffs INH Q4HR PRN 05/09/18 02/15/19 Inhaler] Melatonin 3 - 6 mg PO QPM PRN 05/09/18 02/15/19 Vitamin B Complex/Folic Acid 1 tab PO DAILY 05/09/18 02/15/19 [Vitamin B-100 Complex Tablet] Nystatin 5 ml PO QID 10/04/18 02/15/19 diphenhydrAMINE [Benadryl] 25 mg PO Q6HR PRN 10/04/18 02/15/19 Sennosides/Docusate Sodium 1 tab PO BID PRN 11/13/18 02/15/19 [Docusate Sodium-Senna Tablet] Chlorhexidine Gluconate [Peridex] 15 ml PO DAILY 12/18/18 02/15/19 Esomeprazole Magnesium [Nexium] 20 mg PO DAILY 12/18/18 02/15/19 Magnesium 250 mg PO DAILY 12/18/18 02/15/19 Oxycodone HCl [Oxycontin] 20 mg PO BID 12/18/18 02/15/19 Polyethylene Glycol 3350 [Miralax] 17 gm PO DAILY PRN 12/18/18 02/15/19 Budesonide/Formoterol Fumarate 2 puffs IH BID 12/20/18 02/15/19 [Symbicort 160-4.5 Mcg Inhaler] Montelukast [Singulair] 10 mg PO QPM #30 tablet 12/28/18 02/15/19 Spironolactone [Aldactone] 25 mg PO DAILY #30 tablet 12/28/18 02/15/19 Torsemide 20 mg PO DAILY 01/11/19 02/15/19 Ipratropium/Albuterol [Duoneb] 3 ml INH Q4HR PRN 02/15/19 02/15/19 Naloxone HCl [Narcan] 1 spray CHANCE PRN PRN 02/15/19 02/15/19 - Allergies Allergies/Adverse Reactions: Allergies Allergy/AdvReac Type Severity Reaction Status Date / Time BRONWYN Inhibitors Allergy Emesis Verified 02/22/19 16:28 amoxicillin [From Augmentin] Allergy Emesis Verified 02/22/19 16:28 clavulanic acid Allergy Emesis Verified 02/22/19 16:28 [From Augmentin] lisinopril Allergy "THROAT Verified 02/22/19 16:28 SWELLING" - Social History Does the pt smoke?: Yes Smoking Status: Current every day smoker Does the pt drink ETOH?: Yes Does the pt have substance abuse?: No - Immunizations Immunizations are current?: Yes - POLST Patient has POLST: No POLST Status: Other PD ED PE NORMAL - Vitals Vital signs reviewed: Yes - General General: Alert and oriented X 3, No acute distress - HEENT HEENT: PERRL, EOMI - Neck Neck: Supple, no meningeal sign, No bony TTP - Cardiac Cardiac: RRR, No murmur - Respiratory Respiratory: No respiratory distress, Other (diminished) - Abdomen Abdomen: Normal bowel sounds, Soft, Non tender - Back Back: No CVA TTP, No spinal TTP - Derm Derm: Normal color, Warm and dry - Extremities Extremities: Other (mod BLE pedal edema, pitting. He has chronic ulcers on the left great toe and right foot without signs of infection) - Neuro Neuro: Alert and oriented X 3, No motor deficit, No sensory deficit, Normal speech Results - Vitals Vitals: Vital Signs - 24 hr 02/22/19 02/22/19 02/22/19 16:24 16:28 18:00 Temperature 37.0 C Heart Rate 108 H 103 H 95 Respiratory 19 20 16 Rate Blood Pressure 137/87 H 110/73 O2 Saturation 89 L 93 02/22/19 18:28 Temperature Heart Rate 96 Respiratory 17 Rate Blood Pressure 108/80 O2 Saturation 94 Oxygen O2 Source [] Room air O2 Source Nasal cannula Oxygen Flow Rate 3 - Labs Labs: Laboratory Tests 02/22/19 02/22/19 02/22/19 16:46 16:46 16:46 WBC 6.9 RBC 4.17 L Hgb 10.9 L Hct 32.9 L MCV 78.9 L MCH 26.1 L MCHC 33.1 RDW 16.0 H Plt Count 217 MPV 8.5 Neut # (Auto) 5.5 Lymph # (Auto) 0.6 L Hayes # (Auto) 0.7 Eos # (Auto) 0.1 Baso # (Auto) 0.0 Absolute Nucleated RBC 0.00 Nucleated RBC % 0.0 Sodium 121 L Potassium 4.0 Chloride 81 L Carbon Dioxide 25 Anion Gap 15.0 H BUN 7 Creatinine 0.9 Estimated GFR (MDRD) 87 L Glucose 105 H Calcium 8.7 Total Bilirubin 0.5 AST 18 ALT 10 Alkaline Phosphatase 92 Troponin I High Sens B-Natriuretic Peptide 324 H Total Protein 7.2 Albumin 3.6 Globulin 3.6 Albumin/Globulin Ratio 1.0 Lipase 28 02/22/19 16:46 WBC RBC Hgb Hct MCV MCH MCHC RDW Plt Count MPV Neut # (Auto) Lymph # (Auto) Hayes # (Auto) Eos # (Auto) Baso # (Auto) Absolute Nucleated RBC Nucleated RBC % Sodium Potassium Chloride Carbon Dioxide Anion Gap BUN Creatinine Estimated GFR (MDRD) Glucose Calcium Total Bilirubin AST ALT Alkaline Phosphatase Troponin I High Sens 5.8 B-Natriuretic Peptide Total Protein Albumin Globulin Albumin/Globulin Ratio Lipase - Rads (name of study) CT chest Radiology: EMP read contemporaneously (No PEs, evidence of pulmonary hypertension coronary disease, moderate right sized pleural effusion and severe emphysema.) PD MEDICAL DECISION MAKING - ED course ED course: 59-year-old gentleman presents by EMS for increased shortness of breath. He told me he does not have an increased cough over baseline but the told the nurse he did. On room air he goes down to about 85% at rest. He does not wear oxygen at home. Work-up for PE given recent hospitalization, this was negative. He does have severe emphysema, moderate right pleural effusion, evidence of mild CHF, and hypervolemic hyponatremia. For this he was given Lasix, DuoNeb, prednisone, and Rocephin. Given hypoxemia he will need to be admitted for further evaluation and treatment. Spoke with Dr. Kimball for admission at 6:30 PM. Departure - Departure Disposition: 66 [facility] DC/Xfer Clinical Impression: Hyponatremia, COPD with exacerbation, Hypoxemia, Tobacco abuse Metastatic adenocarcinoma to lung Qualifiers: Laterality: right Qualified Code(s): C78.01 - Secondary malignant neoplasm of right lung Condition: Serious
[2019-02-22] MEDS ORDERED: IOVERSOL 320 100 ML VIAL IVP ONE ×2 (16:41→17:44)
[2019-02-22 16:54] LABS: BASOPHILS % (AUTO) 0.6 %; EOSINOPHILS # (AUTO) 0.1 10^3/uL (0.0-0.7); EOSINOPHILS % (AUTO) 0.9 %; HGB - HEMOGLOBIN 10.9 g/dL (14.0-18.0); LYMPHOCYTES # (AUTO) 0.6 10^3/uL (1.5-3.5); LYMPHOCYTES % (AUTO) 8.5 %; MEAN CORPUSCULAR HEMOGLOBIN 26.1 pg (27.0-31.0); MEAN CORPUSCULAR HGB CONC 33.1 g/dL (32.0-36.0); MEAN CORPUSCULAR VOLUME 78.9 fL (80.0-94.0); MEAN PLATELET VOLUME 8.5 fL (7.4-11.4); MONOCYTES # (AUTO) 0.7 10^3/uL (0.0-1.0); MONOCYTES % (AUTO) 10.1 %; NEUTROPHILS # (AUTO) 5.5 10^3/uL (1.5-6.6); NEUTROPHILS % (AUTO) 79.5 %; PLT - PLATELET COUNT 217 10^3/uL (130-450); RED BLOOD COUNT 4.17 10^6/uL (4.70-6.10); WHITE BLOOD COUNT 6.9 x10^3/uL (4.8-10.8)
[2019-02-22 17:10] LABS: ALBUMIN 3.6 g/dL (3.2-5.5); BILIRUBIN,TOTAL 0.5 mg/dL (0.2-1.0); CALCIUM 8.7 mg/dL (8.5-10.3); CREATININE 0.9 mg/dL (0.6-1.2); TOTAL PROTEIN 7.2 g/dL (6.7-8.2)
[2019-02-22] MEDS ORDERED: LORazepam 2 MG/ML VIAL IVP STA (17:17)
[2019-02-22] MEDS ORDERED: FUROSEMIDE 40 MG/4 ML VIAL IVP STA (17:43)
[2019-02-22] MEDS ORDERED: IPRATROPIUM/ALBUTEROL 3 ML NEB INH STA (17:43)
[2019-02-22] MEDS ORDERED: methylPREDNISolone SUCCINATE 125 MG/2 ML VIAL IVP STA (18:19)
[2019-02-22] MEDS ORDERED: cefTRIAXone 1 GM in SODIUM CHLORIDE 0.9% MINIBAG 100 ML IV STA (18:19)
--- NOTE | 2019-02-22 18:22 | CT Report ---
Reason: PE protocol, dyspnea Procedure Date: 02/22/2019 Accession Number: [id number] / [id number] Procedure: CT - ANGIO CHEST W/WO CPT Code: FULL RESULT: EXAM: CT ANGIOGRAM CHEST EXAM DATE: 02/22/2019 05:43 PM. CLINICAL HISTORY: PE protocol, dyspnea. COMPARISON: CHEST W/O 12/19/2018 9:42 PM. TECHNIQUE: Routine helical imaging was performed through the chest in the pulmonary arterial phase. IV Contrast: OPTI 320 80ML. Reconstructions: Coronal 3-D MIP reconstructions.Sagittal and coronal. In accordance with CT protocol optimization, one or more of the following dose reduction techniques were utilized for this exam: automated exposure control, adjustment of mA and/or KV based on patient size, or use of iterative reconstructive technique. FINDINGS: Pulmonary Arteries: Diagnostic quality: Adequate through the segmental arteries. No evidence for acute or chronic pulmonary emboli. Lungs/Pleura: Severe emphysema. Increase in now large right pleural effusion with adjoining atelectasis. Mild atelectasis in the left lung. No mass. Mediastinum: Imaged portions of the thyroid are grossly unremarkable. Thoracic aorta is normal caliber. No aortic dissection. Main pulmonary artery is dilated at 40 mm. Heart size is within normal limits. 3 vessel coronary artery calcifications. No pericardial effusion. Lymph Nodes: No mediastinal, hilar, or axillary adenopathy. Bones: Old right rib fractures are present. Visualized chest wall is grossly unremarkable. Partially Imaged Upper Abdomen: No acute abnormalities. IMPRESSION: No acute or chronic pulmonary embolus. Dilated main pulmonary artery, can be seen with pulmonary hypertension. Coronary artery calcifications. Increased, now moderate sized right pleural effusion with adjoining atelectasis. Severe emphysema as before. RADIA
[2019-02-22] MEDS ORDERED: HYDROcod/ACETAM 5/325 MG TABLET PO PRN (19:59)
--- NOTE | 2019-02-22 20:34 | HISTORY & PHYSICAL EXAMINATION ---
Chief Complaint - Chief Complaint Chief Complaint: dyspnea History of Present Illness - Admitted From Admitted From:: [facility] ED - History Obtained From Records Reviewed: yes History obtained from: patient - History of Present Illness HPI Comment/Other: Patient seen on 02/22/19 at 20:00pm Patient is a 59 y/o man who appears much older than stated age. He presents to the ED via EMS with 2 days of dyspnea, increased oxygen need, weakness, poor appetite and worsening lower extremity edema. He also adds that he has been feeling warm and shaky. He denies chest pain or abdominal pain. He has been nauseous and occasionally vomits as a result of increased secretion in his throat. Work up in the ED included CT of the chest which showed moderate right pleural effusion. As a result he is being admitted for further treatment. 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 He used to see Dr Jodee Castillo as primary hem/onc but now sees Dr Arellano at [facility], [place]. He has had brain mets since 2014 with resection in 2018. Had recurrence in right lung and has been off chemotherapy since 2018. Surveillance CT scans of lung mass has been reportedly improving per his oncologist. History - Past Medical History Cardiovascular: reports: Hypertension, Coronary artery disease, Peripheral Vascular Disease Respiratory: reports: COPD, Shortness of breath, Other Neuro: reports: Seizure disorder, Other Endocrine/Autoimmune: reports: None GI: reports: GERD, Chronic constipation, Diverticulitis : reports: Benign prostate hypertrophy, Incontinence, Nocturia, Frequency HEENT: reports: Chronic vision loss Psych: reports: Anxiety Musculoskeletal: reports: Chronic back pain, Other Derm: reports: Other (nonhealing ulcer on left big toe) MRSA Hx?: No - Past Surgical History Ortho: reports: Amputation Cardiovascular: reports: Cardiac catheterization Neuro: reports: Craniotomy, Gamma knife - Family & Social History Family History: Mother: , Cancer, Diabetes, Type 2, Father: , Cancer, Sister: Alive and Well, Cancer, Other family: Alive and Well Social History Notes: The patient lives in [place], [place] with a roommate whom he has recently met. The patient was born in [place] at [facility]. His father was in the but the patient himself was not in the . The patient has 3 children and is . He has a sister who lives on [facility]. The patient continues to smoke almost 1 pack/day and has been doing so for about 40 years. He also drinks 324 ounce beers and 3 shots of vodka daily. He denies any illicit drug use. - Substance History Use: Uses substance without health or social issues: Tobacco, Alcohol - POLST Patient has POLST: No POLST Status: Full Code Meds/Allgy - Home Medications Home Medications: Ambulatory Orders Medication Instructions Recorded Confirmed Lorazepam [Ativan] 1 mg PO Q8HR PRN 09/23/15 02/23/19 Tamsulosin [Flomax] 0.4 mg PO DAILY 06/29/16 02/23/19 Oxycodone HCl 10 - 20 mg PO Q4HR PRN MDD 8 tabs 07/26/17 02/23/19 Lidocaine Ointment 5% [Xylocaine 1 appful TOP PRN PRN 08/20/17 02/23/19 Ointment 5%] Gabapentin [Neurontin] 1,600 mg PO BID 09/27/17 02/23/19 Levetiracetam [Keppra] 500 mg PO BID #30 tablet 11/23/17 02/23/19 Ondansetron Odt [Zofran Odt] 4 mg TL Q6H PRN #15 tablet 03/19/18 02/23/19 Albuterol Sulf [Ventolin Hfa 2 puffs INH Q4HR PRN 05/09/18 02/23/19 Inhaler] Melatonin 3 - 6 mg PO QPM PRN 05/09/18 02/23/19 Vitamin B Complex/Folic Acid 1 tab PO DAILY 05/09/18 02/23/19 [Vitamin B-100 Complex Tablet] Nystatin 5 ml PO QID 10/04/18 02/23/19 diphenhydrAMINE [Benadryl] 25 mg PO Q6HR PRN 10/04/18 02/23/19 Sennosides/Docusate Sodium 1 tab PO BID PRN 11/13/18 02/23/19 [Docusate Sodium-Senna Tablet] Chlorhexidine Gluconate [Peridex] 15 ml PO DAILY 12/18/18 02/23/19 Esomeprazole Magnesium [Nexium] 20 mg PO DAILY 12/18/18 02/23/19 Magnesium 250 mg PO DAILY 12/18/18 02/23/19 Oxycodone HCl [Oxycontin] 20 mg PO BID 12/18/18 02/23/19 Polyethylene Glycol 3350 [Miralax] 17 gm PO DAILY PRN 12/18/18 02/23/19 Budesonide/Formoterol Fumarate 2 puffs IH BID 12/20/18 02/23/19 [Symbicort 160-4.5 Mcg Inhaler] Montelukast [Singulair] 10 mg PO QPM #30 tablet 12/28/18 02/23/19 Spironolactone [Aldactone] 25 mg PO DAILY #30 tablet 12/28/18 02/23/19 Torsemide 20 mg PO DAILY 01/11/19 02/23/19 Ipratropium/Albuterol [Duoneb] 3 ml INH Q4HR PRN 02/15/19 02/23/19 Naloxone HCl [Narcan] 1 spray CHANCE PRN PRN 02/15/19 02/23/19 - Allergies Allergies/Adverse Reactions: Allergies Allergy/AdvReac Type Severity Reaction Status Date / Time BRONWYN Inhibitors Allergy Emesis Verified 02/22/19 16:28 amoxicillin [From Augmentin] Allergy Emesis Verified 02/22/19 16:28 clavulanic acid Allergy Emesis Verified 02/22/19 16:28 [From Augmentin] lisinopril Allergy "THROAT Verified 02/22/19 16:28 SWELLING" Review of Systems - Constitutional Constitutional: reports: Fatigue, Chills, Weakness, Poor appetite - Eyes Eyes: denies: Pain, Dipolpia - Ears, Nose & Throat Ears, Nose & Throat: reports: Sore throat. denies: Vertigo, Nasal pain - Cardiovascular Cariovascular: reports: Edema, Exertional dyspnea, Decr. exercise tolerance. denies: Chest pain - Respiratory Respiratory: reports: Cough, Sputum production, SOB at rest, SOB with exertion - Gastrointestinal Gastrointestinal: reports: Constipation, Nausea, Vomiting. denies: Abdominal pain, Coffee grounds emesis, Reflux/heartburn - Genitourinary Genitourinary: denies: Dysuria, Frequency, Urgency, Hematuria, Incontinence, Flank pain - Musculoskeletal Musculoskeletal: reports: Back pain - Integumentary Integumentary: reports: Lesions (non healing ulcer on the bottom of left big toe). denies: Rash, Pruritis - Neurological Neurological: denies: Focal weakness, Headache, Dizziness, Numbness - Psychiatric Psychiatric: denies: Depression, Anxiety - Endocrine Endocrine: denies: Polyuria, Polydypsia - Hematologic/Lymphatic Hematologic/Lymphatic: denies: Anemia, Bruising, Petechiae Prior Level of Functionality: Has a room mate. Uses a walker/cane to get around. Has a caregiver who comes to the apartment Exam - Vital Signs Vital Signs: Vital Signs x48h Temp Pulse Resp BP Pulse Ox 02/22/19 19:40 37.0 C 102 H 18 95 02/22/19 18:28 96 17 108/80 94 02/22/19 18:00 95 16 02/22/19 16:28 103 H 20 110/73 93 02/22/19 16:24 37.0 C 108 H 19 137/87 H 89 L - Physical Exam General Appearance: positive: Alert, Moderate distress Eyes Bilateral: positive: PERRL, EOMI ENT: positive: ENT inspection nml Neck: positive: No JVD, Trachea midline Respiratory: positive: Chest non-tender, No respiratory distress. negative: Wheezes, Rales, Rhonchi Cardiovascular: positive: Tachycardia Abdomen: positive: Non-tender, Nml bowel sounds. negative: Guarding, Rebound Skin: positive: Color nml, No rash, Dry, Other (ulcer on the bottom of left big toe) Extremities: positive: Pedal edema (2+ bilaterally) Neurologic/Psychiatric: positive: Oriented x3, CN's nml (2-12), Motor nml, Sensation nml, Mood/affect nml Conclusion/Plan - Problem List (1) CHF exacerbation Conclusion/Plan: Patient given lasix 80mg IV X1 in the ED Will continue lasix 20mg IV bid and resume spironolactone once verified Daily weights. Strict I/O. 2D echo on Sunday (2) COPD (chronic obstructive pulmonary disease) Conclusion/Plan: Budesonide, formeterol, duoneb ordered Patient on oxygen via nasal canula (3) Seizure Conclusion/Plan: On keppra 500mg po bid (4) Metastatic adenocarcinoma to lung Conclusion/Plan: Patient follow with his oncologist at [facility] [place] Qualifiers: Laterality: right Qualified Code(s): C78.01 - Secondary malignant neoplasm of right lung (5) Foot ulcer, left Conclusion/Plan: Wound care consult ordered Patient follows with wound care at [facility] [place] (6) GERD (gastroesophageal reflux disease) Conclusion/Plan: Protonix ordered - Lab Results Fish Bones: 02/23/19 04:40 02/23/19 04:40 Core Measures - Anticipated LOS I expect patient to be DC'd or transferred within 96 hours.: Yes - DVT/VTE - Prophylaxis VTE/DVT Device ordered at admit?: Yes VTE/DVT Prophylaxis med ordered at admit?: Yes
[2019-02-22] MEDS ORDERED: guaiFENesin 600 MG TABLET PO SCH (21:00)
[2019-02-22] MEDS ORDERED: HYDROcod/ACETAM 10 MG/325 MG TABLET PO PRN (21:16)
[2019-02-22] MEDS ORDERED: LORazepam 1 MG TABLET PO PRN (21:31)
[2019-02-22] MEDS ORDERED: IPRATROPIUM/ALBUTEROL 3 ML NEB INH PRN (21:32)
[2019-02-22] MEDS ORDERED: levETIRAcetam 100 MG/ML 473ML BOTTLE PO SCH (22:00)
[2019-02-22] MEDS ORDERED: levETIRAcetam 250 MG TABLET ONE (22:34)
[2019-02-22] MEDS ORDERED: HYDROcod/ACETAM 10 MG/325 MG TABLET PO STA (22:38)
[2019-02-22] MEDS: levETIRAcetam 250 MG TABLET PO SCH (22:47)
[2019-02-22 23:10] LABS: MUDS CUTOFF CONCENTRATIONS CUTOFF CONC BELOW:
[2019-02-22 23:20] LABS: COCAINE SCREEN URINE NEGATIVE (NEGATIVE); METHAMPHETAMINES SCREEN, URINE NEGATIVE (NEGATIVE)
[2019-02-22 23:21] LABS: AMPHETAMINE SCREEN,URINE POSITIVE (NEGATIVE); BENZODIAZEPINES SCREEN, URINE NEGATIVE (NEGATIVE); METHADONE SCREEN, URINE NEGATIVE (NEGATIVE); OPIATE SCREEN, URINE NEGATIVE (NEGATIVE); OXYCODONE SCREEN, URINE POSITIVE (NEGATIVE); PROPOXYPHENE SCREEN, URINE NEGATIVE (NEGATIVE); TRICYCLIC ANTIDEPRESSANT,URINE NEGATIVE (NEGATIVE)
[2019-02-22] MEDS ORDERED: ONDANSETRON ODT 4 MG TABLET TL PRN (23:46)
[2019-02-23] MEDS: oxyCODONE ER 10 MG TABLET PO SCH ×3 (00:37→20:42)
[2019-02-23] MEDS: oxyCODONE 5 MG TABLET PO PRN ×3 (00:38→15:56)
[2019-02-23 05:00] LABS: LYMPHOCYTES # (AUTO) 0.2 10^3/uL (1.5-3.5); LYMPHOCYTES % (AUTO) 3.9 %; MEAN CORPUSCULAR HEMOGLOBIN 26.4 pg (27.0-31.0); MEAN CORPUSCULAR HGB CONC 33.1 g/dL (32.0-36.0); MEAN CORPUSCULAR VOLUME 79.6 fL (80.0-94.0); MEAN PLATELET VOLUME 8.9 fL (7.4-11.4); MONOCYTES # (AUTO) 0.1 10^3/uL (0.0-1.0); MONOCYTES % (AUTO) 2.6 %; NEUTROPHILS # (AUTO) 3.5 10^3/uL (1.5-6.6); NEUTROPHILS % (AUTO) 93.2 %; PLT - PLATELET COUNT 210 10^3/uL (130-450); RED BLOOD COUNT 4.55 10^6/uL (4.70-6.10); RED CELL DISTRIBUTION WIDTH 15.9 % (12.0-15.0); WHITE BLOOD COUNT 3.8 x10^3/uL (4.8-10.8)
[2019-02-23 05:05] LABS: CALCIUM 9.2 mg/dL (8.5-10.3); CREATININE 0.7 mg/dL (0.6-1.2)
[2019-02-23] MEDS ORDERED: FUROSEMIDE 20 MG/2 ML VIAL IVP SCH ×2 (06:00→06:41)
[2019-02-23] MEDS: SODIUM CHLORIDE FLUSH 0.9% 10 ML SYRINGE IVP SCH ×5 (06:24→23:44)
[2019-02-23] MEDS: PANTOPRAZOLE 40 MG TABLET PO SCH (06:24)
[2019-02-23] MEDS ORDERED: AZITHROMYCIN 250 MG TABLET PO STA (06:25)
[2019-02-23] MEDS: guaiFENesin/DEXTROMETHORPHAN 10 ML UDC PO PRN ×2 (06:56→23:44)
[2019-02-23] MEDS ORDERED: GABAPENTIN 400 MG CAPSULE PO SCH (07:00)
[2019-02-23] MEDS: BUDESONIDE 0.5 MG/2 ML NEB INH SCH ×2 (08:20→19:02)
[2019-02-23] MEDS: FORMOTEROL FUMARATE NEB 20 MCG/2 ML INH SCH ×2 (08:20→19:02)
[2019-02-23] MEDS: IPRATROPIUM/ALBUTEROL 3 ML NEB INH PRN ×2 (08:20→19:03)
[2019-02-23] MEDS ORDERED: LIDOCAINE OINTMENT 5% 35.44 GM TUBE TOP PRN ×2 (08:34→12:10)
[2019-02-23] MEDS ORDERED: POLYETHYLENE GLYCOL 3350 17 GM PACKET PO SCH (09:00)
[2019-02-23] MEDS ORDERED: LIDOCAINE 1% 10 ML MDV SUBQ ONE (09:00)
[2019-02-23] MEDS ORDERED: NYSTATIN 500000 UNITS/5 ML UDC PO SCH (09:00)
[2019-02-23] MEDS: levETIRAcetam 250 MG TABLET PO SCH ×2 (10:08→20:41)
[2019-02-23] MEDS: SPIRONOLACTONE 25 MG TABLET PO SCH (10:09)
[2019-02-23] MEDS: ENOXAPARIN 40 MG/0.4 ML SYRINGE SUBQ SCH ×2 (10:14→10:15)
[2019-02-23] MEDS: BENZOCAINE/MENTHOL LOZENGE MM PRN ×4 (11:52→23:44)
[2019-02-23] MEDS ORDERED: LOPERAMIDE 2 MG CAPSULE PO PRN (12:10)
[2019-02-23] MEDS ORDERED: NYSTATIN 500000 UNITS/5 ML UDC PO PRN (12:10)
[2019-02-23] MEDS ORDERED: CHLORHEXIDINE GLUCONATE 15 ML UDC PO PRN (12:10)
[2019-02-23] MEDS ORDERED: POLYETHYLENE GLYCOL 3350 17 GM PACKET PO PRN (12:10)
[2019-02-23] MEDS ORDERED: diphenhydrAMINE 25 MG CAPSULE PO PRN (12:10)
[2019-02-23] MEDS ORDERED: ONDANSETRON ODT 4 MG TABLET TL PRN (12:10)
--- NOTE | 2019-02-23 12:16 | PROVIDER PROGRESS NOTE ---
Subjective - Prog Note Date Prog Note Date: 02/23/19 Prog Note Time: 12:15 - Subjective Pt reports feeling: Improved Subjective: Alonso states that his primary complaint is his severe leg pain, that is worse since being in the hospital. He continues to have non-healing wounds. He has enjoyed some food while here. He has not chest pain, new blurred vision, but cannot get comfortable. He does not think that he has been urinating today. Current Medications - Current Medications Current Medications: Active Medications: Albuterol/Ipratropium (Duoneb) 3 ml INH RTQ4H PRN Azithromycin (Zithromax) 250 mg PO DAILY [facility] Budesonide (Pulmicort) 0.5 mg INH RTBID [facility] Chlorhexidine Gluconate (Peridex) 15 ml PO DAILY PRN Digoxin (Lanoxin) 125 mcg PO DAILY [facility] Digoxin (Lanoxin Inj) 250 mcg IVP ONCE [facility] Diphenhydramine HCl (Benadryl) 25 mg PO Q6HR PRN Enoxaparin Sodium (Lovenox) 40 mg SUBQ DAILY [facility] Formoterol Fumarate (Perforomist) 20 mcg INH RTBID [facility] Furosemide (Lasix Inj 40mg Vial) 20 mg IVP BID@0800,1600 [facility] Gabapentin (Neurontin) 1,600 mg PO BID [facility] Guaifenesin (Robitussin Dm) 10 ml PO Q6HR PRN Ceftriaxone Sodium 1 gm/ (Sodium Chloride) 100 mls @ 200 mls/hr IV DAILY@1800 [facility] Levetiracetam (Keppra) 500 mg PO BID [facility] Lidocaine (Xylocaine Ointment 5%) 1 applic TOP PRN PRN Loperamide HCl (Imodium) 2 mg PO QID PRN Lorazepam (Ativan) 1 mg PO Q8HR PRN Magnesium Oxide (Mag Ox) 400 mg PO DAILYWM [facility] Montelukast Sodium (Singulair) 10 mg PO QPM [facility] Nystatin (Mycostatin) 5 ml PO QID Ondansetron HCl (Zofran Odt) 4 mg TL Q6H PRN Oxycodone HCl (Oxycontin) 20 mg PO BID [facility] Oxycodone HCl (Roxicodone) 10 mg PO Q4HR PRN Pantoprazole Sodium (Protonix) 40 mg PO QDAC [facility] (Melatonin 6 Mg Tab) 1 each PO QPM [facility] Polyethylene Glycol (Miralax) 17 gm PO DAILY PRN Spironolactone (Aldactone) 25 mg PO DAILY [facility] Tamsulosin HCl (Flomax) 0.4 mg PO DAILY [facility] Throat Lozenges (Cepacol) 1 lozenge MM Q2HR PRN HOME meds: Lorazepam [Ativan] 1 mg PO Q8HR PRN 09/23/15 Tamsulosin [Flomax] 0.4 mg PO DAILY 06/29/16 Oxycodone HCl 10 - 20 mg PO Q4HR PRN MDD 8 tabs 07/26/17 Lidocaine Ointment 5% [Xylocaine Ointment 5%] 1 applic TOP PRN PRN 08/20/17 Gabapentin [Neurontin] 1,600 mg PO BID 09/27/17 Albuterol Sulf [Ventolin Hfa Inhaler] 2 puffs INH Q4HR PRN 05/09/18 Melatonin 3 - 6 mg PO QPM PRN 05/09/18 Vitamin B Complex/Folic Acid [Vitamin B-100 Complex Tablet] 1 tab PO DAILY 05/09/18 Nystatin 5 ml PO QID PRN 10/04/18 diphenhydrAMINE [Benadryl] 25 mg PO Q6HR PRN 10/04/18 Sennosides/Docusate Sodium [Docusate Sodium-Senna Tablet] 1 tab PO BID PRN 11/13/18 Chlorhexidine Gluconate [Peridex] 15 ml PO DAILY PRN 12/18/18 Esomeprazole Magnesium [Nexium] 20 mg PO DAILY 12/18/18 Magnesium 250 mg PO DAILY 12/18/18 Oxycodone HCl [Oxycontin] 20 mg PO Q8H 12/18/18 Polyethylene Glycol 3350 [Miralax] 17 gm PO DAILY PRN 12/18/18 Budesonide/Formoterol Fumarate [Symbicort 160-4.5 Mcg Inhaler] 2 puffs IH BID 12/20/18 Torsemide 20 mg PO DAILY 01/11/19 Ipratropium/Albuterol [Duoneb] 3 ml INH Q4HR PRN 02/15/19 Loperamide HCl [Loperamide] 2 mg PO QID PRN 02/23/19 Objective - Vital Signs/Intake & Output Reviewed Vital Signs: Yes Vital Signs: Vital Signs x48h Temp Pulse Pulse Resp BP Pulse Ox 02/23/19 08:20 87 20 02/23/19 07:40 36.8 C 86 16 129/76 93 Intake & Output: Intake & Output 02/20/19 02/21/19 02/22/19 02/23/19 23:59 23:59 23:59 23:59 Intake Total 600 400 Output Total 1100 3250 Balance -500 -2850 - Objective General Appearance: positive: Alert, Moderate distress Eyes Bilateral: positive: No lid inflammation ENT: positive: Pharyngeal erythema, Dry mucous membranes Neck: positive: Thyroid nml, No JVD, Lymphadenopathy (R), Lymphadenopathy (L), Stiff neck Respiratory: positive: Chest non-tender, Wheezes, Rhonchi Cardiovascular: positive: No gallop, Irregularly irregular, Tachycardia, Systolic murmur, Decreased pulse(s) Peripheral Pulses: 1+ Radial (R), 1+ Radial (L) Abdomen: positive: Non-tender, Nml bowel sounds, Other (rounded, soft) Back: positive: Nml inspection, CVA tenderness (R), CVA tenderness (L) Skin: positive: Color nml, No rash, Warm, Dry, Other (yellow stained hair/nails, scattered bruises and lesions) Extremities: positive: Pedal edema, Joint swelling, Other (chronic pitting edema) Neurologic/Psychiatric: positive: Oriented x3, CN's nml (2-12), Motor nml, Weakness, Sensory loss, Slurred/abnml speech (related to poor dentitian, chronic narcotic use), Depressed mood/affect Reflexes: Bicep (R): 2+, Bicep (L): 2+ - Lab Results Fish Bones: 02/23/19 04:40 02/23/19 04:40 Other Labs: Lab Results x24hrs 02/23/19 02/23/19 02/22/19 Range/Units 04:40 04:40 23:00 WBC 3.8 L (4.8-10.8) x10^3/uL RBC 4.55 L (4.70-6.10) 10^6/uL Hgb 12.0 L (14.0-18.0) g/dL Hct 36.2 L (42.0-52.0) % MCV 79.6 L (80.0-94.0) fL MCH 26.4 L (27.0-31.0) pg MCHC 33.1 (32.0-36.0) g/dL RDW 15.9 H (12.0-15.0) % Plt Count 210 (130-450) 10^3/uL MPV 8.9 (7.4-11.4) fL Neut # (Auto) 3.5 (1.5-6.6) 10^3/uL Lymph # (Auto) 0.2 L (1.5-3.5) 10^3/uL [place] # (Auto) 0.1 (0.0-1.0) 10^3/uL Eos # (Auto) 0.0 (0.0-0.7) 10^3/uL Baso # (Auto) 0.0 (0.0-0.1) 10^3/uL Absolute Nucleated RBC 0.00 x10^3/uL Nucleated RBC % 0.0 /100WBC Sodium 128 L (135-145) mmol/L Potassium 3.9 (3.5-5.0) mmol/L Chloride 88 L (101-111) mmol/L Carbon Dioxide 28 (21-32) mmol/L Anion Gap 12.0 (6-13) BUN 9 (6-20) mg/dL Creatinine 0.7 (0.6-1.2) mg/dL Estimated GFR (MDRD) 116 (>89) Glucose 175 H (70-100) mg/dL Calcium 9.2 (8.5-10.3) mg/dL Total Bilirubin (0.2-1.0) mg/dL AST (10-42) IU/L ALT (10-60) IU/L Alkaline Phosphatase (42-121) IU/L Troponin I High Sens (2.3-19.7) pg/mL B-Natriuretic Peptide (5-100) pg/mL Total Protein (6.7-8.2) g/dL Albumin (3.2-5.5) g/dL Globulin (2.1-4.2) g/dL Albumin/Globulin Ratio (1.0-2.2) Lipase (22-51) U/L Urine Opiates Screen NEGATIVE (NEGATIVE) Ur Oxycodone Screen POSITIVE H (NEGATIVE) Urine Methadone Screen NEGATIVE (NEGATIVE) Ur Propoxyphene Screen NEGATIVE (NEGATIVE) Ur Barbiturates Screen NEGATIVE (NEGATIVE) Ur Tricyclics Screen NEGATIVE (NEGATIVE) Ur Phencyclidine Scrn NEGATIVE (NEGATIVE) Ur Amphetamine Screen POSITIVE H (NEGATIVE) U Methamphetamines Scrn NEGATIVE (NEGATIVE) U Benzodiazepines Scrn NEGATIVE (NEGATIVE) Urine Cocaine Screen NEGATIVE (NEGATIVE) U Cannabinoids Screen NEGATIVE (NEGATIVE) 02/22/19 02/22/19 02/22/19 Range/Units 16:46 16:46 16:46 WBC (4.8-10.8) x10^3/uL RBC (4.70-6.10) 10^6/uL Hgb (14.0-18.0) g/dL Hct (42.0-52.0) % MCV (80.0-94.0) fL MCH (27.0-31.0) pg MCHC (32.0-36.0) g/dL RDW (12.0-15.0) % Plt Count (130-450) 10^3/uL MPV (7.4-11.4) fL Neut # (Auto) (1.5-6.6) 10^3/uL Lymph # (Auto) (1.5-3.5) 10^3/uL [place] # (Auto) (0.0-1.0) 10^3/uL Eos # (Auto) (0.0-0.7) 10^3/uL Baso # (Auto) (0.0-0.1) 10^3/uL Absolute Nucleated RBC x10^3/uL Nucleated RBC % /100WBC Sodium 121 L (135-145) mmol/L Potassium 4.0 (3.5-5.0) mmol/L Chloride 81 L (101-111) mmol/L Carbon Dioxide 25 (21-32) mmol/L Anion Gap 15.0 H (6-13) BUN 7 (6-20) mg/dL Creatinine 0.9 (0.6-1.2) mg/dL Estimated GFR (MDRD) 87 L (>89) Glucose 105 H (70-100) mg/dL Calcium 8.7 (8.5-10.3) mg/dL Total Bilirubin 0.5 (0.2-1.0) mg/dL AST 18 (10-42) IU/L ALT 10 (10-60) IU/L Alkaline Phosphatase 92 (42-121) IU/L Troponin I High Sens 5.8 (2.3-19.7) pg/mL B-Natriuretic Peptide 324 H (5-100) pg/mL Total Protein 7.2 (6.7-8.2) g/dL Albumin 3.6 (3.2-5.5) g/dL Globulin 3.6 (2.1-4.2) g/dL Albumin/Globulin Ratio 1.0 (1.0-2.2) Lipase 28 (22-51) U/L Urine Opiates Screen (NEGATIVE) Ur Oxycodone Screen (NEGATIVE) Urine Methadone Screen (NEGATIVE) Ur Propoxyphene Screen (NEGATIVE) Ur Barbiturates Screen (NEGATIVE) Ur Tricyclics Screen (NEGATIVE) Ur Phencyclidine Scrn (NEGATIVE) Ur Amphetamine Screen (NEGATIVE) U Methamphetamines Scrn (NEGATIVE) U Benzodiazepines Scrn (NEGATIVE) Urine Cocaine Screen (NEGATIVE) U Cannabinoids Screen (NEGATIVE) 02/22/19 Range/Units 16:46 WBC 6.9 (4.8-10.8) x10^3/uL RBC 4.17 L (4.70-6.10) 10^6/uL Hgb 10.9 L (14.0-18.0) g/dL Hct 32.9 L (42.0-52.0) % MCV 78.9 L (80.0-94.0) fL MCH 26.1 L (27.0-31.0) pg MCHC 33.1 (32.0-36.0) g/dL RDW 16.0 H (12.0-15.0) % Plt Count 217 (130-450) 10^3/uL MPV 8.5 (7.4-11.4) fL Neut # (Auto) 5.5 (1.5-6.6) 10^3/uL Lymph # (Auto) 0.6 L (1.5-3.5) 10^3/uL [place] # (Auto) 0.7 (0.0-1.0) 10^3/uL Eos # (Auto) 0.1 (0.0-0.7) 10^3/uL Baso # (Auto) 0.0 (0.0-0.1) 10^3/uL Absolute Nucleated RBC 0.00 x10^3/uL Nucleated RBC % 0.0 /100WBC Sodium (135-145) mmol/L Potassium (3.5-5.0) mmol/L Chloride (101-111) mmol/L Carbon Dioxide (21-32) mmol/L Anion Gap (6-13) BUN (6-20) mg/dL Creatinine (0.6-1.2) mg/dL Estimated GFR (MDRD) (>89) Glucose (70-100) mg/dL Calcium (8.5-10.3) mg/dL Total Bilirubin (0.2-1.0) mg/dL AST (10-42) IU/L ALT (10-60) IU/L Alkaline Phosphatase (42-121) IU/L Troponin I High Sens (2.3-19.7) pg/mL B-Natriuretic Peptide (5-100) pg/mL Total Protein (6.7-8.2) g/dL Albumin (3.2-5.5) g/dL Globulin (2.1-4.2) g/dL Albumin/Globulin Ratio (1.0-2.2) Lipase (22-51) U/L Urine Opiates Screen (NEGATIVE) Ur Oxycodone Screen (NEGATIVE) Urine Methadone Screen (NEGATIVE) Ur Propoxyphene Screen (NEGATIVE) Ur Barbiturates Screen (NEGATIVE) Ur Tricyclics Screen (NEGATIVE) Ur Phencyclidine Scrn (NEGATIVE) Ur Amphetamine Screen (NEGATIVE) U Methamphetamines Scrn (NEGATIVE) U Benzodiazepines Scrn (NEGATIVE) Urine Cocaine Screen (NEGATIVE) U Cannabinoids Screen (NEGATIVE) ABX Reporting Has patient been on IV antibiotics over the past 48 hours?: Yes Assessment/Plan - Problem List (1) 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 Impression: -Hospitalized at [facility] from 02/02 to 02/07/2019 with an exacerbation of acute combined congestive heart failure, was started on metoprolol -Patient states that he stopped this med due to low blood pressures in the past week -Diastolic dysfunction grade II from an echo dated 12/20/2018 -LVEF 60-65%, with mild concentric LVH in November 2018, now down to 45% on 02/04/2019 -Home meds for medical guided therapy at home include; Spironolactone, torsemide -Chest CT on 02/22 in the ED shows no pulmonary emboli or pneumonia, moderate sized right pleural effusion (persistent) -Oxygen saturation was low to mid 80s per ED provider report, charted as 89% on room air (no current home oxygen), tachycardia with heart rates 110s, complaints of chills, neck and back pain, with profound weakness -Started on IV Lasix, continued today, holding home torsemide -Severe electrolyte abnormalities with a sodium of 121 requiring hospitalization, now improved to 128 since IV diuretics -BNP is 324, negative troponin -Edema is improved since admission, still with +1-2 pitting BLE edema, abdominal edema Current medical guided therapy guidelines include; IV diuretics Neprilysin inhibitor with ARB, or BRONWYN inhibitor or ARB- contraindicated for this patient due to previous intolerance Beta-jessica- contraindicated for light blood pressures Digoxin- starting today with an IV loading dose follow by PO dose in the AM Aldosterone antagonist- continues on spironolactone Possible IV vasodilator (eg, nitrates, hydralazine) Plan: Continue daily weights, oxygen, trend cardiac biomarker of BNP, ABG for changes in mental status, CXR if not improving, EKG for chest pain, routine labs, I/O, bladder scans Cor Pulmonale - Moderate RV, severe RA enlargement noted, RVSP of 52 mmHg - Likely exacerbated by lung cancer, tobacco use and untreated JEREMIAH Plan: continue to support respiratory status, continue home meds, oxygen walking test prior to discharge to qualify for home O2 Acute COPD (chronic obstructive pulmonary disease) exacerbation - Patient continues to smoke at home, and does not have home oxygen - Life long, >40 years - Known history of metastatic lung cancer - Takes Budesonide, formoterol fumarate, duo-nebs, and Singular at home - Was given IV Rocephin, Lasix, duo-nebs, and prednisone in the ED - Rocephin has been continued here, but not on steroids - Productive cough on exam, chronic thrush - Continues to require 2-3L nasal cannula Plan: Continue to monitor, continue respiratory care, Budesonide, formeterol, d uoneb and Singular resumed, oxygen walking test prior to discharge PVD (peripheral vascular disease) - Recurrent wounds, status post left toe amputation (middle 3 toes) - Gabapentin, chronic narcotic use, magnesium, chronic edema from Cor Pulmonale - Cilostazol (Pletal) is contraindicated given his worsening CHF Plan: Continue to treat CHF treatment, elevate feet, treat pain with IV dilaudid as needed BPH - History of urinary retention, exacerbated by untreated scrotal hernia which causes compression - Patient notes that he has not been urinating today - Takes Flomax at home, continued here Plan: Continue Q shift bladder scans, consider santos for retention, still on Rocephin, continues on Flomax Chronic pain syndrome -Due to chronic PVD, recurrent BLE wounds -Takes oxycodone, OxyContin and gabapentin for this - Decreased mobility, likely from worsening CHF - Prescribed 3200 mg of gabapentin per day Plan: Continue oxycodone, resume long acting oxycontin, monitor for improvement 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, status post gamma knife - Consequently has recurrent seizures of which he takes Keppra Plan: Continue Keppra, monitor for seizures, seizure precautions Metastatic non-small cell lung cancer - Has a port a cath over the SVC since his chemo treatment- accessed today to be used for IV meds, and blood draws - Status post chemo - No reports of bloody sputum - Dependent on home O2 based on this diagnosis and Cor pulmonale Plan: Continue to monitor, continue respiratory care Alcohol abuse - Patient states that he has cut down recently - Also with a seizure disorder from his brain mets/gamma knife treatments - No s/s of withdrawal today, no initial blood alcohol level was checked Plan: Continue to monitor, encourage cessation, monitor LFTs, check a GGT in the AM Depression -High dose narcotics, gabapentin, benzodiazepimes limits indications for medical management of mood stabilizers or anti-depressants Plan: Offer support, social work consult, Palliative care consult if patient is here on Sunday Poor social support -Patient no longer has a PCP, but Franko Vazquez is listed in the [facility] discharge summary -Palliative care, Kari Thornton sees in his home -Patient lives in an apartment in [facility] -Caregivers per JAMES, they are assisting him with bathing, some meal prep -Transportation, and overseeing the complexity of his care and appointments continue to be troublesome -Poor vision limits independence -Has sketchy roommates, drug use, noncompliance Plan: Continue to support, Palliative care consult for Sunday Medical non-compliance - Patient was found with dried feces in groin and legs, lacking appropriate hygiene - Continues to abuse alcohol, use tobacco, and requires high dose gabapentin, oxy, and oxycontin Plan: Continue to treat infection
[2019-02-23] MEDS ORDERED: DIGOXIN 500 MCG/2 ML AMP IVP SCH ×2 (14:41→14:51)
[2019-02-23] MEDS: FUROSEMIDE 20 MG/2 ML VIAL IVP SCH (15:56)
[2019-02-23] MEDS: NYSTATIN 500000 UNITS/5 ML UDC PO SCH ×2 (16:01→20:52)
[2019-02-23] MEDS: LORazepam 1 MG TABLET PO PRN (18:28)
[2019-02-23] MEDS: cefTRIAXone 1 GM in SODIUM CHLORIDE 0.9% MINIBAG 100 ML IV SCH (18:29)
[2019-02-23] MEDS: HYDROmorphone 1 MG/ML CARPUJECT IVP PRN ×2 (19:53→23:44)
[2019-02-23] MEDS: GABAPENTIN 400 MG CAPSULE PO SCH (20:41)
[2019-02-23] MEDS: MONTELUKAST 10 MG TABLET PO SCH (20:42)
[2019-02-23] MEDS: CALCIUM CARBONATE CHEW 500 MG TABLET PO SCH (20:52)
[2019-02-23] MEDS: MELATONIN 6 MG PO SCH (20:53)
[2019-02-23] MEDS: SODIUM CHLORIDE FLUSH 0.9% 10 ML SYRINGE IVP PRN (23:44)
[2019-02-24] MEDS: SODIUM CHLORIDE FLUSH 0.9% 10 ML SYRINGE IVP PRN ×4 (05:17→21:20)
[2019-02-24] MEDS: HYDROmorphone 1 MG/ML CARPUJECT IVP PRN ×4 (05:18→21:19)
[2019-02-24] MEDS: BENZOCAINE/MENTHOL LOZENGE MM PRN ×4 (05:33→23:48)
[2019-02-24] MEDS: guaiFENesin/DEXTROMETHORPHAN 10 ML UDC PO PRN (05:33)
[2019-02-24 05:42] LABS: BASOPHILS % (AUTO) 0.4 %; EOSINOPHILS # (AUTO) 0.1 10^3/uL (0.0-0.7); EOSINOPHILS % (AUTO) 1.3 %; HGB - HEMOGLOBIN 10.9 g/dL (14.0-18.0); LYMPHOCYTES # (AUTO) 1.3 10^3/uL (1.5-3.5); LYMPHOCYTES % (AUTO) 18.3 %; MEAN CORPUSCULAR HEMOGLOBIN 26.5 pg (27.0-31.0); MEAN CORPUSCULAR HGB CONC 32.1 g/dL (32.0-36.0); MEAN CORPUSCULAR VOLUME 82.5 fL (80.0-94.0); MEAN PLATELET VOLUME 8.7 fL (7.4-11.4); MONOCYTES # (AUTO) 0.9 10^3/uL (0.0-1.0); MONOCYTES % (AUTO) 12.4 %; NEUTROPHILS # (AUTO) 4.8 10^3/uL (1.5-6.6); NEUTROPHILS % (AUTO) 67.3 %; PLT - PLATELET COUNT 218 10^3/uL (130-450); RED BLOOD COUNT 4.12 10^6/uL (4.70-6.10); RED CELL DISTRIBUTION WIDTH 16.4 % (12.0-15.0); WHITE BLOOD COUNT 7.1 x10^3/uL (4.8-10.8)
[2019-02-24 05:54] LABS: ALBUMIN 3.4 g/dL (3.2-5.5); ALBUMIN/GLOBULIN RATIO 0.9 (1.0-2.2); ALKALINE PHOSPHATASE 87 IU/L (42-121); ALT ALANINE AMINOTRANSFERASE < 10 IU/L (10-60); AST ASPARTATE AMINOTRANSFERASE 19 IU/L (10-42); BILIRUBIN,TOTAL 0.3 mg/dL (0.2-1.0); BUN - BLOOD UREA NITROGEN 14 mg/dL (6-20); CALCIUM 8.9 mg/dL (8.5-10.3); CARBON DIOXIDE - CO2 29 mmol/L (21-32); CHLORIDE 89 mmol/L (101-111); GFR - MDRD 77 (>89); GLUCOSE 124 mg/dL (70-100); SODIUM 130 mmol/L (135-145); TOTAL PROTEIN 7.2 g/dL (6.7-8.2)
[2019-02-24] MEDS: PANTOPRAZOLE 40 MG TABLET PO SCH (06:10)
[2019-02-24] MEDS: CALCIUM CARBONATE CHEW 500 MG TABLET PO SCH ×3 (06:10→21:12)
[2019-02-24] MEDS: oxyCODONE 5 MG TABLET PO PRN ×3 (06:22→12:44)
[2019-02-24] MEDS ORDERED: MAGNESIUM OXIDE 400 MG TABLET PO SCH (08:00)
--- NOTE | 2019-02-24 08:00 | PROVIDER PROGRESS NOTE ---
Subjective - Prog Note Date Prog Note Date: 02/24/19 Prog Note Time: 07:59 - Subjective Pt reports feeling: Improved Subjective: Alonso complains of BLE pain as usual, has been refusing certain things such as bladder scans, and claims that his independence is being taken away slowly. He denies chest pain, chest pressure, nausea, vomiting, a new rash, or a worsening cough. He continues to have a chronic sore throat, productive cough and feels more thirsty today. Current Medications - Current Medications Current Medications: Active Medications: Albuterol/Ipratropium (Duoneb) 3 ml INH RTQ4H PRN Azithromycin (Zithromax) 250 mg PO DAILY [facility] Budesonide (Pulmicort) 0.5 mg INH RTBID [facility] Chlorhexidine Gluconate (Peridex) 15 ml PO DAILY PRN Digoxin (Lanoxin) 125 mcg PO DAILY [facility] Digoxin (Lanoxin Inj) 250 mcg IVP ONCE [facility] Diphenhydramine HCl (Benadryl) 25 mg PO Q6HR PRN Enoxaparin Sodium (Lovenox) 40 mg SUBQ DAILY [facility] Formoterol Fumarate (Perforomist) 20 mcg INH RTBID [facility] Furosemide (Lasix Inj 40mg Vial) 20 mg IVP BID@0800,1600 [facility] Gabapentin (Neurontin) 1,600 mg PO BID [facility] Guaifenesin (Robitussin Dm) 10 ml PO Q6HR PRN Ceftriaxone Sodium 1 gm/ (Sodium Chloride) 100 mls @ 200 mls/hr IV DAILY@1800 [facility] Levetiracetam (Keppra) 500 mg PO BID [facility] Lidocaine (Xylocaine Ointment 5%) 1 applic TOP PRN PRN Loperamide HCl (Imodium) 2 mg PO QID PRN Lorazepam (Ativan) 1 mg PO Q8HR PRN Magnesium Oxide (Mag Ox) 400 mg PO DAILYWM [facility] Montelukast Sodium (Singulair) 10 mg PO QPM [facility] Nystatin (Mycostatin) 5 ml PO QID Ondansetron HCl (Zofran Odt) 4 mg TL Q6H PRN Oxycodone HCl (Oxycontin) 20 mg PO BID [facility] Oxycodone HCl (Roxicodone) 20 mg PO Q4HR PRN Pantoprazole Sodium (Protonix) 40 mg PO QDAC [facility] (Melatonin 6 Mg Tab) 1 each PO QPM [facility] Polyethylene Glycol (Miralax) 17 gm PO DAILY PRN Spironolactone (Aldactone) 25 mg PO DAILY [facility] Tamsulosin HCl (Flomax) 0.4 mg PO DAILY [facility] Throat Lozenges (Cepacol) 1 lozenge MM Q2HR PRN HOME meds: Lorazepam [Ativan] 1 mg PO Q8HR PRN 09/23/15 Tamsulosin [Flomax] 0.4 mg PO DAILY 06/29/16 Oxycodone HCl 10 - 20 mg PO Q4HR PRN MDD 8 tabs 07/26/17 Lidocaine Ointment 5% [Xylocaine Ointment 5%] 1 applic TOP PRN PRN 08/20/17 Gabapentin [Neurontin] 1,600 mg PO BID 09/27/17 Albuterol Sulf [Ventolin Hfa Inhaler] 2 puffs INH Q4HR PRN 05/09/18 Melatonin 3 - 6 mg PO QPM PRN 05/09/18 Vitamin B Complex/Folic Acid [Vitamin B-100 Complex Tablet] 1 tab PO DAILY 05/09/18 Nystatin 5 ml PO QID PRN 10/04/18 diphenhydrAMINE [Benadryl] 25 mg PO Q6HR PRN 10/04/18 Sennosides/Docusate Sodium [Docusate Sodium-Senna Tablet] 1 tab PO BID PRN 11/13/18 Chlorhexidine Gluconate [Peridex] 15 ml PO DAILY PRN 12/18/18 Esomeprazole Magnesium [Nexium] 20 mg PO DAILY 12/18/18 Magnesium 250 mg PO DAILY 12/18/18 Oxycodone HCl [Oxycontin] 20 mg PO Q8H 12/18/18 Polyethylene Glycol 3350 [Miralax] 17 gm PO DAILY PRN 12/18/18 Budesonide/Formoterol Fumarate [Symbicort 160-4.5 Mcg Inhaler] 2 puffs IH BID 12/20/18 Torsemide 20 mg PO DAILY 01/11/19 Ipratropium/Albuterol [Duoneb] 3 ml INH Q4HR PRN 02/15/19 Loperamide HCl [Loperamide] 2 mg PO QID PRN 02/23/19 Objective - Vital Signs/Intake & Output Reviewed Vital Signs: Yes Vital Signs: Vital Signs x48h Resp Pulse Ox 02/24/19 06:35 16 93 02/24/19 04:30 16 92 Intake & Output: Intake & Output 02/21/19 02/22/19 02/23/19 02/24/19 23:59 23:59 23:59 23:59 Intake Total 600 2039 2009 Output Total 1100 4900 Balance -500 -6870 2010 - Objective General Appearance: positive: No acute distress, Alert Eyes Bilateral: positive: PERRL, No lid inflammation Eyes: OU Conjunctivae pale ENT: positive: Pharynx nml, Dry mucous membranes Neck: positive: No JVD, Trachea midline Respiratory: positive: Chest non-tender, No respiratory distress, Wheezes, Rhonchi Cardiovascular: positive: No gallop, Irregularly irregular, Tachycardia, Systolic murmur, Decreased pulse(s) Peripheral Pulses: 1+ Radial (R), 1+ Radial (L) Abdomen: positive: Nml bowel sounds, Tenderness, Guarding, Hepatomegaly, Other (rounded, soft) Back: positive: Nml inspection Skin: positive: Color nml, No rash, Warm, Dry, Other (yellow hair/nails for ongoing tobacco use) Extremities: positive: Pedal edema, Joint swelling, Other (chronic BLE wounds, edema- pitting, improved) Neurologic/Psychiatric: positive: Oriented x3, CN's nml (2-12), Motor nml, Sensation nml, Weakness, Sensory loss, Slurred/abnml speech (chronic), Depressed mood/affect Reflexes: Bicep (R): 3+, Bicep (L): 3+, Ankle (R): 2+, Ankle (L): 2+ - Lab Results Fish Bones: 02/24/19 05:25 02/24/19 05:25 Other Labs: Lab Results x24hrs 02/24/19 02/24/19 Range/Units 05:25 05:25 WBC 7.1 (4.8-10.8) x10^3/uL RBC 4.12 L (4.70-6.10) 10^6/uL Hgb 10.9 L (14.0-18.0) g/dL Hct 34.0 L (42.0-52.0) % MCV 82.5 (80.0-94.0) fL MCH 26.5 L (27.0-31.0) pg MCHC 32.1 (32.0-36.0) g/dL RDW 16.4 H (12.0-15.0) % Plt Count 218 (130-450) 10^3/uL MPV 8.7 (7.4-11.4) fL Neut # (Auto) 4.8 (1.5-6.6) 10^3/uL Lymph # (Auto) 1.3 L (1.5-3.5) 10^3/uL Bland # (Auto) 0.9 (0.0-1.0) 10^3/uL Eos # (Auto) 0.1 (0.0-0.7) 10^3/uL Baso # (Auto) 0.0 (0.0-0.1) 10^3/uL Absolute Nucleated RBC 0.00 x10^3/uL Nucleated RBC % 0.0 /100WBC Sodium 130 L (135-145) mmol/L Potassium 3.7 (3.5-5.0) mmol/L Chloride 89 L (101-111) mmol/L Carbon Dioxide 29 (21-32) mmol/L Anion Gap 12.0 (6-13) BUN 14 (6-20) mg/dL Creatinine 1.0 (0.6-1.2) mg/dL Estimated GFR (MDRD) 77 L (>89) Glucose 124 H (70-100) mg/dL Calcium 8.9 (8.5-10.3) mg/dL Total Bilirubin 0.3 (0.2-1.0) mg/dL AST 19 (10-42) IU/L ALT < 10 L (10-60) IU/L Alkaline Phosphatase 87 (42-121) IU/L Total Protein 7.2 (6.7-8.2) g/dL Albumin 3.4 (3.2-5.5) g/dL Globulin 3.8 (2.1-4.2) g/dL Albumin/Globulin Ratio 0.9 L (1.0-2.2) ABX Reporting Has patient been on IV antibiotics over the past 48 hours?: Yes Assessment/Plan - Problem List (1) 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 Impression: -Hospitalized at [facility] from 02/02 to 02/07/2019 with an exacerbation of acute combined congestive heart failure, was started on metoprolol -Patient states that he stopped this med due to low blood pressures in the past week -Diastolic dysfunction grade II from an echo dated 12/20/2018 -LVEF 60-65%, with mild concentric LVH in November 2018, now down to 45% on 02/04/2019 -Home meds for medical guided therapy at home include; Spironolactone, torsemide -Chest CT on 02/22 in the ED shows no pulmonary emboli or pneumonia, moderate sized right pleural effusion (persistent) -Oxygen saturation was low to mid 80s per ED provider report, charted as 89% on room air (no current home oxygen), tachycardia with heart rates 110s, complaints of chills, neck and back pain, with profound weakness -Started on IV Lasix, continued today, holding home torsemide -Severe electrolyte abnormalities with a sodium of 121 requiring hospitalization, now improved to 128 since IV diuretics -BNP is 324, negative troponin -Edema is improved since admission, still with +1 pitting BLE edema, abdominal edema Current medical guided therapy guidelines include; IV diuretics (lasix 40 IV BID) Neprilysin inhibitor with ARB, or BRONWYN inhibitor or ARB- contraindicated for this patient due to previous intolerance Beta-jessica- contraindicated for light blood pressures Digoxin- started on 02/23 with an IV loading dose follow by PO dose in the AM Aldosterone antagonist- continues on spironolactone Possible IV vasodilator (eg, nitrates, hydralazine)- if further blood control is needed, may add hydralazine - Keeping K+ at 4.0, Mag at 2.0 - Weight appears to be down ~4 kg per daily weight charting Plan: Continue daily weights, oxygen, trend cardiac biomarker of BNP, routine labs, ABG for changes in mental status, CXR if not improving, EKG for chest pain, routine labs, I/O, bladder scans if the patient allows Hyponatremia - Admission sodium was low at 121, considered severe - Most likely due to fluid overload, CHF exacerbation (hypervolemia) - Since starting on loop IV diuretics, improved, now 130 - Patient complains of being more thirsty today Plan: Continue diuretics, transition to PO lasix in the AM, routine labs, fluid restriction if patient is exceeding greater than 2L of free fluid per day Cor Pulmonale - Moderate RV, severe RA enlargement noted, RVSP of 52 mmHg - Likely exacerbated by lung cancer, tobacco use and untreated JEREMIAH - No current home oxygen use Plan: continue to support respiratory status, continue respiratory cares, provide oxygen to keep saturation greater than 90%, continue home meds, oxygen walking test prior to discharge to qualify for home O2, spironolactone and lasix Acute COPD (chronic obstructive pulmonary disease) exacerbation - Patient continues to smoke at home, and does not have home oxygen - Life long, >40 years - Known history of metastatic lung cancer - Takes Budesonide, formoterol fumarate, duo-nebs, and Singular at home - Was given IV Rocephin, Lasix, duo-nebs, and prednisone in the ED - Rocephin has been continued here, but not on steroids - Productive cough on exam, chronic thrush - Continues to require 2-3L nasal cannula, no home O2 Plan: Continue to monitor, continue respiratory care, Budesonide, formeterol, duoneb and Singular resumed, oxygen walking test prior to discharge, continue empiric antibiotics of Rocephin, Azithromax PVD (peripheral vascular disease) - Recurrent wounds, status post left toe amputation (middle 3 toes) - Gabapentin, chronic narcotic use, magnesium, chronic edema from Cor Pulmonale - Cilostazol (Pletal) is contraindicated given his worsening CHF Plan: Continue to treat CHF treatment, elevate feet, treat pain with IV dilaudid as needed BPH - History of urinary retention, exacerbated by untreated scrotal hernia which causes compression - Patient notes that he has not been urinating today - Takes Flomax at home, continued here - Patient refuses an indwelling santos, and has complained about bladder scans Plan: Continue Q shift bladder scans, consider santos for retention, still on Rocephin, Azithromax, continues on Flomax Chronic pain syndrome -Due to chronic PVD, recurrent BLE wounds -Takes oxycodone, OxyContin and gabapentin for this - Decreased mobility, likely from worsening CHF - Prescribed 3200 mg of gabapentin per day Plan: Continue oxycodone, resume long acting oxycontin, monitor for improvement 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, status post gamma knife - Consequently has recurrent seizures of which he takes Keppra Plan: Continue Keppra, monitor for seizures, seizure precautions Metastatic non-small cell lung cancer - Has a port a cath over the SVC since his chemo treatment- accessed today to be used for IV meds, and blood draws - Status post chemo - No reports of bloody sputum - Dependent on home O2 based on this diagnosis and Cor pulmonale - Continues to smoke, + for amphetamines, yellow stained hair/nails Plan: Continue to monitor, continue respiratory care Alcohol abuse - Patient states that he has cut down recently - Also with a seizure disorder from his brain mets/gamma knife treatments - No s/s of withdrawal today, no initial blood alcohol level was checked Plan: Continue to monitor, encourage cessation, monitor LFTs, check a GGT in the AM Depression -High dose narcotics, gabapentin, benzodiazepimes limits indications for medical management of mood stabilizers or anti-depressants Plan: Offer support, social work consult, Palliative care consult if patient is here on Sunday Poor social support -Patient no longer has a PCP, but Franko Vazquez is listed in the [facility] discharge summary -Palliative care, Kari Thornton sees in his home -Patient lives in an apartment in [place] -Caregivers per JAMES, they are assisting him with bathing, some meal prep -Transportation, and overseeing the complexity of his care and appointments continue to be troublesome -Poor vision limits independence -Has sketchy roommates, drug use, noncompliance Plan: Continue to support, Palliative care consult for Sunday Medical non-compliance - On previous admission, the patient was found with dried feces in groin and legs, lacking appropriate hygiene, no mention of this for this hospital stay, but patient appears generally unkept - Continues to abuse alcohol, use tobacco, and requires high dose gabapentin, oxy, and oxycontin Plan: Continue to treat infection, encourage compliance
[2019-02-24] MEDS: LORazepam 1 MG TABLET PO PRN ×2 (08:32→17:42)
[2019-02-24] MEDS: AZITHROMYCIN 250 MG TABLET PO SCH (08:32)
[2019-02-24] MEDS: DIGOXIN 125 MCG TABLET PO SCH (08:32)
[2019-02-24] MEDS: FUROSEMIDE 20 MG/2 ML VIAL IVP SCH (08:32)
[2019-02-24] MEDS: ENOXAPARIN 40 MG/0.4 ML SYRINGE SUBQ SCH (08:33)
[2019-02-24] MEDS: DOCUSATE SODIUM 250 MG CAPSULE PO PRN (08:33)
[2019-02-24] MEDS: oxyCODONE ER 10 MG TABLET PO SCH ×2 (08:33→20:39)
[2019-02-24] MEDS: levETIRAcetam 250 MG TABLET PO SCH ×2 (08:33→20:39)
[2019-02-24] MEDS: SPIRONOLACTONE 25 MG TABLET PO SCH (08:33)
[2019-02-24] MEDS: TAMSULOSIN 0.4 MG CAPSULE PO SCH (08:33)
[2019-02-24] MEDS: GABAPENTIN 400 MG CAPSULE PO SCH ×2 (08:33→20:39)
[2019-02-24] MEDS: NYSTATIN 500000 UNITS/5 ML UDC PO SCH ×4 (08:34→21:12)
[2019-02-24] MEDS ORDERED: DOCUSATE SODIUM 250 MG CAPSULE PO SCH (09:00)
[2019-02-24] MEDS ORDERED: TORSEMIDE 20 MG TABLET PO SCH (09:00)
[2019-02-24] MEDS: BUDESONIDE 0.5 MG/2 ML NEB INH SCH ×2 (09:26→23:17)
[2019-02-24] MEDS: FORMOTEROL FUMARATE NEB 20 MCG/2 ML INH SCH ×2 (09:27→23:17)
[2019-02-24] MEDS ORDERED: POTASSIUM CHLORIDE 20 MEQ TABLET PO SCH (11:29)
[2019-02-24] MEDS ORDERED: FUROSEMIDE 20 MG/2 ML VIAL IVP SCH ×2 (16:00→16:30)
[2019-02-24] MEDS: SODIUM CHLORIDE FLUSH 0.9% 10 ML SYRINGE IVP SCH (16:23)
[2019-02-24] MEDS: MAGNESIUM OXIDE 400 MG TABLET PO SCH (16:23)
[2019-02-24] MEDS ORDERED: FUROSEMIDE 40 MG/4 ML VIAL IVP SCH ×2 (16:29→17:00)
[2019-02-24] MEDS: cefTRIAXone 1 GM in SODIUM CHLORIDE 0.9% MINIBAG 100 ML IV SCH (17:36)
[2019-02-24] MEDS: MONTELUKAST 10 MG TABLET PO SCH (20:38)
[2019-02-24] MEDS: MELATONIN 6 MG PO SCH (20:49)
[2019-02-25] MEDS: HYDROmorphone 1 MG/ML CARPUJECT IVP PRN ×3 (00:30→06:25)
[2019-02-25] MEDS: SODIUM CHLORIDE FLUSH 0.9% 10 ML SYRINGE IVP SCH ×3 (00:32→16:36)
[2019-02-25] MEDS ORDERED: SENNA 8.6 MG TABLET PO PRN (01:08)
[2019-02-25 05:15] LABS: BASOPHILS # (AUTO) 0.1 10^3/uL (0.0-0.1); BASOPHILS % (AUTO) 1.1 %; EOSINOPHILS # (AUTO) 0.4 10^3/uL (0.0-0.7); EOSINOPHILS % (AUTO) 5.7 %; HGB - HEMOGLOBIN 10.3 g/dL (14.0-18.0); LYMPHOCYTES # (AUTO) 1.5 10^3/uL (1.5-3.5); LYMPHOCYTES % (AUTO) 19.8 %; MEAN CORPUSCULAR HEMOGLOBIN 26.7 pg (27.0-31.0); MEAN CORPUSCULAR VOLUME 83.4 fL (80.0-94.0); MEAN PLATELET VOLUME 8.5 fL (7.4-11.4); NEUTROPHILS # (AUTO) 4.3 10^3/uL (1.5-6.6); PLT - PLATELET COUNT 207 10^3/uL (130-450); RED BLOOD COUNT 3.86 10^6/uL (4.70-6.10); RED CELL DISTRIBUTION WIDTH 16.3 % (12.0-15.0); WHITE BLOOD COUNT 7.4 x10^3/uL (4.8-10.8)
[2019-02-25 05:28] LABS: ALBUMIN 3.2 g/dL (3.2-5.5); ALKALINE PHOSPHATASE 76 IU/L (42-121); ALT ALANINE AMINOTRANSFERASE < 10 IU/L (10-60); AST ASPARTATE AMINOTRANSFERASE 17 IU/L (10-42); BILIRUBIN,TOTAL 0.4 mg/dL (0.2-1.0); BUN - BLOOD UREA NITROGEN 20 mg/dL (6-20); CALCIUM 8.6 mg/dL (8.5-10.3); CARBON DIOXIDE - CO2 30 mmol/L (21-32); CHLORIDE 90 mmol/L (101-111); CREATININE 0.8 mg/dL (0.6-1.2); GFR - MDRD 100 (>89); GLUCOSE 102 mg/dL (70-100); MAGNESIUM 1.8 mg/dL (1.7-2.8); SODIUM 130 mmol/L (135-145); TOTAL PROTEIN 6.5 g/dL (6.7-8.2)
[2019-02-25] MEDS: CALCIUM CARBONATE CHEW 500 MG TABLET PO SCH ×2 (06:24→11:46)
[2019-02-25] MEDS: PANTOPRAZOLE 40 MG TABLET PO SCH (06:25)
[2019-02-25] MEDS: ENOXAPARIN 40 MG/0.4 ML SYRINGE SUBQ SCH (07:38)
[2019-02-25] MEDS: BUDESONIDE 0.5 MG/2 ML NEB INH SCH (08:05)
[2019-02-25] MEDS: FORMOTEROL FUMARATE NEB 20 MCG/2 ML INH SCH (08:05)
[2019-02-25] MEDS: LORazepam 1 MG TABLET PO PRN (08:49)
[2019-02-25] MEDS: SPIRONOLACTONE 25 MG TABLET PO SCH (08:49)
[2019-02-25] MEDS: oxyCODONE ER 10 MG TABLET PO SCH (08:49)
[2019-02-25] MEDS: AZITHROMYCIN 250 MG TABLET PO SCH (08:49)
[2019-02-25] MEDS: NYSTATIN 500000 UNITS/5 ML UDC PO SCH ×3 (08:49→16:35)
[2019-02-25] MEDS: DOCUSATE SODIUM 250 MG CAPSULE PO PRN (08:49)
[2019-02-25] MEDS: GABAPENTIN 400 MG CAPSULE PO SCH (08:49)
[2019-02-25] MEDS: DIGOXIN 125 MCG TABLET PO SCH (08:49)
[2019-02-25] MEDS: BENZOCAINE/MENTHOL LOZENGE MM PRN (08:49)
[2019-02-25] MEDS: TAMSULOSIN 0.4 MG CAPSULE PO SCH (08:49)
[2019-02-25] MEDS: levETIRAcetam 250 MG TABLET PO SCH (08:50)
[2019-02-25] MEDS: MAGNESIUM OXIDE 400 MG TABLET PO SCH ×2 (08:50→16:34)
[2019-02-25] MEDS ORDERED: TORSEMIDE 20 MG TABLET PO SCH (09:00)
[2019-02-25 09:06] LABS: ABSOLUTE RETICS # AUTO 0.067 10^6/uL (0.020-0.110); RED BLOOD COUNT 3.94 10^6/uL (4.70-6.10)
[2019-02-25 09:34] LABS: FERRITIN 89.1 ng/mL (23.9-336.2)
[2019-02-25 09:41] LABS: % IRON SATURATION 6 % (20-50); IRON 19 ug/dL (45-182); TOTAL IRON BINDING CAPACITY 300 ug/dL (250-450); TRANSFERRIN 214 mg/dL (180-329)
[2019-02-25] MEDS ORDERED: LACTULOSE 10 GM /15 ML UDC PO SCH ×2 (10:00→11:00)
[2019-02-25] MEDS: oxyCODONE 5 MG TABLET PO PRN ×2 (11:46→16:35)
[2019-02-25] MEDS: IPRATROPIUM/ALBUTEROL 3 ML NEB INH PRN (13:13)
--- NOTE | 2019-02-25 15:01 | Discharge Plan ---
Discharge Plan Problem Reviewed?: Yes Disposition: Home, Self Care Condition: Poor Prescriptions: Digoxin [Lanoxin] 125 mcg PO DAILY #10 tablet Ferrous Sulfate 325 mg PO DAILY #15 tablet Diet: Regular Activity Restrictions: Activity as Tolerated Shower Restrictions: No (fall precaution) Instruction Topics: Digoxin, Anemia Iron Deficiency Ch Health Concerns: dyspnea Plan of Treatment: you had a great improvement after treatment in the hospital. You walked about 200 feet on room air. advise you quit cigarette smoking, followup pulmonary rehab, and followup your wound care as your schedule. Care Goals: stabilization and improvement for your medical conditions. Assessment: assessment as the above Additional Instructions or Follow Up instructions: you may followup your PCP in one week, followup pulmonary rehab, and psychologist research assistant and knocker off as out-pt, followup wound care as your schedule. Should your symptoms return or worsen, you may present ER, call 911 for help. Follow-Up Care: [facility] - Pulmonary No Smoking: If you smoke, Please STOP! Call for help. Follow-up with: Jodee Lara PA-C [Primary Care Provider] -
--- NOTE | 2019-02-25 15:45 | DISCHARGE SUMMARY ---
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 pt state he is working on lit foot ulcer, left stable, continue MAC clinic SVT stable. dyspnea resolved as his baseline. hx of seizure stable. - HPI History of Present Illness: Patient seen on 02/22/19 at 20:00pm Patient is a 59 y/o man who appears much older than stated age. He presents to the ED via EMS with 2 days of dyspnea, increased oxygen need, weakness, poor appetite and worsening lower extremity edema. He also adds that he has been feeling warm and shaky. He denies chest pain or abdominal pain. He has been nauseous and occasionally vomits as a result of increased secretion in his throat. Work up in the ED included CT of the chest which showed moderate right pleural effusion. As a result he is being admitted for further treatment. 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 He used to see Dr Jodee Castillo as primary hem/onc but now sees Dr Arellano at [facility]. He has had brain mets since 2014 with resection in 2018. Had recurrence in right lung and has been off chemotherapy since 2018. Surveillance CT scans of lung mass has been reportedly improving per his oncologist. - HOSPITAL COURSE Hospital Course: pt was admitted for dyspnea. pt has hx of lung cancer at stage 4 and metastatic to his brain. After chemotherapy and surgical intervention, pt has been remission stage. pt also had hx of combined systolic and diastolic stage C CHF. pt's BNP increased. pt was found increase BNP CTA of chest found pt has no PE, but with increase to moderate right lung pleural effusion. after pt had IV of diuretics, clinically pt had significantly improved. pt walked 200 foot at medical floor on room air with RT and remain above 90% sats. pt state he feel much better. pt was found to have mild SVT, digoxin controlled pt's HR. pt also is arranged for pulmonary rehab. 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 pt's BNP decreased to 113 from 324. clinically pt had significantly improved. pt walked 200 foot at medical floor on room air with RT and remain above 90% sats. continue home diuretics, followup PCP and maintainer central office Hyponatremia stable, chronic COPD (chronic obstructive pulmonary disease) stable, continue home INH treatment, followup PCP, all purpose clerk, and pulmonary rehab PVD (peripheral vascular disease) stable BPH stable Chronic pain syndrome stable Brain cancer stable, followup oncologist Metastatic non-small cell lung cancer stable, followup oncologist Alcohol abuse stable, pt report he will quit Depression stable Palliative care continue Medical non-compliance consulted, pt state he will do medical compliance current cigarette smoker consulted. pt state he is working on lit foot ulcer, left stable, continue MAC clinic care SVT stable. pt is prescribed digoxin. pt's HR is controlled now. followup cardiol ogist. dyspnea resolved as his baseline. moderate pleural effusion seems not affect pt's breath status now.pt walked 200 foot at medical floor on room air with RT and remain above 90% sats. followup all purpose clerk and oncologist. hx of seizure stable. continue home regimen. - ALLERGIES Allergies/Adverse Reactions: Allergies Allergy/AdvReac Type Severity Reaction Status Date / Time BRONWYN Inhibitors Allergy Emesis Verified 02/22/19 16:28 amoxicillin [From Augmentin] Allergy Emesis Verified 02/22/19 16:28 clavulanic acid Allergy Emesis Verified 02/22/19 16:28 [From Augmentin] lisinopril Allergy "THROAT Verified 02/22/19 16:28 SWELLING" - MEDICATIONS Home Medications: Ambulatory Orders Medication Instructions Recorded Confirmed Lorazepam [Ativan] 1 mg PO Q8HR PRN 09/23/15 02/23/19 Tamsulosin [Flomax] 0.4 mg PO DAILY 06/29/16 02/23/19 Oxycodone HCl 10 - 20 mg PO Q4HR PRN MDD 8 tabs 07/26/17 02/23/19 Lidocaine Ointment 5% [Xylocaine 1 applic TOP PRN PRN 08/20/17 02/23/19 Ointment 5%] Gabapentin [Neurontin] 1,600 mg PO BID 09/27/17 02/23/19 Levetiracetam [Keppra] 500 mg PO BID #30 tablet 11/23/17 02/23/19 Ondansetron Odt [Zofran Odt] 4 mg TL Q6H PRN #15 tablet 03/19/18 02/23/19 Albuterol Sulf [Ventolin Hfa 2 puffs INH Q4HR PRN 05/09/18 02/23/19 Inhaler] Melatonin 3 - 6 mg PO QPM PRN 05/09/18 02/23/19 Vitamin B Complex/Folic Acid 1 tab PO DAILY 05/09/18 02/23/19 [Vitamin B-100 Complex Tablet] Nystatin 5 ml PO QID PRN 10/04/18 02/23/19 diphenhydrAMINE [Benadryl] 25 mg PO Q6HR PRN 10/04/18 02/23/19 Sennosides/Docusate Sodium 1 tab PO BID PRN 11/13/18 02/23/19 [Docusate Sodium-Senna Tablet] Chlorhexidine Gluconate [Peridex] 15 ml PO DAILY PRN 12/18/18 02/23/19 Esomeprazole Magnesium [Nexium] 20 mg PO DAILY 12/18/18 02/23/19 Magnesium 250 mg PO DAILY 12/18/18 02/23/19 Oxycodone HCl [Oxycontin] 20 mg PO Q8H 12/18/18 02/23/19 Polyethylene Glycol 3350 [Miralax] 17 gm PO DAILY PRN 12/18/18 02/23/19 Budesonide/Formoterol Fumarate 2 puffs IH BID 12/20/18 02/23/19 [Symbicort 160-4.5 Mcg Inhaler] Montelukast [Singulair] 10 mg PO QPM #30 tablet 12/28/18 02/23/19 Spironolactone [Aldactone] 25 mg PO DAILY #30 tablet 12/28/18 02/23/19 Torsemide 20 mg PO DAILY 01/11/19 02/23/19 Ipratropium/Albuterol [Duoneb] 3 ml INH Q4HR PRN 02/15/19 02/23/19 Loperamide HCl [Loperamide] 2 mg PO QID PRN 02/23/19 02/23/19 Digoxin [Lanoxin] 125 mcg PO DAILY #10 tablet 02/25/19 Ferrous Sulfate 325 mg PO DAILY #15 tablet 02/25/19 - PHYSICAL EXAM AT DISCHARGE General Appearance: positive: No acute distress, Alert. negative: Lethargic Eyes Bilateral: positive: Normal inspection, PERRL, No lid inflammation, Conjunctivae nml ENT: positive: ENT inspection nml, Pharynx nml, No signs of dehydration. negative: Purulent nasal drainage, Pharyngeal erythema, Oral lesions Neck: positive: Nml inspection, Thyroid nml, No JVD, Trachea midline. negative: Thyromegaly, Lymphadenopathy (R), Lymphadenopathy (L), Stiff neck, Swelling/bruising, Tracheal deviation Respiratory: positive: Chest non-tender, No respiratory distress. negative: Wheezes, Rales Cardiovascular: positive: Regular rate & rhythm, No murmur, No gallop. negative: Irregularly irregular, Extrasystoles, Tachycardia, Bradycardia, JVD present, Systolic murmur, Diastolic murmur Peripheral Pulses: positive: 2+ Abdomen: positive: Non-tender, No organomegaly, Nml bowel sounds, No distention. negative: Tenderness, Guarding, Rebound Back: positive: Nml inspection. negative: CVA tenderness (R), CVA tenderness (L) Skin: positive: Color nml, No rash, Warm, Dry, Laceration (cm). negative: Cyanosis, Diaphoresis, Pallor Extremities: positive: Non-tender. negative: Calf tenderness, Joint swelling, Abhijit's sign/cords Neurologic/Psychiatric: positive: Oriented x3, Sensation nml, Mood/affect nml. negative: Weakness, Sensory loss, Facial droop, Slurred/abnml speech, Depressed mood/affect - LABS Result Diagrams: 02/25/19 05:00 02/25/19 05:00 - FOLLOW UP Follow Up: you had a great improvement after treatment in the hospital. You walked about 200 feet on room air. advise you quit cigarette smoking, followup pulmonary rehab, and followup your wound care as your schedule. you may followup your PCP in one week, followup pulmonary rehab, and all purpose clerk, oncologist and maintainer central office as out-pt, followup wound care as your schedule. Should your symptoms return or worsen, you may present ER, call 911 for help. - TIME SPENT Time Spent in Discharge (Minutes): 60
[2019-02-25] MEDS ORDERED: FERROUS SULFATE 325 MG TABLET PO SCH (16:00)
[2019-02-25 18:19] VITALS: BP 112/71
== END 2019-02-25 18:05 | disposition home health service (06) | DRG 292 ==
LOC: ED 16:13 → MS2 18:35
PROVIDERS: ADMIT Internal Medicine; ATTEND Nurse Practitioner Gerontology
DX: I11.0 Hypertensive heart disease with heart failure (principal); E87.1 Hypo-osmolality and hyponatremia; G40.509 Epileptic seizures related to external causes, not intractable, without status epilepticus; I47.1 Supraventricular tachycardia; B37.0 Candidal stomatitis; J43.9 Emphysema, unspecified; I50.43 Acute on chronic combined systolic (congestive) and diastolic (congestive) heart failure; T50.1X6A Underdosing of loop [high-ceiling] diuretics, initial encounter; Z91.128 Patient's intentional underdosing of medication regimen for other reason; Y92.009 Unspecified place in unspecified non-institutional (private) residence as the place of occurrence of the external cause; R09.02 Hypoxemia; I25.10 Atherosclerotic heart disease of native coronary artery without angina pectoris; I73.9 Peripheral vascular disease, unspecified; I27.81 Cor pulmonale (chronic); M54.9 Dorsalgia, unspecified; G89.4 Chronic pain syndrome; L97.519 Non-pressure chronic ulcer of other part of right foot with unspecified severity; L97.529 Non-pressure chronic ulcer of other part of left foot with unspecified severity; K21.9 Gastro-esophageal reflux disease without esophagitis; F10.10 Alcohol abuse, uncomplicated; F17.210 Nicotine dependence, cigarettes, uncomplicated; N40.1 Benign prostatic hyperplasia with lower urinary tract symptoms; R35.1 Nocturia; R33.8 Other retention of urine; K40.90 Unilateral inguinal hernia, without obstruction or gangrene, not specified as recurrent; F32.9 Major depressive disorder, single episode, unspecified; F41.9 Anxiety disorder, unspecified; K59.09 Other constipation; J02.9 Acute pharyngitis, unspecified; Z51.5 Encounter for palliative care; Z60.8 Other problems related to social environment; Z89.422 Acquired absence of other left toe(s); Z92.21 Personal history of antineoplastic chemotherapy; Z85.118 Personal history of other malignant neoplasm of bronchus and lung; Z86.74 Personal history of sudden cardiac arrest; Z92.3 Personal history of irradiation; Z79.899 Other long term (current) drug therapy; Z79.891 Long term (current) use of opiate analgesic; Z79.51 Long term (current) use of inhaled steroids; Z88.8 Allergy status to other drugs, medicaments and biological substances; Z95.828 Presence of other vascular implants and grafts
CPT/HCPCS: 36415; 71275; 80048; 80053; 80306; 82607; 82728; 82977; 83540; 83615; 83690; 83735; 83880; 84466; 84484; 85025; 85044; 93005; 94640; 94664; 96374; 96375; 99283; 99285; A9270; J1170; J2060; J7626; J8499; Q0162; Q9967

== ENCOUNTER 2019-03-07 09:04 | Outpatient (CLI) | payer MEDICAID | END 2019-03-07 09:05 | disposition critical access hospital (66) | LOC: EMS 09:04 | PROVIDERS: ATTEND Surgery | DX: R06.02 Shortness of breath (principal) | CPT/HCPCS: A0425; A0427; A0999 ==

== ENCOUNTER 2019-03-07 09:41 | Inpatient (IN) | payer MEDICAID ==
[2019-03-07] MEDS ORDERED: FUROSEMIDE 40 MG/4 ML VIAL IVP STA (10:12)
[2019-03-07 10:24] LABS: BASOPHILS % (AUTO) 0.6 %; EOSINOPHILS # (AUTO) 0.2 10^3/uL (0.0-0.7); EOSINOPHILS % (AUTO) 3.8 %; HGB - HEMOGLOBIN 10.8 g/dL (14.0-18.0); LYMPHOCYTES # (AUTO) 0.7 10^3/uL (1.5-3.5); LYMPHOCYTES % (AUTO) 11.1 %; MEAN CORPUSCULAR HEMOGLOBIN 26.9 pg (27.0-31.0); MEAN CORPUSCULAR HGB CONC 32.9 g/dL (32.0-36.0); MEAN CORPUSCULAR VOLUME 81.6 fL (80.0-94.0); MEAN PLATELET VOLUME 8.6 fL (7.4-11.4); MONOCYTES # (AUTO) 0.6 10^3/uL (0.0-1.0); MONOCYTES % (AUTO) 9.2 %; NEUTROPHILS # (AUTO) 4.8 10^3/uL (1.5-6.6); PLT - PLATELET COUNT 204 10^3/uL (130-450); RED BLOOD COUNT 4.02 10^6/uL (4.70-6.10); RED CELL DISTRIBUTION WIDTH 17.2 % (12.0-15.0); WHITE BLOOD COUNT 6.4 x10^3/uL (4.8-10.8)
[2019-03-07 10:39] LABS: ALBUMIN 3.3 g/dL (3.2-5.5); ALBUMIN/GLOBULIN RATIO 0.9 (1.0-2.2); ALKALINE PHOSPHATASE 89 IU/L (42-121); ALT ALANINE AMINOTRANSFERASE < 10 IU/L (10-60); AST ASPARTATE AMINOTRANSFERASE 19 IU/L (10-42); BILIRUBIN,TOTAL 0.6 mg/dL (0.2-1.0); BUN - BLOOD UREA NITROGEN 5 mg/dL (6-20); CALCIUM 8.5 mg/dL (8.5-10.3); CARBON DIOXIDE - CO2 27 mmol/L (21-32); CHLORIDE 81 mmol/L (101-111); CREATININE 0.8 mg/dL (0.6-1.2); GFR - MDRD 100 (>89); GLUCOSE 106 mg/dL (70-100); LIPASE 20 U/L (22-51); SODIUM 121 mmol/L (135-145); TOTAL PROTEIN 6.8 g/dL (6.7-8.2)
[2019-03-07 11:11] LABS: BILIRUBIN,URINE NEGATIVE (NEGATIVE); CLARITY,URINE CLEAR (CLEAR); GLUCOSE, URINE (UA) NEGATIVE (NEGATIVE); KETONES,URINE (UA) NEGATIVE (NEGATIVE); LEUKOCYTE ESTERASE, URINE NEGATIVE (NEGATIVE); NITRITE,URINE NEGATIVE (NEGATIVE); OCCULT BLOOD,URINE MODERATE (NEGATIVE); PH,URINE 6.5 PH (5.0-7.5); PROTEIN,URINE NEGATIVE (NEGATIVE); UROBILINOGEN,URINE 0.2 (NORMAL) E.U./dL (NORMAL)
[2019-03-07] MEDS ORDERED: oxyCODONE 5 MG TABLET PO STA ×2 (11:25→12:37)
[2019-03-07 11:26] LABS: BACTERIA,URINE Rare /HPF (None Seen); RBC,URINE 0-5 /HPF (0-5); SQUAMOUS EPITHELIAL CELL,UR RARE Squamous (<= Few)
--- NOTE | 2019-03-07 11:28 | XRAY Report ---
Reason: dyspnea Procedure Date: 03/07/2019 Accession Number: [id number] / [id number] Procedure: XR - Chest 1 View X-Ray CPT Code: 84929 FULL RESULT: EXAM: CHEST RADIOGRAPHY EXAM DATE: 03/07/2019 10:23 AM. CLINICAL HISTORY: Dyspnea. COMPARISON: CHEST 1 VIEW 12/21/2018 2:55 AM CHEST ANGIO 02/22/2019 5:33 PM. TECHNIQUE: 1 view. FINDINGS: Lungs/Pleura: Right pleural effusion again seen. Interstitial prominence is again evident. Right mid and lower lung opacity is similar. No pneumothorax. Mediastinum: Heart size and mediastinal contour are unchanged. Other: Left subclavian portacatheter is again seen. IMPRESSION: 1. Right pleural effusion and right mid lower lung opacity without significant change compared to the CT from 02/22/2019. 2. Interstitial prominence, stable. RADIA
--- NOTE | 2019-03-07 11:39 | ED Physician Documentation ---
PD HPI DYSPNEA - Stated complaint Stated Complaint: SOA - Chief complaint Chief Complaint: Resp - History obtained from History obtained from: Patient, EMS - History of Present Illness Timing - onset: How many days ago (3 or 4) Timing - details: Gradual onset Worsened by: Laying flat Similar symptoms before: Diagnosis (CHF) Recently seen: Admitted - Additional information Additional information: The patient is a 59-year-old male who presents with shortness of breath stating, "I cannot breathe right." He has noticed increased swelling of his legs and generalized weakness. He has a history of congestive heart failure, COPD, and lung cancer with metastases to the brain. He also has history of coronary artery disease, and seizures. He was hospitalized here from 02/22 to 02/25/2019 for congestive heart failure. He has been using torsemide, stating that he has been taking the medication as prescribed. He reports slight cough. He denies fever or chest pain. He reports nausea, without vomiting. He continues to smoke cigarettes. Review of Systems Constitutional: reports: Fatigue. denies: Fever Nose: denies: Congestion Throat: denies: Sore throat Cardiac: denies: Chest pain / pressure Respiratory: reports: Dyspnea, Cough GI: reports: Nausea. denies: Abdominal Pain, Vomiting : denies: Dysuria Skin: denies: Rash Musculoskeletal: reports: Back pain (Chronically.), Extremity swelling Neurologic: reports: Generalized weakness. denies: Focal weakness, Numbness, Headache PD PAST MEDICAL HISTORY - Past Medical History Cardiovascular: Hypertension, Coronary artery disease, Peripheral Vascular Disease Respiratory: COPD, Shortness of breath, Other Neuro: Seizure disorder, Other Endocrine/Autoimmune: None GI: GERD, Chronic constipation, Diverticulitis : Benign prostate hypertrophy, Incontinence, Nocturia, Frequency HEENT: Chronic vision loss Psych: Anxiety Musculoskeletal: Chronic back pain, Other Derm: Other - Past Surgical History Past Surgical History: Yes Ortho: Amputation Cardiovascular: Cardiac catheterization Neuro: Craniotomy, Gamma knife - Present Medications Home Medications: Ambulatory Orders Medication Instructions Recorded Confirmed Lorazepam [Ativan] 1 mg PO Q8HR PRN 09/23/15 03/07/19 Tamsulosin [Flomax] 0.4 mg PO DAILY 06/29/16 03/07/19 Oxycodone HCl 10 - 20 mg PO Q4HR PRN MDD 8 tabs 07/26/17 03/07/19 Lidocaine Ointment 5% [Xylocaine 1 applic TOP PRN PRN 08/20/17 03/07/19 Ointment 5%] Gabapentin [Neurontin] 1,600 mg PO BID 09/27/17 03/07/19 Levetiracetam [Keppra] 500 mg PO BID #30 tablet 11/23/17 02/23/19 Ondansetron Odt [Zofran Odt] 4 mg TL Q6H PRN #15 tablet 03/19/18 03/07/19 Albuterol Sulf [Ventolin Hfa 2 puffs INH Q4HR PRN 05/09/18 03/07/19 Inhaler] Melatonin 3 - 6 mg PO QPM PRN 05/09/18 03/07/19 Nystatin 5 ml PO QID PRN 10/04/18 03/07/19 diphenhydrAMINE [Benadryl] 25 mg PO Q6HR PRN 10/04/18 03/07/19 Chlorhexidine Gluconate [Peridex] 15 ml PO DAILY PRN 12/18/18 03/07/19 Esomeprazole Magnesium [Nexium] 20 mg PO DAILY 12/18/18 03/07/19 Magnesium 250 mg PO BID 12/18/18 03/07/19 Oxycodone HCl [Oxycontin] 20 mg PO Q12H 12/18/18 03/07/19 Polyethylene Glycol 3350 [Miralax] 17 gm PO DAILY PRN 12/18/18 03/07/19 Budesonide/Formoterol Fumarate 2 puffs IH BID 12/20/18 03/07/19 [Symbicort 160-4.5 Mcg Inhaler] Montelukast [Singulair] 10 mg PO QPM #30 tablet 12/28/18 03/07/19 Spironolactone [Aldactone] 25 mg PO DAILY #30 tablet 12/28/18 03/07/19 Torsemide 20 mg PO DAILY 01/11/19 03/07/19 Ipratropium/Albuterol [Duoneb] 3 ml INH Q4HR PRN 02/15/19 03/07/19 Loperamide HCl [Loperamide] 2 mg PO QID PRN 02/23/19 03/07/19 Digoxin [Lanoxin] 125 mcg PO DAILY #10 tablet 02/25/19 03/07/19 Ferrous Sulfate 325 mg PO DAILY #15 tablet 02/25/19 Varenicline Tartrate [Chantix] 0.5 mg PO DAILY #11 tablet 03/07/19 Varenicline Tartrate [Chantix] 1 mg PO BID #60 tablet 03/07/19 - Allergies Allergies/Adverse Reactions: Allergies Allergy/AdvReac Type Severity Reaction Status Date / Time BRONWYN Inhibitors Allergy Emesis Verified 03/07/19 09:47 amoxicillin [From Augmentin] Allergy Emesis Verified 03/07/19 09:47 clavulanic acid Allergy Emesis Verified 03/07/19 09:47 [From Augmentin] lisinopril Allergy "THROAT Verified 03/07/19 09:47 SWELLING" - Social History Does the pt smoke?: Yes Smoking Status: Current every day smoker Does the pt drink ETOH?: Yes Does the pt have substance abuse?: No - Immunizations Immunizations are current?: Yes - POLST Patient has POLST: No POLST Status: Full Code PD ED PE NORMAL - Vitals Vital signs reviewed: Yes (Pulse oximetry is low at 85% on room air.) - General General: Alert and oriented X 3, Well developed/nourished, Other (Appears older than stated age.) - HEENT HEENT: Atraumatic, Moist mucous membranes - Neck Neck: Supple, no meningeal sign, No adenopathy - Cardiac Cardiac: RRR - Respiratory Respiratory: Other (Rales bilaterally.) - Abdomen Abdomen: Soft, Non tender, Other (Rotund abdomen.) - Back Back: No CVA TTP - Derm Derm: No rash - Extremities Extremities: No calf tenderness / cord, Other (2-3+ pedal edema bilaterally, more on the right than the left.) - Neuro Neuro: Alert and oriented X 3, No motor deficit, Normal speech Results - Vitals Vitals: Vital Signs - 24 hr 03/07/19 03/07/19 03/07/19 09:42 10:09 10:10 Temperature 36.6 C Heart Rate 99 88 89 Respiratory 22 24 22 Rate Blood Pressure 101/71 O2 Saturation 85 L 79 L 94 03/07/19 03/07/19 10:25 12:14 Temperature Heart Rate 87 81 Respiratory 17 12 Rate Blood Pressure 98/69 105/62 O2 Saturation 92 92 Oxygen O2 Source [Without Activity] Room air O2 Source Nasal cannula Oxygen Flow Rate 2 - EKG (time done) 10:24 Rate: Rate (enter#) (88) Rhythm: NSR [place]: Other (Rightward axis) Intervals: Other (IVCD) Ischemia: Non specific changes Compare to prior EKG: Unchanged from prior EKG Computer interpretation: Agree with computer - Labs Labs: Laboratory Tests 03/07/19 03/07/19 03/07/19 10:19 10:19 10:19 WBC 6.4 RBC 4.02 L Hgb 10.8 L Hct 32.8 L MCV 81.6 MCH 26.9 L MCHC 32.9 RDW 17.2 H Plt Count 204 MPV 8.6 Neut # (Auto) 4.8 Lymph # (Auto) 0.7 L [place] # (Auto) 0.6 Eos # (Auto) 0.2 Baso # (Auto) 0.0 Absolute Nucleated RBC 0.00 Nucleated RBC % 0.0 Sodium 121 L Potassium 3.6 Chloride 81 L Carbon Dioxide 27 Anion Gap 13.0 BUN 5 L Creatinine 0.8 Estimated GFR (MDRD) 100 Glucose 106 H Lactic Acid Calcium 8.5 Total Bilirubin 0.6 AST 19 ALT < 10 L Alkaline Phosphatase 89 Troponin I High Sens 6.4 B-Natriuretic Peptide Total Protein 6.8 Albumin 3.3 Globulin 3.5 Albumin/Globulin Ratio 0.9 L Lipase 20 L Urine Color Urine Clarity Urine pH Ur Specific [place] Urine Protein Urine Glucose (UA) Urine Ketones Urine Occult Blood Urine Nitrite Urine Bilirubin Urine Urobilinogen Ur Leukocyte Esterase Urine RBC Urine WBC Ur Squamous Epith Cells Urine Bacteria Ur Microscopic Review Urine Culture Comments 03/07/19 03/07/19 03/07/19 10:19 10:46 10:47 WBC RBC Hgb Hct MCV MCH MCHC RDW Plt Count MPV Neut # (Auto) Lymph # (Auto) [place] # (Auto) Eos # (Auto) Baso # (Auto) Absolute Nucleated RBC Nucleated RBC % Sodium Potassium Chloride Carbon Dioxide Anion Gap BUN Creatinine Estimated GFR (MDRD) Glucose Lactic Acid 2.1 Calcium Total Bilirubin AST ALT Alkaline Phosphatase Troponin I High Sens B-Natriuretic Peptide 478 H Total Protein Albumin Globulin Albumin/Globulin Ratio Lipase Urine Color YELLOW Urine Clarity CLEAR Urine pH 6.5 Ur Specific [place] <=1.005 Urine Protein NEGATIVE Urine Glucose (UA) NEGATIVE Urine Ketones NEGATIVE Urine Occult Blood MODERATE H Urine Nitrite NEGATIVE Urine Bilirubin NEGATIVE Urine Urobilinogen 0.2 (NORMAL) Ur Leukocyte Esterase NEGATIVE Urine RBC 0-5 Urine WBC 0-3 Ur Squamous Epith Cells RARE Squamous Urine Bacteria Rare Ur Microscopic Review INDICATED Urine Culture Comments NOT INDICATED - Rads (name of study) CXR Radiology: Prelim report reviewed, EMP read contemporaneously, See rad report (Right pleural effusion and right mid lower lung opacity without significant change compared to the CT from 02/22/2019. Interstitial prominence, stable.) PD MEDICAL DECISION MAKING - ED course Complexity details: reviewed old records, reviewed results, re-evaluated patient, considered differential, d/w patient, d/w [employer] consultant ED course: The patient's presentation is significant for recurrent congestive heart failure with right pleural effusion, elevated BNP of 478, and an initial low pulse oximetry of 79% on room air. His pulse oximetry improved to 94% on 2 L supplemental oxygen. His electrocardiogram reveals no evidence of acute ischemic abnormality, and his chest x-ray despite revealing a right pleural effusion is not significantly changed from prior chest x-ray. Further lab values reveal hyponatremia with a sodium of 121. Treatment in the emergency department included administration of Lasix 40 mg IV. He had more than 800 mL urine output, but continued to report dyspnea, especially with the slightest activity such as getting up to the bedside commode. His pulse oximetry drops to 88% on room air. The patient has chronic back pain, and states that he takes 20 mg of oxycodone at a time. I declined to administer that higher dosage, but agreed to administer 10 mg of oxycodone. I discussed his condition with Dr. Denton, who accepts him for further evaluation and treatment. Departure - Departure Disposition: [facility] DC/Xfer Clinical Impression: Pleural effusion, Hyponatremia Congestive heart failure Qualifiers: Heart failure type: combined systolic and diastolic Condition: Fair Discharge Date/Time: 03/07/19 14:45
--- NOTE | 2019-03-07 13:52 | HISTORY & PHYSICAL EXAMINATION ---
Chief Complaint - Chief Complaint Chief Complaint: shortness of breath Chest Pain Admission HPI - Admitted From Admitted from: ED - History Obtained From Records Reviewed: RN notes reviewed, Old records reviewed History obtained from: Patient Exam limitations: No limitations - History of Present Illness Pain/Problem Location Description: shortness of breath, weakness Severity at the worst: reports: Severe Context-Pain started w/: reports: Exertion, Inspiration, Rest Duration: reports: Days: (3-4 days ago) Improved with: reports: Oxygen (lack of home oxygen), Home medication, Nothing Worsened by: reports: Exertion, Inspiration, Movement Associated symptoms: reports: Shortness of air, Nausea, Feeling faint / dizzy, General Weakness, Cough HPI Comment/Other: Pal Wise is an ill appearing 59-year-old male who looks older than what he appears with a complex medical history including metastatic adenocarcinoma of the lung with mets to the brain, status post gamma knife, hypertension, hyperlipidemia, coronary artery disease, peripheral vascular disease, osteomyelitis, COPD, seizure disorder, GERD, diverticulits, chronic constipation, BPH, central venous access to left chest, opiate dependence on oxycodone, ischemic peripheral disease, nonhealing ulcer to the right foot, anemia, current every day smoker/tobacco dependence, & medical noncompliance. Previously was seeing Dr. Jodee Castillo as primary hem/oncologist, now sees a Dr. Arellano at [facility]. EMS brought the patient in from home with a primary complaint of shortness of breath. Imaging showed a persistent right pleural effusion, and right mid lower lung opacity which was unchanged from 02/22/[address] Labs show severe hyponatremia with a sodium of 121, chloride of 81, BUN 5, normal creatinine of 0.8, GFR of 100, and an elevated BNP of 478 (the highest documented value, on 02/25/2019 it was 113). On my exam, the patient had tachypnea, has baseline orthopnea, had a charted oxygen saturation of 79% on room air (does not have home oxygen), massive skin edema (anasarca) noted to BLEs with very taught, shinny appearance to legs, slight scrotal edema, profound abdominal edema, dyspnea (above baseline) that persists despite several hours of waiting in the ED after IV lasix was given. Vital signs showed a heart rate of 99, light blood pressure of 101/71, respiratory rate 24, and a normal temperature of 36.6 C. The patient explained that his first symptoms began about 3 days ago in which he describes that "his lungs just start filling up with fluid like they always do". He states that his neck pain has been worse, his mucous has been increased, increased cough, increased sore throat, difficulty sleeping, poor appetite, and nausea without vomiting. He denies recent falls, increased dizziness, chest pain, confusion, bleeding, increased BLE pain or issues with infections. He states that he has told his PCP that he wishes to stop smoking, but she has not prescribed Chantix, of which he wishes to start while here. PMH/PSH - Past Medical History Cardiovascular: positive: Hypertension, High cholesterol, Coronary artery disease, Peripheral Vascular Disease, Murmur Respiratory: positive: COPD, Emphysema, Pneumonia, Shortness of breath, Other (orthopnea, chronic) Neuro: positive: Dementia, Headaches, Peripheral neuropathy, Seizure disorder, Other (status post craniotomy) Endocrine/Autoimmune: positive: None GI: positive: GERD, Chronic constipation, Diverticulitis, Other JEWELRY JOBBER: positive: None : positive: Benign prostate hypertrophy, Retention, Incontinence, Nocturia, Frequency HEENT: positive: Chronic vision loss, Chronic sinusitis Psych: positive: Depression, Anxiety Musculoskeletal: positive: Chronic back pain, Other Derm: positive: Other MRSA Hx?: No - Past Surgical History Ortho: positive: Amputation Cardiovascular: positive: Cardiac catheterization Neuro: positive: Craniotomy, Gamma knife Social & Family Hx - Living Situation Living Arrangement: At home Living Situation: Alone, With friend(s) - Social History Does the pt smoke?: Yes Smoking Status: Current every day smoker Does the pt drink ETOH?: Yes ETOH Use: Beer (3 beers per day) Does the pt have substance abuse?: No - POLST Patient has POLST: No POLST Status: Full Code - Family History Family History: Mother: , Father: Family History Comment/Other: Mother: Cancer, Father: Cancer, breathing Meds/Allgy - Home Medications Home Medications: Ambulatory Orders Medication Instructions Recorded Confirmed Lorazepam [Ativan] 1 mg PO Q8HR PRN 09/23/15 03/07/19 Tamsulosin [Flomax] 0.4 mg PO DAILY 06/29/16 03/07/19 Oxycodone HCl 10 - 20 mg PO Q4HR PRN MDD 8 tabs 07/26/17 03/07/19 Lidocaine Ointment 5% [Xylocaine 1 applic TOP PRN PRN 08/20/17 03/07/19 Ointment 5%] Gabapentin [Neurontin] 1,600 mg PO BID 09/27/17 03/07/19 Levetiracetam [Keppra] 500 mg PO BID #30 tablet 11/23/17 02/23/19 Ondansetron Odt [Zofran Odt] 4 mg TL Q6H PRN #15 tablet 03/19/18 03/07/19 Albuterol Sulf [Ventolin Hfa 2 puffs INH Q4HR PRN 05/09/18 03/07/19 Inhaler] Melatonin 3 - 6 mg PO QPM PRN 05/09/18 03/07/19 Nystatin 5 ml PO QID PRN 10/04/18 03/07/19 diphenhydrAMINE [Benadryl] 25 mg PO Q6HR PRN 10/04/18 03/07/19 Chlorhexidine Gluconate [Peridex] 15 ml PO DAILY PRN 12/18/18 03/07/19 Esomeprazole Magnesium [Nexium] 20 mg PO DAILY 12/18/18 03/07/19 Magnesium 250 mg PO BID 12/18/18 03/07/19 Oxycodone HCl [Oxycontin] 20 mg PO Q12H 12/18/18 03/07/19 Polyethylene Glycol 3350 [Miralax] 17 gm PO DAILY PRN 12/18/18 03/07/19 Budesonide/Formoterol Fumarate 2 puffs IH BID 12/20/18 03/07/19 [Symbicort 160-4.5 Mcg Inhaler] Montelukast [Singulair] 10 mg PO QPM #30 tablet 12/28/18 03/07/19 Spironolactone [Aldactone] 25 mg PO DAILY #30 tablet 12/28/18 03/07/19 Torsemide 20 mg PO DAILY 01/11/19 03/07/19 Ipratropium/Albuterol [Duoneb] 3 ml INH Q4HR PRN 02/15/19 03/07/19 Loperamide HCl [Loperamide] 2 mg PO QID PRN 02/23/19 03/07/19 Digoxin [Lanoxin] 125 mcg PO DAILY #10 tablet 02/25/19 03/07/19 Ferrous Sulfate 325 mg PO DAILY #15 tablet 02/25/19 Varenicline Tartrate [Chantix] 0.5 mg PO DAILY #11 tablet 03/07/19 Varenicline Tartrate [Chantix] 1 mg PO BID #60 tablet 03/07/19 - Allergies Allergies/Adverse Reactions: Allergies Allergy/AdvReac Type Severity Reaction Status Date / Time BRONWYN Inhibitors Allergy Emesis Verified 03/07/19 09:47 amoxicillin [From Augmentin] Allergy Emesis Verified 03/07/19 09:47 clavulanic acid Allergy Emesis Verified 03/07/19 09:47 [From Augmentin] lisinopril Allergy "THROAT Verified 03/07/19 09:47 SWELLING" Review of Systems - Constitutional Constitutional: reports: Fatigue, Weakness, Poor appetite - Eyes Eyes: reports: Blurred vision, Field loss, Vision loss - Ears, Nose & Throat Ears, Nose & Throat: reports: Postnasal drainage, Sore throat, Hoarseness - Cardiovascular Cariovascular: reports: Edema, Lightheadedness, Exertional dyspnea, Decr. exerci se tolerance, Orthopnea - Respiratory Respiratory: reports: Cough, Sputum production, Orthopnea, SOB at rest, SOB with exertion - Gastrointestinal Gastrointestinal: reports: Abdominal distention, Change in bowel habits, Nausea, Reflux/heartburn, Bloating, Poor appetite - Genitourinary Genitourinary: reports: Dysuria, Frequency, Incontinence, Nocturia - Musculoskeletal Musculoskeletal: reports: Muscle pain, Back pain, Muscle aches, Stiffness, Limited range of motion, Muscle weakness, Joint pain, Joint swelling - Integumentary Integumentary: reports: Pruritis (around "waist line"), Lesions, Dryness - Neurological Neurological: reports: General weakness, Memory problems, Pre-existing deficit, Abnormal gait, Seizures, Incoordination - Psychiatric Psychiatric: reports: Depression, Anxiety - Hematologic/Lymphatic Hematologic/Lymphatic: reports: Anemia, Recurrent infections - All Other Systems All Other Systems: reports: Reviewed and negative Prior Level of Functionality: Declining mobility, uses a walker, rents a room, orders food, does not prepare meals independently Exam - Vital Signs Reviewed Vital Signs: Yes Vital Signs: Vital Signs x48h Temp Pulse Resp BP Pulse Ox 03/07/19 12:14 81 12 105/62 92 03/07/19 10:25 87 17 98/69 92 03/07/19 10:10 89 22 94 03/07/19 10:09 88 24 79 L 03/07/19 09:42 36.6 C 99 22 101/71 85 L - Physical Exam General Appearance: positive: Alert, Mild distress, Anxious Eyes Bilateral: positive: PERRL, No lid inflammation ENT: positive: Pharyngeal erythema, Dry mucous membranes Neck: positive: Thyroid nml, No JVD, Stiff neck, Other (chronic neck deformity) Respiratory: positive: Chest non-tender, Wheezes, Rhonchi Cardiovascular: positive: No gallop, Irregularly irregular, Systolic murmur, Gallop/S3, Decreased pulse(s) Peripheral Pulses: positive: 1+ Abdomen: positive: Non-tender, Nml bowel sounds, Hepatomegaly, Mass (hernia), Other (obese, edema to abdomen, soft) Back: positive: Nml inspection Skin: positive: Color nml, No rash, Warm, Pallor Extremities: positive: Non-tender, Pedal edema (+2-3 pitting), Joint swelling Neurologic/Psychiatric: positive: Oriented x3, CN's nml (2-12), Weakness, Sensory loss, Slurred/abnml speech (baseline garbled speech), Depressed mood/affect Reflexes: Bicep (R): 2+, Bicep (L): 2+ Results - Lab Results Lab results reviewed: Yes Fish Bones: 03/07/19 10:19 03/07/19 10:19 Other Lab Results: Lab Results x24hrs 03/07/19 03/07/19 03/07/19 Range/Units 10:47 10:46 10:19 WBC (4.8-10.8) x10^3/uL RBC (4.70-6.10) 10^6/uL Hgb (14.0-18.0) g/dL Hct (42.0-52.0) % MCV (80.0-94.0) fL MCH (27.0-31.0) pg MCHC (32.0-36.0) g/dL RDW (12.0-15.0) % Plt Count (130-450) 10^3/uL MPV (7.4-11.4) fL Neut # (Auto) (1.5-6.6) 10^3/uL Lymph # (Auto) (1.5-3.5) 10^3/uL [place] # (Auto) (0.0-1.0) 10^3/uL Eos # (Auto) (0.0-0.7) 10^3/uL Baso # (Auto) (0.0-0.1) 10^3/uL Absolute Nucleated RBC x10^3/uL Nucleated RBC % /100WBC Sodium (135-145) mmol/L Potassium (3.5-5.0) mmol/L Chloride (101-111) mmol/L Carbon Dioxide (21-32) mmol/L Anion Gap (6-13) BUN (6-20) mg/dL Creatinine (0.6-1.2) mg/dL Estimated GFR (MDRD) (>89) Glucose (70-100) mg/dL Lactic Acid 2.1 (0.5-2.2) mmol/L Calcium (8.5-10.3) mg/dL Total Bilirubin (0.2-1.0) mg/dL AST (10-42) IU/L ALT (10-60) IU/L Alkaline Phosphatase (42-121) IU/L Troponin I High Sens (2.3-19.7) pg/mL B-Natriuretic Peptide 478 H (5-100) pg/mL Total Protein (6.7-8.2) g/dL Albumin (3.2-5.5) g/dL Globulin (2.1-4.2) g/dL Albumin/Globulin Ratio (1.0-2.2) Lipase (22-51) U/L Urine Color YELLOW Urine Clarity CLEAR (CLEAR) Urine pH 6.5 (5.0-7.5) PH Ur Specific [place] <=1.005 (1.002-1.030) Urine Protein NEGATIVE (NEGATIVE) mg/dL Urine Glucose (UA) NEGATIVE (NEGATIVE) mg/dL Urine Ketones NEGATIVE (NEGATIVE) mg/dL Urine Occult Blood MODERATE H (NEGATIVE) Urine Nitrite NEGATIVE (NEGATIVE) Urine Bilirubin NEGATIVE (NEGATIVE) Urine Urobilinogen 0.2 (NORMAL) (NORMAL) E.U./dL Ur Leukocyte Esterase NEGATIVE (NEGATIVE) Urine RBC 0-5 (0-5) /HPF Urine WBC 0-3 (0-3) /HPF Ur Squamous Epith Cells RARE Squamous (<= Few) Urine Bacteria Rare (None Seen) /HPF Ur Microscopic Review INDICATED Urine Culture Comments NOT INDICATED 03/07/19 03/07/19 03/07/19 Range/Units 10:19 10:19 10:19 WBC 6.4 (4.8-10.8) x10^3/uL RBC 4.02 L (4.70-6.10) 10^6/uL Hgb 10.8 L (14.0-18.0) g/dL Hct 32.8 L (42.0-52.0) % MCV 81.6 (80.0-94.0) fL MCH 26.9 L (27.0-31.0) pg MCHC 32.9 (32.0-36.0) g/dL RDW 17.2 H (12.0-15.0) % Plt Count 204 (130-450) 10^3/uL MPV 8.6 (7.4-11.4) fL Neut # (Auto) 4.8 (1.5-6.6) 10^3/uL Lymph # (Auto) 0.7 L (1.5-3.5) 10^3/uL [place] # (Auto) 0.6 (0.0-1.0) 10^3/uL Eos # (Auto) 0.2 (0.0-0.7) 10^3/uL Baso # (Auto) 0.0 (0.0-0.1) 10^3/uL Absolute Nucleated RBC 0.00 x10^3/uL Nucleated RBC % 0.0 /100WBC Sodium 121 L (135-145) mmol/L Potassium 3.6 (3.5-5.0) mmol/L Chloride 81 L (101-111) mmol/L Carbon Dioxide 27 (21-32) mmol/L Anion Gap 13.0 (6-13) BUN 5 L (6-20) mg/dL Creatinine 0.8 (0.6-1.2) mg/dL Estimated GFR (MDRD) 100 (>89) Glucose 106 H (70-100) mg/dL Lactic Acid (0.5-2.2) mmol/L Calcium 8.5 (8.5-10.3) mg/dL Total Bilirubin 0.6 (0.2-1.0) mg/dL AST 19 (10-42) IU/L ALT < 10 L (10-60) IU/L Alkaline Phosphatase 89 (42-121) IU/L Troponin I High Sens 6.4 (2.3-19.7) pg/mL B-Natriuretic Peptide (5-100) pg/mL Total Protein 6.8 (6.7-8.2) g/dL Albumin 3.3 (3.2-5.5) g/dL Globulin 3.5 (2.1-4.2) g/dL Albumin/Globulin Ratio 0.9 L (1.0-2.2) Lipase 20 L (22-51) U/L Urine Color Urine Clarity (CLEAR) Urine pH (5.0-7.5) PH Ur Specific [place] (1.002-1.030) Urine Protein (NEGATIVE) mg/dL Urine Glucose (UA) (NEGATIVE) mg/dL Urine Ketones (NEGATIVE) mg/dL Urine Occult Blood (NEGATIVE) Urine Nitrite (NEGATIVE) Urine Bilirubin (NEGATIVE) Urine Urobilinogen (NORMAL) E.U./dL Ur Leukocyte Esterase (NEGATIVE) Urine RBC (0-5) /HPF Urine WBC (0-3) /HPF Ur Squamous Epith Cells (<= Few) Urine Bacteria (None Seen) /HPF Ur Microscopic Review Urine Culture Comments CP/CHF Plan - Echo Plan to order an echo?: Yes - Plan Patient Problems: All Active Problems Congestive heart failure (Acute) Pleural effusion (Acute) Hyponatremia (Chronic) 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 (Acute) COPD (chronic obstructive pulmonary disease) (Acute) COPD with exacerbation (Acute) Cellulitis (Acute) Diarrhea (Acute) Foot ulcer, left (Acute) Generalized weakness (Acute) Hypokalemia (Acute) Hypoxia (Acute) Left-sided weakness (Acute) PVD (peripheral vascular disease) (Acute) Pneumonia (Acute) Rib fractures (Acute) Right foot ulcer (Acute) Seizure (Acute) Alcohol abuse (Chronic) Alcoholic cardiomyopathy (Chronic) Anemia (Chronic) BPH (benign prostatic hyperplasia) (Chronic) Brain cancer (Chronic) Brain metastases (Chronic) CKD (chronic kidney disease) stage 3, GFR 30-59 ml/min (Chronic) Cataract of both eyes (Chronic) Chest pain (Chronic) Chronic pain (Chronic) Chronic pain syndrome (Chronic) 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 (Chronic) 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 (Chronic) Cor pulmonale (Chronic) Dyspnea (Chronic) Fatty liver (Chronic) GERD (gastroesophageal reflux disease) (Chronic) Gait instability (Chronic) H/O tinea cruris (Chronic) Hereditary angioedema (Chronic) History of acute pharyngitis (Chronic) Left inguinal hernia (Chronic) Medical non-compliance (Chronic) Metastatic adenocarcinoma to lung (Chronic) Metastatic non-small cell lung cancer (Chronic) Nail dystrophy (Chronic) Obesity (BMI 30.0-34.9) (Chronic) Peripheral neuropathy (Chronic) Recurrent seizures (Chronic) Restless leg syndrome (Chronic) Thoracic back pain (Chronic) Thrombocytopenia (Chronic) Tobacco abuse (Chronic) Tobacco use disorder, continuous (Chronic) Plan: 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 -Recently hospitalized at [facility] from 02/22/2019-02/25/2019 for COPD/CHF exacerbations -Hospitalized at [facility] from 02/02 to 02/07/2019 with an exacerbation of acute combined congestive heart failure, was started on metoprolol -Patient states that he stopped this med due to low blood pressures in the past week -Diastolic dysfunction grade II from an echo dated 12/20/2018 -LVEF 60-65%, with mild concentric LVH in November 2018, down to 45% on 02/04/2019 -Home meds for medical guided therapy at home include; Spironolactone, torsemide, and digoxin was added -Chest x-ray showed a right pleural effusion (persistent) -Oxygen saturation was charted at 79% on room air in the ED, tachycardia with heart rate 99 -Started on IV Lasix, continued at 80 mg IV BID, holding home torsemide, continues on Spironolactone & digoxin -Severe electrolyte abnormalities with a sodium of 121 -BNP is at the highest ever documented at 478, negative troponin -Edema substantial, with +2-3 BLE edema, abdominal edema & slight scrotal edema Digoxin was started on 02/23 with an IV loading, which the patient states he has been - Keeping K+ at 4.0, Mag at 2.0 Plan: Continue daily weights, oxygen, trend cardiac biomarker of BNP, routine labs, ABG for changes in mental status, CXR if not improving, EKG for chest pain, routine labs, I/O, bladder scans if the patient allows, await new echo results Hyponatremia - Admission sodium was low at 121, considered severe - Most likely due to fluid overload, CHF exacerbation (intravascular hypervolemia) - Starting on loop IV diuretics - Echo is pending, ordered STAT Plan: Continue diuretics, transition to PO Lasix prior to discharge, routine labs, fluid restriction if patient is exceeding greater than 2L of free fluid per day Cor Pulmonale - Moderate RV, severe RA enlargement noted, RVSP of 52 mmHg - Likely exacerbated by lung cancer, tobacco use and untreated JEREMIAH - No current home oxygen use Plan: continue to support respiratory status, continue respiratory cares, provide oxygen to keep saturation greater than 90%, continue home meds, oxygen walking test prior to discharge to qualify for home O2, spironolactone and lasix COPD (chronic obstructive pulmonary disease) without exacerbation - Patient continues to smoke at home, and does not have home oxygen - Requests to be started on Chantix - Life long, >40 years - Known history of metastatic lung cancer - Takes Budesonide, formoterol fumarate, duo-nebs, and Singular at home - Productive cough on exam, chronic thrush - Continues to require 2-3L nasal cannula, no home O2 Plan: Continue to monitor, continue respiratory care, Budesonide, formeterol, duoneb, oxygen walking test prior to discharge, monitor for exacerbation PVD (peripheral vascular disease) - Recurrent wounds, status post left toe amputation (middle 3 toes) - Gabapentin, chronic narcotic use, magnesium, chronic edema from Cor Pulmonale - Cilostazol (Pletal) is contraindicated given his worsening EF Plan: Continue to treat CHF treatment, elevate feet, treat pain with IV dilaudid as needed Chronic foot ulcers - Sees Jigar Matthews, wound care outpatient - Status post osteo to BLEs - Jigar was called by me who will call the nursing unit for specific wound care orders for this weekend, if the patient is still in the hospital on Sunday, then she may see him Plan: Continue to elevate BLEs when able, follow wound care instructions, monitor for infection BPH - History of urinary retention, exacerbated by untreated scrotal hernia which causes compression & BPH - Takes Flomax at home, continued her - Orders for an indwelling santos, with a Uro-jet prior to use insertion Plan: Maintain indwelling santos for retention Urinary retention - Noted on prior hospitalization, but patient had refused a santos in the past, "they hurt too much" - Since patient will be getting high dose diuretics and remains profoundly short of breath, orders to insert a santos - Uro-jet prior to insertion for comfort Plan: Maintain santos, plan for removal on day #2 Chronic pain syndrome -Due to chronic PVD, recurrent BLE wounds -Takes oxycodone, OxyContin and gabapentin for this - Decreased mobility, likely from worsening CHF - Prescribed 3200 mg of gabapentin per day Plan: Continue oxycodone, resume long acting oxycontin, monitor for improvement 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, status post gamma knife - Consequently has recurrent seizures of which he takes Keppra Plan: Continue Keppra, monitor for seizures, seizure precautions Seizure disorder -Likely due to craniotomy to remove tumors from metastatic disease -Takes Keppra at home, to be continued here -No recent known seizures -Had a witnessed episode while a patient in the [facility] wound clinic in which he slumped forward, and lost a pulse. Consequently, CPR was performed which caused rib fractures Plan: Continue Keppra, obtain serum trough in the AM Metastatic non-small cell lung cancer - Has a port a cath over the SVC since his chemo treatment- accessed today to be used for IV meds, and blood draws - Status post chemo - No reports of bloody sputum - Dependent on home O2 based on this diagnosis and Cor pulmonale - Continues to smoke, + for amphetamines, yellow stained hair/nails Plan: Continue to monitor, continue respiratory care Alcohol abuse - Patient states that he has cut down recently - Also with a seizure disorder from his brain mets/gamma knife treatments - No s/s of withdrawal, no indication to check alcohol serum level - Patient has admitted to Palliative care that he casually drinks "about 3 beers per day" Plan: Continue to monitor, encourage cessation, monitor LFTs Tobacco dependence - Patient has a 40 PPD history and states he has been attempting to quit, but at his last PCP clinic appointment, Chantix was not talked about - Chantix 0.5 mg daily from day 1-3, then 0.5 mg BID days 4-7, then 1 mg daily there after has been sent to the pharmacy to prepare for discharge Plan: Continue to encourage cessation, offer nicotine patch if needed Depression -High dose narcotics, gabapentin, benzodiazepines limits indications for medical management of mood stabilizers or anti-depressants Plan: Offer support, social work consult, Palliative care consult if needed Visual impairment - From cataracts, unmanaged vascular disease, alcohol, drug abuse - Limits his ability to manage medications, leading to more hospital stays - Suzan caregivers help, but the patient "fires" caregivers at times and his room that he rents can be a little unkept and creepy at times Plan: Social work consult to increase Suzan hours, explain to the patient with medication changes, etc. Inadequate social support -Palliative care, Kari Thornton sees outpatient -Patient lives in an apartment in [facility] -Caregivers per SUZAN, they are assisting him with bathing, some meal prep -Transportation, and overseeing the complexity of his care and appointments cont inue to be troublesome -Poor vision limits independence -Has a person of whom he rents a room from, drug use, noncompliance Plan: Continue to support Medical non-compliance - On previous admission, the patient was found with dried feces in groin and legs, lacks appropriate hygiene, no mention of this for this hospital stay, but patient appears generally unkept - Continues to use alcohol, use tobacco, and requires high dose gabapentin, oxy, and oxycontin - Chantix loading dose and maintenance dose sent to [facility], since the patient has requested to stop smoking with the help of Chantix Plan: Continue to acute exacerbation, encourage compliance Core Measures - Anticipated LOS I expect patient to be DC'd or transferred within 96 hours.: Yes - DVT/VTE - Prophylaxis VTE/DVT Device ordered at admit?: Yes VTE/DVT Prophylaxis med ordered at admit?: Yes - Stroke - Rehab Assessment Rehab services assessment to be ordered?: Yes - AMI - Statin at Admit Aspirin Prescribed on Admit: Yes
[2019-03-07] MEDS ORDERED: FUROSEMIDE 100 MG/10 ML VIAL IVP SCH (15:00)
[2019-03-07] MEDS ORDERED: LIDOCAINE 2% URO-JET 5 ML SYRINGE UR PRN ×2 (15:11→15:14)
[2019-03-07] MEDS ORDERED: OXYBUTYNIN 5MG TABLET PO PRN (15:50)
[2019-03-07] MEDS ORDERED: diphenhydrAMINE 25 MG CAPSULE PO PRN (15:50)
[2019-03-07] MEDS ORDERED: LIDOCAINE OINTMENT 5% 35.44 GM TUBE TOP PRN (15:50)
[2019-03-07] MEDS ORDERED: IPRATROPIUM/ALBUTEROL 3 ML NEB INH PRN (15:50)
[2019-03-07] MEDS ORDERED: CHLORHEXIDINE GLUCONATE 15 ML UDC PO PRN (15:50)
[2019-03-07] MEDS ORDERED: LOPERAMIDE 2 MG CAPSULE PO PRN (16:12)
[2019-03-07] MEDS: DIGOXIN 125 MCG TABLET PO SCH (16:59)
[2019-03-07] MEDS: ONDANSETRON ODT 4 MG TABLET TL PRN (17:00)
[2019-03-07] MEDS: HYDROmorphone 1 MG/ML CARPUJECT IVP PRN ×2 (17:00→20:11)
[2019-03-07] MEDS: SODIUM CHLORIDE FLUSH 0.9% 10 ML SYRINGE IVP SCH (17:01)
[2019-03-07] MEDS: LORazepam 1 MG TABLET PO PRN (19:44)
[2019-03-07] MEDS: ENOXAPARIN 40 MG/0.4 ML SYRINGE SUBQ SCH (19:44)
[2019-03-07] MEDS: BENZOCAINE/MENTHOL LOZENGE MM PRN (19:44)
[2019-03-07] MEDS: SPIRONOLACTONE 25 MG TABLET PO SCH (19:45)
[2019-03-07] MEDS: FUROSEMIDE INJ 100mg VIAL 80 MG in SODIUM CHLORIDE 0.9% 50 ML IVP SCH (19:45)
[2019-03-07] MEDS: oxyCODONE 5 MG TABLET PO SCH (20:07)
[2019-03-07] MEDS: MONTELUKAST 10 MG TABLET PO SCH (20:54)
[2019-03-07] MEDS: GABAPENTIN 400 MG CAPSULE PO SCH (20:54)
[2019-03-07] MEDS: levETIRAcetam 250 MG TABLET PO SCH (20:54)
[2019-03-07] MEDS ORDERED: MELATONIN 6 MG PO PRN (21:00)
[2019-03-08] MEDS: HYDROmorphone 1 MG/ML CARPUJECT IVP PRN ×5 (00:04→23:57)
[2019-03-08 02:14] LABS: MUDS CUTOFF CONCENTRATIONS CUTOFF CONC BELOW:
[2019-03-08 02:30] LABS: AMPHETAMINE SCREEN,URINE NEGATIVE (NEGATIVE); BENZODIAZEPINES SCREEN, URINE POSITIVE (NEGATIVE); COCAINE SCREEN URINE NEGATIVE (NEGATIVE); METHAMPHETAMINES SCREEN, URINE NEGATIVE (NEGATIVE); OPIATE SCREEN, URINE POSITIVE (NEGATIVE)
[2019-03-08 02:31] LABS: METHADONE SCREEN, URINE NEGATIVE (NEGATIVE); OXYCODONE SCREEN, URINE POSITIVE (NEGATIVE); PROPOXYPHENE SCREEN, URINE NEGATIVE (NEGATIVE); TRICYCLIC ANTIDEPRESSANT,URINE NEGATIVE (NEGATIVE)
[2019-03-08] MEDS: oxyCODONE 5 MG TABLET PO SCH ×2 (04:29→16:09)
[2019-03-08 04:40] LABS: BASOPHILS # (AUTO) 0.1 10^3/uL (0.0-0.1); BASOPHILS % (AUTO) 0.9 %; EOSINOPHILS # (AUTO) 0.5 10^3/uL (0.0-0.7); EOSINOPHILS % (AUTO) 8.9 %; HGB - HEMOGLOBIN 10.4 g/dL (14.0-18.0); LYMPHOCYTES # (AUTO) 0.8 10^3/uL (1.5-3.5); LYMPHOCYTES % (AUTO) 15.6 %; MEAN CORPUSCULAR HEMOGLOBIN 26.3 pg (27.0-31.0); MEAN CORPUSCULAR HGB CONC 32.8 g/dL (32.0-36.0); MEAN CORPUSCULAR VOLUME 80.1 fL (80.0-94.0); MEAN PLATELET VOLUME 8.9 fL (7.4-11.4); MONOCYTES # (AUTO) 0.7 10^3/uL (0.0-1.0); MONOCYTES % (AUTO) 13.3 %; NEUTROPHILS # (AUTO) 3.2 10^3/uL (1.5-6.6); NEUTROPHILS % (AUTO) 60.9 %; PLT - PLATELET COUNT 209 10^3/uL (130-450); RED BLOOD COUNT 3.96 10^6/uL (4.70-6.10); RED CELL DISTRIBUTION WIDTH 17.2 % (12.0-15.0); WHITE BLOOD COUNT 5.3 x10^3/uL (4.8-10.8)
[2019-03-08] MEDS: ONDANSETRON ODT 4 MG TABLET TL PRN ×2 (04:43→10:02)
[2019-03-08] MEDS: NYSTATIN 500000 UNITS/5 ML UDC PO PRN ×3 (04:52→20:04)
[2019-03-08 04:56] LABS: HB2 TOTAL 10.9 g/dL; HEMOGLOBIN A1C 0.44 g/dL; HEMOGLOBIN A1C % 5.8 % (4.6-6.2)
[2019-03-08 05:05] LABS: ALBUMIN 3.1 g/dL (3.2-5.5); ALKALINE PHOSPHATASE 84 IU/L (42-121); ALT ALANINE AMINOTRANSFERASE < 10 IU/L (10-60); AST ASPARTATE AMINOTRANSFERASE 16 IU/L (10-42); BILIRUBIN,TOTAL 0.8 mg/dL (0.2-1.0); BUN - BLOOD UREA NITROGEN 6 mg/dL (6-20); CALCIUM 8.4 mg/dL (8.5-10.3); CARBON DIOXIDE - CO2 30 mmol/L (21-32); CHLORIDE 87 mmol/L (101-111); CREATININE 0.8 mg/dL (0.6-1.2); GFR - MDRD 100 (>89); GLUCOSE 100 mg/dL (70-100); SODIUM 128 mmol/L (135-145); TOTAL PROTEIN 6.3 g/dL (6.7-8.2)
[2019-03-08 05:09] LABS: DIGOXIN 0.4 ng/mL
[2019-03-08] MEDS: FUROSEMIDE INJ 100mg VIAL 80 MG in SODIUM CHLORIDE 0.9% 50 ML IVP SCH ×2 (05:25→15:03)
[2019-03-08] MEDS: SODIUM CHLORIDE FLUSH 0.9% 10 ML SYRINGE IVP SCH ×4 (05:36→23:58)
[2019-03-08] MEDS: PANTOPRAZOLE 40 MG TABLET PO SCH (06:19)
[2019-03-08] MEDS ORDERED: POTASSIUM CHLORIDE 20 MEQ TABLET PO SCH (08:23)
[2019-03-08] MEDS ORDERED: ALBUTEROL NEB 2.5 MG/3 ML INH PRN (08:56)
[2019-03-08] MEDS ORDERED: POLYETHYLENE GLYCOL 3350 17 GM PACKET PO SCH (09:00)
[2019-03-08] MEDS: TAMSULOSIN 0.4 MG CAPSULE PO SCH (09:18)
[2019-03-08] MEDS: DIGOXIN 125 MCG TABLET PO SCH (09:18)
[2019-03-08] MEDS: SPIRONOLACTONE 25 MG TABLET PO SCH ×2 (09:25→17:38)
[2019-03-08] MEDS: GABAPENTIN 400 MG CAPSULE PO SCH ×2 (09:25→20:53)
[2019-03-08] MEDS: levETIRAcetam 250 MG TABLET PO SCH ×2 (09:26→20:52)
[2019-03-08] MEDS: ENOXAPARIN 40 MG/0.4 ML SYRINGE SUBQ SCH (09:26)
[2019-03-08] MEDS: BENZOCAINE/MENTHOL LOZENGE MM PRN (11:07)
--- NOTE | 2019-03-08 13:49 | PROVIDER PROGRESS NOTE ---
Subjective - Subjective Pt reports feeling: Improved Subjective: pt report he felt better and breath better. he denies headache, chest pain, fever, chill. Current Medications - Current Medications Current Medications: Active Medications Albuterol () 2.5 mg INH RTQ4H PRN PRN Reason: Wheezing Albuterol/Ipratropium (Duoneb) 3 ml INH RTQ4H PRN PRN Reason: SHORTNESS OF AIR/WHEEZING Chlorhexidine Gluconate (Peridex) 15 ml PO DAILY PRN PRN Reason: THRUSH Last Admin: 03/08/19 11:11 Dose: 15 ml Digoxin (Lanoxin) 125 mcg PO DAILY [facility] Last Admin: 03/08/19 09:18 Dose: 125 mcg Diphenhydramine HCl (Benadryl) 25 mg PO Q6HR PRN PRN Reason: ITCHING Enoxaparin Sodium (Lovenox) 40 mg SUBQ DAILY [facility] Last Admin: 03/08/19 09:26 Dose: Not Given Gabapentin (Neurontin) 1,600 mg PO BID [facility] Last Admin: 03/08/19 09:25 Dose: 1,600 mg Hydromorphone HCl (Dilaudid Inj Carp) 1 mg IVP Q2HR PRN PRN Reason: PAIN Last Admin: 03/08/19 09:26 Dose: 1 mg Furosemide 80 mg/ Sodium (Chloride) 58 mls @ 232 mls/hr IVP BIDDIURETIC [facility] Last Admin: 03/08/19 05:25 Dose: 232 mls/hr Levetiracetam (Keppra) 500 mg PO BID [facility] Last Admin: 03/08/19 09:26 Dose: 500 mg Lidocaine (Xylocaine Ointment 5%) 1 applic TOP PRN PRN PRN Reason: PAIN Lidocaine HCl (Xylocaine Uro-Jet 2%) 2.5 ml UR Q6H PRN PRN Reason: PAIN Last Admin: 03/07/19 20:18 Dose: 2.5 ml Loperamide HCl (Imodium) 2 mg PO QID PRN PRN Reason: LOOSE STOOLS Last Admin: 03/07/19 17:00 Dose: 2 mg Lorazepam (Ativan) 1 mg PO Q8HR PRN PRN Reason: Anxiety Last Admin: 03/07/19 19:44 Dose: 1 mg Montelukast Sodium (Singulair) 10 mg PO QPM [facility] Last Admin: 03/07/19 20:54 Dose: 10 mg Nystatin (Mycostatin) 5 ml PO QID PRN PRN Reason: THRUSH Last Admin: 03/08/19 11:17 Dose: 5 ml Ondansetron HCl (Zofran Odt) 4 mg TL Q6H PRN PRN Reason: Nausea / Vomiting Last Admin: 03/08/19 10:02 Dose: 4 mg Oxybutynin Chloride (Ditropan) 20 mg PO Q4HR PRN PRN Reason: PAIN Oxycodone HCl (Roxicodone) 20 mg PO Q12H [facility] Last Admin: 03/08/19 04:29 Dose: 20 mg Pantoprazole Sodium (Protonix) 40 mg PO QDAC [facility] Last Admin: 03/08/19 06:19 Dose: 40 mg Patient Own Med ( Melatonin [Melatonin ] 6 Mg) 1 each PO QPM PRN PRN Reason: Insomnia Sodium Chloride (Normal Saline Flush 0.9%) 10 ml IVP PRN PRN PRN Reason: NEEDED PER PROVIDER ORDERS Sodium Chloride (Normal Saline Flush 0.9%) 10 ml IVP 0100,0900,1700 [facility] Last Admin: 03/08/19 09:27 Dose: 10 ml Spironolactone (Aldactone) 25 mg PO BIDWM [facility] Last Admin: 03/08/19 09:25 Dose: 25 mg Tamsulosin HCl (Flomax) 0.4 mg PO DAILY [facility] Last Admin: 03/08/19 09:18 Dose: 0.4 mg Throat Lozenges (Cepacol) 1 lozenge MM Q2HR PRN PRN Reason: Throat pain Last Admin: 03/08/19 11:07 Dose: 1 lozenge Lorazepam [Ativan] 1 mg PO Q8HR PRN 09/23/15 Tamsulosin [Flomax] 0.4 mg PO DAILY 06/29/16 Oxycodone HCl 10 - 20 mg PO Q4HR PRN MDD 8 tabs 07/26/17 Lidocaine Ointment 5% [Xylocaine Ointment 5%] 1 applic TOP PRN PRN 08/20/17 Gabapentin [Neurontin] 1,600 mg PO BID 09/27/17 Albuterol Sulf [Ventolin Hfa Inhaler] 2 puffs INH Q4HR PRN 05/09/18 Melatonin 3 - 6 mg PO QPM PRN 05/09/18 Nystatin 5 ml PO QID PRN 10/04/18 diphenhydrAMINE [Benadryl] 25 mg PO Q6HR PRN 10/04/18 Chlorhexidine Gluconate [Peridex] 15 ml PO DAILY PRN 12/18/18 Esomeprazole Magnesium [Nexium] 20 mg PO DAILY 12/18/18 Magnesium 250 mg PO BID 12/18/18 Oxycodone HCl [Oxycontin] 20 mg PO Q12H 12/18/18 Polyethylene Glycol 3350 [Miralax] 17 gm PO DAILY PRN 12/18/18 Budesonide/Formoterol Fumarate [Symbicort 160-4.5 Mcg Inhaler] 2 puffs IH BID 12/20/18 Torsemide 20 mg PO DAILY 01/11/19 Ipratropium/Albuterol [Duoneb] 3 ml INH Q4HR PRN 02/15/19 Loperamide HCl [Loperamide] 2 mg PO QID PRN 02/23/19 Objective - Vital Signs/Intake & Output Reviewed Vital Signs: Yes Vital Signs: Vital Signs x48h Temp Pulse Pulse Resp BP BP 03/08/19 11:00 90/68 03/08/19 10:19 100 85/47 L 03/08/19 08:19 36.8 C 74 15 101/56 L Intake & Output: Intake & Output 03/05/19 03/06/19 03/07/19 03/08/19 23:59 23:59 23:59 23:59 Intake Total 1000 590 Output Total 4925 1050 Balance -3925 -460 - Objective General Appearance: positive: No acute distress, Alert. negative: Lethargic Eyes Bilateral: positive: Normal inspection, PERRL, No lid inflammation, Conjunctivae nml ENT: positive: ENT inspection nml, Pharynx nml, No signs of dehydration. negative: Purulent nasal drainage, Pharyngeal erythema, Oral lesions Neck: positive: Nml inspection, Thyroid nml, No JVD, Trachea midline. negative: Thyromegaly, Lymphadenopathy (R), Lymphadenopathy (L), Stiff neck, Swelling/bruising, Tracheal deviation Respiratory: positive: Chest non-tender, No respiratory distress. negative: Wheezes, Rales, Rhonchi Cardiovascular: positive: Regular rate & rhythm, No murmur, No gallop. negative: Irregularly irregular, Extrasystoles, Tachycardia, Bradycardia, JVD present, Systolic murmur, Diastolic murmur Peripheral Pulses: 2+ Radial (R), 2+ Radial (L), 2+ Dorsalis pedis (R), 2+ Dorsalis pedis (L) Abdomen: positive: Non-tender, No organomegaly, Nml bowel sounds, No distention. negative: Tenderness, Guarding, Rebound Back: positive: Nml inspection. negative: CVA tenderness (R), CVA tenderness (L) Skin: positive: Color nml, No rash, Warm, Dry. negative: Cyanosis, Diaphoresis, Pallor Extremities: positive: Non-tender. negative: Calf tenderness, Joint swelling, Abhijit's sign/cords Neurologic/Psychiatric: positive: Oriented x3, Sensation nml, Mood/affect nml. negative: Weakness, Sensory loss, Facial droop, Slurred/abnml speech, Depressed mood/affect - Lab Results Fish Bones: 03/08/19 04:15 03/08/19 04:15 Other Labs: Lab Results x24hrs 03/08/19 03/08/19 03/08/19 Range/Units 04:15 04:15 04:15 WBC (4.8-10.8) x10^3/uL RBC (4.70-6.10) 10^6/uL Hgb (14.0-18.0) g/dL Hct (42.0-52.0) % MCV (80.0-94.0) fL MCH (27.0-31.0) pg MCHC (32.0-36.0) g/dL RDW (12.0-15.0) % Plt Count (130-450) 10^3/uL MPV (7.4-11.4) fL Neut # (Auto) (1.5-6.6) 10^3/uL Lymph # (Auto) (1.5-3.5) 10^3/uL [place] # (Auto) (0.0-1.0) 10^3/uL Eos # (Auto) (0.0-0.7) 10^3/uL Baso # (Auto) (0.0-0.1) 10^3/uL Absolute Nucleated RBC x10^3/uL Nucleated RBC % /100WBC Sodium 128 L (135-145) mmol/L Potassium 3.4 L (3.5-5.0) mmol/L Chloride 87 L (101-111) mmol/L Carbon Dioxide 30 (21-32) mmol/L Anion Gap 11.0 (6-13) BUN 6 (6-20) mg/dL Creatinine 0.8 (0.6-1.2) mg/dL Estimated GFR (MDRD) 100 (>89) Glucose 100 (70-100) mg/dL Glycated Hemoglobin (4.6-6.2) % Estim Average Glucose (70-100) Calcium 8.4 L (8.5-10.3) mg/dL Magnesium 2.0 (1.7-2.8) mg/dL Total Bilirubin 0.8 (0.2-1.0) mg/dL AST 16 (10-42) IU/L ALT < 10 L (10-60) IU/L Alkaline Phosphatase 84 (42-121) IU/L B-Natriuretic Peptide 329 H (5-100) pg/mL Total Protein 6.3 L (6.7-8.2) g/dL Albumin 3.1 L (3.2-5.5) g/dL Globulin 3.2 (2.1-4.2) g/dL Albumin/Globulin Ratio 1.0 (1.0-2.2) Last Dose Date 03/07/19 Last Dose Time 1659 Digoxin 0.4 ng/mL Urine Opiates Screen (NEGATIVE) Ur Oxycodone Screen (NEGATIVE) Urine Methadone Screen (NEGATIVE) Ur Propoxyphene Screen (NEGATIVE) Ur Barbiturates Screen (NEGATIVE) Ur Tricyclics Screen (NEGATIVE) Ur Phencyclidine Scrn (NEGATIVE) Ur Amphetamine Screen (NEGATIVE) U Methamphetamines Scrn (NEGATIVE) U Benzodiazepines Scrn (NEGATIVE) Urine Cocaine Screen (NEGATIVE) U Cannabinoids Screen (NEGATIVE) 03/08/19 03/08/19 03/08/19 Range/Units 04:15 04:15 00:45 WBC 5.3 (4.8-10.8) x10^3/uL RBC 3.96 L (4.70-6.10) 10^6/uL Hgb 10.4 L (14.0-18.0) g/dL Hct 31.7 L (42.0-52.0) % MCV 80.1 (80.0-94.0) fL MCH 26.3 L (27.0-31.0) pg MCHC 32.8 (32.0-36.0) g/dL RDW 17.2 H (12.0-15.0) % Plt Count 209 (130-450) 10^3/uL MPV 8.9 (7.4-11.4) fL Neut # (Auto) 3.2 (1.5-6.6) 10^3/uL Lymph # (Auto) 0.8 L (1.5-3.5) 10^3/uL [place] # (Auto) 0.7 (0.0-1.0) 10^3/uL Eos # (Auto) 0.5 (0.0-0.7) 10^3/uL Baso # (Auto) 0.1 (0.0-0.1) 10^3/uL Absolute Nucleated RBC 0.00 x10^3/uL Nucleated RBC % 0.0 /100WBC Sodium (135-145) mmol/L Potassium (3.5-5.0) mmol/L Chloride (101-111) mmol/L Carbon Dioxide (21-32) mmol/L Anion Gap (6-13) BUN (6-20) mg/dL Creatinine (0.6-1.2) mg/dL Estimated GFR (MDRD) (>89) Glucose (70-100) mg/dL Glycated Hemoglobin 5.8 (4.6-6.2) % Estim Average Glucose 120 H (70-100) Calcium (8.5-10.3) mg/dL Magnesium (1.7-2.8) mg/dL Total Bilirubin (0.2-1.0) mg/dL AST (10-42) IU/L ALT (10-60) IU/L Alkaline Phosphatase (42-121) IU/L B-Natriuretic Peptide (5-100) pg/mL Total Protein (6.7-8.2) g/dL Albumin (3.2-5.5) g/dL Globulin (2.1-4.2) g/dL Albumin/Globulin Ratio (1.0-2.2) Last Dose Date Last Dose Time Digoxin ng/mL Urine Opiates Screen POSITIVE H (NEGATIVE) Ur Oxycodone Screen POSITIVE H (NEGATIVE) Urine Methadone Screen NEGATIVE (NEGATIVE) Ur Propoxyphene Screen NEGATIVE (NEGATIVE) Ur Barbiturates Screen NEGATIVE (NEGATIVE) Ur Tricyclics Screen NEGATIVE (NEGATIVE) Ur Phencyclidine Scrn NEGATIVE (NEGATIVE) Ur Amphetamine Screen NEGATIVE (NEGATIVE) U Methamphetamines Scrn NEGATIVE (NEGATIVE) U Benzodiazepines Scrn POSITIVE H (NEGATIVE) Urine Cocaine Screen NEGATIVE (NEGATIVE) U Cannabinoids Screen NEGATIVE (NEGATIVE) ABX Reporting Has patient been on IV antibiotics over the past 48 hours?: No Sepsis Event Note (H) - Evaluation Current Stage of Sepsis: Ruled out Assessment/Plan - Problem List (1) Diastolic heart failure with preserved ejection fraction Impression: 03/08 improved. pt report he felt his breath better. it was likely caused by combinations of pt's prior alcohol abuse, tobacco abuse, medical non-compliance, hx of cancer. according to recent twice ECHO, pt has 60-65% EF without regional wall motion abnormality, but increase RSVP to 79mmhg and severe abnormal right heart pressure. pt present full overload, and increase bilateral leg edemal, and BNP. continue IV of Lasix daily lab monitor. vital monitor, special monitor pt's BP to see if pt can tolerate diuretics continue daily weight, fluid restriction, regular diet without reduced of sodium now because of pt's sodium is low Hyponatremia 03/08 improved. Na is 128 from 121 in admission. pt has hx of hyponatremia. it is likely hypervolume with hyponatremia continue diuretics continue lab monitor COPD (chronic obstructive pulmonary disease) without exacerbation 03/08 stable, pt is still current cigarette smoker. pt has hx of COPD continue O2 supplement as needed continue albuterol and Duoneb as needed PVD (peripheral vascular disease) stable, pt present Recurrent wounds, status post left toe amputation (middle 3 toes) continue wound care in [facility] clinic advise pt cease cigarette smoking Chronic foot ulcers stable, consulted with wound care provider, will followup continue elevate lower extremities, monitor infection BPH History of urinary retention, continue Flomax. pt has lower BP, will consider add Proscar if pt can tolerate pt has Santos now, will try off Santos to see pt can urinate by himself. Urinary retention pt was Noted on his hx of prior hospitalization, but patient had refused a santos in the past, "they hurt too much" pt had difficult to urinate and Since patient will be getting high dose diuretics and remains profoundly short of breath, orders to insert a santos plan to remove Santos on tomorrow, and monitor pt if he can urinate by himself monitor I&O Chronic pain syndrome chronic, continue home pain regimen Brain cancer stable AMS, pt denies headache. Status post craniotomy in 2017, status post gamma knife continue seizures meds Seizure disorder stable, pt has no seizure in hospital. it was Likely due to craniotomy to remove tumors from metastatic disease continue Takes Keppra seizure precaution Metastatic non-small cell lung cancer stable, Status post chemotherapy continue support, supplement O2 as needed Alcohol abuse pt has hx of alcohol abuse Patient states that he has cut down recently advise pt reduce and cease alcohol intake Tobacco dependence pt has chantix order, encourage pt quit tobacco abuse Depression stable. continue home meds Visual impairment stable, consult drug abuse social worker for safety discharge Inadequate social support continue support, consult with drug abuse social worker Medical non-compliance pt continue medical non-compliance. pt report he took his potassium dosage and lasix dosage by himself's need, not according to provider's instructions. advise followup medical recommendations. weakness pt present profound weakness, consult with PT/OT, followup recommendations.
--- NOTE | 2019-03-08 13:53 | Ultrasound Report ---
Reason: new acute urinary retention Procedure Date: 03/08/2019 Accession Number: [id number] / [id number] Procedure: US - Retroperitoneal Limited CPT Code: FULL RESULT: EXAM: PELVIS ULTRASOUND, LIMITED EXAM DATE: 03/08/2019 11:52 AM. CLINICAL HISTORY: New acute urinary retention. Patient has Zapata catheter. COMPARISON: ABDOMEN/PELVIS W/ 11/05/2018 2:05 PM. TECHNIQUE: Real-time scanning was performed with static images obtained. FINDINGS IMPRESSION: The urinary bladder is mostly decompressed, limiting evaluation. A Zapata catheter balloon is within the bladder lumen. Bladder volume measures approximately 30 cc. RADIA
[2019-03-08] MEDS: LORazepam 1 MG TABLET PO PRN (17:27)
[2019-03-08] MEDS: IPRATROPIUM/ALBUTEROL 3 ML NEB INH PRN (19:52)
[2019-03-08] MEDS: guaiFENesin 600 MG TABLET PO SCH (20:53)
[2019-03-08] MEDS: MONTELUKAST 10 MG TABLET PO SCH (20:53)
[2019-03-09] MEDS: BENZOCAINE/MENTHOL LOZENGE MM PRN ×2 (00:20→20:30)
[2019-03-09] MEDS: oxyCODONE 5 MG TABLET PO SCH ×2 (04:56→16:28)
[2019-03-09] MEDS: SODIUM CHLORIDE FLUSH 0.9% 10 ML SYRINGE IVP PRN ×6 (04:59→22:34)
[2019-03-09 05:17] LABS: BASOPHILS % (AUTO) 0.7 %; EOSINOPHILS # (AUTO) 0.5 10^3/uL (0.0-0.7); EOSINOPHILS % (AUTO) 9.8 %; HGB - HEMOGLOBIN 10.4 g/dL (14.0-18.0); LYMPHOCYTES # (AUTO) 1.1 10^3/uL (1.5-3.5); LYMPHOCYTES % (AUTO) 19.2 %; MEAN CORPUSCULAR HEMOGLOBIN 25.7 pg (27.0-31.0); MEAN CORPUSCULAR HGB CONC 31.1 g/dL (32.0-36.0); MEAN CORPUSCULAR VOLUME 82.7 fL (80.0-94.0); MEAN PLATELET VOLUME 8.5 fL (7.4-11.4); MONOCYTES # (AUTO) 0.7 10^3/uL (0.0-1.0); NEUTROPHILS # (AUTO) 3.2 10^3/uL (1.5-6.6); NEUTROPHILS % (AUTO) 57.9 %; PLT - PLATELET COUNT 187 10^3/uL (130-450); RED BLOOD COUNT 4.04 10^6/uL (4.70-6.10); RED CELL DISTRIBUTION WIDTH 17.8 % (12.0-15.0); WHITE BLOOD COUNT 5.5 x10^3/uL (4.8-10.8)
[2019-03-09 05:29] LABS: ALBUMIN 3.1 g/dL (3.2-5.5); ALKALINE PHOSPHATASE 80 IU/L (42-121); ALT ALANINE AMINOTRANSFERASE < 10 IU/L (10-60); AST ASPARTATE AMINOTRANSFERASE 14 IU/L (10-42); BILIRUBIN,TOTAL 0.4 mg/dL (0.2-1.0); BUN - BLOOD UREA NITROGEN 6 mg/dL (6-20); CALCIUM 8.7 mg/dL (8.5-10.3); CARBON DIOXIDE - CO2 31 mmol/L (21-32); CHLORIDE 92 mmol/L (101-111); CREATININE 0.9 mg/dL (0.6-1.2); GFR - MDRD 87 (>89); GLUCOSE 107 mg/dL (70-100); SODIUM 132 mmol/L (135-145); TOTAL PROTEIN 6.3 g/dL (6.7-8.2)
[2019-03-09] MEDS: FUROSEMIDE INJ 100mg VIAL 80 MG in SODIUM CHLORIDE 0.9% 50 ML IVP SCH ×2 (06:12→14:10)
[2019-03-09] MEDS: PANTOPRAZOLE 40 MG TABLET PO SCH (06:12)
[2019-03-09] MEDS: IPRATROPIUM/ALBUTEROL 3 ML NEB INH PRN ×2 (07:50→15:45)
[2019-03-09] MEDS: GABAPENTIN 400 MG CAPSULE PO SCH ×2 (08:18→20:57)
[2019-03-09] MEDS: DOCUSATE SODIUM 250 MG CAPSULE PO SCH (08:18)
[2019-03-09] MEDS: guaiFENesin 600 MG TABLET PO SCH ×2 (08:19→20:57)
[2019-03-09] MEDS: SPIRONOLACTONE 25 MG TABLET PO SCH ×2 (08:19→16:29)
[2019-03-09] MEDS: levETIRAcetam 250 MG TABLET PO SCH ×2 (08:19→20:58)
[2019-03-09] MEDS: SENNA 8.6 MG TABLET PO SCH (08:19)
[2019-03-09] MEDS: TAMSULOSIN 0.4 MG CAPSULE PO SCH (08:19)
[2019-03-09] MEDS: DIGOXIN 125 MCG TABLET PO SCH (08:19)
[2019-03-09] MEDS: ENOXAPARIN 40 MG/0.4 ML SYRINGE SUBQ SCH (08:20)
[2019-03-09] MEDS: SODIUM CHLORIDE FLUSH 0.9% 10 ML SYRINGE IVP SCH ×2 (08:20→16:28)
[2019-03-09] MEDS: LORazepam 1 MG TABLET PO PRN ×2 (08:45→19:48)
[2019-03-09] MEDS: HYDROmorphone 1 MG/ML CARPUJECT IVP PRN ×4 (09:46→22:33)
--- NOTE | 2019-03-09 10:47 | PROVIDER PROGRESS NOTE ---
Subjective - Prog Note Date Prog Note Date: 03/09/19 - Subjective Pt reports feeling: Improved Subjective: pt is comfort sitting at the chair. he report he feel better, breath is better. we will try to d/c his santos to see if pt can urine by his own, pt took Flomax. pt denies chest pain, headache, fever, chill, cough. Current Medications - Current Medications Current Medications: Active Medications Albuterol () 2.5 mg INH RTQ4H PRN PRN Reason: Wheezing Albuterol/Ipratropium (Duoneb) 3 ml INH RTQ4H PRN PRN Reason: SHORTNESS OF AIR/WHEEZING Last Admin: 03/09/19 07:50 Dose: 3 ml Chlorhexidine Gluconate (Peridex) 15 ml PO DAILY PRN PRN Reason: THRUSH Last Admin: 03/08/19 11:11 Dose: 15 ml Digoxin (Lanoxin) 125 mcg PO DAILY [facility] Last Admin: 03/09/19 08:19 Dose: 125 mcg Diphenhydramine HCl (Benadryl) 25 mg PO Q6HR PRN PRN Reason: ITCHING Docusate Sodium (Colace 250mg Capsule) 250 - 500 mg PO DAILY [facility] Last Admin: 03/09/19 08:18 Dose: 250 mg Enoxaparin Sodium (Lovenox) 40 mg SUBQ DAILY [facility] Last Admin: 03/09/19 08:20 Dose: Not Given Gabapentin (Neurontin) 1,600 mg PO BID [facility] Last Admin: 03/09/19 08:18 Dose: 1,600 mg Guaifenesin (Mucinex) 600 mg PO BID [facility] Last Admin: 03/09/19 08:19 Dose: 600 mg Heparin Sodium (Beef Lung) () 30 - 50 unit IVP PRN PRN PRN Reason: Port Protocol (<24 hours) Last Admin: 03/08/19 20:53 Dose: 50 unit Hydromorphone HCl (Dilaudid Inj Carp) 1 mg IVP Q2HR PRN PRN Reason: PAIN Last Admin: 03/09/19 09:46 Dose: 1 mg Furosemide 80 mg/ Sodium (Chloride) 58 mls @ 232 mls/hr IVP BIDDIURETIC GIOVANA Last Admin: 03/09/19 06:12 Dose: 232 mls/hr Levetiracetam (Keppra) 500 mg PO BID [facility] Last Admin: 03/09/19 08:19 Dose: 500 mg Lidocaine (Xylocaine Ointment 5%) 1 applic TOP PRN PRN PRN Reason: PAIN Lidocaine HCl (Xylocaine Uro-Jet 2%) 2.5 ml UR Q6H PRN PRN Reason: PAIN Last Admin: 03/07/19 20:18 Dose: 2.5 ml Loperamide HCl (Imodium) 2 mg PO QID PRN PRN Reason: LOOSE STOOLS Last Admin: 03/07/19 17:00 Dose: 2 mg Lorazepam (Ativan) 1 mg PO Q8HR PRN PRN Reason: Anxiety Last Admin: 03/09/19 08:45 Dose: 1 mg Montelukast Sodium (Singulair) 10 mg PO QPM [facility] Last Admin: 03/08/19 20:53 Dose: 10 mg Nystatin (Mycostatin) 5 ml PO QID PRN PRN Reason: THRUSH Last Admin: 03/08/19 20:04 Dose: 5 ml Ondansetron HCl (Zofran Odt) 4 mg TL Q6H PRN PRN Reason: Nausea / Vomiting Last Admin: 03/08/19 10:02 Dose: 4 mg Oxybutynin Chloride (Ditropan) 20 mg PO Q4HR PRN PRN Reason: PAIN Oxycodone HCl (Roxicodone) 20 mg PO Q12H [facility] Last Admin: 03/09/19 04:56 Dose: 20 mg Pantoprazole Sodium (Protonix) 40 mg PO QDAC [facility] Last Admin: 03/09/19 06:12 Dose: 40 mg Patient Own Med ( Melatonin [Melatonin ] 6 Mg) 1 each PO QPM PRN PRN Reason: Insomnia Senna (Senokot) 8.6 - 17.2 mg PO DAILY [facility] Last Admin: 03/09/19 08:19 Dose: 8.6 mg Sodium Chloride (Normal Saline Flush 0.9%) 10 ml IVP PRN PRN PRN Reason: NEEDED PER PROVIDER ORDERS Last Admin: 03/09/19 09:47 Dose: 10 ml Sodium Chloride (Normal Saline Flush 0.9%) 10 ml IVP 0100,0900,1700 [facility] Last Admin: 03/09/19 08:20 Dose: Not Given Sodium Chloride (Normal Saline Flush 0.9%) 20 ml IVP PRN PRN PRN Reason: After Blood Draw Last Admin: 03/09/19 04:59 Dose: 20 ml Spironolactone (Aldactone) 25 mg PO BIDWM [facility] Last Admin: 03/09/19 08:19 Dose: 25 mg Tamsulosin HCl (Flomax) 0.4 mg PO DAILY [facility] Last Admin: 03/09/19 08:19 Dose: 0.4 mg Throat Lozenges (Cepacol) 1 lozenge MM Q2HR PRN PRN Reason: Throat pain Last Admin: 03/09/19 00:20 Dose: 1 lozenge Lorazepam [Ativan] 1 mg PO Q8HR PRN 09/23/15 Tamsulosin [Flomax] 0.4 mg PO DAILY 06/29/16 Oxycodone HCl 10 - 20 mg PO Q4HR PRN MDD 8 tabs 07/26/17 Lidocaine Ointment 5% [Xylocaine Ointment 5%] 1 applic TOP PRN PRN 08/20/17 Gabapentin [Neurontin] 1,600 mg PO BID 09/27/17 Albuterol Sulf [Ventolin Hfa Inhaler] 2 puffs INH Q4HR PRN 05/09/18 Melatonin 3 - 6 mg PO QPM PRN 05/09/18 Nystatin 5 ml PO QID PRN 10/04/18 diphenhydrAMINE [Benadryl] 25 mg PO Q6HR PRN 10/04/18 Chlorhexidine Gluconate [Peridex] 15 ml PO DAILY PRN 12/18/18 Esomeprazole Magnesium [Nexium] 20 mg PO DAILY 12/18/18 Magnesium 250 mg PO BID 12/18/18 Oxycodone HCl [Oxycontin] 20 mg PO Q12H 12/18/18 Polyethylene Glycol 3350 [Miralax] 17 gm PO DAILY PRN 12/18/18 Budesonide/Formoterol Fumarate [Symbicort 160-4.5 Mcg Inhaler] 2 puffs IH BID 12/20/18 Torsemide 20 mg PO DAILY 01/11/19 Ipratropium/Albuterol [Duoneb] 3 ml INH Q4HR PRN 02/15/19 Loperamide HCl [Loperamide] 2 mg PO QID PRN 02/23/19 Objective - Vital Signs/Intake & Output Reviewed Vital Signs: Yes Vital Signs: Vital Signs x48h Temp Pulse Pulse Resp BP BP Pulse Ox 03/09/19 09:44 90/47 L 03/09/19 09:42 89 80/46 L 03/09/19 07:50 73 14 03/09/19 07:30 36.9 C 72 18 99/53 L 95 03/09/19 05:06 36.9 C 68 16 119/65 95 Intake & Output: Intake & Output 03/06/19 03/07/19 03/08/19 03/09/19 23:59 23:59 23:59 23:59 Intake Total 1000 1450 520 Output Total 4925 7955 1215 Balance -1863 -5566 -4978 - Objective General Appearance: positive: No acute distress, Alert. negative: Lethargic Eyes Bilateral: positive: Normal inspection, PERRL, No lid inflammation, Conjunctivae nml ENT: positive: ENT inspection nml, Pharynx nml, No signs of dehydration. negative: Purulent nasal drainage, Pharyngeal erythema, Oral lesions Neck: positive: Nml inspection, Thyroid nml, No JVD, Trachea midline. negative: Thyromegaly, Lymphadenopathy (R), Lymphadenopathy (L), Stiff neck, Swelling/bruising, Tracheal deviation Respiratory: positive: Chest non-tender, No respiratory distress. negative: Wheezes, Rales, Rhonchi Cardiovascular: positive: Regular rate & rhythm, No murmur, No gallop. negative: Irregularly irregular, Extrasystoles, Tachycardia, Bradycardia, S ystolic murmur, Diastolic murmur Peripheral Pulses: 2+ Radial (R), 2+ Radial (L), 2+ Dorsalis pedis (R), 2+ Dorsalis pedis (L) Abdomen: positive: Non-tender, No organomegaly, Nml bowel sounds, No distention. negative: Tenderness, Guarding, Rebound Back: positive: Nml inspection. negative: CVA tenderness (R), CVA tenderness (L) Skin: positive: Color nml, No rash, Warm, Dry. negative: Cyanosis, Diaphoresis, Pallor Extremities: positive: Non-tender. negative: Calf tenderness, Abhijit's sign/cords Neurologic/Psychiatric: positive: Oriented x3, Sensation nml, Mood/affect nml. negative: Weakness, Sensory loss, Facial droop, Slurred/abnml speech, Depressed mood/affect - Lab Results Fish Bones: 03/09/19 05:00 03/09/19 05:00 Other Labs: Lab Results x24hrs 03/09/19 03/09/19 03/09/19 Range/Units 05:00 05:00 05:00 WBC 5.5 (4.8-10.8) x10^3/uL RBC 4.04 L (4.70-6.10) 10^6/uL Hgb 10.4 L (14.0-18.0) g/dL Hct 33.4 L (42.0-52.0) % MCV 82.7 (80.0-94.0) fL MCH 25.7 L (27.0-31.0) pg MCHC 31.1 L (32.0-36.0) g/dL RDW 17.8 H (12.0-15.0) % Plt Count 187 (130-450) 10^3/uL MPV 8.5 (7.4-11.4) fL Neut # (Auto) 3.2 (1.5-6.6) 10^3/uL Lymph # (Auto) 1.1 L (1.5-3.5) 10^3/uL [place] # (Auto) 0.7 (0.0-1.0) 10^3/uL Eos # (Auto) 0.5 (0.0-0.7) 10^3/uL Baso # (Auto) 0.0 (0.0-0.1) 10^3/uL Absolute Nucleated RBC 0.00 x10^3/uL Nucleated RBC % 0.0 /100WBC Sodium 132 L (135-145) mmol/L Potassium 3.5 (3.5-5.0) mmol/L Chloride 92 L (101-111) mmol/L Carbon Dioxide 31 (21-32) mmol/L Anion Gap 9.0 (6-13) BUN 6 (6-20) mg/dL Creatinine 0.9 (0.6-1.2) mg/dL Estimated GFR (MDRD) 87 L (>89) Glucose 107 H (70-100) mg/dL Calcium 8.7 (8.5-10.3) mg/dL Total Bilirubin 0.4 (0.2-1.0) mg/dL AST 14 (10-42) IU/L ALT < 10 L (10-60) IU/L Alkaline Phosphatase 80 (42-121) IU/L B-Natriuretic Peptide 184 H (5-100) pg/mL Total Protein 6.3 L (6.7-8.2) g/dL Albumin 3.1 L (3.2-5.5) g/dL Globulin 3.2 (2.1-4.2) g/dL Albumin/Globulin Ratio 1.0 (1.0-2.2) ABX Reporting Has patient been on IV antibiotics over the past 48 hours?: No Sepsis Event Note (H) - Evaluation Current Stage of Sepsis: Ruled out Assessment/Plan - Problem List (1) Diastolic heart failure with preserved ejection fraction Impression: 03/09 pt report he feel better and breath is better. his BNP is down to 184 from 478 in the admission, and close to pt's BNP baseline about 100 continue diuretics continue lab, tele and vital monitor 03/08 improved. pt report he felt his breath better. it was likely caused by combinations of pt's prior alcohol abuse, tobacco abuse, medical non-compliance, hx of cancer. according to recent twice ECHO, pt has 60-65% EF without regional wall motion abnormality, but increase RSVP to 79mmhg and severe abnormal right heart pressure. pt present full overload, and increase bilateral leg edemal, and BNP. continue IV of Lasix daily lab monitor. vital monitor, special monitor pt's BP to see if pt can tolerate diuretics continue daily weight, fluid restriction, regular diet without reduced of sodium now because of pt's sodium is low Shortness of breath 03/09 great improved now. pt has no respiratory distress and comfort sleep at the chair now. pt is without O2 dependent at home. now pt has 95% sats on 3 liter of O2, we will try to wane down of O2 supplement. pt's SOB is possible combination of acute on chronic diastolic CHF, pt has RVSP 79 mmHG in new ECHO with significant pulmonary hypertension, COPD with current cigarette smoker, and metastatic lung cancer. continue diuretics continue albuterol and Duoneb breath treatment PRN Hyponatremia 03/09 improved. today Na is 132 continue diuretics continue lab monitor 03/08 improved. Na is 128 from 121 in admission. pt has hx of hyponatremia. it is likely hypervolume with hyponatremia continue diuretics continue lab monitor COPD (chronic obstructive pulmonary disease) without exacerbation 03/08 stable, pt is still current cigarette smoker. pt has hx of COPD continue O2 supplement as needed continue albuterol and Duoneb as needed PVD (peripheral vascular disease) stable, pt present Recurrent wounds, status post left toe amputation (middle 3 toes) continue wound care in [facility] [place] advise pt cease cigarette smoking Chronic foot ulcers stable, consulted with wound care provider, will followup continue elevate lower extremities, monitor infection BPH History of urinary retention, continue Flomax. pt has lower BP, will consider add Proscar if pt can tolerate pt has Santos now, will try off Santos to see pt can urinate by himself. Urinary retention 03/09 we will try d/c pt's santos and let pt urinate by himself continue I&O bladder scan by nurse protocol pt was Noted on his hx of prior hospitalization, but patient had refused a santos in the past, "they hurt too much" pt had difficult to urinate and Since patient will be getting high dose diuretics and remains profoundly short of breath, orders to insert a santos plan to remove Santos on tomorrow, and monitor pt if he can urinate by himself monitor I&O Chronic pain syndrome chronic, continue home pain regimen Brain cancer stable AMS, pt denies headache. Status post craniotomy in 2017, status post gamma knife continue seizures meds Seizure disorder stable, pt has no seizure in hospital. it was Likely due to craniotomy to remove tumors from metastatic disease continue Takes Keppra seizure precaution Metastatic non-small cell lung cancer stable, Status post chemotherapy continue support, supplement O2 as needed Alcohol abuse pt has hx of alcohol abuse Patient states that he has cut down recently advise pt reduce and cease alcohol intake Tobacco dependence pt has chantix order, encourage pt quit tobacco abuse Depression stable. continue home meds Visual impairment stable, consult social economist for safety discharge Inadequate social support continue support, consult with social economist Medical non-compliance pt continue medical non-compliance. pt report he took his potassium dosage and lasix dosage by himself's need, not according to provider's instructions. advise followup medical recommendations. weakness pt present profound weakness, consult with PT/OT, followup recommendations.
[2019-03-09] MEDS ORDERED: POTASSIUM CHLORIDE 20 MEQ TABLET PO SCH (13:54)
[2019-03-09] MEDS: MONTELUKAST 10 MG TABLET PO SCH (20:57)
[2019-03-10] MEDS: ONDANSETRON ODT 4 MG TABLET TL PRN (00:34)
[2019-03-10] MEDS: HYDROmorphone 1 MG/ML CARPUJECT IVP PRN ×4 (00:46→21:18)
[2019-03-10] MEDS: SODIUM CHLORIDE FLUSH 0.9% 10 ML SYRINGE IVP SCH ×3 (00:47→17:45)
[2019-03-10] MEDS: oxyCODONE 5 MG TABLET PO SCH ×2 (03:47→15:52)
[2019-03-10] MEDS: ACETAMINOPHEN 325 MG TABLET PO PRN ×2 (03:59→16:20)
[2019-03-10 04:30] LABS: BASOPHILS # (AUTO) 0.1 10^3/uL (0.0-0.1); BASOPHILS % (AUTO) 0.5 %; EOSINOPHILS # (AUTO) 0.7 10^3/uL (0.0-0.7); EOSINOPHILS % (AUTO) 6.2 %; HGB - HEMOGLOBIN 11.2 g/dL (14.0-18.0); LYMPHOCYTES # (AUTO) 0.9 10^3/uL (1.5-3.5); MEAN CORPUSCULAR HEMOGLOBIN 26.5 pg (27.0-31.0); MEAN CORPUSCULAR VOLUME 82.7 fL (80.0-94.0); MEAN PLATELET VOLUME 8.7 fL (7.4-11.4); MONOCYTES # (AUTO) 0.8 10^3/uL (0.0-1.0); MONOCYTES % (AUTO) 7.9 %; NEUTROPHILS # (AUTO) 7.9 10^3/uL (1.5-6.6); NEUTROPHILS % (AUTO) 75.8 %; PLT - PLATELET COUNT 196 10^3/uL (130-450); RED BLOOD COUNT 4.23 10^6/uL (4.70-6.10); RED CELL DISTRIBUTION WIDTH 17.7 % (12.0-15.0); WHITE BLOOD COUNT 10.5 x10^3/uL (4.8-10.8)
[2019-03-10 04:42] LABS: ALBUMIN 3.3 g/dL (3.2-5.5); ALBUMIN/GLOBULIN RATIO 0.9 (1.0-2.2); ALKALINE PHOSPHATASE 77 IU/L (42-121); ALT ALANINE AMINOTRANSFERASE < 10 IU/L (10-60); AST ASPARTATE AMINOTRANSFERASE 16 IU/L (10-42); BILIRUBIN,TOTAL 0.7 mg/dL (0.2-1.0); BUN - BLOOD UREA NITROGEN 8 mg/dL (6-20); CALCIUM 8.7 mg/dL (8.5-10.3); CARBON DIOXIDE - CO2 30 mmol/L (21-32); CHLORIDE 90 mmol/L (101-111); CREATININE 0.9 mg/dL (0.6-1.2); GFR - MDRD 87 (>89); GLUCOSE 107 mg/dL (70-100); SODIUM 131 mmol/L (135-145); TOTAL PROTEIN 6.9 g/dL (6.7-8.2)
[2019-03-10] MEDS: SODIUM CHLORIDE FLUSH 0.9% 10 ML SYRINGE IVP PRN ×6 (05:09→21:19)
[2019-03-10] MEDS: PANTOPRAZOLE 40 MG TABLET PO SCH (06:03)
[2019-03-10] MEDS: FUROSEMIDE INJ 100mg VIAL 80 MG in SODIUM CHLORIDE 0.9% 50 ML IVP SCH (06:04)
[2019-03-10] MEDS: SPIRONOLACTONE 25 MG TABLET PO SCH ×2 (07:50→17:44)
--- NOTE | 2019-03-10 09:51 | XRAY Report ---
Reason: fever, cough Procedure Date: 03/10/2019 Accession Number: [id number] / [id number] Procedure: XR - Chest 1 View X-Ray CPT Code: 70041 FULL RESULT: EXAM: CHEST RADIOGRAPHY EXAM DATE: 03/10/2019 09:06 AM. CLINICAL HISTORY: Fever, cough. COMPARISON: CHEST 1 VIEW 03/07/2019 10:10 AM CHEST ANGIO 02/22/2019 5:33 PM. TECHNIQUE: 1 view. FINDINGS: Lungs/Pleura: Severe emphysematous changes. Persistent right pleural effusion, question loculated with associated airspace disease. Grossly clear left lung. No left effusion. No pneumothorax. Mediastinum: Heart size accentuated by the AP portable technique. Other: Left subclavian Port-A-Cath. Old healed rib fractures. IMPRESSION: Persistent left pleural effusion and airspace disease similar to 03/07/2019. Loculated effusion not excluded. Clear left lung. RADIA
[2019-03-10] MEDS: PIPERACILLIN/TAZOBACTAM 3.375 GM in SODIUM CHLORIDE 0.9% MINIBAG 100 ML IV SCH ×3 (10:03→20:50)
[2019-03-10] MEDS: ENOXAPARIN 40 MG/0.4 ML SYRINGE SUBQ SCH ×2 (10:04→10:16)
[2019-03-10] MEDS: TAMSULOSIN 0.4 MG CAPSULE PO SCH (10:05)
[2019-03-10] MEDS: DIGOXIN 125 MCG TABLET PO SCH (10:05)
[2019-03-10] MEDS: GABAPENTIN 400 MG CAPSULE PO SCH ×2 (10:05→20:51)
[2019-03-10] MEDS: DOCUSATE SODIUM 250 MG CAPSULE PO SCH (10:05)
[2019-03-10] MEDS: levETIRAcetam 250 MG TABLET PO SCH ×2 (10:06→20:51)
[2019-03-10] MEDS: SENNA 8.6 MG TABLET PO SCH (10:06)
[2019-03-10] MEDS: guaiFENesin 600 MG TABLET PO SCH ×2 (10:06→20:51)
--- NOTE | 2019-03-10 10:35 | PROVIDER PROGRESS NOTE ---
Objective - Vital Signs/Intake & Output Vital Signs: Vital Signs x48h Temp Pulse Pulse Resp BP BP Pulse Ox 03/10/19 07:50 96 16 03/10/19 07:40 37.3 C 94 19 91/49 L 94 03/10/19 06:50 37.3 C 03/10/19 05:55 108 H 91/44 L 03/10/19 05:50 37.8 C H 106 H 18 86/48 L 87/50 L 91 L 03/10/19 05:12 38.7 C H 03/10/19 03:40 38.4 C H Intake & Output: Intake & Output 03/07/19 03/08/19 03/09/19 03/10/19 23:59 23:59 23:59 23:59 Intake Total 1000 1450 920 420 Output Total 4925 1044 3425 150 Balance -1475 -7231 -4937 270 - Lab Results Fish Bones: 03/10/19 04:20 03/10/19 04:20 Other Labs: Lab Results x24hrs 03/10/19 03/10/19 03/10/19 Range/Units 08:04 04:20 04:20 WBC (4.8-10.8) x10^3/uL RBC (4.70-6.10) 10^6/uL Hgb (14.0-18.0) g/dL Hct (42.0-52.0) % MCV (80.0-94.0) fL MCH (27.0-31.0) pg MCHC (32.0-36.0) g/dL RDW (12.0-15.0) % Plt Count (130-450) 10^3/uL MPV (7.4-11.4) fL Neut # (Auto) (1.5-6.6) 10^3/uL Lymph # (Auto) (1.5-3.5) 10^3/uL [place] # (Auto) (0.0-1.0) 10^3/uL Eos # (Auto) (0.0-0.7) 10^3/uL Baso # (Auto) (0.0-0.1) 10^3/uL Absolute Nucleated RBC x10^3/uL Nucleated RBC % /100WBC Sodium 131 L (135-145) mmol/L Potassium 3.8 (3.5-5.0) mmol/L Chloride 90 L (101-111) mmol/L Carbon Dioxide 30 (21-32) mmol/L Anion Gap 11.0 (6-13) BUN 8 (6-20) mg/dL Creatinine 0.9 (0.6-1.2) mg/dL Estimated GFR (MDRD) 87 L (>89) Glucose 107 H (70-100) mg/dL Lactic Acid 1.0 (0.5-2.2) mmol/L Calcium 8.7 (8.5-10.3) mg/dL Total Bilirubin 0.7 (0.2-1.0) mg/dL AST 16 (10-42) IU/L ALT < 10 L (10-60) IU/L Alkaline Phosphatase 77 (42-121) IU/L B-Natriuretic Peptide 125 H (5-100) pg/mL Total Protein 6.9 (6.7-8.2) g/dL Albumin 3.3 (3.2-5.5) g/dL Globulin 3.6 (2.1-4.2) g/dL Albumin/Globulin Ratio 0.9 L (1.0-2.2) 03/10/19 Range/Units 04:20 WBC 10.5 (4.8-10.8) x10^3/uL RBC 4.23 L (4.70-6.10) 10^6/uL Hgb 11.2 L (14.0-18.0) g/dL Hct 35.0 L (42.0-52.0) % MCV 82.7 (80.0-94.0) fL MCH 26.5 L (27.0-31.0) pg MCHC 32.0 (32.0-36.0) g/dL RDW 17.7 H (12.0-15.0) % Plt Count 196 (130-450) 10^3/uL MPV 8.7 (7.4-11.4) fL Neut # (Auto) 7.9 H (1.5-6.6) 10^3/uL Lymph # (Auto) 0.9 L (1.5-3.5) 10^3/uL [place] # (Auto) 0.8 (0.0-1.0) 10^3/uL Eos # (Auto) 0.7 (0.0-0.7) 10^3/uL Baso # (Auto) 0.1 (0.0-0.1) 10^3/uL Absolute Nucleated RBC 0.00 x10^3/uL Nucleated RBC % 0.0 /100WBC Sodium (135-145) mmol/L Potassium (3.5-5.0) mmol/L Chloride (101-111) mmol/L Carbon Dioxide (21-32) mmol/L Anion Gap (6-13) BUN (6-20) mg/dL Creatinine (0.6-1.2) mg/dL Estimated GFR (MDRD) (>89) Glucose (70-100) mg/dL Lactic Acid (0.5-2.2) mmol/L Calcium (8.5-10.3) mg/dL Total Bilirubin (0.2-1.0) mg/dL AST (10-42) IU/L ALT (10-60) IU/L Alkaline Phosphatase (42-121) IU/L B-Natriuretic Peptide (5-100) pg/mL Total Protein (6.7-8.2) g/dL Albumin (3.2-5.5) g/dL Globulin (2.1-4.2) g/dL Albumin/Globulin Ratio (1.0-2.2) Sepsis Event Note (H) - Evaluation Current Stage of Sepsis: Ruled out Assessment/Plan - Problem List (1) Diastolic heart failure with preserved ejection fraction Impression: 03/10 improved. pt report he feel better. pt has 94% sats on 2 liter of O2 supplement. BNP is down to 125 from previous 478 switch to PO lasix continue lab, tele and vital monitor 03/09 pt report he feel better and breath is better. his BNP is down to 184 from 478 in the admission, and close to pt's BNP baseline about 100 continue diuretics continue lab, tele and vital monitor 03/08 improved. pt report he felt his breath better. it was likely caused by combinations of pt's prior alcohol abuse, tobacco abuse, medical non-compliance, hx of cancer. according to recent twice ECHO, pt has 60-65% EF without regional wall motion abnormality, but increase RSVP to 79mmhg and severe abnormal right heart pressure. pt present full overload, and increase bilateral leg edemal, and BNP. continue IV of Lasix daily lab monitor. vital monitor, special monitor pt's BP to see if pt can tolerate diuretics continue daily weight, fluid restriction, regular diet without reduced of sodium now because of pt's sodium is low Fever 03/10 pt has fever on last night, unknown etiology now will check CXR, UA blood culture is pending now start on Zosyn Shortness of breath 03/10 improved. pt is comfortable eating his breakfast, no respiratory distress now. continue albuterol and Duoneb breath treatment PRN continue supplement of O2 as needed 03/09 great improved now. pt has no respiratory distress and comfort sleep at the chair now. pt is without O2 dependent at home. now pt has 95% sats on 3 liter of O2, we will try to wane down of O2 supplement. pt's SOB is possible combination of acute on chronic diastolic CHF, pt has RVSP 79 mmHG in new MAUD with significant pulmonary hypertension, COPD with current cigarette smoker, and metastatic lung cancer. continue diuretics continue albuterol and Duoneb breath treatment PRN Hyponatremia 03/10 stable, Na 131 now continue lab monitor 03/09 improved. today Na is 132 continue diuretics continue lab monitor 03/08 improved. Na is 128 from 121 in admission. pt has hx of hyponatremia. it is likely hypervolume with hyponatremia continue diuretics continue lab monitor COPD (chronic obstructive pulmonary disease) without exacerbation 03/08 stable, pt is still current cigarette smoker. pt has hx of COPD continue O2 supplement as needed continue albuterol and Duoneb as needed PVD (peripheral vascular disease) stable, pt present Recurrent wounds, status post left toe amputation (middle 3 toes) continue wound care in [facility] [place] clinic advise pt cease cigarette smoking Chronic foot ulcers stable, consulted with wound care provider, will followup continue elevate lower extremities, monitor infection BPH History of urinary retention, continue Flomax. pt has lower BP, will consider add Proscar if pt can tolerate pt has Santos now, will try off Santos to see pt can urinate by himself. Urinary retention-resolved 03/10 resolved. pt can urine by himself 03/09 we will try d/c pt's santos and let pt urinate by himself continue I&O bladder scan by nurse protocol pt was Noted on his hx of prior hospitalization, but patient had refused a santos in the past, "they hurt too much" pt had difficult to urinate and Since patient will be getting high dose diuretics and remains profoundly short of breath, orders to insert a santos plan to remove Santos on tomorrow, and monitor pt if he can urinate by himself monitor I&O Chronic pain syndrome chronic, continue home pain regimen Brain cancer stable AMS, pt denies headache. Status post craniotomy in 2017, status post gamma knife continue seizures meds Seizure disorder stable, pt has no seizure in hospital. it was Likely due to craniotomy to remove tumors from metastatic disease continue Takes Keppra seizure precaution Metastatic non-small cell lung cancer stable, Status post chemotherapy continue support, supplement O2 as needed Alcohol abuse pt has hx of alcohol abuse Patient states that he has cut down recently advise pt reduce and cease alcohol intake Tobacco dependence pt has chantix order, encourage pt quit tobacco abuse Depression stable. continue home meds Visual impairment stable, consult social science professor for safety discharge Inadequate social support continue support, consult with social science professor Medical non-compliance pt continue medical non-compliance. pt report he took his potassium dosage and lasix dosage by himself's need, not according to provider's instructions. advise followup medical recommendations. weakness 03/10 continue PT/OT, followup recommendation for d/c planning pt present profound weakness, consult with PT/OT, followup recommendations.
[2019-03-10] MEDS ORDERED: CALCIUM CARBONATE CHEW 500 MG TABLET PO PRN (10:39)
[2019-03-10 14:10] LABS: BILIRUBIN,URINE NEGATIVE (NEGATIVE); GLUCOSE, URINE (UA) NEGATIVE (NEGATIVE); KETONES,URINE (UA) NEGATIVE (NEGATIVE); LEUKOCYTE ESTERASE, URINE NEGATIVE (NEGATIVE); NITRITE,URINE NEGATIVE (NEGATIVE); OCCULT BLOOD,URINE LARGE (NEGATIVE); PH,URINE 7.5 PH (5.0-7.5); PROTEIN,URINE TRACE mg/dL (NEGATIVE); UROBILINOGEN,URINE 0.2 (NORMAL) E.U./dL (NORMAL)
[2019-03-10 14:12] LABS: CLARITY,URINE HAZY (CLEAR)
[2019-03-10 14:20] LABS: BACTERIA,URINE Moderate /HPF (None Seen); RBC,URINE TNTC /HPF (0-5); SQUAMOUS EPITHELIAL CELL,UR RARE Squamous (<= Few)
[2019-03-10] MEDS: BENZOCAINE/MENTHOL LOZENGE MM PRN (14:36)
[2019-03-10] MEDS ORDERED: VANCOMYCIN PER PHARMACY 1 GM in SODIUM CHLORIDE 0.9% 250 ML IV SCH (16:00)
[2019-03-10] MEDS: VANCOMYCIN INJ 1.5 GM in SODIUM CHLORIDE 0.9% 500 ML IV SCH (17:45)
[2019-03-10] MEDS: MONTELUKAST 10 MG TABLET PO SCH (20:52)
[2019-03-11] MEDS: SODIUM CHLORIDE FLUSH 0.9% 10 ML SYRINGE IVP SCH ×4 (00:43→23:42)
[2019-03-11] MEDS: SODIUM CHLORIDE FLUSH 0.9% 10 ML SYRINGE IVP PRN ×6 (00:43→23:43)
[2019-03-11] MEDS: VANCOMYCIN INJ 1.5 GM in SODIUM CHLORIDE 0.9% 500 ML IV SCH ×3 (00:43→16:45)
[2019-03-11] MEDS: HYDROmorphone 1 MG/ML CARPUJECT IVP PRN ×5 (00:48→23:42)
[2019-03-11] MEDS: PIPERACILLIN/TAZOBACTAM 3.375 GM in SODIUM CHLORIDE 0.9% MINIBAG 100 ML IV SCH ×3 (03:13→18:48)
[2019-03-11] MEDS: BENZOCAINE/MENTHOL LOZENGE MM PRN ×4 (03:20→23:42)
[2019-03-11] MEDS: oxyCODONE 5 MG TABLET PO SCH (04:45)
[2019-03-11] MEDS: PANTOPRAZOLE 40 MG TABLET PO SCH (04:52)
[2019-03-11] MEDS: IPRATROPIUM/ALBUTEROL 3 ML NEB INH PRN ×3 (05:46→21:56)
[2019-03-11 06:14] LABS: BASOPHILS % (AUTO) 0.6 %; EOSINOPHILS # (AUTO) 0.6 10^3/uL (0.0-0.7); EOSINOPHILS % (AUTO) 8.5 %; HGB - HEMOGLOBIN 9.9 g/dL (14.0-18.0); LYMPHOCYTES % (AUTO) 15.1 %; MEAN CORPUSCULAR HEMOGLOBIN 25.9 pg (27.0-31.0); MEAN CORPUSCULAR HGB CONC 30.8 g/dL (32.0-36.0); MEAN PLATELET VOLUME 8.6 fL (7.4-11.4); MONOCYTES # (AUTO) 0.9 10^3/uL (0.0-1.0); MONOCYTES % (AUTO) 12.5 %; NEUTROPHILS # (AUTO) 4.3 10^3/uL (1.5-6.6); PLT - PLATELET COUNT 161 10^3/uL (130-450); RED BLOOD COUNT 3.82 10^6/uL (4.70-6.10); RED CELL DISTRIBUTION WIDTH 17.6 % (12.0-15.0); WHITE BLOOD COUNT 6.8 x10^3/uL (4.8-10.8)
[2019-03-11 06:21] LABS: CALCIUM 8.5 mg/dL (8.5-10.3)
[2019-03-11] MEDS: GABAPENTIN 400 MG CAPSULE PO SCH ×2 (08:11→21:32)
[2019-03-11] MEDS: POLYETHYLENE GLYCOL 3350 17 GM PACKET PO SCH (08:11)
[2019-03-11] MEDS: DIGOXIN 125 MCG TABLET PO SCH (08:12)
[2019-03-11] MEDS: DOCUSATE SODIUM 250 MG CAPSULE PO SCH (08:12)
[2019-03-11] MEDS: guaiFENesin 600 MG TABLET PO SCH ×2 (08:12→21:32)
[2019-03-11] MEDS: SPIRONOLACTONE 25 MG TABLET PO SCH ×2 (08:12→17:06)
[2019-03-11] MEDS: TAMSULOSIN 0.4 MG CAPSULE PO SCH (08:12)
[2019-03-11] MEDS: SENNA 8.6 MG TABLET PO SCH ×2 (08:12→08:19)
[2019-03-11] MEDS: levETIRAcetam 250 MG TABLET PO SCH ×2 (08:13→21:33)
[2019-03-11] MEDS: FUROSEMIDE 40 MG TABLET PO SCH (08:13)
[2019-03-11] MEDS: ENOXAPARIN 40 MG/0.4 ML SYRINGE SUBQ SCH (08:14)
[2019-03-11] MEDS ORDERED: LACTULOSE 10 GM /15 ML UDC PO PRN (10:53)
[2019-03-11] MEDS: oxyCODONE ER 10 MG TABLET PO SCH ×2 (11:12→21:32)
[2019-03-11] MEDS: oxyCODONE 5 MG TABLET PO PRN ×2 (11:59→17:09)
[2019-03-11] MEDS: MULTIVITAMIN W/MINERALS TABLET PO SCH (12:00)
--- NOTE | 2019-03-11 15:15 | PROVIDER PROGRESS NOTE ---
Subjective - Prog Note Date Prog Note Date: 03/11/19 - Subjective Pt reports feeling: Improved Subjective: pt has fever on yesterday afternoon, but pt report he has no fever on last night. he felt better today. pt denies chest pain, cough shortness of breath. Current Medications - Current Medications Current Medications: Active Medications Acetaminophen (Tylenol) 650 mg PO Q4HR PRN PRN Reason: Pain or Fever > 38C (100.4F) Last Admin: 03/10/19 16:20 Dose: 650 mg Albuterol () 2.5 mg INH RTQ4H PRN PRN Reason: Wheezing Albuterol/Ipratropium (Duoneb) 3 ml INH RTQ4H PRN PRN Reason: SHORTNESS OF AIR/WHEEZING Last Admin: 03/11/19 13:57 Dose: 3 ml Calcium Carbonate/Glycine (Tums) 500 mg PO BID PRN PRN Reason: Heartburn Last Admin: 03/10/19 11:13 Dose: 500 mg Chlorhexidine Gluconate (Peridex) 15 ml PO DAILY PRN PRN Reason: THRUSH Last Admin: 03/08/19 11:11 Dose: 15 ml Digoxin (Lanoxin) 125 mcg PO DAILY [facility] Last Admin: 03/11/19 08:12 Dose: 125 mcg Diphenhydramine HCl (Benadryl) 25 mg PO Q6HR PRN PRN Reason: ITCHING Docusate Sodium (Colace 250mg Capsule) 250 - 500 mg PO DAILY [facility] Last Admin: 03/11/19 08:12 Dose: 500 mg Enoxaparin Sodium (Lovenox) 40 mg SUBQ DAILY [facility] Last Admin: 03/11/19 08:14 Dose: Not Given Furosemide (Lasix) 40 mg PO DAILY [facility] Last Admin: 03/11/19 08:13 Dose: 40 mg Gabapentin (Neurontin) 1,600 mg PO BID [facility] Last Admin: 03/11/19 08:11 Dose: 1,600 mg Guaifenesin (Mucinex) 600 mg PO BID [facility] Last Admin: 03/11/19 08:12 Dose: 600 mg Heparin Sodium (Beef Lung) () 30 - 50 unit IVP PRN PRN PRN Reason: Port Protocol (<24 hours) Last Admin: 03/10/19 14:26 Dose: 30 unit Hydromorphone HCl (Dilaudid Inj Carp) 1 mg IVP Q2HR PRN PRN Reason: PAIN Last Admin: 03/11/19 08:23 Dose: 1 mg Piperacillin Sod/Tazobactam (Sod 3.375 gm/ Sodium Chloride) 100 mls @ 200 mls/hr IV Q6H [facility] Last Infusion: 03/11/19 12:58 Dose: Infused Vancomycin HCl 1.5 gm/ Sodium (Chloride) 500 mls @ 250 mls/hr IV Q8H [facility] Last Infusion: 03/11/19 12:05 Dose: Infused Lactulose (Enulose) 10 gm PO TID PRN PRN Reason: Constipation Levetiracetam (Keppra) 500 mg PO BID [facility] Last Admin: 03/11/19 08:13 Dose: 500 mg Lidocaine (Xylocaine Ointment 5%) 1 applic TOP PRN PRN PRN Reason: PAIN Lidocaine HCl (Xylocaine Uro-Jet 2%) 2.5 ml UR Q6H PRN PRN Reason: PAIN Last Admin: 03/07/19 20:18 Dose: 2.5 ml Loperamide HCl (Imodium) 2 mg PO QID PRN PRN Reason: LOOSE STOOLS Last Admin: 03/07/19 17:00 Dose: 2 mg Lorazepam (Ativan) 1 mg PO Q8HR PRN PRN Reason: Anxiety Last Admin: 03/09/19 19:48 Dose: 1 mg Montelukast Sodium (Singulair) 10 mg PO QPM [facility] Last Admin: 03/10/19 20:52 Dose: 10 mg Multivitamins/Minerals (Theragran M) 1 tab PO DAILYWM [facility] Last Admin: 03/11/19 12:00 Dose: 1 tab Nystatin (Mycostatin) 5 ml PO QID PRN PRN Reason: THRUSH Last Admin: 03/08/19 20:04 Dose: 5 ml Ondansetron HCl (Zofran Odt) 4 mg TL Q6H PRN PRN Reason: Nausea / Vomiting Last Admin: 03/10/19 00:34 Dose: 4 mg Oxycodone HCl (Oxycontin) 20 mg PO BID [facility] Last Admin: 03/11/19 11:12 Dose: 20 mg Oxycodone HCl (Roxicodone) 20 mg PO Q4HR PRN PRN Reason: PAIN Last Admin: 03/11/19 11:59 Dose: 20 mg Pantoprazole Sodium (Protonix) 40 mg PO QDAC [facility] Last Admin: 03/11/19 04:52 Dose: 40 mg Patient Own Med ( Melatonin [Melatonin ] 6 Mg) 1 each PO QPM PRN PRN Reason: Insomnia Polyethylene Glycol (Miralax) 17 gm PO DAILY [facility] Last Admin: 03/11/19 08:11 Dose: 17 gm Saccharomyces Boulardii (Florastor) 250 mg PO BIDWM [facility] Sodium Chloride (Normal Saline Flush 0.9%) 10 ml IVP PRN PRN PRN Reason: NEEDED PER PROVIDER ORDERS Last Admin: 03/11/19 03:14 Dose: 10 ml Sodium Chloride (Normal Saline Flush 0.9%) 10 ml IVP 0100,0900,1700 [facility] Last Admin: 03/11/19 08:14 Dose: 10 ml Sodium Chloride (Normal Saline Flush 0.9%) 20 ml IVP PRN PRN PRN Reason: After Blood Draw Last Admin: 03/10/19 21:19 Dose: 20 ml Spironolactone (Aldactone) 25 mg PO BIDWM [facility] Last Admin: 03/11/19 08:12 Dose: 25 mg Tamsulosin HCl (Flomax) 0.4 mg PO DAILY [facility] Last Admin: 03/11/19 08:12 Dose: 0.4 mg Throat Lozenges (Cepacol) 1 lozenge MM Q2HR PRN PRN Reason: Throat pain Last Admin: 03/11/19 11:09 Dose: 1 lozenge Lorazepam [Ativan] 1 mg PO Q8HR PRN 09/23/15 Tamsulosin [Flomax] 0.4 mg PO DAILY 06/29/16 Oxycodone HCl 10 - 20 mg PO Q4HR PRN MDD 8 tabs 07/26/17 Lidocaine Ointment 5% [Xylocaine Ointment 5%] 1 applic TOP PRN PRN 08/20/17 Gabapentin [Neurontin] 1,600 mg PO BID 09/27/17 Albuterol Sulf [Ventolin Hfa Inhaler] 2 puffs INH Q4HR PRN 05/09/18 Melatonin 3 - 6 mg PO QPM PRN 05/09/18 Nystatin 5 ml PO QID PRN 10/04/18 diphenhydrAMINE [Benadryl] 25 mg PO Q6HR PRN 10/04/18 Chlorhexidine Gluconate [Peridex] 15 ml PO DAILY PRN 12/18/18 Esomeprazole Magnesium [Nexium] 20 mg PO DAILY 12/18/18 Magnesium 250 mg PO BID 12/18/18 Oxycodone HCl [Oxycontin] 20 mg PO Q12H 12/18/18 Polyethylene Glycol 3350 [Miralax] 17 gm PO DAILY PRN 12/18/18 Budesonide/Formoterol Fumarate [Symbicort 160-4.5 Mcg Inhaler] 2 puffs IH BID 12/20/18 Torsemide 20 mg PO DAILY 01/11/19 Ipratropium/Albuterol [Duoneb] 3 ml INH Q4HR PRN 02/15/19 Loperamide HCl [Loperamide] 2 mg PO QID PRN 02/23/19 Objective - Vital Signs/Intake & Output Reviewed Vital Signs: Yes Vital Signs: Vital Signs x48h Temp Pulse Pulse Resp BP Pulse Ox 03/11/19 13:58 77 17 03/11/19 12:00 37.0 C 79 16 106/61 93 03/11/19 08:00 37.1 C 83 16 106/61 93 Intake & Output: Intake & Output 03/08/19 03/09/19 03/10/19 03/11/19 23:59 23:59 23:59 23:59 Intake Total 7747 375 5886 2220 Output Total 2475 3425 620 2025 Balance -1025 -2505 1686 195 - Objective General Appearance: positive: No acute distress, Alert. negative: Lethargic Eyes Bilateral: positive: Normal inspection, PERRL, No lid inflammation, Co njunctivae nml ENT: positive: ENT inspection nml, Pharynx nml, No signs of dehydration. negative: Purulent nasal drainage, Pharyngeal erythema, Oral lesions Neck: positive: Nml inspection, Thyroid nml, No JVD. negative: Trachea midline, Thyromegaly, Lymphadenopathy (R), Lymphadenopathy (L), Stiff neck, Swelling/bruising, Tracheal deviation Respiratory: positive: Chest non-tender, No respiratory distress. negative: Wheezes, Rales, Rhonchi Cardiovascular: positive: Regular rate & rhythm, No murmur, No gallop. negative: Irregularly irregular, Extrasystoles, Tachycardia, Bradycardia, JVD present, Systolic murmur, Diastolic murmur Peripheral Pulses: 2+ Radial (R), 2+ Radial (L), 2+ Dorsalis pedis (R), 2+ Dorsalis pedis (L) Abdomen: positive: Non-tender, No organomegaly, Nml bowel sounds, No distention. negative: Tenderness, Guarding, Rebound Back: positive: Nml inspection. negative: CVA tenderness (R), CVA tenderness (L) Skin: positive: Color nml, No rash, Warm, Dry, Decubitus. negative: Cyanosis, Diaphoresis, Pallor Extremities: positive: Non-tender. negative: Calf tenderness, Joint swelling, Abhijit's sign/cords Neurologic/Psychiatric: positive: Oriented x3, Sensation nml, Mood/affect nml. negative: Weakness, Sensory loss, Facial droop, Slurred/abnml speech, Depressed mood/affect - Lab Results Fish Bones: 03/11/19 05:45 03/11/19 05:45 Other Labs: Lab Results x24hrs 03/11/19 03/11/19 03/08/19 Range/Units 05:45 05:45 04:15 WBC 6.8 (4.8-10.8) x10^3/uL RBC 3.82 L (4.70-6.10) 10^6/uL Hgb 9.9 L (14.0-18.0) g/dL Hct 32.1 L (42.0-52.0) % MCV 84.0 (80.0-94.0) fL MCH 25.9 L (27.0-31.0) pg MCHC 30.8 L (32.0-36.0) g/dL RDW 17.6 H (12.0-15.0) % Plt Count 161 (130-450) 10^3/uL MPV 8.6 (7.4-11.4) fL Neut # (Auto) 4.3 (1.5-6.6) 10^3/uL Lymph # (Auto) 1.0 L (1.5-3.5) 10^3/uL [place] # (Auto) 0.9 (0.0-1.0) 10^3/uL Eos # (Auto) 0.6 (0.0-0.7) 10^3/uL Baso # (Auto) 0.0 (0.0-0.1) 10^3/uL Absolute Nucleated RBC 0.00 x10^3/uL Nucleated RBC % 0.0 /100WBC Sodium 135 (135-145) mmol/L Potassium 3.8 (3.5-5.0) mmol/L Chloride 95 L (101-111) mmol/L Carbon Dioxide 29 (21-32) mmol/L Anion Gap 11.0 (6-13) BUN 7 (6-20) mg/dL Creatinine 1.0 (0.6-1.2) mg/dL Estimated GFR (MDRD) 77 L (>89) Glucose 101 H (70-100) mg/dL Calcium 8.5 (8.5-10.3) mg/dL Levetiracetam 25.1 (12.0-46.0) mcg/mL ABX Reporting Has patient been on IV antibiotics over the past 48 hours?: Yes Sepsis Event Note (H) - Evaluation Current Stage of Sepsis: Ruled out Assessment/Plan - Problem List (1) Diastolic heart failure with preserved ejection fraction Impression: 03/11 improved. pt has no respiratory distress. plan: continue lasix 40 mg daily now. continue fluid restriction 2200ml daily lab and vital monitor 03/10 improved. pt report he feel better. pt has 94% sats on 2 liter of O2 supplement. BNP is down to 125 from previous 478 switch to PO lasix continue lab, tele and vital monitor 03/09 pt report he feel better and breath is better. his BNP is down to 184 from 478 in the admission, and close to pt's BNP baseline about 100 continue diuretics continue lab, tele and vital monitor 03/08 improved. pt report he felt his breath better. it was likely caused by combinations of pt's prior alcohol abuse, tobacco abuse, medical non-compliance, hx of cancer. according to recent twice ECHO, pt has 60-65% EF without regional wall motion abnormality, but increase RSVP to 79mmhg and severe abnormal right heart pressure. pt present full overload, and increase bilateral leg edemal, and BNP. continue IV of Lasix daily lab monitor. vital monitor, special monitor pt's BP to see if pt can tolerate diuretics continue daily weight, fluid restriction, regular diet without reduced of sodium now because of pt's sodium is low cellulitis with Fever 03/11 pt had fever again at 38.8 F on yesterday afternoon. pt present bilateral foot warm with mild to moderate erythema. pt also had chronic foot ulcer, left lateral foot ulcer. pt had no fever since from yesterday afternoon continue Zosyn and started on Vancomycin blood culture preliminary was negative for bacteremia wound culture wound provider consult, followup wound care by nurse pt's CXR and UA likely are negative for infection 03/10 pt has fever on last night, unknown etiology now will check CXR, UA blood culture is pending now start on Zosyn Shortness of breath 03/11 improved. continue albuterol and Duoneb breath treatment PRN continue supplement of O2 as needed 03/10 improved. pt is comfortable eating his breakfast, no respiratory distress now. continue albuterol and Duoneb breath treatment PRN continue supplement of O2 as needed 03/09 great improved now. pt has no respiratory distress and comfort sleep at the chair now. pt is without O2 dependent at home. now pt has 95% sats on 3 liter of O2, we will try to wane down of O2 supplement. pt's SOB is possible combination of acute on chronic diastolic CHF, pt has RVSP 79 mmHG in new ECHO with significant pulmonary hypertension, COPD with current cigarette smoker, and metastatic lung cancer. continue diuretics continue albuterol and Duoneb breath treatment PRN Hyponatremia 03/11 resolved 03/10 stable, Na 131 now continue lab monitor 03/09 improved. today Na is 132 continue diuretics continue lab monitor 03/08 improved. Na is 128 from 121 in admission. pt has hx of hyponatremia. it is likely hypervolume with hyponatremia continue diuretics continue lab monitor COPD (chronic obstructive pulmonary disease) without exacerbation 03/08 stable, pt is still current cigarette smoker. pt has hx of COPD continue O2 supplement as needed continue albuterol and Duoneb as needed PVD (peripheral vascular disease) stable, pt present Recurrent wounds, status post left toe amputation (middle 3 toes) continue wound care in [facility] clinic advise pt cease cigarette smoking Chronic foot ulcers stable, consulted with wound care provider, will followup continue elevate lower extremities, monitor infection BPH History of urinary retention, continue Flomax. pt has lower BP, will consider add Proscar if pt can tolerate pt has Santos now, will try off Santos to see pt can urinate by himself. Urinary retention-resolved 03/10 resolved. pt can urine by himself 03/09 we will try d/c pt's santos and let pt urinate by himself continue I&O bladder scan by nurse protocol pt was Noted on his hx of prior hospitalization, but patient had refused a santos in the past, "they hurt too much" pt had difficult to urinate and Since patient will be getting high dose diuretics and remains profoundly short of breath, orders to insert a santos plan to remove Santos on tomorrow, and monitor pt if he can urinate by himself monitor I&O Chronic pain syndrome chronic, continue home pain regimen Brain cancer stable AMS, pt denies headache. Status post craniotomy in 2017, status post gamma knife continue seizures meds Seizure disorder stable, pt has no seizure in hospital. it was Likely due to craniotomy to remove tumors from metastatic disease continue Takes Keppra seizure precaution Metastatic non-small cell lung cancer stable, Status post chemotherapy continue support, supplement O2 as needed Alcohol abuse pt has hx of alcohol abuse Patient states that he has cut down recently advise pt reduce and cease alcohol intake Tobacco dependence pt has chantix order, encourage pt quit tobacco abuse Depression stable. continue home meds Visual impairment stable, consult social science manager for safety discharge Inadequate social support continue support, consult with social science manager Medical non-compliance pt continue medical non-compliance. pt report he took his potassium dosage and lasix dosage by himself's need, not according to provider's instructions. advise followup medical recommendations. weakness 03/11 continue PT/OT 03/10 continue PT/OT, followup recommendation for d/c planning pt present profound weakness, consult with PT/OT, followup recommendations.
[2019-03-11 16:54] LABS: VANCOMYCIN,TROUGH 29.5 ug/mL (10.0-20.0)
[2019-03-11] MEDS: SACCHAROMYCES BOULARDII 250 MG CAPSULE PO SCH (17:06)
[2019-03-11] MEDS: CARBOXYMETHYLCELLULOSE OPHTH DROPS EACHEYE PRN (17:13)
[2019-03-11] MEDS: HYDROCORTISONE 1% CREAM 28 GM TUBE TOP SCH (21:31)
[2019-03-11] MEDS: MONTELUKAST 10 MG TABLET PO SCH (21:32)
[2019-03-11] MEDS: ONDANSETRON ODT 4 MG TABLET TL PRN (23:42)
[2019-03-12] MEDS: LORazepam 1 MG TABLET PO PRN (00:06)
[2019-03-12] MEDS: CARBOXYMETHYLCELLULOSE OPHTH DROPS EACHEYE PRN (00:07)
[2019-03-12] MEDS: PIPERACILLIN/TAZOBACTAM 3.375 GM in SODIUM CHLORIDE 0.9% MINIBAG 100 ML IV SCH ×3 (00:07→12:20)
[2019-03-12] MEDS: SODIUM CHLORIDE FLUSH 0.9% 10 ML SYRINGE IVP SCH ×2 (00:08→05:49)
--- NOTE | 2019-03-12 02:23 | Ultrasound Report ---
Reason: Left lower extremity pain and swelling. Procedure Date: 03/12/2019 Accession Number: [id number] / [id number] Procedure: US - Duplex Venous Limited CPT Code: FULL RESULT: EXAM: LEFT LOWER EXTREMITY VENOUS ULTRASOUND EXAM DATE: 03/12/2019 12:17 AM CLINICAL HISTORY: Left lower extremity pain and swelling. COMPARISON: None. TECHNIQUE: Real-time sonographic vascular imaging was performed by the chemical equipment sales engineer through the lower extremity utilizing both color-flow and Doppler spectral analysis. Multiple traffic workforce representative static images were saved for review. FINDINGS: Common Femoral Vein (CFV): No evidence of thrombus. CFV-GSV Junction: No evidence of thrombus. Profunda Femoral Vein (PFV): No evidence of thrombus. Femoral Vein (FV) Prox: No evidence of thrombus. Femoral Vein (FV) Mid: No evidence of thrombus. Femoral Vein (FV) Dist: No evidence of thrombus. Popliteal Vein: No evidence of thrombus. Calf Veins: Suboptimally visualized. Contralateral Right CFV: No evidence of thrombus. Other: None. IMPRESSION: No evidence for deep venous thrombosis. RADIA
[2019-03-12] MEDS: oxyCODONE 5 MG TABLET PO PRN ×3 (03:51→18:07)
[2019-03-12 05:45] LABS: BASOPHILS % (AUTO) 0.6 %; EOSINOPHILS # (AUTO) 0.6 10^3/uL (0.0-0.7); HGB - HEMOGLOBIN 9.8 g/dL (14.0-18.0); LYMPHOCYTES # (AUTO) 1.2 10^3/uL (1.5-3.5); LYMPHOCYTES % (AUTO) 21.8 %; MEAN CORPUSCULAR HEMOGLOBIN 25.9 pg (27.0-31.0); MEAN CORPUSCULAR HGB CONC 30.8 g/dL (32.0-36.0); MEAN CORPUSCULAR VOLUME 83.9 fL (80.0-94.0); MEAN PLATELET VOLUME 8.7 fL (7.4-11.4); MONOCYTES # (AUTO) 0.7 10^3/uL (0.0-1.0); MONOCYTES % (AUTO) 13.1 %; NEUTROPHILS # (AUTO) 2.9 10^3/uL (1.5-6.6); NEUTROPHILS % (AUTO) 53.3 %; PLT - PLATELET COUNT 168 10^3/uL (130-450); RED BLOOD COUNT 3.79 10^6/uL (4.70-6.10); RED CELL DISTRIBUTION WIDTH 17.5 % (12.0-15.0); WHITE BLOOD COUNT 5.4 x10^3/uL (4.8-10.8)
[2019-03-12] MEDS: HYDROmorphone 1 MG/ML CARPUJECT IVP PRN ×2 (05:49→16:19)
[2019-03-12 05:55] LABS: CALCIUM 8.8 mg/dL (8.5-10.3); CREATININE 0.8 mg/dL (0.6-1.2)
[2019-03-12 05:56] LABS: VANCOMYCIN,RANDOM 15.6 ug/mL
[2019-03-12] MEDS: PANTOPRAZOLE 40 MG TABLET PO SCH (06:30)
[2019-03-12] MEDS ORDERED: VANCOMYCIN INJ 1.5 GM in SODIUM CHLORIDE 0.9% 500 ML IV SCH (09:00)
[2019-03-12] MEDS: POLYETHYLENE GLYCOL 3350 17 GM PACKET PO SCH (09:38)
[2019-03-12] MEDS: GABAPENTIN 400 MG CAPSULE PO SCH (09:40)
[2019-03-12] MEDS: BENZOCAINE/MENTHOL LOZENGE MM PRN (09:40)
[2019-03-12] MEDS: FUROSEMIDE 40 MG TABLET PO SCH (09:40)
[2019-03-12] MEDS: DOCUSATE SODIUM 250 MG CAPSULE PO SCH (09:40)
[2019-03-12] MEDS: MULTIVITAMIN W/MINERALS TABLET PO SCH (09:41)
[2019-03-12] MEDS: levETIRAcetam 250 MG TABLET PO SCH (09:41)
[2019-03-12] MEDS: guaiFENesin 600 MG TABLET PO SCH (09:41)
[2019-03-12] MEDS: DIGOXIN 125 MCG TABLET PO SCH (09:41)
[2019-03-12] MEDS: TAMSULOSIN 0.4 MG CAPSULE PO SCH (09:41)
[2019-03-12] MEDS: SPIRONOLACTONE 25 MG TABLET PO SCH ×2 (09:41→16:36)
[2019-03-12] MEDS: SACCHAROMYCES BOULARDII 250 MG CAPSULE PO SCH ×2 (09:42→16:36)
[2019-03-12] MEDS: oxyCODONE ER 10 MG TABLET PO SCH (09:42)
[2019-03-12] MEDS: ENOXAPARIN 40 MG/0.4 ML SYRINGE SUBQ SCH (09:42)
[2019-03-12] MEDS: HYDROCORTISONE 1% CREAM 28 GM TUBE TOP SCH (10:14)
[2019-03-12] MEDS: SODIUM CHLORIDE FLUSH 0.9% 10 ML SYRINGE IVP PRN ×3 (12:20→18:00)
[2019-03-12] MEDS ORDERED: SULFAMETH/TRIMETH DS 800/160 MG TABLET PO SCH (15:10)
--- NOTE | 2019-03-12 15:10 | Discharge Plan ---
Discharge Plan Problem Reviewed?: Yes Disposition: 06 Home Health Service Condition: Poor Prescriptions: Doxycycline Hyclate 100 mg PO BID #14 capsule Furosemide [Lasix] 40 mg PO DAILY #10 tablet Spironolactone [Aldactone] 25 mg PO BIDWM #20 tablet Varenicline Tartrate [Chantix] 0.5 mg PO DAILY #11 tablet Varenicline Tartrate [Chantix] 1 mg PO BID #60 tablet Diet: Cardiac Activity Restrictions: Activity as Tolerated Shower Restrictions: No (fall precaution, caregiver closely monitor) Instruction Topics: Doxycycline tablets or capsules, Furosemide tablets, Spironolactone tablets, Oxygen Home Use, ED Smoking Cessation Health Concerns: chronic wound ulcer care, diastolic heart failure, current smoker with home O2 usage, medical non-compliance Plan of Treatment: home health skill nurse and [facility] [place] [facility] clinic wound care are arranged for your chronic wound ulcer care, please followup. you are also prescribed antibiotics doxycycle to finish the treatment course according to your recently wound culture study. you were found to have severe abnormal right heart pressure. you are prescribed Lasix and increase of spironolactone dosage, please followup out-pt salsa dance instructor for further management, and followup [facility] CHF classes. You are evaluated and qualified for home O2. please followup RT instruction how to use home O2. advise you quit cigarette smoking. please followup out-pt community service specialist and [facility] pulmonary rehab. You are strongly advised for medical compliance. You are also arranged for home health PT/OT/AIDE/skill nurse Care Goals: stabilization and improvement Assessment: assessment as the above Additional Instructions or Follow Up instructions: you may followup your PCP in one week, followup your salsa dance instructor as out-pt. Should your symptoms return or worsen, you may present ER or call 911 for help Follow-Up Care: [facility] - Pulmonary, [facility] - CHF Classes, Home Health - RN, Home Health - PT, Home Health - OT, [facility] [place] Clinic - Wound/Ostomy No Smoking: If you smoke, Please STOP! Call for help. Follow-up with: Jodee Lara PA-C [Primary Care Provider] -
--- NOTE | 2019-03-12 15:46 | DISCHARGE SUMMARY ---
Discharge Summary Discharge Date: 03/12/19 Discharging Provider: SHORT Primary Care Provider: Jodee Deal Condition at Discharge: Poor Discharge Disposition: Home Health Service Discharge Facility Name: home - DIAGNOSES Admission Diagnoses: 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 Hyponatremia Cor Pulmonale COPD (chronic obstructive pulmonary disease) without exacerbation PVD (peripheral vascular disease) Chronic foot ulcers BPH Urinary retention Chronic pain syndrome Brain cancer Seizure disorder Metastatic non-small cell lung cancer Alcohol abuse Tobacco dependence Depression Visual impairment Inadequate social support Medical non-compliance Discharge Diagnoses with Status of Each Condition: (1) Diastolic heart failure with preserved ejection fraction stable. new ECHO reveals pt has preserved EF but with severe abnormal right heart pressure. BNP was down to his baseline after treatment. pt was prescribed Lasix and increase his spironolactone dosage pt refused to have fluid restriction in the hospital, per Dr. Ordonez reported. Medical non-compliance remain problem. pt state he decide which medications he will take at home, for example either Torsemide or Lasix. He also state sometime he took potassium, sometime he did not take, dependent on how he view himself. pt was strongly advised and educated for medical compliance. foot ulcer with Fever fever was resolved. foot ulcer continue to be cared by home health RN and [facility] wound care, followup wound care provider RAMAN Matthews. pt was prescribed Doxycycline, according to wound culture study from about one month ago Shortness of breath improved, pt walked around 300 ft with RT and PT Hyponatremia resolved COPD (chronic obstructive pulmonary disease) without exacerbation stable, pt is still current cigarette smoker. pt was discharged with home oxygen. pt was hypoxic with ambulation with room air O2 sats of 85%, with exertion on 3 lpm, his sats were 92% at 150 ft. I am ordering home O2 at 3 lpm via nasal cannula with ambulation pt was strongly advise to quit cigarette smoking, special he is O2-dependent. pt understand it is very dangerous when he use O2 at the same time he smokes PVD (peripheral vascular disease) stable, pt present Recurrent wounds continue wound care in [facility] clinic, and home health RN, followup wound care provider RAMAN Hicks advise pt cease cigarette smoking Chronic foot ulcers stable, pt present Recurrent wounds continue wound care in [facility] clinic, and home health RN, followup wound care provider STRINGS TEACHER Ms. Sabula. advise pt cease cigarette smoking BPH stable Urinary retention-resolved resolved Chronic pain syndrome stable, continue home pain regimen Brain cancer stable Seizure disorder stable, continue home Keppra Metastatic non-small cell lung cancer stable Alcohol abuse pt state he reduced to take alcohol already Tobacco dependence pt requested chantix order, pt already had chantix order in his home meds list pt was strongly advise to quit cigarette smoking, special he is O2-dependent. pt understand it is very dangerous when he use O2 at the same time he smokes Depression stable. continue home meds Visual impairment stable, pt is arranged for home health PT/OT/social and political studies professor/home performance consultant/home health RN Inadequate social support continue support, pt is arranged for home health PT/OT/social and political studies professor/home performance consultant/home health RN pt refused to be d/c to nurse facility and SNF pt did not qualify for swing bed in hospital. pt either refused to have PT(I saw pt refused to have PT in the morning on 03/12/19) or did not cooperate with PT. pt's wound care did not qualify for swing bed weakness improved. continued home health PT/OT - HPI History of Present Illness: Pal Wise is an ill appearing 59-year-old male who looks older than what he appears with a complex medical history including metastatic adenocarcinoma of the lung with mets to the brain, status post gamma knife, hypertension, hyperlipidemia, coronary artery disease, peripheral vascular disease, osteomyelitis, COPD, seizure disorder, GERD, diverticulits, chronic constipation, BPH, central venous access to left chest, opiate dependence on oxycodone, ischemic peripheral disease, nonhealing ulcer to the right foot, anemia, current every day smoker/tobacco dependence, & medical noncompliance. Previously was seeing Dr. Jodee Castillo as primary hem/oncologist, now sees a Dr. Arellano at [facility]. EMS brought the patient in from home with a primary complaint of shortness of breath. Imaging showed a persistent right pleural effusion, and right mid lower lung opacity which was unchanged from 02/22/[address] Labs show severe hyponatremia with a sodium of 121, chloride of 81, BUN 5, normal creatinine of 0.8, GFR of 100, and an elevated BNP of 478 (the highest documented value, on 02/25/2019 it was 113). On my exam, the patient had tachypnea, has baseline orthopnea, had a charted oxygen saturation of 79% on room air (does not have home oxygen), massive skin edema (anasarca) noted to BLEs with very taught, shinny appearance to legs, slight scrotal edema, profound abdominal edema, dyspnea (above baseline) that persists despite several hours of waiting in the ED after IV lasix was given. Vital signs showed a heart rate of 99, light blood pressure of 101/71, respiratory rate 24, and a normal temperature of 36.6 C. The patient explained that his first symptoms began about 3 days ago in which he describes that "his lungs just start filling up with fluid like they always do". He states that his neck pain has been worse, his mucous has been increased, increased cough, increased sore throat, difficulty sleeping, poor appetite, and nausea without vomiting. He denies recent falls, increased dizziness, chest pain, confusion, bleeding, increased BLE pain or issues with infections. He states that he has told his PCP that he wishes to stop smoking, but she has not prescribed Chantix, of which he wishes to start while here - CONSULTS | PROCEDURES Consultations: RAMAN Melgoza Procedures: wound care, selective debridement - HOSPITAL COURSE Hospital Course: pt was admitted for severe hyponatremia, and shortness of breath with fluid overloaded. pt was found to have Na 121 and fluid over-loaded with BNP over 400. Pt was treated with IV of diuretics. after treatment, pt's hyponatremia was resolved. pt's shortness of breath is significantly improved. BNP was down to around 120. pt walked at hallway around 300ft. In the hospital course, pt refus ed to have fluid restriction, and IV of diuretics because he feel "thirsty," but pt remain normal creatinine and renal function. pt did not qualify for swing bed in hospital. pt either refused to have PT(I saw pt refused to have PT in the morning on 03/12/19) or did not cooperate with PT. pt's wound care did not qualify for swing bed either. pt refused to be d/c to nurse facility and SNF. Home health PT/OT/RN/AIDE were arranged for pt. pt was advised to followup [facility] clinic wound care, cardiac CHF and pulmonary rehab. The detail of hospital course is as the below. (1) Diastolic heart failure with preserved ejection fraction stable. new ECHO reveals pt has preserved EF but with severe abnormal right heart pressure. BNP was down to his baseline after treatment. pt was prescribed oral Lasix and increase his spironolactone dosage pt refused to have fluid restriction in the hospital, per Dr. Ordonez reported. Medical non-compliance remain problem. pt state he decide which medications he will take at home, for example either Torsemide or Lasix. He also state sometime he took potassium, sometime he did not take, dependent on how he view himself. pt was strongly advised and educated for medical compliance. foot ulcer with Fever fever was resolved. foot ulcer continue to be cared by home health RN and [facility] wound care, followup wound care provider RAMAN Matthews. pt was prescribed Doxycycline, according to wound culture study from about one month ago Shortness of breath improved, pt walked around 300 ft with RT and PT Hyponatremia resolved COPD (chronic obstructive pulmonary disease) without exacerbation stable, pt is still current cigarette smoker. pt was discharged with home oxygen. pt was hypoxic with ambulation with room air O2 sats of 85%, with exertion on 3 lpm, his sats were 92% at 150 ft. I am ordering home O2 at 3 lpm via nasal cannula with ambulation pt was strongly advise to quit cigarette smoking, special he is O2-dependent. pt understand it is very dangerous when he use O2 at the same time he smokes PVD (peripheral vascular disease) stable, pt present Recurrent wounds continue wound care in [facility] clinic, and home health RN, followup wound care weii Sutherland. advise pt cease cigarette smoking Chronic foot ulcers stable, pt present Recurrent wounds continue wound care in [facility] clinic, and home health RN, followup wound care provider RAMAN Matthews. advise pt cease cigarette smoking BPH stable Urinary retention-resolved resolved Chronic pain syndrome stable, continue home pain regimen Brain cancer stable Seizure disorder stable, continue home Keppra Metastatic non-small cell lung cancer stable Alcohol abuse pt state he reduced to take alcohol already Tobacco dependence pt requested chantix order, pt already had chantix order in his home meds list pt was strongly advise to quit cigarette smoking, special he is O2-dependent. pt understand it is very dangerous when he use O2 at the same time he smokes Depression stable. continue home meds Visual impairment stable, pt is arranged for home health PT/OT/social and political studies professor/home performance consultant/home health RN Inadequate social support continue support, pt is arranged for home health PT/OT/social and political studies professor/home performance consultant/home health RN pt refused to be d/c to nurse facility and SNF pt did not qualify for swing bed in hospital. pt either refused to have PT(I saw pt refused to have PT in the morning on 03/12/19) or did not cooperate with PT. pt's wound care did not qualify for swing bed weakness improved. continued home health PT/OT - ALLERGIES Allergies/Adverse Reactions: Allergies Allergy/AdvReac Type Severity Reaction Status Date / Time BRONWYN Inhibitors Allergy Emesis Verified 03/07/19 09:47 amoxicillin [From Augmentin] Allergy Emesis Verified 03/07/19 09:47 clavulanic acid Allergy Emesis Verified 03/07/19 09:47 [From Augmentin] lisinopril Allergy "THROAT Verified 03/07/19 09:47 SWELLING" - MEDICATIONS Home Medications: Ambulatory Orders Medication Instructions Recorded Confirmed RX: Lorazepam [Ativan] 1 mg PO Q8HR PRN 09/23/15 03/07/19 RX: Tamsulosin [Flomax] 0.4 mg PO DAILY 06/29/16 03/07/19 RX: Oxycodone HCl 10 - 20 mg PO Q4HR PRN MDD 8 tabs 07/26/17 03/07/19 RX: Lidocaine Ointment 5% 1 applic TOP PRN PRN 08/20/17 03/07/19 [Xylocaine Ointment 5%] RX: Gabapentin [Neurontin] 1,600 mg PO BID 09/27/17 03/07/19 RX: Levetiracetam [Keppra] 500 mg PO BID #30 tablet 11/23/17 03/08/19 RX: Ondansetron Odt [Zofran Odt] 4 mg TL Q6H PRN #15 tablet 03/19/18 03/07/19 RX: Albuterol Sulf [Ventolin Hfa 2 puffs INH Q4HR PRN 05/09/18 03/07/19 Inhaler] RX: Melatonin 3 - 6 mg PO QPM PRN 05/09/18 03/07/19 RX: Nystatin 5 ml PO QID PRN 10/04/18 03/07/19 RX: diphenhydrAMINE [Benadryl] 25 mg PO Q6HR PRN 10/04/18 03/07/19 RX: Chlorhexidine Gluconate 15 ml PO DAILY PRN 12/18/18 03/07/19 [Peridex] RX: Esomeprazole Magnesium [Nexium] 20 mg PO DAILY 12/18/18 03/07/19 RX: Magnesium 250 mg PO BID 12/18/18 03/07/19 RX: Oxycodone HCl [Oxycontin] 20 mg PO Q12H 12/18/18 03/07/19 RX: Polyethylene Glycol 3350 17 gm PO DAILY PRN 12/18/18 03/07/19 [Miralax] RX: Budesonide/Formoterol Fumarate 2 puffs IH BID 12/20/18 03/07/19 [Symbicort 160-4.5 Mcg Inhaler] RX: Montelukast [Singulair] 10 mg PO QPM #30 tablet 12/28/18 03/07/19 RX: Ipratropium/Albuterol [Duoneb] 3 ml INH Q4HR PRN 02/15/19 03/07/19 RX: Loperamide HCl [Loperamide] 2 mg PO QID PRN 02/23/19 03/07/19 RX: Digoxin [Lanoxin] 125 mcg PO DAILY #10 tablet 02/25/19 03/07/19 RX: Ferrous Sulfate 325 mg PO DAILY #15 tablet 02/25/19 03/08/19 Varenicline Tartrate [Chantix] 0.5 mg PO DAILY #11 tablet 03/07/19 Varenicline Tartrate [Chantix] 1 mg PO BID #60 tablet 03/07/19 RX: Doxycycline Hyclate 100 mg PO BID #14 capsule 03/12/19 RX: Furosemide [Lasix] 40 mg PO DAILY #10 tablet 03/12/19 RX: Spironolactone [Aldactone] 25 mg PO BIDWM #20 tablet 03/12/19 - PHYSICAL EXAM AT DISCHARGE General Appearance: positive: No acute distress, Alert. negative: Lethargic Eyes Bilateral: positive: Normal inspection, PERRL, No lid inflammation, Conjunctivae nml ENT: positive: ENT inspection nml, Pharynx nml, No signs of dehydration. negative: Purulent nasal drainage, Pharyngeal erythema, Oral lesions Neck: positive: Nml inspection, Thyroid nml, No JVD, Trachea midline. negative: Thyromegaly, Lymphadenopathy (R), Lymphadenopathy (L), Stiff neck, Swelling/bruising, Tracheal deviation Respiratory: positive: Chest non-tender, No respiratory distress. negative: Wheezes, Rales, Rhonchi Cardiovascular: positive: Regular rate & rhythm, No murmur, No gallop. negative: Irregularly irregular, Extrasystoles, Tachycardia, Bradycardia, JVD present, Systolic murmur, Diastolic murmur Peripheral Pulses: positive: 2+ Abdomen: positive: Non-tender, No organomegaly, Nml bowel sounds, No distention. negative: Tenderness, Guarding, Rebound Back: positive: Nml inspection. negative: CVA tenderness (R), CVA tenderness (L) Skin: positive: Color nml, Warm, Dry. negative: Cyanosis, Diaphoresis, Pallor Extremities: positive: Non-tender, Full ROM. negative: Calf tenderness, Abhijit's sign/cords Neurologic/Psychiatric: positive: Oriented x3, Sensation nml. negative: Weakness, Sensory loss, Facial droop, Slurred/abnml speech, Depressed mood/affect - LABS Result Diagrams: 03/12/19 05:35 03/12/19 05:35 - SEPSIS Current Stage of Sepsis: Ruled out - FOLLOW UP Follow Up: home health skill nurse and [facility] wound care are arranged for your chronic wound ulcer care, please followup Ms Matthews, wound care speciality provider. you are also prescribed antibiotics doxycycle to finish the treatment course accord ing to your recently wound culture study. you were found to have severe abnormal right heart pressure. you are prescribed Lasix and increase of spironolactone dosage, please followup out-pt transit planning manager for further management, and followup [facility] CHF classes. You are evaluated and qualified for home O2. please followup RT instruction how to safely use home O2. advise you quit cigarette smoking. please followup out-pt content production specialist and [facility] pulmonary rehab. You are strongly advised for medical compliance. You are also arranged for home health PT/OT/AIDE/skill nurse you may followup your PCP in one week, followup your transit planning manager as out-pt. Should your symptoms return or worsen, you may present ER or call 911 for help - TIME SPENT Time Spent in Discharge (Minutes): 70
[2019-03-12] MEDS: DOXYCYCLINE 100 MG TABLET PO SCH ×2 (16:19→17:46)
[2019-03-12 18:19] VITALS: BP 111/62
== END 2019-03-12 18:28 | disposition home health service (06) | DRG 291 ==
LOC: EDUNIT# → ED 09:41 → MS2 13:49
PROVIDERS: ADMIT Nurse Practitioner; ATTEND Nurse Practitioner Gerontology
PROC: 0HDMXZZ Extraction of Right Foot Skin, External Approach (ICD-10-PCS; principal; 2019-03-11)
PROC: 0JDR3ZZ Extraction of Left Foot Subcutaneous Tissue and Fascia, Percutaneous Approach (ICD-10-PCS; 2019-03-11)
DX: I11.0 Hypertensive heart disease with heart failure (principal); Q04.3 Other reduction deformities of brain; E87.1 Hypo-osmolality and hyponatremia; C34.90 Malignant neoplasm of unspecified part of unspecified bronchus or lung; C79.31 Secondary malignant neoplasm of brain; F11.20 Opioid dependence, uncomplicated; L03.116 Cellulitis of left lower limb; L97.321 Non-pressure chronic ulcer of left ankle limited to breakdown of skin; L97.411 Non-pressure chronic ulcer of right heel and midfoot limited to breakdown of skin; L97.522 Non-pressure chronic ulcer of other part of left foot with fat layer exposed; I50.33 Acute on chronic diastolic (congestive) heart failure; I27.81 Cor pulmonale (chronic); J44.9 Chronic obstructive pulmonary disease, unspecified; R09.02 Hypoxemia; I42.6 Alcoholic cardiomyopathy; I73.9 Peripheral vascular disease, unspecified; G62.9 Polyneuropathy, unspecified; N40.1 Benign prostatic hyperplasia with lower urinary tract symptoms; R33.8 Other retention of urine; R32 Unspecified urinary incontinence; R35.1 Nocturia; R35.0 Frequency of micturition; G89.29 Other chronic pain; M54.6 Pain in thoracic spine; G40.909 Epilepsy, unspecified, not intractable, without status epilepticus; F10.10 Alcohol abuse, uncomplicated; F17.210 Nicotine dependence, cigarettes, uncomplicated; F32.9 Major depressive disorder, single episode, unspecified; I12.9 Hypertensive chronic kidney disease with stage 1 through stage 4 chronic kidney disease, or unspecified chronic kidney disease; N18.3 Chronic kidney disease, stage 3 (moderate); Z74.2 Need for assistance at home and no other household member able to render care; E78.5 Hyperlipidemia, unspecified; I25.10 Atherosclerotic heart disease of native coronary artery without angina pectoris; K21.9 Gastro-esophageal reflux disease without esophagitis; K59.09 Other constipation; D64.9 Anemia, unspecified; D69.6 Thrombocytopenia, unspecified; G47.33 Obstructive sleep apnea (adult) (pediatric); H54.7 Unspecified visual loss; R53.1 Weakness; J32.9 Chronic sinusitis, unspecified; M20.5X2 Other deformities of toe(s) (acquired), left foot; R26.89 Other abnormalities of gait and mobility; D84.1 Defects in the complement system; E66.9 Obesity, unspecified; Z68.28 Body mass index [BMI] 28.0-28.9, adult; G25.81 Restless legs syndrome; K40.90 Unilateral inguinal hernia, without obstruction or gangrene, not specified as recurrent; Z74.09 Other reduced mobility; H26.9 Unspecified cataract; Z99.81 Dependence on supplemental oxygen; Z91.19 Patient's noncompliance with other medical treatment and regimen; Z79.51 Long term (current) use of inhaled steroids; Z87.01 Personal history of pneumonia (recurrent)
CPT/HCPCS: 36415; 71045; 76775; 80048; 80053; 80162; 80177; 80202; 80306; 81001; 83036; 83605; 83690; 83735; 83880; 84484; 85025; 87040; 87086; 93005; 93306; 93971; 94640; 94761; 97110; 97116; 97162; 97166; 97530; 99284; 99285; A9270; J1170; J1650; J1940; J3370; J7040; J8499; Q0162; 81003

== ENCOUNTER 2019-03-21 16:10 | Outpatient (CLI) | payer MEDICAID ==
--- NOTE | 2019-03-21 22:40 | CONSULTATION NOTE ---
Palliative Care Follow Up - Referral Referring Provider: Dr. James Gutierrez (Dr. Jodee Castillo) Time of Visit: 3815-3013 Referral setting: Home Referral Reason: CHF/Acute on Chronic Pain/Medication Adherence - Information Sources Records reviewed: Previous records reviewed History/Review of Systems obtained from: Patient Exam limitations: Clinical condition (patient with poor STM and cataracts; cannot see/read inst. or labels) - History of Present Illness Update Brief HPI Update: This is a feisty 59-year-old gentleman who has metastatic adenocarcinoma lung with mets to the brain. He was originally diagnosed in 2015, and received radiation, as well as status post craniotomy and gamma knife therapy in 2017. He did complete pembrolizumab, immunotherapy with the last dose on 04/21/2018 with ongoing surveillance. His most pressing problems actually has to do with his acute on chronic CHF, hyponatremia, recurrent chronic cellulitis and foot ulcers. Patient has not been maximally managed, nor medication compliant for a large number of reasons, including he has severe cataracts, and poor social support. Patient was most recently hospitalized and discharged from [facility] on 03/12/2018 for acute combined systolic and diastolic stage C congestive heart failure. His diuretic was changed from torsemide to furosemide, patient is seeing his PCP, at this point in time patient is back on torsemide unclear if this was intentional or patient's choice. He is fortunately due to follow-up with plumber's assistant finally on 04/10 and hopefully we can get better control and recommendations regarding medication management. He has read recurrent hyponatremia which is multifactorial, patient continues to drink beer, he is down to 2 a day, he was drinking large amounts of water, patient does have underlying COPD, with has had recurrent pneumonia and exacerbations. 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 He has frequent and ongoing chronic foot ulcers, BPH and urinary retention, known seizure disorder, tobacco dependence, depression, and now is oxygen dependent. He requested home visit, as he was quite panicky regarding management of his medications, and request the support. Patient is being managed by palliative care for his acute on chronic pain. He is somewhat maximized on his gabapentin 1600 mg twice daily with support of opioids of OxyContin 20 mg twice daily and oxycodone 10 mg tabs, he is not to exceed though he often does 8 tabs in 24 hours. Patient also has underlying severe anxiety disorder, easily gets overwhelmed, and has had multiple hospitalizations for a variety of reasons. He does have home health RN coming weekly, and home physical therapy weekly, and sees the wound care nurse on end of the week. He just saw his oncologist, with ongoing surveillance, planning to see his new PCP, as he is been dissatisfied with his current relationship, he had been seeing Noy CAMARGO on a regular basis and has not been able to find as steady or available PCP since then. Patient also has [place] [employer], but is not maximized in hours as cannot find a worker to work with him. He does live in a small crowded apartment room that he rents, his roommate material control supervisor of the apartments but is not connected or supportive in any way. He has a friend Libby who checks on him regularly, his son works quite a bit Alessandro, but is trying to help him as well. Social History - Living Situation Living arrangement: At home Living Situation: Other (roomate; not involved in care) Support System: Patient would be better served in a supervised and supportive environment, did almost transition to [facility] in [place], unfortunately patient still wants to continue his independence, though has had many failed attempts. His fears run along the line of they are going to "put me away" once he is placed in "a home". He relies on [facility] and senior volunteers for transportation. He is quite upset currently as told him he could not change PCPs because he had option to see someone closer to home. Though this does not make much sense is he is going to [place] regularly anyway for appointments. Medications/Allergies - Medications Home Medications: Ambulatory Orders Medication Instructions Recorded Confirmed Lorazepam [Ativan] 1 mg PO Q8HR PRN 09/23/15 03/22/19 Tamsulosin [Flomax] 0.4 mg PO DAILY 06/29/16 03/22/19 Oxycodone HCl 10 - 20 mg PO Q4HR PRN MDD 8 tabs 07/26/17 03/22/19 Lidocaine Ointment 5% [Xylocaine 1 applic TOP PRN PRN 08/20/17 03/22/19 Ointment 5%] Gabapentin [Neurontin] 1,600 mg PO BID 09/27/17 03/22/19 Levetiracetam [Keppra] 500 mg PO BID #30 tablet 11/23/17 03/22/19 Ondansetron Odt [Zofran Odt] 4 mg TL Q6H PRN #15 tablet 03/19/18 03/22/19 Albuterol Sulf [Ventolin Hfa 2 puffs INH Q4HR PRN 05/09/18 03/22/19 Inhaler] Melatonin 3 - 6 mg PO QPM PRN 05/09/18 03/22/19 Nystatin 5 ml PO QID PRN 10/04/18 03/22/19 diphenhydrAMINE [Benadryl] 25 mg PO Q6HR PRN 10/04/18 03/22/19 Chlorhexidine Gluconate [Peridex] 15 ml PO DAILY PRN 12/18/18 03/22/19 Esomeprazole Magnesium [Nexium] 20 mg PO DAILY 12/18/18 03/22/19 Magnesium 250 mg PO BID 12/18/18 03/22/19 Oxycodone HCl [Oxycontin] 20 mg PO Q12H 12/18/18 03/22/19 Polyethylene Glycol 3350 [Miralax] 17 gm PO DAILY PRN 12/18/18 03/22/19 Budesonide/Formoterol Fumarate 2 puffs IH BID 12/20/18 03/22/19 [Symbicort 160-4.5 Mcg Inhaler] Montelukast [Singulair] 10 mg PO QPM #30 tablet 12/28/18 03/22/19 Ipratropium/Albuterol [Duoneb] 3 ml INH Q4HR PRN 02/15/19 03/22/19 Loperamide HCl [Loperamide] 2 mg PO QID PRN 02/23/19 03/22/19 Digoxin [Lanoxin] 125 mcg PO DAILY #10 tablet 02/25/19 03/22/19 Ferrous Sulfate 325 mg PO DAILY #15 tablet 02/25/19 03/22/19 Spironolactone [Aldactone] 25 mg PO BIDWM #20 tablet 03/12/19 03/22/19 Torsemide 20 mg PO DAILY 03/22/19 03/22/19 - Allergies Allergies/Adverse Reactions: Allergies Allergy/AdvReac Type Severity Reaction Status Date / Time BRONWYN Inhibitors Allergy Emesis Verified 03/19/19 14:23 amoxicillin [From Augmentin] Allergy Emesis Verified 03/19/19 14:23 clavulanic acid Allergy Emesis Verified 03/19/19 14:23 [From Augmentin] lisinopril Allergy "THROAT Verified 03/19/19 14:23 SWELLING" Review of Systems - Constitutional Constitutional: reports: Fatigue. denies: Fever, Chills - Eyes Eyes: reports: Blurred vision, Vision loss - Ears, Nose & Throat Ears, Nose & Throat: reports: Hearing loss (mild), Dental decay, Other (hx of recurrent candidiasis) - Cardiovascular Cardiovascular: reports: Edema, Exertional dyspnea, Decr. exercise tolerance - Respiratory Respiratory: reports: Cough, SOB with exertion. denies: SOB at rest - Gastrointestinal Gastrointestinal: reports: Constipation, Bloating, Good appetite - Genitourinary Genitourinary: reports: Frequency, Urgency - Musculoskeletal Musculoskeletal: reports: Muscle pain, Back pain, Muscle aches, Stiffness, Limited range of motion, Muscle weakness, Joint pain, Assistive devices (uses walker at times; cane usually), Transfer issues (w/c for longer distances) - Integumentary Integumentary: reports: Rash, Dryness - Neurological Neurological: reports: General weakness, Memory problems, Slurred speech (at times usually mumbling) - Psychiatric Psychiatric: reports: Depression, Anxiety, Aggitation - Endocrine Endocrine: reports: Hypothyroidism, Intolerance to cold - Hematologic/Lymphatic Hematologic/Lymphatic: reports: Recurrent infections (cellulitis/pneumonia) - All Other Systems All Other Systems: reports: Reviewed and negative Physical Exam - Vital Signs Temperature: 97.2 C Pulse Rate: 96 Respiratory Rate: 18 O2 Saturation: 92 (2 liters at rest) Blood Pressure: 112/72 - Physical Exam General Appearance: positive: Mild distress, Anxious Eyes Bilateral: positive: Normal inspection ENT: positive: No signs of dehydration. negative: Pharyngeal erythema, Other (no current s/s candidiasis) Neck: positive: No JVD, Trachea midline, Stiff neck, Other (kyphotic neck; kyphosis/scoliosis of back and poor positioning) Cardiovascular: positive: Regular rate & rhythm Respiratory: positive: No respiratory distress, Diminished throughout. negative: Wheezes, Rales, Rhonchi Abdomen: positive: Soft, Nml bowel sounds, Distended, Obese. negative: Guarding Skin: positive: Pallor, Dryness Extremities: positive: Pedal edema, Other (Patient with poor posture, sits way hunched over, no longer can raise his head up and back, has poor truncal stability. Presents with both kyphosis and scoliosis. He spends most of his day hunched over looking at the computer, his bed is piled high with pillows, he cannot lay flat nor does he have a recliner in any sitting/chairs that can accommodate elevating his feet.) Neurologic/Psychiatric: positive: Oriented x3, Weakness, Depressed mood/affect, Flat affect Palliative Care - POLST Patient has POLST: No POLST Status: Full Code Pain: Pain unchanged, Location (He describes most of his feet sharp shooting neuropathies in his calves and feet, also reports severe pain in his neck and shoulders, his baseline pain is 8-9 over 10, with the use of oxycodone goes down to 6-7 over 10. Last for just a few hours. Sleeps very poorly, this is due to frequent urination, anxiety, and poor sleep habits as he does sleep sometimes during the day. This makes his pain more problematic and heightened.) Tiredness/Fatigue: Severe (7-10) Drowsiness/Sedation: Moderate (4-6) Nausea: Mild (1-3) Depression: Moderate (4-6) Anxiety: Severe (7-10) Dyspnea: Moderate (4-6) Anorexia: Mild (1-3) Sleep: Sleeps poorly Constipation: Yes, Intermittent constipation Feelings of wellbeing/Perceived Quality of Life: Fair, Worsening Performance Status: Patient literally has had difficulty getting back on his feet. He was to be nonweightbearing, though he was not very compliant given his living situation. He does get assistance with bathing, they are trying to work on strengthening, though are limited but they can do given his apartment is quite crowded and small and has very little social support. Ultimate goal would be when his feet are healed, to transition him to outpatient therapy. He has actually done well in the past with initiation of outpatient therapy and going regularly. - Palliative Care Discussion: Patient did agree to talk about advanced care planning today, often is quite chaotic when we meet. We discussed CODE STATUS, he reports he still wants them "to try", but but does not open his chest and work on his heart. We discussed that CPR was a "yes" or "no" decision, there was no graduation of this. It also includes intubation, and chest compressions. He did have an episode a couple months ago, where he did have CPR as he became unresponsive and pulseless, and they did break 1 of his ribs. This is thought more to do with airway obstruction. Patient does understand as far as in the future, the there may be a time when he might make a different decision, we talked about what some of those thresholds would be. It would be when he no longer is able to be independent, or if he was to be placed or needed to be cared for in a residential, if he was out of it or confused, he would want a few days to see if he was going to improve. He does not want his suffering prolonged, and the end of life he actually has thought about and considered wanting to go to a [facility], he is familiar with the old farm [place], and finds this quite comforting to think about. He has had friends on hospice before, does have an understanding of what focusing on comfort would be. He himself though does perceive himself "is a survivor" and will continue, most likely with high utilization of healthcare services. We did discuss though in the context of needing to identify a D POA, given particularly the estrangement of her daughter currently. He reports he feels like Rohit at this point his son would be a good person, and his alternative would be his daughter Sarah in [place]. I provided a D POA simple form, and requested that Rohit fill it out, he does feel like he knows 2 people he could get to witness. If not we can facilitate notarized sedation at 1 of his appointments. This would be a huge step forward to get this completed. Results - Lab Results Lab results reviewed: Yes Lab and Imaging Results: Patient's sodium on 03/19 was 133; potassium 3.5; creatinine 1.3; GFR 57; and glucose 116. Impression and Recommendations - Palliative Care Impression: This is a 59-year-old gentleman with severe and multiple comorbidities, most recently hospitalized yet again for heart failure exacerbation, he continues to receive outpatient wound care, home health services, and support from palliative care intermittently for pain and symptom management. Patient does have high symptom burden, poor social support, poor insight into his limitations and current situation, as well as acute on chronic pain. Palliative care continues to provide support as best allowed given patient's health care believes, and ongoing difficulties with medication adherence and compliance. Initiating conversations regarding advanced care planning as patient's anxiety allows. Recommendations/Counseling Done: 1. Acute on chronic heart failure. Still seems to be confusion regarding patient's ongoing medication list, patient is currently taking torsemide, was discharged on furosemide, PCP continued him on the torsemide, fortunately patient is to be seen by cardiology in the next couple weeks. Patient's lower extremity edema currently managed, patient is managing to stay within a fairly reasonable fluid restriction, with 220 ounce beers, and 3 smaller somers. Patient remains at high risk for current hospitalizations, but will continue to try and monitor also has home health RN. 2. Acute on chronic pain. Patient currently managed on for his neuropathies on gabapentin 1600 mg twice daily, patient is provided OxyContin 20 mg twice daily, as well as short acting oxycodone, he does tend to overuse. He does have naloxone in the home. Patient has been counseled multiple times around opioid safety, particularly in storage as he often reports he drops or loses or someone "takes" some of his pills and he runs short. He does understand her contract is for no early refills, and ultimate goal would be hopefully to further decrease his OxyContin in the future. His right chest and rib pain originally from his lung cancer, is almost dissipated, but does have very severe 8-9 out of 10 pain with his lower extremities and neuropathies. 3. Right foot wound. Patient is being supported currently by wound care clinic as well as home health RNs. Patient has difficulty being compliant with elevating his legs, minimizing weightbearing, and keeping his dressings clean t his is both related to his social situation as well as his poor eyesight. 4. Hyponatremia. Patient's current sodium is 133, this is actually fairly good for him. 5. COPD. Patient is using his nebulizer 2-3 times a day. Is to be oxygen dependent, he wants a portable concentrator, discussed he would not meet criteria as he is only been on oxygen short period of time. He has been instructed to wear it currently, given his history of hypoxia, intermittent confusion, and frequent COPD/CHF exacerbations. Patient does admit he does feel better on it, but does not want "his lungs to get soft" and dependent. We did discuss it does help his fatigue and his heart at this point in time to be using it on a regular basis. 6. Medication adherence we went through all his medications, he is currently taking them correctly, he was able to verbally tell me how he was taking them, he has them marked with a big letter on the top. He does quite well as long as he is not confused and overwhelmed, or hypoxic. He is feeling less anxious and looking forward to meeting a new PCP and cardiology. His goal is not to continue with these frequent hospitalizations, though he easily does call 911 and go in. 7. Advanced care planning. Patient remains quite anxious regarding his ongoing multiple health problems, and trying to manage this independently he gets easily overwhelmed. He did allow me though to discuss some advanced care planning documentation and wishes today, and was able to tolerate the conversation as well as express his needs he is a documented up and palliative care he is cur rently though still a full code. Though he is starting to talk about what thresholds and reasons he would consider differently. He has identified a D POA which is his son Rohit. Have left appropriate documentation and asked him to complete it. Palliative care will continue to provide support for pain and symptom management and anticipatory guidance. Time Spent: 50 minutes with greater than 50% of this done in counseling regarding medication management opioid safety disease process and advanced care planning.
== END 2019-03-21 16:11 | disposition home or self-care (01) ==
LOC: PC 16:10
PROVIDERS: ATTEND Nurse Practitioner Adult Health
DX: Z51.5 Encounter for palliative care (principal); C34.11 Malignant neoplasm of upper lobe, right bronchus or lung; C79.31 Secondary malignant neoplasm of brain; G89.4 Chronic pain syndrome; M25.512 Pain in left shoulder; M25.511 Pain in right shoulder; M54.2 Cervicalgia; L97.519 Non-pressure chronic ulcer of other part of right foot with unspecified severity; F10.10 Alcohol abuse, uncomplicated; D69.6 Thrombocytopenia, unspecified; I11.0 Hypertensive heart disease with heart failure; I50.43 Acute on chronic combined systolic (congestive) and diastolic (congestive) heart failure; I25.10 Atherosclerotic heart disease of native coronary artery without angina pectoris; I73.9 Peripheral vascular disease, unspecified; J44.9 Chronic obstructive pulmonary disease, unspecified; G62.9 Polyneuropathy, unspecified; H26.9 Unspecified cataract; Q04.3 Other reduction deformities of brain; E87.1 Hypo-osmolality and hyponatremia; N40.1 Benign prostatic hyperplasia with lower urinary tract symptoms; R33.8 Other retention of urine; R35.0 Frequency of micturition; R39.15 Urgency of urination; G40.909 Epilepsy, unspecified, not intractable, without status epilepticus; F17.200 Nicotine dependence, unspecified, uncomplicated; F32.9 Major depressive disorder, single episode, unspecified; F41.9 Anxiety disorder, unspecified; H91.90 Unspecified hearing loss, unspecified ear; E03.9 Hypothyroidism, unspecified; M40.209 Unspecified kyphosis, site unspecified; Z99.81 Dependence on supplemental oxygen; Z79.891 Long term (current) use of opiate analgesic; Z79.51 Long term (current) use of inhaled steroids; Z91.14 Patient's other noncompliance with medication regimen; Z87.01 Personal history of pneumonia (recurrent)
CPT/HCPCS: 99349

== ENCOUNTER 2019-04-03 01:54 | Outpatient (CLI) | payer MEDICAID | END 2019-04-03 01:55 | disposition EMS.NT | LOC: EMS 01:54 | PROVIDERS: ATTEND Surgery | DX: Z03.89 Encounter for observation for other suspected diseases and conditions ruled out (principal) ==

== ENCOUNTER 2019-04-06 20:54 | Outpatient (CLI) | payer MEDICAID | END 2019-04-06 20:55 | disposition short-term general hospital (02) | LOC: EMS 20:54 | PROVIDERS: ATTEND Surgery | DX: M79.89 Other specified soft tissue disorders (principal); M79.672 Pain in left foot; M79.671 Pain in right foot | CPT/HCPCS: A0425; A0429; A0999 ==

== ENCOUNTER 2019-04-23 11:52 | Outpatient (CLI) | payer MEDICAID | END 2019-04-23 11:53 | disposition critical access hospital (66) | LOC: EMS 11:52 | PROVIDERS: ATTEND Surgery | DX: R25.2 Cramp and spasm (principal); R25.1 Tremor, unspecified; R53.1 Weakness | CPT/HCPCS: A0425; A0429; A0999 ==

== ENCOUNTER 2019-04-23 12:29 | Emergency (ER) | payer MEDICAID ==
--- NOTE | 2019-04-23 12:42 | ED Physician Documentation ---
History of Present Illness - Stated complaint Stated Complaint: TREMORS - Chief complaint Chief Complaint: Neuro - Additonal information Additional information: This is a 59-year-old male with a history of COPD, lung cancer with metastasis t o brain With resultant left lower extremity greater than left upper extremity weakness, seizures, who presents with an episode of tremoring in his extremities. Patient states around 20 minutes prior to arrival he had just finished a phone call and he sat down and he began having some uncontrollable shaking in his bilateral upper extremities and his legs. He was awake and alert throughout this episode, which lasted several minutes. He called EMS, when they arrived he was no longer having any tremors, he was awake alert, and his vital signs are unremarkable. They saw that he had an occasional PVC on the monitor, otherwise appeared to be in sinus rhythm. He was transported here for further evaluation. Patient states that he has been evaluated for similar symptoms in the past, and they have not given him a clear diagnosis, though they say it may have been some type of seizure. He is on Keppra and he has been taking his medications as prescribed. He denies any recent changes to his medications, head trauma, headache, chest pain, or shortness of breath over his baseline. Review of Systems Constitutional: denies: Fever Cardiac: denies: Chest pain / pressure Respiratory: denies: Dyspnea GI: denies: Abdominal Pain : denies: Dysuria Neurologic: reports: Other (tremors) PD PAST MEDICAL HISTORY - Past Medical History Cardiovascular: Congestive heart failure, Hypertension, Coronary artery disease, Peripheral Vascular Disease Respiratory: COPD, Shortness of breath, Other Neuro: Dementia, Headaches, Peripheral neuropathy, Seizure disorder, Other Endocrine/Autoimmune: None GI: GERD, Chronic constipation, Diverticulitis SOLE BLACKER: None : Benign prostate hypertrophy, Incontinence, Nocturia, Frequency HEENT: Chronic vision loss Psych: Anxiety Musculoskeletal: Chronic back pain, Other Derm: Other - Past Surgical History Past Surgical History: Yes Ortho: Amputation Cardiovascular: Cardiac catheterization Neuro: Craniotomy, Gamma knife - Present Medications Home Medications: Ambulatory Orders Medication Instructions Recorded Confirmed Lorazepam [Ativan] 1 mg PO Q8HR PRN 09/23/15 03/22/19 Tamsulosin [Flomax] 0.4 mg PO DAILY 06/29/16 03/22/19 Oxycodone HCl 10 - 20 mg PO Q4HR PRN MDD 8 tabs 07/26/17 03/22/19 Lidocaine Ointment 5% [Xylocaine 1 applic TOP PRN PRN 08/20/17 03/22/19 Ointment 5%] Gabapentin [Neurontin] 1,600 mg PO BID 09/27/17 03/22/19 Levetiracetam [Keppra] 500 mg PO BID #30 tablet 11/23/17 03/22/19 Ondansetron Odt [Zofran Odt] 4 mg TL Q6H PRN #15 tablet 03/19/18 03/22/19 Albuterol Sulf [Ventolin Hfa 2 puffs INH Q4HR PRN 05/09/18 03/22/19 Inhaler] Melatonin 3 - 6 mg PO QPM PRN 05/09/18 03/22/19 Nystatin 5 ml PO QID PRN 10/04/18 03/22/19 diphenhydrAMINE [Benadryl] 25 mg PO Q6HR PRN 10/04/18 03/22/19 Chlorhexidine Gluconate [Peridex] 15 ml PO DAILY PRN 12/18/18 03/22/19 Esomeprazole Magnesium [Nexium] 20 mg PO DAILY 12/18/18 03/22/19 Magnesium 250 mg PO BID 12/18/18 03/22/19 Oxycodone HCl [Oxycontin] 20 mg PO Q12H 12/18/18 03/22/19 Polyethylene Glycol 3350 [Miralax] 17 gm PO DAILY PRN 12/18/18 03/22/19 Budesonide/Formoterol Fumarate 2 puffs IH BID 12/20/18 03/22/19 [Symbicort 160-4.5 Mcg Inhaler] Montelukast [Singulair] 10 mg PO QPM #30 tablet 12/28/18 03/22/19 Ipratropium/Albuterol [Duoneb] 3 ml INH Q4HR PRN 02/15/19 03/22/19 Loperamide HCl [Loperamide] 2 mg PO QID PRN 02/23/19 03/22/19 Digoxin [Lanoxin] 125 mcg PO DAILY #10 tablet 02/25/19 03/22/19 Ferrous Sulfate 325 mg PO DAILY #15 tablet 02/25/19 03/22/19 Spironolactone [Aldactone] 25 mg PO BIDWM #20 tablet 03/12/19 03/22/19 Torsemide 20 mg PO DAILY 03/22/19 03/22/19 - Allergies Allergies/Adverse Reactions: Allergies Allergy/AdvReac Type Severity Reaction Status Date / Time BRONWYN Inhibitors Allergy Emesis Verified 04/25/19 06:22 amoxicillin [From Augmentin] Allergy Emesis Verified 04/25/19 06:22 clavulanic acid Allergy Emesis Verified 04/25/19 06:22 [From Augmentin] lisinopril Allergy "THROAT Verified 04/25/19 06:22 SWELLING" - Social History Does the pt smoke?: Yes Smoking Status: Current every day smoker Does the pt drink ETOH?: Yes Does the pt have substance abuse?: No - Immunizations Immunizations are current?: Yes - POLST Patient has POLST: No POLST Status: Full Code PD ED PE NORMAL - Vitals Vital signs reviewed: Yes - General General: Alert and oriented X 3, No acute distress - HEENT HEENT: Atraumatic - Neck Neck: Other (No meningeal sign.) - Cardiac Cardiac: RRR - Respiratory Respiratory: No respiratory distress, Other (Distant lung sounds diffusely) - Abdomen Abdomen: Soft, Non tender, Non distended - Derm Derm: Warm and dry - Extremities Extremities: Other (Clubbing of patient's nails. Multiple Surgically absent toes on the left. Several areas of callus in the bilateral feet. Compression stockings in place) - Neuro Neuro: Alert and oriented X 3, field laboratory operator 2-12 intact, No sensory deficit, Normal speech, Other (Slight weakness on the left arm 4+ out of 5 strength with elbow flexion, otherwise upper extremities have normal strength and are symmetric. Left lower leg is somewhat weak as well with 4- out of 5 strength hip flexion. His ankle plantarflexion and dorsiflexion is 5 out of 5 and symmetric bilaterally. Patient states that his left side is always a bit weak, and this is his baseline.) - Psych Psych: Normal mood, Normal affect Results - Vitals Vitals: Oxygen O2 Source [] Room air O2 Source Nasal cannula - EKG (time done) 13:00 Other comments: Other comments (Rate 89, rhythm sinus, there is T wave inversions and V1 and V2, as well as slight ST depression and V2 through V4, no change seen from previous EKG on 03/07/2019. There is a nonspecific intraventricular conduction delay.) - Labs Labs: Laboratory Tests 04/23/19 04/23/19 04/23/19 12:53 12:53 12:53 WBC 6.8 RBC 3.96 L Hgb 10.9 L Hct 32.1 L MCV 81.1 MCH 27.5 MCHC 34.0 RDW 19.7 H Plt Count 192 MPV 9.2 Neut # (Auto) 4.4 Lymph # (Auto) 1.2 L [place] # (Auto) 0.8 Eos # (Auto) 0.4 Baso # (Auto) 0.1 Absolute Nucleated RBC 0.00 Nucleated RBC % 0.0 PT 14.2 H INR 1.3 H Sodium 126 L Potassium 3.5 Chloride 86 L Carbon Dioxide 28 Anion Gap 12.0 BUN 7 Creatinine 0.7 Estimated GFR (MDRD) 116 Glucose 103 H Calcium 9.0 Magnesium 1.6 L Total Bilirubin 0.7 AST 22 ALT 11 Alkaline Phosphatase 59 Total Protein 7.5 Albumin 3.9 Globulin 3.6 Albumin/Globulin Ratio 1.1 Lipase 31 Urine Color Urine Clarity Urine pH Ur Specific [place] Urine Protein Urine Glucose (UA) Urine Ketones Urine Occult Blood Urine Nitrite Urine Bilirubin Urine Urobilinogen Ur Leukocyte Esterase Urine RBC Urine WBC Ur Squamous Epith Cells Urine Bacteria Ur Microscopic Review Urine Culture Comments Ethyl Alcohol 53.2 04/23/19 12:55 WBC RBC Hgb Hct MCV MCH MCHC RDW Plt Count MPV Neut # (Auto) Lymph # (Auto) [place] # (Auto) Eos # (Auto) Baso # (Auto) Absolute Nucleated RBC Nucleated RBC % PT INR Sodium Potassium Chloride Carbon Dioxide Anion Gap BUN Creatinine Estimated GFR (MDRD) Glucose Calcium Magnesium Total Bilirubin AST ALT Alkaline Phosphatase Total Protein Albumin Globulin Albumin/Globulin Ratio Lipase Urine Color LIGHT YELLOW Urine Clarity CLEAR Urine pH 6.0 Ur Specific [place] <=1.005 Urine Protein NEGATIVE Urine Glucose (UA) NEGATIVE Urine Ketones NEGATIVE Urine Occult Blood MODERATE H Urine Nitrite NEGATIVE Urine Bilirubin NEGATIVE Urine Urobilinogen 0.2 (NORMAL) Ur Leukocyte Esterase NEGATIVE Urine RBC 0-5 Urine WBC 0-3 Ur Squamous Epith Cells NONE SEEN Urine Bacteria None Seen Ur Microscopic Review INDICATED Urine Culture Comments NOT INDICATED Ethyl Alcohol - Rads (name of study) Head CT WO Radiology: Other (No acute change) PD MEDICAL DECISION MAKING - ED course Complexity details: considered differential (Electrolyte abnormality, seizure, head bleed, tumor/mass effect) ED course: Pt is chronically ill appearing but non-toxic on exam, neurologic exam is non- focal. Head CT negative, EKG without signs of dysrhythmia, acute ischemia/change from prior. He also has no chest pain or shortness of breath over his baseline. His episode of tremors could be a focal seizure, though it would be highly atypical to have tremors in all 4 extremities but still be conscious and aware through the entire episode. Sodium is 126, most recent value was 133 in our system. I spoke with Dr. Denton about admission, she spoke to his boiler attendant and they both say that admission is no appropriate and they recommend outpatient follow up instead. Patient continues to be well appearing on exam, without weakness or focal deficit and is asymptomatic at this time. I discussed our results, that he needs to stop drinking, and recommended close follow up as well as strict return precuations. Patient verbalized understanding and was discharged home. Departure - Departure Disposition: 01 Home, Self Care Clinical Impression: Tremor, Hyponatremia, Alcohol use Condition: Stable Follow-Up: Galen Bro MD [Primary Care Provider] - Within 3 Days (For repeat sodium level/labs and follow up on symptoms) Comments: You were seen today for some shaking in your arms and legs. Your CT scan does not show any new changes. Your sodium level was low today (126), is important that you stop drinking alcohol, and that you follow-up closely with your primary care provider to get a repeat lab draw to check on this within the next 3 days. If you are unable to do so you can return to the emergency department for recheck. If you develop any seizure, confusion, or any other concerning symptoms, please return to the emergency department immediately. Discharge Date/Time: 04/23/19 16:31
[2019-04-23] MEDS ORDERED: oxyCODONE 5 MG TABLET PO STA (12:45)
[2019-04-23 13:01] LABS: BASOPHILS # (AUTO) 0.1 10^3/uL (0.0-0.1); BASOPHILS % (AUTO) 0.7 %; EOSINOPHILS # (AUTO) 0.4 10^3/uL (0.0-0.7); HGB - HEMOGLOBIN 10.9 g/dL (14.0-18.0); LYMPHOCYTES # (AUTO) 1.2 10^3/uL (1.5-3.5); LYMPHOCYTES % (AUTO) 16.9 %; MEAN CORPUSCULAR HEMOGLOBIN 27.5 pg (27.0-31.0); MEAN CORPUSCULAR VOLUME 81.1 fL (80.0-94.0); MEAN PLATELET VOLUME 9.2 fL (7.4-11.4); MONOCYTES # (AUTO) 0.8 10^3/uL (0.0-1.0); MONOCYTES % (AUTO) 11.1 %; NEUTROPHILS # (AUTO) 4.4 10^3/uL (1.5-6.6); NEUTROPHILS % (AUTO) 64.7 %; PLT - PLATELET COUNT 192 10^3/uL (130-450); RED BLOOD COUNT 3.96 10^6/uL (4.70-6.10); RED CELL DISTRIBUTION WIDTH 19.7 % (12.0-15.0); WHITE BLOOD COUNT 6.8 x10^3/uL (4.8-10.8)
[2019-04-23 13:10] LABS: ALBUMIN 3.9 g/dL (3.2-5.5); ALBUMIN/GLOBULIN RATIO 1.1 (1.0-2.2); BILIRUBIN,TOTAL 0.7 mg/dL (0.2-1.0); CREATININE 0.7 mg/dL (0.6-1.2); MAGNESIUM 1.6 mg/dL (1.7-2.8); TOTAL PROTEIN 7.5 g/dL (6.7-8.2)
[2019-04-23 13:11] LABS: INR 1.3 (0.8-1.2); PT - PROTHROMBIN TIME 14.2 secs (9.9-12.6)
[2019-04-23 13:11] LABS: BILIRUBIN,URINE NEGATIVE (NEGATIVE); GLUCOSE, URINE (UA) NEGATIVE (NEGATIVE); KETONES,URINE (UA) NEGATIVE (NEGATIVE); LEUKOCYTE ESTERASE, URINE NEGATIVE (NEGATIVE); NITRITE,URINE NEGATIVE (NEGATIVE); OCCULT BLOOD,URINE MODERATE (NEGATIVE); PROTEIN,URINE NEGATIVE (NEGATIVE); UROBILINOGEN,URINE 0.2 (NORMAL) E.U./dL (NORMAL)
[2019-04-23 13:15] LABS: CLARITY,URINE CLEAR (CLEAR)
[2019-04-23 13:26] LABS: BACTERIA,URINE None Seen /HPF (None Seen); RBC,URINE 0-5 /HPF (0-5); SQUAMOUS EPITHELIAL CELL,UR NONE SEEN (<= Few)
--- NOTE | 2019-04-23 13:55 | CT Report ---
Reason: Hx brain mets, episode of tremors/extrm convulsion Procedure Date: 04/23/2019 Accession Number: [id number] / [id number] Procedure: CT - HEAD WO CPT Code: FULL RESULT: EXAM: CT HEAD EXAM DATE: 04/23/2019 01:19 PM. CLINICAL HISTORY: Hx brain mets, episode of tremors convulsion. COMPARISON: HEAD W/O 12/19/2018 5:59 PM BRAIN W/O 12/27/2018 11:50 AM. TECHNIQUE: Multiaxial CT images were obtained from the foramen magnum to the vertex. Reformats: Sagittal and coronal. IV contrast: None. In accordance with CT protocol optimization, one or more of the following dose reduction techniques were utilized for this exam: automated exposure control, adjustment of mA and/or KV based on patient size, or use of iterative reconstructive technique. FINDINGS: Parenchyma: No intraparenchymal hemorrhage. No midline shift, or CT findings of acute infarction. Right frontal lobe encephalomalacia with central linear calcification deep to the craniotomy is unchanged. Hypoattenuation in the periventricular and deep white matter Nielson-white differentiation is distinct. Extraaxial Spaces: Mild to moderate volume loss. No subdural or epidural collections identified. Ventricles: Mild to moderately enlarged, as before. Sinuses and Orbits: Imaged paranasal sinuses, orbits, and mastoids show no significant abnormality. Bones: Unchanged right frontoparietal craniotomy. Other: None. IMPRESSION: No acute intracranial abnormality or significant change. RADIA
[2019-04-23 15:39] VITALS: BP 106/74
== END 2019-04-23 16:31 | disposition home or self-care (01) ==
LOC: EDUNIT# → ED 12:29
DX: R25.1 Tremor, unspecified (principal); E87.1 Hypo-osmolality and hyponatremia; R94.31 Abnormal electrocardiogram [ECG] [EKG]; C34.90 Malignant neoplasm of unspecified part of unspecified bronchus or lung; C79.31 Secondary malignant neoplasm of brain; I10 Essential (primary) hypertension; I25.10 Atherosclerotic heart disease of native coronary artery without angina pectoris; I73.9 Peripheral vascular disease, unspecified; F03.90 Unspecified dementia, unspecified severity, without behavioral disturbance, psychotic disturbance, mood disturbance, and anxiety; F17.200 Nicotine dependence, unspecified, uncomplicated; Z72.89 Other problems related to lifestyle
CPT/HCPCS: 36415; 70450; 80053; 80320; 81001; 83690; 83735; 85025; 85610; 93005; 99284; A9270; 81003; 87086

== ENCOUNTER 2019-04-25 05:31 | Outpatient (CLI) | payer MEDICAID | END 2019-04-25 05:32 | disposition critical access hospital (66) | LOC: EMS 05:31 | PROVIDERS: ATTEND Surgery | DX: T23.129A Burn of first degree of unspecified single finger (nail) except thumb, initial encounter (principal); W40.1XXA Explosion of explosive gases, initial encounter; Y92.039 Unspecified place in apartment as the place of occurrence of the external cause ==

== ENCOUNTER 2019-04-25 06:07 | Emergency (ER) | payer MEDICAID ==
[2019-04-25 07:04] LABS: BASOPHILS # (AUTO) 0.1 10^3/uL (0.0-0.1)
[2019-04-25 07:08] LABS: BASOPHILS % (AUTO) 0.7 %; MEAN PLATELET VOLUME 9.7 fL (7.4-11.4)
[2019-04-25 07:11] LABS: EOSINOPHILS # (AUTO) 0.5 10^3/uL (0.0-0.7); EOSINOPHILS % (AUTO) 7.8 %; HGB - HEMOGLOBIN 10.8 g/dL (14.0-18.0); LYMPHOCYTES # (AUTO) 1.2 10^3/uL (1.5-3.5); LYMPHOCYTES % (AUTO) 18.3 %; MEAN CORPUSCULAR HEMOGLOBIN 27.4 pg (27.0-31.0); MEAN CORPUSCULAR HGB CONC 33.1 g/dL (32.0-36.0); MEAN CORPUSCULAR VOLUME 82.7 fL (80.0-94.0); MONOCYTES # (AUTO) 0.8 10^3/uL (0.0-1.0); MONOCYTES % (AUTO) 12.2 %; NEUTROPHILS # (AUTO) 4.1 10^3/uL (1.5-6.6); NEUTROPHILS % (AUTO) 60.7 %; PLT - PLATELET COUNT 174 10^3/uL (130-450); RED BLOOD COUNT 3.94 10^6/uL (4.70-6.10); RED CELL DISTRIBUTION WIDTH 20.2 % (12.0-15.0); WHITE BLOOD COUNT 6.8 x10^3/uL (4.8-10.8)
[2019-04-25 07:17] LABS: ALBUMIN 3.7 g/dL (3.2-5.5); ALKALINE PHOSPHATASE 61 IU/L (42-121); ALT ALANINE AMINOTRANSFERASE < 10 IU/L (10-60); AST ASPARTATE AMINOTRANSFERASE 22 IU/L (10-42); BILIRUBIN,TOTAL 0.7 mg/dL (0.2-1.0); BUN - BLOOD UREA NITROGEN 11 mg/dL (6-20); CALCIUM 8.9 mg/dL (8.5-10.3); CARBON DIOXIDE - CO2 32 mmol/L (21-32); CHLORIDE 86 mmol/L (101-111); CREATININE 0.8 mg/dL (0.6-1.2); GFR - MDRD 100 (>89); GLUCOSE 131 mg/dL (70-100); LIPASE 28 U/L (22-51); SODIUM 127 mmol/L (135-145); TOTAL PROTEIN 7.5 g/dL (6.7-8.2)
[2019-04-25 07:33] LABS: PLATELET MORPHOLOGY NORMAL APPEARANCE (NORMAL)
[2019-04-25 07:34] LABS: PLATELET ESTIMATE, MANUAL NORMAL (130-450,000) (NORMAL); RBC MORPHOLOGY (MULTIPLE) 1+ MACROCYTOSIS (NORMAL)
[2019-04-25] MEDS ORDERED: oxyCODONE 5 MG TABLET PO STA ×2 (07:56→14:49)
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
[2019-04-25] MEDS ORDERED: ALBUTEROL NEB 2.5 MG/3 ML INH STA (12:21)
[2019-04-25] MEDS ORDERED: BENZOCAINE/MENTHOL LOZENGE MM STA (12:22)
[2019-04-25 14:35] VITALS: BP 123/87
[2019-04-25] MEDS ORDERED: GABAPENTIN 100 MG CAPSULE PO STA (14:49)
[2019-04-25] MEDS ORDERED: levETIRAcetam 250 MG TABLET PO STA (14:49)
[2019-04-25] MEDS ORDERED: SPIRONOLACTONE 25 MG TABLET PO STA (14:49)
[2019-04-25] MEDS ORDERED: DIGOXIN 125 MCG TABLET PO STA (14:49)
[2019-04-25] MEDS ORDERED: GABAPENTIN 400 MG CAPSULE PO STA (14:53)
== END 2019-04-25 16:50 | disposition home or self-care (01) ==
LOC: EDUNIT# → ED 06:07
DX: Z77.128 Contact with and (suspected) exposure to other hazards in the physical environment (principal); I10 Essential (primary) hypertension; F03.90 Unspecified dementia, unspecified severity, without behavioral disturbance, psychotic disturbance, mood disturbance, and anxiety; F17.200 Nicotine dependence, unspecified, uncomplicated; Z99.81 Dependence on supplemental oxygen
CPT/HCPCS: 36415; 71046; 80053; 82375; 83690; 85025; 94640; 99283; 99284; A9270

== ENCOUNTER 2019-05-12 16:00 | Outpatient (CLI) | payer MEDICAID ==
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
== END 2019-05-12 16:01 | disposition home or self-care (01) ==
LOC: PC 16:00
PROVIDERS: ATTEND Nurse Practitioner Adult Health
DX: Z51.5 Encounter for palliative care (principal); I50.43 Acute on chronic combined systolic (congestive) and diastolic (congestive) heart failure; I42.6 Alcoholic cardiomyopathy; F41.9 Anxiety disorder, unspecified; C34.90 Malignant neoplasm of unspecified part of unspecified bronchus or lung; C79.31 Secondary malignant neoplasm of brain; E87.1 Hypo-osmolality and hyponatremia; J44.9 Chronic obstructive pulmonary disease, unspecified; G89.29 Other chronic pain; G62.9 Polyneuropathy, unspecified; R07.81 Pleurodynia; R07.9 Chest pain, unspecified; L97.929 Non-pressure chronic ulcer of unspecified part of left lower leg with unspecified severity; L97.919 Non-pressure chronic ulcer of unspecified part of right lower leg with unspecified severity; Z79.899 Other long term (current) drug therapy; Z79.891 Long term (current) use of opiate analgesic; Z91.14 Patient's other noncompliance with medication regimen

== ENCOUNTER 2019-05-13 14:38 | Outpatient (CLI) | payer MEDICAID ==
[2019-05-13 16:02] LABS: HGB - HEMOGLOBIN 9.8 g/dL (14.0-18.0); MEAN CORPUSCULAR HEMOGLOBIN 28.5 pg (27.0-31.0); MEAN CORPUSCULAR HGB CONC 33.1 g/dL (32.0-36.0); MEAN PLATELET VOLUME 9.5 fL (7.4-11.4); RED BLOOD COUNT 3.44 10^6/uL (4.70-6.10); RED CELL DISTRIBUTION WIDTH 18.4 % (12.0-15.0); WHITE BLOOD COUNT 6.9 x10^3/uL (4.8-10.8)
[2019-05-13 16:12] LABS: CALCIUM 8.8 mg/dL (8.5-10.3); CREATININE 1.1 mg/dL (0.6-1.2)
== END 2019-05-13 23:59 | disposition home or self-care (01) ==
LOC: LAB.R 14:38
PROVIDERS: ATTEND Family Medicine
DX: R68.89 Other general symptoms and signs (principal)
CPT/HCPCS: 80048; 85027

== ENCOUNTER 2019-05-21 13:23 | Outpatient (CLI) | payer MEDICAID ==
--- NOTE | 2019-05-22 10:16 | XRAY Report ---
Reason: ABSCESS, FOOT, LEFT Procedure Date: 05/21/2019 Accession Number: [id number] / [id number] Procedure: XRN - Foot 2 View LT CPT Code: Final Report FULL RESULT: EXAM: LEFT FOOT RADIOGRAPHY EXAM DATE: 05/21/2019 01:41 PM. CLINICAL HISTORY: ABSCESS, FOOT, LEFT. COMPARISON: FOOT 3 VIEW LT 06/20/2018 2:42 PM. TECHNIQUE: 2 views. FINDINGS: Bones: Status post amputation of the second through fourth digits as before. Plantar subluxation of the distal first digit as before. No fractures. There is cortical irregularity and underlying mild sclerosis involving the head of the second metatarsal, could reflect chronic and/or acute on chronic changes of osteomyelitis. Stable mixed lucent-sclerotic region at the head of the fifth metatarsal. Joints: As above. Soft Tissues: Tissue swelling and probable ulceration at the great toe, as before IMPRESSION: 1. Osseous changes involving the head of the second metatarsal and tuft of the first distal digit, could be secondary to osteomyelitis. MR or alternatively re-phase nuclear medicine bone scan could be performed for further evaluation. RADIA
== END 2019-05-21 13:24 | disposition home or self-care (01) ==
LOC: DI.N 13:23
PROVIDERS: ATTEND Family Medicine
DX: L02.612 Cutaneous abscess of left foot (principal)

== ENCOUNTER 2019-06-02 13:43 | Outpatient (CLI) | payer MEDICAID ==
[2019-06-02] MEDS ORDERED: IOVERSOL 320 100 ML VIAL IVP ONE ×2 (13:47→15:46)
[2019-06-02] MEDS ORDERED: IOVERSOL 320 50 ML VIAL ONE (13:48)
[2019-06-02] MEDS ORDERED: IOVERSOL 320 50 ML VIAL PO ONE (15:46)
--- NOTE | 2019-06-03 14:06 | CT Report ---
Reason: METS LUNG CA Procedure Date: 06/02/2019 Accession Number: [id number] / [id number] Procedure: CT - Abdomen/Pelvis W CPT Code: Final Report FULL RESULT: EXAM: CT CHEST, ABDOMEN AND PELVIS EXAM DATE: 06/02/2019 03:24 PM. CLINICAL HISTORY: Metastatic lung cancer. COMPARISONS: ABDOMEN/PELVIS W/ 11/05/2018 2:05 PM CHEST ANGIO 02/22/2019 5:33 PM CHEST W/O 12/19/2018 9:42 PM CHEST W/ 06/26/2017 12:46 PM. TECHNIQUE: Routine helical CT imaging was performed through the chest, abdomen, and pelvis. IV contrast: 100 mL OPTI 320. Enteric contrast: Yes. Reconstructions: Coronal and sagittal. In accordance with CT protocol optimization, one or more of the following dose reduction techniques were utilized for this exam: automated exposure control, adjustment of mA and/or KV based on patient size, or use of iterative reconstructive technique. FINDINGS: Lungs/Pleura: Moderate to severe upper lobe predominant emphysematous disease is redemonstrated. Compared to January 2019, there has been interval decrease in size of the previously large pleural effusion, now small. Masslike consolidation in the right upper lobe is again seen, image 169 series 3, where it measures 3.1 x 7.1 cm. The same is demonstrated to be adjacent to the pleura coronally where it measures 1.6 cm in CC dimension and 4.4 cm transversely on image 123 of series 5. This extent has decreased in size both when compared to 02/22/2019 and when compared to 12/19/2018, likely resolution of previous abnormality superimposed acute airspace disease and interval evolution of post treatment findings. No new separate masses are detected. There is no interval increase in solid soft tissue component. No pneumothorax. Mediastinum: Mediastinal and hilar lymphadenopathy appears similar to the 02/22/2019 study and has not increased in size in the interval. There is no pericardial effusion. A left subclavian central venous port is once again demonstrated. Liver: Normal. Gallbladder/Bile Ducts: Unremarkable. Spleen: Normal. Pancreas: Normal. Adrenal Glands: Normal. Kidneys: Normal. No masses or hydronephrosis. Peritoneal Cavity/Bowel: Patient is status post partial ascending colectomy. Bowel containing left inguinal hernia is again demonstrated, no associated fat stranding. There is no bowel obstruction. There is no free fluid or free air. There is no intraperitoneal or retroperitoneal lymphadenopathy by size criteria. Pelvic Organs: Asymmetrically prominent lymph nodes are seen in the left inguinal region the largest of which is seen on image 94 series 4 and measures 1.9 x 1.5 cm. Vasculature: No aneurysms or other significant abnormality. Bones: Interval increase in Schmorl's nodes in the lumbar spine, newly seen L1, L2 and L3, redemonstrated at L4. No aggressive osseous lesions are detected. Other: None. IMPRESSION: Interval resolution of previously seen acute airspace disease with interval decrease in size of the previously demonstrated pleural effusion. Interval change in size and appearance of the mass itself is difficult to make given more recent airspace disease but the overall impression is that of evolution of post treatment findings and resolution of previous superimposed airspace disease. No definite disease in abdomen or pelvis. RADIA
== END 2019-06-02 13:44 | disposition home or self-care (01) ==
LOC: DI 13:43
PROVIDERS: ATTEND Internal Medicine
DX: C34.11 Malignant neoplasm of upper lobe, right bronchus or lung (principal); C79.31 Secondary malignant neoplasm of brain; J43.9 Emphysema, unspecified; J90 Pleural effusion, not elsewhere classified
CPT/HCPCS: 71260; 74177; Q9967

== ENCOUNTER 2019-06-07 07:00 | Outpatient (CLI) | payer MEDICAID | END 2019-06-07 23:59 | disposition home or self-care (01) | LOC: LAB.R 07:00 | PROVIDERS: ATTEND Family Medicine | DX: S81.802A Unspecified open wound, left lower leg, initial encounter (principal) | CPT/HCPCS: 87070; 87181; 87205 ==

== ENCOUNTER 2019-06-08 17:01 | Outpatient (CLI) | payer MEDICAID | END 2019-06-08 17:02 | disposition critical access hospital (66) | LOC: EMS 17:01 | PROVIDERS: ATTEND Surgery | DX: L08.9 Local infection of the skin and subcutaneous tissue, unspecified (principal) | CPT/HCPCS: A0425; A0429 ==

== ENCOUNTER 2019-06-08 17:18 | Emergency (ER) | payer MEDICAID ==
--- NOTE | 2019-06-08 17:28 | ED Physician Documentation ---
PD HPI WOUND RECHECK - Stated complaint Stated Complaint: TOE INFECTION - Chief complaint Chief Complaint: Wound - Histroy obtained from History obtained from: Patient (59-year-old gentleman with a chronic infection of the left great toe. He says he was in the remote past on antibiotics for which was helpful. More recently it is been getting worse. He is very vague as far as timeframes ago. Looks like a culture was done yesterday and is growing preliminary staph. Previous staph has not been MRSA. There is not much pain to it. He is pretty cantankerous.) Review of Systems Constitutional: denies: Fever, Chills Cardiac: denies: Chest pain / pressure, Palpitations Respiratory: denies: Dyspnea, Cough PD PAST MEDICAL HISTORY - Past Medical History Cardiovascular: Congestive heart failure, Hypertension, Coronary artery disease, Peripheral Vascular Disease Respiratory: COPD, Shortness of breath, Other Neuro: Dementia, Headaches, Peripheral neuropathy, Seizure disorder, Other Endocrine/Autoimmune: None GI: GERD, Chronic constipation, Diverticulitis QUOTATION CHECKER: None : Benign prostate hypertrophy, Incontinence, Nocturia, Frequency HEENT: Chronic vision loss Psych: Anxiety Musculoskeletal: Chronic back pain, Other Derm: Other - Past Surgical History Past Surgical History: Yes Ortho: Amputation Cardiovascular: Cardiac catheterization Neuro: Craniotomy, Gamma knife - Present Medications Home Medications: Ambulatory Orders Medication Instructions Recorded Confirmed Lorazepam [Ativan] 1 mg PO Q8HR PRN 09/23/15 05/13/19 Tamsulosin [Flomax] 0.4 mg PO DAILY 06/29/16 05/13/19 Oxycodone HCl 10 - 20 mg PO Q4HR PRN MDD 8 tabs 07/26/17 05/13/19 Lidocaine Ointment 5% [Xylocaine 1 applic TOP PRN PRN 08/20/17 05/13/19 Ointment 5%] Gabapentin [Neurontin] 1,600 mg PO BID 09/27/17 05/13/19 Levetiracetam [Keppra] 500 mg PO BID #30 tablet 11/23/17 05/13/19 Ondansetron Odt [Zofran Odt] 4 mg TL Q6H PRN #15 tablet 03/19/18 05/13/19 Albuterol Sulf [Ventolin Hfa 2 puffs INH Q4HR PRN 05/09/18 05/13/19 Inhaler] Melatonin 3 - 6 mg PO QPM PRN 05/09/18 05/13/19 diphenhydrAMINE [Benadryl] 25 mg PO Q6HR PRN 10/04/18 05/13/19 Chlorhexidine Gluconate [Peridex] 15 ml PO DAILY PRN 12/18/18 05/13/19 Esomeprazole Magnesium [Nexium] 20 mg PO DAILY 12/18/18 05/13/19 Magnesium 250 mg PO BID 12/18/18 05/13/19 Oxycodone HCl [Oxycontin] 20 mg PO Q12H 12/18/18 05/13/19 Polyethylene Glycol 3350 [Miralax] 17 gm PO DAILY PRN 12/18/18 05/13/19 Budesonide/Formoterol Fumarate 2 puffs IH BID 12/20/18 05/13/19 [Symbicort 160-4.5 Mcg Inhaler] Montelukast [Singulair] 10 mg PO QPM #30 tablet 12/28/18 05/13/19 Ipratropium/Albuterol [Duoneb] 3 ml INH Q4HR PRN MDD hold no 02/15/19 05/13/19 nebulizzer Loperamide HCl [Loperamide] 2 mg PO QID PRN 02/23/19 05/13/19 Ferrous Sulfate 325 mg PO DAILY #15 tablet 02/25/19 05/13/19 Spironolactone [Aldactone] 25 mg PO BIDWM #20 tablet 03/12/19 05/13/19 Torsemide 20 mg PO BID 03/22/19 05/13/19 Docusate Sodium 200 mg PO DAILY PRN 05/13/19 05/13/19 Magnesium Hydroxide [Milk of 30 ml PO DAILY PRN 05/13/19 05/13/19 Magnesia] Doxycycline Hyclate 100 mg PO BID #20 capsule 06/08/19 - Allergies Allergies/Adverse Reactions: Allergies Allergy/AdvReac Type Severity Reaction Status Date / Time BRONWYN Inhibitors Allergy Emesis Verified 06/08/19 17:24 clavulanic acid Allergy Emesis Verified 06/08/19 17:24 [From Augmentin] lisinopril Allergy "THROAT Verified 06/08/19 17:24 SWELLING" - Social History Does the pt smoke?: Yes Smoking Status: Current every day smoker Does the pt drink ETOH?: Yes ETOH Use: Beer Does the pt have substance abuse?: No - Immunizations Immunizations are current?: Yes - POLST Patient has POLST: No POLST Status: Full Code PD ED PE NORMAL - Vitals Vital signs reviewed: Yes - General General: Alert and oriented X 3, No acute distress - Back Back: No CVA TTP, No spinal TTP - Derm Derm: Normal color, Warm and dry - Extremities Extremities: Other (There is a ulcer at the tip of the left great toe with mild cellulitis of the digit itself. No foot cellulitis.) - Neuro Neuro: Alert and oriented X 3, Normal speech Results - Vitals Vitals: Vital Signs - 24 hr 06/08/19 06/08/19 17:20 18:31 Temperature 36.9 C 37.2 C Heart Rate 98 94 Respiratory 20 15 Rate Blood Pressure 160/82 H 122/74 O2 Saturation 93 93 Oxygen O2 Source [Without Activity] Room air O2 Source Room air - Labs Labs: Microbiology 06/08/19 17:25 Wound Culture - Preliminary Toe - Left Big Laboratory Tests 06/08/19 06/08/19 06/08/19 17:35 17:35 17:35 WBC 6.8 RBC 3.53 L Hgb 10.6 L Hct 31.8 L MCV 90.1 MCH 30.0 MCHC 33.3 RDW 17.2 H Plt Count 205 MPV 8.7 Neut # (Auto) 5.0 Lymph # (Auto) 0.9 L [place] # (Auto) 0.7 Eos # (Auto) 0.1 Baso # (Auto) 0.1 Absolute Nucleated RBC 0.00 Nucleated RBC % 0.0 ESR 69 H Sodium 129 L Potassium 3.6 Chloride 86 L Carbon Dioxide 30 Anion Gap 13.0 BUN 12 Creatinine 1.1 Estimated GFR (MDRD) 69 L Glucose 94 Calcium 8.7 C-Reactive Protein 11.3 H - Rads (name of study) L toe Radiology: EMP read contemporaneously (Some erosion of the distal tuft) PD MEDICAL DECISION MAKING - ED course ED course: This is a 59-year-old gentleman with a chronic wound to the left great toe. He probably does have chronic osteomyelitis. There was no acute worsening tonight. We are starting him on some antibiotics pending cultures. An email was placed to both his physician and his palliative care nurse practitioner to consider long-term IV antibiotic therapy. Departure - Departure Disposition: 01 Home, Self Care Clinical Impression: Cellulitis of toe of left foot Condition: Good Record reviewed to determine appropriate education?: Yes Instructions: ED Infec Skin Cellulitis Prescriptions: Doxycycline Hyclate 100 mg PO BID #20 capsule Comments: We are starting some antibiotics for the infection in your toe. The infection seems chronic, I do not see any indication for hospitalization. I will email your primary care physician to consider long-term antibiotic therapy as an outpatient. Return for new or worsening symptoms. Try to quit smoking to help healing and blood flow. He should sit upright and drink plenty of water with the doxycycline, he should not lay down for half an hour after taking the doxycycline. He should not take the doxycycline within 1 hour of his electrolyte supplements. Discharge Date/Time: 06/08/19 19:18
[2019-06-08 17:45] LABS: BASOPHILS # (AUTO) 0.1 10^3/uL (0.0-0.1); BASOPHILS % (AUTO) 0.9 %; EOSINOPHILS # (AUTO) 0.1 10^3/uL (0.0-0.7); EOSINOPHILS % (AUTO) 1.6 %; HGB - HEMOGLOBIN 10.6 g/dL (14.0-18.0); LYMPHOCYTES # (AUTO) 0.9 10^3/uL (1.5-3.5); LYMPHOCYTES % (AUTO) 12.6 %; MEAN CORPUSCULAR HGB CONC 33.3 g/dL (32.0-36.0); MEAN CORPUSCULAR VOLUME 90.1 fL (80.0-94.0); MEAN PLATELET VOLUME 8.7 fL (7.4-11.4); MONOCYTES # (AUTO) 0.7 10^3/uL (0.0-1.0); MONOCYTES % (AUTO) 10.2 %; NEUTROPHILS % (AUTO) 74.3 %; PLT - PLATELET COUNT 205 10^3/uL (130-450); RED BLOOD COUNT 3.53 10^6/uL (4.70-6.10); RED CELL DISTRIBUTION WIDTH 17.2 % (12.0-15.0); WHITE BLOOD COUNT 6.8 x10^3/uL (4.8-10.8)
[2019-06-08 18:00] LABS: CALCIUM 8.7 mg/dL (8.5-10.3); CREATININE 1.1 mg/dL (0.6-1.2); CRP - C-REACTIVE PROTEIN 11.3 mg/dL (0-1.0)
[2019-06-08] MEDS ORDERED: DOXYCYCLINE 100 MG TABLET PO STA (18:16)
--- NOTE | 2019-06-08 18:18 | XRAY Report ---
Reason: toe infection Procedure Date: 06/08/2019 Accession Number: [id number] / [id number] Procedure: XR - Foot 3 View LT CPT Code: Final Report FULL RESULT: EXAM: LEFT FOOT RADIOGRAPHY EXAM DATE: 06/08/2019 05:41 PM. CLINICAL HISTORY: Great toe infection. COMPARISON: FOOT 2 VIEW LT 05/21/2019 1:46 PM. TECHNIQUE: 3 views. FINDINGS: Bones: Amputation of the second, third, and fourth toes as before, with reestablishment of cortical white line, head of second metatarsal. Erosion of the tuft of the first distal phalanx. Otherwise no bony erosions or disruption of the cortical white line. Joints: Chronic subluxation at the first IP joint. No subluxations. Soft Tissues: Soft tissue swelling at the great toe. IMPRESSION: Erosion of the tuft of the first distal phalanx concerning for osteomyelitis. RADIA
[2019-06-08] MEDS ORDERED: FUROSEMIDE 20 MG TABLET PO STA (18:22)
[2019-06-08] MEDS ORDERED: oxyCODONE 5 MG TABLET PO STA (18:23)
[2019-06-08 18:33] VITALS: BP 122/74
== END 2019-06-08 19:18 | disposition home or self-care (01) ==
LOC: EDUNIT# → ED 17:18
DX: L03.032 Cellulitis of left toe (principal); L97.529 Non-pressure chronic ulcer of other part of left foot with unspecified severity; I10 Essential (primary) hypertension; I73.9 Peripheral vascular disease, unspecified; F17.200 Nicotine dependence, unspecified, uncomplicated; F03.90 Unspecified dementia, unspecified severity, without behavioral disturbance, psychotic disturbance, mood disturbance, and anxiety
CPT/HCPCS: 36415; 73630; 80048; 85025; 85651; 86140; 87070; 87077; 87181; 87205; 99283; 99284; A9270

== ENCOUNTER 2019-07-05 13:09 | Outpatient (CLI) | payer MEDICAID | END 2019-07-05 13:10 | disposition home or self-care (01) | LOC: DI 13:09 | PROVIDERS: ATTEND Internal Medicine | DX: Z53.9 Procedure and treatment not carried out, unspecified reason (principal) ==

== ENCOUNTER 2019-07-23 21:05 | Outpatient (CLI) | payer MEDICAID | END 2019-07-23 23:59 | disposition critical access hospital (66) | LOC: EMS 21:05 | PROVIDERS: ATTEND Surgery | DX: R51 Headache (principal); M54.2 Cervicalgia; R20.2 Paresthesia of skin; W06.XXXA Fall from bed, initial encounter; Y92.092 Bedroom in other non-institutional residence as the place of occurrence of the external cause | CPT/HCPCS: A0425; A0429; A0999 ==

== ENCOUNTER 2019-07-23 21:19 | Emergency (ER) | payer MEDICAID ==
--- NOTE | 2019-07-23 21:37 | ED Physician Documentation ---
History of Present Illness - Stated complaint Stated Complaint: FELL, HEAD PAIN - Chief complaint Chief Complaint: Trauma Hd/Nk - History obtained from History obtained from: Patient (Patient with history of chronic lower back pain and peripheral neuropathy presented to the emergency room with ground-level fall this morning. He hit his top of the scalp to a chair. There was no loss consciousness. He is in the emergency room by fulling machine operator. According to the patient the headache and the neck pain has gradually worsened. Spasmatic in nature. No loss conscious. No nausea no vomiting. GCS 15. Alert and oriented x3. Patient does complain of occasional shortness of breath because of COPD. There is no worsening shortness of breath. He is not oxygen dependent. No complaint of chest discomfort.) - History of Present Illness Timing: Today (This morning when he woke up. He fell asleep at the edge of the bed and subsequently fell.) Pain level max: 6 Pain level now: 6 Review of Systems Ten Systems: 10 systems reviewed and negative Constitutional: reports: Reviewed and negative Eyes: reports: Reviewed and negative Ears: reports: Reviewed and negative Nose: reports: Reviewed and negative Throat: reports: Reviewed and negative Cardiac: reports: Reviewed and negative Respiratory: reports: Reviewed and negative GI: reports: Reviewed and negative : reports: Reviewed and negative Skin: reports: Reviewed and negative Musculoskeletal: reports: Neck pain, Back pain, Reviewed and negative Neurologic: reports: Reviewed and negative Psychiatric: reports: Reviewed and negative Endocrine: reports: Reviewed and negative Immunocompromised: reports: Reviewed and negative PD PAST MEDICAL HISTORY - Past Medical History Past Medical History: Yes Cardiovascular: Congestive heart failure, Hypertension, Coronary artery disease, Peripheral Vascular Disease Respiratory: COPD, Shortness of breath, Other Neuro: Dementia, Headaches, Peripheral neuropathy, Seizure disorder, Other Endocrine/Autoimmune: None GI: GERD, Chronic constipation, Diverticulitis GLOBAL CEO: None : Benign prostate hypertrophy, Incontinence, Nocturia, Frequency HEENT: Chronic vision loss, Other (No cervical spinal process tenderness, c- collar applied by fulling machine operator,) Psych: Anxiety Musculoskeletal: Chronic back pain, Other Derm: Other - Past Surgical History Past Surgical History: Yes Ortho: Amputation Cardiovascular: Cardiac catheterization Neuro: Craniotomy, Gamma knife - Present Medications Home Medications: Ambulatory Orders Medication Instructions Recorded Confirmed Lorazepam [Ativan] 1 mg PO Q8HR PRN 09/23/15 07/16/19 Tamsulosin [Flomax] 0.4 mg PO DAILY 06/29/16 07/16/19 Oxycodone HCl 10 - 20 mg PO Q4HR PRN MDD 8 tabs 07/26/17 07/16/19 Lidocaine Ointment 5% [Xylocaine 1 applic TOP PRN PRN 08/20/17 07/16/19 Ointment 5%] Gabapentin [Neurontin] 1,600 mg PO BID 09/27/17 07/16/19 Levetiracetam [Keppra] 500 mg PO BID #30 tablet 11/23/17 07/16/19 Ondansetron Odt [Zofran Odt] 4 mg TL Q6H PRN #15 tablet 03/19/18 07/16/19 Albuterol Sulf [Ventolin Hfa 2 puffs INH Q4HR PRN 05/09/18 07/16/19 Inhaler] Melatonin 3 - 6 mg PO QPM PRN 05/09/18 07/16/19 diphenhydrAMINE [Benadryl] 25 mg PO Q6HR PRN 10/04/18 07/16/19 Chlorhexidine Gluconate [Peridex] 15 ml PO DAILY PRN 12/18/18 07/16/19 Esomeprazole Magnesium [Nexium] 20 mg PO DAILY 12/18/18 07/16/19 Magnesium 250 mg PO BID 12/18/18 07/16/19 Oxycodone HCl [Oxycontin] 20 mg PO Q12H 12/18/18 07/16/19 polyethylene glycoL 3350 [Miralax] 17 gm PO DAILY PRN 12/18/18 07/16/19 Budesonide/Formoterol Fumarate 2 puffs IH BID 12/20/18 07/16/19 [Symbicort 160-4.5 Mcg Inhaler] Montelukast [Singulair] 10 mg PO QPM #30 tablet 12/28/18 07/16/19 Ipratropium/Albuterol [Duoneb] 3 ml INH Q4HR PRN MDD hold no 02/15/19 07/16/19 nebulizzer Loperamide HCl [Loperamide] 2 mg PO QID PRN 02/23/19 07/16/19 Ferrous Sulfate 325 mg PO DAILY #15 tablet 02/25/19 07/16/19 Spironolactone [Aldactone] 25 mg PO BIDWM #20 tablet 03/12/19 07/16/19 Torsemide 20 mg PO BID 03/22/19 07/16/19 Docusate Sodium 200 mg PO DAILY PRN 05/13/19 07/16/19 Magnesium Hydroxide [Milk of 30 ml PO DAILY PRN 05/13/19 07/16/19 Magnesia] Doxycycline Hyclate 100 mg PO BID #20 capsule 06/08/19 07/16/19 LORazepam [Lorazepam] 0.5 mg PO PRN 07/17/19 Oxycodone HCl 10 mg PO PRN 07/17/19 - Allergies Allergies/Adverse Reactions: Allergies Allergy/AdvReac Type Severity Reaction Status Date / Time BRONWYN Inhibitors Allergy Emesis Verified 07/23/19 21:25 clavulanic acid Allergy Emesis Verified 07/23/19 21:25 [From Augmentin] lisinopril Allergy "THROAT Verified 07/23/19 21:25 SWELLING" - Social History Does the pt smoke?: Yes Smoking Status: Current every day smoker Does the pt drink ETOH?: Yes Does the pt have substance abuse?: No - Immunizations Immunizations are current?: Yes - POLST Patient has POLST: No POLST Status: Full Code Results - Vitals Vitals: Vital Signs - 24 hr 07/23/19 07/23/19 07/23/19 21:25 21:29 23:29 Temperature 36.7 C 36.7 C Heart Rate 83 83 93 Respiratory 14 14 14 Rate Blood Pressure 117/77 117/77 126/74 O2 Saturation 94 94 94 07/24/19 00:35 Temperature 36.5 C Heart Rate 72 Respiratory 16 Rate Blood Pressure 128/72 O2 Saturation 100 Oxygen O2 Source [Without Activity] Room air O2 Source Room air - Labs Labs: Laboratory Tests 07/23/19 07/23/19 07/23/19 22:06 22:06 22:31 WBC RBC Hgb Hct MCV MCH MCHC RDW Plt Count MPV Neut # (Auto) Lymph # (Auto) [place] # (Auto) Eos # (Auto) Baso # (Auto) Absolute Nucleated RBC Nucleated RBC % PT 14.1 H INR 1.3 H Sodium 123 L Potassium 4.4 Chloride 87 L Carbon Dioxide 25 Anion Gap 11.0 BUN 10 Creatinine 0.9 Estimated GFR (MDRD) 87 L Glucose 91 Calcium 8.4 L Total Bilirubin 0.5 AST 20 ALT < 10 L Alkaline Phosphatase 87 Total Protein 7.4 Albumin 3.8 Globulin 3.6 Albumin/Globulin Ratio 1.1 Lipase 25 Urine Color YELLOW Urine Clarity CLEAR Urine pH 6.0 Ur Specific [place] <=1.005 Urine Protein NEGATIVE Urine Glucose (UA) NEGATIVE Urine Ketones NEGATIVE Urine Occult Blood MODERATE H Urine Nitrite NEGATIVE Urine Bilirubin NEGATIVE Urine Urobilinogen 0.2 (NORMAL) Ur Leukocyte Esterase NEGATIVE Urine RBC 6-10 H Urine WBC 0-3 Ur Squamous Epith Cells FEW Squamous Urine Bacteria Rare Ur Microscopic Review INDICATED Urine Culture Comments NOT INDICATED Urine Opiates Screen NEGATIVE Ur Oxycodone Screen POSITIVE H Urine Methadone Screen NEGATIVE Ur Propoxyphene Screen NEGATIVE Ur Barbiturates Screen NEGATIVE Ur Tricyclics Screen NEGATIVE Ur Phencyclidine Scrn NEGATIVE Ur Amphetamine Screen NEGATIVE U Methamphetamines Scrn NEGATIVE U Benzodiazepines Scrn POSITIVE H Urine Cocaine Screen NEGATIVE U Cannabinoids Screen NEGATIVE Ethyl Alcohol 119.8 07/23/19 22:33 WBC 7.1 RBC 3.58 L Hgb 11.1 L Hct 33.1 L MCV 92.5 MCH 31.0 MCHC 33.5 RDW 15.0 Plt Count 153 MPV 8.6 Neut # (Auto) 4.4 Lymph # (Auto) 1.2 L [place] # (Auto) 0.9 Eos # (Auto) 0.4 Baso # (Auto) 0.1 Absolute Nucleated RBC 0.00 Nucleated RBC % 0.0 PT INR Sodium Potassium Chloride Carbon Dioxide Anion Gap BUN Creatinine Estimated GFR (MDRD) Glucose Calcium Total Bilirubin AST ALT Alkaline Phosphatase Total Protein Albumin Globulin Albumin/Globulin Ratio Lipase Urine Color Urine Clarity Urine pH Ur Specific [place] Urine Protein Urine Glucose (UA) Urine Ketones Urine Occult Blood Urine Nitrite Urine Bilirubin Urine Urobilinogen Ur Leukocyte Esterase Urine RBC Urine WBC Ur Squamous Epith Cells Urine Bacteria Ur Microscopic Review Urine Culture Comments Urine Opiates Screen Ur Oxycodone Screen Urine Methadone Screen Ur Propoxyphene Screen Ur Barbiturates Screen Ur Tricyclics Screen Ur Phencyclidine Scrn Ur Amphetamine Screen U Methamphetamines Scrn U Benzodiazepines Scrn Urine Cocaine Screen U Cannabinoids Screen Ethyl Alcohol PD MEDICAL DECISION MAKING - ED course Complexity details: d/w patient ED course: This patient fell and was transported to the emergency room by fulling machine operator. Initial assessment was negative for any neurological ophthalmology, there is no immediate obvious traumatic injury. Patient was reassessed at [address] scan of the brain, negative CT of the C-spine, chest x-ray is normal. He consistently asked for oxycodone 20 mg that he takes regularly. his is disclose laboratory result with chronic hyponatremia, chronic renal insufficiency and chronic lower back pain with neuropathy. He will be released back to assisted living facility and continue f/u with primary care doctor. Departure - Departure Disposition: 01 Home, Self Care Clinical Impression: Chronic pain syndrome Fall Qualifiers: Encounter type: initial encounter Qualified Code(s): W19.XXXA - Unspecified fall, initial encounter Condition: Stable Instructions: ED Chronic Pain Management Discharge Date/Time: 07/24/19 00:40
--- NOTE | 2019-07-23 22:08 | CT Report ---
Reason: Head trauma, mod-severe Procedure Date: 07/23/2019 Accession Number: [id number] / [id number] Procedure: CT - HEAD WO CPT Code: Final Report FULL RESULT: EXAM: CT HEAD EXAM DATE: 07/23/2019 09:45 PM. CLINICAL HISTORY: Head trauma, mod-severe. COMPARISON: HEAD W/O 04/23/2019 1:14 PM. TECHNIQUE: Multiaxial CT images were obtained from the foramen magnum to the vertex. Reformats: Sagittal and coronal. IV contrast: None. In accordance with CT protocol optimization, one or more of the following dose reduction techniques were utilized for this exam: automated exposure control, adjustment of mA and/or KV based on patient size, or use of iterative reconstructive technique. FINDINGS: Parenchyma: No intraparenchymal hemorrhage. No evidence of mass, midline shift, or CT findings of infarction. Nielson-white differentiation is distinct. Focal encephalomalacia is again noted in the right frontal lobe underlying a craniotomy defect. Small focal calcifications are again visualized and appear unchanged. Mild periventricular hypodensity is noted, nonspecific but most likely due to chronic microvascular ischemia. Extraaxial Spaces: Mild sulcal prominence again noted. No subdural or epidural collections identified. Ventricles: Stable in size and position. Sinuses and Orbits: Moderate mucosal thickening is visualized in the right maxillary sinus. There is scattered all opacification of several ethmoid air cells. Bones: No evidence of fracture or calvarial defect. Changes of craniotomy are again noted in the right posterior frontal calvarium. Other: Vascular calcification is visualized in the cavernous segments of the bilateral ICAs. IMPRESSION: 1. No evidence of acute intracranial hemorrhage. 2. Stable postsurgical changes in the right frontal lobe. 3. Stable white matter changes typical of chronic microvascular ischemia. Stable diffuse atrophy. RADIA
--- NOTE | 2019-07-23 22:10 | XRAY Report ---
Reason: sob Procedure Date: 07/23/2019 Accession Number: [id number] / [id number] Procedure: XR - Chest 1 View X-Ray CPT Code: 37167 Final Report FULL RESULT: EXAM: CHEST RADIOGRAPHY EXAM DATE: 07/23/2019 09:58 PM. CLINICAL HISTORY: Shortness of breath. Fall today. COMPARISON: CHEST 2 VIEW 04/25/2019 7:13 AM CHEST W/ 06/02/2019 3:13 PM. TECHNIQUE: 1 view. FINDINGS: Normal heart size. Left Port-A-Cath central line again noted. Right lateral loculated pleural effusion or pleural thickening, unchanged. Right midlung opacification appears mildly increased. No pneumothorax. No acute bone findings. IMPRESSION: Left Port-A-Cath central line again noted. Right lateral loculated pleural effusion or pleural thickening, unchanged. Right midlung opacification appears mildly increased. No pneumothorax. RADIA
[2019-07-23 22:14] LABS: INR 1.3 (0.8-1.2); PT - PROTHROMBIN TIME 14.1 secs (9.9-12.6)
--- NOTE | 2019-07-23 22:17 | CT Report ---
Reason: Neck trauma, midline tenderness Procedure Date: 07/23/2019 Accession Number: [id number] / [id number] Procedure: CT - CERVICAL SPINE WO CPT Code: Final Report FULL RESULT: EXAM: CT CERVICAL SPINE WITHOUT CONTRAST DATE: 07/23/2019 09:47 PM. HISTORY: Neck trauma, midline tenderness. COMPARISONS: CERVICAL SPINE W/O 08/20/2017 3:39 PM. TECHNIQUE: Thin-section axial images were acquired of the cervical spine without contrast. Post-processing: Coronal and sagittal reformats. Other: None. In accordance with CT protocol optimization, one or more of the following dose reduction techniques were utilized for this exam: automated exposure control, adjustment of mA and/or KV based on patient size, or use of iterative reconstructive technique. FINDINGS: Alignment: Within normal limits. No scoliosis or spondylolisthesis. Bones: No acute fractures. Redemonstration of mild degenerative changes at C5-C6. Spinal Canal: No high grade narrowing. Other: The paravertebral and prevertebral soft tissues are unremarkable. Visualized thyroid is unremarkable. The partially imaged lung apices demonstrate emphysematous changes. IMPRESSION: No acute cervical spine fractures. RADIA
[2019-07-23 22:22] LABS: ALBUMIN 3.8 g/dL (3.2-5.5); ALBUMIN/GLOBULIN RATIO 1.1 (1.0-2.2); ALKALINE PHOSPHATASE 87 IU/L (42-121); ALT ALANINE AMINOTRANSFERASE < 10 IU/L (10-60); AST ASPARTATE AMINOTRANSFERASE 20 IU/L (10-42); BILIRUBIN,TOTAL 0.5 mg/dL (0.2-1.0); BUN - BLOOD UREA NITROGEN 10 mg/dL (6-20); CALCIUM 8.4 mg/dL (8.5-10.3); CARBON DIOXIDE - CO2 25 mmol/L (21-32); CHLORIDE 87 mmol/L (101-111); CREATININE 0.9 mg/dL (0.6-1.2); GFR - MDRD 87 (>89); GLUCOSE 91 mg/dL (70-100); LIPASE 25 U/L (22-51); SODIUM 123 mmol/L (135-145); TOTAL PROTEIN 7.4 g/dL (6.7-8.2)
[2019-07-23 22:34] LABS: MUDS CUTOFF CONCENTRATIONS CUTOFF CONC BELOW:
[2019-07-23 22:38] LABS: BASOPHILS # (AUTO) 0.1 10^3/uL (0.0-0.1); BASOPHILS % (AUTO) 0.7 %; EOSINOPHILS # (AUTO) 0.4 10^3/uL (0.0-0.7); EOSINOPHILS % (AUTO) 6.2 %; HGB - HEMOGLOBIN 11.1 g/dL (14.0-18.0); LYMPHOCYTES # (AUTO) 1.2 10^3/uL (1.5-3.5); LYMPHOCYTES % (AUTO) 16.7 %; MEAN CORPUSCULAR HGB CONC 33.5 g/dL (32.0-36.0); MEAN CORPUSCULAR VOLUME 92.5 fL (80.0-94.0); MEAN PLATELET VOLUME 8.6 fL (7.4-11.4); MONOCYTES # (AUTO) 0.9 10^3/uL (0.0-1.0); MONOCYTES % (AUTO) 13.3 %; NEUTROPHILS # (AUTO) 4.4 10^3/uL (1.5-6.6); NEUTROPHILS % (AUTO) 62.7 %; PLT - PLATELET COUNT 153 10^3/uL (130-450); RED BLOOD COUNT 3.58 10^6/uL (4.70-6.10); WHITE BLOOD COUNT 7.1 x10^3/uL (4.8-10.8)
[2019-07-23 22:38] LABS: BILIRUBIN,URINE NEGATIVE (NEGATIVE); GLUCOSE, URINE (UA) NEGATIVE (NEGATIVE); KETONES,URINE (UA) NEGATIVE (NEGATIVE); LEUKOCYTE ESTERASE, URINE NEGATIVE (NEGATIVE); NITRITE,URINE NEGATIVE (NEGATIVE); OCCULT BLOOD,URINE MODERATE (NEGATIVE); PROTEIN,URINE NEGATIVE (NEGATIVE); UROBILINOGEN,URINE 0.2 (NORMAL) E.U./dL (NORMAL)
[2019-07-23 22:40] LABS: CLARITY,URINE CLEAR (CLEAR)
[2019-07-23 22:45] LABS: BACTERIA,URINE Rare /HPF (None Seen); SQUAMOUS EPITHELIAL CELL,UR FEW Squamous (<= Few)
[2019-07-23 22:49] LABS: AMPHETAMINE SCREEN,URINE NEGATIVE (NEGATIVE); BENZODIAZEPINES SCREEN, URINE POSITIVE (NEGATIVE); COCAINE SCREEN URINE NEGATIVE (NEGATIVE); METHADONE SCREEN, URINE NEGATIVE (NEGATIVE); METHAMPHETAMINES SCREEN, URINE NEGATIVE (NEGATIVE); OPIATE SCREEN, URINE NEGATIVE (NEGATIVE); OXYCODONE SCREEN, URINE POSITIVE (NEGATIVE); PROPOXYPHENE SCREEN, URINE NEGATIVE (NEGATIVE); TRICYCLIC ANTIDEPRESSANT,URINE NEGATIVE (NEGATIVE)
[2019-07-24] MEDS ORDERED: oxyCODONE 5 MG TABLET PO STA (00:01)
[2019-07-24 00:45] VITALS: BP 128/72
== END 2019-07-24 00:40 | disposition home or self-care (01) ==
LOC: EDUNIT# → ED 21:19
DX: S09.90XA Unspecified injury of head, initial encounter (principal); M54.2 Cervicalgia; W06.XXXA Fall from bed, initial encounter; G89.4 Chronic pain syndrome; E87.1 Hypo-osmolality and hyponatremia; I13.0 Hypertensive heart and chronic kidney disease with heart failure and stage 1 through stage 4 chronic kidney disease, or unspecified chronic kidney disease; N18.9 Chronic kidney disease, unspecified; I50.9 Heart failure, unspecified; M54.5 Low back pain; G62.9 Polyneuropathy, unspecified; I73.9 Peripheral vascular disease, unspecified; J44.9 Chronic obstructive pulmonary disease, unspecified; F17.200 Nicotine dependence, unspecified, uncomplicated; F03.90 Unspecified dementia, unspecified severity, without behavioral disturbance, psychotic disturbance, mood disturbance, and anxiety
CPT/HCPCS: 36415; 70450; 71045; 72125; 80053; 80306; 80320; 81001; 83690; 85025; 85610; 99284; A9270; 81003; 87086

== ENCOUNTER 2019-08-03 20:24 | Outpatient (CLI) | payer MEDICAID | END 2019-08-03 20:25 | disposition critical access hospital (66) | LOC: EMS 20:24 | PROVIDERS: ATTEND Surgery | DX: R53.1 Weakness (principal) | CPT/HCPCS: A0425; A0429 ==

== ENCOUNTER 2019-08-03 20:40 | Emergency (ER) | payer MEDICAID ==
--- NOTE | 2019-08-03 20:55 | ED Physician Documentation ---
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 Patient states for last 4 days he has felt general weakness, he also feels that his upper arms are slightly tingly from the shoulders down. This is somewhat intermittent but has become more constant. He denies weakness in his hands and he can still feel touch. He still been able to walk, he states that he has some neuropathy but not diabetes. He Babar pacifically endorses some mild intermittent chest pain which is similar to chest pain he has all the time, and he always has some shortness of breath and states this has maybe been slightly worse from time to time. No changes in his cough. No fever. No vomiting or diarrhea, no abdominal pain. He does have neck pain, which is chronic. Patient states that he has a history of brain surgery, and his head. He denies headache at this time. Review of Systems Constitutional: denies: Fever Nose: denies: Congestion Cardiac: denies: Chest pain / pressure Respiratory: reports: Dyspnea GI: denies: Abdominal Pain : denies: Dysuria Skin: denies: Rash Musculoskeletal: reports: Neck pain Neurologic: reports: Generalized weakness PD PAST MEDICAL HISTORY - Past Medical History Cardiovascular: Congestive heart failure, Hypertension, Coronary artery disease, Peripheral Vascular Disease Respiratory: COPD, Shortness of breath, Other Neuro: Dementia, Headaches, Peripheral neuropathy, Seizure disorder, Other Endocrine/Autoimmune: None GI: GERD, Chronic constipation, Diverticulitis MEAT STUFFER: None : Benign prostate hypertrophy, Incontinence, Nocturia, Frequency HEENT: Chronic vision loss, Other (No cervical spinal process tenderness, c- collar applied by it help desk technician,) Psych: Anxiety Musculoskeletal: Chronic back pain, Other Derm: Other - Past Surgical History Past Surgical History: Yes Ortho: Amputation Cardiovascular: Cardiac catheterization Neuro: Craniotomy, Gamma knife - Present Medications Home Medications: Ambulatory Orders Medication Instructions Recorded Confirmed Lorazepam [Ativan] 1 mg PO Q8HR PRN 09/23/15 08/03/19 Tamsulosin [Flomax] 0.4 mg PO DAILY 06/29/16 08/03/19 Oxycodone HCl 10 - 20 mg PO Q4HR PRN MDD 8 tabs 07/26/17 08/03/19 Lidocaine Ointment 5% [Xylocaine 1 applic TOP PRN PRN 08/20/17 08/03/19 Ointment 5%] Gabapentin [Neurontin] 1,600 mg PO BID 09/27/17 08/03/19 Levetiracetam [Keppra] 500 mg PO BID #30 tablet 11/23/17 08/03/19 Ondansetron Odt [Zofran Odt] 4 mg TL Q6H PRN #15 tablet 03/19/18 08/03/19 Albuterol Sulf [Ventolin Hfa 2 puffs INH Q4HR PRN 05/09/18 07/16/19 Inhaler] Melatonin 3 - 6 mg PO QPM PRN 05/09/18 08/03/19 diphenhydrAMINE [Benadryl] 25 mg PO Q6HR PRN 10/04/18 08/03/19 Chlorhexidine Gluconate [Peridex] 15 ml PO DAILY PRN 12/18/18 07/16/19 Esomeprazole Magnesium [Nexium] 20 mg PO DAILY 12/18/18 08/03/19 Magnesium 250 mg PO BID 12/18/18 08/03/19 Oxycodone HCl [Oxycontin] 20 mg PO Q12H 12/18/18 08/03/19 polyethylene glycoL 3350 [Miralax] 17 gm PO DAILY PRN 12/18/18 08/03/19 Budesonide/Formoterol Fumarate 2 puffs IH BID 12/20/18 08/03/19 [Symbicort 160-4.5 Mcg Inhaler] Montelukast [Singulair] 10 mg PO QPM #30 tablet 12/28/18 08/03/19 Ipratropium/Albuterol [Duoneb] 3 ml INH Q4HR PRN MDD hold no 02/15/19 07/16/19 nebulizzer Loperamide HCl [Loperamide] 2 mg PO QID PRN 02/23/19 08/03/19 Ferrous Sulfate 325 mg PO DAILY #15 tablet 02/25/19 08/03/19 Spironolactone [Aldactone] 25 mg PO BIDWM #20 tablet 03/12/19 08/03/19 Torsemide 20 mg PO BID 03/22/19 08/03/19 Docusate Sodium 200 mg PO DAILY PRN 05/13/19 08/03/19 Magnesium Hydroxide [Milk of 30 ml PO DAILY PRN 05/13/19 08/03/19 Magnesia] Doxycycline Hyclate 100 mg PO BID #20 capsule 06/08/19 08/03/19 LORazepam [Lorazepam] 0.5 mg PO PRN 07/17/19 Oxycodone HCl 10 mg PO PRN 07/17/19 - Allergies Allergies/Adverse Reactions: Allergies Allergy/AdvReac Type Severity Reaction Status Date / Time BRONWYN Inhibitors Allergy Emesis Verified 08/03/19 20:50 clavulanic acid Allergy Emesis Verified 08/03/19 20:50 [From Augmentin] lisinopril Allergy "THROAT Verified 08/03/19 20:50 SWELLING" - Social History Does the pt smoke?: Yes Smoking Status: Current every day smoker Does the pt drink ETOH?: Yes Does the pt have substance abuse?: No - Immunizations Immunizations are current?: Yes - POLST Patient has POLST: No POLST Status: Full Code PD ED PE NORMAL - General General: Alert and oriented X 3, Other (Appears older than stated age, C hronically ill-appearing.) - HEENT HEENT: Atraumatic - Neck Neck: Other (Kyphotic, no significant tenderness to palpation in the midline, patient is able to look left and right with decent range of motion to past 45 degrees.) - Cardiac Cardiac: RRR - Respiratory Respiratory: No respiratory distress, Other (Intermittent cough, very mild expiratory wheeze.) - Abdomen Abdomen: Soft, Non tender, Non distended - Male Male : Other (Normal-appearing external male genitalia) - Extremities Extremities: Other (First through fourth toes are missing on the foot. Mild edema of the left leg.) - Neuro Neuro: Alert and oriented X 3, transplant nurse 2-12 intact, Normal speech, Other (5 out of 5 strength with hand squeeze finger abduction wrist extension elbow flexion and extension shoulder abduction bilaterally. Sensation to light touch is intact over the entire bilateral upper extremities. Capillary refill is symmetric, distal pulses are strong in the radius and ulna bilaterally. Patient has reduced sensation to light touch over the bilateral lower extremities to the level of the hernandez, patient states this is Chronic. He has 5-5 strength with hip flexion knee extension ankle dorsiflexion and plantarflexion.) Results - Vitals Vitals: Vital Signs - 24 hr 08/03/19 08/03/19 08/03/19 20:42 21:03 21:35 Temperature 36.8 C Heart Rate 78 75 72 Respiratory 18 14 12 Rate Blood Pressure 121/75 114/75 120/75 O2 Saturation 94 100 100 08/03/19 22:36 Temperature Heart Rate 73 Respiratory 20 Rate Blood Pressure 114/75 O2 Saturation 99 Oxygen O2 Source [] Room air O2 Source Nasal cannula Oxygen Flow Rate 2 - EKG (time done) 20:51 Other comments: Other comments (Rate 74, rhythm sinus, no ST segment elevation or depression, No abnormal T wave changes. QTc 480.) - Labs Labs: Laboratory Tests 08/03/19 08/03/19 08/03/19 20:52 20:52 21:01 WBC 5.1 RBC 3.64 L Hgb 11.4 L Hct 33.4 L MCV 91.8 MCH 31.3 H MCHC 34.1 RDW 14.8 Plt Count 116 L MPV 9.0 Neut # (Auto) 3.1 Lymph # (Auto) 0.9 L [place] # (Auto) 0.6 Eos # (Auto) 0.4 Baso # (Auto) 0.0 Absolute Nucleated RBC 0.00 Nucleated RBC % 0.0 Sodium Potassium Chloride Carbon Dioxide Anion Gap BUN Creatinine Estimated GFR (MDRD) Glucose Calcium Total Bilirubin AST ALT Alkaline Phosphatase Troponin I High Sens B-Natriuretic Peptide 91 Total Protein Albumin Globulin Albumin/Globulin Ratio Lipase TSH Urine Color YELLOW Urine Clarity CLEAR Urine pH 6.0 Ur Specific Skip[place] 1.010 Urine Protein NEGATIVE Urine Glucose (UA) NEGATIVE Urine Ketones NEGATIVE Urine Occult Blood MODERATE H Urine Nitrite NEGATIVE Urine Bilirubin NEGATIVE Urine Urobilinogen 0.2 (NORMAL) Ur Leukocyte Esterase NEGATIVE Urine RBC 6-10 H Urine WBC 0-3 Ur Squamous Epith Cells NONE SEEN Urine Bacteria None Seen Urine Culture Comments NOT INDICATED Ethyl Alcohol 08/03/19 08/03/19 08/03/19 21:01 21:01 21:01 WBC RBC Hgb Hct MCV MCH MCHC RDW Plt Count MPV Neut # (Auto) Lymph # (Auto) [place] # (Auto) Eos # (Auto) Baso # (Auto) Absolute Nucleated RBC Nucleated RBC % Sodium 123 L Potassium 4.2 Chloride 86 L Carbon Dioxide 25 Anion Gap 12.0 BUN 12 Creatinine 0.9 Estimated GFR (MDRD) 87 L Glucose 91 Calcium 8.2 L Total Bilirubin 0.5 AST 20 ALT < 10 L Alkaline Phosphatase 79 Troponin I High Sens 3.9 B-Natriuretic Peptide Total Protein 7.2 Albumin 3.7 Globulin 3.5 Albumin/Globulin Ratio 1.1 Lipase 28 TSH 2.83 Urine Color Urine Clarity Urine pH Ur Specific Skipwith Urine Protein Urine Glucose (UA) Urine Ketones Urine Occult Blood Urine Nitrite Urine Bilirubin Urine Urobilinogen Ur Leukocyte Esterase Urine RBC Urine WBC Ur Squamous Epith Cells Urine Bacteria Urine Culture Comments Ethyl Alcohol 169.1 PD MEDICAL DECISION MAKING - ED course Complexity details: considered differential (Electrolyte abnormality, neuropathy, stroke, radiculopathy, intracranial abnormality, hemorrhage, spinal cord compression, ACS, dysrhythmia) ED course: Patient is nontoxic-appearing on arrival, vital signs are unremarkable. His neurologic exam he is signs and neuropathy on his extremities which are chronic, he does not have any other deficit appreciated, his sensation is intact to light touch over his bilateral upper extremities his strength is excellent. I doubt Teagan Packer given the onset of his symptoms 4 days ago in the complete stability of them since that time.He has no deficits to suggest stroke. He is urinating normally, does not have any saddle anesthesia, no convincing symptoms of cauda equina or other acute cord compression. He fell several weeks ago and he had some scans done at that time but it sounds like he may have had new head trauma in the anterior arm, so a scan of his head and neck was performed CT scan of the head showed no acute intracranial abnormality, the neck shows some degenerative changes with some foraminal stenosis but these are not consistent with his symptoms, as is distribution of his sensation changes reportedly from his shoulders down bilaterally, and not in a radicular type distribution. And again his neurologic exam does not show any deficits. His labs do show a hyponatremia of 123, though this is stable from recent values. His ethanol level is elevated at 169 consistent with his alcohol use. Chest x-ray shows no change from prior. EKG and troponin showed no acute signs of ischemia or dysrhythmia. He is ambulatory, continues to have unremarkable vital signs, and appears to be at his baseline. No neurologic changes, continues to have sensation intact light touch on my examination his strength is normal. I discussed lab abnormalities with Dr. Soler of our hospitalist service, and he agrees that these are chronic, and does not see indication for admission to the hospital at this time. I discussed with the patient that he needs to be taking daily vitamins, stop drinking alcohol, and follow-up with primary care provider closely. Also discussed return precautions with any new or changing neurologic symptoms, Or other concerning symptoms such as chest pain or shortness of breath which is different from his baseline. Patient agrees this plan and was discharged back to [facility]. Departure - Departure Disposition: , Self Care Clinical Impression: Hyponatremia, Weakness Condition: Stable Follow-Up: Gaeln Bro MD [Primary Care Provider] - Comments: You were seen today for general weakness as well as sensation changes in your arms. Your labs show your sodium is low at 123, though this is stable from where it has been recently. This may be contributing to your symptoms, and is likely caused in part by your drinking, please stop drinking alcohol. Make sure you are taking a multivitamin daily and eating a variety of foods in your diet. You also had several red blood cells in your urine, but I do not see signs of infection. Please follow-up with your primary care provider on both the small amount of blood in your urine as well as your low sodium. You should have your sodium rechecked this week to make sure it is not getting worse. If you are having worsening symptoms like we discussed, such as increasing weakness, w eakness on one side of your body, passing out, or other concerning symptoms return to the emergency department. You do have some signs of arthritis in your neck, I do not think these explain the sensation changes you have in your arms, but please follow-up on the scans with your primary care provider to determine if further imaging is necessary.
[2019-08-03 21:06] LABS: BASOPHILS % (AUTO) 0.6 %; EOSINOPHILS # (AUTO) 0.4 10^3/uL (0.0-0.7); EOSINOPHILS % (AUTO) 7.3 %; HGB - HEMOGLOBIN 11.4 g/dL (14.0-18.0); LYMPHOCYTES # (AUTO) 0.9 10^3/uL (1.5-3.5); MEAN CORPUSCULAR HEMOGLOBIN 31.3 pg (27.0-31.0); MEAN CORPUSCULAR HGB CONC 34.1 g/dL (32.0-36.0); MEAN CORPUSCULAR VOLUME 91.8 fL (80.0-94.0); MONOCYTES # (AUTO) 0.6 10^3/uL (0.0-1.0); MONOCYTES % (AUTO) 12.6 %; NEUTROPHILS # (AUTO) 3.1 10^3/uL (1.5-6.6); NEUTROPHILS % (AUTO) 61.1 %; PLT - PLATELET COUNT 116 10^3/uL (130-450); RED BLOOD COUNT 3.64 10^6/uL (4.70-6.10); RED CELL DISTRIBUTION WIDTH 14.8 % (12.0-15.0); WHITE BLOOD COUNT 5.1 x10^3/uL (4.8-10.8)
[2019-08-03 21:09] LABS: BILIRUBIN,URINE NEGATIVE (NEGATIVE); GLUCOSE, URINE (UA) NEGATIVE (NEGATIVE); KETONES,URINE (UA) NEGATIVE (NEGATIVE); LEUKOCYTE ESTERASE, URINE NEGATIVE (NEGATIVE); NITRITE,URINE NEGATIVE (NEGATIVE); OCCULT BLOOD,URINE MODERATE (NEGATIVE); PROTEIN,URINE NEGATIVE (NEGATIVE); UROBILINOGEN,URINE 0.2 (NORMAL) E.U./dL (NORMAL)
[2019-08-03 21:10] LABS: CLARITY,URINE CLEAR (CLEAR)
[2019-08-03 21:18] LABS: BACTERIA,URINE None Seen /HPF (None Seen); SQUAMOUS EPITHELIAL CELL,UR NONE SEEN (<= Few)
[2019-08-03 21:21] LABS: ALBUMIN 3.7 g/dL (3.2-5.5); ALBUMIN/GLOBULIN RATIO 1.1 (1.0-2.2); ALKALINE PHOSPHATASE 79 IU/L (42-121); ALT ALANINE AMINOTRANSFERASE < 10 IU/L (10-60); AST ASPARTATE AMINOTRANSFERASE 20 IU/L (10-42); BILIRUBIN,TOTAL 0.5 mg/dL (0.2-1.0); BUN - BLOOD UREA NITROGEN 12 mg/dL (6-20); CALCIUM 8.2 mg/dL (8.5-10.3); CARBON DIOXIDE - CO2 25 mmol/L (21-32); CHLORIDE 86 mmol/L (101-111); CREATININE 0.9 mg/dL (0.6-1.2); GFR - MDRD 87 (>89); GLUCOSE 91 mg/dL (70-100); LIPASE 28 U/L (22-51); SODIUM 123 mmol/L (135-145); TOTAL PROTEIN 7.2 g/dL (6.7-8.2)
--- NOTE | 2019-08-03 21:39 | XRAY Report ---
Reason: Chest Pain Procedure Date: 08/03/2019 Accession Number: [id number] / [id number] Procedure: XR - Chest 1 View X-Ray CPT Code: 20674 Final Report FULL RESULT: EXAM: CHEST RADIOGRAPHY EXAM DATE: 08/03/2019 09:07 PM. CLINICAL HISTORY: Chest Pain. COMPARISON: CHEST 1 VIEW 07/23/2019 9:38 PM. TECHNIQUE: 1 view. FINDINGS: Lungs/Pleura: Chronic scarlike opacities in right mid hemithorax with volume loss, unchanged since 07 23 19. Mild scarring in left midlung zone as well. No acute superimposed pathology. No focal opacities evident. No pleural effusion. No pneumothorax. Mediastinum: Within exam limitations, the cardiomediastinal contour is normal. Well positioned left Port-A-Cath. Other: None. IMPRESSION: Chronic scarlike opacities in both lungs, right greater than left. No acute superimposed pathology. [facility]
--- NOTE | 2019-08-03 22:01 | CT Report ---
Reason: Fall, hx brain surgery, arm paresthesia Procedure Date: 08/03/2019 Accession Number: [id number] / [id number] Procedure: CT - HEAD WO CPT Code: Final Report FULL RESULT: EXAM: CT HEAD EXAM DATE: 08/03/2019 09:32 PM. CLINICAL HISTORY: Fall, hx brain surgery, arm paresthesia. COMPARISON: HEAD W/O 07/23/2019 9:42 PM. TECHNIQUE: Multiaxial CT images were obtained from the foramen magnum to the vertex. Reformats: Sagittal and coronal. IV contrast: None. In accordance with CT protocol optimization, one or more of the following dose reduction techniques were utilized for this exam: automated exposure control, adjustment of mA and/or KV based on patient size, or use of iterative reconstructive technique. FINDINGS: Parenchyma: No mass-effect, midline shift, or intraparenchymal hemorrhage. Periventricular white matter disease is likely chronic microangiopathy, unchanged compared to the prior exam. More focal area of decreased attenuation and calcification in the right frontal lobe near the vertex. Also was seen previously. Extraaxial Spaces: Normal for age. No subdural or epidural collections identified. Ventricles: Normal in size and position. Sinuses and Orbits: Imaged paranasal sinuses, orbits, and mastoids show no significant abnormality. Bones: Status post right frontoparietal craniotomy. No acute bony abnormality. Other: None. IMPRESSION: No acute intracranial abnormality. [facility]
--- NOTE | 2019-08-03 22:07 | CT Report ---
Reason: Neck pain, arm paresthesia Procedure Date: 08/03/2019 Accession Number: [id number] / [id number] Procedure: CT - CERVICAL SPINE WO CPT Code: Final Report FULL RESULT: EXAM: CT CERVICAL SPINE WITHOUT CONTRAST DATE: 08/03/2019 09:34 PM. HISTORY: Neck pain, arm paresthesia. COMPARISONS: CERVICAL SPINE W/O 07/23/2019 9:45 PM. TECHNIQUE: Thin-section axial images were acquired of the cervical spine without contrast. Post-processing: Coronal and sagittal reformats. Other: None. Patient is very kyphotic in position within the CT scanner. In accordance with CT protocol optimization, one or more of the following dose reduction techniques were utilized for this exam: automated exposure control, adjustment of mA and/or KV based on patient size, or use of iterative reconstructive technique. FINDINGS: Alignment: No scoliosis or spondylolisthesis. Bones: No fracture or bone lesion. Interspace Levels/Facets: C1-C2: Mild degenerative disease. C2-C3: Unremarkable. C3-C4: Mild left uncovertebral hypertrophic changes. Mild to moderate left neural foraminal stenosis. C4-C5: Unremarkable. C5-C6: Mild disk height loss. Posterior disk osteophyte complex as was seen previously. Bilateral uncovertebral hypertrophic changes. Mild to moderate left neural foraminal stenosis and moderate to severe right neural foraminal stenosis. C6-C7: Unremarkable. C7-T1: Unremarkable. Musculature: Normal. No fatty atrophy. Other: The paravertebral and prevertebral soft tissues are unremarkable. Lung apices not well seen. IMPRESSION: No fracture or subluxation. No change compared to 07/23/2019. [facility]
[2019-08-03] MEDS ORDERED: ONDANSETRON ODT 4 MG TABLET TL STA (22:34)
[2019-08-03] MEDS ORDERED: THIAMINE 100 MG TABLET PO STA (22:40)
--- NOTE | 2019-08-03 22:49 | Ultrasound Report ---
Reason: Leg swelling, assess for DVT Procedure Date: 08/03/2019 Accession Number: [id number] / [id number] Procedure: US - Duplex Ext Veins Left CPT Code: Final Report FULL RESULT: EXAM: LEFT LOWER EXTREMITY VENOUS ULTRASOUND EXAM DATE: 08/03/2019 10:12 PM. CLINICAL HISTORY: Leg swelling, assess for DVT. COMPARISON: None. TECHNIQUE: Real-time sonographic vascular imaging was performed by the mail messenger through the lower extremity utilizing both color-flow and Doppler spectral analysis. Multiple financial representative static images were saved for review. FINDINGS: Common Femoral Vein (CFV): Normal. CFV-GSV Junction: Normal. Profunda Femoral Vein (PFV): Normal. Femoral Vein (FV) Prox: Normal. Femoral Vein (FV) Mid: Normal. Femoral Vein (FV) Dist: Normal. Popliteal Vein: Normal. Calf Veins: Not well visualized. Other: Subcutaneous edema of the calf. IMPRESSION: No evidence for deep venous thrombosis. [facility]
[2019-08-03] MEDS ORDERED: FOLIC ACID 1 MG TABLET PO SCH (23:04)
[2019-08-03 23:22] VITALS: BP 118/72
[2019-08-04] MEDS ORDERED: FOLIC ACID 1 MG TABLET PO SCH (09:00)
== END 2019-08-03 23:27 | disposition home or self-care (01) ==
LOC: EDUNIT# → ED 20:40
DX: E87.1 Hypo-osmolality and hyponatremia (principal); R53.1 Weakness; R20.2 Paresthesia of skin; M47.812 Spondylosis without myelopathy or radiculopathy, cervical region; F10.929 Alcohol use, unspecified with intoxication, unspecified; Y90.6 Blood alcohol level of 120-199 mg/100 ml; I11.0 Hypertensive heart disease with heart failure; I50.9 Heart failure, unspecified; J44.9 Chronic obstructive pulmonary disease, unspecified; F17.200 Nicotine dependence, unspecified, uncomplicated; G62.9 Polyneuropathy, unspecified; I73.9 Peripheral vascular disease, unspecified; Z89.422 Acquired absence of other left toe(s); F03.90 Unspecified dementia, unspecified severity, without behavioral disturbance, psychotic disturbance, mood disturbance, and anxiety
CPT/HCPCS: 36415; 70450; 71045; 72125; 80053; 80320; 81001; 83690; 83880; 84443; 84484; 85025; 93005; 93971; 99284; 99285; A9270; Q0162; 87086

== ENCOUNTER 2019-08-05 15:00 | Outpatient (CLI) | payer MEDICAID ==
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
== END 2019-08-05 15:01 | disposition home or self-care (01) ==
LOC: PC 15:00
PROVIDERS: ATTEND Nurse Practitioner Adult Health
DX: Z51.5 Encounter for palliative care (principal); E87.1 Hypo-osmolality and hyponatremia; R53.1 Weakness; G62.9 Polyneuropathy, unspecified; M40.209 Unspecified kyphosis, site unspecified; R21 Rash and other nonspecific skin eruption; L29.9 Pruritus, unspecified; F41.9 Anxiety disorder, unspecified; G89.29 Other chronic pain; C34.90 Malignant neoplasm of unspecified part of unspecified bronchus or lung; C79.31 Secondary malignant neoplasm of brain; Z79.899 Other long term (current) drug therapy; Z79.891 Long term (current) use of opiate analgesic; Z72.89 Other problems related to lifestyle; Z89.412 Acquired absence of left great toe

== ENCOUNTER 2019-10-15 14:05 | Outpatient (CLI) | payer MEDICAID ==
[2019-10-15] MEDS ORDERED: IOVERSOL 320 50 ML VIAL ONE (14:11)
[2019-10-15] MEDS ORDERED: IOVERSOL 320 100 ML VIAL IVP ONE ×2 (14:11→15:30)
[2019-10-15] MEDS ORDERED: IOVERSOL 320 50 ML VIAL PO ONE (15:30)
--- NOTE | 2019-10-16 14:17 | CT Report ---
Reason: LUNG CANCER Procedure Date: 10/15/2019 Accession Number: [id number] / [id number] Procedure: CT - Abdomen/Pelvis W CPT Code: Final Report FULL RESULT: EXAM: CT ABDOMEN AND PELVIS EXAM DATE: 10/15/2019 03:25 PM. CLINICAL HISTORY: LUNG CANCER. COMPARISONS: ABDOMEN/PELVIS W/ 06/02/2019 3:13 PM CHEST W 10/15/2019 3:15 PM. TECHNIQUE: Routine helical CT imaging was performed through the abdomen and pelvis. IV contrast: 100 mL Optiray 320. Enteric contrast: Yes. Reconstructions: Coronal and sagittal. In accordance with CT protocol optimization, one or more of the following dose reduction techniques were utilized for this exam: automated exposure control, adjustment of mA and/or KV based on patient size, or use of iterative reconstructive technique. FINDINGS: Lung Bases: See same-day chest CT dictation Liver: Normal. No masses. Gallbladder/Bile Ducts: Unremarkable. Spleen: Normal. Incidental splenule. Pancreas: Moderate atrophy. No ductal dilatation. No mass. Adrenal Glands: Normal. Kidneys: Normal. No masses or hydronephrosis. Peritoneal Cavity/Bowel: Large sigmoid colon containing left inguinal hernia, without colonic obstruction, incompletely imaged. The appendix is well visualized and normal. Pelvic Organs: Normal. The bladder and visualized pelvic organs are within normal limits. Vasculature: No aneurysms or other significant abnormality. Bones: Large multilevel endplate Schmorl's nodes. Other: Rectus diastases. Small fat-containing right inguinal hernia. IMPRESSION: 1. No evidence of metastatic disease in the abdomen or pelvis. 2. Large sigmoid colon containing left inguinal hernia [facility]
--- NOTE | 2019-10-16 15:49 | CT Report ---
Reason: LUNG CANCER Procedure Date: 10/15/2019 Accession Number: [id number] / [id number] Procedure: CT - CHEST W CPT Code: Final Report FULL RESULT: EXAM: CT CHEST EXAM DATE: 10/15/2019 03:25 PM. CLINICAL HISTORY: Lung cancer. COMPARISONS: CHEST W/ 06/02/2019 3:13 PM CHEST W/O 12/19/2018 9:42 PM CHEST W/ 11/05/2018 2:05 PM. TECHNIQUE: Routine helical CT imaging was performed through the chest. IV contrast: 100 mL Optiray 320. Reconstructions: Coronal and sagittal. In accordance with CT protocol optimization, one or more of the following dose reduction techniques were utilized for this exam: automated exposure control, adjustment of mA and/or KV based on patient size, or use of iterative reconstructive technique. FINDINGS: Thyroid Gland: Normal as visualized. Lungs/Pleura: Advanced paraseptal and centrilobular emphysema, as before. Compared to 06/02/2019 and 11/05/2018, similar appearance of masslike consolidation in the posterior right upper lobe abutting the oblique fissure now measuring approximately 6.0 x 1.5 x 3.1 cm (3/170, 5/131), previously 7.1 x 1.6 x 3.1 cm on 06/02/2019. Several scattered tiny pulmonary nodules are also unchanged compared to 06/02/2019, for example a 2 mm nodule in the posterior right upper lobe (3/110), a 2 mm nodule in the central right upper lobe (3/121), a 3 mm nodule in the posteromedial right lower lobe base (3/252), a 3 mm subpleural nodule in the lateral left apex (3/61), and a 3 mm nodule in the superior segment of the left lower lobe (3/147). Interval slightly decrease size of trace loculated right pleural effusion with adjacent pleural thickening. Heart and Great Vessels: Heart size is normal. Moderate atherosclerotic calcifications within the coronary arteries and aorta. Incidentally noted aortic ductus diverticulum. The central pulmonary arteries are dilated with the pulmonary trunk measuring 4.0 cm, suggesting pulmonary arterial hypertension. The visualized central pulmonary arteries are otherwise unremarkable. Thoracic Lymph Nodes: Multiple prominent mediastinal nodes are unchanged compared to 06/02/2019 but have slightly increased in size compared to 11/05/2018, for example a 1.2 x 1.1 cm right upper paratracheal node (24), previously 1.3 x 1.0 cm on 06/02/2019 and 0.9 x 0.9 cm on 11/05/2018, and a 1.5 x 1.2 cm left lower paratracheal node (43), previously 1.5 x 1.2 cm on 06/02/2019 and 1.1 x 0.8 cm on 11/05/2018. Bones: No suspicious lytic or blastic osseous lesions. Visualized Abdomen: Cholelithiasis. Other: Mild bilateral gynecomastia. IMPRESSION: 1. Advanced paraseptal and centrilobular emphysema, as before. 2. Similar appearance of masslike consolidation in the posterior right upper lobe compared to prior exams from 06/02/2019 and 11/05/2018; the area is obscured by airspace disease on the 12/19/2018 images. 3. Several scattered tiny pulmonary nodules are stable compared to 06/02/2019; comparison to more remote exams is limited by technical differences with thicker slices on the comparison exams. 4. Multiple prominent mediastinal nodes are unchanged compared to 06/02/2019 but have slightly increased in size compared to 11/05/2018, nonspecific. 5. Interval decreased size of trace loculated right pleural effusion with adjacent pleural thickening. [facility]
== END 2019-10-15 14:06 | disposition home or self-care (01) ==
LOC: DI 14:05
PROVIDERS: ATTEND Internal Medicine
DX: C34.90 Malignant neoplasm of unspecified part of unspecified bronchus or lung (principal); D69.6 Thrombocytopenia, unspecified; K40.90 Unilateral inguinal hernia, without obstruction or gangrene, not specified as recurrent; J43.2 Centrilobular emphysema; J90 Pleural effusion, not elsewhere classified
CPT/HCPCS: 71260; 74177

== ENCOUNTER 2019-10-27 11:00 | Outpatient (CLI) | payer MEDICAID ==
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
== END 2019-10-27 11:01 | disposition home or self-care (01) ==
LOC: PC 11:00
PROVIDERS: ATTEND Nurse Practitioner Adult Health
DX: Z51.5 Encounter for palliative care (principal); L89.893 Pressure ulcer of other site, stage 3; I73.9 Peripheral vascular disease, unspecified; G62.9 Polyneuropathy, unspecified; K59.03 Drug induced constipation; T40.2X5D Adverse effect of other opioids, subsequent encounter; G89.29 Other chronic pain; R53.1 Weakness; F17.210 Nicotine dependence, cigarettes, uncomplicated; C79.31 Secondary malignant neoplasm of brain; C34.90 Malignant neoplasm of unspecified part of unspecified bronchus or lung; Z79.899 Other long term (current) drug therapy; Z79.891 Long term (current) use of opiate analgesic; Z72.89 Other problems related to lifestyle

== ENCOUNTER 2019-11-17 18:24 | Outpatient (CLI) | payer MEDICAID | END 2019-11-17 18:25 | disposition EMS.NT | LOC: EMS 18:24 | PROVIDERS: ATTEND Surgery | DX: R52 Pain, unspecified (principal) ==

== ENCOUNTER 2020-02-06 10:45 | Outpatient (CLI) | payer MEDICAID ==
[2020-02-06 11:04] LABS: BASOPHILS # (AUTO) 0.1 10^3/uL (0.0-0.1); BASOPHILS % (AUTO) 0.7 %; EOSINOPHILS # (AUTO) 0.6 10^3/uL (0.0-0.7); EOSINOPHILS % (AUTO) 7.7 %; HGB - HEMOGLOBIN 12.9 g/dL (14.0-18.0); LYMPHOCYTES # (AUTO) 1.4 10^3/uL (1.5-3.5); LYMPHOCYTES % (AUTO) 19.3 %; MEAN CORPUSCULAR HEMOGLOBIN 31.2 pg (27.0-31.0); MEAN CORPUSCULAR HGB CONC 34.2 g/dL (32.0-36.0); MEAN CORPUSCULAR VOLUME 91.3 fL (80.0-94.0); MEAN PLATELET VOLUME 8.9 fL (7.4-11.4); MONOCYTES # (AUTO) 0.8 10^3/uL (0.0-1.0); MONOCYTES % (AUTO) 10.6 %; NEUTROPHILS # (AUTO) 4.4 10^3/uL (1.5-6.6); NEUTROPHILS % (AUTO) 61.4 %; PLT - PLATELET COUNT 116 10^3/uL (130-450); RED BLOOD COUNT 4.13 10^6/uL (4.70-6.10); RED CELL DISTRIBUTION WIDTH 13.6 % (12.0-15.0); WHITE BLOOD COUNT 7.2 x10^3/uL (4.8-10.8)
[2020-02-06 11:18] LABS: ALBUMIN 4.2 g/dL (3.2-5.5); ALBUMIN/GLOBULIN RATIO 1.1 (1.0-2.2); BILIRUBIN,TOTAL 0.9 mg/dL (0.2-1.0); CREATININE 1.3 mg/dL (0.6-1.2); CRP - C-REACTIVE PROTEIN 1.6 mg/dL (0-1.0); TOTAL PROTEIN 7.9 g/dL (6.7-8.2)
== END 2020-02-06 10:46 | disposition home or self-care (01) ==
LOC: LAB 10:45
PROVIDERS: ATTEND Nurse Practitioner Adult Health
DX: S91.302A Unspecified open wound, left foot, initial encounter (principal); Z79.899 Other long term (current) drug therapy
CPT/HCPCS: 36415; 80053; 85025; 85651; 86140

== ENCOUNTER 2020-02-06 11:01 | Outpatient (CLI) | payer MEDICAID ==
--- NOTE | 2020-02-06 15:53 | XRAY Report ---
PROCEDURE: Foot 3 View LT INDICATIONS: WOUND INFECTION L FOOT TECHNIQUE: 3 views of the foot were acquired. COMPARISON: X-ray foot 06/08/2019 FINDINGS: Bones: There is amputation distal to the metatarsals of the first through fourth digits. No definitiv e areas of erosion are identified. No suspicious bony lesions. Soft tissues: No tibiotalar joint effusion. Achilles tendon appears normal. IMPRESSION: Postsurgical changes as above. No erosions suggestive of osteomyelitis. If clinical concern persists, MRI may be obtained for additional evaluation. Reviewed by: Sherrell Walls MD on 02/06/2020 3:51 PM PDT Approved by: Sherrell Walls MD on 02/06/2020 3:51 PM PDT Station ID: [id number]
== END 2020-02-06 11:02 | disposition home or self-care (01) ==
LOC: DI 11:01
PROVIDERS: ATTEND Nurse Practitioner Adult Health
DX: S91.302A Unspecified open wound, left foot, initial encounter (principal); Z89.429 Acquired absence of other toe(s), unspecified side; Z79.899 Other long term (current) drug therapy
CPT/HCPCS: 36415; 80053; 85025; 85651; 86140

== ENCOUNTER 2020-02-12 11:25 | Outpatient (CLI) | payer MEDICAID ==
[2020-02-12] MEDS ORDERED: IOVERSOL 320 100 ML VIAL IVP ONE ×2 (11:53→14:10)
--- NOTE | 2020-02-12 13:07 | CT Report ---
PROCEDURE: HEAD W/WO INDICATIONS: Lung cancer TECHNIQUE: 4.5 mm thick angled axial sections acquired from the foramen magnum to the vertex before and after th e administration of intravenous contrast. For radiation dose reduction, the following was used: aut omated exposure control, adjustment of mA and/or kV according to patient size. CONTRAST: IV CONTRAST: Optiray 320 ml: 100 PO CONTRAST: Optiray 320 ml100 COMPARISON: 08/03/[address] FINDINGS: Image quality: Images degraded by patient motion artifact. Posterior fossa evaluation is limited by s treak artifact. CSF Spaces: Basal cisterns are patent. No extra-axial fluid collections. Global cerebral volume los s opacification of the ventricles and extra-axial spaces. Brain: Encephalomalacia in the right frontal lobe subjacent to the craniotomy defect, presumably rela april to prior mass resection with adjacent gliosis. This is unchanged from the comparison examination. Focal calcification near in this right frontal lobe region is also unchanged. No evidence of intracr anial mass effect or vasogenic edema. No evidence of acute intracranial hemorrhage. No abnormal intra cranial enhancement. Skull and face: Status post right frontal craniotomy. No suspicious lytic or blastic osseous lesion. Sinuses: Visualized sinuses and mastoids are clear. IMPRESSION: No evidence of intracranial metastatic disease by CT. If there are no contraindications, MRI would provide improved sensitivity in evaluating for intracranial metastasis. Reviewed by: Anibal Osuna MD on 02/12/2020 1:06 PM PDT Approved by: Anibal Osuna MD on 02/12/2020 1:06 PM PDT Station ID: [id number]
== END 2020-02-12 11:26 | disposition home or self-care (01) ==
LOC: DI 11:25
PROVIDERS: ATTEND Internal Medicine
DX: C34.90 Malignant neoplasm of unspecified part of unspecified bronchus or lung (principal)
CPT/HCPCS: 70470; Q9967

== ENCOUNTER 2020-05-26 12:56 | Outpatient (CLI) | payer MEDICAID ==
--- NOTE | 2020-04-21 18:47 | HEMATOLOGY FOLLOW UP ---
Hematology Follow-Up: HEMATOLOGY/ONCOLOGY/PERTINENT HISTORY: 1. Metastatic adenocarcinoma of the lung with metastasis to brain. A. Initially diagnosed 2014, CT chest, right upper lobe lesion 2.8 cm. Stage T1b N0 M0, stage Ia. Status post SBRT to lesion. B. Recurrence 2017 with metastasis to brain, status post craniotomy and gamma knife therapy completed 2017. C. Status post 8 cycles pembrolizumab last dose 04/21/2018 on expectant management. D. Surveillance scans every 3 to 6 months. Difficulty tolerating brain MRI due to back pain, thus CT scan head. 2. Anemia and history of ITP 3. Cardiovascular disease, multiple hospitalizations for CHF. 4. Chronic osteomyelitis right foot ulcer 5. Chronic back and C-spine pain. HISTORY OF CURRENT ILLNESS: Patient returns for ongoing follow-up Since last seen, patient reports no new symptoms aside from worsening blurry vision which she attributes to worsening cataracts. He however otherwise does not note any worsening shortness of breath, no recent falls or infection of his foot, although has ongoing chronic back and cervical spine pain. He has not been able to get his cataracts operated on as he is unable to find an outpatient surgical clinic that will allow him to lie flat under general anesthesia or with preoperative opioids He denies any new focal neurological deficits, ambulating at baseline, no other new symptoms to report since last seen SOCIAL HISTORY: Lives at [facility]. Commutes via paratransit. Review of Systems: All other systems negative. Past Medical/Surgical/Family/Social History: Reviewed from note dated [ 03/19/2019] and remains unchanged today. Physical Examination: General: No acute distress. Vitals per chart. HEENT: No sclera icterus. Oropharynx clear. Neck: No thyromegaly. Lymph nodes: No cervical, supraclavicular, axillary, epitrochlear, or inguinal node adenopathy. Lungs: Clear to auscultation and percussion. Heart: Regular rate and rhythm, no gallops or rubs heard. Breasts: Bilateral not examined. Abdomen: Soft, nontender, normal bowel sounds. No palpable hepatosplenomegaly. No ascites appreciated. Extremities: No cyanosis, clubbing; legs no pitting edema. Skeletal: Nontender to percussion and palpation over spine, ribs, costovertebral angle. Skin: No petechiae, or purpura. No Rash. Neuro: Alert, oriented, appropriate, able to participate in discussion and decisions. Cranial nerves 3, 4, 6, 7, 9, 10, 11, and 12 intact. Gait normal. LAB/PATHOLOGY REVIEW: Available labs reviewed. IMAGING: Available imaging reviewed. ASSESSMENT/PLAN: 1. Stage IV lung cancer with brain metastasis: Remains off treatment with pembrolizumab since 03/2018 with ongoing monitoring. He has no symptoms or signs today concerning for disease progression. He is currently overdue for restaging CT chest abdomen pelvis, although we did will defer repeat MRI brain given ongoing difficulties with obtaining MRIs and no new focal neurological deficits at this time We however did note that if patient were to have new neurological deficits, would need to get MRI brain -Recheck CT chest abdomen pelvis prior to next visit in 4 to 6 weeks -CT head with and without contrast to be done in 4 to 6 weeks 2. Anemia and thrombocytopenia: CBC grossly stable for now, no indication for bone marrow biopsy at this time -Anemia likely secondary to anemia of chronic disease, no new symptoms, would continue to monitor with CBC only -Defer bone marrow biopsy 3. Palliative care: Ongoing follow-up appreciated. 4. Worsening regional failure, with creatinine up to 1.5 on most recent labs- discussed necessity of increasing water intake at this time due to worsening creatinine which may also impede ability to get IV contrast -Patient is encouraged to continue drinking electrolyte laden fluids Follow-up: 4 to [address] scan repeat Clinical Data: Allergies BRONWYN Inhibitors Allergy (Verified 04/21/20 15:15) Emesis clavulanic acid [From Augmentin] Allergy (Verified 04/21/20 15:15) Emesis lisinopril Allergy (Verified 04/21/20 15:15) "THROAT SWELLING" Home Medications Lorazepam [Ativan] 1 mg PO Q8HR PRN 09/23/15 [History Last Taken 08/03/19] Tamsulosin [Flomax] 0.4 mg PO DAILY 06/29/16 [History Last Taken 08/03/19] Lidocaine Ointment 5% [Xylocaine Ointment 5%] 1 applic TOP PRN PRN 08/20/17 [History Last Taken 1 Day Ago ~02/22/19] Gabapentin [Neurontin] 1,600 mg PO BID 09/27/17 [History Last Taken 08/03/19] Albuterol Sulf [Ventolin Hfa Inhaler] 2 puffs INH Q4HR PRN 05/09/18 [History Last Taken 1 Day Ago ~02/22/19] Melatonin 6 mg PO QPM PRN 05/09/18 [History Last Taken 08/02/19] diphenhydrAMINE [Benadryl] 25 mg PO Q6HR PRN 10/04/18 [History Last Taken Unknown] Chlorhexidine Gluconate [Peridex] 15 ml PO DAILY PRN 12/18/18 [History Last Taken 08/03/19] Esomeprazole Magnesium [Nexium] 20 mg PO DAILY 12/18/18 [History Last Taken 08/03/19] Magnesium 250 mg PO BID 12/18/18 [History Last Taken 08/03/19] polyethylene glycoL 3350 [Miralax] 17 gm PO DAILY PRN 12/18/18 [History Last Taken Unknown] Budesonide/Formoterol Fumarate [Symbicort 160-4.5 Mcg Inhaler] 2 puffs IH BID 12/20/18 [History Last Taken 08/03/19] Ipratropium/Albuterol [Duoneb] 3 ml INH Q4HR PRN MDD hold no nebulizzer 02/15/19 [History Last Taken 1 Day Ago ~02/22/19] Loperamide HCl [Loperamide] 2 mg PO QID PRN 02/23/19 [History Last Taken Unknown] Docusate Sodium 200 mg PO DAILY PRN 05/13/19 [History Last Taken 08/03/19] Magnesium Hydroxide [Milk of Magnesia] 30 ml PO DAILY PRN 05/13/19 [History Last Taken 08/03/19] Mecobalamin [B12 Active] 500 mg PO DAILY 08/05/19 [History Last Taken Unknown] Metoprolol Succinate 50 mg PO DAILY 08/05/19 [History Last Taken Unknown] Naloxone HCl [Narcan] 1 spr CHANCE ONCE PRN 08/05/19 [History Last Taken Unknown] Nystatin 5 ml PO DAILY PRN 08/05/19 [History Last Taken Unknown] Nystatin Cream [Mycostatin Cream] 1 applic TOP QPM 08/05/19 [History Last Taken Unknown] Spironolactone [Aldactone] 25 mg PO DAILY 08/05/19 [History Last Taken Unknown] Triamcinolone 0.1% Cream [Kenalog 0.1% Cream] 1 applic TOP BID PRN 10/27/19 [History Last Taken Unknown] Ketotifen Fumarate [Alaway] 1 drops EACHEYE PRN PRN 01/28/20 [History Last Taken Unknown] Lactobacillus Acidophilus [Probiotic Acidophilus] 1 tab ORAL DAILY 01/28/20 [History Last Taken Unknown] oxyCODONE ER [OxyCONTIN] 20 mg PO BID 02/06/20 [History Last Taken Unknown] oxyCODONE [Roxicodone] 5 - 10 mg PO Q4HR MDD 8 tabs 02/06/20 [History Last Taken Unknown]
[2020-05-26] MEDS ORDERED: IOVERSOL 320 50 ML VIAL ONE (13:14)
[2020-05-26] MEDS ORDERED: IOVERSOL 320 100 ML VIAL IVP ONE ×2 (13:14→15:01)
[2020-05-26] MEDS ORDERED: IOVERSOL 320 50 ML VIAL PO ONE (15:01)
--- NOTE | 2020-05-26 15:27 | CT Report ---
PROCEDURE: CHEST W INDICATIONS: LUNG CA CONTRAST: IV CONTRAST: Optiray 320 ml: 100 PO CONTRAST: Optiray 320 ml50 TECHNIQUE: After the administration of intravenous contrast, 5 mm thick sections acquired from the pulmonary api devante to the posterior costophrenic angles. 7 mm thick coronal MIP reformats were acquired. For radia tion dose reduction, the following was used: automated exposure control, adjustment of mA and/or kV according to patient size. COMPARISON: Same day CT abdomen and pelvis. CT chest 10/15/2019. CT chest with contrast 11/12/2014. FINDINGS: Image quality: Excellent. Lungs and pleura: Right upper lobe juxta fissural spiculated opacity measures 3.5 x 2.6 cm, (3/174), previously 4.1 x 3.1 cm, and more remotely 2.6 x 2 cm in 2014 were the lesion had a more rounded and focal appearance. Severe emphysematous change, progressed compared to 2014. Suspect post radiation changes. Trace right pleural effusion with pleural thickening, slightly decreased. No pneumothorax. Central and peripher al airways are patent and normal in caliber. Mediastinum: Left-sided port with the catheter tip at the cavoatrial junction. Heart size is normal. No pericardial effusion. Small right hilar lymph node measuring 2 x 1.5 cm, (2/30), remotely 1.7 x 1.3 cm. Right paratracheal lymph node measuring 1.1 x 1.1 cm, (2/25), previously 1.2 x 1 cm. Thoracic aorta and central pulmonary arteries are normal in size. Esophagus is normal in caliber. No hiatal hernia. Bones and chest wall: Bilateral gynecomastia. No suspicious bony lesions. Prior right-sided rib fra ctures, unchanged. No vertebral body compression fractures. No axillary or supraclavicular adenopath y by size criteria. Thyroid gland is unremarkable.. Abdomen: Please see separately dictated CT abdomen and pelvis. IMPRESSION: 1. Right upper lobe spiculated opacity measuring 3.5 cm is slightly decrease in size compared to 2019. 2. Trace right pleural effusion with pleural thickening is slightly decreased. 3. Small right hilar and mediastinal lymph nodes are unchanged. 4. Severe emphysematous change. Reviewed by: Chito Vidal MD on 05/26/2020 3:26 PM PST Approved by: hCito Vidal MD on 05/26/2020 3:26 PM [facility] Station ID: [id number]
--- NOTE | 2020-05-26 15:33 | CT Report ---
PROCEDURE: Abdomen/Pelvis W INDICATIONS: LUNG CA CONTRAST: IV CONTRAST: Optiray 320 ml: 100 PO CONTRAST: Optiray 320 ml50 TECHNIQUE: After the administration of oral and intravenous contrast, 5 mm thick sections acquired from the diap hragms to the symphysis. 5 mm thick coronal and sagittal reformats were acquired. For radiation dos e reduction, the following was used: automated exposure control, adjustment of mA and/or kV accordin g to patient size. COMPARISON: Same day CT chest. CT abdomen and pelvis 10/15/2019. FINDINGS: Image quality: Excellent. ABDOMEN: Lung bases: Please see separately dictated CT chest. Solid organs: Liver and spleen are normal in size and enhancement. No focal lesion. Small splenule. Gallbladder is unremarkable. Biliary system is non dilated. Pancreas enhances normally. No adrena l nodules. Kidneys demonstrate normal size and enhancement, without hydronephrosis. Peritoneum and bowel: Bowel loops demonstrate normal wall thickness and caliber. Normal appendix. N o free fluid or air. Nodes and vessels: No retroperitoneal or mesenteric adenopathy by size criteria. Aorta and inferior vena cava are normal in size. Miscellaneous: No ventral hernias. PELVIS: Genitourinary: Bladder is within normal limits. Miscellaneous: Large left inguinal hernia containing portions of the sigmoid colon, unchanged. No nick nopathy. Bones: No suspicious bony lesions. Extensive degenerative disc disease in the lumbar spine with mult iple Schmorl's nodes. No vertebral body compression fractures. IMPRESSION: 1. No metastatic disease in the abdomen or pelvis. 2. Stable left internal hernia containing sigmoid colon. No bowel obstructive. Please see separately dictated CT chest. Reviewed by: Chito Vidal MD on 05/26/2020 3:31 PM PST Approved by: Chito Vidal MD on 05/26/2020 3:31 PM PST Station ID: [id number]
--- NOTE | 2020-05-26 15:45 | CT Report ---
PROCEDURE: HEAD W/WO INDICATIONS: SECONDARY MALIGNANT NEOPLASM OF BRAIN TECHNIQUE: 4.5 mm thick angled axial sections acquired from the foramen magnum to the vertex before and after th e administration of intravenous contrast. For radiation dose reduction, the following was used: aut omated exposure control, adjustment of mA and/or kV according to patient size. CONTRAST: IV CONTRAST: Optiray 320 ml: 100 PO CONTRAST: NO PO CONTRAST COMPARISON: FINDINGS: Image quality: Excellent. CSF Spaces: Basal cisterns are patent. No extra-axial fluid collections. Ventricles are normal in size and shape. Brain: Encephalomalacia in the right frontal lobe subjacent to the craniotomy defect, unchanged and p resumably related to prior mass resection with adjacent gliosis. Focal calcification near in this rig ht frontal lobe region is also unchanged. No evidence of intracranial mass effect or vasogenic edema. No evidence of acute intracranial hemorrhage. No abnormal intracranial enhancement. Skull and face: Status post right frontal craniotomy. No suspicious lytic or blastic osseous lesion. Calvarium and visualized facial bones otherwise intact, without suspicious lesions. Sinuses: Visualized sinuses and mastoids are clear. IMPRESSION: No evidence of intracranial metastatic disease by CT. If there are no contraindications, MRI would pr ovide improved sensitivity in evaluating for intracranial metastasis. Reviewed by: Anibal Osuna MD on 05/26/2020 3:44 PM [facility] Approved by: Anibal Osuna MD on 05/26/2020 3:44 PM [facility] Station ID: [id number]
== END 2020-05-26 12:57 | disposition home or self-care (01) ==
LOC: DI 12:56
PROVIDERS: ATTEND Physician Assistant
DX: R91.8 Other nonspecific abnormal finding of lung field (principal); J90 Pleural effusion, not elsewhere classified; J43.9 Emphysema, unspecified; K46.9 Unspecified abdominal hernia without obstruction or gangrene
CPT/HCPCS: 70470; 71260; 74177; Q9967

== ENCOUNTER 2020-06-02 15:02 | Outpatient (CLI) | payer MEDICAID ==
--- NOTE | 2020-06-02 15:58 | Ultrasound Report ---
PROCEDURE: Duplex Ext Veins Left INDICATIONS: LEFT LEG PAIN, LUNG CA TECHNIQUE: Real-time imaging, as well as color and pulse Doppler interrogation, were performed of the lower extr emity deep veins from the inguinal ligament to the popliteal fossa. COMPARISON: None. FINDINGS: The deep veins are normally compressible, and free of intraluminal thrombus. Color and pu lse Doppler demonstrate normal phasic intraluminal flow. There is normal augmentation response to di stal compression maneuver. Nonspecific left inguinal mildly enlarged lymph nodes measuring 14 mm. IMPRESSION: No evidence of deep venous thrombosis. Nonspecific enlarged left inguinal lymph node. Recommend clinical management Reviewed by: Ran Sandhu MD on 06/02/2020 3:57 PM PST Approved by: Ran Sandhu MD on 06/02/2020 3:57 PM PST Station ID: [id number]
--- NOTE | 2020-06-02 16:14 | XRAY Report ---
PROCEDURE: Foot 3 View LT INDICATIONS: LEFT LEG PAIN TECHNIQUE: 3 views of the foot were acquired. COMPARISON: 02/06/2020 FINDINGS: Bones: No fractures or dislocations. No suspicious bony lesions. Amputation of the first-fourth toe s at the first MTP joint level. No focal osseous destruction. Scattered hindfoot and midfoot joint de generation. IMPRESSION: Postsurgical and degenerative changes without definite interval change. No progressive focal osseous destruction to suggest advanced osteomyelitis. If there is persistent high clinical concern, serial s hort interval radiographic follow-up, or contrast-enhanced MRI could be performed. Reviewed by: Ran Sandhu MD on 06/02/2020 4:13 PM PST Approved by: Ran Sandhu MD on 06/02/2020 4:13 PM PST Station ID: [id number]
--- NOTE | 2020-06-02 16:17 | XRAY Report ---
PROCEDURE: Tib/Fib LT INDICATIONS: LEFT FOOT PAIN TECHNIQUE: 2 views of the tibia and fibula were acquired. COMPARISON: None FINDINGS: Bones: No fractures or dislocations. No suspicious bony lesions. Soft tissues: No suspicious soft tissue calcifications or masses. IMPRESSION: No acute fracture. No osseous lesion. If symptoms and/or clinical suspicion for pathology continue, f urther assessment with repeat plain films, or advanced imaging (e.g., CT, MRI, or bone scan) is recom mended for further assessment. Reviewed by: Giovani Mercer MD on 06/02/2020 4:15 PM PST Approved by: Giovani Mercer MD on 06/02/2020 4:15 PM PST Station ID: [id number]
== END 2020-06-02 15:03 | disposition home or self-care (01) ==
LOC: DI 15:02
PROVIDERS: ATTEND Family Medicine
DX: M79.605 Pain in left leg (principal); M19.072 Primary osteoarthritis, left ankle and foot; R59.0 Localized enlarged lymph nodes; Z89.412 Acquired absence of left great toe; Z89.422 Acquired absence of other left toe(s); C34.90 Malignant neoplasm of unspecified part of unspecified bronchus or lung

== ENCOUNTER 2020-06-16 09:30 | Outpatient (CLI) | payer MEDICAID ==
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
== END 2020-06-16 09:31 | disposition home or self-care (01) ==
LOC: PC 09:30
PROVIDERS: ATTEND Nurse Practitioner Adult Health
DX: Z51.5 Encounter for palliative care (principal); G62.9 Polyneuropathy, unspecified; I73.9 Peripheral vascular disease, unspecified; F41.9 Anxiety disorder, unspecified; C34.92 Malignant neoplasm of unspecified part of left bronchus or lung; C34.91 Malignant neoplasm of unspecified part of right bronchus or lung; C79.31 Secondary malignant neoplasm of brain; F17.200 Nicotine dependence, unspecified, uncomplicated; F10.10 Alcohol abuse, uncomplicated

== ENCOUNTER 2020-08-04 10:00 | Outpatient (CLI) | payer MEDICAID ==
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
== END 2020-08-04 10:01 | disposition home or self-care (01) ==
LOC: PC 10:00
PROVIDERS: ATTEND Nurse Practitioner Adult Health
DX: Z51.5 Encounter for palliative care (principal); L89.890 Pressure ulcer of other site, unstageable; S91.104A Unspecified open wound of right lesser toe(s) without damage to nail, initial encounter; X58.XXXA Exposure to other specified factors, initial encounter; G62.9 Polyneuropathy, unspecified; G89.4 Chronic pain syndrome; F41.9 Anxiety disorder, unspecified; B35.1 Tinea unguium; I73.9 Peripheral vascular disease, unspecified; F17.200 Nicotine dependence, unspecified, uncomplicated; F10.10 Alcohol abuse, uncomplicated; Z89.412 Acquired absence of left great toe; Z89.422 Acquired absence of other left toe(s); Z87.39 Personal history of other diseases of the musculoskeletal system and connective tissue; Z85.118 Personal history of other malignant neoplasm of bronchus and lung; Z85.841 Personal history of malignant neoplasm of brain

== ENCOUNTER 2020-09-01 08:00 | Outpatient (CLI) | payer MEDICAID | END 2020-09-01 23:59 | disposition home or self-care (01) | LOC: LAB.R 08:00 | PROVIDERS: ATTEND Family Medicine | DX: R31.9 Hematuria, unspecified (principal); R33.9 Retention of urine, unspecified | CPT/HCPCS: 87086 ==

== ENCOUNTER 2020-09-17 14:11 | Outpatient (CLI) | payer MEDICAID ==
[2020-09-17] MEDS ORDERED: IOVERSOL 320 100 ML VIAL IVP ONE ×2 (14:26→15:43)
[2020-09-17 14:40] LABS: CREATININE 1.5 mg/dL (0.6-1.2)
--- NOTE | 2020-09-17 17:45 | CT Report ---
PROCEDURE: IVP INDICATIONS: HEMATURIA, URINARY RETENTION, L INGUINAL HERNIA, CONTRAST: IV CONTRAST: Optiray 320 ml: 140 PO CONTRAST: *NO PO CONTRAST TECHNIQUE: After the administration of intravenous contrast, 5 mm thick sections acquired from the diaphragms to the symphysis. 5 mm thick coronal and sagittal reformats were acquired. For radiation dose reducti on, the following was used: automated exposure control, adjustment of mA and/or kV according to christopher ent size. COMPARISON: CT abdomen and pelvis 05/26/2020. FINDINGS: Image quality: Excellent. Lung bases: Spiculated masslike opacity at the right lung base measuring 3 x 2.1 cm, (5/1), partially visualized. Previously measured 3.6 x 2.8 cm on 05/26/2020. Fibrosis seen at the lung bases. Trace ri ght pleural effusion. This appears somewhat loculated and similar the prior exam. Heart size is melissa l. Urinary system: Both kidneys are normal in size and enhancement. Right kidney nonobstructing calculu s measuring 0.2 cm, (4/38), unchanged. Contrast-filled renal calyces are normal in morphology. Contr ast filled portions of both ureters are normal in caliber. Bladder wall thickness is normal. Solid organs: Liver and spleen are normal in size and enhancement. Gallbladder is not distended. No calcified gallstones. Focal thickening at the gallbladder fundus which could be seen in adenomyomato sis, (8/32), unchanged. Biliary system is non dilated. Pancreas enhances normally. No adrenal nodu les. Peritoneum and bowel: Bowel loops demonstrate normal wall thickness and caliber. The appendix is not dilated. A few colonic diverticuli. High density material in the cecum may be ingested pill fragment s, food residue, or possibly residual enteric contrast. No free fluid or air. Nodes and vessels: No retroperitoneal or mesenteric adenopathy by size criteria. Aorta and inferior vena cava are normal in size. Circumferential calcified metastatic plaque. Abdominal wall: Small periumbilical hernia. Rectus diastases suspected. Pelvis: No pathologic free pelvic fluid. Large left inguinal hernia containing sigmoid colon, simil ar the prior CT. Small fat-containing right inguinal hernia. No adenopathy. Small groin nodes are unc hanged. Bones: No suspicious bony lesions. Anterior ankylosis of the right SI joint. No vertebral body comp ression fractures. IMPRESSION: 1. No solid renal mass. No adenopathy. 2. There is suboptimal opacification of the ureters which limits evaluation for intraluminal filling defect. Ureters are not dilated. -Repeat CT IVP with more delayed acquisition through the ureters should be considered. 3. No obstructing kidney stone. No hydronephrosis. 4. Nonobstructing right kidney stone measuring 0.2 cm. 5. Spiculated right upper lobe mass is partially visualized and appears decrease in size. Chronic tra ce right pleural effusion. 6. Large left inguinal hernia containing sigmoid colon, unchanged. No bowel obstruction. Reviewed by: Chito Vidal MD on 09/17/2020 5:44 PM PDT Approved by: Chito Vidal MD on 09/17/2020 5:44 PM PDT Station ID: [id number]
== END 2020-09-17 14:12 | disposition home or self-care (01) ==
LOC: LAB 14:11
PROVIDERS: ATTEND Family Medicine
DX: R33.9 Retention of urine, unspecified (principal); R31.9 Hematuria, unspecified; K40.90 Unilateral inguinal hernia, without obstruction or gangrene, not specified as recurrent; N20.0 Calculus of kidney; R91.8 Other nonspecific abnormal finding of lung field; J90 Pleural effusion, not elsewhere classified
CPT/HCPCS: 36415; 74178; 82565; Q9967; 87086

== ENCOUNTER 2020-10-13 13:39 | Outpatient (CLI) | payer MEDICAID ==
[2020-10-13] MEDS ORDERED: IOPAMIDOL-300 50 ML VIAL ONE (13:44)
[2020-10-13] MEDS ORDERED: IOPAMIDOL-300 100 ML VIAL ONE (13:44)
[2020-10-13 13:54] LABS: BASOPHILS % (AUTO) 0.4 %; EOSINOPHILS # (AUTO) 0.2 10^3/uL (0.0-0.7); EOSINOPHILS % (AUTO) 2.1 %; HCT - HEMATOCRIT 35.5 % (42.0-52.0); HGB - HEMOGLOBIN 11.6 g/dL (14.0-18.0); LYMPHOCYTES # (AUTO) 1.1 10^3/uL (1.5-3.5); LYMPHOCYTES % (AUTO) 11.1 %; MEAN CORPUSCULAR HEMOGLOBIN 27.6 pg (27.0-31.0); MEAN CORPUSCULAR HGB CONC 32.7 g/dL (32.0-36.0); MEAN CORPUSCULAR VOLUME 84.3 fL (80.0-94.0); MEAN PLATELET VOLUME 8.7 fL (7.4-11.4); MONOCYTES # (AUTO) 1.1 10^3/uL (0.0-1.0); MONOCYTES % (AUTO) 11.2 %; NEUTROPHILS # (AUTO) 7.6 10^3/uL (1.5-6.6); NEUTROPHILS % (AUTO) 74.8 %; PLT - PLATELET COUNT 162 10^3/uL (130-450); RED BLOOD COUNT 4.21 10^6/uL (4.70-6.10); RED CELL DISTRIBUTION WIDTH 16.2 % (12.0-15.0); WHITE BLOOD COUNT 10.1 x10^3/uL (4.8-10.8)
[2020-10-13 14:06] LABS: ALBUMIN 4.1 g/dL (3.2-5.5); ALBUMIN/GLOBULIN RATIO 1.2 (1.0-2.2); ALKALINE PHOSPHATASE 86 IU/L (42-121); ALT ALANINE AMINOTRANSFERASE < 10 IU/L (10-60); AST ASPARTATE AMINOTRANSFERASE 18 IU/L (10-42); BILIRUBIN,TOTAL 1.5 mg/dL (0.2-1.0); BUN - BLOOD UREA NITROGEN 19 mg/dL (6-20); CALCIUM 8.7 mg/dL (8.5-10.3); CARBON DIOXIDE - CO2 26 mmol/L (21-32); CHLORIDE 87 mmol/L (101-111); CREATININE 1.8 mg/dL (0.6-1.2); GFR - MDRD 39 (>89); GLUCOSE 113 mg/dL (70-100); SODIUM 125 mmol/L (135-145); TOTAL PROTEIN 7.6 g/dL (6.7-8.2)
[2020-10-13] MEDS ORDERED: IOPAMIDOL-300 100 ML VIAL IVP ONE (16:12)
[2020-10-13] MEDS ORDERED: IOPAMIDOL-300 50 ML VIAL PO ONE (16:13)
--- NOTE | 2020-10-13 16:18 | CT Report ---
PROCEDURE: HEAD W INDICATIONS: MALIGNANT NEOPLASM OF LUNG AND BRAIN CONTRAST: IV CONTRAST: Isovue 300 ml: 100 PO CONTRAST: Isovue 300 ml50 TECHNIQUE: 4.5 mm thick angled axial sections acquired from the foramen magnum to the vertex after the administr ation of intravenous contrast. For radiation dose reduction, the following was used: automated expo sure control, adjustment of mA and/or kV according to patient size. COMPARISON: 05/26/2020, 02/12/2020 FINDINGS: Image quality: Excellent. CSF Spaces: Basal cisterns are patent. No extra-axial fluid collections. Ventricles are stable. Brain: No midline shift. No intracranial bleeds or masses. Chronic right frontal lobe calcification is unchanged. Diffuse, scattered nonspecific white matter signal changes, statistically represent ch ronic microvascular ischemic disease although differential includes neurodegenerative, infectious/inf lammatory, demyelinating etiologies among other possibilities. No abnormal intracranial enhancement. Nielson-white interface appears normal. Postsurgical changes related to right frontal craniotomy. Sinuses: Visualized sinuses and mastoids are clear. IMPRESSION: No acute intracranial process. No interval change since 05/26/2020. If there is sufficient clinical farias spicion, further exam diagnostic sensitivity could be obtained with contrast-enhanced brain MRI. Reviewed by: Ran Sandhu MD on 10/13/2020 4:17 PM PDT Approved by: Ran Sandhu MD on 10/13/2020 4:17 PM PDT Station ID: [id number]
--- NOTE | 2020-10-13 16:57 | CT Report ---
PROCEDURE: CHEST W INDICATIONS: MALIGNANT NEOPLASM OF LUNG AND BRAIN CONTRAST: IV CONTRAST: Isovue 300 ml: 100 PO CONTRAST: Isovue 300 ml50 TECHNIQUE: After the administration of intravenous contrast, 5 mm thick sections acquired from the pulmonary api devante to the posterior costophrenic angles. 7 mm thick coronal MIP reformats were acquired. For radia tion dose reduction, the following was used: automated exposure control, adjustment of mA and/or kV according to patient size. COMPARISON: CT chest dated 05/26/2020, 10/15/2019. FINDINGS: CHEST: Lungs: Grossly unchanged appearance of previously seen spiculated mass involving the right upper lobe measuring 3.2 x 2.7 cm, previously 3.5 x 2.6 cm. Upper lobe predominant centrilobular and paraseptal emphysema. There is of posterior subpleural honey combing appearance in both lung bases are unchanged. Trace right pleural effusion. Pleura: No pneumothorax Heart: Heart is enlarged. Moderate coronary artery calcifications Mediastinum: Normal Lymph nodes: Unchanged appearance of right paratracheal lymph node measuring 1.1 x 1.0 cm on image 23 /2. Additional subcentimeter superior mediastinal lymph nodes are also grossly unchanged. Thyroid: Negative Aorta: Normal Pulmonary arteries: Normal Esophagus: Normal Bones: Chronic right rib fracture on image 23 3/. Chronic appearing deformities of the right fourth- sixth ribs. There is thoracic kyphosis. Upper abdomen: Normal IMPRESSION: Overall, grossly unchanged examination since 05/26/2020 as detailed above. Grossly stable appearance o f right upper lobe spiculated mass. Cardiomegaly Moderate coronary artery atherosclerosis Interstitial disease with fibrotic changes and honeycombing appearance, grossly stable. Reviewed by: Ran Sandhu MD on 10/13/2020 4:56 PM PDT Approved by: Ran Sandhu MD on 10/13/2020 4:56 PM PDT Station ID: [id number]
--- NOTE | 2020-10-13 17:35 | CT Report ---
PROCEDURE: Abdomen/Pelvis W INDICATIONS: MALIGNANT NEOPLASM OF LUNG AND BRAIN CONTRAST: IV CONTRAST: Isovue 300 ml: 100 PO CONTRAST: Isovue 300 ml50 TECHNIQUE: After the administration of IV and oral contrast, 5 mm thick sections acquired from the diaphragms to the symphysis. 5 mm thick coronal and sagittal reformats were acquired. For radiation dose reducti on, the following was used: automated exposure control, adjustment of mA and/or kV according to christopher ent size. COMPARISON: CT abdomen pelvis dated 05/26/2020. CT chest dated same day FINDINGS: ABDOMEN: Lung bases: Trace right pleural effusion and interstitial changes, which are better seen on the geovanni rison CT chest dated same day. Please see report. Heart is enlarged Liver: Normal Spleen: Normal Gallbladder: Contracted otherwise unremarkable Bile ducts: Normal Pancreas: Normal Adrenals: Normal Kidneys: Nonobstructive 1 mm right nephrolithiasis. Stomach: Unremarkable Bowel: Normal. Normal appendix Other: No free fluid or air. Abdominal nodes: Normal Aorta: Normal IVC: Normal Ventral wall: No hernias PELVIS: Bladder: Normal Pelvic nodes: Normal Groin: Large fat and bowel containing left inguinal hernia, which extends towards the scrotum, incomp letely visualized. This appears unchanged Bones: No suspicious bone lesion. Spondylosis and facet arthropathy. Numerous lumbar spine Schmorl's nodes are present. IMPRESSION: Grossly stable examination since 05/26/2020. No evidence of progressive or active metastatic disease. Large fat and bowel containing left inguinal hernia as before, incompletely visualized. Additional chronic and incidental findings as above. Reviewed by: Ran Sandhu MD on 10/13/2020 5:34 PM PDT Approved by: Ran Sandhu MD on 10/13/2020 5:34 PM PDT Station ID: [id number]
== END 2020-10-13 13:40 | disposition home or self-care (01) ==
LOC: LAB 13:39
PROVIDERS: ATTEND Internal Medicine
DX: C34.90 Malignant neoplasm of unspecified part of unspecified bronchus or lung (principal); C79.31 Secondary malignant neoplasm of brain; I51.7 Cardiomegaly; I25.10 Atherosclerotic heart disease of native coronary artery without angina pectoris; R91.8 Other nonspecific abnormal finding of lung field; K40.90 Unilateral inguinal hernia, without obstruction or gangrene, not specified as recurrent
CPT/HCPCS: 36415; 70460; 71260; 74177; 80053; 85025; 85651; Q9967

== ENCOUNTER 2020-10-13 13:51 | Outpatient (CLI) | payer MEDICAID ==
--- NOTE | 2020-10-13 14:18 | XRAY Report ---
PROCEDURE: Foot 3 View LT INDICATIONS: L PLANTAR FOOT TECHNIQUE: 3 views of the foot were acquired. COMPARISON: 06/02/2020 FINDINGS: No acute fracture identified. Postsurgical changes related to amputation of the forefoot at the level of the first-fourth MTP joints. There is flexion deformity of the fifth toe as before. Scattered sub chondral sclerosis and spurring. Soft tissue swelling is present at the distal stump margin. IMPRESSION: Postsurgical changes and soft tissue swelling at the distal stump. No focal osseous destruction to farias ggest advanced osteomyelitis. If there is persistent high clinical concern, serial short interval rad iographic follow-up, or contrast-enhanced MRI could be performed. Reviewed by: Ran Sandhu MD on 10/13/2020 2:16 PM PDT Approved by: Ran Sandhu MD on 10/13/2020 2:16 PM PDT Station ID: [id number]
== END 2020-10-13 13:52 | disposition home or self-care (01) ==
LOC: DI 13:51
PROVIDERS: ATTEND Nurse Practitioner
DX: L89.893 Pressure ulcer of other site, stage 3 (principal)

== ENCOUNTER 2020-10-20 14:43 | Inpatient (IN) | payer MEDICAID ==
[2020-10-20] MEDS ORDERED: IBUPROFEN 400 MG TABLET PO PRN (16:03)
[2020-10-20] MEDS ORDERED: ONDANSETRON 4 MG/2 ML VIAL IVP PRN (16:03)
[2020-10-20] MEDS ORDERED: oxyCODONE 5 MG TABLET PO PRN (16:03)
[2020-10-20] MEDS ORDERED: ONDANSETRON ODT 4 MG TABLET TL PRN ×2 (16:03→16:40)
[2020-10-20] MEDS ORDERED: ACETAMINOPHEN 325 MG TABLET PO PRN (16:03)
[2020-10-20] MEDS ORDERED: SODIUM CHLORIDE FLUSH 0.9% 10 ML SYRINGE IVP PRN (16:03)
[2020-10-20] MEDS ORDERED: MORPHINE 2 MG/ML CARPUJECT IVP PRN (16:03)
[2020-10-20] MEDS ORDERED: ALBUTEROL NEB 2.5 MG/3 ML INH PRN (16:32)
[2020-10-20] MEDS ORDERED: LOPERAMIDE 2 MG CAPSULE PO PRN (16:36)
[2020-10-20] MEDS ORDERED: MAGNESIUM HYDROXIDE 2,400 MG/30 ML UDC PO PRN (16:39)
[2020-10-20] MEDS: LORazepam 1 MG TABLET PO PRN (17:00)
[2020-10-20] MEDS ORDERED: SODIUM CHLORIDE 0.9% 1,000 ML IV SCH (17:00)
[2020-10-20] MEDS: oxyCODONE 5 MG TABLET PO PRN (17:03)
--- NOTE | 2020-10-20 17:04 | PHARMACY PROGRESS NOTE ---
- Best Possible Medication History Admit Date and Time: 10/20/20 1546 Processed by: Pharmacy Medication History completed: Yes Patient Interview: Completed Secondary Source(s): Written medication list (PATIENT INTERVIEWED BY PHARMACY. PATIENT PROVIDED MEDICATION LIST), Physician records, Pharmacy records, Insurance records As the person ultimately responsible for medication therapy, providers are able to order a medication from an existing home medication list in [facility] via the "Reconcile Routine" prior to Confirmation of that medication by support analyst. Such practice is discouraged except when the physician, in their clinical judgment, deems that a medical need exists for a medication without regard to previous use.
[2020-10-20 17:42] LABS: BASOPHILS % (AUTO) 0.5 %; EOSINOPHILS # (AUTO) 0.4 10^3/uL (0.0-0.7); EOSINOPHILS % (AUTO) 4.8 %; HCT - HEMATOCRIT 35.1 % (42.0-52.0); HGB - HEMOGLOBIN 11.3 g/dL (14.0-18.0); LYMPHOCYTES % (AUTO) 12.5 %; MEAN CORPUSCULAR HEMOGLOBIN 26.8 pg (27.0-31.0); MEAN CORPUSCULAR HGB CONC 32.2 g/dL (32.0-36.0); MEAN CORPUSCULAR VOLUME 83.4 fL (80.0-94.0); MEAN PLATELET VOLUME 8.8 fL (7.4-11.4); MONOCYTES # (AUTO) 0.8 10^3/uL (0.0-1.0); MONOCYTES % (AUTO) 9.8 %; NEUTROPHILS # (AUTO) 5.7 10^3/uL (1.5-6.6); NEUTROPHILS % (AUTO) 72.1 %; PLT - PLATELET COUNT 215 10^3/uL (130-450); RED BLOOD COUNT 4.21 10^6/uL (4.70-6.10); RED CELL DISTRIBUTION WIDTH 16.5 % (12.0-15.0); WHITE BLOOD COUNT 7.9 x10^3/uL (4.8-10.8)
[2020-10-20 18:06] LABS: ALBUMIN 3.9 g/dL (3.2-5.5); ALBUMIN/GLOBULIN RATIO 1.1 (1.0-2.2); ALKALINE PHOSPHATASE 66 IU/L (42-121); ALT ALANINE AMINOTRANSFERASE < 10 IU/L (10-60); AST ASPARTATE AMINOTRANSFERASE 14 IU/L (10-42); BILIRUBIN,TOTAL 0.7 mg/dL (0.2-1.0); BUN - BLOOD UREA NITROGEN 19 mg/dL (6-20); CALCIUM 8.7 mg/dL (8.5-10.3); CARBON DIOXIDE - CO2 25 mmol/L (21-32); CHLORIDE 97 mmol/L (101-111); CREATININE 1.6 mg/dL (0.6-1.2); CRP - C-REACTIVE PROTEIN 6.3 mg/dL (0-1.0); GFR - MDRD 45 (>89); GLUCOSE 92 mg/dL (70-100); POTASSIUM 4.2 mmol/L (3.5-5.0); SODIUM 132 mmol/L (135-145); TOTAL PROTEIN 7.4 g/dL (6.7-8.2)
--- NOTE | 2020-10-20 18:16 | XRAY Report ---
PROCEDURE: Foot 3 View LT INDICATIONS: Rule out osteomyelitis TECHNIQUE: 3 views of the foot were acquired. COMPARISON: 10/13/2020 radiographs FINDINGS: No focal destructive osseous lesion identified. Post surgical changes as on prior studies. IMPRESSION: No plain radiographic evidence of osteomyelitis. MRI with IV contrast recommended if there is continu ed clinical concern. Reviewed by: Anibal Osuna MD on 10/20/2020 6:15 PM PDT Approved by: Anibal Osuna MD on 10/20/2020 6:15 PM PDT Station ID: [id number]
--- NOTE | 2020-10-20 18:32 | HISTORY & PHYSICAL EXAMINATION ---
Chief Complaint - Chief Complaint Chief Complaint: left foot pain History of Present Illness - Admitted From Admitted From:: Medical floor - History Obtained From Records Reviewed: [facility] History obtained from: pt Exam Limitations: no - History of Present Illness HPI Comment/Other: This is a 60-year-old male with a complex medical history significant for metastatic adenocarcinoma of the lung with mets to the brain, hypertension, coronary disease, peripheral vascular disease, COPD, seizure disorder, GERD, diverticulits, chronic constipation, BPH, Opiate dependent on oxycodone, ischemic peripheral disease nonhealing ulcer to foot, anemia, chronic current every day smoker/tobacco dependence, medical noncompliance, alcohol dependence, CHF, Chronic back and C-spine pain, who present to [facility] for wound care, then Wound care provider consulted medical team for direct admission for concerning complication for osteomyelitis and cellulitis. Pt report his wound in left foot has been for about 4 yrs. He report pain at his left foot. He denies fever, chill. pt was seen by in [facility] today. Pt had wound hygiene with debridement, wound culture, new hydrophilic dressing. It was concerning the wound probes to bone and suspicious for osteomyelitis. Xray of left foot reveals on plain radiographic evidence of osteomyelitis. MRI is planning for pt. In the examination, pt's left foot first 4 toes were amputated. The wound located at the lateral inferior of the fifth toe with new dressed coverage done by [facility]. The foot is mild swelling with warmth. Laboratory tests that show sodium 132, creatinine is 1.6 as baseline, CRP 6.3, ESR 46, WBC 7.9. Patient is afebrile, patient is hemodynamically stable without tachypnea, patient had 94% sats on room air. Patient also report he still smoke half a pack per day "I just cannot get away this staff." patient report he still drinks alcohol daily but he denies has alcohol withdrawal. Given above medical condition, medical team was called for admission. Discussed the care goal with the patient, patient requests full code History - Past Medical History Cardiovascular: reports: Congestive heart failure, Hypertension, Coronary artery disease Respiratory: reports: COPD, Shortness of breath, Other Neuro: reports: Dementia, Headaches, Peripheral neuropathy, Seizure disorder, Other Endocrine/Autoimmune: reports: None GI: reports: GERD, Chronic constipation, Diverticulitis HAND III CUTTER: reports: None : reports: Benign prostate hypertrophy, Incontinence, Nocturia, Frequency HEENT: reports: Chronic vision loss Psych: reports: Anxiety Musculoskeletal: reports: Chronic back pain, Other Derm: reports: Other MRSA Hx?: Yes - Past Surgical History Ortho: reports: Amputation Cardiovascular: reports: Cardiac catheterization Neuro: reports: Craniotomy, Gamma knife - Family & Social History Family History: Mother: , Cancer, Diabetes, Type 2, Father: , Cancer, Sister: Alive and Well, Cancer, Other family: Alive and Well Family History Comment/Other: Patient report his father from the lung cancer and heavy smoker at age 68. Patient report his mother at age 59 From lung cancer and heavy smoker Living Situation: With caregiver(s) Social History Notes: He currently lives at [facility] assisted living [facility]. In the past The patient lived in [place], [place] with a roommate whom he has recently met. The patient was born in [place] at [facility]. His father was in the but the patient himself was not in the . The patient has 3 children and is . He has a sister who lives on [facility]. The patient continues to smoke almost 1 pack/day and has been doing so for about 40 years. He also drinks 324 ounce beers and 3 shots of vodka daily. He denies any illicit drug use. - Substance History Use: Uses substance without health or social issues: Tobacco (currently 0.5 ppd), Alcohol (3+ drinks/day) - POLST Patient has POLST: No POLST Status: Full Code Meds/Allgy - Home Medications Home Medications: Ambulatory Orders Medication Instructions Recorded Confirmed Lorazepam [Ativan] 1 mg PO Q8HR PRN 09/23/15 10/20/20 Tamsulosin [Flomax] 0.4 mg PO DAILY 06/29/16 10/20/20 Lidocaine Ointment 5% [Xylocaine 1 applic TOP PRN PRN 08/20/17 10/20/20 Ointment 5%] Gabapentin [Neurontin] 1,600 mg PO BID 09/27/17 10/20/20 Levetiracetam [Keppra] 500 mg PO BID #30 tablet 11/23/17 10/20/20 Ondansetron Odt [Zofran Odt] 4 mg TL Q6H PRN #15 tablet 03/19/18 10/20/20 Albuterol Sulf [Ventolin Hfa 2 puffs INH Q4HR PRN 05/09/18 10/20/20 Inhaler] Melatonin 6 mg PO QPM PRN 05/09/18 10/20/20 Chlorhexidine Gluconate [Peridex] 15 ml PO DAILY PRN 12/18/18 10/20/20 Esomeprazole Magnesium [Nexium] 20 mg PO DAILY 12/18/18 10/20/20 Magnesium 500 mg PO BID 12/18/18 10/20/20 polyethylene glycoL 3350 [Miralax] 17 gm PO DAILY PRN 12/18/18 10/20/20 Budesonide/Formoterol Fumarate 2 puffs IH BID 12/20/18 10/20/20 [Symbicort 160-4.5 Mcg Inhaler] Montelukast [Singulair] 10 mg PO QPM #30 tablet 12/28/18 10/20/20 Ipratropium/Albuterol [Duoneb] 3 ml INH Q4HR PRN MDD hold no 02/15/19 10/20/20 nebulizzer Loperamide HCl [Loperamide] 2 mg PO QID PRN 02/23/19 10/20/20 Docusate Sodium 200 mg PO DAILY PRN 05/13/19 10/20/20 Metoprolol Succinate 50 mg PO DAILY 08/05/19 10/20/20 Naloxone HCl [Narcan] 1 spr CHANCE ONCE PRN 08/05/19 10/20/20 Nystatin 5 ml PO DAILY PRN 08/05/19 10/20/20 Nystatin Cream [Mycostatin Cream] 1 applic TOP QPM 08/05/19 10/20/20 Spironolactone [Aldactone] 25 mg PO DAILY 08/05/19 10/20/20 Triamcinolone 0.1% Cream [Kenalog 1 applic TOP BID PRN 10/27/19 10/20/20 0.1% Cream] Lactobacillus Acidophilus 1 tab ORAL DAILY 01/28/20 10/20/20 [Probiotic Acidophilus] oxyCODONE [Roxicodone] 5 - 10 mg PO Q4HR MDD 8 tabs 02/06/20 10/20/20 Loratadine [Claritin] 10 mg PO DAILY PRN 06/16/20 10/20/20 Cyanocobalamin (Vitamin B-12) 1,000 mcg PO DAILY 10/20/20 10/20/20 [Vitamin B-12] Finasteride [Proscar] 5 mg PO DAILY 10/20/20 10/20/20 Ketotifen Fumarate [Alaway] 1 drops EACHEYE PRN PRN 10/20/20 10/20/20 Torsemide 20 mg PO DAILY 10/20/20 10/20/20 diphenhydrAMINE [Benadryl] 25 mg PO PRN PRN 10/20/20 10/20/20 - Allergies Allergies/Adverse Reactions: Allergies Allergy/AdvReac Type Severity Reaction Status Date / Time BRONWYN Inhibitors Allergy Emesis Verified 10/20/20 15:32 clavulanic acid Allergy Emesis Verified 10/20/20 15:32 [From Augmentin] lisinopril Allergy "THROAT Verified 10/20/20 15:32 SWELLING" Review of Systems - Constitutional Constitutional: denies: Fever, Chills, Poor appetite, Diaphoresis - Eyes Eyes: denies: Pain, Blurred vision, Field loss, Vision loss - Ears, Nose & Throat Ears, Nose & Throat: denies: Ear pain, Vertigo, Nosebleeds, Bleeding gums - Cardiovascular Cariovascular: denies: Palpitations, Chest pain, Syncope, Exertional dyspnea, Decr. exercise tolerance - Respiratory Respiratory: denies: Wheezing, Hemoptysis, SOB at rest - Gastrointestinal Gastrointestinal: denies: Abdominal distention, Diarrhea, Black stools, Bloody stools, Nausea, Vomiting - Genitourinary Genitourinary: denies: Frequency, Urgency, Incontinence - Musculoskeletal Musculoskeletal: reports: Back pain. denies: Muscle aches, Limited range of motion - Integumentary Integumentary: denies: Pruritis, Lumps - Neurological Neurological: denies: Focal weakness, Headache, Dizziness, Numbness, Seizures, Incoordination, Slurred speech - Psychiatric Psychiatric: denies: Depression, Anxiety - Endocrine Endocrine: denies: Polyuria - Hematologic/Lymphatic Hematologic/Lymphatic: denies: Bruising, Blood clots Prior Level of Functionality: Patient is living at [facility] Exam - Vital Signs Vital Signs: Vital Signs x48h Temp Pulse Resp BP Pulse Ox 10/20/20 16:04 36.5 C 103 H 16 120/78 94 - Physical Exam General Appearance: positive: No acute distress, Alert. negative: Lethargic Eyes Bilateral: positive: Normal inspection, PERRL, No lid inflammation ENT: positive: ENT inspection nml, No signs of dehydration. negative: Purulent nasal drainage Neck: positive: Nml inspection, Trachea midline. negative: Thyromegaly, Tracheal deviation Respiratory: positive: Chest non-tender, No respiratory distress, Other ( Diminished significantly bilaterally lung sounds). negative: Wheezes Cardiovascular: positive: Regular rate & rhythm, No murmur. negative: Tachycardia, Bradycardia, Systolic murmur, Diastolic murmur Peripheral Pulses: positive: 2+ Abdomen: positive: Non-tender, Nml bowel sounds, No distention. negative: Tenderness Back: positive: Nml inspection Skin: positive: Warm, Dry, Other (The foot is mild swelling with warmth. The wound is covered by the dress on today by [facility]). negative: Cyanosis Extremities: positive: Non-tender. negative: Calf tenderness Neurologic/Psychiatric: positive: Oriented x3, Motor nml, Sensation nml. negative: Weakness, Sensory loss, Facial droop, Slurred/abnml speech, Depressed mood/affect Conclusion/Plan - Problem List (1) Ulcer of left foot Conclusion/Plan: Xray of left foot reveals on plain radiographic evidence of osteomyelitis. will order MRI, and consult with orthopedics if it is osteomyelitis. We will treat the cellulitis around the wound with antibiotics now according to previous wound culture. New wound culture was done on [facility] yesterday, we will followup. and we will order blood culture as well. (2) Metastatic primary lung cancer Conclusion/Plan: advise pt continue followup with his oncologist, pt agree (3) Brain malignancy Conclusion/Plan: pt is alert and oriented today, he denies headache. he denies nausea or vomiting. pt had treatment for his brain malignancy, advise pt followup with his oncologist as well. (4) Congestive heart failure Conclusion/Plan: ECHO in 2019 show pt had elevated RVSP, pulmonary Hypotension, and diastolic heart failure. pt was admitted a few times of heart failure. pt has no acute cardiopulmonary distress at this moment. hold IVF, resume pt's home meds, vital monitor. Qualifiers: Heart failure type: combined systolic and diastolic (5) COPD (chronic obstructive pulmonary disease) Conclusion/Plan: pt has hx of COPD, and still cigarette smoking. pt has no acute respiratory distress now. resume home meds, and breath treatment as needed, and supplement of O2 as needed. (6) Current smoker Conclusion/Plan: it seems pt can not get away his smoking as he state to me, but still advise he quit, pt has hx of lung cancer, COPD, and PVD and lower extremities ulcer and infection. (7) Hx of seizure disorder Conclusion/Plan: pt has no seizure at hospital at this time now. resume home meds, seizure precaution (8) Chronic pain Conclusion/Plan: resume pt's home pain meds, continue to do pain assessment. (9) History of nonadherence to medical treatment Conclusion/Plan: pt has hx of medical non-compliance, discussed with pt, advise pt do medical compliance. - Lab Results Fish Bones: 10/21/20 05:05 10/21/20 05:05 Core Measures - Anticipated LOS I expect patient to be DC'd or transferred within 96 hours.: Yes - DVT/VTE - Prophylaxis VTE/DVT Device ordered at admit?: Yes VTE/DVT Prophylaxis med ordered at admit?: Yes
[2020-10-20] MEDS: IPRATROPIUM/ALBUTEROL 3 ML NEB INH PRN (19:30)
[2020-10-20] MEDS: BUDESONIDE 0.5 MG/2 ML NEB INH SCH (19:30)
[2020-10-20] MEDS: ceFAZolin 1 GM in SODIUM CHLORIDE 0.9% MINIBAG 100 ML IV SCH (20:05)
[2020-10-20] MEDS: SODIUM CHLORIDE FLUSH 0.9% 10 ML SYRINGE IVP SCH (20:05)
[2020-10-20] MEDS: SACCHAROMYCES BOULARDII 250 MG CAPSULE PO SCH (20:05)
[2020-10-20] MEDS: LORazepam 1 MG TABLET PO SCH (21:22)
[2020-10-20] MEDS: GABAPENTIN 400 MG CAPSULE PO SCH (21:22)
[2020-10-20] MEDS: levETIRAcetam 250 MG TABLET PO SCH (21:22)
[2020-10-20] MEDS: oxyCODONE ER 10 MG TABLET PO SCH (21:22)
[2020-10-20] MEDS: MONTELUKAST 10 MG TABLET PO SCH (21:22)
[2020-10-20] MEDS: NYSTATIN CREAM 15 GM TUBE TOP SCH (21:23)
[2020-10-21] MEDS: oxyCODONE 5 MG TABLET PO PRN ×3 (00:21→16:42)
[2020-10-21] MEDS: SODIUM CHLORIDE FLUSH 0.9% 10 ML SYRINGE IVP SCH ×3 (00:35→15:47)
[2020-10-21] MEDS: ceFAZolin 1 GM in SODIUM CHLORIDE 0.9% MINIBAG 100 ML IV SCH ×3 (02:02→19:47)
[2020-10-21 05:30] LABS: BASOPHILS % (AUTO) 0.7 %; EOSINOPHILS # (AUTO) 0.4 10^3/uL (0.0-0.7); EOSINOPHILS % (AUTO) 6.3 %; HGB - HEMOGLOBIN 11.1 g/dL (14.0-18.0); LYMPHOCYTES # (AUTO) 1.2 10^3/uL (1.5-3.5); LYMPHOCYTES % (AUTO) 20.5 %; MEAN CORPUSCULAR HEMOGLOBIN 26.9 pg (27.0-31.0); MEAN CORPUSCULAR HGB CONC 32.6 g/dL (32.0-36.0); MEAN CORPUSCULAR VOLUME 82.3 fL (80.0-94.0); MEAN PLATELET VOLUME 8.7 fL (7.4-11.4); MONOCYTES # (AUTO) 0.7 10^3/uL (0.0-1.0); MONOCYTES % (AUTO) 11.2 %; NEUTROPHILS # (AUTO) 3.7 10^3/uL (1.5-6.6); PLT - PLATELET COUNT 205 10^3/uL (130-450); RED BLOOD COUNT 4.13 10^6/uL (4.70-6.10); RED CELL DISTRIBUTION WIDTH 16.4 % (12.0-15.0); WHITE BLOOD COUNT 6.1 x10^3/uL (4.8-10.8)
[2020-10-21 05:48] LABS: CALCIUM 8.3 mg/dL (8.5-10.3); CREATININE 1.5 mg/dL (0.6-1.2); CRP - C-REACTIVE PROTEIN 8.3 mg/dL (0-1.0); MAGNESIUM 2.4 mg/dL (1.7-2.8); POTASSIUM 4.2 mmol/L (3.5-5.0)
[2020-10-21] MEDS: PANTOPRAZOLE 40 MG TABLET PO SCH (06:24)
[2020-10-21] MEDS: BUDESONIDE 0.5 MG/2 ML NEB INH SCH ×2 (07:52→19:30)
[2020-10-21] MEDS ORDERED: GADOBUTROL 15 MMOL/15 ML VIAL ONE (08:36)
[2020-10-21] MEDS ORDERED: METOPROLOL SUCCINATE 50 MG TABLET PO SCH (09:00)
[2020-10-21] MEDS: CHLORHEXIDINE GLUCONATE 15 ML UDC PO PRN (09:35)
[2020-10-21] MEDS: METOPROLOL SUCCINATE 50 MG TABLET PO SCH (10:14)
[2020-10-21] MEDS: MULTIVITAMIN W/MINERALS TABLET PO SCH (10:14)
[2020-10-21] MEDS: SACCHAROMYCES BOULARDII 250 MG CAPSULE PO SCH ×2 (10:14→19:47)
[2020-10-21] MEDS: LORazepam 1 MG TABLET PO SCH ×2 (10:14→20:57)
[2020-10-21] MEDS: MAGNESIUM OXIDE 400 MG TABLET PO SCH (10:15)
[2020-10-21] MEDS: TORSEMIDE 20 MG TABLET PO SCH (10:15)
[2020-10-21] MEDS: oxyCODONE ER 10 MG TABLET PO SCH ×2 (10:15→20:57)
[2020-10-21] MEDS: FINASTERIDE 5 MG TABLET PO SCH (10:15)
[2020-10-21] MEDS: GABAPENTIN 400 MG CAPSULE PO SCH ×2 (10:15→20:56)
[2020-10-21] MEDS: levETIRAcetam 250 MG TABLET PO SCH ×2 (10:15→20:56)
[2020-10-21] MEDS: LORATADINE 10 MG TABLET PO SCH (10:15)
[2020-10-21] MEDS: SPIRONOLACTONE 25 MG TABLET PO SCH (10:16)
[2020-10-21] MEDS: TAMSULOSIN 0.4 MG CAPSULE PO SCH (10:16)
[2020-10-21] MEDS: DOCUSATE SODIUM 100 MG CAPSULE PO SCH (10:16)
[2020-10-21] MEDS ORDERED: LORazepam 2 MG/ML VIAL IVP PRN (10:37)
[2020-10-21] MEDS: ENOXAPARIN 40 MG/0.4 ML SYRINGE SUBQ SCH (11:42)
[2020-10-21] MEDS: NYSTATIN CREAM 15 GM TUBE TOP SCH ×2 (11:42→20:57)
[2020-10-21] MEDS: LIDOCAINE OINTMENT 5% 35.44 GM TUBE TOP PRN ×2 (11:49→16:43)
[2020-10-21] MEDS: PRENATAL VITAMIN TABLET PO SCH (11:49)
[2020-10-21] MEDS: THIAMINE 100 MG TABLET PO SCH (11:49)
[2020-10-21] MEDS ORDERED: HYDROmorphone 1 MG/ML CARPUJECT IVP SCH (12:00)
--- NOTE | 2020-10-21 14:26 | MRI Report ---
PROCEDURE: Foot LT W/WO INDICATIONS: ulcer to bone w hx of osteo CONTRAST: IV CONTRAST: Gadavist ml: 11 TECHNIQUE: Noncontrast sagittal T1 spin echo and T2 fast spin echo with fat saturation, long-axis T1 spin echo a nd T2 fast spin echo with fat saturation; short-axis T1 spin echo, proton density fast spin echo, and T2 fast spin echo with fat saturation through the forefoot. Post-contrast short axis, long axis, an d sagittal T1 spin echo with fat saturation through the forefoot. COMPARISON: None. FINDINGS: Motion degraded examination. Postsurgical changes related to a rotation of the forefoot at the level of the MTP joints, with sparing of the fifth toe. There is skin thickening and soft tissue swelling o verlying the fourth metatarsal head. There is marked marrow signal change involving the fourth metata rsal head with complete replacement of the normal marrow fat signal intensity, T2 hyperintense appear ance and associated enhancement. This constellation findings highly suspicious for severe osteomyelit is. Remaining marrow signal intensity is grossly unremarkable except for scattered degenerative changes. There is diffuse atrophy of the muscles. No definite discrete rim-enhancing abscess identified. IMPRESSION: Marked marrow signal change involving the fourth metatarsal head in keeping with osteomyelitis. Overl aramis cellulitis and skin thickening. Postsurgical and degenerative changes as above. Reviewed by: Ran Sandhu MD on 10/21/2020 2:24 PM PDT Approved by: Ran Sandhu MD on 10/21/2020 2:24 PM PDT Station ID: [id number]
--- NOTE | 2020-10-21 14:53 | PROVIDER PROGRESS NOTE ---
Assessment/Plan - Problem List (1) Osteomyelitis Assessment/Plan: 10/21 MRI left foot show constellation findings highly suspicious for severe osteomyelitis. wound culture show positive for staph aureus. pt has twice hx of MRSA, we will have vancomycin. consult with Orthopedics, continue pain control and wound care. Xray of left foot reveals on plain radiographic evidence of osteomyelitis. will order MRI, and consult with orthopedics if it is osteomyelitis. We will treat the cellulitis around the wound with antibiotics now according to previous wound culture. New wound culture was done on [facility] clinic yesterday, we will followup. and we will order blood culture as well. (2)cellulitis pt has cellulitis around left wound site, as MRI show. continue antibiotics, lab monitor (3) Metastatic primary lung cancer Conclusion/Plan: advise pt continue followup with his oncologist, pt agree (4) Brain malignancy Conclusion/Plan: pt is alert and oriented today, he denies headache. he denies nausea or vomiting. pt had treatment for his brain malignancy, advise pt followup with his oncologist as well. (5) Congestive heart failure Conclusion/Plan: ECHO in 2019 show pt had elevated RVSP, pulmonary Hypotension, and diastolic heart failure. pt was admitted a few times of heart failure. pt has no acute cardiopulmonary distress at this moment. hold IVF, resume pt's home meds, vital monitor. Qualifiers: Heart failure type: combined systolic and diastolic (6) COPD (chronic obstructive pulmonary disease) Conclusion/Plan: pt has hx of COPD, and still cigarette smoking. pt has no acute respiratory distress now. resume home meds, and breath treatment as needed, and supplement of O2 as needed. (7) Current smoker Conclusion/Plan: it seems pt can not get away his smoking as he state to me, but still advise he quit, pt has hx of lung cancer, COPD, and PVD and lower extremities ulcer and infection. (8) Hx of seizure disorder Conclusion/Plan: pt has no seizure at hospital at this time now. resume home meds, seizure precaution (9) Chronic pain Conclusion/Plan: resume pt's home pain meds, continue to do pain assessment. (10) History of nonadherence to medical treatment Conclusion/Plan: pt has hx of medical non-compliance, discussed with pt, advise pt do medical compliance. (11)alcohol abuse pt has hx of alcohol abuse, he drink alcohol daily. But he denies to have alcohol withdrawal. order , B1 and CIWA protocol for pt now. (5) Congestive heart failure Qualifiers: Heart failure type: combined systolic and diastolic - Current Meds Current Meds: Current Medications Generic Name Dose Route Start Last Admin Trade Name Freq PRN Reason Stop Dose Admin Albuterol 2.5 mg 10/20/20 16:32 10/21/20 00:20 Albuterol Neb 2.5 Mg/3 Ml INH 2.5 mg RTQ4H PRN Administration Wheezing Albuterol/Ipratropium 3 ml 10/20/20 16:35 10/20/20 19:30 Ipratropium/Albuterol 3 Ml Neb INH 3 ml RTQID PRN Administration Wheezing Budesonide 0.5 mg 10/20/20 19:00 10/21/20 07:52 Budesonide 0.5 Mg/2 Ml Neb INH 0.5 mg RTBID GIOVANA Administration Chlorhexidine Gluconate 15 ml 10/20/20 21:00 10/21/20 09:35 Chlorhexidine Gluconate 15 Ml Udc PO 15 ml BID PRN Administration THRUSH Docusate Sodium 100 mg 10/21/20 09:00 10/21/20 10:16 Docusate Sodium 100 Mg Capsule PO 100 mg DAILY GIOVANA Administration Enoxaparin Sodium 40 mg 10/21/20 09:00 10/21/20 11:42 Enoxaparin 40 Mg/0.4 Ml Syringe SUBQ Not Given DAILY GIOVANA Finasteride 5 mg 10/21/20 09:00 10/21/20 10:15 Finasteride 5 Mg Tablet PO 5 mg DAILY [facility] Administration Gabapentin 1,600 mg 10/20/20 21:00 10/21/20 10:15 Gabapentin 400 Mg Capsule PO 1,600 mg BID GI[facility] Administration Cefazolin Sodium 1 gm/ Sodium 100 mls @ 200 mls/hr 10/20/20 18:00 10/21/20 11:10 Chloride IV Infused Q8H [facility] Infusion Levetiracetam 500 mg 10/20/20 21:00 10/21/20 10:15 Levetiracetam 250 Mg Tablet PO 500 mg BID GIOVANA Administration Lidocaine 1 applic 10/21/20 01:16 10/21/20 11:49 Lidocaine Ointment 5% 35.44 Gm Tube TOP 1 applic BID PRN Administration PAIN Loratadine 10 mg 10/21/20 09:00 10/21/20 10:15 Loratadine 10 Mg Tablet PO 10 mg DAILY GI[facility] Administration Lorazepam 1 mg 10/20/20 16:37 10/20/20 17:00 Lorazepam 1 Mg Tablet PO 1 mg DAILY PRN Administration Anxiety Lorazepam 1 mg 10/20/20 21:00 10/21/20 10:14 Lorazepam 1 Mg Tablet PO 1 mg BID GI[facility] Administration Magnesium Oxide 400 mg 10/21/20 08:00 10/21/20 10:15 Magnesium Oxide 400 Mg Tablet PO 400 mg DAILYWM [facility] Administration Metoprolol Succinate 50 mg 10/21/20 09:00 10/21/20 10:14 Metoprolol Succinate 50 Mg Tablet PO 50 mg DAILY [facility] Administration Montelukast Sodium 10 mg 10/20/20 21:00 10/20/20 21:22 Montelukast 10 Mg Tablet PO 10 mg QPM [facility] Administration Multivitamins/Minerals 1 tab 10/21/20 08:00 10/21/20 10:14 Multivitamin W/Minerals Tablet PO 1 tab DAILYWM [facility] Administration Nystatin 1 applic 10/20/20 21:00 10/21/20 11:42 Nystatin Cream 15 Gm Tube TOP Not Given BID GI[facility]NA Ondansetron HCl 4 mg 10/20/20 16:03 10/21/20 09:37 Ondansetron Odt 4 Mg Tablet TL 4 mg Q6HR PRN Administration Nausea / Vomiting Oxycodone HCl 20 mg 10/20/20 21:00 10/21/20 10:15 Oxycodone Er 10 Mg Tablet PO 20 mg BID [facility] Administration Oxycodone HCl 10 - 20 mg 10/20/20 16:55 10/21/20 06:24 Oxycodone 5 Mg Tablet PO 20 mg Q4H PRN Administration BREAKTHROUGH PAIN Pantoprazole Sodium 40 mg 10/21/20 07:00 10/21/20 06:24 Pantoprazole 40 Mg Tablet PO 40 mg QDAC [facility] Administration Multivit/Folic Acid/Iron 1 tab 10/21/20 11:00 10/21/20 11:49 Vitamin Tablet PO 1 tab DAILYWM [facility] Administration Saccharomyces Boulardii 250 mg 10/20/20 17:00 10/21/20 10:14 Saccharomyces Boulardii 250 Mg Capsule PO 250 mg BIDWM [facility] Administration Sodium Chloride 10 ml 10/20/20 17:00 10/21/20 10:16 Sodium Chloride Flush 0.9% 10 Ml Syringe IVP 10 ml 0100,0900,1700 [facility] Administration Spironolactone 25 mg 10/21/20 09:00 10/21/20 10:16 Spironolactone 25 Mg Tablet PO 25 mg DAILY [facility] Administration Tamsulosin HCl 0.4 mg 10/21/20 09:00 10/21/20 10:16 Tamsulosin 0.4 Mg Capsule PO 0.4 mg DAILY [facility] Administration Thiamine HCl 100 mg 10/21/20 11:00 10/21/20 11:49 Thiamine 100 Mg Tablet PO 100 mg DAILY [facility] Administration Torsemide 20 mg 10/21/20 09:00 10/21/20 10:15 Torsemide 20 Mg Tablet PO 20 mg DAILY GI[facility]NA Administration - Lab Result Fish Bone Diagrams: 10/21/20 05:05 10/21/20 05:05 - Additional Planning My Orders: My Active Orders 10/20/20 17:31 LEVETIRACETAM (KEPPRA) LEVEL [REFLAB] Urgent 10/21/20 08:49 Out of bed 3+ hours today [RC] TID 10/21/20 09:00 Metoprolol Succinate [Toprol Xl] 50 mg PO DAILY 10/21/20 09:52 Blood Culture [CULTURE, BLOOD #1] [RM] Urgent 10/21/20 10:20 Blood Culture [CULTURE, BLOOD #2] [RM] Urgent 10/21/20 10:37 LORazepam INJ [Ativan Inj (Vial)] 1 mg IVP Q30M PRN 10/21/20 11:00 Vitamin [Trinatal Rx 1] 1 tab PO DAILYWM Thiamine [Vitamin B-1] 100 mg PO DAILY 10/22/20 05:00 BMP - BASIC METABOLIC PANEL [CHEM] DAILYLAB CBC - COMP BLD CT W/AUTO DIFF [HEME] DAILYLAB CRP - C-REACTIVE PROTEIN [CHEM] DAILYLAB MAGNESIUM [CHEM] DAILYLAB 10/23/20 05:00 BMP - BASIC METABOLIC PANEL [CHEM] DAILYLAB CBC - COMP BLD CT W/AUTO DIFF [HEME] DAILYLAB CRP - C-REACTIVE PROTEIN [CHEM] DAILYLAB MAGNESIUM [CHEM] DAILYLAB 10/24/20 05:00 BMP - BASIC METABOLIC PANEL [CHEM] DAILYLAB CBC - COMP BLD CT W/AUTO DIFF [HEME] DAILYLAB CRP - C-REACTIVE PROTEIN [CHEM] DAILYLAB 10/25/20 05:00 BMP - BASIC METABOLIC PANEL [CHEM] DAILYLAB CBC - COMP BLD CT W/AUTO DIFF [HEME] DAILYLAB CRP - C-REACTIVE PROTEIN [CHEM] DAILYLAB Subjective - Subjective Patient Reports: Resting Comfortably Objective Vital Signs: Vital Signs - 24 hr 10/20/20 10/20/20 10/21/20 16:04 19:30 00:00 Temperature 36.5 C 36.6 C Heart Rate 81 Heart Rate [ 103 H 93 Brachial] Respiratory 16 16 20 Rate Blood Pressure 120/78 128/76 [Right Brachial artery] O2 Saturation 94 92 10/21/20 10/21/20 10/21/20 00:20 08:00 10:19 Temperature 36.6 C Heart Rate 81 81 Heart Rate [ 81 Brachial] Respiratory 18 16 16 Rate Blood Pressure 121/71 [Right Brachial artery] O2 Saturation Oxygen O2 Source [Without Activity] Room air O2 Source Room air I&O (Last 24 Hrs): Intake and Output Totals x24h 10/19/20 10/20/20 10/21/20 23:59 23:59 23:59 Intake Total 1250 1680 Output Total 1300 2750 Balance -50 -1070 General: Alert, Oriented x3, No acute distress HEENT: Atraumatic Neck: Supple Lymphatic: no adenopathy Neuro: Alert, Non Focal, Oriented Times 3 Cardiovascular: Regular rate, Normal S1, Normal S2 Respiratory: Chest non-tender, No respiratory distress Abdomen: Normal bowel sounds, Soft Extremities: Normal pulses Comments/Notes: left foot with mild to moderate swelling with mild to moderate erythema, and with warmth. - Results Results: Laboratory Results WBC 6.1 x10^3/uL (4.8-10.8) 10/21/20 05:05 RBC 4.13 10^6/uL (4.70-6.10) L 10/21/20 05:05 Hgb 11.1 g/dL (14.0-18.0) L 10/21/20 05:05 Hct 34.0 % (42.0-52.0) L 10/21/20 05:05 MCV 82.3 fL (80.0-94.0) 10/21/20 05:05 MCH 26.9 pg (27.0-31.0) L 10/21/20 05:05 MCHC 32.6 g/dL (32.0-36.0) 10/21/20 05:05 RDW 16.4 % (12.0-15.0) H 10/21/20 05:05 Plt Count 205 10^3/uL (130-450) 10/21/20 05:05 MPV 8.7 fL (7.4-11.4) 10/21/20 05:05 Neut # (Auto) 3.7 10^3/uL (1.5-6.6) 10/21/20 05:05 Lymph # (Auto) 1.2 10^3/uL (1.5-3.5) L 10/21/20 05:05 Randall # (Auto) 0.7 10^3/uL (0.0-1.0) 10/21/20 05:05 Eos # (Auto) 0.4 10^3/uL (0.0-0.7) 10/21/20 05:05 Baso # (Auto) 0.0 10^3/uL (0.0-0.1) 10/21/20 05:05 Absolute Nucleated RBC 0.00 x10^3/uL 10/21/20 05:05 Nucleated RBC % 0.0 /100WBC 10/21/20 05:05 ESR 46 mm/Hr (0-20) H 10/20/20 17:31 Sodium 130 mmol/L (135-145) L 10/21/20 05:05 Potassium 4.2 mmol/L (3.5-5.0) 10/21/20 05:05 Chloride 100 mmol/L (101-111) L 10/21/20 05:05 Carbon Dioxide 22 mmol/L (21-32) 10/21/20 05:05 Anion Gap 8.0 (6-13) 10/21/20 05:05 BUN 18 mg/dL (6-20) 10/21/20 05:05 Creatinine 1.5 mg/dL (0.6-1.2) H 10/21/20 05:05 Estimated GFR (MDRD) 48 (>89) L 10/21/20 05:05 Glucose 107 mg/dL (70-100) H 10/21/20 05:05 Calcium 8.3 mg/dL (8.5-10.3) L 10/21/20 05:05 Magnesium 2.4 mg/dL (1.7-2.8) 10/21/20 05:05 Total Bilirubin 0.7 mg/dL (0.2-1.0) 10/20/20 17:31 AST 14 IU/L (10-42) 10/20/20 17:31 ALT < 10 IU/L (10-60) L 10/20/20 17:31 Alkaline Phosphatase 66 IU/L (42-121) 10/20/20 17:31 C-Reactive Protein 8.3 mg/dL (0-1.0) H 10/21/20 05:05 Total Protein 7.4 g/dL (6.7-8.2) 10/20/20 17:31 Albumin 3.9 g/dL (3.2-5.5) 10/20/20 17:31 Globulin 3.5 g/dL (2.1-4.2) 10/20/20 17:31 Albumin/Globulin Ratio 1.1 (1.0-2.2) 10/20/20 17:31 - Procedures Procedures: Procedures (12/21/18) EXTRACTION OF L FOOT SUBCU/FASCIA, PERC APPROACH (03/07/19) EXTRACTION OF RIGHT FOOT SKIN, EXTERNAL APPROACH (03/07/19) INSERT VAD RESERVOIR IN CHEST SUBCU/FASCIA, OPEN (04/09/18) INSERTION OF INFUSION DEV INTO SUP VENA CAVA, PERC APPROACH (04/09/18) ABX Reporting Has patient been on IV antibiotics over the past 48 hours?: Yes Current Medications - Current Medications Current Medications: Active Medications Acetaminophen (Acetaminophen 325 Mg Tablet) 650 mg PO Q4HR PRN PRN Reason: Pain 1 to 4 Albuterol (Albuterol Neb 2.5 Mg/3 Ml) 2.5 mg INH RTQ4H PRN PRN Reason: Wheezing Last Admin: 10/21/20 00:20 Dose: 2.5 mg Documented by: Albuterol/Ipratropium (Ipratropium/Albuterol 3 Ml Neb) 3 ml INH RTQID PRN PRN Reason: Wheezing Last Admin: 10/20/20 19:30 Dose: 3 ml Documented by: Budesonide (Budesonide 0.5 Mg/2 Ml Neb) 0.5 mg INH RTBID [facility] Last Admin: 10/21/20 07:52 Dose: 0.5 mg Documented by: Chlorhexidine Gluconate (Chlorhexidine Gluconate 15 Ml Udc) 15 ml PO BID PRN PRN Reason: THRUSH Last Admin: 10/21/20 09:35 Dose: 15 ml Documented by: Docusate Sodium (Docusate Sodium 100 Mg Capsule) 100 mg PO DAILY [facility] Last Admin: 10/21/20 10:16 Dose: 100 mg Documented by: Enoxaparin Sodium (Enoxaparin 40 Mg/0.4 Ml Syringe) 40 mg SUBQ DAILY [facility] Last Admin: 10/21/20 11:42 Dose: Not Given Documented by: Finasteride (Finasteride 5 Mg Tablet) 5 mg PO DAILY [facility] Last Admin: 10/21/20 10:15 Dose: 5 mg Documented by: Gabapentin (Gabapentin 400 Mg Capsule) 1,600 mg PO BID [facility] Last Admin: 10/21/20 10:15 Dose: 1,600 mg Documented by: Cefazolin Sodium 1 gm/ Sodium (Chloride) 100 mls @ 200 mls/hr IV Q8H [facility] Last Infusion: 10/21/20 11:10 Dose: Infused Documented by: Vancomycin HCl 2 gm/Vancomycin HCl 500 mg/ Sodium Chloride 500 mls @ 200 mls/hr IV ONCE [facility] Stop: 10/21/20 18:00 Ibuprofen (Ibuprofen 400 Mg Tablet) 400 mg PO Q4HR PRN PRN Reason: Pain 1 to 4 Levetiracetam (Levetiracetam 250 Mg Tablet) 500 mg PO BID [facility] Last Admin: 10/21/20 10:15 Dose: 500 mg Documented by: Lidocaine (Lidocaine Ointment 5% 35.44 Gm Tube) 1 applic TOP BID PRN PRN Reason: PAIN Last Admin: 10/21/20 11:49 Dose: 1 applic Documented by: Loperamide HCl (Loperamide 2 Mg Capsule) 2 mg PO QID PRN PRN Reason: Diarrhea Loratadine (Loratadine 10 Mg Tablet) 10 mg PO DAILY [facility] Last Admin: 10/21/20 10:15 Dose: 10 mg Documented by: Lorazepam (Lorazepam 1 Mg Tablet) 1 mg PO DAILY PRN PRN Reason: Anxiety Last Admin: 10/20/20 17:00 Dose: 1 mg Documented by: Lorazepam (Lorazepam 1 Mg Tablet) 1 mg PO BID [facility] Last Admin: 10/21/20 10:14 Dose: 1 mg Documented by: Lorazepam (Lorazepam 2 Mg/Ml Vial) 1 mg IVP Q30M PRN; Protocol PRN Reason: CIWA >8 Magnesium Hydroxide (Magnesium Hydroxide 2,400 Mg/30 Ml Udc) 2,400 mg PO DAILY PRN PRN Reason: CONSTIPATION Magnesium Oxide (Magnesium Oxide 400 Mg Tablet) 400 mg PO DAILYWM [facility] Last Admin: 10/21/20 10:15 Dose: 400 mg Documented by: Metoprolol Succinate (Metoprolol Succinate 50 Mg Tablet) 50 mg PO DAILY [facility] Last Admin: 10/21/20 10:14 Dose: 50 mg Documented by: Montelukast Sodium (Montelukast 10 Mg Tablet) 10 mg PO QPM [facility] Last Admin: 10/20/20 21:22 Dose: 10 mg Documented by: Multivitamins/Minerals (Multivitamin W/Minerals Tablet) 1 tab PO DAILYWM [facility] Last Admin: 10/21/20 10:14 Dose: 1 tab Documented by: Nystatin (Nystatin Cream 15 Gm Tube) 1 applic TOP BID [facility] Last Admin: 10/21/20 11:42 Dose: Not Given Documented by: Ondansetron HCl (Ondansetron Odt 4 Mg Tablet) 4 mg TL Q6HR PRN PRN Reason: Nausea / Vomiting Last Admin: 10/21/20 09:37 Dose: 4 mg Documented by: Ondansetron HCl (Ondansetron 4 Mg/2 Ml Vial) 4 mg IVP Q6HR PRN PRN Reason: Nausea / Vomiting Oxycodone HCl (Oxycodone Er 10 Mg Tablet) 20 mg PO BID [facility] Last Admin: 10/21/20 10:15 Dose: 20 mg Documented by: Oxycodone HCl (Oxycodone 5 Mg Tablet) 10 - 20 mg PO Q4H PRN PRN Reason: BREAKTHROUGH PAIN Last Admin: 10/21/20 06:24 Dose: 20 mg Documented by: Pantoprazole Sodium (Pantoprazole 40 Mg Tablet) 40 mg PO QDAC [facility] Last Admin: 10/21/20 06:24 Dose: 40 mg Documented by: Multivit/Folic Acid/Iron ( Vitamin Tablet) 1 tab PO DAILYWM [facility] Last Admin: 10/21/20 11:49 Dose: 1 tab Documented by: Saccharomyces Boulardii (Saccharomyces Boulardii 250 Mg Capsule) 250 mg PO BIDWM [facility] Last Admin: 10/21/20 10:14 Dose: 250 mg Documented by: Sodium Chloride (Sodium Chloride Flush 0.9% 10 Ml Syringe) 10 ml IVP PRN PRN PRN Reason: NEEDED PER PROVIDER ORDERS Sodium Chloride (Sodium Chloride Flush 0.9% 10 Ml Syringe) 10 ml IVP 0100,0900,1700 [facility] Last Admin: 10/21/20 10:16 Dose: 10 ml Documented by: Spironolactone (Spironolactone 25 Mg Tablet) 25 mg PO DAILY [facility] Last Admin: 10/21/20 10:16 Dose: 25 mg Documented by: Tamsulosin HCl (Tamsulosin 0.4 Mg Capsule) 0.4 mg PO DAILY [facility] Last Admin: 10/21/20 10:16 Dose: 0.4 mg Documented by: Thiamine HCl (Thiamine 100 Mg Tablet) 100 mg PO DAILY [facility] Last Admin: 10/21/20 11:49 Dose: 100 mg Documented by: Torsemide (Torsemide 20 Mg Tablet) 20 mg PO DAILY [facility] Last Admin: 10/21/20 10:15 Dose: 20 mg Documented by: Vancomycin HCl (Vancomycin: Pharmacy To Dose) 1 each MC ONCE PRN PRN Reason: PER PHARMACY Lorazepam [Ativan] 1 mg PO Q8HR PRN 09/23/15 Tamsulosin [Flomax] 0.4 mg PO DAILY 06/29/16 Lidocaine Ointment 5% [Xylocaine Ointment 5%] 1 applic TOP PRN PRN 08/20/17 Gabapentin [Neurontin] 1,600 mg PO BID 09/27/17 Albuterol Sulf [Ventolin Hfa Inhaler] 2 puffs INH Q4HR PRN 05/09/18 Melatonin 6 mg PO QPM PRN 05/09/18 Chlorhexidine Gluconate [Peridex] 15 ml PO DAILY PRN 12/18/18 Esomeprazole Magnesium [Nexium] 20 mg PO DAILY 12/18/18 Magnesium 500 mg PO BID 12/18/18 polyethylene glycoL 3350 [Miralax] 17 gm PO DAILY PRN 12/18/18 Budesonide/Formoterol Fumarate [Symbicort 160-4.5 Mcg Inhaler] 2 puffs IH BID 12/20/18 Ipratropium/Albuterol [Duoneb] 3 ml INH Q4HR PRN MDD hold no nebulizzer 02/15/19 Loperamide HCl [Loperamide] 2 mg PO QID PRN 02/23/19 Docusate Sodium 200 mg PO DAILY PRN 05/13/19 Metoprolol Succinate 50 mg PO DAILY 08/05/19 Naloxone HCl [Narcan] 1 spr CHANCE ONCE PRN 08/05/19 Nystatin 5 ml PO DAILY PRN 08/05/19 Nystatin Cream [Mycostatin Cream] 1 applic TOP QPM 08/05/19 Spironolactone [Aldactone] 25 mg PO DAILY 08/05/19 Triamcinolone 0.1% Cream [Kenalog 0.1% Cream] 1 applic TOP BID PRN 10/27/19 Lactobacillus Acidophilus [Probiotic Acidophilus] 1 tab ORAL DAILY 01/28/20 oxyCODONE [Roxicodone] 5 - 10 mg PO Q4HR MDD 8 tabs 02/06/20 Loratadine [Claritin] 10 mg PO DAILY PRN 06/16/20 Cyanocobalamin (Vitamin B-12) [Vitamin B-12] 1,000 mcg PO DAILY 10/20/20 Finasteride [Proscar] 5 mg PO DAILY 10/20/20 Ketotifen Fumarate [Alaway] 1 drops EACHEYE PRN PRN 10/20/20 Torsemide 20 mg PO DAILY 10/20/20 diphenhydrAMINE [Benadryl] 25 mg PO PRN PRN 10/20/20
[2020-10-21] MEDS ORDERED: GADOBUTROL 15 MMOL/15 ML VIAL IVP ONE (15:38)
[2020-10-21] MEDS ORDERED: VANCOMYCIN INJ 2 GM, VANCOMYCIN INJ 500 MG in SODIUM CHLORIDE 0.9% 500 ML IV SCH (16:00)
--- NOTE | 2020-10-21 17:12 | CONSULTATION NOTE ---
Referring Provider Name of Referring Provider:: Bertin Consult Date: 10/21/20 Chief Complaint - Chief Complaint Chief Complaint: Ulcer left foot History of Present Illness - Admitted From Admitted From:: ED - History of Present Illness HPI Comment/Other: Patient is a 60-year-old male with a history of peripheral neuropathy current EtOH use, current smoker with a significant pack-year history, surgical history of 3 toes amputated 4 years ago with the great toe amputated last year all left foot Admitted for a pressure ulcer left foot plantar surface underneath the head of the fifth metatarsal. Rule out osteomyelitis. Patient reports a history of a callus formation over the same spot that will thicken and then ulcerate with pain and recurrent infection. Patient's had it I indeed in the past only for the callus to get worse in the process to repeat itself. Patient has not been admitted for osteomyelitis in his left foot patient reports. Patient has pain and swelling and drainage from the open ulcer it is hard to walk on.Patient has peripheral neuropathy and has baseline lack of sensation to his lower extremities.Patient is a current EtOH user and smokes approximately "half a pack" of cigarettes a day. This is a Orthopedic surgical consult Accompanied by [facility] orthopedic surgeon Dr Nestor Benito History - Past Medical History Cardiovascular: reports: Congestive heart failure, Hypertension, Coronary artery disease Respiratory: reports: COPD, Shortness of breath, Other Neuro: reports: Dementia, Headaches, Peripheral neuropathy, Seizure disorder, Other Endocrine/Autoimmune: reports: None GI: reports: GERD, Chronic constipation, Diverticulitis MANAGER PORTABLE: reports: None : reports: Benign prostate hypertrophy, Incontinence, Nocturia, Frequency HEENT: reports: Chronic vision loss Psych: reports: Anxiety Musculoskeletal: reports: Chronic back pain, Other Derm: reports: Other MRSA Hx?: Yes - Past Surgical History Ortho: reports: Amputation Cardiovascular: reports: Cardiac catheterization Neuro: reports: Craniotomy, Gamma knife - Family & Social History Family History: Mother: , Cancer, Diabetes, Type 2, Father: , Cancer, Sister: Alive and Well, Cancer, Other family: Alive and Well Family History Comment/Other: Patient report his father from the lung cancer and heavy smoker at age 68. Patient report his mother at age 59 From lung cancer and heavy smoker Living Situation: With caregiver(s) Social History Notes: He currently lives at [facility] assisted living facility. In the past The patient lived in [place], [place] with a roommate whom he has recently met. The patient was born in [place] at [facility]. His father was in the but the patient himself was not in the . The patient has 3 children and is . He has a sister who lives on [facility]. The patient continues to smoke almost 1 pack/day and has been doing so for about 40 years. He also drinks 324 ounce beers and 3 shots of vodka daily. He denies any illicit drug use. - Substance History Use: Uses substance without health or social issues: Tobacco (currently 0.5 ppd), Alcohol (3+ drinks/day) - POLST Patient has POLST: No POLST Status: Full Code Meds/Allgy - Home Medications Home Medications: Ambulatory Orders Medication Instructions Recorded Confirmed Lorazepam [Ativan] 1 mg PO Q8HR PRN 09/23/15 10/20/20 Tamsulosin [Flomax] 0.4 mg PO DAILY 06/29/16 10/20/20 Lidocaine Ointment 5% [Xylocaine 1 applic TOP PRN PRN 08/20/17 10/20/20 Ointment 5%] Gabapentin [Neurontin] 1,600 mg PO BID 09/27/17 10/20/20 Levetiracetam [Keppra] 500 mg PO BID #30 tablet 11/23/17 10/20/20 Ondansetron Odt [Zofran Odt] 4 mg TL Q6H PRN #15 tablet 03/19/18 10/20/20 Albuterol Sulf [Ventolin Hfa 2 puffs INH Q4HR PRN 05/09/18 10/20/20 Inhaler] Melatonin 6 mg PO QPM PRN 05/09/18 10/20/20 Chlorhexidine Gluconate [Peridex] 15 ml PO DAILY PRN 12/18/18 10/20/20 Esomeprazole Magnesium [Nexium] 20 mg PO DAILY 12/18/18 10/20/20 Magnesium 500 mg PO BID 12/18/18 10/20/20 polyethylene glycoL 3350 [Miralax] 17 gm PO DAILY PRN 12/18/18 10/20/20 Budesonide/Formoterol Fumarate 2 puffs IH BID 12/20/18 10/20/20 [Symbicort 160-4.5 Mcg Inhaler] Montelukast [Singulair] 10 mg PO QPM #30 tablet 12/28/18 10/20/20 Ipratropium/Albuterol [Duoneb] 3 ml INH Q4HR PRN MDD hold no 02/15/19 10/20/20 nebulizzer Loperamide HCl [Loperamide] 2 mg PO QID PRN 02/23/19 10/20/20 Docusate Sodium 200 mg PO DAILY PRN 05/13/19 10/20/20 Metoprolol Succinate 50 mg PO DAILY 08/05/19 10/20/20 Naloxone HCl [Narcan] 1 spr CHANCE ONCE PRN 08/05/19 10/20/20 Nystatin 5 ml PO DAILY PRN 08/05/19 10/20/20 Nystatin Cream [Mycostatin Cream] 1 applic TOP QPM 08/05/19 10/20/20 Spironolactone [Aldactone] 25 mg PO DAILY 08/05/19 10/20/20 Triamcinolone 0.1% Cream [Kenalog 1 applic TOP BID PRN 10/27/19 10/20/20 0.1% Cream] Lactobacillus Acidophilus 1 tab ORAL DAILY 01/28/20 10/20/20 [Probiotic Acidophilus] oxyCODONE [Roxicodone] 5 - 10 mg PO Q4HR MDD 8 tabs 02/06/20 10/20/20 Loratadine [Claritin] 10 mg PO DAILY PRN 06/16/20 10/20/20 Cyanocobalamin (Vitamin B-12) 1,000 mcg PO DAILY 10/20/20 10/20/20 [Vitamin B-12] Finasteride [Proscar] 5 mg PO DAILY 10/20/20 10/20/20 Ketotifen Fumarate [Alaway] 1 drops EACHEYE PRN PRN 10/20/20 10/20/20 Torsemide 20 mg PO DAILY 10/20/20 10/20/20 diphenhydrAMINE [Benadryl] 25 mg PO PRN PRN 10/20/20 10/20/20 - Allergies Allergies/Adverse Reactions: Allergies Allergy/AdvReac Type Severity Reaction Status Date / Time BRONWYN Inhibitors Allergy Emesis Verified 10/20/20 15:32 clavulanic acid Allergy Emesis Verified 10/20/20 15:32 [From Augmentin] lisinopril Allergy "THROAT Verified 10/20/20 15:32 SWELLING" Review of Systems - Constitutional Constitutional: denies: Fever, Chills - Eyes Eyes: reports: Pain - Integumentary Integumentary: reports: Lesions Exam - Vital Signs Vital Signs: Vital Signs x48h Temp Pulse Resp BP Pulse Ox 10/21/20 16:00 36.8 C 81 20 102/60 93 10/21/20 10:19 36.6 C 81 16 121/71 - Physical Exam General Appearance: positive: No acute distress Skin: positive: Warm, Other (Patient had the first 4 toes amputated with good healing from incision.Patient has a 1 cm x 1 cm callus plantar surface left foot in line with the fifth metatarsal head. There is an open 5 mm diameter Full- thickness ulcer. There is serous and purulent drainage from the wound. Warm skin pulses good) Conclusion and Plan - Lab Results Laboratory Results 10/21/20 05:05: Sodium 130 L, Potassium 4.2, Chloride 100 L, Carbon Dioxide 22, Anion Gap 8.0, BUN 18, Creatinine 1.5 H, Estimated GFR (MDRD) 48 L, Glucose 107 H, Calcium 8.3 L, Magnesium 2.4, C-Reactive Protein 8.3 H 10/21/20 05:05: WBC 6.1, RBC 4.13 L, Hgb 11.1 L, Hct 34.0 L, MCV 82.3, MCH 26.9 L, MCHC 32.6, RDW 16.4 H, Plt Count 205, MPV 8.7, Neut # (Auto) 3.7, Lymph # (Auto) 1.2 L, [place] # (Auto) 0.7, Eos # (Auto) 0.4, Baso # (Auto) 0.0, Absolute Nucleated RBC 0.00, Nucleated RBC % 0.0 10/20/20 17:31: Magnesium 2.2 10/20/20 17:31: Sodium 132 L, Potassium 4.2, Chloride 97 L, Carbon Dioxide 25, Anion Gap 10.0, BUN 19, Creatinine 1.6 H, Estimated GFR (MDRD) 45 L, Glucose 92, Calcium 8.7, Total Bilirubin 0.7, AST 14, ALT < 10 L, Alkaline Phosphatase 66, C-Reactive Protein 6.3 H, Total Protein 7.4, Albumin 3.9, Globulin 3.5, Albumin/Globulin Ratio 1.1 10/20/20 17:31: ESR 46 H 10/20/20 17:31: WBC 7.9, RBC 4.21 L, Hgb 11.3 L, Hct 35.1 L, MCV 83.4, MCH 26.8 L, MCHC 32.2, RDW 16.5 H, Plt Count 215, MPV 8.8, Neut # (Auto) 5.7, Lymph # (Auto) 1.0 L, [place] # (Auto) 0.8, Eos # (Auto) 0.4, Baso # (Auto) 0.0, Absolute Nucleated RBC 0.00, Nucleated RBC % 0.0 - Diagnostic Imaging Results Diagnostic Imaging Results: positive: Prelim report reviewed, Read independently (MRI independently visualized Suggestive of bone edema over lateral metatarsals. Findings inconclusive for acute osteomyelitis infection) - Diagnosis Diagnosis: Ulceration of pressure ulcer plantar surface left foot over the fifth metatarsal head - Plan Plan: Patient is a 60-year-old male with a history of peripheral neuropathy,, current EtOH use, current smoker significant pack-year history, Negative diabetes Presented with an infected ulceration of a pressure ulcer over the plantar surface left foot. Findings not concerning for acute osteomyelitis. A sterile stylus was used to probe to wound the wound and Underlying bone found to be firm hard and Minor probing did produce a small amount of blood. This appears to be a cyclic loading problem of the lower left foot. The plan is to Do a local debridement Using a rongeur in the hospital room under local anesthesia. MRI reviewed with suspicion for osteomyelitis, continue current antibiotic course. Patient is under hospitalist medical management, No change to medical management plan.
[2020-10-21] MEDS: IPRATROPIUM/ALBUTEROL 3 ML NEB INH PRN (19:30)
[2020-10-21] MEDS: MONTELUKAST 10 MG TABLET PO SCH (20:57)
[2020-10-22] MEDS: oxyCODONE 5 MG TABLET PO PRN ×3 (01:57→11:56)
[2020-10-22] MEDS: SODIUM CHLORIDE FLUSH 0.9% 10 ML SYRINGE IVP SCH ×2 (01:57→08:19)
[2020-10-22] MEDS ORDERED: VANCOMYCIN INJ 1 GM in SODIUM CHLORIDE 0.9% 250 ML IV SCH (04:00)
[2020-10-22 05:18] LABS: BASOPHILS # (AUTO) 0.1 10^3/uL (0.0-0.1); BASOPHILS % (AUTO) 0.8 %; EOSINOPHILS # (AUTO) 0.4 10^3/uL (0.0-0.7); EOSINOPHILS % (AUTO) 6.8 %; HCT - HEMATOCRIT 34.8 % (42.0-52.0); LYMPHOCYTES # (AUTO) 1.4 10^3/uL (1.5-3.5); LYMPHOCYTES % (AUTO) 23.1 %; MEAN CORPUSCULAR HEMOGLOBIN 26.3 pg (27.0-31.0); MEAN CORPUSCULAR HGB CONC 31.6 g/dL (32.0-36.0); MEAN CORPUSCULAR VOLUME 83.3 fL (80.0-94.0); MONOCYTES # (AUTO) 0.7 10^3/uL (0.0-1.0); MONOCYTES % (AUTO) 11.4 %; NEUTROPHILS # (AUTO) 3.5 10^3/uL (1.5-6.6); NEUTROPHILS % (AUTO) 57.6 %; PLT - PLATELET COUNT 199 10^3/uL (130-450); RED BLOOD COUNT 4.18 10^6/uL (4.70-6.10); RED CELL DISTRIBUTION WIDTH 16.3 % (12.0-15.0); WHITE BLOOD COUNT 6.2 x10^3/uL (4.8-10.8)
[2020-10-22 05:38] LABS: CALCIUM 8.5 mg/dL (8.5-10.3); CREATININE 1.5 mg/dL (0.6-1.2); CRP - C-REACTIVE PROTEIN 9.6 mg/dL (0-1.0); MAGNESIUM 2.3 mg/dL (1.7-2.8); POTASSIUM 4.1 mmol/L (3.5-5.0)
[2020-10-22] MEDS: PANTOPRAZOLE 40 MG TABLET PO SCH (05:57)
[2020-10-22 08:05] VITALS: BP 104/76
[2020-10-22] MEDS: CHLORHEXIDINE GLUCONATE 15 ML UDC PO PRN (08:16)
[2020-10-22] MEDS: MULTIVITAMIN W/MINERALS TABLET PO SCH (08:17)
[2020-10-22] MEDS: METOPROLOL SUCCINATE 50 MG TABLET PO SCH (08:17)
[2020-10-22] MEDS: THIAMINE 100 MG TABLET PO SCH (08:17)
[2020-10-22] MEDS: TORSEMIDE 20 MG TABLET PO SCH (08:17)
[2020-10-22] MEDS: MAGNESIUM OXIDE 400 MG TABLET PO SCH (08:17)
[2020-10-22] MEDS: SPIRONOLACTONE 25 MG TABLET PO SCH (08:17)
[2020-10-22] MEDS: FINASTERIDE 5 MG TABLET PO SCH (08:17)
[2020-10-22] MEDS: SACCHAROMYCES BOULARDII 250 MG CAPSULE PO SCH (08:17)
[2020-10-22] MEDS: TAMSULOSIN 0.4 MG CAPSULE PO SCH (08:17)
[2020-10-22] MEDS: LORATADINE 10 MG TABLET PO SCH (08:17)
[2020-10-22] MEDS: DOCUSATE SODIUM 100 MG CAPSULE PO SCH (08:17)
[2020-10-22] MEDS: LORazepam 1 MG TABLET PO SCH (08:17)
[2020-10-22] MEDS: PRENATAL VITAMIN TABLET PO SCH (08:17)
[2020-10-22] MEDS: GABAPENTIN 400 MG CAPSULE PO SCH (08:18)
[2020-10-22] MEDS: levETIRAcetam 250 MG TABLET PO SCH (08:18)
[2020-10-22] MEDS: oxyCODONE ER 10 MG TABLET PO SCH (08:18)
[2020-10-22] MEDS: ENOXAPARIN 40 MG/0.4 ML SYRINGE SUBQ SCH (08:19)
[2020-10-22] MEDS: NYSTATIN CREAM 15 GM TUBE TOP SCH (08:19)
[2020-10-22] MEDS: BUDESONIDE 0.5 MG/2 ML NEB INH SCH (08:32)
[2020-10-22] MEDS: IPRATROPIUM/ALBUTEROL 3 ML NEB INH PRN (08:32)
[2020-10-22] MEDS ORDERED: polyethylene glycoL 3350 17 GM PACKET PO SCH (09:00)
[2020-10-22] MEDS: LIDOCAINE OINTMENT 5% 35.44 GM TUBE TOP PRN (10:54)
--- NOTE | 2020-10-22 12:11 | PROVIDER PROGRESS NOTE ---
Subjective - General Admit Date: 10/20/20 Procedure Date: 04/09/18 Post Op Days: 927 - Other Other Information/Narrative: This is a 60-year-old man with a recurrent ulcer over the plantar aspect of his left forefoot he has had a chronic and recurring ulcer over the left fourth metatarsal head. He has had amputation of all the lesser toes except the left fifth toe. Does have a history of neuropathy; not due to diabetes. He is a smoker and has used alcohol heavily in the past. He develops recurrent callosity and ulceration in that is the presentation now. Because of the ulcer communicates to bone, an MRI scan was obtained. Objective - Patient Data Vital Signs: Vital Signs x48h Temp Pulse Pulse Resp BP Pulse Ox 10/22/20 08:55 72 18 10/22/20 08:04 37 C 77 20 104/76 93 Weight: Weight 10/20/20 10/21/20 10/22/20 23:59 23:59 23:59 Weight (kg) 117 kg 117 kg Intake & Output: Intake and Output Totals x24h 10/20/20 10/21/20 10/22/20 23:59 23:59 23:59 Intake Total 1250 2780 730 Output Total 1300 3675 1475 Balance -50 -895 -745 - Lab Results Lab Results: 10/22/20 05:10 10/22/20 05:10 Other Lab Results: Lab Results x24hrs 10/22/20 10/22/20 Range/Units 05:10 05:10 WBC 6.2 (4.8-10.8) x10^3/uL RBC 4.18 L (4.70-6.10) 10^6/uL Hgb 11.0 L (14.0-18.0) g/dL Hct 34.8 L (42.0-52.0) % MCV 83.3 (80.0-94.0) fL MCH 26.3 L (27.0-31.0) pg MCHC 31.6 L (32.0-36.0) g/dL RDW 16.3 H (12.0-15.0) % Plt Count 199 (130-450) 10^3/uL MPV 9.0 (7.4-11.4) fL Neut # (Auto) 3.5 (1.5-6.6) 10^3/uL Lymph # (Auto) 1.4 L (1.5-3.5) 10^3/uL [place] # (Auto) 0.7 (0.0-1.0) 10^3/uL Eos # (Auto) 0.4 (0.0-0.7) 10^3/uL Baso # (Auto) 0.1 (0.0-0.1) 10^3/uL Absolute Nucleated RBC 0.00 x10^3/uL Nucleated RBC % 0.0 /100WBC Sodium 134 L (135-145) mmol/L Potassium 4.1 (3.5-5.0) mmol/L Chloride 103 (101-111) mmol/L Carbon Dioxide 22 (21-32) mmol/L Anion Gap 9.0 (6-13) BUN 21 H (6-20) mg/dL Creatinine 1.5 H (0.6-1.2) mg/dL Estimated GFR (MDRD) 48 L (>89) Glucose 134 H (70-100) mg/dL Calcium 8.5 (8.5-10.3) mg/dL Magnesium 2.3 (1.7-2.8) mg/dL C-Reactive Protein 9.6 H (0-1.0) mg/dL - Current Medications Current Medications: Current Medications Generic Name Dose Route Start Last Admin Trade Name Freq PRN Reason Stop Dose Admin Albuterol 2.5 mg 10/20/20 16:32 10/21/20 00:20 Albuterol Neb 2.5 Mg/3 Ml INH 2.5 mg RTQ4H PRN Administration Wheezing Albuterol/Ipratropium 3 ml 10/20/20 16:35 10/22/20 08:32 Ipratropium/Albuterol 3 Ml Neb INH 3 ml RTQID PRN Administration Wheezing Budesonide 0.5 mg 10/20/20 19:00 10/22/20 08:32 Budesonide 0.5 Mg/2 Ml Neb INH 0.5 mg RTBID GIOVANA Administration Chlorhexidine Gluconate 15 ml 10/20/20 21:00 10/22/20 08:16 Chlorhexidine Gluconate 15 Ml Udc PO 15 ml BID PRN Administration THRUSH Docusate Sodium 100 mg 10/21/20 09:00 10/22/20 08:17 Docusate Sodium 100 Mg Capsule PO 100 mg DAILY GIOVANA Administration Enoxaparin Sodium 40 mg 10/21/20 09:00 10/22/20 08:19 Enoxaparin 40 Mg/0.4 Ml Syringe SUBQ Not Given DAILY GIOVANA Finasteride 5 mg 10/21/20 09:00 10/22/20 08:17 Finasteride 5 Mg Tablet PO 5 mg DAILY GIOVANA Administration Gabapentin 1,600 mg 10/20/20 21:00 10/22/20 08:18 Gabapentin 400 Mg Capsule PO 1,600 mg BID GIOVANA Administration Vancomycin HCl 1 gm/ Sodium 250 mls @ 167 mls/hr 10/22/20 04:00 10/22/20 05:31 Chloride IV Infused Q12H GIOVANA Infusion Levetiracetam 500 mg 10/20/20 21:00 10/22/20 08:18 Levetiracetam 250 Mg Tablet PO 500 mg BID GIOVANA Administration Lidocaine 1 applic 10/21/20 01:16 10/22/20 10:54 Lidocaine Ointment 5% 35.44 Gm Tube TOP 1 applic BID PRN Administration PAIN Loratadine 10 mg 10/21/20 09:00 10/22/20 08:17 Loratadine 10 Mg Tablet PO 10 mg DAILY GIOVANA Administration Lorazepam 1 mg 10/20/20 16:37 10/20/20 17:00 Lorazepam 1 Mg Tablet PO 1 mg DAILY PRN Administration Anxiety Lorazepam 1 mg 10/20/20 21:00 10/22/20 08:17 Lorazepam 1 Mg Tablet PO 1 mg BID GIOVANA Administration Magnesium Oxide 400 mg 10/21/20 08:00 10/22/20 08:17 Magnesium Oxide 400 Mg Tablet PO 400 mg DAILYWM GIOVAAN Administration Metoprolol Succinate 50 mg 10/21/20 09:00 10/22/20 08:17 Metoprolol Succinate 50 Mg Tablet PO 50 mg DAILY GIOVANA Administration Montelukast Sodium 10 mg 10/20/20 21:00 10/21/20 20:57 Montelukast 10 Mg Tablet PO 10 mg QPM GIOVANA Administration Multivitamins/Minerals 1 tab 10/21/20 08:00 10/22/20 08:17 Multivitamin W/Minerals Tablet PO 1 tab DAILYWM GIOVANA Administration Nystatin 1 applic 10/20/20 21:00 10/22/20 08:19 Nystatin Cream 15 Gm Tube TOP Not Given BID GIOVANA Ondansetron HCl 4 mg 10/20/20 16:03 10/21/20 09:37 Ondansetron Odt 4 Mg Tablet TL 4 mg Q6HR PRN Administration Nausea / Vomiting Oxycodone HCl 20 mg 10/20/20 21:00 10/22/20 08:18 Oxycodone Er 10 Mg Tablet PO 20 mg BID GIOVANA Administration Oxycodone HCl 10 - 20 mg 10/20/20 16:55 10/22/20 11:56 Oxycodone 5 Mg Tablet PO 20 mg Q4H PRN Administration BREAKTHROUGH PAIN Pantoprazole Sodium 40 mg 10/21/20 07:00 10/22/20 05:57 Pantoprazole 40 Mg Tablet PO 40 mg QDAC GIOVANA Administration Polyethylene Glycol 17 gm 10/22/20 09:00 10/22/20 08:18 Polyethylene Glycol 3350 17 Gm Packet PO 17 gm DAILY GIOVANA Administration Multivit/Folic Acid/Iron 1 tab 10/21/20 11:00 10/22/20 08:17 Vitamin Tablet PO 1 tab DAILYWM GIOVANA Administration Saccharomyces Boulardii 250 mg 10/20/20 17:00 10/22/20 08:17 Saccharomyces Boulardii 250 Mg Capsule PO 250 mg BIDWM GIOVANA Administration Sodium Chloride 10 ml 10/20/20 16:03 10/22/20 05:56 Sodium Chloride Flush 0.9% 10 Ml Syringe IVP 20 ml PRN PRN Administration NEEDED PER PROVIDER ORDERS Sodium Chloride 10 ml 10/20/20 17:00 10/22/20 08:19 Sodium Chloride Flush 0.9% 10 Ml Syringe IVP 10 ml 0100,0900,1700 GIOVANA Administration Spironolactone 25 mg 10/21/20 09:00 10/22/20 08:17 Spironolactone 25 Mg Tablet PO 25 mg DAILY GIOVANA Administration Tamsulosin HCl 0.4 mg 10/21/20 09:00 10/22/20 08:17 Tamsulosin 0.4 Mg Capsule PO 0.4 mg DAILY GIOVANA Administration Thiamine HCl 100 mg 10/21/20 11:00 10/22/20 08:17 Thiamine 100 Mg Tablet PO 100 mg DAILY GIOVANA Administration Torsemide 20 mg 10/21/20 09:00 10/22/20 08:17 Torsemide 20 Mg Tablet PO 20 mg DAILY GIOVANA Administration - Physical Exam Wound/Incisions: negative: Other (5 mm localized ulcer communicates with left fourth metatarsal head, no purulence or cellulitis) General Appearance: positive: No acute distress Cardiovascular: negative: Other (Good pulses to left foot) Extremities: negative: Other (Heel cord on left side is not tight and the foot is plantigrade) Neurologic/Psychiatric: negative: Sensation nml (Decreased sensation left foot) Impression/Plan - Problem List Problem List: The patient has had routine radiographs of the left foot that remain normal. A recent MRI scan suggest the possibility of a fourth metatarsal head osteomyelitis. This would be suggestive of a possibility of an acute osteomyelitis as there is no radiographic changes on routine x-ray. Acute osteomyelitis fourth metatarsal head left foot. Discussion: It can be difficult to make the diagnosis of an osteomyelitis with normal x-ray. Although the MRI scan is suggestive if not necessarily diagnostic and a bone biopsy can sometimes be helpful. He does have a reason to have osteomyelitis, namely a contiguous plantar ulcer, history of neuropathy and history of previous toe amputations, smoker. As per his verbal consent, the fourth metatarsal head was debrided from the plantar ulcer with a curette and small bone rondure. I cannot definitively say that this bone was abnormal as there was just very small fragments and they seem to be vascularity to bone. The wound was sterilely dressed. I have discussed the plan with Dr. Denton: I suggested a short boot walker, oral antibiotics for 6 weeks which they have prescribed for methicillin-resistant staph. I would like to see him in my office this coming Sunday. I suspect that a diabetic type of total contact cast would be helpful for healing. I also would suspect that amputation of the fifth toe would be helpful in the future as it is contributing to depressing the left fifth metatarsal head. There is a possibility that a fourth metatarsal ray amputation of the left foot might need to be considered if osteomyelitis progresses. The patient is in agreement with this plan.
--- NOTE | 2020-10-22 13:22 | Discharge Plan ---
Discharge Plan Problem Reviewed?: Yes Disposition: Home, Self Care Condition: Stable Prescriptions: Doxycycline Hyclate 100 mg PO BID 42 Days #84 tab Thiamine HCl [Vitamin B-1] 100 mg PO DAILY #30 tablet Diet: Regular Activity Restrictions: Activity as Tolerated Shower Restrictions: No (fall precaution) Instruction Topics: Doxycycline tablets or capsules, Wound Care Health Concerns: wound care Plan of Treatment: your fourth metatarsal head was debrided from the plantar ulcer with a curette and small bone rondure. your surgeon Dr. Benito will see you at his office on next week Sunday10/25/20. His office phone is [phone]. you are prescribed antibiotics for finishing of your treatment course. Care Goals: stabilization and improvement/resolve of your medical conditions Assessment: discussed the care plan with you, answered your questions, you understood. Additional Instructions or Follow Up instructions: You may followup with your PCP in one to two weeks, followup with Dr. Benito at his office on next week Sunday. Should your symptoms return or worsen, you may present ER or call 911 for help. No Smoking: If you smoke, Please STOP! Call for help.
--- NOTE | 2020-10-22 13:35 | DISCHARGE SUMMARY ---
Discharge Summary Admit Date: 10/20/20 Discharge Date: 10/22/20 Discharging Provider: Rolando Arreguin Primary Care Provider: Ally Falcon Condition at Discharge: Stable Discharge Disposition: 01 Home, Self Care Discharge Facility Name: [facility] - DIAGNOSES Discharge Diagnoses with Status of Each Condition: (1) Pressure ulcer of left foot routine radiographs of the left foot show no plain radiographic evidence of osteomyelitis. A MRI scan suggestive a fourth metatarsal head osteomyelitis. pt's fourth metatarsal head was debrided from the plantar ulcer with a curette and small bone rondure. pt is advised to see surgeon on next week Sunday at surgeon's office. According to pt's wound culture which show positive staph Au reus. according to sensitivity study, pt is prescribed 6 weeks of antibiotics Doxycycline, per surgeon Dr. Benito's recommendation. (2) Metastatic primary lung cancer stable, advise pt continue followup with his oncologist (3) Brain malignancy stable, advise pt continue followup with his oncologist (4) Congestive heart failure stable, resume home meds, followup with PCP. (5) COPD (chronic obstructive pulmonary disease) stable, resume home meds (6) Current smoker advise pt quit smoking (7) Hx of seizure disorder stable, resume home meds (8) Chronic pain stable, resume pt's home pain meds (9) History of nonadherence to medical treatment advise pt do medical compliance. (10)alcohol abuse B1 is prescribed for pt - HPI History of Present Illness: This is a 60-year-old male with a complex medical history significant for metastatic adenocarcinoma of the lung with mets to the brain, hypertension, coronary disease, peripheral vascular disease, COPD, seizure disorder, GERD, diverticulits, chronic constipation, BPH, Opiate dependent on oxycodone, ischemic peripheral disease nonhealing ulcer to foot, anemia, chronic current every day smoker/tobacco dependence, medical noncompliance, alcohol dependence, CHF, Chronic back and C-spine pain, who present to [facility] clinic for wound care, then Wound care provider consulted medical team for direct admission for concern ing complication for osteomyelitis and cellulitis. Pt report his wound in left foot has been for about 4 yrs. He report pain at his left foot. He denies fever, chill. pt was seen by in [facility] clinic today. Pt had wound hygiene with debridement, wound culture, new hydrophilic dressing. It was concerning the wound probes to bone and suspicious for osteomyelitis. Xray of left foot reveals on plain radiographic evidence of osteomyelitis. MRI is planning for pt. In the examination, pt's left foot first 4 toes were amputated. The wound located at the lateral inferior of the fifth toe with new dressed coverage done by [facility]. The foot is mild swelling with warmth. Laboratory tests that show sodium 132, creatinine is 1.6 as baseline, CRP 6.3, ESR 46, WBC 7.9. Patient is afebrile, patient is hemodynamically stable without tachypnea, patient had 94% sats on room air. Patient also report he still smoke half a pack per day "I just cannot get away this staff." patient report he still drinks alcohol daily but he denies has alcohol withdrawal. Given above medical condition, medical team was called for admission. Discussed the care goal with the patient, patient requests full code - CONSULTS | PROCEDURES Consultations: Dr. Benito Procedures: debrided from the plantar ulcer with a curette and small bone rondure - HOSPITAL COURSE Hospital Course: pt is directly admitted from [facility] for wound care. pt was concern of osteomyelitis infection at his left foot. routine radiographs of the left foot show no plain radiographic evidence of osteomyelitis. A MRI scan suggestive a fourth metatarsal head osteomyelitis. pt's fourth metatarsal head was debrided from the plantar ulcer with a curette and small bone rondure. According wound culture and sensitivity study, per surgeon's suggestion, pt is prescribed antibiotics for 6 weeks. pt is advised to see his surgeon Dr. Benito on Next week Sunday. - ALLERGIES Allergies/Adverse Reactions: Allergies Allergy/AdvReac Type Severity Reaction Status Date / Time BRONWYN Inhibitors Allergy Emesis Verified 10/20/20 15:32 clavulanic acid Allergy Emesis Verified 10/20/20 15:32 [From Augmentin] lisinopril Allergy "THROAT Verified 10/20/20 15:32 SWELLING" - MEDICATIONS Home Medications: Ambulatory Orders Medication Instructions Recorded Confirmed Lorazepam [Ativan] 1 mg PO Q8HR PRN 09/23/15 10/20/20 Tamsulosin [Flomax] 0.4 mg PO DAILY 06/29/16 10/20/20 Lidocaine Ointment 5% [Xylocaine 1 applic TOP PRN PRN 08/20/17 10/20/20 Ointment 5%] Gabapentin [Neurontin] 1,600 mg PO BID 09/27/17 10/20/20 Levetiracetam [Keppra] 500 mg PO BID #30 tablet 11/23/17 10/20/20 Ondansetron Odt [Zofran Odt] 4 mg TL Q6H PRN #15 tablet 03/19/18 10/20/20 Albuterol Sulf [Ventolin Hfa 2 puffs INH Q4HR PRN 05/09/18 10/20/20 Inhaler] Melatonin 6 mg PO QPM PRN 05/09/18 10/20/20 Chlorhexidine Gluconate [Peridex] 15 ml PO DAILY PRN 12/18/18 10/20/20 Esomeprazole Magnesium [Nexium] 20 mg PO DAILY 12/18/18 10/20/20 Magnesium 500 mg PO BID 12/18/18 10/20/20 polyethylene glycoL 3350 [Miralax] 17 gm PO DAILY PRN 12/18/18 10/20/20 Budesonide/Formoterol Fumarate 2 puffs IH BID 12/20/18 10/20/20 [Symbicort 160-4.5 Mcg Inhaler] Montelukast [Singulair] 10 mg PO QPM #30 tablet 12/28/18 10/20/20 Ipratropium/Albuterol [Duoneb] 3 ml INH Q4HR PRN MDD hold no 02/15/19 10/20/20 nebulizzer Loperamide HCl [Loperamide] 2 mg PO QID PRN 02/23/19 10/20/20 Docusate Sodium 200 mg PO DAILY PRN 05/13/19 10/20/20 Metoprolol Succinate 50 mg PO DAILY 08/05/19 10/20/20 Naloxone HCl [Narcan] 1 spr CHANCE ONCE PRN 08/05/19 10/20/20 Nystatin 5 ml PO DAILY PRN 08/05/19 10/20/20 Nystatin Cream [Mycostatin Cream] 1 applic TOP QPM 08/05/19 10/20/20 Spironolactone [Aldactone] 25 mg PO DAILY 08/05/19 10/20/20 Triamcinolone 0.1% Cream [Kenalog 1 applic TOP BID PRN 10/27/19 10/20/20 0.1% Cream] Lactobacillus Acidophilus 1 tab ORAL DAILY 01/28/20 10/20/20 [Probiotic Acidophilus] oxyCODONE [Roxicodone] 5 - 10 mg PO Q4HR MDD 8 tabs 02/06/20 10/20/20 Loratadine [Claritin] 10 mg PO DAILY PRN 06/16/20 10/20/20 Cyanocobalamin (Vitamin B-12) 1,000 mcg PO DAILY 10/20/20 10/20/20 [Vitamin B-12] Finasteride [Proscar] 5 mg PO DAILY 10/20/20 10/20/20 Ketotifen Fumarate [Alaway] 1 drops EACHEYE PRN PRN 10/20/20 10/20/20 Torsemide 20 mg PO DAILY 10/20/20 10/20/20 diphenhydrAMINE [Benadryl] 25 mg PO PRN PRN 10/20/20 10/20/20 Doxycycline Hyclate 100 mg PO BID 42 Days #84 tab 10/22/20 Thiamine HCl [Vitamin B-1] 100 mg PO DAILY #30 tablet 10/22/20 - PHYSICAL EXAM AT DISCHARGE General Appearance: positive: No acute distress, Alert. negative: Lethargic Eyes Bilateral: positive: Normal inspection, PERRL, No lid inflammation ENT: positive: ENT inspection nml, No signs of dehydration. negative: Purulent nasal drainage Neck: positive: Nml inspection, Trachea midline. negative: Thyromegaly, Tracheal deviation Respiratory: positive: Chest non-tender, No respiratory distress. negative: Wheezes, Rales Cardiovascular: positive: Regular rate & rhythm, No murmur. negative: Tachycardia, Bradycardia, Systolic murmur, Diastolic murmur Peripheral Pulses: positive: 2+ Abdomen: positive: Non-tender, Nml bowel sounds, No distention. negative: Tenderness Back: positive: Nml inspection Skin: positive: Color nml, Warm, Dry. negative: Cyanosis, Diaphoresis, Pallor Extremities: positive: Non-tender, Other (pt's left foot was covered by surgical wrap. Pt just have a procedure done at hospital.). negative: Calf tenderness Neurologic/Psychiatric: positive: Oriented x3, Motor nml, Sensation nml. negative: Weakness, Sensory loss, Facial droop, Slurred/abnml speech - LABS Result Diagrams: 10/22/20 05:10 10/22/20 05:10 - FOLLOW UP Follow Up: your fourth metatarsal head was debrided from the plantar ulcer with a curette and small bone rondure. your surgeon Dr. Benito will see you at his office on next week Sunday10/25/20. His office phone is [phone]. you are prescribed antibiotics for finishing of your treatment course. You may followup with your PCP in one to two weeks, followup with Dr. Benito at his office on next week Sunday. Should your symptoms return or worsen, you may present ER or call 911 for help. - TIME SPENT Time Spent in Discharge (Minutes): 30
[2020-10-22] MEDS: LORazepam 1 MG TABLET PO PRN (14:16)
== END 2020-10-22 14:48 | disposition home or self-care (01) | DRG 988 ==
LOC: MS2 15:46
PROVIDERS: ADMIT Specialist; ATTEND Nurse Practitioner Gerontology
PROC: 0QBP0ZZ Excision of Left Metatarsal, Open Approach (ICD-10-PCS; principal; 2020-10-22)
DX: L89.894 Pressure ulcer of other site, stage 4 (principal); L03.116 Cellulitis of left lower limb; C34.90 Malignant neoplasm of unspecified part of unspecified bronchus or lung; C79.31 Secondary malignant neoplasm of brain; I50.40 Unspecified combined systolic (congestive) and diastolic (congestive) heart failure; F11.20 Opioid dependence, uncomplicated; I13.0 Hypertensive heart and chronic kidney disease with heart failure and stage 1 through stage 4 chronic kidney disease, or unspecified chronic kidney disease; M86.671 Other chronic osteomyelitis, right ankle and foot; B95.61 Methicillin susceptible Staphylococcus aureus infection as the cause of diseases classified elsewhere; I11.0 Hypertensive heart disease with heart failure; G89.29 Other chronic pain; Z91.19 Patient's noncompliance with other medical treatment and regimen; I25.10 Atherosclerotic heart disease of native coronary artery without angina pectoris; I73.9 Peripheral vascular disease, unspecified; J44.9 Chronic obstructive pulmonary disease, unspecified; G40.909 Epilepsy, unspecified, not intractable, without status epilepticus; K21.9 Gastro-esophageal reflux disease without esophagitis; F17.210 Nicotine dependence, cigarettes, uncomplicated; F10.20 Alcohol dependence, uncomplicated; M54.9 Dorsalgia, unspecified; Z89.422 Acquired absence of other left toe(s); F03.90 Unspecified dementia, unspecified severity, without behavioral disturbance, psychotic disturbance, mood disturbance, and anxiety; K59.09 Other constipation; N40.1 Benign prostatic hyperplasia with lower urinary tract symptoms; N39.498 Other specified urinary incontinence; R35.0 Frequency of micturition; R35.1 Nocturia; Z79.899 Other long term (current) drug therapy; Z86.14 Personal history of Methicillin resistant Staphylococcus aureus infection; Z08 Encounter for follow-up examination after completed treatment for malignant neoplasm; Z85.89 Personal history of malignant neoplasm of other organs and systems; D64.9 Anemia, unspecified; N18.9 Chronic kidney disease, unspecified; Z86.2 Personal history of diseases of the blood and blood-forming organs and certain disorders involving the immune mechanism; Z89.412 Acquired absence of left great toe; B95.1 Streptococcus, group B, as the cause of diseases classified elsewhere; G62.89 Other specified polyneuropathies; M54.2 Cervicalgia
CPT/HCPCS: 11044; 36415; 73630; 73720; 80048; 80053; 80177; 83735; 85025; 85651; 86140; 87040; 87070; 87181; 87205; 94640; 99215; A9270; A9585; J1170; J3370; J7626; J8499; Q0162

== ENCOUNTER 2020-12-03 12:20 | Outpatient (CLI) | payer OTHER ==
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
== END 2020-12-03 12:21 | disposition home or self-care (01) ==
LOC: PC 12:20
PROVIDERS: ATTEND Nurse Practitioner Adult Health
DX: Z51.5 Encounter for palliative care (principal); G89.4 Chronic pain syndrome; G62.9 Polyneuropathy, unspecified; F41.9 Anxiety disorder, unspecified; F32.9 Major depressive disorder, single episode, unspecified; J44.9 Chronic obstructive pulmonary disease, unspecified; C34.92 Malignant neoplasm of unspecified part of left bronchus or lung; C34.91 Malignant neoplasm of unspecified part of right bronchus or lung; C79.31 Secondary malignant neoplasm of brain; F17.200 Nicotine dependence, unspecified, uncomplicated; Z99.81 Dependence on supplemental oxygen; Z79.891 Long term (current) use of opiate analgesic
CPT/HCPCS: 99350

== ENCOUNTER 2020-12-28 22:11 | Outpatient (CLI) | payer MEDICAID | END 2020-12-28 22:12 | disposition critical access hospital (66) | LOC: EMS 22:11 | DX: R07.9 Chest pain, unspecified (principal); R06.00 Dyspnea, unspecified | CPT/HCPCS: A0425; A0427; A0999 ==

== ENCOUNTER 2020-12-28 22:29 | Inpatient (IN) | payer MEDICAID, OTHER ==
[2020-12-28 23:12] LABS: BASOPHILS # (AUTO) 0.1 10^3/uL (0.0-0.1); BASOPHILS % (AUTO) 0.6 %; EOSINOPHILS # (AUTO) 0.4 10^3/uL (0.0-0.7); EOSINOPHILS % (AUTO) 4.1 %; HCT - HEMATOCRIT 33.1 % (42.0-52.0); HGB - HEMOGLOBIN 10.9 g/dL (14.0-18.0); LYMPHOCYTES % (AUTO) 11.1 %; MEAN CORPUSCULAR HEMOGLOBIN 26.2 pg (27.0-31.0); MEAN CORPUSCULAR HGB CONC 32.9 g/dL (32.0-36.0); MEAN CORPUSCULAR VOLUME 79.6 fL (80.0-94.0); MONOCYTES # (AUTO) 0.8 10^3/uL (0.0-1.0); MONOCYTES % (AUTO) 9.7 %; NEUTROPHILS # (AUTO) 6.3 10^3/uL (1.5-6.6); NEUTROPHILS % (AUTO) 74.1 %; PLT - PLATELET COUNT 153 10^3/uL (130-450); RED BLOOD COUNT 4.16 10^6/uL (4.70-6.10); RED CELL DISTRIBUTION WIDTH 18.8 % (12.0-15.0); WHITE BLOOD COUNT 8.5 x10^3/uL (4.8-10.8)
[2020-12-28 23:18] LABS: INR 1.5 (0.8-1.2); PT - PROTHROMBIN TIME 16.7 secs (9.9-12.6)
[2020-12-28 23:25] LABS: PARTIAL THROMBOPLASTIN TIME 28.1 secs (24.9-33.3)
[2020-12-28 23:42] LABS: ALBUMIN 3.9 g/dL (3.2-5.5); ALBUMIN/GLOBULIN RATIO 1.2 (1.0-2.2); ALKALINE PHOSPHATASE 82 IU/L (42-121); ALT ALANINE AMINOTRANSFERASE < 10 IU/L (10-60); AST ASPARTATE AMINOTRANSFERASE 17 IU/L (10-42); BILIRUBIN,TOTAL 0.7 mg/dL (0.2-1.0); BUN - BLOOD UREA NITROGEN 17 mg/dL (6-20); CALCIUM 8.4 mg/dL (8.5-10.3); CARBON DIOXIDE - CO2 25 mmol/L (21-32); CHLORIDE 90 mmol/L (101-111); CREATININE 1.3 mg/dL (0.6-1.2); ETOH - ETHANOL 41.4 mg/dL; GFR - MDRD 57 (>89); GLUCOSE 94 mg/dL (70-100); LIPASE 33 U/L (22-51); POTASSIUM 3.9 mmol/L (3.5-5.0); SODIUM 123 mmol/L (135-145); TOTAL PROTEIN 7.1 g/dL (6.7-8.2)
[2020-12-28] MEDS ORDERED: SODIUM CHLORIDE 0.9% 1,000 ML IV STA (23:51)
--- NOTE | 2020-12-29 01:37 | ED Physician Documentation ---
PD HPI CHEST PAIN - Stated complaint Stated Complaint: CP/SOA - Chief complaint Chief Complaint: Cardiac - History obtained from History obtained from: Patient, EMS - History of Present Illness Timing - onset: Enter time (19:00), Today Timing - onset during: Rest Timing - details: Abrupt onset Pain level max: 10 Pain level now: 8 Quality: Pain Location: Substernal Radiation: Neck, Left upper extremity, Right upper extremity, Other (radiates to both shoulder and both sides of his neck) Improved by: Nothing Worsened by: Movement Associated symptoms: Shortness of air, Cough Recently seen: Not recently seen - Additional information Additional information: BIBA. Patient c/o anterior chest pain that radiates to both shoulders, neck, and posterior aspect of neck and upper back, associated with shortness of breath and productive cough. Review of Systems Constitutional: denies: Fever, Chills, Sweats Cardiac: reports: Chest pain / pressure, Pedal edema. denies: Palpitations Respiratory: reports: Dyspnea, Cough. denies: Hemoptysis GI: denies: Abdominal Pain, Nausea, Vomiting : reports: Dysuria. denies: Frequency Musculoskeletal: reports: Extremity pain (BLE), Extremity swelling (BLE) Neurologic: reports: Generalized weakness. denies: Focal weakness, Numbness, Headache PD PAST MEDICAL HISTORY - Past Medical History Past Medical History: Yes Cardiovascular: Congestive heart failure, Hypertension, Coronary artery disease Respiratory: COPD, Shortness of breath, Other Neuro: Dementia, Headaches, Peripheral neuropathy, Seizure disorder, Other Endocrine/Autoimmune: None GI: GERD, Chronic constipation, Diverticulitis [employer] INS[employer]OR: None : Benign prostate hypertrophy, Incontinence, Nocturia, Frequency HEENT: Chronic vision loss Psych: Anxiety Musculoskeletal: Chronic back pain, Other Derm: Other - Past Surgical History Past Surgical History: Yes Ortho: Amputation Cardiovascular: Cardiac catheterization Neuro: Craniotomy, Gamma knife - Present Medications Home Medications: Ambulatory Orders Medication Instructions Recorded Confirmed Lorazepam [Ativan] 1 mg PO Q8HR PRN 09/23/15 12/29/20 Tamsulosin [Flomax] 0.4 mg PO DAILY 06/29/16 12/29/20 Lidocaine Ointment 5% [Xylocaine 1 applic TOP PRN PRN 08/20/17 12/29/20 Ointment 5%] Gabapentin [Neurontin] 1,600 mg PO BID 09/27/17 12/29/20 Levetiracetam [Keppra] 500 mg PO BID #30 tablet 11/23/17 12/29/20 Ondansetron Odt [Zofran Odt] 4 mg TL Q6H PRN #15 tablet 03/19/18 12/29/20 Albuterol Sulf [Ventolin Hfa 2 puffs INH Q4HR PRN 05/09/18 12/29/20 Inhaler] Melatonin 6 mg PO QPM PRN 05/09/18 12/29/20 Chlorhexidine Gluconate [Peridex] 30 ml PO BID PRN 12/18/18 12/29/20 Magnesium 500 mg PO DAILY 12/18/18 12/29/20 polyethylene glycoL 3350 [Miralax] 17 gm PO DAILY PRN 12/18/18 12/29/20 Budesonide/Formoterol Fumarate 2 puffs IH BID 12/20/18 12/29/20 [Symbicort 160-4.5 Mcg Inhaler] Montelukast [Singulair] 10 mg PO QPM #30 tablet 12/28/18 12/29/20 Ipratropium/Albuterol [Duoneb] 3 ml INH Q4HR PRN MDD hold no 02/15/19 12/29/20 nebulizzer Loperamide HCl [Loperamide] 2 mg PO QID PRN 02/23/19 12/29/20 Docusate Sodium 100 mg PO BID 05/13/19 12/29/20 Metoprolol Succinate 50 mg PO DAILY 08/05/19 12/29/20 Naloxone HCl [Narcan] 1 spr CHANCE ONCE PRN 08/05/19 12/29/20 Nystatin 5 ml PO TID PRN 08/05/19 12/29/20 Nystatin Cream [Mycostatin Cream] 1 applic TOP QPM 08/05/19 12/29/20 Spironolactone [Aldactone] 25 mg PO DAILY 08/05/19 12/29/20 Triamcinolone 0.1% Cream [Kenalog 1 applic TOP BID PRN 10/27/19 12/29/20 0.1% Cream] oxyCODONE [Roxicodone] 10 - 20 mg PO Q4HR MDD 8 tabs 02/06/20 12/29/20 Loratadine [Claritin] 10 mg PO DAILY 06/16/20 12/29/20 Finasteride [Proscar] 5 mg PO DAILY 10/20/20 12/06/20 Ketotifen Fumarate [Alaway] 1 drops EACHEYE PRN PRN 10/20/20 12/29/20 Torsemide 20 mg PO DAILY 10/20/20 12/29/20 diphenhydrAMINE [Benadryl] 12.5 - 25 mg PO PRN PRN 10/20/20 12/29/20 B Complx/C/Folic/Zinc/Cup [place]/E 1 tab PO DAILY 12/06/20 12/29/20 [[id number]-[id number] Tab] Omeprazole 40 mg PO DAILY 12/06/20 12/29/20 - Allergies Allergies/Adverse Reactions: Allergies Allergy/AdvReac Type Severity Reaction Status Date / Time BRONWYN Inhibitors Allergy Emesis Verified 12/28/20 22:39 clavulanic acid Allergy Emesis Verified 12/28/20 22:39 [From Augmentin] lisinopril Allergy "THROAT Verified 12/28/20 22:39 SWELLING" - Social History Does the pt smoke?: Yes Smoking Status: Current every day smoker Does the pt drink ETOH?: Yes Does the pt have substance abuse?: No - Immunizations Immunizations are current?: Yes - POLST Patient has POLST: No POLST Status: Full Code PD ED PE NORMAL - Vitals Vital signs reviewed: Yes - General General: Other (obese, sleepy but awakens to voice. repeatedly asks for pain medication, and says he needs stronger than his routine medications as this is more severe pain than he has had before) - HEENT HEENT: Moist mucous membranes - Neck Neck: Supple, no meningeal sign - Cardiac Cardiac: RRR, No murmur - Abdomen Abdomen: Soft, Non tender - Derm Derm: Normal color, Warm and dry PD ED PE EXPANDED - Respiratory Respiratory: Wheezing (bilateral expiratory), Rhonchi (bibasilar rhonchi), Decreased breath sounds (diffusely decreased breath sounds) - Extremities Extremities: Pedal edema bilateral, Other (bilateral chronic venous stasis changes) Results - Vitals Vitals: Vital Signs - 24 hr 12/28/20 12/29/20 12/29/20 22:36 00:29 02:15 Temperature 35.9 C L Heart Rate 86 84 89 Respiratory 22 16 22 Rate Blood Pressure 129/97 H 134/94 H O2 Saturation 99 12/29/20 12/29/20 12/29/20 02:35 02:40 03:38 Temperature Heart Rate 83 Respiratory 16 17 18 Rate Blood Pressure O2 Saturation 12/29/20 12/29/20 12/29/20 04:41 04:45 04:49 Temperature Heart Rate 84 81 Respiratory 16 16 Rate Blood Pressure 136/88 H 136/88 H O2 Saturation 90 L 86 L 93 12/29/20 05:27 Temperature 36.9 C Heart Rate 80 Respiratory 152 H Rate Blood Pressure O2 Saturation 97 Oxygen O2 Source [Without Activity] Room air O2 Source Nasal cannula Oxygen Flow Rate 4 - EKG (time done) No standard instances Rate: Rate (enter#) (84) Rhythm: NSR [place]: Normal Intervals: Prolonged SD, RBBB (incomplete) Ischemia: Non specific changes (V2-V5) Compare to prior EKG: Unchanged from prior EKG (the nonspecific ST changes were not on most recent EKG but are noted on other previous EKG (03/07/19 has similar pattern)) - Labs Labs: Laboratory Tests 12/28/20 12/28/20 12/28/20 23:05 23:05 23:05 WBC 8.5 RBC 4.16 L Hgb 10.9 L Hct 33.1 L MCV 79.6 L MCH 26.2 L MCHC 32.9 RDW 18.8 H Plt Count 153 MPV 9.0 Neut # (Auto) 6.3 Lymph # (Auto) 1.0 L Stanley # (Auto) 0.8 Eos # (Auto) 0.4 Baso # (Auto) 0.1 Absolute Nucleated RBC 0.00 Nucleated RBC % 0.0 PT 16.7 H INR 1.5 H APTT 28.1 Sodium 123 L Potassium 3.9 Chloride 90 L Carbon Dioxide 25 Anion Gap 8.0 BUN 17 Creatinine 1.3 H Estimated GFR (MDRD) 57 L Glucose 94 Lactic Acid Calcium 8.4 L Total Bilirubin 0.7 AST 17 ALT < 10 L Alkaline Phosphatase 82 Troponin I High Sens B-Natriuretic Peptide Total Protein 7.1 Albumin 3.9 Globulin 3.2 Albumin/Globulin Ratio 1.2 Lipase 33 Nasal Adenovirus (PCR) Nasal B. parapertussis DNA (PCR) Nasal Coronavir 229E PCR Nasal Coronavir HKU1 PCR Nasal Coronavir NL63 PCR Nasal Coronavir OC43 PCR Nasal Enterovir/Rhinovir PCR Nasal Influenza B PCR Nasal Influenza A PCR Nasal Parainfluen 1 PCR Nasal Parainfluen 2 PCR Nasal Parainfluen 3 PCR Nasal Parainfluen 4 PCR Nasal RSV (PCR) Nasal B.pertussis DNA PCR Nasal C.pneumoniae (PCR) Chance Human Metapneumo PCR Nasal M.pneumoniae (PCR) Nasal SARS-CoV-2 (PCR) Ethyl Alcohol 41.4 12/28/20 12/29/20 12/29/20 23:05 02:10 02:15 WBC RBC Hgb Hct MCV MCH MCHC RDW Plt Count MPV Neut # (Auto) Lymph # (Auto) Stanley # (Auto) Eos # (Auto) Baso # (Auto) Absolute Nucleated RBC Nucleated RBC % PT INR APTT Sodium Potassium Chloride Carbon Dioxide Anion Gap BUN Creatinine Estimated GFR (MDRD) Glucose Lactic Acid Calcium Total Bilirubin AST ALT Alkaline Phosphatase Troponin I High Sens 6.9 B-Natriuretic Peptide 624 H Total Protein Albumin Globulin Albumin/Globulin Ratio Lipase Nasal Adenovirus (PCR) NOT DETECTED Nasal B. parapertussis DNA (PCR) NOT DETECTED Nasal Coronavir 229E PCR NOT DETECTED Nasal Coronavir HKU1 PCR NOT DETECTED Nasal Coronavir NL63 PCR NOT DETECTED Nasal Coronavir OC43 PCR NOT DETECTED Nasal Enterovir/Rhinovir PCR NOT DETECTED Nasal Influenza B PCR NOT DETECTED Nasal Influenza A PCR NOT DETECTED Nasal Parainfluen 1 PCR NOT DETECTED Nasal Parainfluen 2 PCR NOT DETECTED Nasal Parainfluen 3 PCR NOT DETECTED Nasal Parainfluen 4 PCR NOT DETECTED Nasal RSV (PCR) NOT DETECTED Nasal B.pertussis DNA PCR NOT DETECTED Nasal C.pneumoniae (PCR) NOT DETECTED Chance Human Metapneumo PCR NOT DETECTED Nasal M.pneumoniae (PCR) NOT DETECTED Nasal SARS-CoV-2 (PCR) NOT DETECTED Ethyl Alcohol 12/29/20 02:15 WBC RBC Hgb Hct MCV MCH MCHC RDW Plt Count MPV Neut # (Auto) Lymph # (Auto) Stanley # (Auto) Eos # (Auto) Baso # (Auto) Absolute Nucleated RBC Nucleated RBC % PT INR APTT Sodium Potassium Chloride Carbon Dioxide Anion Gap BUN Creatinine Estimated GFR (MDRD) Glucose Lactic Acid 1.0 Calcium Total Bilirubin AST ALT Alkaline Phosphatase Troponin I High Sens B-Natriuretic Peptide Total Protein Albumin Globulin Albumin/Globulin Ratio Lipase Nasal Adenovirus (PCR) Nasal B. parapertussis DNA (PCR) Nasal Coronavir 229E PCR Nasal Coronavir HKU1 PCR Nasal Coronavir NL63 PCR Nasal Coronavir OC43 PCR Nasal Enterovir/Rhinovir PCR Nasal Influenza B PCR Nasal Influenza A PCR Nasal Parainfluen 1 PCR Nasal Parainfluen 2 PCR Nasal Parainfluen 3 PCR Nasal Parainfluen 4 PCR Nasal RSV (PCR) Nasal B.pertussis DNA PCR Nasal C.pneumoniae (PCR) Chance Human Metapneumo PCR Nasal M.pneumoniae (PCR) Nasal SARS-CoV-2 (PCR) Ethyl Alcohol - Rads (name of study) cxr Radiology: Prelim report reviewed, See rad report CT chest angio Radiology: Prelim report reviewed, See rad report PD MEDICAL DECISION MAKING - ED course Complexity details: reviewed old records, reviewed results, re-evaluated patient, considered differential, d/w patient ED course: patient says he uses supplemental oxygen intermittently but no higher than "one and a half". During ED stay his pulse ox drops as low as mid-80s on 4 liters NC after duoneb, albuterol, PO prednisone. On reevaluation after tests resulted, he is again asleep, awakens easily and asks for more pain medication (his total dose of oxycodone during ED stay is no more than his usual outpatient dosing). he is noted to be hyponatremic but given his significant peripheral edema, IV NS given 150cc/hour (he has been hyponatremic on previous visits). There is question of worsening right-sided infiltrate on both cxr and CT chest and thus he is given IV rocephin and zithromax (CT interpretation by radiologist as no pulmonary emboli, "emphysema with trace pleural effusions. right perihilar airspace consolidation may represent pneumonia. dependent densities within the left upper lobe and bilateral lower lobes could be atelectatic or an element of edema"). d/w Dr. [place], will admit to hospitalist service Departure - Departure Disposition: 66 [facility] DC/Xfer Clinical Impression: Hypoxia Chest pain Qualifiers: Chest pain type: unspecified Qualified Code(s): R07.9 - Chest pain, unspecified Pneumonia Qualifiers: Pneumonia type: due to unspecified organism Laterality: right Lung location: middle lobe of lung Qualified Code(s): J18.9 - Pneumonia, unspecified organism Discharge Date/Time: 12/29/20 06:25
[2020-12-29] MEDS ORDERED: IPRATROPIUM/ALBUTEROL 3 ML NEB INH STA (01:59)
[2020-12-29] MEDS ORDERED: oxyCODONE 5 MG TABLET PO STA ×2 (02:00→06:35)
[2020-12-29] MEDS ORDERED: predniSONE 20 MG TABLET PO STA (02:01)
[2020-12-29] MEDS ORDERED: IOVERSOL 320 100 ML VIAL IVP ONE ×2 (02:33→03:46)
[2020-12-29 03:07] LABS: B. PARAPERTUSSIS- RESP PCR PAN NOT DETECTED; B. PERTUSSIS- RESP PCR PANEL NOT DETECTED; C. PNEUMONIAE- RESP PCR PANEL NOT DETECTED; CORONAVIRUS 229E-RESP PCR NOT DETECTED; CORONAVIRUS HKU1-RESP PCR NOT DETECTED; CORONAVIRUS NL63-RESP PCR NOT DETECTED; CORONAVIRUS OC43-RESP PCR NOT DETECTED; HUMAN METAPNEUMOVIRUS NOT DETECTED; INFLUENZA A- RESP PCR PANEL NOT DETECTED; INFLUENZA B - RESP PCR PANEL NOT DETECTED; M. PNEUMONIAE- RESP PCR PANEL NOT DETECTED; PARAINFLUENZA VIRUS 1 NOT DETECTED; PARAINFLUENZA VIRUS 2 NOT DETECTED; PARAINFLUENZA VIRUS 3 NOT DETECTED; PARAINFLUENZA VIRUS 4 NOT DETECTED; RHINOVIRUS/ENTEROVIRUS NOT DETECTED; RSV- RESP PCR PANEL NOT DETECTED; SARS-CoV-2 -RESP PCR PANEL NOT DETECTED
[2020-12-29] MEDS ORDERED: ALBUTEROL NEB 2.5 MG/3 ML INH STA (04:55)
[2020-12-29] MEDS ORDERED: cefTRIAXone 1 GM in SODIUM CHLORIDE 0.9% MINIBAG 100 ML IV STA (04:56)
[2020-12-29] MEDS ORDERED: AZITHROMYCIN INJ 500 MG in SODIUM CHLORIDE 0.9% 250 ML IV STA (04:56)
[2020-12-29] MEDS ORDERED: cefTRIAXone 1 GM VIAL ONE (05:17)
[2020-12-29] MEDS ORDERED: ACETAMINOPHEN 325 MG TABLET PO PRN (05:48)
[2020-12-29] MEDS ORDERED: ONDANSETRON 4 MG/2 ML VIAL IVP PRN (05:48)
[2020-12-29] MEDS ORDERED: ONDANSETRON ODT 4 MG TABLET TL PRN (05:48)
[2020-12-29] MEDS ORDERED: NON FORMULARY MED (Melatonin [Melatonin] 3 MG Tablet) PO PRN (05:52)
[2020-12-29] MEDS ORDERED: LOPERAMIDE 2 MG CAPSULE PO PRN (05:52)
[2020-12-29] MEDS ORDERED: NYSTATIN 500000 UNITS/5 ML UDC PO PRN (05:52)
[2020-12-29] MEDS ORDERED: ALBUTEROL NEB 2.5 MG/3 ML INH PRN (05:55)
[2020-12-29] MEDS ORDERED: SODIUM CHLORIDE 0.9% 1,000 ML IV SCH (06:00)
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
[2020-12-29] MEDS: methylPREDNISolone SUCCINATE 40 MG/ML VIAL IVP SCH ×3 (07:46→21:57)
[2020-12-29] MEDS: SODIUM CHLORIDE FLUSH 0.9% 10 ML SYRINGE IVP SCH ×2 (08:00→17:47)
[2020-12-29] MEDS: oxyCODONE 5 MG TABLET PO PRN ×4 (08:00→20:19)
[2020-12-29] MEDS: MAGNESIUM OXIDE 400 MG TABLET PO SCH (08:01)
[2020-12-29] MEDS: LORazepam 1 MG TABLET PO PRN ×2 (08:01→20:19)
[2020-12-29] MEDS: ENOXAPARIN 40 MG/0.4 ML SYRINGE SUBQ SCH (08:13)
[2020-12-29] MEDS: levETIRAcetam 250 MG TABLET PO SCH ×2 (08:13→21:57)
[2020-12-29] MEDS: METOPROLOL SUCCINATE 50 MG TABLET PO SCH (08:13)
[2020-12-29] MEDS: TAMSULOSIN 0.4 MG CAPSULE PO SCH (08:13)
[2020-12-29] MEDS: GABAPENTIN 400 MG CAPSULE PO SCH ×2 (08:13→21:57)
--- NOTE | 2020-12-29 08:13 | CT Report ---
PROCEDURE: ANGIO CHEST W/WO INDICATIONS: chest pain, dyspnea CONTRAST: IV CONTRAST: Optiray 320 ml: 80 PO CONTRAST: *NO PO CONTRAST TECHNIQUE: After the administration of intravenous contrast, 2 mm thick sections acquired from the pulmonary api devante to the posterior costophrenic angles. 3-dimensional maximum intensity projection (MIP) coronal a nd sagittal reformats were then acquired through the thorax. For radiation dose reduction, the follow ing was used: automated exposure control, adjustment of mA and/or kV according to patient size. COMPARISON: FINDINGS: Image quality: Excellent. Pulmonary arteries: Pulmonary arteries are normal in size, and demonstrate no intraluminal filling d efects to suggest central pulmonary embolism. Lungs and pleura: Lungs are abnormal with what appears to be centrilobular emphysema and focal pneum onia within the posterior left upper lobe and the posterior and lateral right upper lobe. A small to moderate right pleural effusion is present.. No pleural effusions or pneumothorax. Central and sallie pheral airways are patent. Mediastinum: Heart size is normal, without pericardial effusion. No mediastinal or hilar adenopathy . Thoracic aorta is normal in caliber and enhancement. Esophagus is normal in caliber, without hiat al hernia. Bones and chest wall: No suspicious bony lesions. Ribs and thoracic spine appear intact throughout. No axillary or supraclavicular adenopathy. The thyroid is normal in size and there are no incident al findings. Abdomen: Visualized upper abdominal solid organs appear normal in the early arterial phase of enhanc ement. IMPRESSION: No pulmonary embolus found. COPD. Bilateral pneumonia as discussed. Small to moderate right pleural e ffusion. This effusion does not appear to represent evidence of empyema by appearance. Reviewed by: Kendell Merino MD on 12/29/2020 8:11 AM PDT Approved by: Kendell Merino MD on 12/29/2020 8:11 AM PDT Station ID: [id number]
--- NOTE | 2020-12-29 08:19 | XRAY Report ---
PROCEDURE: Chest 1 View X-Ray INDICATIONS: chest pain TECHNIQUE: One view of the chest was acquired. COMPARISON: Comparison chest CT 10/13/2020 FINDINGS: Surgical changes and devices: Port-A-Cath in normal position from left-sided approach.. Lungs and pleura: No pleural effusions or pneumothorax. Lungs are mildly edematous. Mediastinum: Mediastinal contours appear normal. Heart size is globally enlarged. Bones and chest wall: No suspicious bony lesions. Overlying soft tissues appear unremarkable. IMPRESSION: Mild acute exacerbation of CHF is suspected. Port-A-Cath in normal position. Cardiomegaly and mild pu lmonary edema. No pleural effusion found. Reviewed by: Kendell Merino MD on 12/29/2020 8:17 AM PDT Approved by: Kendell Merino MD on 12/29/2020 8:17 AM PDT Station ID: [id number]
[2020-12-29 08:37] LABS: BASOPHILS % (AUTO) 0.1 %; EOSINOPHILS % (AUTO) 0.1 %; HCT - HEMATOCRIT 34.6 % (42.0-52.0); HGB - HEMOGLOBIN 11.3 g/dL (14.0-18.0); LYMPHOCYTES # (AUTO) 0.2 10^3/uL (1.5-3.5); LYMPHOCYTES % (AUTO) 2.8 %; MEAN CORPUSCULAR HEMOGLOBIN 25.7 pg (27.0-31.0); MEAN CORPUSCULAR HGB CONC 32.7 g/dL (32.0-36.0); MEAN CORPUSCULAR VOLUME 78.8 fL (80.0-94.0); MEAN PLATELET VOLUME 9.5 fL (7.4-11.4); MONOCYTES # (AUTO) 0.4 10^3/uL (0.0-1.0); NEUTROPHILS # (AUTO) 7.4 10^3/uL (1.5-6.6); NEUTROPHILS % (AUTO) 91.3 %; PLT - PLATELET COUNT 145 10^3/uL (130-450); RED BLOOD COUNT 4.39 10^6/uL (4.70-6.10); RED CELL DISTRIBUTION WIDTH 18.6 % (12.0-15.0); WHITE BLOOD COUNT 8.2 x10^3/uL (4.8-10.8)
[2020-12-29 08:46] LABS: CALCIUM 8.3 mg/dL (8.5-10.3); CREATININE 1.1 mg/dL (0.6-1.2); POTASSIUM 4.5 mmol/L (3.5-5.0)
[2020-12-29] MEDS ORDERED: TORSEMIDE 20 MG TABLET PO SCH (09:00)
[2020-12-29] MEDS: BENZOCAINE/MENTHOL LOZENGE MM PRN ×2 (10:40→16:29)
[2020-12-29] MEDS: IPRATROPIUM/ALBUTEROL 3 ML NEB INH PRN ×2 (10:51→20:38)
--- NOTE | 2020-12-29 13:14 | PHARMACY PROGRESS NOTE ---
- Best Possible Medication History Admit Date and Time: 12/29/20 0548 Processed by: Nursing Medication History completed: Yes As the person ultimately responsible for medication therapy, providers are able to order a medication from an existing home medication list in [facility] via the "Reconcile Routine" prior to Confirmation of that medication by computer support analyst. Such practice is discouraged except when the physician, in their clinical judgment, deems that a medical need exists for a medication without regard to previous use.
[2020-12-29] MEDS ORDERED: FUROSEMIDE 40 MG/4 ML VIAL IVP STA (18:10)
[2020-12-29 20:03] LABS: CALCIUM 9.2 mg/dL (8.5-10.3)
[2020-12-29] MEDS: NYSTATIN CREAM 15 GM TUBE TOP SCH (21:57)
[2020-12-29] MEDS: MONTELUKAST 10 MG TABLET PO SCH (21:57)
[2020-12-30] MEDS: LIDOCAINE OINTMENT 5% 35.44 GM TUBE TOP SCH ×5 (00:28→20:15)
[2020-12-30] MEDS: oxyCODONE 5 MG TABLET PO PRN ×5 (00:29→19:19)
[2020-12-30] MEDS: SODIUM CHLORIDE FLUSH 0.9% 10 ML SYRINGE IVP SCH ×3 (00:34→16:41)
[2020-12-30] MEDS: SODIUM CHLORIDE FLUSH 0.9% 10 ML SYRINGE IVP PRN ×3 (00:34→13:28)
[2020-12-30] MEDS ORDERED: traZODone 50 MG TABLET PO ONE (00:58)
[2020-12-30] MEDS: NICOTINE 7 MG PATCH TOP SCH ×2 (01:42→08:23)
[2020-12-30 05:47] LABS: BASOPHILS % (AUTO) 0.1 %; HCT - HEMATOCRIT 39.1 % (42.0-52.0); HGB - HEMOGLOBIN 12.6 g/dL (14.0-18.0); LYMPHOCYTES # (AUTO) 0.4 10^3/uL (1.5-3.5); MEAN CORPUSCULAR HEMOGLOBIN 25.5 pg (27.0-31.0); MEAN CORPUSCULAR HGB CONC 32.2 g/dL (32.0-36.0); MEAN CORPUSCULAR VOLUME 79.1 fL (80.0-94.0); MEAN PLATELET VOLUME 9.8 fL (7.4-11.4); MONOCYTES # (AUTO) 0.7 10^3/uL (0.0-1.0); MONOCYTES % (AUTO) 5.7 %; NEUTROPHILS # (AUTO) 11.3 10^3/uL (1.5-6.6); NEUTROPHILS % (AUTO) 90.6 %; PLT - PLATELET COUNT 175 10^3/uL (130-450); RED BLOOD COUNT 4.94 10^6/uL (4.70-6.10); RED CELL DISTRIBUTION WIDTH 18.8 % (12.0-15.0); WHITE BLOOD COUNT 12.5 x10^3/uL (4.8-10.8)
[2020-12-30 05:48] LABS: CALCIUM 9.6 mg/dL (8.5-10.3); CREATININE 1.1 mg/dL (0.6-1.2); MAGNESIUM 2.3 mg/dL (1.7-2.8); POTASSIUM 3.7 mmol/L (3.5-5.0)
[2020-12-30] MEDS: methylPREDNISolone SUCCINATE 40 MG/ML VIAL IVP SCH (06:00)
[2020-12-30] MEDS ORDERED: SODIUM CHLORIDE FLUSH 0.9% 10 ML SYRINGE IVP PRN (06:08)
--- NOTE | 2020-12-30 07:32 | PROVIDER PROGRESS NOTE ---
Subjective - Prog Note Date Prog Note Date: 12/30/20 - Subjective Subjective: Reports feeling much better today. Still feels short of breath and continues to have a cough. Still feels he has slight chest pain at the sternum but this is minimal and significantly improved. Current Medications - Current Medications Current Medications: Active Medications Acetaminophen (Acetaminophen 325 Mg Tablet) 650 mg PO Q4HR PRN PRN Reason: Pain 1 to 4 Albuterol (Albuterol Neb 2.5 Mg/3 Ml) 2.5 mg INH RTQ4H PRN PRN Reason: Wheezing Albuterol/Ipratropium (Ipratropium/Albuterol 3 Ml Neb) 3 ml INH Q4HR PRN PRN Reason: Shortness of Air/Wheezing Last Admin: 12/29/20 20:38 Dose: 3 ml Documented by: Alcohol (Ethyl Alcohol 62% Swab Ampule) 1 amp CHANCE BID COUNTS INCLUDE 234 BEDS AT THE [facility] Last Admin: 12/30/20 09:08 Dose: 1 amp Documented by: Enoxaparin Sodium (Enoxaparin 40 Mg/0.4 Ml Syringe) 40 mg SUBQ DAILY COUNTS INCLUDE 234 BEDS AT THE [facility] Last Admin: 12/30/20 08:24 Dose: Not Given Documented by: Finasteride (Finasteride 5 Mg Tablet) 5 mg PO DAILY COUNTS INCLUDE 234 BEDS AT THE [facility] Last Admin: 12/30/20 08:16 Dose: 5 mg Documented by: Gabapentin (Gabapentin 400 Mg Capsule) 1,600 mg PO BID COUNTS INCLUDE 234 BEDS AT THE [facility] Last Admin: 12/30/20 08:14 Dose: 1,600 mg Documented by: Heparin Sodium (Beef Lung) (Heparin Flush 50 Units/5 Ml Syringe) 30 - 50 unit IVP PRN PRN PRN Reason: Port Protocol (<24 hours) Last Admin: 12/30/20 08:23 Dose: 50 unit Documented by: Azithromycin 500 mg/ Sodium (Chloride) 250 mls @ 250 mls/hr IV DAILY COUNTS INCLUDE 234 BEDS AT THE [facility] Stop: 12/31/20 09:59 Last Infusion: 12/30/20 09:30 Dose: Infused Documented by: Ceftriaxone Sodium 1 gm/ (Sodium Chloride) 100 mls @ 200 mls/hr IV DAILY COUNTS INCLUDE 234 BEDS AT THE [facility] Stop: 01/02/21 09:29 Last Infusion: 12/30/20 10:36 Dose: Infused Documented by: Levetiracetam (Levetiracetam 250 Mg Tablet) 500 mg PO BID COUNTS INCLUDE 234 BEDS AT THE [facility] Last Admin: 12/30/20 08:14 Dose: 500 mg Documented by: Lidocaine (Lidocaine Ointment 5% 35.44 Gm Tube) 1 applic TOP QID COUNTS INCLUDE 234 BEDS AT THE [facility] Last Admin: 12/30/20 08:24 Dose: 1 applic Documented by: Loperamide HCl (Loperamide 2 Mg Capsule) 2 mg PO QID PRN PRN Reason: LOOSE STOOLS Lorazepam (Lorazepam 1 Mg Tablet) 1 mg PO Q8HR PRN PRN Reason: Anxiety Last Admin: 12/30/20 08:16 Dose: 1 mg Documented by: Magnesium Oxide (Magnesium Oxide 400 Mg Tablet) 400 mg PO DAILYWM COUNTS INCLUDE 234 BEDS AT THE [facility] Last Admin: 12/30/20 08:12 Dose: 400 mg Documented by: Methylprednisolone (Methylprednisolone Succinate 40 Mg/Ml Vial) 40 mg IVP TID COUNTS INCLUDE 234 BEDS AT THE [facility] Last Admin: 12/30/20 06:00 Dose: 40 mg Documented by: Metoprolol Succinate (Metoprolol Succinate 50 Mg Tablet) 50 mg PO DAILY COUNTS INCLUDE 234 BEDS AT THE [facility] Last Admin: 12/30/20 08:21 Dose: 50 mg Documented by: Montelukast Sodium (Montelukast 10 Mg Tablet) 10 mg PO QPM COUNTS INCLUDE 234 BEDS AT THE [facility] Last Admin: 12/29/20 21:57 Dose: 10 mg Documented by: Nicotine (Nicotine 7 Mg Patch) 1 patch TOP DAILY COUNTS INCLUDE 234 BEDS AT THE [facility] Last Admin: 12/30/20 08:23 Dose: 1 patch Documented by: Nystatin (Nystatin 369246 Units/5 Ml Udc) 5 ml PO TID PRN PRN Reason: PER PHYSICIAN ORDER Nystatin (Nystatin Cream 15 Gm Tube) 1 applic TOP QPM COUNTS INCLUDE 234 BEDS AT THE [facility] Last Admin: 12/29/20 21:57 Dose: 1 applic Documented by: Ondansetron HCl (Ondansetron Odt 4 Mg Tablet) 4 mg TL Q6HR PRN PRN Reason: Nausea / Vomiting Last Admin: 12/30/20 08:44 Dose: 4 mg Documented by: Ondansetron HCl (Ondansetron 4 Mg/2 Ml Vial) 4 mg IVP Q6HR PRN PRN Reason: Nausea / Vomiting Oxycodone HCl (Oxycodone 5 Mg Tablet) 5 mg PO Q4HR PRN PRN Reason: Pain 5 to 7 Last Admin: 12/30/20 08:17 Dose: 5 mg Documented by: Sodium Chloride (Sodium Chloride Flush 0.9% 10 Ml Syringe) 10 ml IVP PRN PRN PRN Reason: NEEDED PER PROVIDER ORDERS Last Admin: 12/30/20 06:00 Dose: 10 ml Documented by: Sodium Chloride (Sodium Chloride Flush 0.9% 10 Ml Syringe) 10 ml IVP 0100,0900,1700 COUNTS INCLUDE 234 BEDS AT THE [facility] Last Admin: 12/30/20 08:25 Dose: 10 ml Documented by: Sodium Chloride (Sodium Chloride Flush 0.9% 10 Ml Syringe) 20 ml IVP PRN PRN PRN Reason: After Blood Draw Tamsulosin HCl (Tamsulosin 0.4 Mg Capsule) 0.4 mg PO DAILY COUNTS INCLUDE 234 BEDS AT THE [facility] Last Admin: 12/30/20 08:14 Dose: 0.4 mg Documented by: Throat Lozenges (Benzocaine/Menthol Lozenge) 1 lozenge MM Q2HR PRN PRN Reason: Throat pain Last Admin: 12/29/20 16:29 Dose: 1 lozenge Documented by: Triamcinolone Acetonide (Triamcinolone 0.1% Cream 15 Gm Tube) 1 applic TOP BID PRN PRN Reason: rash Lorazepam [Ativan] 1 mg PO Q8HR PRN 09/23/15 Tamsulosin [Flomax] 0.4 mg PO DAILY 06/29/16 Lidocaine Ointment 5% [Xylocaine Ointment 5%] 1 applic TOP PRN PRN 08/20/17 Gabapentin [Neurontin] 1,600 mg PO BID 09/27/17 Albuterol Sulf [Ventolin Hfa Inhaler] 2 puffs INH Q4HR PRN 05/09/18 Melatonin 6 mg PO QPM PRN 05/09/18 Chlorhexidine Gluconate [Peridex] 30 ml PO BID PRN 12/18/18 Magnesium 500 mg PO DAILY 12/18/18 polyethylene glycoL 3350 [Miralax] 17 gm PO DAILY PRN 12/18/18 Budesonide/Formoterol Fumarate [Symbicort 160-4.5 Mcg Inhaler] 2 puffs IH BID 12/20/18 Ipratropium/Albuterol [Duoneb] 3 ml INH Q4HR PRN MDD hold no nebulizzer 02/15/19 Loperamide HCl [Loperamide] 2 mg PO QID PRN 02/23/19 Docusate Sodium 100 mg PO BID 05/13/19 Metoprolol Succinate 50 mg PO DAILY 08/05/19 Naloxone HCl [Narcan] 1 spr CHANCE ONCE PRN 08/05/19 Nystatin 5 ml PO TID PRN 08/05/19 Nystatin Cream [Mycostatin Cream] 1 applic TOP QPM 08/05/19 Spironolactone [Aldactone] 25 mg PO DAILY 08/05/19 Triamcinolone 0.1% Cream [Kenalog 0.1% Cream] 1 applic TOP BID PRN 10/27/19 oxyCODONE [Roxicodone] 10 - 20 mg PO Q4HR MDD 8 tabs 02/06/20 Loratadine [Claritin] 10 mg PO DAILY 06/16/20 Finasteride [Proscar] 5 mg PO DAILY 10/20/20 Ketotifen Fumarate [Alaway] 1 drops EACHEYE PRN PRN 10/20/20 Torsemide 20 mg PO DAILY 10/20/20 diphenhydrAMINE [Benadryl] 12.5 - 25 mg PO PRN PRN 10/20/20 B Complx/C/Folic/Zinc/Cup Barkley/E [Cwqhsylqdnhq-Tswq-Pyzixt Tab] 1 tab PO DAILY 12/06/20 Omeprazole 40 mg PO DAILY 12/06/20 Objective - Vital Signs/Intake & Output Reviewed Vital Signs: Yes Vital Signs: Vital Signs x48h Temp Pulse Resp BP Pulse Ox 12/30/20 07:26 37 C 95 20 131/83 H 92 12/30/20 05:23 36.6 C 104 H 20 142/82 H 90 L 12/30/20 00:00 36.6 C 101 H 20 136/82 H 91 L Intake & Output: Intake & Output 12/27/20 12/28/20 12/29/20 12/30/20 23:59 23:59 23:59 23:59 Intake Total 2210 400 Output Total 3595 0622 Balance -9053 -5110 - Objective General Appearance: positive: No acute distress, Alert Eyes Bilateral: positive: Normal inspection, Conjunctivae nml ENT: positive: ENT inspection nml, Other (Nasal cannula in place.) Neck: positive: Nml inspection Respiratory: positive: Wheezes (Expiratory wheezes throughout all lung valentino.). negative: Rales, Rhonchi Cardiovascular: positive: Regular rate & rhythm, No murmur. negative: Tachy cardia Abdomen: positive: Non-tender, No distention. negative: Tenderness Skin: positive: Warm, Dry Extremities: positive: Pedal edema (+1 pitting edema bilateral lower extremities) Neurologic/Psychiatric: negative: Disoriented to person, Disoriented to place - Lab Results Fish Bones: 12/30/20 04:21 12/30/20 04:21 Other Labs: Lab Results x24hrs 12/30/20 12/30/20 12/29/20 Range/Units 04:21 04:21 19:50 WBC 12.5 H (4.8-10.8) x10^3/uL RBC 4.94 (4.70-6.10) 10^6/uL Hgb 12.6 L (14.0-18.0) g/dL Hct 39.1 L (42.0-52.0) % MCV 79.1 L (80.0-94.0) fL MCH 25.5 L (27.0-31.0) pg MCHC 32.2 (32.0-36.0) g/dL RDW 18.8 H (12.0-15.0) % Plt Count 175 (130-450) 10^3/uL MPV 9.8 (7.4-11.4) fL Neut # (Auto) 11.3 H (1.5-6.6) 10^3/uL Lymph # (Auto) 0.4 L (1.5-3.5) 10^3/uL [place] # (Auto) 0.7 (0.0-1.0) 10^3/uL Eos # (Auto) 0.0 (0.0-0.7) 10^3/uL Baso # (Auto) 0.0 (0.0-0.1) 10^3/uL Absolute Nucleated RBC 0.00 x10^3/uL Nucleated RBC % 0.0 /100WBC Sodium 134 L 131 L (135-145) mmol/L Potassium 3.7 4.0 (3.5-5.0) mmol/L Chloride 96 L 96 L (101-111) mmol/L Carbon Dioxide 26 22 (21-32) mmol/L Anion Gap 12.0 13.0 (6-13) BUN 17 15 (6-20) mg/dL Creatinine 1.1 1.0 (0.6-1.2) mg/dL Estimated GFR (MDRD) 69 L 77 L (>89) Glucose 151 H 146 H (70-100) mg/dL Calcium 9.6 9.2 (8.5-10.3) mg/dL Magnesium 2.3 (1.7-2.8) mg/dL Troponin I High Sens (2.3-19.7) ng/L 12/29/20 12/29/20 12/29/20 Range/Units 12:08 08:30 08:30 WBC 8.2 (4.8-10.8) x10^3/uL RBC 4.39 L (4.70-6.10) 10^6/uL Hgb 11.3 L (14.0-18.0) g/dL Hct 34.6 L (42.0-52.0) % MCV 78.8 L (80.0-94.0) fL MCH 25.7 L (27.0-31.0) pg MCHC 32.7 (32.0-36.0) g/dL RDW 18.6 H (12.0-15.0) % Plt Count 145 (130-450) 10^3/uL MPV 9.5 (7.4-11.4) fL Neut # (Auto) 7.4 H (1.5-6.6) 10^3/uL Lymph # (Auto) 0.2 L (1.5-3.5) 10^3/uL [place] # (Auto) 0.4 (0.0-1.0) 10^3/uL Eos # (Auto) 0.0 (0.0-0.7) 10^3/uL Baso # (Auto) 0.0 (0.0-0.1) 10^3/uL Absolute Nucleated RBC 0.00 x10^3/uL Nucleated RBC % 0.0 /100WBC Sodium 129 L (135-145) mmol/L Potassium 4.5 (3.5-5.0) mmol/L Chloride 93 L (101-111) mmol/L Carbon Dioxide 23 (21-32) mmol/L Anion Gap 13.0 (6-13) BUN 15 (6-20) mg/dL Creatinine 1.1 (0.6-1.2) mg/dL Estimated GFR (MDRD) 69 L (>89) Glucose 118 H (70-100) mg/dL Calcium 8.3 L (8.5-10.3) mg/dL Magnesium (1.7-2.8) mg/dL Troponin I High Sens 7.9 (2.3-19.7) ng/L ABX Reporting Has patient been on IV antibiotics over the past 48 hours?: Yes Assessment/Plan - Problem List (1) COPD exacerbation Impression: This is improved. He still has wheezing but feels less dyspneic. He is now duane n to 1 L of oxygen. Chest x-ray was concerning for possible pneumonia or heart failure. He is on antibiotics with ceftriaxone and azithromycin. Will decrease tramadol to 40 mg IV twice daily and look to switch to p.o. prednisone tomorrow. Continue duo nebs and albuterol as needed. He may need oxygen on discharge. (2) Community acquired pneumonia Impression: Chest x-ray was concerning for early pneumonia. Given he has a COPD exacerbation, we will place him on ceftriaxone and azithromycin. Today is day 2 of treatment. We will look to switch to p.o. antibiotics tomorrow as he improves. (3) Acute on chronic heart failure Impression: His BNP was elevated and we could not rule out pulmonary edema based off of imaging. He also has lower extremity edema. He did respond well to Lasix yesterday and so we will give another dose of Lasix 40 mg IV. We will look to place him on oral diuretics tomorrow. Echocardiogram has been ordered. Strict I's and O's and daily weights. (4) Chest pain Impression: Low suspicion to be ACS. Suspect this is likely secondary to the pneumonia or heart failure as it appears to be pleuritic and reproducible. EKG was nonischemic and his troponins have been normal. We will continue to the heart failure and pneumonia as mentioned above Qualifiers: Chest pain type: unspecified Qualified Code(s): R07.9 - Chest pain, unspecified (5) Hx of seizure disorder Impression: Continue Keppra. (6) Metastatic non-small cell lung cancer Impression: He has stage IV lung cancer with history of metastasis to the brain. He has been off of treatment since 2018. Continue to monitor with outpatient follow-up oncology. (7) Chronic pain Impression: Stable. Continue home oxycodone. Qualifiers: Chronic pain type: other chronic pain Qualified Code(s): G89.29 - Other chronic pain (8) BPH (benign prostatic hyperplasia) Impression: Continue Flomax.
[2020-12-30] MEDS: MAGNESIUM OXIDE 400 MG TABLET PO SCH (08:12)
[2020-12-30] MEDS: AZITHROMYCIN INJ 500 MG in SODIUM CHLORIDE 0.9% 250 ML IV SCH (08:12)
[2020-12-30] MEDS: GABAPENTIN 400 MG CAPSULE PO SCH ×2 (08:14→21:20)
[2020-12-30] MEDS: TAMSULOSIN 0.4 MG CAPSULE PO SCH (08:14)
[2020-12-30] MEDS: levETIRAcetam 250 MG TABLET PO SCH ×2 (08:14→21:20)
[2020-12-30] MEDS: LORazepam 1 MG TABLET PO PRN ×2 (08:16→19:19)
[2020-12-30] MEDS: FINASTERIDE 5 MG TABLET PO SCH (08:16)
[2020-12-30] MEDS: METOPROLOL SUCCINATE 50 MG TABLET PO SCH (08:21)
[2020-12-30] MEDS: ENOXAPARIN 40 MG/0.4 ML SYRINGE SUBQ SCH (08:24)
[2020-12-30] MEDS: ethyl alcohoL 62% SWAB AMPULE NAS SCH ×2 (09:08→21:20)
[2020-12-30] MEDS: cefTRIAXone 1 GM in SODIUM CHLORIDE 0.9% MINIBAG 100 ML IV SCH (10:00)
[2020-12-30] MEDS ORDERED: FUROSEMIDE 40 MG/4 ML VIAL IVP STA (13:14)
[2020-12-30] MEDS: TRIAMCINOLONE 0.1% CREAM 15 GM TUBE TOP PRN (15:49)
[2020-12-30] MEDS: IPRATROPIUM/ALBUTEROL 3 ML NEB INH SCH ×2 (15:56→21:11)
[2020-12-30] MEDS ORDERED: MIN OIL/DIMETHICON/COCONUT OIL 92 GM TUBE TOP PRN (16:35)
[2020-12-30] MEDS ORDERED: BACITRACIN ZINC OINT 1 PACKET TOP PRN (16:35)
[2020-12-30] MEDS: THIAMINE 100 MG TABLET PO SCH (16:40)
[2020-12-30] MEDS ORDERED: methylPREDNISolone SUCCINATE 40 MG/ML VIAL IVP SCH (21:00)
[2020-12-30] MEDS: MONTELUKAST 10 MG TABLET PO SCH (21:20)
[2020-12-30] MEDS: NYSTATIN CREAM 15 GM TUBE TOP SCH (21:20)
[2020-12-31] MEDS: oxyCODONE 5 MG TABLET PO PRN ×4 (00:07→14:02)
[2020-12-31] MEDS: SODIUM CHLORIDE FLUSH 0.9% 10 ML SYRINGE IVP SCH ×2 (00:09→09:51)
[2020-12-31] MEDS ORDERED: traZODone 50 MG TABLET PO SCH (00:18)
[2020-12-31] MEDS: SODIUM CHLORIDE FLUSH 0.9% 10 ML SYRINGE IVP PRN (00:31)
[2020-12-31 05:41] LABS: BASOPHILS % (AUTO) 0.1 %; EOSINOPHILS % (AUTO) 0.1 %; HCT - HEMATOCRIT 36.7 % (42.0-52.0); HGB - HEMOGLOBIN 11.3 g/dL (14.0-18.0); LYMPHOCYTES # (AUTO) 0.6 10^3/uL (1.5-3.5); LYMPHOCYTES % (AUTO) 4.2 %; MEAN CORPUSCULAR HEMOGLOBIN 24.7 pg (27.0-31.0); MEAN CORPUSCULAR HGB CONC 30.8 g/dL (32.0-36.0); MEAN CORPUSCULAR VOLUME 80.3 fL (80.0-94.0); MEAN PLATELET VOLUME 9.4 fL (7.4-11.4); MONOCYTES # (AUTO) 0.6 10^3/uL (0.0-1.0); MONOCYTES % (AUTO) 4.5 %; NEUTROPHILS # (AUTO) 12.2 10^3/uL (1.5-6.6); NEUTROPHILS % (AUTO) 90.4 %; PLT - PLATELET COUNT 162 10^3/uL (130-450); RED BLOOD COUNT 4.57 10^6/uL (4.70-6.10); RED CELL DISTRIBUTION WIDTH 19.2 % (12.0-15.0); WHITE BLOOD COUNT 13.5 x10^3/uL (4.8-10.8)
[2020-12-31 05:51] LABS: CALCIUM 9.1 mg/dL (8.5-10.3); CREATININE 1.2 mg/dL (0.6-1.2); MAGNESIUM 2.5 mg/dL (1.7-2.8); POTASSIUM 4.4 mmol/L (3.5-5.0)
[2020-12-31] MEDS: IPRATROPIUM/ALBUTEROL 3 ML NEB INH SCH ×2 (07:15→11:50)
[2020-12-31] MEDS ORDERED: PRENATAL VITAMIN TABLET PO SCH (08:00)
--- NOTE | 2020-12-31 08:25 | XRAY Report ---
PROCEDURE: Chest 1 View X-Ray INDICATIONS: Follow up CHF/Pneumonia. TECHNIQUE: One view of the chest was acquired. COMPARISON: 12/28/2020 chest radiograph in 12/29/2020 CT angiogram chest FINDINGS: Surgical changes and devices: None. Lungs and pleura: No significant interval change in bilateral airspace opacities. Lungs are clear. Mediastinum: Mediastinal contours appear normal. Heart size is normal. Bones and chest wall: No suspicious bony lesions. Overlying soft tissues appear unremarkable. IMPRESSION: No significant interval change in bilateral airspace opacities. Please note that a change in the radi ographic appearance would be unexpected over a short interval of 48-72 hours. Clinical changes in the patient or much more reflective of improvement or worsening in the overall disease status. Radiograp hic follow-up to resolution is recommended. Reviewed by: Anibal Osuna MD on 12/31/2020 8:23 AM PDT Approved by: Anibal Osuna MD on 12/31/2020 8:23 AM PDT Station ID: [id number]
--- NOTE | 2020-12-31 08:34 | Discharge Plan ---
Discharge Plan for SNF / [facility] - Discharge Plan And Transition Orders Problem Reviewed?: Yes Disposition: SNF DC/Xfer Condition: Stable Allergies and Adverse Reactions: Allergies Allergy/AdvReac Type Severity Reaction Status Date / Time BRONWYN Inhibitors Allergy Emesis Verified 12/28/20 22:39 clavulanic acid Allergy Emesis Verified 12/28/20 22:39 [From Augmentin] lisinopril Allergy "THROAT Verified 12/28/20 22:39 SWELLING" Health Concerns: The patient was admitted to the floor for chest pain and dyspnea secondary to a COPD exacerbation. There is also concern for potential pneumonia and exacerbation of his heart failure. He was treated with Solu-Medrol and antibiotics which included ceftriaxone and azithromycin. We checked his troponins which have been within normal limits and his EKG did not suggest ischemia. He had improvement in his symptoms with the treatments as mentioned above. He also received IV Lasix given the concern for heart failure. He now feels back to his baseline. He will need to use oxygen more frequently and I discussed this with him as he has been using it as needed. Plan of Treatment: Please take prednisone 40 mg daily for 2 more days starting January 01. Please take Ceftin 500 mg twice daily for 2 more days starting January 01 for pneumonia. Please continue to take your torsemide as prescribed. You should try and check your weight on a daily basis and if your weight increases by 2 to 3 pounds then please contact your primary care provider as you may need an increased dose of your torsemide. - SNF / [facility] Transition Orders Admit to (Facility): [facility] Discharge Diagnosis: COPD exacerbation Community-acquired pneumonia Acute on chronic heart failure Chest pain History of seizure disorder Metastatic non-small cell lung cancer Chronic pain BPH Medicare Certification Statement: I certify that Post Hospital correction care is medically necessary on a continuing basis for any of the conditions for which she/he is receiving care during hospitalization. Notify PCP of admission and forward orders to primary provider for signature. Weight on admission and: Daily Call PCP immediately if weight increases by: 1.5 kg Other Notification Orders: Call PCP immediately if patient develops dyspnea, chest pain/tightness or edema. Additional Bowel Program Orders: If no BM after 2 days, nurse may give M.O.M. 30ml PO PRN and/or ducolax Supp 1 LA and/or EFRAIN 250mg P.O., and/or senna 1-2 tabs PO. On day 3 nurse may give repeat above order until residents constipation is resolved. Oxygen Orders: He will need 2 L of oxygen at rest and with activity. Medication Orders: PLEASE REFER TO THE DISCHARGE MEDICATION LIST. - Medications New Prescriptions: cefUROXime axetiL [Ceftin] 500 mg PO BID 2 Days #8 tablet predniSONE [Deltasone] 40 mg PO DAILYWM 2 Days #4 tablet - Diet Type: No added salt Texture: Regular Liquids: Thin Follow Up: He will need follow-up with his primary care provider in 1 week.
[2020-12-31] MEDS ORDERED: predniSONE 20 MG TABLET PO SCH (09:00)
[2020-12-31] MEDS ORDERED: SPIRONOLACTONE 25 MG TABLET PO SCH (09:00)
[2020-12-31] MEDS ORDERED: polyethylene glycoL 3350 17 GM PACKET PO SCH (09:00)
[2020-12-31] MEDS: cefTRIAXone 1 GM in SODIUM CHLORIDE 0.9% MINIBAG 100 ML IV SCH (09:10)
[2020-12-31] MEDS: TRIAMCINOLONE 0.1% CREAM 15 GM TUBE TOP PRN (09:18)
[2020-12-31] MEDS: GABAPENTIN 400 MG CAPSULE PO SCH (09:22)
[2020-12-31] MEDS: METOPROLOL SUCCINATE 50 MG TABLET PO SCH (09:25)
[2020-12-31] MEDS: levETIRAcetam 250 MG TABLET PO SCH (09:25)
[2020-12-31] MEDS: THIAMINE 100 MG TABLET PO SCH (09:27)
[2020-12-31] MEDS: FINASTERIDE 5 MG TABLET PO SCH (09:28)
[2020-12-31] MEDS: TAMSULOSIN 0.4 MG CAPSULE PO SCH (09:29)
[2020-12-31] MEDS: MAGNESIUM OXIDE 400 MG TABLET PO SCH (09:30)
[2020-12-31] MEDS: NICOTINE 7 MG PATCH TOP SCH (09:38)
[2020-12-31] MEDS: ethyl alcohoL 62% SWAB AMPULE NAS SCH (09:49)
[2020-12-31] MEDS: ENOXAPARIN 40 MG/0.4 ML SYRINGE SUBQ SCH (09:50)
[2020-12-31] MEDS: LIDOCAINE OINTMENT 5% 35.44 GM TUBE TOP SCH ×2 (10:03→13:40)
[2020-12-31] MEDS: AZITHROMYCIN INJ 500 MG in SODIUM CHLORIDE 0.9% 250 ML IV SCH (10:46)
--- NOTE | 2020-12-31 11:03 | DISCHARGE SUMMARY ---
Discharge Summary Admit Date: 12/29/20 Discharge Date: 12/31/20 Discharging Provider: Ryder Ordonez Primary Care Provider: Williams Horton Code Status: Attempt Resuscitation Condition at Discharge: Stable Discharge Disposition: SNF DC/Xfer Discharge Facility Name: [facility] - DIAGNOSES Admission Diagnoses: COPD exacerbation Cor pulmonale Chest pain Alcohol abuse Chronic pain Therapeutic opioid-induced constipation Dementia with behavioral disturbance Tobacco use Hyponatremia Discharge Diagnoses with Status of Each Condition: COPD exacerbation - resolved. Community-acquired pneumonia - improved. Acute on chronic heart failure - improved. Chest pain - resolved. History of seizure disorder - stable. Metastatic non-small cell lung cancer - stable. Chronic pain - stable. BPH - stable. - HPI History of Present Illness: H&P per Dr. Denton: This is a 60-year-old white male who has a history of smoking, lung cancer with metastatic disease to the brain, COPD with an echocardiogram in February 2019 showing gradually enlarging right ventricle and gradually rising right heart pressures with pulmonary hypertension. His last left-sided ejection fraction was 60 to 65%, but he had severe right ventricular enlargement with moderately impaired RV systolic function, mild tricuspid regurgitation and RVSP at rest of 79 mmHg. He presented to the emergency room after being brought in by EMS for worsening chest pain for the last 3 days as well as severe shortness of breath. However, his speech was clear and he was able to follow all commands and he was oxygenating well on room air with a respiratory rate of 22. He was able to transfer himself from the EMS rsiloam to the emergency room bed [facility] without increasing his respiratory effort. He needed a little bit of help to do so. Over the course of a few hours the emergency room physician has evaluated and treated this patient. His temperature was 35.9. Heart rate 86. Blood pressure 129/97. Throughout his stay in the emergency room he has a varying oxygenation requirement. At some point the nurse documents 4 L, at other point she documents room air. In any case, his O2 sats remained at 97 to 99%. He was given oral steroids, IV antibiotics, nebulizer. Chest x-ray showed an increasing right perihilar opacity, cardiomegaly. A CT of the chest was done for PE and there is no PE. This is a preliminary report with final report pending. Dr. Raman sure that report with me since I do not have access to that. He is hyponatremic at 123. Troponin was 6.9 at 11 PM. Repeat troponin has not been done. BNP is 624. White cell count 8.5 with hemoglobin 10.9. Alcohol level is 41.4. Dr. Raman is asking us to place this patient in observation for continued treatment of his subjective sense of shortness of breath. - HOSPITAL COURSE Hospital Course: He was admitted for hypoxia and chest pain which was thought to be secondary to COPD exacerbation and heart failure. He had a CT angiogram which showed no pulmonary embolism but was suggestive of pneumonia or pulmonary edema. He was treated with Solu-Medrol, nebulizers and started on ceftriaxone and azithromycin empirically. He was also diuresed with IV Lasix given his mildly elevated BNP, lower extremity edema and concerns for heart failure based off of imaging. He was also hyponatremic on admission in the low 120s which improved at an appropriate rate. We did do an echocardiogram which revealed a preserved ejection fraction. Over the next 48 hours, he had improvement in his dyspnea and his chest pain had completely resolved. We did trend his troponins which were all within normal limits. His EKG also did not suggest ischemia. It was felt his chest pain related to the COPD exacerbation. We did do an exercise desaturation test prior to discharge which showed he requires 2 L of oxygen at rest and with activity. The patient is supposed to be on oxygen but has not always been compliant with this. He was discharged with Ceftin 500 mg twice daily for 2 more days to complete 5 days of therapy for community-acquired pneumonia. He was also discharged on prednisone 40 mg daily for 2 more days to complete 5 days of steroids for the COPD exacerbation. We did not change his home torsemide dose but did ask him to check his weight and to call his primary care provider if he gains 2 to 3 pounds. On day of discharge we did repeat a chest x-ray which overall appeared stable. His BNP had also increased to 1200 which is almost double admission but clinically he had no evidence of heart failure and he was back to his baseline from respiratory standpoint. He was able to ambulate without any dyspnea whatsoever and he also preferred to go home and so he was discharged. - ALLERGIES Allergies/Adverse Reactions: Allergies Allergy/AdvReac Type Severity Reaction Status Date / Time BRONWYN Inhibitors Allergy Emesis Verified 12/28/20 22:39 clavulanic acid Allergy Emesis Verified 12/28/20 22:39 [From Augmentin] lisinopril Allergy "THROAT Verified 12/28/20 22:39 SWELLING" - MEDICATIONS Home Medications: Ambulatory Orders Medication Instructions Recorded Confirmed Lorazepam [Ativan] 1 mg PO Q8HR PRN 09/23/15 12/29/20 Tamsulosin [Flomax] 0.4 mg PO DAILY 06/29/16 12/29/20 Lidocaine Ointment 5% [Xylocaine 1 applic TOP PRN PRN 08/20/17 12/29/20 Ointment 5%] Gabapentin [Neurontin] 1,600 mg PO BID 09/27/17 12/29/20 Levetiracetam [Keppra] 500 mg PO BID #30 tablet 11/23/17 12/29/20 Ondansetron Odt [Zofran Odt] 4 mg TL Q6H PRN #15 tablet 03/19/18 12/29/20 Albuterol Sulf [Ventolin Hfa 2 puffs INH Q4HR PRN 05/09/18 12/29/20 Inhaler] Melatonin 6 mg PO QPM PRN 05/09/18 12/29/20 Chlorhexidine Gluconate [Peridex] 30 ml PO BID PRN 12/18/18 12/29/20 Magnesium 500 mg PO DAILY 12/18/18 12/29/20 polyethylene glycoL 3350 [Miralax] 17 gm PO DAILY PRN 12/18/18 12/29/20 Budesonide/Formoterol Fumarate 2 puffs IH BID 12/20/18 12/29/20 [Symbicort 160-4.5 Mcg Inhaler] Montelukast [Singulair] 10 mg PO QPM #30 tablet 12/28/18 12/29/20 Ipratropium/Albuterol [Duoneb] 3 ml INH Q4HR PRN MDD hold no 02/15/19 12/29/20 nebulizzer Loperamide HCl [Loperamide] 2 mg PO QID PRN 02/23/19 12/29/20 Docusate Sodium 100 mg PO BID 05/13/19 12/29/20 Metoprolol Succinate 50 mg PO DAILY 08/05/19 12/29/20 Naloxone HCl [Narcan] 1 spr CHANCE ONCE PRN 08/05/19 12/29/20 Nystatin 5 ml PO TID PRN 08/05/19 12/29/20 Nystatin Cream [Mycostatin Cream] 1 applic TOP QPM 08/05/19 12/29/20 Spironolactone [Aldactone] 25 mg PO DAILY 08/05/19 12/29/20 Triamcinolone 0.1% Cream [Kenalog 1 applic TOP BID PRN 10/27/19 12/29/20 0.1% Cream] oxyCODONE [Roxicodone] 10 - 20 mg PO Q4HR MDD 8 tabs 02/06/20 12/29/20 Loratadine [Claritin] 10 mg PO DAILY 06/16/20 12/29/20 Finasteride [Proscar] 5 mg PO DAILY 10/20/20 12/29/20 Ketotifen Fumarate [Alaway] 1 drops EACHEYE PRN PRN 10/20/20 12/29/20 Torsemide 20 mg PO DAILY 10/20/20 12/29/20 diphenhydrAMINE [Benadryl] 12.5 - 25 mg PO PRN PRN 10/20/20 12/29/20 B Complx/C/Folic/Zinc/Cup [place]/E 1 tab PO DAILY 12/06/20 12/29/20 [Ljkbwuadxyki-Sfrt-Rmijuz Tab] Omeprazole 40 mg PO DAILY 12/06/20 12/29/20 cefUROXime axetiL [Ceftin] 500 mg PO BID 2 Days #8 tablet 12/31/20 predniSONE [Deltasone] 40 mg PO DAILYWM 2 Days #4 tablet 12/31/20 - PHYSICAL EXAM AT DISCHARGE General Appearance: positive: No acute distress, Alert Eyes Bilateral: positive: Normal inspection ENT: positive: ENT inspection nml, Other (Nasal cannula in place.) Neck: positive: Nml inspection Respiratory: positive: No respiratory distress, Wheezes (Faint expiratory wh eezes). negative: Rales Cardiovascular: positive: Regular rate & rhythm. negative: Irregularly irregular, Tachycardia Abdomen: positive: Non-tender, No distention. negative: Tenderness Skin: positive: Warm, Dry Extremities: positive: Pedal edema (Trace pitting edema.) Neurologic/Psychiatric: positive: Motor nml. negative: Disoriented to person, Disoriented to place - LABS Result Diagrams: 12/31/20 05:34 12/31/20 05:34 - DIAGNOSTIC IMAGING Diagnostic Imaging Results: Final report reviewed - FOLLOW UP Follow Up: He was asked to follow-up with his primary care physician in 1 week and to contact him if he were to gain 2 to 3 pounds as he may require an extra dose of torsemide. - TIME SPENT Time Spent in Discharge (Minutes): 34
[2020-12-31 13:08] VITALS: BP 111/65
== END 2020-12-31 15:30 | DRG 190 ==
LOC: EDUNIT# → ED 22:29 → MS2 12-29 05:48 → OBSVTOIN 12-30 13:13
PROVIDERS: ADMIT Specialist; ATTEND Internal Medicine
DX: J44.0 Chronic obstructive pulmonary disease with (acute) lower respiratory infection (principal); J18.9 Pneumonia, unspecified organism; I50.33 Acute on chronic diastolic (congestive) heart failure; E87.1 Hypo-osmolality and hyponatremia; C34.90 Malignant neoplasm of unspecified part of unspecified bronchus or lung; C79.31 Secondary malignant neoplasm of brain; F02.81 Dementia in other diseases classified elsewhere, unspecified severity, with behavioral disturbance; F17.210 Nicotine dependence, cigarettes, uncomplicated; J44.1 Chronic obstructive pulmonary disease with (acute) exacerbation; R09.02 Hypoxemia; Z99.81 Dependence on supplemental oxygen; Z91.19 Patient's noncompliance with other medical treatment and regimen; I11.0 Hypertensive heart disease with heart failure; G40.909 Epilepsy, unspecified, not intractable, without status epilepticus; N40.0 Benign prostatic hyperplasia without lower urinary tract symptoms; G89.29 Other chronic pain; Z20.822 Contact with and (suspected) exposure to COVID-19; Z79.899 Other long term (current) drug therapy; I27.81 Cor pulmonale (chronic); F10.10 Alcohol abuse, uncomplicated; G62.9 Polyneuropathy, unspecified; K59.03 Drug induced constipation; T40.2X5A Adverse effect of other opioids, initial encounter; F41.9 Anxiety disorder, unspecified; M47.812 Spondylosis without myelopathy or radiculopathy, cervical region; Z89.421 Acquired absence of other right toe(s); B35.1 Tinea unguium
CPT/HCPCS: 0202U; 36415; 71045; 71275; 80048; 80053; 80320; 83605; 83690; 83735; 83880; 84484; 85025; 85610; 85730; 93005; 93306; 94640; 94761; 96365; 96366; 96367; 96375; 96376; 99284; 99285; A6250; A9270; G0378; J7512; J8499; Q0162; Q9967

== ENCOUNTER 2021-01-07 12:23 | Outpatient (CLI) | payer MEDICAID ==
--- NOTE | 2021-01-07 16:11 | XRAY Report ---
PROCEDURE: Chest 2 View X-Ray INDICATIONS: PNEUMONIA TECHNIQUE: 2 view(s) of the chest. COMPARISON: Chest x-ray 12/31/2020 FINDINGS: Surgical changes and devices: Left Port-A-Cath is unchanged. Lungs and pleura: There are increased bilateral pulmonary opacities within the bases appearing more p rominent on the right when compared to prior exam. Mediastinum: Mediastinal contours are normal. Heart size is enlarged. Bones and chest wall: No suspicious bony abnormalities. Soft tissues appear unremarkable. IMPRESSION: Persistent pulmonary opacities suggestive of edema. Development of increased opacity wit hin the right base is noted. While this could represent increased focal edema, superimposed pneumonia should be considered. Reviewed by: Sherrell Walls MD on 01/07/2021 4:09 PM PDT Approved by: Sherrell Walls MD on 01/07/2021 4:09 PM PDT Station ID: [id number]
== END 2021-01-07 12:24 | disposition home or self-care (01) ==
LOC: DI.N 12:23
PROVIDERS: ATTEND Family Medicine
DX: R91.8 Other nonspecific abnormal finding of lung field (principal)

== ENCOUNTER 2021-01-09 01:01 | Outpatient (CLI) | payer MEDICAID | END 2021-01-09 01:02 | disposition critical access hospital (66) | LOC: EMS 01:01 | DX: R07.1 Chest pain on breathing (principal); R05 Cough | CPT/HCPCS: A0425; A0429; A0999 ==

== ENCOUNTER 2021-01-09 01:18 | Emergency (ER) | payer MEDICAID ==
--- NOTE | 2021-01-09 01:50 | ED Physician Documentation ---
PD HPI CHEST PAIN - Stated complaint Stated Complaint: CP - Chief complaint Chief Complaint: Cardiac - History obtained from History obtained from: Patient, EMS - History of Present Illness Timing - onset: Enter time (173), Today Timing - onset during: Rest Timing - duration: Hours Timing - details: Gradual onset, Still present Quality: Pressure Location: Substernal Improved by: Rest, Oxygen Worsened by: Inspiration Associated symptoms: Shortness of air, Cough Similar symptoms before: Diagnosis (pneumonia and COPD) Recently seen: Emergency Dept, Admitted - Additional information Additional information: 60-year-old male with history of lung cancer and metastases to the brain as been admitted into the hospital 10 days ago for pneumonia and exacerbation of COPD. He was discharged on prednisone and Ceftin for total of 5-day course for pneumonia and COPD. The patient states that he was not able to get the medication for his nebulizer machine and continues to have shortness of breath and he has had increased shortness of breath over the last day and indicates that he believes that his pneumonia was not entirely resolved. He feels that he needed a longer course of antibiotic and a longer course of steroid. He is on oxygen at home. Review of Systems Constitutional: denies: Fever Eyes: denies: Decreased vision Ears: denies: Ear pain Nose: reports: Congestion. denies: Rhinorrhea / runny nose Throat: denies: Sore throat Cardiac: reports: Chest pain / pressure, Pedal edema. 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 : Benign prostate hypertrophy, Incontinence, Nocturia, Frequency HEENT: Chronic vision loss Psych: Anxiety Musculoskeletal: Chronic back pain, Other Derm: Other - Past Surgical History Past Surgical History: Yes Ortho: Amputation Cardiovascular: Cardiac catheterization Neuro: Craniotomy, Gamma knife - Present Medications Home Medications: Ambulatory Orders Medication Instructions Recorded Confirmed Lorazepam [Ativan] 1 mg PO Q8HR PRN 09/23/15 12/29/20 Tamsulosin [Flomax] 0.4 mg PO DAILY 06/29/16 12/29/20 Lidocaine Ointment 5% [Xylocaine 1 applic TOP PRN PRN 08/20/17 12/29/20 Ointment 5%] Gabapentin [Neurontin] 1,600 mg PO BID 09/27/17 12/29/20 Levetiracetam [Keppra] 500 mg PO BID #30 tablet 11/23/17 12/29/20 Ondansetron Odt [Zofran Odt] 4 mg TL Q6H PRN #15 tablet 03/19/18 12/29/20 Albuterol Sulf [Ventolin Hfa 2 puffs INH Q4HR PRN 05/09/18 12/29/20 Inhaler] Melatonin 6 mg PO QPM PRN 05/09/18 12/29/20 Chlorhexidine Gluconate [Peridex] 30 ml PO BID PRN 12/18/18 12/29/20 Magnesium 500 mg PO DAILY 12/18/18 12/29/20 polyethylene glycoL 3350 [Miralax] 17 gm PO DAILY PRN 12/18/18 12/29/20 Budesonide/Formoterol Fumarate 2 puffs IH BID 12/20/18 12/29/20 [Symbicort 160-4.5 Mcg Inhaler] Montelukast [Singulair] 10 mg PO QPM #30 tablet 12/28/18 12/29/20 Ipratropium/Albuterol [Duoneb] 3 ml INH Q4HR PRN MDD hold no 02/15/19 12/29/20 nebulizzer Loperamide HCl [Loperamide] 2 mg PO QID PRN 02/23/19 12/29/20 Docusate Sodium 100 mg PO BID 05/13/19 12/29/20 Metoprolol Succinate 50 mg PO DAILY 08/05/19 12/29/20 Naloxone HCl [Narcan] 1 spr CHANCE ONCE PRN 08/05/19 12/29/20 Nystatin 5 ml PO TID PRN 08/05/19 12/29/20 Nystatin Cream [Mycostatin Cream] 1 applic TOP QPM 08/05/19 12/29/20 Spironolactone [Aldactone] 25 mg PO DAILY 08/05/19 12/29/20 Triamcinolone 0.1% Cream [Kenalog 1 applic TOP BID PRN 10/27/19 12/29/20 0.1% Cream] oxyCODONE [Roxicodone] 10 - 20 mg PO Q4HR MDD 8 tabs 02/06/20 12/29/20 Loratadine [Claritin] 10 mg PO DAILY 06/16/20 12/29/20 Finasteride [Proscar] 5 mg PO DAILY 10/20/20 12/29/20 Ketotifen Fumarate [Alaway] 1 drops EACHEYE PRN PRN 10/20/20 12/29/20 Torsemide 20 mg PO DAILY 10/20/20 12/29/20 diphenhydrAMINE [Benadryl] 12.5 - 25 mg PO PRN PRN 10/20/20 12/29/20 B Complx/C/Folic/Zinc/Cup Barkley/E 1 tab PO DAILY 12/06/20 12/29/20 [Menlclauerke-Tiid-Znwjlq Tab] Omeprazole 40 mg PO DAILY 12/06/20 12/29/20 cefUROXime axetiL [Ceftin] 500 mg PO BID 2 Days #8 tablet 12/31/20 predniSONE [Deltasone] 40 mg PO DAILYWM 2 Days #4 tablet 12/31/20 Azithromycin [Zithromax] 250 mg PO DAILY #6 tablet 01/09/21 Cefuroxime Axetil [Cefuroxime] 500 mg PO BID #14 tablet 01/09/21 predniSONE [Deltasone] 10 mg PO ONCE #26 tablet 01/09/21 - Allergies Allergies/Adverse Reactions: Allergies Allergy/AdvReac Type Severity Reaction Status Date / Time BRONWYN Inhibitors Allergy Emesis Verified 01/09/21 01:39 clavulanic acid Allergy Emesis Verified 01/09/21 01:39 [From Augmentin] lisinopril Allergy "THROAT Verified 01/09/21 01:39 SWELLING" - Social History Does the pt smoke?: Yes Smoking Status: Current every day smoker Does the pt drink ETOH?: Yes Does the pt have substance abuse?: No - Immunizations Immunizations are current?: Yes - POLST Patient has POLST: No POLST Status: Full Code PD ED PE NORMAL - Vitals Vital signs reviewed: Yes (Tachycardic and hypoxic on room air at 88%) - General General: Alert and oriented X 3, No acute distress, Well developed/nourished - HEENT HEENT: Atraumatic, PERRL, EOMI - Neck Neck: Supple, no meningeal sign, No bony TTP - Cardiac Cardiac: No murmur, Other (Tachycardic to 100) - Respiratory Respiratory: No respiratory distress, Other (Diminished breath sounds bilaterally) - Abdomen Abdomen: Soft, Non tender - Back Back: No CVA TTP, No spinal TTP - Derm Derm: Normal color, Warm and dry, No rash - Extremities Extremities: No deformity, Other (Edema bilaterally worse on the left than the right) - Neuro Neuro: Alert and oriented X 3, cad manager 2-12 intact, No motor deficit, No sensory deficit, Normal speech Eye Opening: Spontaneous Motor: Obeys Commands Verbal: Oriented GCS Score: 15 - Psych Psych: Normal mood, Normal affect Results - Vitals Vitals: Vital Signs - 24 hr 01/09/21 01/09/21 01/09/21 01:19 01:56 02:39 Temperature 36.3 C L 37.4 C Heart Rate 110 H 86 107 H Respiratory 18 18 18 Rate Blood Pressure 103/80 120/86 H 93/52 L O2 Saturation 88 L 95 95 01/09/21 01/09/21 01/09/21 02:40 02:58 03:00 Temperature Heart Rate 105 H 105 H 105 H Respiratory 18 18 18 Rate Blood Pressure 110/70 104/69 O2 Saturation 93 93 01/09/21 03:45 Temperature Heart Rate 103 H Respiratory 21 Rate Blood Pressure 103/73 O2 Saturation 93 Oxygen O2 Source [] Room air O2 Source Nasal cannula - EKG (time done) 0117 Rate: Rate (enter#) (111) Rhythm: Sinus tachycardia Intervals: Normal OK Compare to prior EKG: Changed from prior EKG (SPT 12/28/20 the rate has increased the prolonged OK and QTc have resolved. ) Computer interpretation: Agree with computer - Labs Labs: Laboratory Tests 01/09/21 01/09/21 01/09/21 01:35 01:35 01:35 WBC 12.5 H RBC 4.70 Hgb 12.1 L Hct 38.6 L MCV 82.1 MCH 25.7 L MCHC 31.3 L RDW 19.9 H Plt Count 195 MPV 9.3 Neut # (Auto) 10.3 H Lymph # (Auto) 1.0 L [place] # (Auto) 1.0 Eos # (Auto) 0.1 Baso # (Auto) 0.1 Absolute Nucleated RBC 0.00 Nucleated RBC % 0.0 Sodium 128 L Potassium 4.5 Chloride 91 L Carbon Dioxide 25 Anion Gap 12.0 BUN 20 Creatinine 1.4 H Estimated GFR (MDRD) 52 L Glucose 122 H Calcium 8.4 L Total Bilirubin 1.6 H AST 22 ALT 10 Alkaline Phosphatase 73 Troponin I High Sens 11.9 Total Protein 7.5 Albumin 4.0 Globulin 3.5 Albumin/Globulin Ratio 1.1 Lipase 36 - Rads (name of study) Chest Radiology: Prelim report reviewed (Impression: Nonspecific interstitial thickening bilaterally similar to previous.), EMP read indepedently PD MEDICAL DECISION MAKING - ED course Complexity details: reviewed old records, reviewed results, re-evaluated patient, considered differential, d/w patient ED course: 60-year-old male with a history of right heart failure, COPD, lung cancer (adenocarcinoma on expectant management after biologics) and recent pneumonia presents to the emergency department with persistent symptoms of dyspnea cough and chest pain. He has a normal appearing electrocardiogram today and he has a recent resolution of his chest pressure with the use of a nebulizer machine with a DuoNeb and 125 mg of Solu-Medrol. He has persistence of infiltrate in his chest x-ray and he is administered Rocephin and azithromycin intravenously. He has improvement and it appears stable for discharge to home. Departure - Departure Disposition: 01 Home, Self Care Clinical Impression: COPD exacerbation Community acquired pneumonia Qualifiers: Laterality: right Lung location: middle lobe of lung Qualified Code(s): J18.9 - Pneumonia, unspecified organism Condition: Stable Instructions: ED COPD Flare, ED Pneumonia Adult Follow-Up: Williasm Horton DO [Primary Care Provider] - Prescriptions: Cefuroxime Axetil [Cefuroxime] 500 mg PO BID #14 tablet predniSONE [Deltasone] 10 mg PO ONCE #26 tablet Azithromycin [Zithromax] 250 mg PO DAILY #6 tablet
[2021-01-09 01:57] LABS: BASOPHILS # (AUTO) 0.1 10^3/uL (0.0-0.1); BASOPHILS % (AUTO) 0.4 %; EOSINOPHILS # (AUTO) 0.1 10^3/uL (0.0-0.7); HCT - HEMATOCRIT 38.6 % (42.0-52.0); HGB - HEMOGLOBIN 12.1 g/dL (14.0-18.0); LYMPHOCYTES % (AUTO) 7.6 %; MEAN CORPUSCULAR HEMOGLOBIN 25.7 pg (27.0-31.0); MEAN CORPUSCULAR HGB CONC 31.3 g/dL (32.0-36.0); MEAN CORPUSCULAR VOLUME 82.1 fL (80.0-94.0); MEAN PLATELET VOLUME 9.3 fL (7.4-11.4); MONOCYTES % (AUTO) 8.1 %; NEUTROPHILS # (AUTO) 10.3 10^3/uL (1.5-6.6); NEUTROPHILS % (AUTO) 82.6 %; PLT - PLATELET COUNT 195 10^3/uL (130-450); RED CELL DISTRIBUTION WIDTH 19.9 % (12.0-15.0); WHITE BLOOD COUNT 12.5 x10^3/uL (4.8-10.8)
[2021-01-09 02:12] LABS: ALBUMIN/GLOBULIN RATIO 1.1 (1.0-2.2); BILIRUBIN,TOTAL 1.6 mg/dL (0.2-1.0); CALCIUM 8.4 mg/dL (8.5-10.3); CREATININE 1.4 mg/dL (0.6-1.2); POTASSIUM 4.5 mmol/L (3.5-5.0); TOTAL PROTEIN 7.5 g/dL (6.7-8.2)
[2021-01-09] MEDS ORDERED: methylPREDNISolone SUCCINATE 125 MG/2 ML VIAL IVP STA (02:34)
[2021-01-09] MEDS ORDERED: IPRATROPIUM/ALBUTEROL 3 ML NEB INH STA ×2 (02:34→06:53)
[2021-01-09] MEDS ORDERED: cefTRIAXone 1 GM in SODIUM CHLORIDE 0.9% MINIBAG 100 ML IV STA (03:25)
[2021-01-09] MEDS ORDERED: AZITHROMYCIN INJ 500 MG in SODIUM CHLORIDE 0.9% 250 ML IV STA (03:25)
[2021-01-09] MEDS ORDERED: cefTRIAXone 1 GM VIAL ONE (04:25)
[2021-01-09] MEDS ORDERED: predniSONE 20 MG TABLET PO STA (06:53)
[2021-01-09] MEDS ORDERED: oxyCODONE 5 MG TABLET PO STA (06:53)
[2021-01-09 07:25] VITALS: BP 131/95
--- NOTE | 2021-01-09 10:21 | XRAY Report ---
PROCEDURE: Chest 1 View X-Ray INDICATIONS: Chest pain TECHNIQUE: One view of the chest was acquired. COMPARISON: January 07, 2021 FINDINGS: Surgical changes and devices: None. Lungs and pleura: Left-sided Port-A-Cath in place. Diffuse interstitial thickening or scarring presen t, similar to prior exam. Atherosclerotic vascular calcification noted in the aortic arch. Mediastinum: Heart size is enlarged. No vascular congestion noted. Bones and chest wall: No suspicious bony lesions. Overlying soft tissues appear unremarkable. IMPRESSION: Cardiomegaly and chronic interstitial changes without vascular congestion. No change from prior exam. Note: Final report is concordant with preliminary report provided by [facility] Reviewed by: Jamel Ariza MD on 01/09/2021 9:20 AM KEMAL Approved by: Jamel Ariza MD on 01/09/2021 9:20 AM AKKEITH Station ID: [id number]
== END 2021-01-09 07:49 | disposition home or self-care (01) ==
LOC: EDUNIT# → ED 01:18 → SUPCPDRO 01:18 → ED 07:49
DX: J18.9 Pneumonia, unspecified organism (principal); J44.1 Chronic obstructive pulmonary disease with (acute) exacerbation; F17.200 Nicotine dependence, unspecified, uncomplicated
CPT/HCPCS: 36415; 71045; 80053; 83690; 84484; 85025; 93005; 94640; 96365; 96367; 96375; 99284; 99285; A9270; J7512

== ENCOUNTER 2021-03-17 12:28 | Outpatient (CLI) | payer MEDICAID ==
[2021-03-17] MEDS ORDERED: IOPAMIDOL-300 100 ML VIAL ONE (12:42)
[2021-03-17] MEDS ORDERED: IOVERSOL 320 50 ML VIAL ONE (12:42)
[2021-03-17] MEDS ORDERED: IOPAMIDOL-300 100 ML VIAL IVP ONE (15:42)
[2021-03-17] MEDS ORDERED: IOVERSOL 320 50 ML VIAL PO ONE (15:47)
--- NOTE | 2021-03-17 16:11 | CT Report ---
PROCEDURE: Abdomen/Pelvis W INDICATIONS: LUNG CA CONTRAST: IV CONTRAST: Isovue 300 ml: 100 PO CONTRAST: Optiray 320 ml50 TECHNIQUE: After the administration of IV and oral contrast, 5 mm thick sections acquired from the diaphragms to the symphysis. 5 mm thick coronal and sagittal reformats were acquired. For radiation dose reducti on, the following was used: automated exposure control, adjustment of mA and/or kV according to christopher ent size. COMPARISON: Chest CT dated 12/29/2020. Abdominal pelvic CT dated 10/13/2020 FINDINGS: Image quality: Excellent. ABDOMEN: Lung bases: There is a small right pleural effusion. There is mild bibasilar interstitial pulmonary o pacity, which appears chronic, as before. There is mild calcification of the coronary vasculature. Solid organs: Liver and spleen are normal in size and enhancement. Gallbladder demonstrates a few s mall calculi within its lumen, without wall thickening Biliary system is non dilated. Pancreas enha nces normally. No adrenal nodules. Kidneys demonstrate normal size and enhancement, without hydrone phrosis. Peritoneum and bowel: Bowel loops demonstrate normal wall thickness and caliber. No free fluid or a ir. Normal appendix. Nodes and vessels: No retroperitoneal or mesenteric adenopathy by size criteria. Aorta and inferior vena cava are normal in size. Miscellaneous: No ventral hernias. PELVIS: Genitourinary: Bladder wall thickness is normal. Miscellaneous: There is a bowel containing left inguinal hernia, as before, containing sigmoid colon, measuring roughly 8 cm transverse by 19 cm craniocaudal. Bones: No suspicious bony lesions. No vertebral body compression fractures. IMPRESSION: 1. No evidence of malignancy. 2. Small right pleural effusion. 3. Coronary artery disease. 4. Cholelithiasis with no evidence of cholecystitis. 5. Normal appendix. 6. Large bowel containing left inguinal hernia with no evidence of associated bowel strangulation, no r obstruction. Reviewed by: Giovani Mercer MD on 03/17/2021 4:10 PM PDT Approved by: Giovani Mercer MD on 03/17/2021 4:10 PM PDT Station ID: [id number]
--- NOTE | 2021-03-17 17:44 | CT Report ---
PROCEDURE: CHEST W INDICATIONS: LUNG CA CONTRAST: IV CONTRAST: Isovue 300 ml: 100 PO CONTRAST: Optiray 320 ml50 TECHNIQUE: After the administration of intravenous contrast, images were acquired from the pulmonary apices to t he posterior costophrenic angles. Multiplanar MIP reformats were acquired. For radiation dose reduc tion, the following was used: automated exposure control, adjustment of mA and/or kV according to pa tient size. COMPARISON: None. FINDINGS: Image quality: Excellent. Lungs and pleura: Severe centrilobular and paraseptal emphysema, with a biapical predominance. No sig nificant change, or minimal decrease in the size of a spiculated mass in the right lung. On previous image 163/3 it measured approximately 4.6 x 2.9 cm. On current image 188/4 it measures approximately 4.5 x 2.4 cm. However, it is difficult to make reproducible comparisons between the 2 studies. The ma ss certainly hasn't increased in size. No new pulmonary masses. Small or minimal right pleural effusi on, not significantly changed. Mediastinum: Heart size is normal. No pericardial effusion. Moderately severe coronary artery calci fications. No mediastinal or hilar adenopathy by size criteria. Shotty mediastinal lymph nodes are s table. Thoracic aorta and central pulmonary arteries are normal in size. Esophagus is normal in roxann beryl. No hiatal hernia. Bones and chest wall: No suspicious bony lesions. No vertebral body compression fractures. No axil mathieu or supraclavicular adenopathy by size criteria. Thyroid gland is unremarkable. Left chest Port-A -Cath. Abdomen: Visualized upper abdominal solid organs appear normal. Upper abdominal bowel loops are nor mal in caliber. IMPRESSION: 1. Severe emphysematous change. 2. No gross change or slightly decreased size of spiculated right lung mass. 3. No new or increasing lesions. 4. Moderately severe coronary artery calcifications. CLINICAL RECOMMENDATION STATEMENTS: In patients <35 years with an ITN detected on CT, MRI, or extrathyroidal ultrasound, the Committee re commends further evaluation with dedicated thyroid ultrasound if the nodule is ?1 cm and has no suspi cious imaging features, and if the patient has normal life expectancy. In patients ?35 years with an ITN detected on CT, MRI, or extrathyroidal ultrasound, the Committee re commends further evaluation with dedicated thyroid ultrasound if the nodule is ?1.5 cm and has no figueroa picious imaging features, and if the patient has normal life expectancy. (ACR, 2014) Reviewed by: Dirk Mcfadden MD on 03/17/2021 5:42 PM PDT Approved by: Dirk Mcfadden MD on 03/17/2021 5:42 PM PDT Station ID: [id number]
== END 2021-03-17 12:29 | disposition home or self-care (01) ==
LOC: DI 12:28
PROVIDERS: ATTEND Internal Medicine
DX: C34.90 Malignant neoplasm of unspecified part of unspecified bronchus or lung (principal); J91.8 Pleural effusion in other conditions classified elsewhere; I25.10 Atherosclerotic heart disease of native coronary artery without angina pectoris; K80.20 Calculus of gallbladder without cholecystitis without obstruction; K40.90 Unilateral inguinal hernia, without obstruction or gangrene, not specified as recurrent; J43.9 Emphysema, unspecified

== ENCOUNTER 2021-03-17 12:30 | Outpatient (CLI) | payer MEDICAID ==
--- NOTE | 2021-03-17 15:31 | CT Report ---
PROCEDURE: HEAD W INDICATIONS: LUNG CA CONTRAST: IV CONTRAST: Isovue 300 ml: 100 PO CONTRAST: Optiray 320 ml50 TECHNIQUE: 4.5 mm thick angled axial sections acquired from the foramen magnum to the vertex after the administr ation of intravenous contrast. For radiation dose reduction, the following was used: automated expo sure control, adjustment of mA and/or kV according to patient size. COMPARISON: 01/23/2017, 08/02/2017, 08/20/2017, 12/12/2017, 04/21/2018, 12/19/2018, 04/23/2019, 07/23/2019, 08/03/2019, 02/12/2020, 05/26/2020, 10/13/2020. Correlation is also made with prior brain MRI, 12/17/2014. FINDINGS: Image quality: Excellent. CSF Spaces: Basal cisterns are patent. No extra-axial fluid collections. Ventricles are normal in size and shape. Brain: Resection versus biopsy changes can be seen involving the right superior frontal lobe, with u nderlying calcification, as before. No midline shift. No intracranial bleeds or masses. No abnormal intracranial enhancement. Nielson-whi te interface appears normal. Skull and face: Right craniotomy changes are seen. Calvarium and visualized facial bones appear inta ct, without suspicious lesions. Sinuses: Visualized sinuses and mastoids are clear. IMPRESSION: Prior right craniotomy changes are seen, with prior postoperative resection versus biops y changes. There is stable calcification seen within the postoperative region. To the limits of noncontrast brain MRI, no findings of recurrent masses are seen. Reviewed by: Darrel Molina MD on 03/17/2021 2:29 PM AKDT Approved by: Darrel Molina MD on 03/17/2021 2:29 PM AKDT Station ID: [id number]
== END 2021-03-17 12:31 | disposition home or self-care (01) ==
LOC: DI 12:30
PROVIDERS: ATTEND Internal Medicine
DX: C34.90 Malignant neoplasm of unspecified part of unspecified bronchus or lung (principal); Z98.890 Other specified postprocedural states

== ENCOUNTER 2021-04-08 12:00 | Outpatient (CLI) | payer MEDICAID ==
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
== END 2021-04-08 12:01 | disposition home or self-care (01) ==
LOC: PC 12:00
PROVIDERS: ATTEND Nurse Practitioner Adult Health
DX: Z51.5 Encounter for palliative care (principal); C34.92 Malignant neoplasm of unspecified part of left bronchus or lung; C34.91 Malignant neoplasm of unspecified part of right bronchus or lung; C79.31 Secondary malignant neoplasm of brain; G62.9 Polyneuropathy, unspecified; G89.4 Chronic pain syndrome; K21.9 Gastro-esophageal reflux disease without esophagitis; F32.9 Major depressive disorder, single episode, unspecified; F41.9 Anxiety disorder, unspecified; J44.9 Chronic obstructive pulmonary disease, unspecified; F17.200 Nicotine dependence, unspecified, uncomplicated; H26.9 Unspecified cataract; M40.202 Unspecified kyphosis, cervical region; F10.10 Alcohol abuse, uncomplicated; K29.50 Unspecified chronic gastritis without bleeding; Z87.01 Personal history of pneumonia (recurrent); E66.9 Obesity, unspecified; Z89.432 Acquired absence of left foot; I73.9 Peripheral vascular disease, unspecified; Z63.8 Other specified problems related to primary support group

== ENCOUNTER 2021-04-21 13:15 | Outpatient (CLI) | payer MEDICAID ==
[2021-04-21 19:35] LABS: BILIRUBIN,URINE NEGATIVE (NEGATIVE); CLARITY,URINE CLEAR (CLEAR); GLUCOSE, URINE (UA) NEGATIVE (NEGATIVE); KETONES,URINE (UA) NEGATIVE (NEGATIVE); LEUKOCYTE ESTERASE, URINE LARGE (NEGATIVE); NITRITE,URINE NEGATIVE (NEGATIVE); OCCULT BLOOD,URINE TRACE-LYSE (NEGATIVE); PH,URINE 6.5 PH (5.0-7.5); PROTEIN,URINE NEGATIVE (NEGATIVE); UROBILINOGEN,URINE 0.2 (NORMAL) E.U./dL (NORMAL)
[2021-04-21 20:17] LABS: RBC,URINE 0-5 /HPF (0-5); WBC,URINE >25 /HPF (0-3)
[2021-04-21 20:18] LABS: BACTERIA,URINE Moderate /HPF (None Seen); SQUAMOUS EPITHELIAL CELL,UR RARE Squamous (<= Few)
== END 2021-04-21 23:59 | disposition home or self-care (01) ==
LOC: LAB.WCP 13:15
PROVIDERS: ATTEND Family Medicine
DX: R39.11 Hesitancy of micturition (principal)
CPT/HCPCS: 81001; 87086

== ENCOUNTER 2021-06-29 12:15 | Outpatient (CLI) | payer MEDICAID ==
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
== END 2021-06-29 12:16 | disposition home or self-care (01) ==
LOC: PC 12:15
PROVIDERS: ATTEND Nurse Practitioner Adult Health
DX: Z51.5 Encounter for palliative care (principal); M86.672 Other chronic osteomyelitis, left ankle and foot; I73.9 Peripheral vascular disease, unspecified; G62.9 Polyneuropathy, unspecified; Z85.118 Personal history of other malignant neoplasm of bronchus and lung; Z85.841 Personal history of malignant neoplasm of brain; J44.9 Chronic obstructive pulmonary disease, unspecified; I50.9 Heart failure, unspecified; R09.02 Hypoxemia; F41.9 Anxiety disorder, unspecified; F32.A Depression, unspecified; F43.10 Post-traumatic stress disorder, unspecified; F17.210 Nicotine dependence, cigarettes, uncomplicated; G89.4 Chronic pain syndrome; E66.9 Obesity, unspecified

== ENCOUNTER 2021-07-08 14:41 | Outpatient (CLI) | payer MEDICAID ==
--- NOTE | 2021-07-08 16:09 | XRAY Report ---
PROCEDURE: Foot 3 View LT INDICATIONS: R/O OSTEOMYELITIS TECHNIQUE: 3 views of the foot were acquired. COMPARISON: X-ray foot 10/20/2020 FINDINGS: Bones: There has been amputation of the first, second, third and fourth digits distal to the metatars al with the fourth digit demonstrating partial distal fourth metatarsal resection. There appears to b e presence of the fifth digit in its entirety although dislocated at the end TP joint. No distinctive areas of erosion are identified. Soft tissues: No tibiotalar joint effusion. Achilles tendon appears normal. IMPRESSION: Prominent postsurgical changes as above with dislocation at the fifth digit, unchanged compared to pr ior exam. No definitive erosions to suggest osteomyelitis. However, if concern persists, MRI is recommended as it is more sensitive for early changes. Reviewed by: Sherrell Walls MD on 07/08/2021 4:08 PM PST Approved by: Sherrell Walls MD on 07/08/2021 4:08 PM [facility] Station ID: [id number]
== END 2021-07-08 14:42 | disposition home or self-care (01) ==
LOC: DI.N 14:41
PROVIDERS: ATTEND Nurse Practitioner
DX: G62.9 Polyneuropathy, unspecified (principal); L97.526 Non-pressure chronic ulcer of other part of left foot with bone involvement without evidence of necrosis; L03.90 Cellulitis, unspecified

== ENCOUNTER 2021-07-26 16:00 | Outpatient (CLI) | payer MEDICAID | END 2021-07-26 16:01 | disposition short-term general hospital (02) | LOC: EMS 16:00 | DX: M79.673 Pain in unspecified foot (principal) | CPT/HCPCS: A0425; A0429; A0999 ==

== ENCOUNTER 2021-09-06 13:40 | Outpatient (CLI) | payer MEDICAID ==
[2021-09-06] MEDS ORDERED: GADOBUTROL 10 MMOL/10 ML VIAL ONE (14:09)
[2021-09-06] MEDS ORDERED: GADOBUTROL 10 MMOL/10 ML VIAL IVP ONE (16:53)
--- NOTE | 2021-09-07 09:50 | MRI Report ---
PROCEDURE: Foot LT W/WO INDICATIONS: CHRONIC ULCER LEFT FOOT CONTRAST: IV CONTRAST: Gadavist ml: 10 TECHNIQUE: Noncontrast coronal T1 spin echo and STIR, sagittal T1 spin echo with fat saturation and STIR, axial T1 spin echo and T2 fast spin echo with fat saturation. After the administration of contrast, axial/ sagittal/coronal T1 spin echo with fat saturation through the left foot. COMPARISON: October 21, 2020 Reference is made to the left foot radiograph dated July 08, 2021. FINDINGS: Image quality: Images are degraded by motion artifact. BONES: Abnormal T2 hyperintense/T1 hypointense signal seen in the distal aspect of the first, second, fourth, and fifth metatarsal bones, which exhibits contrast enhancement and are compatible with oste omyelitis. Similar abnormal signal is seen within the first cuneiform and base of the fifth proximal phalanx, which may reflect reactive change versus early osteomyelitis. Dorsal dislocation of the fifth proximal phalanx in relation to the metatarsal. The remaining visualized osseous structures demonstrate normal marrow signal. SOFT TISSUES: No soft tissue masses are visualized. The scanned muscles demonstrate diffuse fatty a trophy. Reticulated and confluent T2 hyperintense/T1 hypointense signal seen in the dorsal soft tissues, comp atible with cellulitis. No discrete fluid collection is appreciated to suggest an abscess. Suggestion of ulcer/erosion overlying the second and fifth metatarsal heads. IMPRESSION: 1. Diffuse synovitis. 2. Osteomyelitis of the first, second, fourth, and fifth metatarsal bones. 3. Findings concerning for early osteomyelitis versus reactive edema involving the first cuneiform an d fifth proximal phalanx base. 4. Dorsal dislocation about the fifth MTP. 5. Suggestion of ulcer/erosion overlying the second and fifth metatarsal heads. Reviewed by: Rohit Red MD on 09/07/2021 9:49 AM PDT Approved by: Rohit Red MD on 09/07/2021 9:49 AM PDT Station ID: [id number]
--- NOTE | 2021-09-09 15:18 | WOUND CARE PROGRESS NOTE ---
Assessment/Plan - Home Meds/Allergies Allergies BRONWYN Inhibitors Allergy (Verified 01/09/21 01:39) Emesis clavulanic acid [From Augmentin] Allergy (Verified 01/09/21 01:39) Emesis lisinopril Allergy (Verified 01/09/21 01:39) "THROAT SWELLING" Patient states he is not allergic to amoxicillin, only to "medication it is mixed with. - Additional Planning Condition/Complexity: Stable Plan Discussed with:: Patient Meds/Allgy - Home Medications Home Medications: Ambulatory Orders Medication Instructions Recorded Confirmed Lorazepam [Ativan] 1 mg PO Q8HR PRN 09/23/15 06/29/21 Tamsulosin [Flomax] 0.4 mg PO DAILY 06/29/16 06/29/21 Lidocaine Ointment 5% [Xylocaine 1 applic TOP PRN PRN 08/20/17 06/29/21 Ointment 5%] Gabapentin [Neurontin] 1,600 mg PO BID 09/27/17 06/29/21 Levetiracetam [Keppra] 500 mg PO BID #30 tablet 11/23/17 06/29/21 Ondansetron Odt [Zofran Odt] 4 mg TL Q6H PRN #15 tablet 03/19/18 06/29/21 Albuterol Sulf [Ventolin Hfa 2 puffs INH Q4HR PRN 05/09/18 06/29/21 Inhaler] Melatonin 6 mg PO QPM PRN 05/09/18 06/29/21 Chlorhexidine Gluconate [Peridex] 30 ml PO BID PRN 12/18/18 06/29/21 Magnesium 500 mg PO DAILY 12/18/18 06/29/21 polyethylene glycoL 3350 [Miralax] 17 gm PO DAILY PRN 12/18/18 06/29/21 Budesonide/Formoterol Fumarate 2 puffs IH BID 12/20/18 06/29/21 [Symbicort 160-4.5 Mcg Inhaler] Montelukast [Singulair] 10 mg PO QPM #30 tablet 12/28/18 06/29/21 Ipratropium/Albuterol [Duoneb] 3 ml INH Q4HR PRN MDD hold no 02/15/19 06/29/21 nebulizzer Loperamide HCl [Loperamide] 2 mg PO QID PRN 02/23/19 06/29/21 Docusate Sodium 100 mg PO BID 05/13/19 06/29/21 Metoprolol Succinate 50 mg PO DAILY 08/05/19 06/29/21 Naloxone HCl Nasal [Narcan Nasal] 1 spr CHANCE ONCE PRN 08/05/19 06/29/21 Nystatin 5 ml PO TID PRN 08/05/19 06/29/21 Nystatin Cream [Mycostatin Cream] 1 applic TOP BID 08/05/19 06/29/21 Spironolactone [Aldactone] 25 mg PO DAILY 08/05/19 06/29/21 Triamcinolone 0.1% Cream [Kenalog 1 applic TOP BID PRN 10/27/19 06/29/21 0.1% Cream] oxyCODONE [Roxicodone] 10 - 20 mg PO Q4HR MDD 8 tabs 02/06/20 06/29/21 Loratadine [Claritin] 10 mg PO DAILY 06/16/20 06/29/21 Finasteride [Proscar] 5 mg PO DAILY 10/20/20 06/29/21 Ketotifen Fumarate [Alaway] 1 drops EACHEYE PRN PRN 10/20/20 06/29/21 Torsemide 20 mg PO DAILY 10/20/20 04/10/21 diphenhydrAMINE [Benadryl] 12.5 - 25 mg PO PRN PRN 10/20/20 06/29/21 B Complx/C/Folic/Zinc/Cup Barkley/E 1 tab PO DAILY 12/06/20 06/29/21 [Aepfvxamlawf-Refr-Povkks Tab] Doxycycline Hyclate [Vibramycin] 100 mg PO BID #20 cap MDD 14 days 06/07/21 06/29/21 Ciprofloxacin HCl 500 tablet PO BID MDD 14 days 06/29/21 06/29/21 cephALEXin [Keflex] 500 mg PO TID #30 cap 07/20/21 cephALEXin [Keflex] 500 mg PO TID #30 cap 08/30/21 cephALEXin [Keflex] 500 mg PO TID #30 cap 09/09/21 - Allergies Allergies/Adverse Reactions: Allergies Allergy/AdvReac Type Severity Reaction Status Date / Time BRONWYN Inhibitors Allergy Emesis Verified 01/09/21 01:39 clavulanic acid Allergy Emesis Verified 01/09/21 01:39 [From Augmentin] lisinopril Allergy "THROAT Verified 01/09/21 01:39 SWELLING"
== END 2021-09-06 13:41 | disposition home or self-care (01) ==
LOC: DI 13:40
PROVIDERS: ATTEND Nurse Practitioner
DX: M86.9 Osteomyelitis, unspecified (principal); L97.529 Non-pressure chronic ulcer of other part of left foot with unspecified severity; G62.9 Polyneuropathy, unspecified; S93.125A Dislocation of metatarsophalangeal joint of left lesser toe(s), initial encounter; M65.9 Synovitis and tenosynovitis, unspecified
CPT/HCPCS: 73720; A9585

== ENCOUNTER 2021-09-07 14:38 | Outpatient (CLI) | payer MEDICAID ==
--- NOTE | 2021-09-07 18:05 | Ultrasound Report ---
PROCEDURE: Duplex Lwr Ext Arterial LT INDICATIONS: PAD, CHRONIC LEFT FOOT ULCER TECHNIQUE: Color and pulse Doppler interrogation was performed of the left lower extremity arterial system, with image documentation. COMPARISON: None. FINDINGS: Common femoral artery: 109 cm/sec, with monophasic flow. Deep femoral artery: 61 cm/sec, with triphasic flow. Proximal superficial femoral artery: 99 cm/sec, with monophasic flow. Mid superficial femoral artery: 109 cm/sec, with monophasic flow. Distal superficial femoral artery: 136 cm/sec, with monophasic flow. Popliteal artery: 119 cm/sec, with monophasic flow. Posterior tibial artery: 139 cm/sec, with monophasic flow. Anterior tibial artery/dorsalis pedis: 105/100 cm/sec, with monophasic flow. Nielson-scale imaging description: Intimal thickening with atheromatous change. IMPRESSION: 1. No hemodynamic stenosis present. Reviewed by: Rohit Red MD on 09/07/2021 6:04 PM PDT Approved by: Rohit Red MD on 09/07/2021 6:04 PM PDT Station ID: [id number]
== END 2021-09-07 14:39 | disposition home or self-care (01) ==
LOC: DI 14:38
PROVIDERS: ATTEND Family Medicine
DX: I73.9 Peripheral vascular disease, unspecified (principal); L97.529 Non-pressure chronic ulcer of other part of left foot with unspecified severity

== ENCOUNTER 2021-10-10 08:00 | Outpatient (CLI) | payer MEDICAID ==
[2021-10-10 17:12] LABS: BASOPHILS % (AUTO) 0.6 %; EOSINOPHILS # (AUTO) 0.2 10^3/uL (0.0-0.7); EOSINOPHILS % (AUTO) 2.9 %; HCT - HEMATOCRIT 37.6 % (42.0-52.0); LYMPHOCYTES # (AUTO) 1.3 10^3/uL (1.5-3.5); LYMPHOCYTES % (AUTO) 19.2 %; MEAN CORPUSCULAR HEMOGLOBIN 25.4 pg (27.0-31.0); MEAN CORPUSCULAR HGB CONC 31.9 g/dL (32.0-36.0); MEAN CORPUSCULAR VOLUME 79.7 fL (80.0-94.0); MEAN PLATELET VOLUME 10.2 fL (7.4-11.4); MONOCYTES # (AUTO) 0.6 10^3/uL (0.0-1.0); MONOCYTES % (AUTO) 8.4 %; NEUTROPHILS # (AUTO) 4.6 10^3/uL (1.5-6.6); NEUTROPHILS % (AUTO) 68.7 %; PLT - PLATELET COUNT 111 10^3/uL (130-450); RED BLOOD COUNT 4.72 10^6/uL (4.70-6.10); RED CELL DISTRIBUTION WIDTH 22.4 % (12.0-15.0); WHITE BLOOD COUNT 6.7 x10^3/uL (4.8-10.8)
[2021-10-10 17:23] LABS: CREATININE 2.2 mg/dL (0.6-1.2); MAGNESIUM 1.8 mg/dL (1.7-2.8); POTASSIUM 3.8 mmol/L (3.5-5.0)
[2021-10-10 18:40] LABS: PLATELET ESTIMATE, MANUAL DECREASED (<130,000) (NORMAL); PLATELET MORPHOLOGY NORMAL APPEARANCE (NORMAL); SLIDE REVIEW? Indicated
[2021-10-10 18:41] LABS: WBC MORPHOLOGY (MULTIPLE) NORMAL APPEARANCE (NORMAL)
== END 2021-10-10 08:01 | disposition home or self-care (01) ==
LOC: LAB.R 08:00
PROVIDERS: ATTEND Family Medicine
DX: M86.9 Osteomyelitis, unspecified (principal)
CPT/HCPCS: 80048; 83735; 85025

== ENCOUNTER 2021-10-13 11:15 | Outpatient (CLI) | payer MEDICAID ==
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
== END 2021-10-13 11:16 | disposition home or self-care (01) ==
LOC: PC 11:15
PROVIDERS: ATTEND Nurse Practitioner Adult Health
DX: Z51.5 Encounter for palliative care (principal); G89.4 Chronic pain syndrome; G62.1 Alcoholic polyneuropathy; F17.210 Nicotine dependence, cigarettes, uncomplicated; N17.9 Acute kidney failure, unspecified; J44.9 Chronic obstructive pulmonary disease, unspecified; F32.A Depression, unspecified; Z79.891 Long term (current) use of opiate analgesic; Z79.899 Other long term (current) drug therapy; Z99.81 Dependence on supplemental oxygen; Z89.432 Acquired absence of left foot; Z59.2 Discord with neighbors, lodgers and landlord; Z59.6 Low income; Z74.1 Need for assistance with personal care

== ENCOUNTER 2022-02-19 13:28 | Outpatient (CLI) | payer MEDICAID | END 2022-02-19 23:59 | disposition critical access hospital (66) | LOC: EMS 13:28 | DX: R06.09 Other forms of dyspnea (principal); R60.0 Localized edema | CPT/HCPCS: A0425; A0429; A0999 ==

== ENCOUNTER 2022-04-11 12:26 | Outpatient (CLI) | payer MEDICAID | END 2022-04-11 12:27 | disposition home or self-care (01) | LOC: DI 12:26 | PROVIDERS: ATTEND Nurse Practitioner | DX: I50.42 Chronic combined systolic (congestive) and diastolic (congestive) heart failure (principal) | CPT/HCPCS: 93306 ==

== ENCOUNTER 2022-07-26 15:29 | Outpatient (CLI) | payer MEDICAID | END 2022-07-26 15:30 | disposition critical access hospital (66) | LOC: EMS 15:29 | DX: I46.9 Cardiac arrest, cause unspecified (principal) | CPT/HCPCS: A0425; A0427; A0999 ==

== ENCOUNTER 2022-07-26 15:44 | Emergency (ER) | payer MEDICAID ==
[2022-07-26] MEDS ORDERED: PROPOFOL 1000 MG/100 ML 1,000 MG/100 ML BOTTLE IV STA (15:55)
--- OUTSIDE RECORDS SUMMARY | 2022-07-26 15:56 | EXTERNAL MEDICAL SUMMARY RPT | Continuity of Care Document ---
:1960 Author Organization [facility] Address [address] [place] [address] Phone Care Team Providers Name Role Phone Unavailable Unavailable Unavailable Shawn, Provider Unavailable Unavailable Allergies No information. Encounters No information. Functional Status No information. Immunizations No information. Medications date description facility 2022-05-22 00:00 chlorhexidine gluconate All 2022-06-08 00:00 chlorhexidine gluconate All 2022-05-26 00:00 famotidine All 2022-06-06 00:00 azithromycin All 2022-06-08 00:00 diphenhydramine hcl All 2022-06-08 00:00 docusate sodium All 2022-06-08 00:00 diphenhydramine hcl All 2022-05-22 00:00 nystatin All 2022-06-08 00:00 nystatin All 2022-06-08 00:00 omeprazole All 2022-06-08 00:00 diclofenac sodium All 2022-05-22 00:00 chlorhexidine gluconate All 2022-06-08 00:00 chlorhexidine gluconate All 2022-05-26 00:00 famotidine All 2022-06-06 00:00 azithromycin All 2022-05-26 00:00 famotidine All 2022-06-08 00:00 gabapentin All 2022-05-22 00:00 nystatin All 2022-06-08 00:00 nystatin All 2022-06-08 00:00 diphenhydramine hcl All 2022-06-08 00:00 gabapentin All 2022-06-08 00:00 docusate sodium All 2022-05-26 00:00 famotidine All 2022-06-08 00:00 omeprazole All 2022-06-08 00:00 diphenhydramine hcl All 2022-06-06 00:00 azithromycin All 2022-06-08 00:00 docusate sodium All 2022-06-06 00:00 azithromycin All 2022-06-08 00:00 gabapentin All 2022-05-22 00:00 nystatin All 2022-06-08 00:00 nystatin All 2022-06-08 00:00 omeprazole All 2022-06-08 00:00 omeprazole All 2022-06-08 00:00 diclofenac sodium All 2022-06-08 00:00 docusate sodium All 2022-06-08 00:00 gabapentin All 2022-05-22 00:00 chlorhexidine gluconate All 2022-06-08 00:00 chlorhexidine gluconate All 2022-06-08 00:00 diclofenac sodium All 2022-05-22 00:00 nystatin All 2022-06-08 00:00 nystatin All 2022-05-22 00:00 chlorhexidine gluconate All 2022-06-08 00:00 chlorhexidine gluconate All 2022-06-08 00:00 diclofenac sodium All Problems date description facility 2022-06-07 00:00 Acute exacerbation of chronic obstructi ve airways All disease 2022-06-07 00:00 Obstructive chronic bronchitis, without exacerbation All 2022-06-07 00:00 Chronic obstructive pulmonary disease w ith (acute) All exacerbation 2022-06-08 00:00 Alcohol abuse All 2022-06-08 00:00 Steatosis of liver All 2022-06-08 00:00 Gastroesophageal reflux disease All 2022-06-08 00:00 Benign prostatic hyperplasia All 2022-06-08 00:00 Other deficiencies of circulating enzym es All 2022-06-08 00:00 Alcohol abuse, unspecified drinking beh avior All 2022-06-08 00:00 Tobacco use disorder All 2022-06-08 00:00 Diverticulitis All 2022-06-08 00:00 Hypertensive disorder All 2022-06-08 00:00 Inguinal hernia All 2022-06-08 00:00 Unspecified essential hypertension All 2022-06-08 00:00 Coronary atherosclerosis of unspecified type of All vessel, [place] or graft 2022-06-08 00:00 Obesity All 2022-06-08 00:00 Esophageal reflux All 2022-06-08 00:00 Coronary arteriosclerosis All 2022-06-08 00:00 Unilateral or unspecified inguinal herni a, without All mention of obstruction or gangrene (not specified as recurrent) 2022-06-08 00:00 Diverticulitis of colon without mention of hemorrhage All 2022-06-08 00:00 Other chronic nonalcoholic liver diseas e All 2022-06-08 00:00 Hemorrhage of gastrointestinal tract, u nspecified All 2022-06-08 00:00 Hypertrophy (benign) of prostate without urinary All obstruction and other lower urinary trac t (LUTS) 2022-06-08 00:00 Gastrointestinal hemorrhage All 2022-06-08 00:00 Hepatomegaly All 2022-06-08 00:00 Large liver All 2022-06-08 00:00 Hereditary angioedema All 2022-06-08 00:00 Tobacco dependence syndrome All 2022-06-08 00:00 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 All 2022-06-08 00:00 Obesity, unspecified All 2022-06-08 00:00 Alcohol abuse, uncomplicated All 2022-06-08 00:00 Nicotine dependence, unspecified, uncom plicated All 2022-06-08 00:00 Essential (primary) hypertension All 2022-06-08 00:00 Atherosclerotic heart disease of [place] coronary All artery without angina pectoris 2022-06-08 00:00 Gastro-esophageal reflux disease withou t esophagitis All 2022-06-08 00:00 Unilateral inguinal hernia, without obst ruction or All gangrene, not specified as recurrent 2022-06-08 00:00 Diverticulitis of intestine, part unspec ified, without All perforation or abscess without bleeding 2022-06-08 00:00 Fatty (change of) liver, not elsewhere classified All 2022-06-08 00:00 Gastrointestinal hemorrhage, unspecifie d All 2022-06-08 00:00 Benign prostatic hyperplasia without lo wer urinary All tract symptoms 2022-06-08 00:00 Hepatomegaly, not elsewhere classified All Procedures No information. Results/Labs test date author facility value unit interpret ation Result panel 1 (unknown) (no date) (unknown) All (no value) (units unknown ) (unknown) Result panel 2 (unknown) (no date) (unknown) All (no value) (units unknown ) (unknown) Result panel 3 (unknown) (no date) (unknown) All (no value) (units unknown ) (unknown) Result panel 4 (unknown) (no date) (unknown) All (no value) (units unknown ) (unknown) Result panel 5 (unknown) (no date) (unknown) All (no value) (units unknown ) (unknown) Result panel 6 (unknown) (no date) (unknown) All (no value) (units unknown ) (unknown) Result panel 7 (unknown) (no date) (unknown) All (no value) (units unknown ) (unknown) Result panel 8 (unknown) (no date) (unknown) All (no value) (units unknown ) (unknown) Result panel 9 (unknown) (no date) (unknown) All (no value) (units unknown ) (unknown) Result panel 10 (unknown) (no date) (unknown) All (no value) (units unknown ) (unknown) Result panel 11 (unknown) (no date) (unknown) All (no value) (units unknown ) (unknown) Result panel 12 (unknown) (no date) (unknown) All (no value) (units unknown ) (unknown) Result panel 13 (unknown) (no date) (unknown) All (no value) (units unknown ) (unknown) Result panel 14 (unknown) (no date) (unknown) All (no value) (units unknown ) (unknown) Result panel 15 (unknown) (no date) (unknown) All (no value) (units unknown ) (unknown) Result panel 16 (unknown) (no date) (unknown) All (no value) (units unknown ) (unknown) Result panel 17 (unknown) (no date) (unknown) All (no value) (units unknown ) (unknown) Result panel 18 (unknown) (no date) (unknown) All (no value) (units unknown ) (unknown) Result panel 19 (unknown) (no date) (unknown) All (no value) (units unknown ) (unknown) Result panel 20 (unknown) (no date) (unknown) All (no value) (units unknown ) (unknown) Result panel 21 (unknown) (no date) (unknown) All (no value) (units unknown ) (unknown) Result panel 22 (unknown) (no date) (unknown) All (no value) (units unknown ) (unknown) Result panel 23 (unknown) (no date) (unknown) All (no value) (units unknown ) (unknown) Result panel 24 (unknown) (no date) (unknown) All (no value) (units unknown ) (unknown) Result panel 25 (unknown) (no date) (unknown) All (no value) (units unknown ) (unknown) Result panel 26 (unknown) (no date) (unknown) All (no value) (units unknown ) (unknown) Result panel 27 (unknown) (no date) (unknown) All (no value) (units unknown ) (unknown) Result panel 28 (unknown) (no date) (unknown) All (no value) (units unknown ) (unknown) Result panel 29 (unknown) (no date) (unknown) All (no value) (units unknown ) (unknown) Result panel 30 (unknown) (no date) (unknown) All (no value) (units unknown ) (unknown) Result panel 31 (unknown) (no date) (unknown) All (no value) (units unknown ) (unknown) Result panel 32 (unknown) (no date) (unknown) All (no value) (units unknown ) (unknown) Result panel 33 (unknown) (no date) (unknown) All (no value) (units unknown ) (unknown) Result panel 34 (unknown) (no date) (unknown) All (no value) (units unknown ) (unknown) Result panel 35 (unknown) (no date) (unknown) All (no value) (units unknown ) (unknown) Result panel 36 (unknown) (no date) (unknown) All (no value) (units unknown ) (unknown) Result panel 37 (unknown) (no date) (unknown) All (no value) (units unknown ) (unknown) Result panel 38 (unknown) (no date) (unknown) All (no value) (units unknown ) (unknown) Result panel 39 (unknown) (no date) (unknown) All (no value) (units unknown ) (unknown) Result panel 40 (unknown) (no date) (unknown) All (no value) (units unknown ) (unknown) Social History No information. Vital Signs date measurement value units 2022-06-07 00:00 heart_rate 96 /min 2022-06-07 00:00 temperature_metric 36.22 C 2022-06-07 00:00 temperature_standard 97.2 F
[2022-07-26] MEDS ORDERED: DIGOXIN 500 MCG/2 ML AMP IVP STA (15:58)
[2022-07-26 16:02] LABS: BASOPHILS % (AUTO) 0.5 %; EOSINOPHILS # (AUTO) 0.1 10^3/uL (0.0-0.7); EOSINOPHILS % (AUTO) 1.4 %; HCT - HEMATOCRIT 34.9 % (42.0-52.0); HGB - HEMOGLOBIN 11.1 g/dL (14.0-18.0); LYMPHOCYTES # (AUTO) 1.5 10^3/uL (1.5-3.5); LYMPHOCYTES % (AUTO) 18.9 %; MEAN CORPUSCULAR HGB CONC 31.8 g/dL (32.0-36.0); MEAN CORPUSCULAR VOLUME 91.1 fL (80.0-94.0); MEAN PLATELET VOLUME 10.4 fL (7.4-11.4); MONOCYTES # (AUTO) 0.6 10^3/uL (0.0-1.0); MONOCYTES % (AUTO) 8.2 %; NEUTROPHILS # (AUTO) 5.2 10^3/uL (1.5-6.6); NEUTROPHILS % (AUTO) 67.5 %; PLT - PLATELET COUNT 118 10^3/uL (130-450); RED BLOOD COUNT 3.83 10^6/uL (4.70-6.10); RED CELL DISTRIBUTION WIDTH 17.3 % (12.0-15.0); WHITE BLOOD COUNT 7.7 x10^3/uL (4.8-10.8)
[2022-07-26 16:09] LABS: VBG BASE EXCESS -6.9 mmol/L (-2 - +2); VBG HCO3 20.1 mmol/L (23-28); VBG PCO2 46.2 mmHg (41-51); VBG PH 7.257 (7.31-7.41); VBG PO2 84.7 mmHg (25-47); VBG TOTAL CO2 21.5 mmol/L (24-29)
[2022-07-26 16:10] LABS: VBG OXYGEN SATURATION 94.7 % (60-80)
--- NOTE | 2022-07-26 16:16 | ED Physician Documentation ---
History of Present Illness - Stated complaint Stated Complaint: ROSC - Chief complaint Chief Complaint: Cardiac - History obtained from History obtained from: EMS - Additonal information Additional information: 62-year-old with history of heart failure, ongoing tobacco abuse, chronic wounds presents by ambulance after cardiac arrest. Lives in an assisted living facility and went outside for smoke break and was found down. He was pulseless. CPR was initiated and prior to emergency department presentation he has had a total of 7 rounds of epinephrine, 1 amp of calcium, 1 amp of bicarb, endotrac heal intubation. On arrival he has a pulse and a blood pressure, he is in rapid A-fib. He is intubated with no spontaneous neurologic activity. With the exception of some overbreathing of the vent. Prior charts reviewed including palliative care notes. He is full code. Has a history of lung cancer as well. Review of Systems Unable to obtain: Intubated PD PAST MEDICAL HISTORY - Past Medical History Cardiovascular: Congestive heart failure, Hypertension, Coronary artery disease Respiratory: COPD, Shortness of breath, Other Neuro: Dementia, Headaches, Peripheral neuropathy, Seizure disorder, Other Endocrine/Autoimmune: None GI: GERD, Chronic constipation, Diverticulitis [facility] PHYSICIAN: None : Benign prostate hypertrophy, Incontinence, Nocturia, Frequency HEENT: Chronic vision loss Psych: Anxiety Musculoskeletal: Chronic back pain, Other Derm: Other - Past Surgical History Past Surgical History: Yes Ortho: Amputation Cardiovascular: Cardiac catheterization Neuro: Craniotomy, Gamma knife - Present Medications Home Medications: Ambulatory Orders Medication Instructions Recorded Confirmed Lorazepam [Ativan] 1 mg PO Q8HR PRN MDD scheduled bid 09/23/15 10/14/21 Tamsulosin [Flomax] 0.4 mg PO DAILY 06/29/16 10/14/21 Lidocaine Ointment 5% [Xylocaine 1 applic TOP PRN PRN 08/20/17 10/14/21 Ointment 5%] Gabapentin [Neurontin] 400 mg PO BID 09/27/17 10/14/21 Levetiracetam [Keppra] 500 mg PO BID #30 tablet 11/23/17 10/14/21 Ondansetron Odt [Zofran Odt] 4 mg TL Q6H PRN #15 tablet 03/19/18 10/14/21 Albuterol Sulf [Ventolin Hfa 2 puffs INH Q4HR PRN 05/09/18 10/14/21 Inhaler] Melatonin 6 mg PO QPM PRN 05/09/18 10/14/21 Chlorhexidine Gluconate [Peridex] 30 ml PO BID PRN 12/18/18 10/14/21 Magnesium 500 mg PO DAILY 12/18/18 10/14/21 polyethylene glycoL 3350 [Miralax] 17 gm PO DAILY PRN 12/18/18 10/14/21 Montelukast [Singulair] 10 mg PO QPM #30 tablet 12/28/18 10/14/21 Ipratropium/Albuterol [Duoneb] 3 ml INH Q4HR PRN MDD hold no 02/15/19 10/14/21 nebulizzer Loperamide HCl [Loperamide] 2 mg PO QID PRN 02/23/19 10/14/21 Docusate Sodium 100 mg PO BID PRN 05/13/19 10/14/21 Metoprolol Succinate 50 mg PO DAILY 08/05/19 10/14/21 Naloxone HCl Nasal [Narcan Nasal] 1 spr CHANCE ONCE PRN 08/05/19 10/14/21 Nystatin 5 ml PO TID PRN 08/05/19 10/14/21 Nystatin Cream [Mycostatin Cream] 1 applic TOP BID 08/05/19 10/14/21 Triamcinolone 0.1% Cream [Kenalog 1 applic TOP BID PRN 10/27/19 10/14/21 0.1% Cream] oxyCODONE [Roxicodone] 10 - 20 mg PO Q4HR MDD 8 tabs 02/06/20 10/14/21 Loratadine [Claritin] 10 mg PO DAILY PRN 06/16/20 10/14/21 Finasteride [Proscar] 5 mg PO DAILY 10/20/20 10/14/21 Ketotifen Fumarate [Alaway] 1 drops EACHEYE PRN PRN 10/20/20 10/14/21 diphenhydrAMINE [Benadryl] 12.5 - 25 mg PO Q6HR PRN 10/20/20 10/14/21 B Complx/C/Folic/Zinc/Cup Barkley/E 1 tab PO DAILY 12/06/20 10/14/21 [Ghvcpjftepjk-Vfkf-Fkarga Tab] Acetaminophen [Tylenol] 650 mg PO Q4HR PRN 10/14/21 10/14/21 Bumetanide 2 mg PO DAILY 10/14/21 10/14/21 Diclofenac Sodium [Diclofenac 4 gm TOP QID PRN 10/14/21 10/14/21 Sodium 3%] Linezolid [Zyvox] 600 mg PO BID MDD 14 days 10/14/21 10/14/21 Omeprazole Magnesium 20 mg PO DAILY 10/14/21 10/14/21 Oxycodone HCl [Oxycontin] 20 mg PO BID 10/14/21 10/14/21 Furosemide [Lasix] 40 mg PO DAILY #5 tablet 02/19/22 cephALEXin [Keflex] 500 mg PO TID 10 Days #30 cap 05/16/22 - Allergies Allergies/Adverse Reactions: Allergies Allergy/AdvReac Type Severity Reaction Status Date / Time BRONWYN Inhibitors Allergy Emesis Verified 07/26/22 16:48 clavulanic acid Allergy Emesis Verified 07/26/22 16:48 [From Augmentin] lisinopril Allergy "THROAT Verified 07/26/22 16:48 SWELLING" - Social History Does the pt smoke?: Yes Smoking Status: Current every day smoker Does the pt drink ETOH?: Yes Does the pt have substance abuse?: No - Immunizations Immunizations are current?: Yes - POLST Patient has POLST: No POLST Status: Full Code PD ED PE NORMAL - Vitals Vital signs reviewed: Yes - General General: Other (Intubated and being bagged with some overbreathing but no other spontaneous neurologic activity.) - HEENT HEENT: Other (Fixed and dilated pupils) - Cardiac Cardiac: Other (Rapid and irregular without murmur) - Respiratory Respiratory: Other (Coarse crackles bilaterally with equal breath sounds) - Abdomen Abdomen: Non tender - Male Male : Other (Large scrotum, question hernia) - Back Back: No CVA TTP, No spinal TTP - Derm Derm: Normal color, Warm and dry - Extremities Extremities: Other (Dusky extremities, no toes on the left foot.) - Neuro Eye Opening: None Motor: None Verbal: None GCS Score: 3 Results - Vitals Vitals: Vital Signs - 24 hr 07/26/22 07/26/22 07/26/22 15:44 16:00 16:05 Temperature Heart Rate 76 160 H 130 H Respiratory 30 H 23 18 Rate Blood Pressure 113/77 98/80 134/106 H O2 Saturation 92 92 98 07/26/22 07/26/22 07/26/22 16:10 16:15 16:40 Temperature 34.4 C L 34.4 C L 34.4 C L Heart Rate 120 H 75 64 Respiratory 28 H 26 H 18 Rate Blood Pressure 105/77 114/74 125/85 H O2 Saturation 92 92 94 07/26/22 07/26/22 07/26/22 16:48 17:37 17:52 Temperature 34.5 C L 34.3 C L Heart Rate 77 52 L 71 Respiratory 16 30 H Rate Blood Pressure 134/93 H 138/83 H O2 Saturation 94 90 L 07/26/22 07/26/22 18:07 18:15 Temperature 34.2 C L Heart Rate 70 83 Respiratory 28 H 18 Rate Blood Pressure 130/80 138/83 H O2 Saturation 90 L 80 L Oxygen O2 Source [] Room air O2 Source Room air - EKG (time done) 1648 Rate: Rate (enter#) (74) Rhythm: Atrial flutter Intervals: RBBB (incomplete) Ischemia: ST depression (Significant ST depression in the precordial) Computer interpretation: Agree with computer - Labs Labs: Laboratory Tests 07/26/22 07/26/22 07/26/22 15:54 15:54 15:54 WBC 7.7 RBC 3.83 L Hgb 11.1 L Hct 34.9 L MCV 91.1 MCH 29.0 MCHC 31.8 L RDW 17.3 H Plt Count 118 L MPV 10.4 Neut # (Auto) 5.2 Lymph # (Auto) 1.5 Bollinger # (Auto) 0.6 Eos # (Auto) 0.1 Baso # (Auto) 0.0 Absolute Nucleated RBC 0.00 Nucleated RBC % 0.0 PT 15.7 H INR 1.4 H D-Dimer > 1050.0 H VBG pH VBG pCO2 VBG pO2 VBG HCO3 VBG Total CO2 VBG O2 Saturation VBG Base Excess Sodium 124 L Potassium 5.8 H Chloride 92 L Carbon Dioxide 19 L Anion Gap 13.0 BUN 41 H Creatinine 3.2 H Estimated GFR (MDRD) 20 L Glucose 165 H Lactic Acid Calcium 8.6 Phosphorus 5.5 H Magnesium 2.7 Total Bilirubin 0.5 AST 40 ALT 18 Alkaline Phosphatase 73 Troponin I High Sens B-Natriuretic Peptide Total Protein 6.3 L Albumin 3.0 L Globulin 3.3 Albumin/Globulin Ratio 0.9 L TSH Urine HCG, Qual Nasal Adenovirus (PCR) Nasal B. parapertussis DNA (PCR) Nasal Coronavir 229E PCR Nasal Coronavir HKU1 PCR Nasal Coronavir NL63 PCR Nasal Coronavir OC43 PCR Nasal Enterovir/Rhinovir PCR Nasal Influenza B PCR Nasal Influenza A PCR Nasal Parainfluen 1 PCR Nasal Parainfluen 2 PCR Nasal Parainfluen 3 PCR Nasal Parainfluen 4 PCR Nasal RSV (PCR) Nasal B.pertussis DNA PCR Nasal C.pneumoniae (PCR) Chance Human Metapneumo PCR Nasal M.pneumoniae (PCR) Nasal SARS-CoV-2 (PCR) Salicylates < 6.0 Urine Opiates Screen Ur Oxycodone Screen Urine Methadone Screen Ur Propoxyphene Screen Acetaminophen < 10 L Ur Barbiturates Screen Ur Tricyclics Screen Ur Phencyclidine Scrn Ur Amphetamine Screen U Methamphetamines Scrn U Benzodiazepines Scrn Urine Cocaine Screen U Cannabinoids Screen Ethyl Alcohol < 5.0 07/26/22 07/26/22 07/26/22 15:54 15:54 15:54 WBC RBC Hgb Hct MCV MCH MCHC RDW Plt Count MPV Neut # (Auto) Lymph # (Auto) Bollinger # (Auto) Eos # (Auto) Baso # (Auto) Absolute Nucleated RBC Nucleated RBC % PT INR D-Dimer VBG pH VBG pCO2 VBG pO2 VBG HCO3 VBG Total CO2 VBG O2 Saturation VBG Base Excess Sodium Potassium Chloride Carbon Dioxide Anion Gap BUN Creatinine Estimated GFR (MDRD) Glucose Lactic Acid 4.7 H* Calcium Phosphorus Magnesium Total Bilirubin AST ALT Alkaline Phosphatase Troponin I High Sens 22.5 H* B-Natriuretic Peptide 1143 H Total Protein Albumin Globulin Albumin/Globulin Ratio TSH Urine HCG, Qual Nasal Adenovirus (PCR) Nasal B. parapertussis DNA (PCR) Nasal Coronavir 229E PCR Nasal Coronavir HKU1 PCR Nasal Coronavir NL63 PCR Nasal Coronavir OC43 PCR Nasal Enterovir/Rhinovir PCR Nasal Influenza B PCR Nasal Influenza A PCR Nasal Parainfluen 1 PCR Nasal Parainfluen 2 PCR Nasal Parainfluen 3 PCR Nasal Parainfluen 4 PCR Nasal RSV (PCR) Nasal B.pertussis DNA PCR Nasal C.pneumoniae (PCR) Chance Human Metapneumo PCR Nasal M.pneumoniae (PCR) Nasal SARS-CoV-2 (PCR) Salicylates Urine Opiates Screen Ur Oxycodone Screen Urine Methadone Screen Ur Propoxyphene Screen Acetaminophen Ur Barbiturates Screen Ur Tricyclics Screen Ur Phencyclidine Scrn Ur Amphetamine Screen U Methamphetamines Scrn U Benzodiazepines Scrn Urine Cocaine Screen U Cannabinoids Screen Ethyl Alcohol 07/26/22 07/26/22 07/26/22 15:54 15:54 16:10 WBC RBC Hgb Hct MCV MCH MCHC RDW Plt Count MPV Neut # (Auto) Lymph # (Auto) Bollinger # (Auto) Eos # (Auto) Baso # (Auto) Absolute Nucleated RBC Nucleated RBC % PT INR D-Dimer VBG pH 7.257 L VBG pCO2 46.2 VBG pO2 84.7 H VBG HCO3 20.1 L VBG Total CO2 21.5 L VBG O2 Saturation 94.7 H VBG Base Excess -6.9 L Sodium Potassium Chloride Carbon Dioxide Anion Gap BUN Creatinine Estimated GFR (MDRD) Glucose Lactic Acid Calcium Phosphorus Magnesium Total Bilirubin AST ALT Alkaline Phosphatase Troponin I High Sens B-Natriuretic Peptide Total Protein Albumin Globulin Albumin/Globulin Ratio TSH 6.63 H Urine HCG, Qual Nasal Adenovirus (PCR) NOT DETECTED Nasal B. parapertussis DNA (PCR) NOT DETECTED Nasal Coronavir 229E PCR NOT DETECTED Nasal Coronavir HKU1 PCR NOT DETECTED Nasal Coronavir NL63 PCR NOT DETECTED Nasal Coronavir OC43 PCR NOT DETECTED Nasal Enterovir/Rhinovir PCR NOT DETECTED Nasal Influenza B PCR NOT DETECTED Nasal Influenza A PCR NOT DETECTED Nasal Parainfluen 1 PCR NOT DETECTED Nasal Parainfluen 2 PCR NOT DETECTED Nasal Parainfluen 3 PCR NOT DETECTED Nasal Parainfluen 4 PCR NOT DETECTED Nasal RSV (PCR) NOT DETECTED Nasal B.pertussis DNA PCR NOT DETECTED Nasal C.pneumoniae (PCR) NOT DETECTED Chance Human Metapneumo PCR NOT DETECTED Nasal M.pneumoniae (PCR) NOT DETECTED Nasal SARS-CoV-2 (PCR) NOT DETECTED Salicylates Urine Opiates Screen Ur Oxycodone Screen Urine Methadone Screen Ur Propoxyphene Screen Acetaminophen Ur Barbiturates Screen Ur Tricyclics Screen Ur Phencyclidine Scrn Ur Amphetamine Screen U Methamphetamines Scrn U Benzodiazepines Scrn Urine Cocaine Screen U Cannabinoids Screen Ethyl Alcohol 07/26/22 07/26/22 17:07 17:11 WBC RBC Hgb Hct MCV MCH MCHC RDW Plt Count MPV Neut # (Auto) Lymph # (Auto) Bollinger # (Auto) Eos # (Auto) Baso # (Auto) Absolute Nucleated RBC Nucleated RBC % PT INR D-Dimer VBG pH VBG pCO2 VBG pO2 VBG HCO3 VBG Total CO2 VBG O2 Saturation VBG Base Excess Sodium Potassium Chloride Carbon Dioxide Anion Gap BUN Creatinine Estimated GFR (MDRD) Glucose Lactic Acid Calcium Phosphorus Magnesium Total Bilirubin AST ALT Alkaline Phosphatase Troponin I High Sens 60.1 H* B-Natriuretic Peptide Total Protein Albumin Globulin Albumin/Globulin Ratio TSH Urine HCG, Qual Cancelled Nasal Adenovirus (PCR) Nasal B. parapertussis DNA (PCR) Nasal Coronavir 229E PCR Nasal Coronavir HKU1 PCR Nasal Coronavir NL63 PCR Nasal Coronavir OC43 PCR Nasal Enterovir/Rhinovir PCR Nasal Influenza B PCR Nasal Influenza A PCR Nasal Parainfluen 1 PCR Nasal Parainfluen 2 PCR Nasal Parainfluen 3 PCR Nasal Parainfluen 4 PCR Nasal RSV (PCR) Nasal B.pertussis DNA PCR Nasal C.pneumoniae (PCR) Chance Human Metapneumo PCR Nasal M.pneumoniae (PCR) Nasal SARS-CoV-2 (PCR) Salicylates Urine Opiates Screen NEGATIVE Ur Oxycodone Screen POSITIVE H Urine Methadone Screen NEGATIVE Ur Propoxyphene Screen NEGATIVE Acetaminophen Ur Barbiturates Screen NEGATIVE Ur Tricyclics Screen NEGATIVE Ur Phencyclidine Scrn NEGATIVE Ur Amphetamine Screen NEGATIVE U Methamphetamines Scrn NEGATIVE U Benzodiazepines Scrn POSITIVE H Urine Cocaine Screen NEGATIVE U Cannabinoids Screen NEGATIVE Ethyl Alcohol - Rads (name of study) Single view chest x-ray shows lines and tubes in good position, cardiomegaly skinfold artifact. Radiology: Final report received, EMP read indepedently CT of the head is stable with atrophy and chronic ischemic change Radiology: Final report received, EMP read indepedently Procedures - Central Line - Major Central Line Preparation: Unable to obtain consent, Time out completed, Ultrasound used, Sterile prep and drape Central line location: Right IJ Central line type: Triple lumen Central line aftercare: Chlorhexidine disc placed, Secured, Placement confirmed, No pneumothorax, No complications, Bundle checklist complete, Pt tolerated well PD Medical Decision Making - ED course Complexity details: reviewed old records (Prior palliative care notes, he is full code per those but "living on borrowed time.") ED course: 62-year-old full code gentleman but with multiple comorbidities presents after out of hospital cardiac arrest with ROSC. He developed some hypotension. Prehospital he was receiving an epinephrine drip and this was reinstituted at 4 mcg/min. A central line was placed. He had already been intubated prehospital. Daughter arrived to the hospital and we started talking around 4:20 PM. She is the POA. He was in rapid A-fib, the acuity of which was unclear. He was loaded with digoxin with good rate control. Did not want to use beta-blockers or calcium channel blockers given that he is borderline hemodynamically stable on an epinephrine drip. Propofol was ordered but not initiated at least not initially as he did not seem to need any sedation. Daughter did confirm that if he were to arrest again, he should be DNR. They are considering next steps as far as aggressiveness of therapy. Subsequently at about 6 PM the daughter made the decision to transition him to comfort care. We discussed this at length and she is sure of the decision. She requested we extubate him. This was done at approximately 6:20 PM. He was pretreated with some morphine. Subsequent to that he did have a lot of secretions and gagging but nothing purposeful. He was medicated for comfort. At 7:50 PM I was called into the room. He had a wide-complex agonal bradycardia on the monitor. On evaluation at that time he had fixed and dilated pupils with no heart sounds or respiratory motion. Time of 7:52 PM. 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
[2022-07-26 16:17] LABS: INR 1.4 (0.8-1.2); PT - PROTHROMBIN TIME 15.7 secs (9.9-12.6)
[2022-07-26 16:18] LABS: ACETAMINOPHEN < 10 ug/mL (10-30); ALBUMIN/GLOBULIN RATIO 0.9 (1.0-2.2); ALKALINE PHOSPHATASE 73 IU/L (42-121); ALT ALANINE AMINOTRANSFERASE 18 IU/L (10-60); AST ASPARTATE AMINOTRANSFERASE 40 IU/L (10-42); BILIRUBIN,TOTAL 0.5 mg/dL (0.2-1.0); BUN - BLOOD UREA NITROGEN 41 mg/dL (6-20); CALCIUM 8.6 mg/dL (8.5-10.3); CARBON DIOXIDE - CO2 19 mmol/L (21-32); CHLORIDE 92 mmol/L (101-111); CREATININE 3.2 mg/dL (0.6-1.2); ETOH - ETHANOL < 5.0 mg/dL; GFR - MDRD 20 (>89); GLUCOSE 165 mg/dL (70-100); MAGNESIUM 2.7 mg/dL (1.7-2.8); PHOSPHORUS 5.5 mg/dL (2.5-4.6); POTASSIUM 5.8 mmol/L (3.5-5.0); SALICYLATE < 6.0 mg/dL; SODIUM 124 mmol/L (135-145); TOTAL PROTEIN 6.3 g/dL (6.7-8.2)
[2022-07-26 16:24] LABS: D-DIMER > 1050.0 ng/mL (200.0-255.0)
[2022-07-26] MEDS ORDERED: EPINEPHrine 4 MG in DEXTROSE 5% 246 ML IV STA (16:25)
[2022-07-26] MEDS ORDERED: iohexoL-300 100 ML VIAL ONE (16:42)
[2022-07-26] MEDS ORDERED: iohexoL-300 100 ML VIAL IVP ONE (16:52)
[2022-07-26] MEDS ORDERED: SODIUM CHLORIDE 0.9% 1,000 ML IV STA (16:54)
[2022-07-26 17:17] LABS: B. PARAPERTUSSIS- RESP PCR PAN NOT DETECTED; B. PERTUSSIS- RESP PCR PANEL NOT DETECTED; C. PNEUMONIAE- RESP PCR PANEL NOT DETECTED; CORONAVIRUS 229E-RESP PCR NOT DETECTED; CORONAVIRUS HKU1-RESP PCR NOT DETECTED; CORONAVIRUS NL63-RESP PCR NOT DETECTED; CORONAVIRUS OC43-RESP PCR NOT DETECTED; HUMAN METAPNEUMOVIRUS NOT DETECTED; INFLUENZA A- RESP PCR PANEL NOT DETECTED; INFLUENZA B - RESP PCR PANEL NOT DETECTED; M. PNEUMONIAE- RESP PCR PANEL NOT DETECTED; PARAINFLUENZA VIRUS 1 NOT DETECTED; PARAINFLUENZA VIRUS 2 NOT DETECTED; PARAINFLUENZA VIRUS 3 NOT DETECTED; PARAINFLUENZA VIRUS 4 NOT DETECTED; RHINOVIRUS/ENTEROVIRUS NOT DETECTED; RSV- RESP PCR PANEL NOT DETECTED; SARS-CoV-2 -RESP PCR PANEL NOT DETECTED
[2022-07-26 17:21] LABS: MUDS CUTOFF CONCENTRATIONS CUTOFF CONC BELOW:
--- NOTE | 2022-07-26 17:34 | CT Report ---
PROCEDURE: CT brain without contrast INDICATIONS: Cardiac arrest TECHNIQUE: Noncontrast 4.5 mm thick angled axial sections acquired from the foramen magnum to the vertex. For r adiation dose reduction, the following was used: automated exposure control, adjustment of mA and/or kV according to patient size. COMPARISON: 03/21/2022 FINDINGS: Image quality: Excellent. CSF spaces: Basal cisterns are patent. No extra-axial fluid collections. Ventricles are normal in size and shape. Brain: Atrophy and chronic ischemic changes noted. Focal calcification the right superior central gyr us associated with right frontal keyhole craniotomy remains stable. Surrounding gliosis present. Nielson -white distinction is preserved. No intracranial hemorrhage Skull and face: Calvarium and visualized facial bones are intact, without suspicious lesions. As ab ove Sinuses: Visualized sinuses and mastoids are clear. IMPRESSION: Stable CT brain. Atrophy, chronic ischemic change in right frontal calcification with scoliosis are a ll stable Reviewed by: Jamel Ariza MD on 07/26/2022 4:32 PM AKST Approved by: Jamel Ariza MD on 07/26/2022 4:32 PM AKST Station ID: [id number]
--- NOTE | 2022-07-26 17:38 | XRAY Report ---
PROCEDURE: Chest 1 View X-Ray INDICATIONS: Cardiac arrest TECHNIQUE: One view of the chest was acquired. COMPARISON: 06/30/2022 FINDINGS: Surgical changes and devices: Endotracheal tube tip 7 cm spelled the vicente. The left-sided Port-A-C ath the tip in the SVC. Right IJ central venous line in the mid SVC. Lungs and pleura: Bilateral vascular congestion present. Probable skinfold artifact is noted in the left lung apex Mediastinum: heart size is enlarged is enlarged. No pneumothorax. Osseous structures unremarkable. O verlying backboard artifact Bones and chest wall: No suspicious bony lesions. Overlying soft tissues appear unremarkable. IMPRESSION: Cardiomegaly, vascular congestion and interstitial scarring present. Lines and tubes in good position. Probable skinfold artifact noted in the left lung apex. Consider short-term interval follow-up to exc lude pneumothorax Reviewed by: Jamel Ariza MD on 07/26/2022 4:37 PM AKST Approved by: Jamel Ariaz MD on 07/26/2022 4:37 PM AKST Station ID: [id number]
[2022-07-26 17:40] LABS: AMPHETAMINE SCREEN,URINE NEGATIVE (NEGATIVE); BARBITURATE SCREEN,UR NEGATIVE (NEGATIVE); BENZODIAZEPINES SCREEN, URINE POSITIVE (NEGATIVE); COCAINE SCREEN URINE NEGATIVE (NEGATIVE); METHADONE SCREEN, URINE NEGATIVE (NEGATIVE); METHAMPHETAMINES SCREEN, URINE NEGATIVE (NEGATIVE); OPIATE SCREEN, URINE NEGATIVE (NEGATIVE); OXYCODONE SCREEN, URINE POSITIVE (NEGATIVE); PROPOXYPHENE SCREEN, URINE NEGATIVE (NEGATIVE); THC CANNABINOID SCREEN, URINE NEGATIVE (NEGATIVE); TRICYCLIC ANTIDEPRESSANT,URINE NEGATIVE (NEGATIVE)
--- NOTE | 2022-07-26 17:46 | CT Report ---
PROCEDURE: ANGIO CHEST W/WO INDICATIONS: s/p arrest CONTRAST: 80ml Omnipaque 300 TECHNIQUE: After the administration of intravenous contrast, 2 mm axial images were acquired from the pulmonary apices to the posterior costophrenic angles during the arterial phase. In addition, 1 mm lung kernel and 5 mm soft tissue kernel reconstructions were performed. 3-dimensional coronal oblique maximum int ensity projection (MIP) reformats, 8 mm axial MIP, and 5 mm coronal and sagittal MPR reformats were t hen performed through the thorax. For radiation dose reduction, the following was used: automated exp osure control, adjustment of mA and/or kV according to patient size. COMPARISON: 03/21/2022 FINDINGS: Image quality: Excellent. Pulmonary arteries: Pulmonary arteries are normal in size, and demonstrate no intraluminal filling d efects to suggest central pulmonary embolism. Lungs and pleura: Severe pulmonary emphysema. Right lower lobe consolidation with moderate pleural ef fusion is new from the prior exam. Mediastinum: Heart size is enlarged. No pericardial effusion. Mediastinal adenopathy has increased. P revascular node now measures 1.6 x 2.0, previously 1.6 x 0.3 Bones and chest wall: No suspicious bony lesions. Ribs and thoracic spine appear intact throughout. No axillary or supraclavicular adenopathy. The thyroid is normal in size and there are no incident al findings. Right-sided Port-A-Cath in place Abdomen: Nonspecific left-sided perinephric stranding IMPRESSION: No evidence of pulmonary embolism or aortic aneurysm. Enlarging right-sided pleural effusion with associated compressive atelectasis/consolidation Choco advanced pulmonary emphysema. Enlarging mediastinal adenopathy Reviewed by: Jamel Ariza MD on 07/26/2022 4:44 PM AKST Approved by: Jamel Ariza MD on 07/26/2022 4:44 PM AKST Station ID: [id number]
[2022-07-26] MEDS ORDERED: MORPHINE 10 MG/ML VIAL IVP STA ×2 (17:52→19:12)
--- NOTE | 2022-07-26 18:18 | XRAY Report ---
PROCEDURE: No-Charge 1V Abdomen INDICATIONS: ng tube TECHNIQUE: 1 view of the abdomen was acquired. COMPARISON: None FINDINGS: Surgical changes and devices: NGT is present, tip of which project over the gastric fundus. Bowel: No pneumoperitoneum. The bowel gas pattern is normal. Soft tissues: No masses; visualized solid organ contours appear normal in size. No suspicious abdom inal calcifications. Bones: No suspicious bony abnormalities. IMPRESSION: Tip of NGT is within the gastric fundus. Reviewed by: Giovani Mercer MD on 07/26/2022 6:16 PM PST Approved by: Giovani Mercer MD on 07/26/2022 6:16 PM PST Station ID: [id number]
[2022-07-26] MEDS ORDERED: MORPHINE 2 MG/ML CARPUJECT IVP STA (18:19)
[2022-07-26] MEDS ORDERED: LORazepam 2 MG/ML VIAL IVP STA ×2 (18:19→19:12)
[2022-07-26 18:37] VITALS: BP 138/83
== END 2022-07-26 23:11 | disposition expired ==
LOC: EDUNIT# → ED 15:44
DX: I46.9 Cardiac arrest, cause unspecified (principal); I50.9 Heart failure, unspecified; C34.90 Malignant neoplasm of unspecified part of unspecified bronchus or lung; Z86.79 Personal history of other diseases of the circulatory system; I10 Essential (primary) hypertension; F03.90 Unspecified dementia, unspecified severity, without behavioral disturbance, psychotic disturbance, mood disturbance, and anxiety; Z95.1 Presence of aortocoronary bypass graft; F17.200 Nicotine dependence, unspecified, uncomplicated; Z20.822 Contact with and (suspected) exposure to COVID-19
CPT/HCPCS: 36415; 36556; 70450; 71045; 71275; 74018; 80053; 80306; 80307; 80320; 80329; 82803; 83605; 83735; 83880; 84100; 84443; 84484; 85025; 85379; 85610; 87633; 93005; 94002; 96361; 96374; 96375; 96376; 99285; 99291; J2060; Q9967; 81025